=== PATIENT | male | born 1955 | race Caucasian/White ===

== ENCOUNTER 2019-06-24 08:19 | Outpatient (RCR) | payer MEDICARE, SELFPAY | END 2019-07-02 00:01 | LOC: WOUND 08:19 | PROVIDERS: Family Provider Physician Assistant Medical; Visit Provider Nurse Practitioner Family | DX: E11.622 Type 2 diabetes mellitus with other skin ulcer (principal); L97.822 Non-pressure chronic ulcer of other part of left lower leg with fat layer exposed; L97.812 Non-pressure chronic ulcer of other part of right lower leg with fat layer exposed; E11.621 Type 2 diabetes mellitus with foot ulcer; L97.422 Non-pressure chronic ulcer of left heel and midfoot with fat layer exposed ==

== ENCOUNTER 2019-07-29 08:38 | Outpatient (RCR) | payer MEDICARE, OTHER, SELFPAY | END 2019-08-02 23:59 | disposition home or self-care (01) | LOC: WOUND 08:38 | PROVIDERS: Family Provider Physician Assistant Medical; Visit Provider Nurse Practitioner Family | DX: E11.622 Type 2 diabetes mellitus with other skin ulcer (principal); I87.2 Venous insufficiency (chronic) (peripheral); L97.822 Non-pressure chronic ulcer of other part of left lower leg with fat layer exposed; E11.621 Type 2 diabetes mellitus with foot ulcer; L97.422 Non-pressure chronic ulcer of left heel and midfoot with fat layer exposed | CPT/HCPCS: 11042; 99214; G0463 ==

== ENCOUNTER 2019-08-28 08:18 | Outpatient (RCR) | payer MEDICARE, OTHER, SELFPAY | END 2019-08-31 23:59 | disposition home or self-care (01) | LOC: WOUND 08:18 | PROVIDERS: Family Provider Physician Assistant Medical; Visit Provider Nurse Practitioner Family | DX: E11.621 Type 2 diabetes mellitus with foot ulcer (principal); L97.422 Non-pressure chronic ulcer of left heel and midfoot with fat layer exposed; I87.2 Venous insufficiency (chronic) (peripheral); L97.822 Non-pressure chronic ulcer of other part of left lower leg with fat layer exposed | CPT/HCPCS: 11042; 87070; 87077; 87176; 87186; 87205; G0463 ==

== ENCOUNTER 2019-09-18 08:51 | Outpatient (RCR) | payer MEDICARE, OTHER, MEDICAID, SELFPAY | END 2019-10-01 23:59 | disposition home or self-care (01) | LOC: WOUND 08:51 | PROVIDERS: Family Provider Physician Assistant Medical; Visit Provider Emergency Medicine | DX: E11.621 Type 2 diabetes mellitus with foot ulcer (principal); L97.422 Non-pressure chronic ulcer of left heel and midfoot with fat layer exposed; I87.2 Venous insufficiency (chronic) (peripheral); L97.822 Non-pressure chronic ulcer of other part of left lower leg with fat layer exposed | CPT/HCPCS: 11042; L4397 ==

== ENCOUNTER 2019-11-02 22:42 | Emergency (ER) | payer MEDICARE, MEDICAID, SELFPAY ==
[2019-11-02 22:51] VITALS: BP 137/52; PULSE 84; RESP 24; TEMP 38.4; O2SAT 94; BMI 70.6
--- NOTE | 2019-11-02 23:10 | XRR_ITS ---
PROCEDURE INFORMATION: Exam: XR Chest, 1 View Exam date and time: 11/02/2019 11:35 PM Age: 63 years old Clinical indication: Patient HX: C/O fever and weakness TECHNIQUE: Imaging protocol: XR of the chest Views: 1 view. COMPARISON: CR Chest 1 [place] [id number] 07/16/2017 1:15 PM FINDINGS: Lungs: Unremarkable. No consolidation. Pleural space: Unremarkable. No pleural effusion. No pneumothorax. Heart/Mediastinum: Unremarkable. No cardiomegaly. Bones/joints: Unremarkable. XR/XR chest 1V portable [id number] IMPRESSION: No acute findings.
--- NOTE | 2019-11-02 23:15 | W.ED.FALL ---
HPI - Fall General: Chief Complaint: Fall Stated Complaint: FALL/ LOW GRADE TEMP Time Seen by Provider: 11/02/19 22:59 History of Present Illness: HPI Narrative: 63-year-old male presents with generalized weakness, and fall. He states he has had a fever for 6 to 7 days. He has had very little oral intake other than water. He has been generally weak. Tonight, he fell from standing onto his back. He does not complain of back pain. He complains of pain in his left lower quadrant and left groin area. He has a bit of a chronic cough after a bilateral pneumonia in 2018. Otherwise no symptoms as far as his fever. He is not vomited. He did have a colectomy following diverticulitis years ago. MD complaint: fall and other (fever) Onset (ago): day(s) (6) Fall from: standing Fall witnessed: no Place fall occurred: home Prolonged down time: no Symptoms prior to fall: other (generalized weakness) Associated symptoms-after fall: Reports abdominal pain and difficulty walking; Denies chest pain, hematuria or neck pain Review of Systems Const: Reports: fever; Denies: chills Eyes: Denies: change in vision or blurry vision ENMT: Denies: painful swallowing, swelling of lips/tongue, dental pain, Change in hearing or facial/sinus pain Card: Reports: edema; Denies: chest pain, palpitations or irregular heart rhythm Resp: Reports: shortness of breath (chronic) and non-productive cough (chronic, unchanged); Denies: productive cough or wheezing GI: Reports: abdominal pain and nausea; Denies: vomiting, blood in stool or black tarry stool : Denies: difficulty urinating, painful urination or blood in urine Musc: Denies: neck pain, back pain, redness or joint warmth Skin/Breast: Denies: rash or itching Neuro: Reports: difficulty walking Psych: Denies: anxiety PFSH ED PFSH: Social History Smoking and tobacco status: never smoked Physical Exam Const: GENERAL APPEARANCE: well developed ORIENTATION/CONSCIOUSNESS: Yes oriented to person, Yes oriented to place and Yes oriented to time HENMT: COMMON NORMALS: normocephalic, external ears normal and external nose normal HEAD & SCALP: normocephalic NOSE: external nose normal and no nasal discharge EXTERNAL EAR: Yes external ears normal Eye: COMMON NORMALS: PERRL, EOMs intact bilaterally and conjunctivae normal EYELID: eyelids normal CONJUNCTIVA: Yes conjunctivae normal PUPIL: Yes PERRL Neck/C-Spine: GENERAL: No tracheal deviation Chest: COMMONS NORMALS: inspection of chest normal CHEST: No tenderness Resp: COMMON NORMALS: clear to auscultation bilaterally EFFORT & INSPECTION: No tachypneic, No respiratory distress, No retractions, No uses accessory muscles and No tracheal deviation AUSCULTATION: clear to auscultation bilaterally, no rhonchi, no wheezes and lung sounds not diminished Cardio: COMMON NORMALS: regular rate and regular rhythm RATE: regular rate RHYTHM: regular rhythm HEART SOUNDS: no murmurs PERIPHERAL PULSES: radial pulses present GI: INSPECTION: No abdominal distension AUSCULTATION: No hyperactive bowel sounds and No hypoactive bowel sounds PALPATION: Yes tender Details: LLQ, No guarding and No rigid PERCUSSION: no dullness to percussion and no tympanic to percussion Neuro: SENSORIUM/ORIENTATION: Yes oriented to person, Yes oriented to place and Yes oriented to time Psych: COMMON NORMALS: mental status grossly normal Skin: COMMON NORMALS: no rashes or lesions noted GENERAL SKIN EXAM: no rashes or lesions noted Course Vital Signs: Vital signs: Vital Signs Temperature 101.1 F H 11/02/19 22:51 Pulse Rate 84 11/02/19 22:51 Respiratory Rate 24 H 11/02/19 22:51 Blood Pressure 137/52 11/02/19 22:51 Pulse Oximetry 94 11/02/19 22:51 MDM - Fall MDM Narrative: Medical decision making narrative: 63-year-old male with a fever of 101 - 102 for the past few days. His white blood cell count is 16. His chest x-ray is negative. he has left lower quadrant tenderness. He has a history of diverticulitis. This patient weighs 550 pounds, and exceeds our CT scanner weight limit. He has a history of diverticulitis status post hemicolectomy in the past. I suspect diverticulitis. His urinalysis is been acquired but pending. His blood cultures are pending. He is receiving Zosyn. [facility] is the closest CT scanner. We have an accepting emergency room physician there. We will set up his transfer. He will go by ground. Blood pressure currently 115/49, saturations 94% on room air. Heart rate 100. Lab Data: Labs: Lab Results 11/02/19 11/02/19 11/02/19 Range/Units 23:20 23:20 23:40 WBC 16.1 H (4.0-10.0) 10^3/ uL RBC 3.78 L (4.1-5.3) 10^6/u L Hgb 11.5 L (11.7-16.6) g/dL Hct 36.1 L (42.0-52.0) % MCV 95.5 H (80-94) fL MCH 30.4 (28.0-34.0) pg MCHC 31.9 (30.0-36.0) g/dL RDW 14.2 (12.1-15.1) % Plt Count 281 (130-400) 10^3/c mm MPV 8.7 (7.4-10.4) fL Neut % (Auto) 78.7 % Lymph % (Auto) 8.7 % [place] % (Auto) 9.5 % Eos % (Auto) 0.1 % Baso % (Auto) 0.2 % Neut # (Auto) 12.7 H (1.8-7.7) 10^3/u L Lymph # (Auto) 1.4 (0.8-4.8) 10^3/u L [place] # (Auto) 1.5 H (0.2-0.9) 10^3/u L Eos # (Auto) 0.0 (0.0-0.8) 10^3/u L Baso # (Auto) 0.0 (0.0-0.1) 10^3/u L Nucleated RBC % (a uto) 0 % Nucleated RBCs # 0.0 /100WBC Sodium 133 L (136-145) mmol/L Potassium 4.0 (3.5-5.1) mmol/L Chloride 95 L (98-107) mmol/L Carbon Dioxide 24 (22-29) mmol/L Anion Gap 18.0 (5-19) BUN 22 (8-23) mg/dL Creatinine 1.6 H (0.7-1.2) mg/dL GFR Calculation 44.2 L (90-130) mL/min Glucose 140 H (65-115) mg/dL Calculated Osmolal ity 275 L (285-295) mOsm/k g Lactate 0.9 (0.5-2.2) mmol/L Calcium 9.1 (8.5-10.5) mg/dL Total Bilirubin 0.6 (0.15-1.2) mg/dL AST 39 (0-40) U/L ALT 34 (0-41) U/L Alkaline Phosphata se 85 (40-130) IU/L C-Reactive Protein 371.6 H (0.0-4.9) mg/L Total Protein 7.7 (6.6-8.7) g/dL Albumin 3.3 L (3.5-5.2) g/dL Globulin 4.4 (1.3-4.6) g/dL Lipase 14 (13-60) U/L Discharge Plan Discharge Prescriptions: No Action Unable to Assess RF: 0 Coding Level of Care Code ED Campus Administrator for Chg Fwd Exam Comprehensive
[2019-11-02 23:52] LABS: Basophils % 0.2 %; Eosinophils % 0.1 %; Hematocrit 36.1 % (42.0-52.0); Hemoglobin 11.5 g/dL (11.7-16.6); Lymphocytes # 1.4 10^3/uL (0.8-4.8); Lymphocytes % 8.7 %; Mean Corpuscular HGB Conc 31.9 g/dL (30.0-36.0); Mean Corpuscular Hemoglobin 30.4 pg (28.0-34.0); Mean Corpuscular Volume 95.5 fL (80-94); Mean Platelet Volume 8.7 fL (7.4-10.4); Monocytes # 1.5 10^3/uL (0.2-0.9); Monocytes % 9.5 %; Neutrophils # 12.7 10^3/uL (1.8-7.7); Neutrophils % 78.7 %; Nucleated Red Blood Cells % 0 %; Platelet Count 281 10^3/cmm (130-400); Red Blood Count 3.78 10^6/uL (4.1-5.3); Red Cell Distribution Width 14.2 % (12.1-15.1); White Blood Count 16.1 10^3/uL (4.0-10.0)
[2019-11-02 23:55] VITALS: BP 124/62; PULSE 82; RESP 16; O2SAT 96
[2019-11-02 23:59] LABS: Alanine Aminotransferase 34 U/L (0-41); Albumin Level 3.3 g/dL (3.5-5.2); Alkaline Phosphatase 85 IU/L (40-130); Aspartate Amino Transferase 39 U/L (0-40); Blood Urea Nitrogen 22 mg/dL (8-23); Calcium 9.1 mg/dL (8.5-10.5); Carbon Dioxide 24 mmol/L (22-29); Chloride 95 mmol/L (98-107); Globulin 4.4 g/dL (1.3-4.6); Glomerular Filtration Rate 44.2 mL/min (90-130); Glucose 140 mg/dL (65-115); Lipase 14 U/L (13-60); Osmolality Calculated 275 mOsm/kg (285-295); Sodium 133 mmol/L (136-145); Total Bilirubin 0.6 mg/dL (0.15-1.2); Total Protein 7.7 g/dL (6.6-8.7)
[2019-11-03] MEDS: ondansetron 2 mg/ML SDV 2 mL 4 MG IVP (00:04)
[2019-11-03 00:05] LABS: Lactate (Lactic Acid level) 0.9 mmol/L (0.5-2.2)
[2019-11-03] MEDS: sodium chloride 0.9% 1,000 ML 999 ML IV (00:05)
[2019-11-03] MEDS: acetaminophen 325 mg Tablet 650 MG PO (00:05)
[2019-11-03] MEDS: morphine 4 mg/mL SDV 1 mL IVP (00:11)
[2019-11-03 00:14] LABS: C Reactive Protein 371.6 mg/L (0.0-4.9)
[2019-11-03 01:22] VITALS: BP 115/49; PULSE 78; RESP 18; O2SAT 96
[2019-11-03 01:30] VITALS: TEMP 37.4
[2019-11-03] MEDS: piperacillin-tazobactam 3.375 GM in sodium chloride 0.9% (plus) 50 ML IV ×2 (01:50→06:56)
[2019-11-03 02:30] VITALS: BP 136/49; PULSE 72; RESP 16; O2SAT 96
[2019-11-03 03:30] VITALS: BP 140/48; PULSE 78; RESP 16; O2SAT 94
--- NOTE | 2019-11-03 04:50 | PC.NURSE ---
Patient resting in bed with eyes closed. Patient to be transfered after 0700 by EMS.
[2019-11-03 07:00] VITALS: BP 142/66; RESP 18; O2SAT 96
[2019-11-03 07:37] LABS: Add Urine Microscopic? YES; Bilirubin Urine Neg (NEGATIVE); Blood Urine 2+ (Negative); Glucose Urine UA Norm (Normal); Ketones Urine 1+ (Negative); Leukocyte Esterase Urine Negative (Negative); Nitrate Urine Negative (Negative); Protein Urine 1+ (Negative); Urine Color Yellow (Yellow); Urobilinogen Urine 1 mg/dL (Negative); pH Urine 5 (5-7)
[2019-11-03 07:38] LABS: Add Urine Culture? No; Amorphous Sediment Urine 1+; Bacteria Urine TRACE; RBC Urine RARE /hpf (0-2); Squamous Epithelial Cell Urine RARE (0-5); WBC Urine 0-4 /hpf (0-5)
--- NOTE | 2019-11-03 23:07 | PC.NURSE ---
Received positive blood culture from lab (gram positive cocci in clusters), patient transferred to other facility, given zosyn prior to transfer. advised Dr. Banuelos, advised we will await final blood culture report.
== END 2019-11-03 07:50 ==
LOC: ER 11-03 00:09
PROVIDERS: Emergency Provider Emergency Medicine; Family Provider Physician Assistant Medical; PCP Physician Assistant Medical
DX: R53.1 Weakness (principal)
CPT/HCPCS: 12345; 71045; 80053; 81001; 83605; 83690; 85025; 86140; 87040; 87205; 96365; 96367; 96374; 96375; 99283; 99285; J2270; J2405; J2543; J7030

== ENCOUNTER 2019-12-09 10:16 | Outpatient (CLI) | payer MEDICARE, MEDICAID, SELFPAY | END 2019-12-09 10:17 | disposition home or self-care (01) | LOC: WOUND 10:18 | PROVIDERS: PCP Physician Assistant Medical; Visit Provider Nurse Practitioner Family | DX: E11.621 Type 2 diabetes mellitus with foot ulcer (principal); L97.522 Non-pressure chronic ulcer of other part of left foot with fat layer exposed; E11.622 Type 2 diabetes mellitus with other skin ulcer; L97.812 Non-pressure chronic ulcer of other part of right lower leg with fat layer exposed; L97.822 Non-pressure chronic ulcer of other part of left lower leg with fat layer exposed; I87.2 Venous insufficiency (chronic) (peripheral) | CPT/HCPCS: 11042; 99214; G0463 ==

== ENCOUNTER 2019-12-16 09:43 | Outpatient (CLI) | payer MEDICARE, MEDICAID, SELFPAY | END 2019-12-16 09:44 | disposition home or self-care (01) | LOC: WOUND 09:45 | PROVIDERS: PCP Physician Assistant Medical; Visit Provider Nurse Practitioner Family | DX: I87.2 Venous insufficiency (chronic) (peripheral) (principal); L97.812 Non-pressure chronic ulcer of other part of right lower leg with fat layer exposed; L97.822 Non-pressure chronic ulcer of other part of left lower leg with fat layer exposed; E11.621 Type 2 diabetes mellitus with foot ulcer; L97.522 Non-pressure chronic ulcer of other part of left foot with fat layer exposed | CPT/HCPCS: 11042; 11045 ==

== ENCOUNTER 2019-12-23 09:17 | Outpatient (CLI) | payer MEDICARE, MEDICAID, SELFPAY | END 2019-12-23 09:18 | disposition home or self-care (01) | LOC: WOUND 09:20 | PROVIDERS: PCP Physician Assistant Medical; Visit Provider Nurse Practitioner Family | DX: E11.621 Type 2 diabetes mellitus with foot ulcer (principal); L97.522 Non-pressure chronic ulcer of other part of left foot with fat layer exposed; L97.422 Non-pressure chronic ulcer of left heel and midfoot with fat layer exposed; I87.2 Venous insufficiency (chronic) (peripheral); L97.812 Non-pressure chronic ulcer of other part of right lower leg with fat layer exposed; L97.822 Non-pressure chronic ulcer of other part of left lower leg with fat layer exposed | CPT/HCPCS: 11042; 11045 ==

== ENCOUNTER 2019-12-30 10:19 | Outpatient (CLI) | payer MEDICARE, MEDICAID, SELFPAY | END 2019-12-30 10:20 | disposition home or self-care (01) | LOC: WOUND 10:22 | PROVIDERS: PCP Physician Assistant Medical; Visit Provider Nurse Practitioner Family | DX: E11.621 Type 2 diabetes mellitus with foot ulcer (principal); L97.422 Non-pressure chronic ulcer of left heel and midfoot with fat layer exposed; I87.2 Venous insufficiency (chronic) (peripheral); L97.812 Non-pressure chronic ulcer of other part of right lower leg with fat layer exposed; L97.822 Non-pressure chronic ulcer of other part of left lower leg with fat layer exposed | CPT/HCPCS: 11042; 11045 ==

== ENCOUNTER 2020-01-13 09:24 | Outpatient (CLI) | payer MEDICARE, MEDICAID, SELFPAY | END 2020-01-13 09:25 | disposition home or self-care (01) | LOC: WOUND 09:27 | PROVIDERS: PCP Emergency Medicine; Visit Provider Emergency Medicine | DX: E11.621 Type 2 diabetes mellitus with foot ulcer (principal); L97.422 Non-pressure chronic ulcer of left heel and midfoot with fat layer exposed; I87.2 Venous insufficiency (chronic) (peripheral); L97.812 Non-pressure chronic ulcer of other part of right lower leg with fat layer exposed; L97.822 Non-pressure chronic ulcer of other part of left lower leg with fat layer exposed; L97.522 Non-pressure chronic ulcer of other part of left foot with fat layer exposed | CPT/HCPCS: 11042; 11045 ==

== ENCOUNTER 2020-01-20 13:06 | Outpatient (CLI) | payer MEDICARE, MEDICAID, SELFPAY | END 2020-01-20 13:07 | disposition home or self-care (01) | LOC: WOUND 13:09 | PROVIDERS: PCP Emergency Medicine; Visit Provider Emergency Medicine | DX: E11.621 Type 2 diabetes mellitus with foot ulcer (principal); L97.422 Non-pressure chronic ulcer of left heel and midfoot with fat layer exposed; E11.622 Type 2 diabetes mellitus with other skin ulcer; L97.812 Non-pressure chronic ulcer of other part of right lower leg with fat layer exposed; L97.822 Non-pressure chronic ulcer of other part of left lower leg with fat layer exposed; L97.522 Non-pressure chronic ulcer of other part of left foot with fat layer exposed | CPT/HCPCS: 11042; 11045 ==

== ENCOUNTER 2020-01-27 10:12 | Outpatient (CLI) | payer MEDICARE, MEDICAID, SELFPAY ==
--- NOTE | 2020-01-27 10:20 | XR_ITS ---
WS: [id number] LEFT FOOT: 3 VIEW(S) TECHNIQUE: AP, oblique and lateral. HISTORY: PAIN REDNESS NON HEALING ULCER COMPARISON: None available. Diffuse osteopenia. No fractures or displacements. Normal tarsal/metatarsal alignment. Extensive soft tissue edema surrounding the entire foot. Superficial soft tissue ulceration posterior to the calcaneus. Soft tissue ulceration measuring 2.0 cm. There is an additional possible ulceratio n more inferior measuring 2.6 cm. Seen only on the lateral projection is a possible ulceration along the plantar surface of the foot at the level of the proximal phalanges. XR/XR foot LT min 3V* [id number] IMPRESSION: 1. Soft tissue ulceration posterior to the calcaneus measures 2.0 cm. No osteo myelitis. 2. Possible additional ulcerations which are very superficial along the swatch maker ior calcaneus and also plantar surface of the foot.
== END 2020-01-27 10:13 | disposition home or self-care (01) ==
LOC: RADWPI 10:19
PROVIDERS: Family Provider Physician Assistant Medical; PCP Physician Assistant Medical; Visit Provider Emergency Medicine
DX: M79.672 Pain in left foot (principal); L53.9 Erythematous condition, unspecified; L97.522 Non-pressure chronic ulcer of other part of left foot with fat layer exposed
CPT/HCPCS: 73630

== ENCOUNTER 2020-02-03 09:57 | Outpatient (CLI) | payer MEDICARE, MEDICAID, SELFPAY | END 2020-02-03 09:58 | disposition home or self-care (01) | LOC: WOUND 09:58 | PROVIDERS: Family Provider Physician Assistant Medical; PCP Physician Assistant Medical; Visit Provider Nurse Practitioner Family | DX: E11.621 Type 2 diabetes mellitus with foot ulcer (principal); L97.422 Non-pressure chronic ulcer of left heel and midfoot with fat layer exposed; L97.522 Non-pressure chronic ulcer of other part of left foot with fat layer exposed; I87.2 Venous insufficiency (chronic) (peripheral); L97.812 Non-pressure chronic ulcer of other part of right lower leg with fat layer exposed; L97.822 Non-pressure chronic ulcer of other part of left lower leg with fat layer exposed | CPT/HCPCS: 11042; 11045 ==

== ENCOUNTER 2020-02-10 08:20 | Outpatient (CLI) | payer MEDICARE, MEDICAID, SELFPAY | END 2020-02-10 08:21 | disposition home or self-care (01) | LOC: WOUND 08:21 | PROVIDERS: Family Provider Physician Assistant Medical; PCP Physician Assistant Medical; Visit Provider Emergency Medicine | DX: E11.621 Type 2 diabetes mellitus with foot ulcer (principal); L97.422 Non-pressure chronic ulcer of left heel and midfoot with fat layer exposed; L97.522 Non-pressure chronic ulcer of other part of left foot with fat layer exposed; I87.2 Venous insufficiency (chronic) (peripheral); L97.812 Non-pressure chronic ulcer of other part of right lower leg with fat layer exposed; L97.822 Non-pressure chronic ulcer of other part of left lower leg with fat layer exposed | CPT/HCPCS: 11042; 11043; 11046; 97597; 97598 ==

== ENCOUNTER 2020-02-17 08:24 | Outpatient (CLI) | payer MEDICARE, MEDICAID, SELFPAY | END 2020-02-17 08:25 | disposition home or self-care (01) | LOC: WOUND 08:25 | PROVIDERS: Family Provider Physician Assistant Medical; PCP Physician Assistant Medical; Visit Provider Emergency Medicine | DX: E11.621 Type 2 diabetes mellitus with foot ulcer (principal); L97.422 Non-pressure chronic ulcer of left heel and midfoot with fat layer exposed; I87.2 Venous insufficiency (chronic) (peripheral); L97.822 Non-pressure chronic ulcer of other part of left lower leg with fat layer exposed; L97.812 Non-pressure chronic ulcer of other part of right lower leg with fat layer exposed; L97.522 Non-pressure chronic ulcer of other part of left foot with fat layer exposed | CPT/HCPCS: 11042; 11045 ==

== ENCOUNTER 2020-02-24 08:42 | Outpatient (CLI) | payer MEDICARE, MEDICAID, SELFPAY | END 2020-02-24 08:43 | disposition home or self-care (01) | LOC: WOUND 08:43 | PROVIDERS: Family Provider Physician Assistant Medical; PCP Physician Assistant Medical; Visit Provider Emergency Medicine | DX: E11.621 Type 2 diabetes mellitus with foot ulcer (principal); L97.422 Non-pressure chronic ulcer of left heel and midfoot with fat layer exposed; L97.522 Non-pressure chronic ulcer of other part of left foot with fat layer exposed; I87.2 Venous insufficiency (chronic) (peripheral); L97.812 Non-pressure chronic ulcer of other part of right lower leg with fat layer exposed; L97.822 Non-pressure chronic ulcer of other part of left lower leg with fat layer exposed | CPT/HCPCS: 11042 ==

== ENCOUNTER 2020-03-12 08:10 | Outpatient (CLI) | payer MEDICARE, MEDICAID, SELFPAY | END 2020-03-12 08:11 | disposition home or self-care (01) | LOC: WOUND 08:10 | PROVIDERS: Family Provider Physician Assistant Medical; PCP Physician Assistant Medical; Visit Provider Emergency Medicine | DX: E11.621 Type 2 diabetes mellitus with foot ulcer (principal); L97.422 Non-pressure chronic ulcer of left heel and midfoot with fat layer exposed; L97.522 Non-pressure chronic ulcer of other part of left foot with fat layer exposed; I87.2 Venous insufficiency (chronic) (peripheral); L97.812 Non-pressure chronic ulcer of other part of right lower leg with fat layer exposed; L97.822 Non-pressure chronic ulcer of other part of left lower leg with fat layer exposed | CPT/HCPCS: 11042 ==

== ENCOUNTER 2020-03-19 08:01 | Outpatient (CLI) | payer MEDICARE, MEDICAID, SELFPAY | END 2020-03-19 08:02 | disposition home or self-care (01) | LOC: WOUND 08:01 | PROVIDERS: Family Provider Physician Assistant Medical; PCP Physician Assistant Medical; Visit Provider Emergency Medicine | DX: E11.621 Type 2 diabetes mellitus with foot ulcer (principal); L97.422 Non-pressure chronic ulcer of left heel and midfoot with fat layer exposed; L97.522 Non-pressure chronic ulcer of other part of left foot with fat layer exposed; I87.2 Venous insufficiency (chronic) (peripheral); L97.812 Non-pressure chronic ulcer of other part of right lower leg with fat layer exposed; L97.822 Non-pressure chronic ulcer of other part of left lower leg with fat layer exposed | CPT/HCPCS: 11042 ==

== ENCOUNTER 2020-03-26 08:52 | Outpatient (CLI) | payer MEDICARE, MEDICAID, SELFPAY | END 2020-03-26 08:53 | disposition home or self-care (01) | LOC: WOUND 08:53 | PROVIDERS: Family Provider Physician Assistant Medical; PCP Physician Assistant Medical; Visit Provider Nurse Practitioner Family | DX: E11.621 Type 2 diabetes mellitus with foot ulcer (principal); L97.422 Non-pressure chronic ulcer of left heel and midfoot with fat layer exposed; L97.522 Non-pressure chronic ulcer of other part of left foot with fat layer exposed; E11.622 Type 2 diabetes mellitus with other skin ulcer; L97.812 Non-pressure chronic ulcer of other part of right lower leg with fat layer exposed; L97.822 Non-pressure chronic ulcer of other part of left lower leg with fat layer exposed | CPT/HCPCS: 11042 ==

== ENCOUNTER 2020-04-02 08:09 | Outpatient (CLI) | payer MEDICARE, MEDICAID, SELFPAY | END 2020-04-02 08:10 | disposition home or self-care (01) | LOC: WOUND 08:10 | PROVIDERS: Family Provider Physician Assistant Medical; PCP Physician Assistant Medical; Visit Provider Nurse Practitioner Family | DX: E11.621 Type 2 diabetes mellitus with foot ulcer (principal); L97.422 Non-pressure chronic ulcer of left heel and midfoot with fat layer exposed; L97.522 Non-pressure chronic ulcer of other part of left foot with fat layer exposed | CPT/HCPCS: 11042 ==

== ENCOUNTER 2020-04-09 08:08 | Outpatient (CLI) | payer MEDICARE, MEDICAID, SELFPAY | END 2020-04-09 08:09 | disposition home or self-care (01) | LOC: WOUND 08:09 | PROVIDERS: Family Provider Physician Assistant Medical; PCP Physician Assistant Medical; Visit Provider Surgery | DX: E11.621 Type 2 diabetes mellitus with foot ulcer (principal); L97.522 Non-pressure chronic ulcer of other part of left foot with fat layer exposed; E11.622 Type 2 diabetes mellitus with other skin ulcer; L97.812 Non-pressure chronic ulcer of other part of right lower leg with fat layer exposed; L97.822 Non-pressure chronic ulcer of other part of left lower leg with fat layer exposed; L89.622 Pressure ulcer of left heel, stage 2 | CPT/HCPCS: 29581; G0463 ==

== ENCOUNTER 2020-04-16 08:11 | Outpatient (CLI) | payer MEDICARE, MEDICAID, SELFPAY | END 2020-04-16 08:12 | disposition home or self-care (01) | LOC: WOUND 08:12 | PROVIDERS: Family Provider Physician Assistant Medical; PCP Physician Assistant Medical; Visit Provider Nurse Practitioner Family | DX: E11.621 Type 2 diabetes mellitus with foot ulcer (principal); L97.422 Non-pressure chronic ulcer of left heel and midfoot with fat layer exposed; I87.2 Venous insufficiency (chronic) (peripheral); L97.822 Non-pressure chronic ulcer of other part of left lower leg with fat layer exposed | CPT/HCPCS: 97597; 97598 ==

== ENCOUNTER 2020-04-23 08:08 | Outpatient (CLI) | payer MEDICARE, MEDICAID, SELFPAY | END 2020-04-23 08:09 | disposition home or self-care (01) | LOC: WOUND 08:09 | PROVIDERS: Family Provider Physician Assistant Medical; PCP Physician Assistant Medical; Visit Provider Nurse Practitioner Family | DX: E11.621 Type 2 diabetes mellitus with foot ulcer (principal); L97.421 Non-pressure chronic ulcer of left heel and midfoot limited to breakdown of skin; I87.2 Venous insufficiency (chronic) (peripheral); L97.822 Non-pressure chronic ulcer of other part of left lower leg with fat layer exposed | CPT/HCPCS: 11042; 11045 ==

== ENCOUNTER 2020-05-14 08:27 | Outpatient (CLI) | payer MEDICARE, MEDICAID, SELFPAY | END 2020-05-14 08:28 | disposition home or self-care (01) | LOC: WOUND 08:28 | PROVIDERS: Family Provider Physician Assistant Medical; PCP Physician Assistant Medical; Visit Provider Nurse Practitioner Family | DX: E11.621 Type 2 diabetes mellitus with foot ulcer (principal); L97.421 Non-pressure chronic ulcer of left heel and midfoot limited to breakdown of skin; I87.2 Venous insufficiency (chronic) (peripheral); L97.822 Non-pressure chronic ulcer of other part of left lower leg with fat layer exposed | CPT/HCPCS: 11042; A6545 ==

== ENCOUNTER 2020-05-21 08:03 | Outpatient (CLI) | payer MEDICARE, MEDICAID, SELFPAY | END 2020-05-21 08:04 | disposition home or self-care (01) | LOC: WOUND 08:04 | PROVIDERS: Family Provider Physician Assistant Medical; PCP Physician Assistant Medical; Visit Provider Nurse Practitioner Family | DX: E11.621 Type 2 diabetes mellitus with foot ulcer (principal); L97.421 Non-pressure chronic ulcer of left heel and midfoot limited to breakdown of skin; I87.2 Venous insufficiency (chronic) (peripheral); L97.822 Non-pressure chronic ulcer of other part of left lower leg with fat layer exposed | CPT/HCPCS: 11042; 11045 ==

== ENCOUNTER 2020-05-25 13:43 | Outpatient (CLI) | payer MEDICARE, MEDICAID, SELFPAY | END 2020-05-25 13:44 | disposition home or self-care (01) | LOC: WOUND 13:44 | PROVIDERS: Family Provider Physician Assistant Medical; PCP Physician Assistant Medical; Visit Provider Nurse Practitioner Family | DX: E11.621 Type 2 diabetes mellitus with foot ulcer (principal); L97.422 Non-pressure chronic ulcer of left heel and midfoot with fat layer exposed; I87.2 Venous insufficiency (chronic) (peripheral); L97.822 Non-pressure chronic ulcer of other part of left lower leg with fat layer exposed | CPT/HCPCS: 11042 ==

== ENCOUNTER 2020-06-11 08:44 | Outpatient (CLI) | payer MEDICARE, MEDICAID, SELFPAY | END 2020-06-11 08:45 | disposition home or self-care (01) | LOC: WOUND 08:44 | PROVIDERS: Family Provider Physician Assistant Medical; PCP Physician Assistant Medical; Visit Provider Nurse Practitioner Family | DX: E11.621 Type 2 diabetes mellitus with foot ulcer (principal); L97.422 Non-pressure chronic ulcer of left heel and midfoot with fat layer exposed; E11.622 Type 2 diabetes mellitus with other skin ulcer; L97.822 Non-pressure chronic ulcer of other part of left lower leg with fat layer exposed | CPT/HCPCS: 11042 ==

== ENCOUNTER 2020-07-15 16:16 | Emergency (ER) | payer MEDICARE, MEDICAID, SELFPAY ==
[2020-07-15] VITALS (7 sets, daily range): BP systolic 119–178; BP diastolic 51–90; PULSE 68–84; RESP 16–24; TEMP 38.6; O2SAT 64–97; BMI 70.6
--- NOTE | 2020-07-15 16:48 | ECG_ITS ---
[facility] Test Date: 2020-07-15 Pat Name: Kenney Olea Department: Room: Gender: Male Visual Merchandising Associate: : 1955 Requested By: Juan Diego Joseph Order Number: [id number] Shelley MD: Lila Gerber M.D. Measurements Intervals [place] Rate: 67 P: 33 HI: 158 QRS: 37 QRSD: 108 T: 62 QT: 362 QTc: 382 Interpretive Statements SINUS RHYTHM WITH OCCASIONAL VENTRICULAR PREMATURE COMPLEXES NONSPECIFIC T-WAVE ABNORMALITY Compared to ECG 07/16/2017 11:58:33 Ventricular premature complex(es) now present T-wave abnormality now present Sinus tachycardia no longer present Intraventricular conduction delay no longer present Electronically Signed On 07-15-2020 19:16:39 ENTRY LEVEL MARKETING REPRESENTATIVE by Lila Gerber M.D. [email or web address] coast veterans health care systemChanRx Corpcleveland clinic union [facility].[employer]/store/OM/[id number]
[2020-07-15 17:00] LABS: Basophils # 0.1 10^3/uL (0.0-0.1); Basophils % 0.5 %; Hematocrit 31.6 % (42.0-52.0); Hemoglobin 9.9 g/dL (11.7-16.6); Lymphocytes % 8.8 %; Mean Corpuscular HGB Conc 31.3 g/dL (30.0-36.0); Mean Corpuscular Hemoglobin 30.7 pg (28.0-34.0); Mean Corpuscular Volume 98.1 fL (80-94); Mean Platelet Volume 8.7 fL (7.4-10.4); Monocytes # 1.4 10^3/uL (0.2-0.9); Monocytes % 13.1 %; Neutrophils % 77.1 %; Nucleated Red Blood Cells % 0 %; Platelet Count 220 10^3/cmm (130-400); Red Blood Count 3.22 10^6/uL (4.1-5.3); Red Cell Distribution Width 14.3 % (12.1-15.1)
--- NOTE | 2020-07-15 17:01 | ED_ITS ---
Documented by User: Juan Diego Agee DO 07/17/20 13:12 HPI - Abdominal Pain General: Chief Complaint: Abdominal Pain Stated Complaint: ABDOMINAL PAIN/ NAUSEA Time Seen by Provider: 07/15/20 16:38 History of Present Illness: HPI narrative: 64-year-old male presents complaining of left lower quadrant abdominal pain that began earlier today he has had loose stools nausea but no vomiting. He has had some blood in the stools but states that is almost chronic. Patient is diabetic he has chronic diabetic foot ulcers he states his tailbone is sore but denies having any sacral ulcer there. He is running fever and had a temp of 1014 on arrival here. Patient is severely morbidly obese. Refers his pain to the left lower quadrant. MD elicited complaint: abdominal pain Pertinent past history: diverticulitis Pain Consistency: constant Location: LLQ Severity: severe Quality: cramping and stabbing Radiation: none Migration to: no migration Exacerbating factors: nothing Relieving factors: nothing Associated Symptoms: Reports chills, diarrhea, fever(s), nausea and poor appetite; Denies anorexia, belching, bloating, change in bowel habits, change in stool character, coffee ground emesis, constipation, GI cramping, dyspepsia, dysuria, excessive flatus, heartburn, hematochezia, hematuria, hematemesis, fecal incontinence, loose stools, melena, syncope and vomiting Review of Systems Const: Reports: fever(s) and chills ENMT: Denies: throat pain, ear or mastoid pain, nasal discharge or nasal congestion Card: Denies: syncope Resp: Denies: dyspnea, productive cough or non-productive cough GI: Reports: nausea and diarrhea; Denies: vomiting, hematemesis, coffee ground emesis, heartburn, constipation, bloating, GI cramping, belching, excessive flatus, fecal incontinence, change in bowel habits, change in stool character, hematochezia or melena : Denies: dysuria or hematuria Skin/Breast: Denies: rash or pruritus PFSH ED PFSH: Social History Smoking and tobacco status: never smoked Physical Exam Const: COMMON NORMALS: no acute distress GENERAL APPEARANCE: cooperative and comfortable ORIENTATION/CONSCIOUSNESS: Yes awake, Yes oriented to person, Yes oriented to place and Yes oriented to time HENMT: COMMON NORMALS: normocephalic, atraumatic and hearing grossly normal bilaterally HEAD & SCALP: normocephalic and atraumatic Neck/C-Spine: COMMON NORMALS: no JVD Resp: COMMON NORMALS: normal respiratory effort, No retractions, No use of accessory muscles and clear to auscultation bilaterally AUSCULTATION: clear to auscultation bilaterally Cardio: COMMON NORMALS: no JVD, regular rate, regular rhythm and No murmurs present (Cardio) RATE: regular rate RHYTHM: regular rhythm GI: COMMON NORMALS: No hepatosplenomegaly present AUSCULTATION: Yes normoactive bowel sounds PALPATION: Yes Tenderness to palpation present (GI) Details: LLQ, No Guarding due to palpation present (GI) and Yes No hepatosplenomegaly present OTHER: For morbidly obese with a large umbilical hernia that is easily reducible Extremity: COMMON NORMALS: normal to inspection, capillary refill normal, no clubbing, cyanosis or edema, no calf tenderness and no pedal edema Neuro: SENSORIUM/ORIENTATION: Yes oriented to person, Yes oriented to place and Yes oriented to time Skin: COMMON NORMALS: no rashes or lesions noted GENERAL SKIN EXAM: no rashes or lesions noted Course Vital Signs: Vital signs: Vital Signs Temperature 101.4 F H 07/15/20 16:37 Pulse Rate 73 07/15/20 22:12 Respiratory Rate 18 07/15/20 22:12 Blood Pressure 119/62 07/15/20 22:12 Pulse Oximetry 64 L 07/15/20 22:12 MDM - Abdominal Pain Lab Data: Labs: Lab Results 07/15/20 07/15/20 07/15/20 Range/Units 16:30 16:34 17:35 WBC 11.0 H (4.0-10.0) 10^3/ uL RBC 3.22 L (4.1-5.3) 10^6/u L Hgb 9.9 L (11.7-16.6) g/dL Hct 31.6 L (42.0-52.0) % MCV 98.1 H (80-94) fL MCH 30.7 (28.0-34.0) pg MCHC 31.3 (30.0-36.0) g/dL RDW 14.3 (12.1-15.1) % Plt Count 220 (130-400) 10^3/c mm MPV 8.7 (7.4-10.4) fL Neut % (Auto) 77.1 % Lymph % (Auto) 8.8 % [place] % (Auto) 13.1 % Eos % (Auto) 0.0 % Baso % (Auto) 0.5 % Neut # (Auto) 8.50 H (1.8-7.7) 10^3/u L Lymph # (Auto) 1.0 (0.8-4.8) 10^3/u L [place] # (Auto) 1.4 H (0.2-0.9) 10^3/u L Eos # (Auto) 0.0 (0.0-0.8) 10^3/u L Baso # (Auto) 0.1 (0.0-0.1) 10^3/u L Nucleated RBC % (a uto) 0 % Nucleated RBCs # 0.0 /100WBC Sodium 134 L (136-145) mmol/L Potassium 4.2 (3.5-5.1) mmol/L Chloride 98 (98-107) mmol/L Carbon Dioxide 26 (22-29) mmol/L Anion Gap 14.2 (5-19) BUN 20 (8-23) mg/dL Creatinine 1.9 H (0.7-1.2) mg/dL GFR Calculation 36.1 L (90-130) mL/min Glucose 77 (65-115) mg/dL Calculated Osmolal ity 279 L (285-295) mOsm/k g Lactic Acid (0.5-2.2) mmol/L Calcium 8.8 (8.5-10.5) mg/dL Total Bilirubin 0.8 (0.15-1.2) mg/dL AST 10 (0-40) U/L ALT 9 (0-41) U/L Alkaline Phosphata se 65 (40-130) IU/L Troponin T Baselin e 59 H (0-15) ng/L Total Protein 7.0 (6.6-8.7) g/dL Albumin 3.9 (3.5-5.2) g/dL Globulin 3.1 (1.3-4.6) g/dL Lipase 12 L (13-60) U/L Urine Color (Yellow) Urine Appearance (CLEAR) Urine pH (5-7) Ur Specific Gravit y (1.005-1.030) Urine Protein (Negative) Urine Glucose (UA) (Normal) Urine Ketones (Negative) Urine Blood (Negative) Urine Nitrate (Negative) Urine Bilirubin (Negative) Urine Urobilinogen (Negative) mg/dL Ur Leukocyte Amanda ase (Negative) Urine RBC (0-2) /hpf Urine WBC (0-5) /hpf Ur Squamous Epith Cells (0-5) /hpf Amorphous Sediment Urine Bacteria (NONE) /hpf 07/15/20 07/15/20 Range/Units 18:35 20:08 WBC (4.0-10.0) 10^3/ uL RBC (4.1-5.3) 10^6/u L Hgb (11.7-16.6) g/dL Hct (42.0-52.0) % MCV (80-94) fL MCH (28.0-34.0) pg MCHC (30.0-36.0) g/dL RDW (12.1-15.1) % Plt Count (130-400) 10^3/c mm MPV (7.4-10.4) fL Neut % (Auto) % Lymph % (Auto) % [place] % (Auto) % Eos % (Auto) % Baso % (Auto) % Neut # (Auto) (1.8-7.7) 10^3/u L Lymph # (Auto) (0.8-4.8) 10^3/u L [place] # (Auto) (0.2-0.9) 10^3/u L Eos # (Auto) (0.0-0.8) 10^3/u L Baso # (Auto) (0.0-0.1) 10^3/u L Nucleated RBC % (a uto) % Nucleated RBCs # /100WBC Sodium (136-145) mmol/L Potassium (3.5-5.1) mmol/L Chloride (98-107) mmol/L Carbon Dioxide (22-29) mmol/L Anion Gap (5-19) BUN (8-23) mg/dL Creatinine (0.7-1.2) mg/dL GFR Calculation (90-130) mL/min Glucose (65-115) mg/dL Calculated Osmolal ity (285-295) mOsm/k g Lactic Acid 0.7 (0.5-2.2) mmol/L Calcium (8.5-10.5) mg/dL Total Bilirubin (0.15-1.2) mg/dL AST (0-40) U/L ALT (0-41) U/L Alkaline Phosphata se (40-130) IU/L Troponin T Baselin e (0-15) ng/L Total Protein (6.6-8.7) g/dL Albumin (3.5-5.2) g/dL Globulin (1.3-4.6) g/dL Lipase (13-60) U/L Urine Color Dark yellow (Yellow) Urine Appearance Cloudy A (CLEAR) Urine pH 5.0 (5-7) Ur Specific Gravit y 1.005 (1.005-1.030) Urine Protein 1+ H (Negative) Urine Glucose (UA) Norm (Normal) Urine Ketones Negative (Negative) Urine Blood 3+ H (Negative) Urine Nitrate Negative (Negative) Urine Bilirubin Neg (Negative) Urine Urobilinogen Norm (Negative) mg/dL Ur Leukocyte Amanda ase Trace H (Negative) Urine RBC 25-40 H (0-2) /hpf Urine WBC 10-15 H (0-5) /hpf Ur Squamous Epith Cells None (0-5) /hpf Amorphous Sediment Not Reportable Urine Bacteria 1+ H (NONE) /hpf Discharge Plan Discharge Patient Disposition: Xfer Other Clinical Impression: Abdominal pain Condition: Stable Referrals: Cezar Fernandez [Primary Care Provider] - Patient Instructions: Abdominal Pain (ED) Coding Level of Care Code ED Extruder Operator Helper for Chg Fwd Documented by User: Michelle Hansen MD 07/15/20 18:47 HPI - Abdominal Pain General: Chief Complaint: Abdominal Pain Stated Complaint: ABDOMINAL PAIN/ NAUSEA Time Seen by Provider: 07/15/20 16:38 PFSH ED PFSH: Social History Smoking and tobacco status: never smoked Course Vital Signs: Vital signs: Vital Signs Temperature 101.4 F H 07/15/20 16:37 Pulse Rate 73 07/15/20 22:12 Respiratory Rate 18 07/15/20 22:12 Blood Pressure 119/62 07/15/20 22:12 Pulse Oximetry 64 L 07/15/20 22:12 MDM - Abdominal Pain MDM Narrative: Medical decision making narrative: Patient presents here with abdominal pain along with a fever. He does have a quite high fever and is quite tender. He does have a history of diverticulitis we will give him IV antibiotics. Patient will not fit on our CT scanner due to his size. I spoke to [facility] as he is fit on their CT scanner before. They are accepting and will transfer there. Patient has been stable while here. Lab Data: Labs: Lab Results 07/15/20 07/15/20 07/15/20 Range/Units 16:30 16:34 17:35 WBC 11.0 H (4.0-10.0) 10^3/ uL RBC 3.22 L (4.1-5.3) 10^6/u L Hgb 9.9 L (11.7-16.6) g/dL Hct 31.6 L (42.0-52.0) % MCV 98.1 H (80-94) fL MCH 30.7 (28.0-34.0) pg MCHC 31.3 (30.0-36.0) g/dL RDW 14.3 (12.1-15.1) % Plt Count 220 (130-400) 10^3/c mm MPV 8.7 (7.4-10.4) fL Neut % (Auto) 77.1 % Lymph % (Auto) 8.8 % [place] % (Auto) 13.1 % Eos % (Auto) 0.0 % Baso % (Auto) 0.5 % Neut # (Auto) 8.50 H (1.8-7.7) 10^3/u L Lymph # (Auto) 1.0 (0.8-4.8) 10^3/u L [place] # (Auto) 1.4 H (0.2-0.9) 10^3/u L Eos # (Auto) 0.0 (0.0-0.8) 10^3/u L Baso # (Auto) 0.1 (0.0-0.1) 10^3/u L Nucleated RBC % (a uto) 0 % Nucleated RBCs # 0.0 /100WBC Sodium 134 L (136-145) mmol/L Potassium 4.2 (3.5-5.1) mmol/L Chloride 98 (98-107) mmol/L Carbon Dioxide 26 (22-29) mmol/L Anion Gap 14.2 (5-19) BUN 20 (8-23) mg/dL Creatinine 1.9 H (0.7-1.2) mg/dL GFR Calculation 36.1 L (90-130) mL/min Glucose 77 (65-115) mg/dL Calculated Osmolal ity 279 L (285-295) mOsm/k g Lactic Acid (0.5-2.2) mmol/L Calcium 8.8 (8.5-10.5) mg/dL Total Bilirubin 0.8 (0.15-1.2) mg/dL AST 10 (0-40) U/L ALT 9 (0-41) U/L Alkaline Phosphata se 65 (40-130) IU/L Troponin T Baselin e 59 H (0-15) ng/L Total Protein 7.0 (6.6-8.7) g/dL Albumin 3.9 (3.5-5.2) g/dL Globulin 3.1 (1.3-4.6) g/dL Lipase 12 L (13-60) U/L Urine Color (Yellow) Urine Appearance (CLEAR) Urine pH (5-7) Ur Specific Gravit y (1.005-1.030) Urine Protein (Negative) Urine Glucose (UA) (Normal) Urine Ketones (Negative) Urine Blood (Negative) Urine Nitrate (Negative) Urine Bilirubin (Negative) Urine Urobilinogen (Negative) mg/dL Ur Leukocyte Amanda ase (Negative) Urine RBC (0-2) /hpf Urine WBC (0-5) /hpf Ur Squamous Epith Cells (0-5) /hpf Amorphous Sediment Urine Bacteria (NONE) /hpf 07/15/20 07/15/20 Range/Units 18:35 20:08 WBC (4.0-10.0) 10^3/ uL RBC (4.1-5.3) 10^6/u L Hgb (11.7-16.6) g/dL Hct (42.0-52.0) % MCV (80-94) fL MCH (28.0-34.0) pg MCHC (30.0-36.0) g/dL RDW (12.1-15.1) % Plt Count (130-400) 10^3/c mm MPV (7.4-10.4) fL Neut % (Auto) % Lymph % (Auto) % [place] % (Auto) % Eos % (Auto) % Baso % (Auto) % Neut # (Auto) (1.8-7.7) 10^3/u L Lymph # (Auto) (0.8-4.8) 10^3/u L [place] # (Auto) (0.2-0.9) 10^3/u L Eos # (Auto) (0.0-0.8) 10^3/u L Baso # (Auto) (0.0-0.1) 10^3/u L Nucleated RBC % (a uto) % Nucleated RBCs # /100WBC Sodium (136-145) mmol/L Potassium (3.5-5.1) mmol/L Chloride (98-107) mmol/L Carbon Dioxide (22-29) mmol/L Anion Gap (5-19) BUN (8-23) mg/dL Creatinine (0.7-1.2) mg/dL GFR Calculation (90-130) mL/min Glucose (65-115) mg/dL Calculated Osmolal ity (285-295) mOsm/k g Lactic Acid 0.7 (0.5-2.2) mmol/L Calcium (8.5-10.5) mg/dL Total Bilirubin (0.15-1.2) mg/dL AST (0-40) U/L ALT (0-41) U/L Alkaline Phosphata se (40-130) IU/L Troponin T Baselin e (0-15) ng/L Total Protein (6.6-8.7) g/dL Albumin (3.5-5.2) g/dL Globulin (1.3-4.6) g/dL Lipase (13-60) U/L Urine Color Dark yellow (Yellow) Urine Appearance Cloudy A (CLEAR) Urine pH 5.0 (5-7) Ur Specific Gravit y 1.005 (1.005-1.030) Urine Protein 1+ H (Negative) Urine Glucose (UA) Norm (Normal) Urine Ketones Negative (Negative) Urine Blood 3+ H (Negative) Urine Nitrate Negative (Negative) Urine Bilirubin Neg (Negative) Urine Urobilinogen Norm (Negative) mg/dL Ur Leukocyte Amanda ase Trace H (Negative) Urine RBC 25-40 H (0-2) /hpf Urine WBC 10-15 H (0-5) /hpf Ur Squamous Epith Cells None (0-5) /hpf Amorphous Sediment Not Reportable Urine Bacteria 1+ H (NONE) /hpf Discharge Plan Discharge Patient Disposition: Xfer Other Clinical Impression: Abdominal pain Condition: Stable Referrals: Cezar Fernandez [Primary Care Provider] - Patient Instructions: Abdominal Pain (ED) Coding Level of Care Code ED Extruder Operator Helper for Deisi Vogt
[2020-07-15 17:18] LABS: Alanine Aminotransferase 9 U/L (0-41); Albumin Level 3.9 g/dL (3.5-5.2); Alkaline Phosphatase 65 IU/L (40-130); Anion Gap 14.2 (5-19); Aspartate Amino Transferase 10 U/L (0-40); Blood Urea Nitrogen 20 mg/dL (8-23); Calcium 8.8 mg/dL (8.5-10.5); Carbon Dioxide 26 mmol/L (22-29); Chloride 98 mmol/L (98-107); Globulin 3.1 g/dL (1.3-4.6); Glomerular Filtration Rate 36.1 mL/min (90-130); Glucose 77 mg/dL (65-115); Lipase 12 U/L (13-60); Osmolality Calculated 279 mOsm/kg (285-295); Potassium 4.2 mmol/L (3.5-5.1); Sodium 134 mmol/L (136-145); Total Bilirubin 0.8 mg/dL (0.15-1.2)
[2020-07-15 18:09] LABS: Troponin(5th) Baseline 59 ng/L (0-15)
--- NOTE | 2020-07-15 18:28 | PC.NURSE ---
ekg done at 1826 and shown to ER doctor
[2020-07-15] MEDS: vancomycin 1,000 MG in sodium chloride 0.9% 250 ML 250 MG IV (18:47)
[2020-07-15] MEDS: piperacillin-tazobactam 3.375 GM in sodium chloride 0.9% (plus) 50 ML IV (18:47)
[2020-07-15] MEDS: HYDROmorphone 1 mg/mL INJ 1 mL IVP (18:47)
--- NOTE | 2020-07-15 18:48 | ECG_ITS ---
[facility] Test Date: 2020-07-15 Pat Name: Kenney Olea Department: Room: Gender: Male Business Objects Report Developer: : 1955 Requested By: Juan Diego Joseph Order Number: [id number] Shelley MD: Lila Gerber M.D. Measurements Intervals [place] Rate: 69 P: 27 SC: 160 QRS: 38 QRSD: 106 T: 63 QT: 343 QTc: 369 Interpretive Statements SINUS RHYTHM NONSPECIFIC T-WAVE ABNORMALITY Compared to ECG 07/15/2020 18:24:39 Ventricular premature complex(es) no longer present T-wave abnormality still present Electronically Signed On 07-15-2020 21:47:21 SHORT STORY WRITER by Lila Gerber M.D. [id number]
[2020-07-15 19:08] LABS: Lactic Sepsis W/Reflex 0.7 mmol/L (0.5-2.2)
[2020-07-15 20:43] LABS: Add Urine Microscopic? YES; Bilirubin Urine Neg (Negative); Blood Urine 3+ (Negative); Glucose Urine UA Norm (Normal); Ketones Urine Negative (Negative); Leukocyte Esterase Urine Trace (Negative); Nitrate Urine Negative (Negative); Protein Urine 1+ (Negative); RBC Urine 25-40 /hpf (0-2); Specific Gravity, Urine 1.005 (1.005-1.030); Urine Appearance Cloudy (CLEAR); Urine Color Dark Yellow (Yellow); Urobilinogen Urine Norm (Negative)
[2020-07-15 20:44] LABS: Add Urine Culture? Yes; Bacteria Urine 1+ /hpf
--- NOTE | 2020-07-15 21:17 | PC.NURSE ---
EKG done at 2114 and shown to ER doctor
[2020-07-15] MEDS: morphine 4 mg/mL SDV 1 mL IVP (22:09)
--- NOTE | 2020-07-15 22:10 | PC.NURSE ---
[facility] just left facility with patient en route to [facility] in [place]
== END 2020-07-15 22:12 | disposition other institution (70) ==
PROVIDERS: Family Medicine; Emergency Provider Emergency Medicine; PCP Physician Assistant Medical
DX: R10.9 Unspecified abdominal pain (principal)
CPT/HCPCS: 12345; 36415; 80053; 81001; 83605; 83690; 84484; 85025; 87040; 87086; 93005; 96365; 96367; 96375; 99283; 99285; J1170; J2270; J2543; J3370; J7050

== ENCOUNTER 2020-10-31 14:46 | Inpatient (IN) | payer MEDICARE, MEDICAID, SELFPAY ==
[2020-10-31] VITALS (10 sets, daily range): BP systolic 100–172; BP diastolic 54–74; PULSE 62–94; RESP 18–20; TEMP 37.1–39.1; O2SAT 93–98; BMI 67.3
--- NOTE | 2020-10-31 14:58 | XRR_ITS ---
PROCEDURE INFORMATION: Exam: XR Chest Exam date and time: 10/31/2020 3:31 PM Age: 64 years old Clinical indication: Patient HX: PT states cough since 2018 with HX of pneumonia, PT is 76 500+lbs; Additional info: Dyspnea/cough TECHNIQUE: Imaging protocol: XR of the chest. Views: 1 view. Total images: 2 COMPARISON: CR XR chest 1V portable [id number] 11/02/2019 11:25 PM FINDINGS: Lungs: No definitive evidence of active interstitial or alveolar airspace disease. Pleural spaces: Unremarkable. No pleural effusion. No pneumothorax. Heart/Mediastinum: Cardiac structures and configuration with cardiac size upper limits of normal and arteriosclerosis. Bones/joints: Mild scoliotic curvature. Other findings: Obesity. XR/XR chest 1V portable [id number] IMPRESSION: Nonacute.
--- NOTE | 2020-10-31 14:58 | ECG_ITS ---
[facility] Test Date: 2020-10-31 Pat Name: Kenney Olea Department: Room: Gender: Male Lna: : 1955 Requested By: Juan Diego Joseph Order Number: [id number] Reading MD: INGRID WEINSTEIN Measurements Intervals [place] Rate: 57 P: -26 IA: 205 QRS: 23 QRSD: 105 T: 37 QT: 471 QTc: 461 Interpretive Statements SINUS BRADYCARDIA LOW QRS VOLTAGE IN PRECORDIAL LEADS [QRS DEFLECTION < 1.0 mV IN CHEST LEADS] PROLONGED QT INTERVAL Compared to ECG 07/15/2020 21:14:29 Low QRS voltage now present Prolonged QT interval now present Sinus rhythm no longer present T-wave abnormality no longer present Electronically Signed On 11-01-2020 22:25:33 CDT by INGRID WEINSTEIN [email or web address] [id number]
[2020-10-31] MEDS: sodium chloride 0.9% 500 ML IV (15:21)
[2020-10-31 15:27] LABS: Basophils # 0.1 10^3/uL (0.0-0.1); Basophils % 0.3 %; Eosinophils % 0.1 %; Hematocrit 30.4 % (42.0-52.0); Hemoglobin 9.4 g/dL (11.7-16.6); Lymphocytes # 0.9 10^3/uL (0.8-4.8); Lymphocytes % 5.9 %; Mean Corpuscular HGB Conc 30.9 g/dL (30.0-36.0); Mean Corpuscular Hemoglobin 30.6 pg (28.0-34.0); Mean Platelet Volume 8.8 fL (7.4-10.4); Monocytes # 1.2 10^3/uL (0.2-0.9); Monocytes % 7.6 %; Neutrophils # 12.87 10^3/uL (1.8-7.7); Neutrophils % 84.8 %; Nucleated Red Blood Cells % 0 %; Platelet Count 239 10^3/cmm (130-400); Red Blood Count 3.07 10^6/uL (4.1-5.3); Red Cell Distribution Width 14.8 % (12.1-15.1); White Blood Count 15.2 10^3/uL (4.0-10.0)
[2020-10-31 15:44] LABS: Alanine Aminotransferase 16 U/L (0-41); Albumin Level 3.7 g/dL (3.5-5.2); Alkaline Phosphatase 48 IU/L (40-130); Anion Gap 17.3 (5-19); Aspartate Amino Transferase 17 U/L (0-40); Blood Urea Nitrogen 27 mg/dL (8-23); Calcium 8.3 mg/dL (8.5-10.5); Carbon Dioxide 23 mmol/L (22-29); Chloride 101 mmol/L (98-107); Globulin 2.7 g/dL (1.3-4.6); Glomerular Filtration Rate 36.1 mL/min (90-130); Glucose 104 mg/dL (65-115); Magnesium 1.9 mg/dL (1.7-2.3); Osmolality Calculated 289 mOsm/kg (285-295); Potassium 4.3 mmol/L (3.5-5.1); Sodium 137 mmol/L (136-145); Total Bilirubin 0.5 mg/dL (0.15-1.2); Total Protein 6.4 g/dL (6.6-8.7)
[2020-10-31 15:51] LABS: Troponin(5th) Baseline 158 ng/L (0-15)
--- NOTE | 2020-10-31 15:56 | W.ED.WEAKNES ---
HPI - Weakness General: Chief complaint: Weakness Stated complaint: WEAKNESS Time Seen by Provider: 10/31/20 14:57 History of Present Illness: HPI Narrative: 64-year-old male presents to the emergency room with complaint of not feeling well weakness. He was recently discharged from [facility]. he fell last night he has been very weak has had is not had any abdominal discomfort. No excessive shortness of breath. He is now but able to get up and walk for the last few days. Patient bit his super morbid obese with a BMI of 67.4. MD Complaint: generalized weakness Onset (ago): day(s) Duration: constant Quality: aching Relieving factors: none Exacerbating factors: none and movement Associated symptoms: Reports decreased appetite, fever(s), nausea and short of breath; Denies chest pain, chills, confusion, melena, diaphoresis, dysuria, easy bruising, headache(s), myalgias, rash, syncope or vomiting Review of Systems Const: Reports: fever(s); Denies: chills or diaphoresis ENMT: Denies: throat pain, ear or mastoid pain, nasal discharge or nasal congestion Card: Denies: chest pain or syncope Resp: Denies: dyspnea, productive cough or non-productive cough GI: Reports: nausea; Denies: vomiting or melena : Denies: dysuria Skin/Breast: Denies: rash or pruritus Neuro: Denies: headache(s) or confusion Leonardo/Lymph: Denies: easy bruising PFS ED PFSH: Medical History Fall Morbid obesity Social History Smoking and tobacco status: never smoked Physical Exam Const: COMMON NORMALS: no acute distress GENERAL APPEARANCE: cooperative and comfortable ORIENTATION/CONSCIOUSNESS: Yes awake, Yes oriented to person, Yes oriented to place and Yes oriented to time HENMT: COMMON NORMALS: normocephalic, atraumatic and hearing grossly normal bilaterally HEAD & SCALP: normocephalic and atraumatic Neck/C-Spine: COMMON NORMALS: no JVD Resp: COMMON NORMALS: normal respiratory effort, No retractions, No use of accessory muscles and clear to auscultation bilaterally AUSCULTATION: clear to auscultation bilaterally Cardio: COMMON NORMALS: no JVD, regular rate, regular rhythm and No murmurs present (Cardio) RATE: regular rate RHYTHM: regular rhythm GI: COMMON NORMALS: Soft to palpation and No hepatosplenomegaly present AUSCULTATION: Yes normoactive bowel sounds PALPATION: Yes Soft to palpation, Yes Tenderness to palpation present (GI) Details: LLQ, No Guarding due to palpation present (GI) and Yes No hepatosplenomegaly present Neuro: SENSORIUM/ORIENTATION: Yes oriented to person, Yes oriented to place and Yes oriented to time Skin: COMMON NORMALS: no rashes or lesions noted GENERAL SKIN EXAM: no rashes or lesions noted Course Vital Signs: Vital signs: Vital Signs Temperature 97.4 F L 11/02/20 18:49 Pulse Rate 59 L 11/02/20 18:49 Respiratory Rate 17 11/02/20 18:49 Blood Pressure 128/72 11/02/20 18:49 Pulse Oximetry 95 11/02/20 18:49 MDM - Weakness MDM Narrative: Medical decision making narrative: Presumed diagnosis. We cannot do imaging because of his body habitus. Discussed with Dr. Vega will admit if he worsens can consider transferring to [place]. Patient is aware of the plan is okay with proceeding. Lab Data: Labs: Lab Results 10/31/20 10/31/20 10/31/20 Range/Units 13:59 13:59 13:59 WBC 15.2 H (4.0-10.0) 10^3/ uL RBC 3.07 L (4.1-5.3) 10^6/u L Hgb 9.4 L (11.7-16.6) g/dL Hct 30.4 L (42.0-52.0) % MCV 99.0 H (80-94) fL MCH 30.6 (28.0-34.0) pg MCHC 30.9 (30.0-36.0) g/dL RDW 14.8 (12.1-15.1) % Plt Count 239 (130-400) 10^3/c mm MPV 8.8 (7.4-10.4) fL Neut % (Auto) 84.8 % Lymph % (Auto) 5.9 % [place] % (Auto) 7.6 % Eos % (Auto) 0.1 % Baso % (Auto) 0.3 % Neut # (Auto) 12.87 H (1.8-7.7) 10^3/u L Lymph # (Auto) 0.9 (0.8-4.8) 10^3/u L [place] # (Auto) 1.2 H (0.2-0.9) 10^3/u L Eos # (Auto) 0.0 (0.0-0.8) 10^3/u L Baso # (Auto) 0.1 (0.0-0.1) 10^3/u L Nucleated RBC % (a uto) 0 % Nucleated RBCs # 0.0 /100WBC Sodium 137 (136-145) mmol/L Potassium 4.3 (3.5-5.1) mmol/L Chloride 101 (98-107) mmol/L Carbon Dioxide 23 (22-29) mmol/L Anion Gap 17.3 (5-19) BUN 27 H (8-23) mg/dL Creatinine 1.9 H (0.7-1.2) mg/dL GFR Calculation 36.1 L (90-130) mL/min Glucose 104 (65-115) mg/dL Calculated Osmolal ity 289 (285-295) mOsm/k g Calcium 8.3 L (8.5-10.5) mg/dL Magnesium 1.9 (1.7-2.3) mg/dL Total Bilirubin 0.5 (0.15-1.2) mg/dL AST 17 (0-40) U/L ALT 16 (0-41) U/L Alkaline Phosphata se 48 (40-130) IU/L Troponin T Baselin e 158 H* (0-15) ng/L Troponin T 120 Min [place] (0-15) ng/L Delta Troponin T (0-10) ABS# Total Protein 6.4 L (6.6-8.7) g/dL Albumin 3.7 (3.5-5.2) g/dL Globulin 2.7 (1.3-4.6) g/dL Urine Color (Yellow) Urine Appearance (CLEAR) Urine pH (5-7) Ur Specific Gravit y (1.005-1.030) Urine Protein (Negative) Urine Glucose (UA) (Normal) Urine Ketones (Negative) Urine Blood (Negative) Urine Nitrate (Negative) Urine Bilirubin (Negative) Urine Urobilinogen (Negative) mg/dL Ur Leukocyte Amanda ase (Negative) Urine RBC (0-2) /hpf Urine WBC (0-5) /hpf Ur Squamous Epith Cells (0-5) /hpf Amorphous Sediment /hpf Urine Bacteria (NONE) /hpf 10/31/20 10/31/20 Range/Units 15:16 15:51 WBC (4.0-10.0) 10^3/ uL RBC (4.1-5.3) 10^6/u L Hgb (11.7-16.6) g/dL Hct (42.0-52.0) % MCV (80-94) fL MCH (28.0-34.0) pg MCHC (30.0-36.0) g/dL RDW (12.1-15.1) % Plt Count (130-400) 10^3/c mm MPV (7.4-10.4) fL Neut % (Auto) % Lymph % (Auto) % [place] % (Auto) % Eos % (Auto) % Baso % (Auto) % Neut # (Auto) (1.8-7.7) 10^3/u L Lymph # (Auto) (0.8-4.8) 10^3/u L [place] # (Auto) (0.2-0.9) 10^3/u L Eos # (Auto) (0.0-0.8) 10^3/u L Baso # (Auto) (0.0-0.1) 10^3/u L Nucleated RBC % (a uto) % Nucleated RBCs # /100WBC Sodium (136-145) mmol/L Potassium (3.5-5.1) mmol/L Chloride (98-107) mmol/L Carbon Dioxide (22-29) mmol/L Anion Gap (5-19) BUN (8-23) mg/dL Creatinine (0.7-1.2) mg/dL GFR Calculation (90-130) mL/min Glucose (65-115) mg/dL Calculated Osmolal ity (285-295) mOsm/k g Calcium (8.5-10.5) mg/dL Magnesium (1.7-2.3) mg/dL Total Bilirubin (0.15-1.2) mg/dL AST (0-40) U/L ALT (0-41) U/L Alkaline Phosphata se (40-130) IU/L Troponin T Baselin e (0-15) ng/L Troponin T 120 Min [place] 142.3 H (0-15) ng/L Delta Troponin T -15.7 L (0-10) ABS# Total Protein (6.6-8.7) g/dL Albumin (3.5-5.2) g/dL Globulin (1.3-4.6) g/dL Urine Color Dark yellow (Yellow) Urine Appearance Sl hazy (CLEAR) Urine pH 5 (5-7) Ur Specific Gravit y 1.015 (1.005-1.030) Urine Protein Trace (Negative) Urine Glucose (UA) Norm (Normal) Urine Ketones Negative (Negative) Urine Blood 3+ H (Negative) Urine Nitrate Negative (Negative) Urine Bilirubin Neg (Negative) Urine Urobilinogen Norm (Negative) mg/dL Ur Leukocyte Amanda ase Negative (Negative) Urine RBC 0-4 H (0-2) /hpf Urine WBC 5-10 H (0-5) /hpf Ur Squamous Epith Cells None (0-5) /hpf Amorphous Sediment 1+ /hpf Urine Bacteria 1+ H (NONE) /hpf Discharge Plan Discharge Admit Provider: Moira Vega Condition: Stable Discharge Orders: Discharge Order (Routine); Ordered 11/02/20 Ordered By: Moira Vega Coding Level of Care Code ED Customer Service Coordinator [facility]
[2020-10-31 16:06] LABS: Add Urine Microscopic? YES; Bilirubin Urine Neg (Negative); Blood Urine 3+ (Negative); Glucose Urine UA Norm (Normal); Ketones Urine Negative (Negative); Leukocyte Esterase Urine Negative (Negative); Nitrate Urine Negative (Negative); Protein Urine Trace (Negative); Specific Gravity, Urine 1.015 (1.005-1.030); Urine Appearance SL Hazy (CLEAR); Urine Color Dark Yellow (Yellow); Urobilinogen Urine Norm (Negative); pH Urine 5 (5-7)
[2020-10-31 16:08] LABS: Add Urine Culture? No; Amorphous Sediment Urine 1+ /hpf; Bacteria Urine 1+ /hpf; RBC Urine 0-4 /hpf (0-2)
[2020-10-31 16:56] LABS: Troponin 5 2HR Delta -15.7 ABS# (0-10)
[2020-10-31 16:57] LABS: Troponin 5 2HR 142.3 ng/L (0-15)
--- NOTE | 2020-10-31 16:58 | ECG_ITS ---
[facility] Test Date: 2020-10-31 Pat Name: Kenney Olea Department: Room: Gender: Male Certified Juvenile Probation Officer: : 1955 Requested By: Juan Diego Joseph Order Number: [id number] Reading MD: INGRID WEINSTEIN Measurements Intervals [place] Rate: 62 P: 32 NC: 207 QRS: 36 QRSD: 104 T: 48 QT: 449 QTc: 458 Interpretive Statements SINUS RHYTHM Compared to ECG 10/31/2020 15:31:50 Sinus bradycardia no longer present Prolonged QT interval no longer present Electronically Signed On 11-01-2020 22:28:36 CDT by INGRID WEINSTEIN [id number]
[2020-10-31] MEDS: piperacillin-tazobactam 3.375 GM in sodium chloride 0.9% (plus) 50 ML IV (17:07)
[2020-10-31] MEDS: ondansetron 2 mg/ML SDV 2 mL 4 MG IVP (19:43)
[2020-10-31] MEDS: morphine 4 mg/mL SDV 1 mL IVP (19:44)
--- NOTE | 2020-10-31 20:40 | PM.HP ---
Providers/Chief Complaint Admitting Physician: Moira Vega MD Primary Care Provider: Cezar Fernandez Chief Complaint: WEAKNESS History of Present Illness Kenney Olea is a 64 year old male with a past medical history as outlined below who presented to the ER with chief complaints of generalized feeling of being unwell over the last few days. He sustained a recent fall at home while attempting to get out of bed. His friend brought him to ER when he did was unable to ambulate for the last 3 to 4 days. Patient had been experiencing chills at home. T-max in the ER noted to be 99.6. Mild abdominal discomfort is reported. No diarrhea nausea or vomiting. White blood cell count noted to be at 15. No infiltrates on CXR. Unable to get CT abdomen due to obesity/high BMI. Review of Systems General: Reports: 10 or more systems reviewed and unremarkable except in HPI and below Const: Denies: fever(s), chills or body aches Eyes: Denies: change in vision, blurry vision or photophobia ENMT: Reports: hoarseness; Denies: throat pain, enlarged tonsils, odynophagia or nasal congestion Card: Denies: chest pain, palpitations, irregular heart rhythm, edema, swelling of feet/ankles, lightheadedness, pre-syncope, dyspnea on exertion or orthopnea Resp: Denies: dyspnea, productive cough, non-productive cough, wheezing, stridor, pain on inspiration, change in phlegm color, hemoptysis or chest congestion GI: Denies: abdominal pain, nausea, vomiting, hematemesis, coffee ground emesis, dysphagia, heartburn, diarrhea, constipation, GI cramping, change in stool character, hematochezia or melena : Denies: flank pain, dysuria, urinary frequency, urinary urgency, urinary hesitancy or hematuria Musc: Denies: neck pain, back pain, extremity pain, joint swelling, joint warmth or deformity Neuro: Denies: headache(s), numbness in extremities, weakness in extremities, sensory changes, difficulty walking, frequent falls, dizziness, vertigo, behavioral changes, Slurred speech present or seizure-like activity Psych: Denies: anxiety, depression, suicidal ideation or homicidal ideation Endo: Denies: polyuria, polydipsia, tired all the time, cold intolerance or hot flashes Leonardo/Lymph: Denies: easy bruising or easy bleeding Medications/Allergies Home Medications Medication Instructions Recorded Confirmed Last Taken Type amiodarone 200 mg PO BID@0600,1700 07/15/20 10/31/20 10/31/20 History apixaban [Eliquis] 5 mg PO BID@0600,1700 07/15/20 10/31/20 10/31/20 History gabapentin 900 mg PO BEDTIME@2100 07/15/20 10/31/20 10/30/20 History insulin glargine [Lantus Solostar 70 unit SUBCUT BID@0600,1700 07/15/20 10/31/20 10/31/20 History U-100 Insulin] insulin lispro See Rx Instructions .ROUTE .COMPLEX 07/15/20 10/31/20 10/31/20 History levothyroxine 25 mcg PO DAILY@0600 07/15/20 10/31/20 10/31/20 History metoprolol tartrate 25 mg PO BID@0600,1700 07/15/20 10/31/20 10/31/20 History potassium chloride 10 meq PO BID@0600,1700 07/15/20 10/31/20 10/31/20 History Allergies Allergy/AdvReac Type Severity Reaction Status Date / Time aspirin Allergy Unknown Verified 10/31/20 14:53 Vicodin Allergy Unknown Unknown Uncoded 10/31/20 14:53 Victoza Allergy Unknown Unknown Uncoded 10/31/20 14:53 PFSH Acute PFSH: Social History Smoking and tobacco status: never smoked Vitals/I&O/Wt Last Vital Signs Temp 99.6 F 10/31/20 19:23 Pulse 85 10/31/20 19:23 Resp 18 10/31/20 19:44 BP 125/56 10/31/20 19:23 Pulse Ox 96 10/31/20 19:23 10/31/20 10/31/20 10/31/20 06:59 14:59 22:59 Intake Total 550 / 550 Balance 550 / 550 Weight last 48 hrs Weight 238.136 kg Physical Exam Narrative: EXAM NARRATIVE: General: No acute distress, AO x3, morbid obesity HEENT: PERRLA, pupils bilaterally equal and reactive, pallors not present Chest: Normal vesicular breath sounds, no added sounds, equal good air entry bilaterally CVS: S1-S2 regular, no murmurs, no tachycardia, no gallops, no rubs Abdomen: Soft, nontender, no organomegaly, bowel sounds present Neuro: No focal deficits, no facial deformity, AO x3, power 5/5 in all limbs Extremities: B/L LE swelling with superficial ulcerations Data : 11/01/20 05:25 11/01/20 05:25 Micro: Microbiology 10/31/20 17:15 Blood Culture - Preliminary Blood SPECIMEN COLLECTED 10/31/20 17:06 Blood Culture - Preliminary Blood SPECIMEN COLLECTED Attestation for Other Data: I personally reviewed and interpreted the following: Other data: Laboratory Results WBC 9.8 10^3/uL (4.0-10.0) 11/01/20 05:25 RBC 2.81 10^6/uL (4.1-5.3) L 11/01/20 05:25 Hgb 8.5 g/dL (11.7-16.6) L 11/01/20 05:25 Hct 28.9 % (42.0-52.0) L 11/01/20 05:25 MCV 102.8 fL (80-94) H 11/01/20 05:25 MCH 30.2 pg (28.0-34.0) 11/01/20 05:25 MCHC 29.4 g/dL (30.0-36.0) L 11/01/20 05:25 RDW 14.8 % (12.1-15.1) 11/01/20 05:25 Plt Count 210 10^3/cmm (130-400) 11/01/20 05:25 MPV 8.6 fL (7.4-10.4) 11/01/20 05:25 Neut % (Auto) 72.0 % 11/01/20 05:25 Lymph % (Auto) 12.8 % 11/01/20 05:25 [place] % (Auto) 12.5 % 11/01/20 05:25 Eos % (Auto) 0.9 % 11/01/20 05:25 Baso % (Auto) 0.5 % 11/01/20 05:25 Neut # (Auto) 7.05 10^3/uL (1.8-7.7) 11/01/20 05:25 Lymph # (Auto) 1.3 10^3/uL (0.8-4.8) 11/01/20 05:25 [place] # (Auto) 1.2 10^3/uL (0.2-0.9) H 11/01/20 05:25 Eos # (Auto) 0.1 10^3/uL (0.0-0.8) 11/01/20 05:25 Baso # (Auto) 0.1 10^3/uL (0.0-0.1) 11/01/20 05:25 Nucleated RBC % (auto) 0 % 11/01/20 05:25 Nucleated RBCs # 0.0 /100WBC 11/01/20 05:25 Sodium 139 mmol/L (136-145) 11/01/20 05:25 Potassium 4.4 mmol/L (3.5-5.1) 11/01/20 05:25 Chloride 106 mmol/L (98-107) 11/01/20 05:25 Carbon Dioxide 24 mmol/L (22-29) 11/01/20 05:25 Anion Gap 13.4 (5-19) 11/01/20 05:25 BUN 26 mg/dL (8-23) H 11/01/20 05:25 Creatinine 1.9 mg/dL (0.7-1.2) H 11/01/20 05:25 GFR Calculation 36.1 mL/min (90-130) L 11/01/20 05:25 Glucose 72 mg/dL (65-115) 11/01/20 05:25 POC Glucose 99 mg/dL (70-110) 11/01/20 11:17 Calculated Osmolality 291 mOsm/kg (285-295) 11/01/20 05:25 Calcium 8.3 mg/dL (8.5-10.5) L 11/01/20 05:25 Magnesium 1.9 mg/dL (1.7-2.3) 10/31/20 13:59 Total Bilirubin 0.4 mg/dL (0.15-1.2) 11/01/20 05:25 AST 19 U/L (0-40) 11/01/20 05:25 ALT 15 U/L (0-41) 11/01/20 05:25 Alkaline Phosphatase 42 IU/L (40-130) 11/01/20 05:25 Troponin T Baseline 158 ng/L (0-15) H* 10/31/20 13:59 Troponin T 120 Minute 142.3 ng/L (0-15) H 10/31/20 15:51 Delta Troponin T -15.7 ABS# (0-10) L 10/31/20 15:51 Troponin T Hi Sens 6Hr 128.0 ng/L (0-15) H 10/31/20 19:35 Troponin T Hi Sens 6Hr Delta -30.0 ng/L (0-12) L 10/31/20 19:35 Total Protein 6.8 g/dL (6.6-8.7) 11/01/20 05:25 Albumin 3.5 g/dL (3.5-5.2) 11/01/20 05:25 Globulin 3.3 g/dL (1.3-4.6) 11/01/20 05:25 Urine Color Dark yellow (Yellow) 10/31/20 15:16 Urine Appearance Sl hazy (CLEAR) 10/31/20 15:16 Urine pH 5 (5-7) 10/31/20 15:16 Ur Specific [place] 1.015 (1.005-1.030) 10/31/20 15:16 Urine Protein Trace (Negative) 10/31/20 15:16 Urine Glucose (UA) Norm (Normal) 10/31/20 15:16 Urine Ketones Negative (Negative) 10/31/20 15:16 Urine Blood 3+ (Negative) H 10/31/20 15:16 Urine Nitrate Negative (Negative) 10/31/20 15:16 Urine Bilirubin Neg (Negative) 10/31/20 15:16 Urine Urobilinogen Norm mg/dL (Negative) 10/31/20 15:16 Ur Leukocyte Esterase Negative (Negative) 10/31/20 15:16 Urine RBC 0-4 /hpf (0-2) H 10/31/20 15:16 Urine WBC 5-10 /hpf (0-5) H 10/31/20 15:16 Ur Squamous Epith Cells None /hpf (0-5) 10/31/20 15:16 Amorphous Sediment 1+ /hpf 10/31/20 15:16 Urine Bacteria 1+ /hpf (NONE) H 10/31/20 15:16 Impressions Chest X-Ray 10/31/20 14:58 IMPRESSION: Nonacute. A&P Assessment and plan (1) Fever: Source under evaluation Unclear localizing source, exam limited by obesity Abdominal exam benign, midlin eumbilical hernia , no signs of strangulation, past h/o diverticlutis which may be the cause check blood culture LE wounds appear stable UA with increased WBC, negative nitrite and LA, check urine culture Empiric Zosyn while undergoing work up Status: Acute (2) Generalized weakness: encourage ambulation, OOB to chair No acute fractures Status: Acute (3) Fall: Status: Acute (4) Morbid obesity: Status: Acute Attestations Medical Necessity Statement*: >2midnight anticipated for evaluation of fever, need for iv abx Coding Level of Care Code Acute Podiatry Doctor for [facility] Diagnoses Fever R50.9 Generalized weakness R53.1 Fall W19.XXXA Morbid obesity E66.01
--- NOTE | 2020-10-31 20:58 | ECG_ITS ---
[facility] ED Test Date: 2020-10-31 Pat Name: Kenney Olea Department: Room: 258 Gender: Male Owner Manager: : 1955 Requested By: Juan Diego Joseph Order Number: [id number] [place] MD: Lila Gerber M.D. Measurements Intervals [place] Rate: 69 P: 1 NE: 156 QRS: 34 QRSD: 102 T: 48 QT: 407 QTc: 438 Interpretive Statements SINUS RHYTHM Compared to ECG 10/31/2020 16:48:18 No significant changes Electronically Signed On 11-08-2020 12:28:49 CDT by Lila Gerber M.D. [id number]
[2020-10-31] MEDS: acetaminophen 325 mg Tablet 650 MG PO (21:10)
[2020-10-31] MEDS: enoxaparin 40 mg/0.4 mL Syringe SUBCUT (21:13)
--- NOTE | 2020-10-31 21:17 | PC.NURSE ---
Wounds Patient has lymphedema wraps to bilateral lower extremities, reports wounds on both shins. Patient does not want wraps removed so this nurse was unable to assess wounds at this time.
[2020-11-01] MEDS: piperacillin-tazobactam 3.375 GM in sodium chloride 0.9% (plus) 50 ML IV ×3 (00:25→16:21)
[2020-11-01 03:31] VITALS: BP 126/64; PULSE 55; RESP 18; TEMP 36.5; O2SAT 94
--- NOTE | 2020-11-01 05:17 | PC.NURSE ---
Shift Summary Obtained [facility] for pt. Pt states this bed if more comfortable. Spiked fever of 102.3 during the night, tylenol given, fever down to 97.7. Complained of nausea, zofran given. Morphine given for complaint of pain. Lymphedema wraps baliteral on legs. Patient states he has a wound on each bur[place] but was not willing to allow this nurse to remove wraps.
[2020-11-01 06:17] LABS: Basophils # 0.1 10^3/uL (0.0-0.1); Basophils % 0.5 %; Eosinophils # 0.1 10^3/uL (0.0-0.8); Eosinophils % 0.9 %; Hematocrit 28.9 % (42.0-52.0); Hemoglobin 8.5 g/dL (11.7-16.6); Lymphocytes # 1.3 10^3/uL (0.8-4.8); Lymphocytes % 12.8 %; Mean Corpuscular HGB Conc 29.4 g/dL (30.0-36.0); Mean Corpuscular Hemoglobin 30.2 pg (28.0-34.0); Mean Corpuscular Volume 102.8 fL (80-94); Mean Platelet Volume 8.6 fL (7.4-10.4); Monocytes # 1.2 10^3/uL (0.2-0.9); Monocytes % 12.5 %; Neutrophils # 7.05 10^3/uL (1.8-7.7); Nucleated Red Blood Cells % 0 %; Platelet Count 210 10^3/cmm (130-400); Red Blood Count 2.81 10^6/uL (4.1-5.3); Red Cell Distribution Width 14.8 % (12.1-15.1); White Blood Count 9.8 10^3/uL (4.0-10.0)
[2020-11-01 06:45] LABS: Alanine Aminotransferase 15 U/L (0-41); Albumin Level 3.5 g/dL (3.5-5.2); Alkaline Phosphatase 42 IU/L (40-130); Anion Gap 13.4 (5-19); Aspartate Amino Transferase 19 U/L (0-40); Blood Urea Nitrogen 26 mg/dL (8-23); Calcium 8.3 mg/dL (8.5-10.5); Carbon Dioxide 24 mmol/L (22-29); Chloride 106 mmol/L (98-107); Globulin 3.3 g/dL (1.3-4.6); Glomerular Filtration Rate 36.1 mL/min (90-130); Glucose 72 mg/dL (65-115); Osmolality Calculated 291 mOsm/kg (285-295); Potassium 4.4 mmol/L (3.5-5.1); Sodium 139 mmol/L (136-145); Total Bilirubin 0.4 mg/dL (0.15-1.2); Total Protein 6.8 g/dL (6.6-8.7)
[2020-11-01 08:00] VITALS: BP 128/69; PULSE 53; RESP 17; TEMP 36.9; O2SAT 95
--- NOTE | 2020-11-01 08:06 | PC.NURSE ---
Addendum entered by Carmita Chavez 11/03/20 13:33: PATIENT DISCHARGED CALLED October AT 13:30 CONFORMATION [id number] Original Note: BARIATRIC BED ORDERED BY THIS NURSE ON 10-31-20. CONFIRMATION NUMBER [id number]. BED DELIVERED.
--- NOTE | 2020-11-01 08:22 | PC.NURSE ---
Patient sitting up in bed, talking on phone, reports a headache and requesting Tylenol for pain, denies further needs, discussed plan of care and discussed lymphadema wraps to be changed on Monday and refuses to let nursing staff remove them before that time.
[2020-11-01] MEDS: acetaminophen 325 mg Tablet 650 MG PO (09:27)
[2020-11-01 11:21] LABS: Glucose Point of Care 99 mg/dL (70-110)
[2020-11-01 11:49] VITALS: BP 115/63; PULSE 54; RESP 17; TEMP 36.7; O2SAT 96
--- NOTE | 2020-11-01 14:35 | PC.NURSE ---
Assisted up to bariatric chair via walker, patient ambulated well, tolerated well, denies pain or needs, call light in reach.
[2020-11-01 16:00] VITALS: BP 124/66; PULSE 52; RESP 17; TEMP 36.9; O2SAT 98
--- NOTE | 2020-11-01 17:56 | PM.PN ---
Subjective Subjective: Interval history: Tmax 102F last night, leukocytosis resolved, no new interval complaints , hungry, wishes to advance diet Medications: Reviewed: Yes Vitals/I&O/Wt Last Vital Signs Temp 98.5 F 11/01/20 16:00 Pulse 52 L 11/01/20 16:00 Resp 17 11/01/20 16:00 BP 124/66 11/01/20 16:00 Pulse Ox 98 11/01/20 16:00 11/01/20 11/01/20 11/01/20 06:59 14:59 22:59 Intake Total 42.083 / 592.083 490 / 490 Output Total 500 / 1000 700 / 700 Balance -457.917 / -407.917 -210 / -210 Weight last 48 hrs Weight 238.136 kg Physical Exam Narrative: EXAM NARRATIVE: General: No acute distress, AO x3, morbid obesity HEENT: PERRLA, pupils bilaterally equal and reactive, pallors not present Chest: Normal vesicular breath sounds, no added sounds, equal good air entry bilaterally CVS: S1-S2 regular, no murmurs, no tachycardia, no gallops, no rubs Abdomen: Soft, nontender, no organomegaly, bowel sounds present Neuro: No focal deficits, no facial deformity, AO x3, power 5/5 in all limbs Extremities: B/L LE swelling with superficial ulcerations Data : 11/01/20 05:25 11/01/20 05:25 Micro: Microbiology 10/31/20 17:15 Blood Culture - Preliminary Blood NEGATIVE TO DATE 10/31/20 17:06 Blood Culture - Preliminary Blood NEGATIVE TO DATE A&P Assessment and plan (1) Fever: Source under evaluation Unclear localizing source, exam limited by obesity suspect diverticlutis which may be the cause pending blood culture LE wounds appear stable UA with increased WBC, negative nitrite and LA, check urine culture Empiric Zosyn while undergoing work up check covid Ag Status: Acute (2) Generalized weakness: encourage ambulation, OOB to chair No acute fractures Status: Acute (3) Fall: Status: Acute (4) Morbid obesity: Status: Acute Attestations Medical Necessity Statement*: fever evaluation, need for iv abx , still febrile to 102F Coding Level of Care Code Acute Correction Lieutenant for [facility] Diagnoses Fever R50.9 Generalized weakness R53.1 Fall W19.XXXA Morbid obesity E66.01
[2020-11-01 19:27] LABS: SARS Covid-2 Antigen Negative (Negative)
[2020-11-01 20:00] VITALS: BP 127/61; PULSE 61; RESP 18; TEMP 36.7; O2SAT 94
[2020-11-01] MEDS: enoxaparin 40 mg/0.4 mL Syringe SUBCUT (21:22)
[2020-11-02] VITALS: BP 134/47; PULSE 65; RESP 17; TEMP 36.6; O2SAT 95
[2020-11-02] MEDS: piperacillin-tazobactam 3.375 GM in sodium chloride 0.9% (plus) 50 ML IV ×2 (00:44→08:33)
[2020-11-02 04:00] VITALS: BP 149/71; PULSE 60; RESP 16; TEMP 36.8; O2SAT 94
[2020-11-02] MEDS: acetaminophen 325 mg Tablet 650 MG PO (05:06)
[2020-11-02 07:48] LABS: Glucose Point of Care 140 mg/dL (70-110)
[2020-11-02 07:57] VITALS: BP 136/73; PULSE 53; RESP 16; TEMP 36.9; O2SAT 94
[2020-11-02 11:43] VITALS: BP 135/70; PULSE 58; RESP 16; TEMP 36.4; O2SAT 95
--- NOTE | 2020-11-02 14:00 | P.DS_ITS ---
Discharge Providers Date of Admission: 10/31/20 17:21 Date of Discharge: November 02, 2020 Attending Provider at Admission: Moira Vega MD Attending Provider at Discharge: Moira Vega MD Primary Care Provider: Cezar Fernandez Diagnoses at Discharge Discharge Diagnosis (1) Fever: Status: Acute (2) Generalized weakness: Status: Acute (3) Fall: Status: Acute (4) Morbid obesity: Status: Acute Reason for Visit Reason for Visit: WEAKNESS Hospital Course Hospital Course Kenney Olea is a 64 year old male who presented to the ER with chief complaints of generalized feeling of being unwell over the last few days. He sustained a recent fall at home while attempting to get out of bed. His friend brought him to ER when he was unable to ambulate for the last 3 to 4 days. Patient had been experiencing chills at home. T-max in the hospital noted to be 99.6. Mild abdominal discomfort is reported. No diarrhea nausea or vomiting. White blood cell count noted to be at 15, improved quickly with antibiotics. No infiltrates on CXR. Unable to get CT abdomen due to obesity/high BMI. Recent history of diverticulitis. urine cx with mixed GNR in low colony counts, thought to be contaminants. Blood cx NGTD. Overall unable to localize a source of infection, however abdominal source/diverticulitis suspected. He received empiric abx with Zosyn, now being discharged with transition to levofloxacin and Flagyl for additoinal 5 days. Afberile over 24 hrs, leukocytosis resolved. beta blockers held at discharge due to bradycardia. Lantus also held as FS here ranging 70s without any insulin, sliding scale continued Physical Exam Narrative: EXAM NARRATIVE: GEN: Awake, alert and oriented, no acute distress CVS: S1S2 N RS: CTA B/L Abd: Soft, nt/nd , bs+ , morbidly obese MEDIA PRODUCTION OPERATOR: no focal neuro deficits Discharge Data Data Completed and Pending: Completed Studies During Hospitalization Category Date Time Status XR chest 1V max ble [id number] Stat Exams 10/31/20 14:58 Completed Pending at discharge Category Date Time Status Blood Culture Sta t Lab 10/31/20 17:15 Results Labs from last 24 hours 11/02/20 11/01/20 07:33 18:32 POC Glucose 140 H SARS-CoV-2 Ag (Rap id) Negative Addt'l Data from Hospital Stay: Laboratory Results WBC 9.8 10^3/uL (4.0- 10.0) 11/01/20 05:25 RBC 2.81 10^6/uL (4.1 -5.3) L 11/01/20 05:25 Hgb 8.5 g/dL (11.7-16 .6) L 11/01/20 05:25 Hct 28.9 % (42.0-52.0 ) L 11/01/20 05:25 MCV 102.8 fL (80-94) H 11/01/20 05:25 MCH 30.2 pg (28.0-34. 0) 11/01/20 05:25 MCHC 29.4 g/dL (30.0-3 6.0) L 11/01/20 05:25 RDW 14.8 % (12.1-15.1 ) 11/01/20 05:25 Plt Count 210 10^3/cmm (130 -400) 11/01/20 05:25 MPV 8.6 fL (7.4-10.4) 11/01/20 05:25 Neut % (Auto) 72.0 % 11/01/20 05:25 Lymph % (Auto) 12.8 % 11/01/20 05:25 [place] % (Auto) 12.5 % 11/01/20 05:25 Eos % (Auto) 0.9 % 11/01/20 05:25 Baso % (Auto) 0.5 % 11/01/20 05:25 Neut # (Auto) 7.05 10^3/uL (1.8 -7.7) 11/01/20 05:25 Lymph # (Auto) 1.3 10^3/uL (0.8- 4.8) 11/01/20 05:25 [place] # (Auto) 1.2 10^3/uL (0.2- 0.9) H 11/01/20 05:25 Eos # (Auto) 0.1 10^3/uL (0.0- 0.8) 11/01/20 05:25 Baso # (Auto) 0.1 10^3/uL (0.0- 0.1) 11/01/20 05:25 Nucleated RBC % (a uto) 0 % 11/01/20 05:25 Nucleated RBCs # 0.0 /100WBC 11/01/20 05:25 Sodium 139 mmol/L (136-1 45) 11/01/20 05:25 Potassium 4.4 mmol/L (3.5-5 .1) 11/01/20 05:25 Chloride 106 mmol/L (98-10 7) 11/01/20 05:25 Carbon Dioxide 24 mmol/L (22-29) 11/01/20 05:25 Anion Gap 13.4 (5-19) 11/01/20 05:25 BUN 26 mg/dL (8-23) H 11/01/20 05:25 Creatinine 1.9 mg/dL (0.7-1. 2) H 11/01/20 05:25 GFR Calculation 36.1 mL/min (90-1 30) L 11/01/20 05:25 Glucose 72 mg/dL (65-115) 11/01/20 05:25 POC Glucose 140 mg/dL (70-110 ) H 11/02/20 07:33 Calculated Osmolal ity 291 mOsm/kg (285- 295) 11/01/20 05:25 Calcium 8.3 mg/dL (8.5-10 .5) L 11/01/20 05:25 Magnesium 1.9 mg/dL (1.7-2. 3) 10/31/20 13:59 Total Bilirubin 0.4 mg/dL (0.15-1 .2) 11/01/20 05:25 AST 19 U/L (0-40) 11/01/20 05:25 ALT 15 U/L (0-41) 11/01/20 05:25 Alkaline Phosphata se 42 IU/L (40-130) 11/01/20 05:25 Troponin T Baselin e 158 ng/L (0-15) H* 10/31/20 13:59 Troponin T 120 Min joe 142.3 ng/L (0-15) H 10/31/20 15:51 Delta Troponin T -15.7 ABS# (0-10) L 10/31/20 15:51 Troponin T Hi Sens 6Hr 128.0 ng/L (0-15) H 10/31/20 19:35 Troponin T Hi Sens 6Hr Delta -30.0 ng/L (0-12) L 10/31/20 19:35 Total Protein 6.8 g/dL (6.6-8.7 ) 11/01/20 05:25 Albumin 3.5 g/dL (3.5-5.2 ) 11/01/20 05:25 Globulin 3.3 g/dL (1.3-4.6 ) 11/01/20 05:25 Urine Color Dark yellow (Yel low) 10/31/20 15:16 Urine Appearance Sl hazy (CLEAR) 10/31/20 15:16 Urine pH 5 (5-7) 10/31/20 15:16 Ur Specific Gravit y 1.015 (1.005-1.0 30) 10/31/20 15:16 Urine Protein Trace (Negative) 10/31/20 15:16 Urine Glucose (UA) Norm (Normal) 10/31/20 15:16 Urine Ketones Negative (Negati ve) 10/31/20 15:16 Urine Blood 3+ (Negative) H 10/31/20 15:16 Urine Nitrate Negative (Negati ve) 10/31/20 15:16 Urine Bilirubin Neg (Negative) 10/31/20 15:16 Urine Urobilinogen Norm mg/dL (Negat clyde) 10/31/20 15:16 Ur Leukocyte Amanda ase Negative (Negati ve) 10/31/20 15:16 Urine RBC 0-4 /hpf (0-2) H 10/31/20 15:16 Urine WBC 5-10 /hpf (0-5) H 10/31/20 15:16 Ur Squamous Epith Cells None /hpf (0-5) 10/31/20 15:16 Amorphous Sediment 1+ /hpf 10/31/20 15:16 Urine Bacteria 1+ /hpf (NONE) H 10/31/20 15:16 SARS-CoV-2 Ag (Rap id) Negative (Negati ve) 11/01/20 18:32 Impressions Chest X-Ray 10/31/20 14:58 IMPRESSION: Nonacute. Vitals: Last Vital Signs Temp 97.6 F 11/02/20 11:43 Pulse 58 L 11/02/20 11:43 Resp 16 11/02/20 11:43 BP 135/70 11/02/20 11:43 Pulse Ox 95 11/02/20 11:43 Discharge Plan Discharge Patient Disposition: Home Condition: Stable Prescriptions: New Flagyl 500 mg tablet 500 mg PO Q8H 5 Days Qty: 15 RF: 0 levofloxacin 750 mg tablet 750 mg PO DAILY 5 Days Qty: 5 RF: 0 Continued amiodarone 200 mg tablet 200 mg PO BID@0600,1700 RF: 0 potassium chloride 10 mEq tablet extended release 10 meq PO BID@0600,1700 RF: 0 levothyroxine 25 mcg tablet 25 mcg PO DAILY@0600 RF: 0 gabapentin 300 mg capsule 900 mg PO BEDTIME@2100 RF: 0 insulin lispro 100 unit/mL insulin pen See Rx Instructions .ROUTE .COMPLEX RF: 0 Eliquis 5 mg tablet 5 mg PO BID@0600,1700 RF: 0 Held metoprolol tartrate 25 mg tablet 25 mg PO BID@0600,1700 RF: 0 Hold Instructions: Resume on 11/10/20. follow up after PCP visit Lantus Solostar U-100 Insulin 100 unit/mL (3 mL) insulin pen 70 unit SUBCUT BID@0600,1700 RF: 0 Hold Instructions: Resume on 11/10/20. after PCP follow up Discharge Orders: Discharge Order (Routine); Ordered 11/02/20 Ordered By: Moira Vega Referrals: Cezar Fernandez [Primary Care Provider] - Patient Instructions: Opioid Safety Discharge Attestations Time Spent in Discharge Care*: greater than 30 min Quality Metrics Clinical Quality Measures During this hospital stay, did patient experience: None Coding Level of Care Code Acute g FW GA note Diagnoses Fever R50.9 Generalized weakness R53.1 Fall W19.XXXA Morbid obesity E66.01
[2020-11-02 16:00] VITALS: BP 128/72; PULSE 59; RESP 17; TEMP 36.3; O2SAT 95
[2020-11-02 18:49] VITALS: BP 128/72; PULSE 59; RESP 17; TEMP 36.3; O2SAT 95
== END 2020-11-02 18:50 | disposition home health service (06) | DRG 392 ==
LOC: ER 16:45 → MEDSURG 11-01 09:33
PROVIDERS: Admitting Provider Student in an Organized Health Care Education/Training Program; Emergency Provider Family Medicine; PCP Physician Assistant Medical; Visit Provider Student in an Organized Health Care Education/Training Program
DX: K57.92 Diverticulitis of intestine, part unspecified, without perforation or abscess without bleeding (principal); Z68.44 Body mass index [BMI] 60.0-69.9, adult; R53.1 Weakness; E66.01 Morbid (severe) obesity due to excess calories; Z74.09 Other reduced mobility; Z91.81 History of falling
CPT/HCPCS: 36415; 36416; 71045; 80053; 81001; 82962; 83735; 84484; 85025; 87040; 87426; 93005; 96365; 96372; 99285; J1650; J2270; J2405; J2543; J7040

== ENCOUNTER 2020-12-09 12:29 | Emergency (ER) | payer MEDICARE, MEDICAID, SELFPAY ==
[2020-12-09 12:46] VITALS: BP 152/71; PULSE 78; RESP 18; TEMP 36.2; O2SAT 95; BMI 67.3
[2020-12-09 15:41] LABS: Basophils # 0.1 10^3/uL (0.0-0.1); Basophils % 0.7 %; Eosinophils # 0.1 10^3/uL (0.0-0.8); Hematocrit 31.3 % (42.0-52.0); Hemoglobin 9.8 g/dL (11.7-16.6); Lymphocytes # 1.4 10^3/uL (0.8-4.8); Lymphocytes % 14.9 %; Mean Corpuscular HGB Conc 31.3 g/dL (30.0-36.0); Mean Corpuscular Hemoglobin 30.7 pg (28.0-34.0); Mean Corpuscular Volume 98.1 fL (80-94); Mean Platelet Volume 8.8 fL (7.4-10.4); Monocytes # 0.9 10^3/uL (0.2-0.9); Monocytes % 10.4 %; Neutrophils # 6.56 10^3/uL (1.8-7.7); Neutrophils % 72.2 %; Nucleated Red Blood Cells % 0 %; Platelet Count 229 10^3/cmm (130-400); Red Blood Count 3.19 10^6/uL (4.1-5.3); Red Cell Distribution Width 14.8 % (12.1-15.1); White Blood Count 9.1 10^3/uL (4.0-10.0)
--- NOTE | 2020-12-09 15:41 | ED_ITS ---
HPI - Extremity Problem General: Chief complaint: Extremity Problem,Nontraumatic Stated complaint: BLE pain and swelling, sent by PCP Time Seen by Provider: 12/09/20 15:29 History of Present Illness: HPI Narrative: This patient is a 64-year-old male who presents to the emergency department with a complaint of bilateral venous stasis and weeping of the legs. Patient's weight is over 550 pounds according to patient. Patient states that from time to time he will have significant venous stasis changes to his lower extremities where they start weeping fluid. Patient states he wears Unna boots for a while then it began again. Patient is followed by home health due to his size and inability to walk. Patient states they have been wrapping his legs for the past couple weeks. Now the weeping has become so profound that it is just weeping right through his dressings. Patient denies for fever congestion. Patient his PCP sent to the emergency department for further evaluation of these lower extremity wounds and weeping. MD Complaint: extremity swelling Onset (ago): week(s) Pain Consistency: constant Location: left, right and lower extremity Associated symptoms: Deny chest pain, fever(s) or rash Review of Systems General: Reports: 10 or more systems reviewed and unremarkable except in HPI and below Const: Denies: fever(s), chills, body aches or fatigue Eyes: Denies: change in vision or blurry vision ENMT: Denies: throat pain, hoarseness or mouth pain Card: Denies: chest pain, palpitations, irregular heart rhythm, edema, swelling of feet/ankles or lightheadedness Resp: Denies: dyspnea, productive cough, non-productive cough, wheezing or pain on inspiration GI: Denies: abdominal pain, nausea or vomiting : Denies: flank pain, dysuria, urinary frequency, urinary urgency or urinary hesitancy Musc: Reports: extremity swelling; Denies: neck pain, back pain, extremity pain, joint pain, joint swelling, joint redness, joint warmth or limited range of motion Skin/Breast: Reports: skin swelling, non-healing lesions and lesions; Denies: rash, pruritus, erythema or skin tenderness Neuro: Denies: headache(s), numbness in extremities or weakness in extremities Psych: Denies: anxiety or depression PFS ED PFSH: Medical History Fall Morbid obesity Social History Smoking and tobacco status: never smoked Alcohol intake: never Substance/Drug Use: never Physical Exam Const: COMMON NORMALS: no acute distress, average body habitus, patient oriented x3, no limitations, healthy appearing, alert and well nourished HENMT: COMMON NORMALS: normocephalic, atraumatic, hearing grossly normal bilaterally, external ears normal, EAC's normal, TM's normal bilaterally, Normal external nose present, Normal nasal mucous membranes and turbinates present, moist oral mucous membranes, oropharynx normal, dentition normal and gingiva normal HEAD & SCALP: normocephalic and atraumatic NOSE: Normal external nose present and Normal nasal mucous membranes and turbinates present EXTERNAL EAR: Yes external ears normal EXTERNAL AUDITORY CANAL: EAC's normal TYMPANIC MEMBRANE: TM's normal bilaterally Neck/C-Spine: COMMON NORMALS: full ROM, no lymphadenopathy, supple, no meningeal signs, no JVD, Thyroid normal and No carotid bruits THYROID: Thyroid normal Chest: COMMONS NORMALS: normal inspection of the chest, normal palpation of e ntire chest wall, normal inspection of the breasts and normal palpation of the breasts Breast/axilla inspection: Yes normal inspection of the breasts BREAST/AXILLA PALPATION: Yes normal palpation of the breasts Resp: COMMON NORMALS: normal respiratory effort, No retractions, No use of accessory muscles, clear to auscultation bilaterally and percussion normal AUSCULTATION: clear to auscultation bilaterally PERCUSSION: percussion normal Cardio: COMMON NORMALS: no JVD, regular rate, regular rhythm, S1 normal heart sound present, S2 normal heart sound present, No gallops present (Cardio), No clicks present (Cardio), No murmurs present (Cardio), No rub (Cardio) and Peripheral pulses 2+ throughout RATE: regular rate RHYTHM: regular rhythm HEART SOUNDS: S1 normal heart sound present and S2 normal heart sound present PERIPHERAL PULSES: Peripheral pulses 2+ throughout GI: COMMON NORMALS: Normal to inspection, nondistended, normoactive bowel sounds present, Soft to palpation, non-tender, No hepatosplenomegaly present, no masses and no bruits PALPATION: Yes Soft to palpation and Yes No hepatos plenomegaly present : COMMON NORMALS: Yes no CVA tenderness BLADDER/KIDNEY EXAM: Yes no CVA tenderness Back/Pelvis: COMMON NORMALS: no CVA tenderness, thoracic and lumbar spine normal to inspection, no thoracic nor lumbar tenderness, thoraco-lumbar ROM normal and straight leg raise negative bilaterally Extremity: COMMON NORMALS: normal to inspection, full ROM, capillary refill normal, no joint enlargement and no clubbing, cyanosis or edema RIGHT LOWER EXTREMITY: Yes lower leg Right lower leg: Yes inspection (Significant swelling of venous stasis with weeping) LEFT LOWER EXTREMITY: Yes lower leg (Signific ant swelling with venous stasis and weeping of fluid) Left lower leg: Yes inspection EXTREMITY IMAGE (FRONT): 1. Significant venous stasis with bilateral Unna boot wraps with significant weeping fluid. Fluid is pooling in the floor. Neuro: COMMON NORMALS: patient oriented x3 SENSORIUM/ORIENTATION: Yes alert MENINGEAL SIGNS: Yes no meningeal signs Skin: WOUNDS: Yes wounds noted (Chronic lower extreme knee bilateral venous stasis changes weeping) with surrounding erythema Course Reevaluation(s): Reevaluation #1: This patient is a 64-year-old male who presents to the emergency department with a complaint of bilateral venous stasis and weeping of the legs. Patient's weight is over 550 pounds according to patient. Patient states that from time to time he will have significant venous stasis changes to his lower extremities where they start weeping fluid. Patient states he wears Unna boots for a while then it began again. Patient is followed by home health due to his size and inability to walk. Patient states they have been wrapping his legs for the past couple weeks. Now the weeping has become so profound that it is just weeping right through his dressings. Patient denies for fever congestion. Patient his PCP sent to the emergency department for further evaluation of these lower extremity wounds and weeping. Chronic venous stasis changes. Patient has home health set up but needs additional wound care available at home. Laboratory values negative for any acute findings. manager medicare will help set up for wound care with home health. Patient is to continue all home treatments. Nursing staff to rewrap legs with Unna boots prior to discharge. Patient is to continue all home medications. Time: 17:41 Vital Signs: Vital signs: Vital Signs Temperature 97.1 F L 12/09/20 12:46 Pulse Rate 78 12/09/20 12:46 Respiratory Rate 18 12/09/20 12:46 Blood Pressure 152/71 12/09/20 12:46 Pulse Oximetry 95 12/09/20 12:46 MDM - Extremity (Nontraumatic) MDM Narrative: Medical decision making narrative: Chronic venous stasis changes. Patient has home health set up but needs additional wound care kamila ilable at home. Laboratory values negative for any acute findings. manager medicare will help set up for wound care with home health. Patient is to continue all home treatments. Nursing staff to rewrap legs with Unna boots prior to discharge. Patient is to continue all home medications. Lab Data: Labs: Lab Results 12/09/20 12/09/20 12/09/20 Range/Units 15:31 15:31 15:31 WBC 9.1 (4.0-10.0) 10^3/ uL RBC 3.19 L (4.1-5.3) 10^6/u L Hgb 9.8 L (11.7-16.6) g/dL Hct 31.3 L (42.0-52.0) % MCV 98.1 H (80-94) fL MCH 30.7 (28.0-34.0) pg MCHC 31.3 (30.0-36.0) g/dL RDW 14.8 (12.1-15.1) % Plt Count 229 (130-400) 10^3/c mm MPV 8.8 (7.4-10.4) fL Neut % (Auto) 72.2 % Lymph % (Auto) 14.9 % [place] % (Auto) 10.4 % Eos % (Auto) 1.0 % Baso % (Auto) 0.7 % Neut # (Auto) 6.56 (1.8-7.7) 10^3/u L Lymph # (Auto) 1.4 (0.8-4.8) 10^3/u L [place] # (Auto) 0.9 (0.2-0.9) 10^3/u L Eos # (Auto) 0.1 (0.0-0.8) 10^3/u L Baso # (Auto) 0.1 (0.0-0.1) 10^3/u L Nucleated RBC % (a uto) 0 % Nucleated RBCs # 0.0 /100WBC PT (12.1-14.9) SECO NDS INR (0.8-1.2) APTT (23.9-36.7) SECO NDS Sodium 138 (136-145) mmol/L Potassium 4.6 (3.5-5.1) mmol/L Chloride 103 (98-107) mmol/L Carbon Dioxide 23 (22-29) mmol/L Anion Gap 16.6 (5-19) BUN 28 H (8-23) mg/dL Creatinine 1.5 H (0.7-1.2) mg/dL GFR Calculation 47.4 L (90-130) mL/min Glucose 144 H (65-115) mg/dL Calculated Osmolal ity 294 (285-295) mOsm/k g Lactic Acid 0.9 (0.5-2.2) mmol/L Calcium 8.4 L (8.5-10.5) mg/dL Total Bilirubin 0.3 (0.15-1.2) mg/dL AST 10 (0-40) U/L ALT 8 (0-41) U/L Alkaline Phosphata se 66 (40-130) IU/L NT-Pro-B Natriuret Pep (0-125) pg/mL Total Protein 6.9 (6.6-8.7) g/dL Albumin 4.0 (3.5-5.2) g/dL Globulin 2.9 (1.3-4.6) g/dL Urine Color (Yellow) Urine Appearance (CLEAR) Urine pH (5-7) Ur Specific Gravit y (1.005-1.030) Urine Protein (Negative) Urine Glucose (UA) (Normal) Urine Ketones (Negative) Urine Blood (Negative) Urine Nitrate (Negative) Urine Bilirubin (Negative) Urine Urobilinogen (Negative) mg/dL Ur Leukocyte Amanda ase (Negative) Urine RBC (0-2) /hpf Urine WBC (0-5) /hpf Ur Squamous Epith Cells (0-5) /hpf Amorphous Sediment Urine Bacteria (NONE) /hpf 12/09/20 12/09/20 12/09/20 Range/Units 15:31 16:04 16:40 WBC (4.0-10.0) 10^3/ uL RBC (4.1-5.3) 10^6/u L Hgb (11.7-16.6) g/dL Hct (42.0-52.0) % MCV (80-94) fL MCH (28.0-34.0) pg MCHC (30.0-36.0) g/dL RDW (12.1-15.1) % Plt Count (130-400) 10^3/c mm MPV (7.4-10.4) fL Neut % (Auto) % Lymph % (Auto) % [place] % (Auto) % Eos % (Auto) % Baso % (Auto) % Neut # (Auto) (1.8-7.7) 10^3/u L Lymph # (Auto) (0.8-4.8) 10^3/u L [place] # (Auto) (0.2-0.9) 10^3/u L Eos # (Auto) (0.0-0.8) 10^3/u L Baso # (Auto) (0.0-0.1) 10^3/u L Nucleated RBC % (a uto) % Nucleated RBCs # /100WBC PT 19.10 H (12.1-14.9) SECO NDS INR 1.56 H (0.8-1.2) APTT 34.6 (23.9-36.7) SECO NDS Sodium (136-145) mmol/L Potassium (3.5-5.1) mmol/L Chloride (98-107) mmol/L Carbon Dioxide (22-29) mmol/L Anion Gap (5-19) BUN (8-23) mg/dL Creatinine (0.7-1.2) mg/dL GFR Calculation (90-130) mL/min Glucose (65-115) mg/dL Calculated Osmolal ity (285-295) mOsm/k g Lactic Acid (0.5-2.2) mmol/L Calcium (8.5-10.5) mg/dL Total Bilirubin (0.15-1.2) mg/dL AST (0-40) U/L ALT (0-41) U/L Alkaline Phosphata se (40-130) IU/L NT-Pro-B Natriuret Pep 1493 H (0-125) pg/mL Total Protein (6.6-8.7) g/dL Albumin (3.5-5.2) g/dL Globulin (1.3-4.6) g/dL Urine Color Yellow (Yellow) Urine Appearance Clear (CLEAR) Urine pH 5 (5-7) Ur Specific Gravit y 1.010 (1.005-1.030) Urine Protein Neg (Negative) Urine Glucose (UA) Norm (Normal) Urine Ketones Negative (Negative) Urine Blood 2+ H (Negative) Urine Nitrate Negative (Negative) Urine Bilirubin Neg (Negative) Urine Urobilinogen Norm (Negative) mg/dL Ur Leukocyte Amanda ase 1+ H (Negative) Urine RBC 0-4 H (0-2) /hpf Urine WBC 0-4 H (0-5) /hpf Ur Squamous Epith Cells 0-4 H (0-5) /hpf Amorphous Sediment Not Reportable Urine Bacteria None (NONE) /hpf EKG Data^: EKG 1: Attestation: I personally reviewed and interpreted this EKG as follows: EKG interpretation date: 12/09/20 EKG interpretation time: 16:02 Prior EKG tracings: not available for review Ischemic changes: non-specific ST-T wave changes Interpretation: Sinus bradycardia with a first-degree AV block moderate interventricular conduction delay heart rate 50. Discharge Plan Discharge Patient Disposition: Home Clinical Impression: Lower extremity edema, Generalized weakness, Superficial thrombophlebitis, Venous stasis dermatitis of both lower extremities Condition: Stable Prescriptions: New Lasix 20 mg tablet 20 mg PO BID Qty: 20 RF: 0 No Action amiodarone 200 mg tablet 200 mg PO BID@0600,1700 RF: 0 potassium chloride 10 mEq tablet extended release 10 meq PO BID@0600,1700 RF: 0 levothyroxine 25 mcg tablet 25 mcg PO DAILY@0600 RF: 0 gabapentin 300 mg capsule 900 mg PO BEDTIME@2100 RF: 0 insulin lispro 100 unit/mL insulin pen See Rx Instructions .ROUTE .COMPLEX RF: 0 metoprolol tartrate 25 mg tablet 25 mg PO BID@0600,1700 RF: 0 Hold Instructions: Resume on 11/10/20. follow up after PCP visit Lantus Solostar U-100 Insulin 100 unit/mL (3 mL) insulin pen 70 unit SUBCUT BID@0600,1700 RF: 0 Hold Instructions: Resume on 11/10/20. after PCP follow up Eliquis 5 mg tablet 5 mg PO BID@0600,1700 RF: 0 iron 325 mg (65 mg iron) Tablet 325 mg PO BID@0600,1700 RF: 0 Discharge Orders: Discharge ED (Routine); Ordered 12/09/20 Ordered By: Chencho Reyna Referrals: Cezar Fernandez [Primary Care Provider] - Discharge Diet: Advance as tolerated Discharge Activity: Increase activity as tolerated Patient Instructions: Opioid Safety Activity Restrictions/Additional Instructions: Continue with home health and wound care as instructed. Take medications as instructed. Follow-up with primary care physician in 2 to 3 days. Return to the emergency department symptoms fail to improve or worsen. Coding Level of Care Code ED Manager Of Investigations for Deisi Vogt Exam Comprehensive
--- NOTE | 2020-12-09 15:41 | ECG_ITS ---
[facility] Test Date: 2020-12-09 Pat Name: Kenney Olea Department: Room: Gender: Male Antenna Rigger: : 1955 Requested By: Chencho Reyna Order Number: [id number] MD: Lila Gerber M.D. Measurements Intervals Moon Rate: 50 P: 11 KS: 210 QRS: 31 QRSD: 123 T: 58 QT: 484 QTc: 442 Interpretive Statements SINUS BRADYCARDIA WITH FIRST DEGREE AV BLOCK MODERATE INTRAVENTRICULAR CONDUCTION DELAY [110+ ms QRS DURATION] WARNING: DATA QUALITY MAY AFFECT INTERPRETATION Compared to ECG 10/31/2020 21:28:29 First degree AV block now present Intraventricular conduction delay now present Sinus rhythm no longer present Electronically Signed On 12-09-2020 16:25:31 CDT by Lila Gerber M.D. [email or web address]
[2020-12-09 16:00] LABS: Alanine Aminotransferase 8 U/L (0-41); Alkaline Phosphatase 66 IU/L (40-130); Anion Gap 16.6 (5-19); Aspartate Amino Transferase 10 U/L (0-40); Blood Urea Nitrogen 28 mg/dL (8-23); Calcium 8.4 mg/dL (8.5-10.5); Carbon Dioxide 23 mmol/L (22-29); Chloride 103 mmol/L (98-107); Globulin 2.9 g/dL (1.3-4.6); Glomerular Filtration Rate 47.4 mL/min (90-130); Glucose 144 mg/dL (65-115); Osmolality Calculated 294 mOsm/kg (285-295); Potassium 4.6 mmol/L (3.5-5.1); Sodium 138 mmol/L (136-145); Total Bilirubin 0.3 mg/dL (0.15-1.2); Total Protein 6.9 g/dL (6.6-8.7)
[2020-12-09 17:04] LABS: Lactic Sepsis W/Reflex 0.9 mmol/L (0.5-2.2)
[2020-12-09 17:05] LABS: INR 1.56 (0.8-1.2)
[2020-12-09 17:06] LABS: Partial Thromboplastin Time 34.6 SECONDS (23.9-36.7)
[2020-12-09 17:08] LABS: Add Urine Microscopic? YES; Bilirubin Urine Neg (Negative); Blood Urine 2+ (Negative); Glucose Urine UA Norm (Normal); Ketones Urine Negative (Negative); Leukocyte Esterase Urine 1+ (Negative); Nitrate Urine Negative (Negative); Protein Urine Neg (Negative); Urine Appearance Clear (CLEAR); Urine Color Yellow (Yellow); Urobilinogen Urine Norm (Negative); pH Urine 5 (5-7)
[2020-12-09 17:13] LABS: NT Pro B Type Natriuretic Pept 1493 pg/mL (0-125)
[2020-12-09 17:17] LABS: Add Urine Culture? No; RBC Urine 0-4 /hpf (0-2); Squamous Epithelial Cell Urine 0-4 /hpf (0-5); WBC Urine 0-4 /hpf (0-5)
[2020-12-09] MEDS: neomycin-poly-bacitracin oint 28 gm 1 APPLIC TOPICAL (17:52)
[2020-12-09 18:20] VITALS: PULSE 67; O2SAT 98
--- NOTE | 2020-12-09 18:21 | PC.NURSE ---
vitals printed in chart
--- NOTE | 2020-12-10 13:41 | DCPLANNER ---
senior investment manager had message to follow up with patient to make sure that patient was receiving wound care treatment in the home. senior investment manager called patient, unable to speak with patient, left a voicemail for patient to return leather case finisher phone call. senior investment manager called patients primary care physician to see if they would now which home health company was seeing patient. Francie from patients primary care physician, Mary in [facility]. senior investment manager was told that patient does receive home health, and they are doing wound care for patient.
== END 2020-12-09 18:21 | disposition home or self-care (01) ==
PROVIDERS: Physician Assistant; Emergency Provider Emergency Medicine; PCP Physician Assistant Medical
DX: R60.0 Localized edema (principal); R53.1 Weakness; I80.03 Phlebitis and thrombophlebitis of superficial vessels of lower extremities, bilateral; I87.2 Venous insufficiency (chronic) (peripheral); Z79.01 Long term (current) use of anticoagulants; Z79.4 Long term (current) use of insulin
CPT/HCPCS: 36415; 80053; 81001; 83605; 83880; 85025; 85610; 85730; 93005; 99283

== ENCOUNTER 2020-12-28 09:25 | Outpatient (RCR) | payer MEDICARE, MEDICAID, SELFPAY | END 2020-12-28 09:26 | disposition home or self-care (01) | LOC: WOUND 09:25 | PROVIDERS: PCP Physician Assistant Medical; Visit Provider Nurse Practitioner Family | DX: E11.621 Type 2 diabetes mellitus with foot ulcer (principal); L97.422 Non-pressure chronic ulcer of left heel and midfoot with fat layer exposed; L97.522 Non-pressure chronic ulcer of other part of left foot with fat layer exposed; E11.622 Type 2 diabetes mellitus with other skin ulcer; L97.812 Non-pressure chronic ulcer of other part of right lower leg with fat layer exposed; L97.822 Non-pressure chronic ulcer of other part of left lower leg with fat layer exposed | CPT/HCPCS: 11042; 11045 ==

== ENCOUNTER 2021-01-11 08:48 | Outpatient (CLI) | payer MEDICARE, MEDICAID, SELFPAY | END 2021-01-11 08:49 | disposition home or self-care (01) | LOC: WOUND 08:49 | PROVIDERS: PCP Physician Assistant Medical; Visit Provider Thoracic Surgery (Cardiothoracic Vascular Surgery) | DX: E11.621 Type 2 diabetes mellitus with foot ulcer (principal); L97.422 Non-pressure chronic ulcer of left heel and midfoot with fat layer exposed; L97.522 Non-pressure chronic ulcer of other part of left foot with fat layer exposed; L97.511 Non-pressure chronic ulcer of other part of right foot limited to breakdown of skin; E11.622 Type 2 diabetes mellitus with other skin ulcer; L97.822 Non-pressure chronic ulcer of other part of left lower leg with fat layer exposed; L97.812 Non-pressure chronic ulcer of other part of right lower leg with fat layer exposed | CPT/HCPCS: 11042; 11045; 97597 ==

== ENCOUNTER 2021-01-29 08:52 | Outpatient (CLI) | payer MEDICARE, MEDICAID, SELFPAY | END 2021-01-29 08:53 | disposition home or self-care (01) | PROVIDERS: PCP Physician Assistant Medical; Visit Provider Physician Assistant Medical | DX: L98.492 Non-pressure chronic ulcer of skin of other sites with fat layer exposed (principal); E11.51 Type 2 diabetes mellitus with diabetic peripheral angiopathy without gangrene | CPT/HCPCS: 87070; 87075; 87077; 87186; 87205 ==

== ENCOUNTER 2021-02-01 08:03 | Outpatient (CLI) | payer MEDICARE, MEDICAID, SELFPAY | END 2021-02-01 08:04 | disposition home or self-care (01) | LOC: WOUND 08:04 | PROVIDERS: PCP Physician Assistant Medical; Visit Provider Nurse Practitioner Family | DX: E11.621 Type 2 diabetes mellitus with foot ulcer (principal); L97.422 Non-pressure chronic ulcer of left heel and midfoot with fat layer exposed; L97.522 Non-pressure chronic ulcer of other part of left foot with fat layer exposed; E11.622 Type 2 diabetes mellitus with other skin ulcer; L97.822 Non-pressure chronic ulcer of other part of left lower leg with fat layer exposed | CPT/HCPCS: 11042; 11045 ==

== ENCOUNTER 2021-02-08 08:54 | Outpatient (CLI) | payer MEDICARE, MEDICAID, SELFPAY ==
--- NOTE | 2021-02-08 11:55 | XRR_ITS ---
PROCEDURE INFORMATION: Exam: XR Left Foot Exam date and time: 02/08/2021 11:55 AM Age: 65 years old Clinical indication: Pain and condition or disease; Other: Wound left fifth toe; Foot and toes; Patient HX: Pre-op evaluation of a wound that is present on his left fifth toe. PT done in motorized chair; Additional info: Foot pain TECHNIQUE: Imaging protocol: XR Left foot. Views: 3 or more views. COMPARISON: CR XR foot LT min 3V* [id number] 01/27/2020 10:25 AM FINDINGS: Bones/joints: Aggressive osteolytic changes are present in the distal aspect of the 5th metatarsal bone and the proximal phalanx of the 5th digit which have increased from prior. Joint spaces are aligned. Soft tissues: There is soft tissue gas at the lateral margin of the forefoot. Diffuse soft tissue swelling. XR/XR foot LT min 3V* [id number] IMPRESSION: Aggressive osteomyelitis changes are present in the 5th digit crossing the metatarsal phalangeal joint space.
== END 2021-02-08 08:55 | disposition home or self-care (01) ==
LOC: WOUND 08:55
PROVIDERS: PCP Physician Assistant Medical; Visit Provider Emergency Medicine
DX: E11.621 Type 2 diabetes mellitus with foot ulcer (principal); Z11.52 Encounter for screening for COVID-19; L97.422 Non-pressure chronic ulcer of left heel and midfoot with fat layer exposed; Z20.822 Contact with and (suspected) exposure to COVID-19; L97.523 Non-pressure chronic ulcer of other part of left foot with necrosis of muscle; E11.622 Type 2 diabetes mellitus with other skin ulcer; L97.822 Non-pressure chronic ulcer of other part of left lower leg with fat layer exposed
CPT/HCPCS: 11042; 11043; 11045; 73630; 87635; G0463

== ENCOUNTER 2021-02-12 05:40 | Day surgery (SDC) | payer MEDICARE, MEDICAID, SELFPAY ==
[2021-02-11 14:28] VITALS: BMI 68.0
[2021-02-12 06:08] VITALS: BP 163/66; PULSE 63; RESP 20; TEMP 37.3; O2SAT 99
--- NOTE | 2021-02-12 06:34 | W.PM.OPSUD ---
Surgery/Procedure H&P Update DATE OF PROCEDURE: February 12, 2021 DATE H&P PERFORMED: 02/12/21 H&P UPDATE INFORMATION: I have reviewed H&P completed within last 30 days, I have examined patient prior to procedure, No changes to prior documentation and H&P is in [facility] EMR on date indicated PREOP DIAGNOSIS: Osteomyelitis left foot PLANNED PROCEDURE: Operation Date: 02/12/21 07:00 Proposed Procedures p Ray Resection partial fifth ray [id number] L97.54(Left) - Qunin Duran DPM s poss Tendon Lengthening Foot(Left) - Quinn Duran DPM
--- NOTE | 2021-02-12 06:35 | P.OP_ITS ---
Operative Report Date of procedure: February 12, 2021 Pre-op Diagnosis: Osteomyelitis left foot Post-op diagnosis: same Post-op Findings: Osteomyelitis left fifth metatarsal head and base of proximal phalanx left fifth toe. Procedure Done: Partial fifth ray resection left foot CPT code 01611 and debridement down to and including bone right fifth toe CPT code 37134 Implants: Vancomycin powder, 3-0 Vicryl, 3-0 nylon Specimens removed/disposition: Left fifth metatarsal head sent to microbiology as bone culture for Gram stain and sensitivity. Pathology: none sent Surgeon: Quinn Duran D.P.M. Manager Of Transportation: Tru Anesthesia: MAC Estimated blood loss: Less than 10 mL Tourniquet time: 17 minutes IV fluids: None Urine output: None Complications: None Findings: Devitalized soft tissue and bone down to left fifth metatarsal head and left fifth toe proximal phalanx base. Significant pitting edema to the bilateral lower extremities. Condition: stable Disposition: PACU Brief History: Diabetic ulcer extending to bone left foot subfifth metatarsal head is requested for bone biopsy and debridement surgically will be following up in wound care. Procedure: Under mild sedation the patient was brought to the operating room and remained on the gurney in supine position. A timeout was performed. Anesthesia was then administered by the anesthesia service. Local anesthesia injected by myself consisting of 20 cc total in a reverse Nolen block fashion consisting of one-to-one mixture 1% lidocaine and 0.5% Marcaine plain. Well-padded pneumatic tourniquet applied to the left ankle. The left lower extremity was scrubbed, prepped and draped utilizing normal aseptic technique. No Esmarch bandage utilized for due to infection. Tourniquet was inflated to 250 mmHg. Attention was directed to the dorsal lateral aspect of the left fifth metatarsophalangeal joint where a linear longitudinal incision was made with dissection carried down carefully through subcutaneous tissue down the layer of bone mid diaphysis of the left fifth metatarsal care was taken to retract and preserve neurovascular and tendinous structures. All bleeders were ligated and cauterized as necessary. A transverse osteotomy was performed of the diaphysis of the left fifth metatarsal this was passed from the operative field and sent to microbiology for Gram stain and culture this will act as antibiotic guidance moving forward. The head of the fifth metatarsal was significantly devitalized and had significant osteolysis the cartilage Was completely detached and of dark color and poor density. Incision site was flushed with copious amounts of sterile saline solution. Attention was then directed to the base of the proximal phalanx of the left fifth toe this was also of poor density and color in the debrided down to healthier bone utilizing a rongeur. This was sharp debridement both with pickups, 15 blade and rongeur down to healthier bone that was more appropriate density at the more proximal phalanx of the fifth metatarsal base. Incision site was flushed with copious amounts of sterile saline solution. Vancomycin powder introduced into the incision followed by closure of subcutaneous tissue with 3-0 Vicryl and skin closed with 3-0 nylon. Dressing consisting of Adaptic, sterile 4 x 4, Kerlix, cast padding and Coban was applied. Tourniquet was deflated and a prompt hyperemic response was noted to all 5 digits of the left foot. Patient tolerated the procedure and anesthesia well and was transferred to the PACU with vital signs stable and vascular status intact. Following a period of postoperative monitoring he will be discharged home is to remain protected weightbearing on the left foot may heel touch for transfers. He is to elevate his left foot at all times while at rest. Patient has significant edema to the lower extremities this will likely impede wound healing. The wound of the left foot plantarly was left open the determination to avoid primary closure in effort to allow drainage will require secondary healing appreciate wound care efforts in this. Would like to have the patient follow-up in podiatry clinic next Monday the for nurse visit and will likely remove sutures at the operative site of the left foot 3 weeks postoperatively. Otherwise will follow up in wound clinic at their discretion and frequency. I will prescribe him Bactrim DS to be taken twice daily for 10 days. This will likely need to be adjusted once bone culture yields further results.
[2021-02-12] MEDS: sodium chloride 0.9% 1,000 ML 30 ML IV (06:36)
[2021-02-12 06:38] LABS: Glucose Point of Care 133 mg/dL (70-110)
--- NOTE | 2021-02-12 06:45 | ANES.PREANE2 ---
Pre-Anesthetic Assessment Pre-Anesthetic Assessment: Height/Weight: Height 1.88 m Weight 240.404 kg Temp Pulse Resp BP Pulse Ox 99.2 F 63 20 H 163/66 99 02/12/21 06:08 02/12/21 06:08 02/12/21 06:08 02/12/21 06:08 02/12/21 06:08 Preop Diagnosis: Osteomyelitis left foot Proposed Procedure: Operation Date: 02/12/21 07:00 Proposed Procedures p Ray Resection partial fifth ray [id number] 70314 L97.54(Left) - Quinn Duran DPM s poss Tendon Lengthening Foot(Left) - Quinn Duran DPM Was Beta Parisa taken within 24 hours: N/A Was Clonidine taken within 24 hours: N/A Last intake: Intake Last Liquid Date 02/11/21 Last Liquid Time 18:00 Last Solid Date 02/11/21 Last Solid Time 18:00 Social: Social History: No alcohol and No tobacco Exam: Pre-Anes Outpt Exam: alert, oriented x 3, clear to auscultation bilaterally and regular rate & rhythm Airway: Submandibular: WNL Cervical ROM: WNL MP: 2 Dentition: Chipped and Full Additional comments: Iverson : : Chronic renal Insufficiency Metabolic: Metabolic: DM and Thyroid Musc/skel: Musc/skel: Weakness Comments: Uses a wheelchair Anesthetic Plan: ASA status: 3 Anesthesia: MAC Risk of > 500 ml blood loss (7ml/kg in children): No Meds/Allergies Current Medications: Current Medications Generic Name Dose Route Start Last Admin Trade Name Freq PRN Reason Stop Dose Admin Sodium Chloride 1,000 mls @ 30 ml s/hr 02/12/21 06:00 02/12/21 06:36 Sodium Chloride 0.9% IV 02/13/21 05:59 30 mls/hr .Q24H CRUZ Administration PFSH Anesthesia PFSH: Medical History (Updated 02/08/21 @ 12:47 by Quinn Duran DPM) Fall History of end stage renal disease Hx of type 2 diabetes mellitus Morbid obesity Social History Smoking and tobacco status: never smoked Alcohol intake: never Data Anesthesia Other Labs: Laboratory Results - last 48 hr 02/12/21 06:34 POC Glucose 133 H Cardiac Studies: No Data to Display
[2021-02-12] MEDS: lidocaine 1% INJ 20 mL 15 ML INJECTION (07:21)
[2021-02-12] MEDS: vancomycin 1,000 MG SDV 1000 MG XX (07:22)
[2021-02-12 07:37] VITALS: BP 115/48; PULSE 62; RESP 20; TEMP 37; O2SAT 99
[2021-02-12 07:40] VITALS: BP 124/52; PULSE 60; RESP 15; O2SAT 96
[2021-02-12 07:45] VITALS: BP 123/55; PULSE 58; RESP 16; TEMP 37; O2SAT 97
[2021-02-12 07:56] VITALS: BP 128/56; PULSE 59; RESP 18; TEMP 36.3; O2SAT 95
--- NOTE | 2021-02-12 08:01 | XR_ITS ---
WS: [id number] Left foot, AP and lateral views, 02/12/2021 Clinical Data: post op Comparison: Left foot, 02/08/2021. Findings: The distal half the left fifth metatarsal has been removed. The left fifth toe remains. There is dest ructive change at the base of the left fifth proximal phalanx. There is soft tissue swelling over the operative site. There is lateral subluxation of the second through fifth toes. There is a plantar spur. XR/XR foot LT 2V [id number] Impression: 1. Amputation of the distal portion left fifth metatarsal. 2. Soft tissue swelling over the operative site. 3. Destructive changes at the base of the left fifth toe proximal phalanx.
[2021-02-12 08:50] VITALS: BP 142/64; PULSE 56; RESP 16; TEMP 36.6; O2SAT 99
--- NOTE | 2021-02-12 14:43 | ANE.PACU2 ---
Inpatient post-anesthesia follow up: Airway intact: Yes Vital signs: Temperature 97.8 F Pulse Rate 56 Respiratory Rate 16 Blood Pressure 142/64 Pulse Oximetry 99 Oxygen Delivery Me thod Room Air Oxygen Flow Rate 8 Fraction of Inspir ed Oxygen Hydration adequate: Yes Nausea and vomiting: No Pain level: 1 Mental status: Baseline
== END 2021-02-12 09:18 | disposition home or self-care (01) ==
PROVIDERS: PCP Physician Assistant Medical; Visit Provider Podiatrist Foot & Ankle Surgery
PROC: (CPT 28810; principal; 2021-02-12 07:00)
DX: M86.8X7 Other osteomyelitis, ankle and foot (principal); E11.22 Type 2 diabetes mellitus with diabetic chronic kidney disease; N18.6 End stage renal disease; E66.01 Morbid (severe) obesity due to excess calories; Z68.44 Body mass index [BMI] 60.0-69.9, adult; Z79.4 Long term (current) use of insulin
CPT/HCPCS: 28113; 36416; 73620; 82962; 87070; 87077; 87176; 87186; 87205; J2250; J2704; J3370; J3490; J7030

== ENCOUNTER 2021-02-15 08:03 | Outpatient (CLI) | payer MEDICARE, MEDICAID, SELFPAY | END 2021-02-15 08:04 | disposition home or self-care (01) | LOC: WOUND 08:04 | PROVIDERS: PCP Physician Assistant Medical; Visit Provider Emergency Medicine | DX: E11.621 Type 2 diabetes mellitus with foot ulcer (principal); L97.422 Non-pressure chronic ulcer of left heel and midfoot with fat layer exposed; L97.525 Non-pressure chronic ulcer of other part of left foot with muscle involvement without evidence of necrosis; E11.622 Type 2 diabetes mellitus with other skin ulcer; L97.822 Non-pressure chronic ulcer of other part of left lower leg with fat layer exposed | CPT/HCPCS: 11042; 11045; 99212 ==

== ENCOUNTER → 2021-02-16 09:54 | Day surgery (SDC) | payer MEDICARE, MEDICAID, SELFPAY ==
--- NOTE | 2021-02-16 10:41 | XR_ITS ---
WS: [id number] PORTABLE CHEST HISTORY: Post PICC placement COMPARISON: 10/31/2020 Right-sided PICC line with tip terminating in the mid SVC. No complications. Findings are decreased. No pleural effusion or pneumothorax. Cardiac size: Normal. Mediastinum/Aorta: Normal mediastinum. No osseous abnormality seen. XR/XR chest 1V portable [id number] IMPRESSION: Uncomplicated placement RIGHT PICC line.
[2021-02-16 12:57] LABS: Blood Urea Nitrogen 21 mg/dL (8-23); Glomerular Filtration Rate 43.9 mL/min (90-130)
== END ==
PROVIDERS: Thoracic Surgery (Cardiothoracic Vascular Surgery); PCP Physician Assistant Medical; Visit Provider Nurse Practitioner Family
DX: M86.172 Other acute osteomyelitis, left ankle and foot (principal)
CPT/HCPCS: 36569; 71045; 82565; 84520

== ENCOUNTER 2021-02-22 07:56 | Outpatient (CLI) | payer MEDICARE, MEDICAID, SELFPAY | END 2021-02-22 07:57 | disposition home or self-care (01) | LOC: WOUND 07:57 | PROVIDERS: PCP Physician Assistant Medical; Visit Provider Emergency Medicine | DX: E11.621 Type 2 diabetes mellitus with foot ulcer (principal); L97.422 Non-pressure chronic ulcer of left heel and midfoot with fat layer exposed; L97.525 Non-pressure chronic ulcer of other part of left foot with muscle involvement without evidence of necrosis; E11.622 Type 2 diabetes mellitus with other skin ulcer; L97.822 Non-pressure chronic ulcer of other part of left lower leg with fat layer exposed | CPT/HCPCS: 11042; 11045 ==

== ENCOUNTER 2021-03-09 07:52 | Outpatient (CLI) | payer MEDICARE, MEDICAID, SELFPAY | END 2021-03-09 07:53 | disposition home or self-care (01) | LOC: WOUND 07:53 | PROVIDERS: PCP Physician Assistant Medical; Visit Provider Emergency Medicine | DX: E11.621 Type 2 diabetes mellitus with foot ulcer (principal); L97.422 Non-pressure chronic ulcer of left heel and midfoot with fat layer exposed; L97.522 Non-pressure chronic ulcer of other part of left foot with fat layer exposed; E11.622 Type 2 diabetes mellitus with other skin ulcer; L97.822 Non-pressure chronic ulcer of other part of left lower leg with fat layer exposed | CPT/HCPCS: 11042; 11045 ==

== ENCOUNTER → 2021-03-11 13:05 | Outpatient (BNVA) | payer MEDICARE, MEDICAID, SELFPAY | PROVIDERS: PCP Physician Assistant Medical; Visit Provider Podiatrist Foot & Ankle Surgery | DX: Z47.81 Encounter for orthopedic aftercare following surgical amputation (principal); Z89.422 Acquired absence of other left toe(s) | CPT/HCPCS: 73630 ==

== ENCOUNTER 2021-03-15 08:51 | Outpatient (CLI) | payer MEDICARE, MEDICAID, SELFPAY | END 2021-03-15 08:52 | disposition home or self-care (01) | LOC: WOUND 08:53 | PROVIDERS: PCP Physician Assistant Medical; Visit Provider Emergency Medicine | DX: I96 Gangrene, not elsewhere classified (principal); E11.621 Type 2 diabetes mellitus with foot ulcer; L97.422 Non-pressure chronic ulcer of left heel and midfoot with fat layer exposed; L97.522 Non-pressure chronic ulcer of other part of left foot with fat layer exposed; E11.622 Type 2 diabetes mellitus with other skin ulcer; L97.822 Non-pressure chronic ulcer of other part of left lower leg with fat layer exposed | CPT/HCPCS: 11042; 11045 ==

== ENCOUNTER 2021-03-22 08:20 | Outpatient (CLI) | payer MEDICARE, MEDICAID, SELFPAY | END 2021-03-22 08:21 | disposition home or self-care (01) | LOC: WOUND 08:22 | PROVIDERS: PCP Physician Assistant Medical; Visit Provider Emergency Medicine | DX: E11.621 Type 2 diabetes mellitus with foot ulcer (principal); L97.422 Non-pressure chronic ulcer of left heel and midfoot with fat layer exposed; L97.522 Non-pressure chronic ulcer of other part of left foot with fat layer exposed; E11.622 Type 2 diabetes mellitus with other skin ulcer; L97.822 Non-pressure chronic ulcer of other part of left lower leg with fat layer exposed | CPT/HCPCS: 11042; 11045 ==

== ENCOUNTER 2021-03-29 07:57 | Outpatient (CLI) | payer MEDICARE, MEDICAID, SELFPAY | END 2021-03-29 07:58 | disposition home or self-care (01) | LOC: WOUND 07:58 | PROVIDERS: PCP Physician Assistant Medical; Visit Provider Emergency Medicine | DX: E11.621 Type 2 diabetes mellitus with foot ulcer (principal); L97.421 Non-pressure chronic ulcer of left heel and midfoot limited to breakdown of skin; L97.522 Non-pressure chronic ulcer of other part of left foot with fat layer exposed; E11.622 Type 2 diabetes mellitus with other skin ulcer; L97.822 Non-pressure chronic ulcer of other part of left lower leg with fat layer exposed | CPT/HCPCS: 11042; 11045; 97597 ==

== ENCOUNTER 2021-04-19 07:58 | Outpatient (CLI) | payer MEDICARE, MEDICAID, SELFPAY | END 2021-04-19 07:59 | disposition home or self-care (01) | LOC: WOUND 08:02 | PROVIDERS: PCP Physician Assistant Medical; Visit Provider Emergency Medicine | DX: E11.621 Type 2 diabetes mellitus with foot ulcer (principal); L97.422 Non-pressure chronic ulcer of left heel and midfoot with fat layer exposed; L97.522 Non-pressure chronic ulcer of other part of left foot with fat layer exposed; E11.622 Type 2 diabetes mellitus with other skin ulcer; L97.822 Non-pressure chronic ulcer of other part of left lower leg with fat layer exposed | CPT/HCPCS: 11042; 11045 ==

== ENCOUNTER 2021-06-09 06:00 | Outpatient (RCR) | payer MEDICARE, MEDICAID, SELFPAY | END 2021-06-16 09:00 | disposition home or self-care (01) | LOC: SOT 06:00 | PROVIDERS: PCP Physician Assistant Medical; Referring Provider Physician Assistant Medical; Visit Provider Physician Assistant Medical | DX: R26.9 Unspecified abnormalities of gait and mobility (principal); E66.01 Morbid (severe) obesity due to excess calories; R60.9 Edema, unspecified; M79.661 Pain in right lower leg; M79.662 Pain in left lower leg; L97.509 Non-pressure chronic ulcer of other part of unspecified foot with unspecified severity; E11.22 Type 2 diabetes mellitus with diabetic chronic kidney disease | CPT/HCPCS: 97167; 97530 ==

== ENCOUNTER 2021-08-17 08:19 | Outpatient (CLI) | payer MEDICARE, MEDICAID, SELFPAY | END 2021-08-17 08:20 | disposition home or self-care (01) | LOC: WOUND 08:20 | PROVIDERS: PCP Physician Assistant Medical; Visit Provider Emergency Medicine | DX: I96 Gangrene, not elsewhere classified (principal); I87.2 Venous insufficiency (chronic) (peripheral); L97.822 Non-pressure chronic ulcer of other part of left lower leg with fat layer exposed; L97.811 Non-pressure chronic ulcer of other part of right lower leg limited to breakdown of skin; E11.9 Type 2 diabetes mellitus without complications; L89.622 Pressure ulcer of left heel, stage 2 | CPT/HCPCS: 11042; 11045; 99213; A6253 ==

== ENCOUNTER 2021-08-24 09:03 | Outpatient (CLI) | payer MEDICARE, MEDICAID, SELFPAY | END 2021-08-24 09:04 | disposition home or self-care (01) | LOC: WOUND 09:05 | PROVIDERS: PCP Physician Assistant Medical; Visit Provider Emergency Medicine | DX: I96 Gangrene, not elsewhere classified (principal); E11.622 Type 2 diabetes mellitus with other skin ulcer; I87.2 Venous insufficiency (chronic) (peripheral); L97.822 Non-pressure chronic ulcer of other part of left lower leg with fat layer exposed; L97.811 Non-pressure chronic ulcer of other part of right lower leg limited to breakdown of skin; L89.612 Pressure ulcer of right heel, stage 2 | CPT/HCPCS: 11042; A6251; A6252 ==

== ENCOUNTER 2021-08-31 08:39 | Outpatient (CLI) | payer MEDICARE, MEDICAID, SELFPAY | END 2021-08-31 08:40 | disposition home or self-care (01) | LOC: WOUND 08:40 | PROVIDERS: PCP Physician Assistant Medical; Visit Provider Thoracic Surgery (Cardiothoracic Vascular Surgery) | DX: I96 Gangrene, not elsewhere classified (principal); I87.2 Venous insufficiency (chronic) (peripheral); L97.821 Non-pressure chronic ulcer of other part of left lower leg limited to breakdown of skin; L97.811 Non-pressure chronic ulcer of other part of right lower leg limited to breakdown of skin; L97.422 Non-pressure chronic ulcer of left heel and midfoot with fat layer exposed; E11.621 Type 2 diabetes mellitus with foot ulcer | CPT/HCPCS: 11042; 87070; 87077; 87176; 87186; 87205; 97597; 97598; A6252 ==

== ENCOUNTER 2021-09-07 08:11 | Outpatient (CLI) | payer MEDICARE, MEDICAID, SELFPAY | END 2021-09-07 08:12 | disposition home or self-care (01) | LOC: WOUND 08:12 | PROVIDERS: PCP Physician Assistant Medical; Visit Provider Emergency Medicine | DX: I87.2 Venous insufficiency (chronic) (peripheral) (principal); L97.811 Non-pressure chronic ulcer of other part of right lower leg limited to breakdown of skin; L97.422 Non-pressure chronic ulcer of left heel and midfoot with fat layer exposed; L97.822 Non-pressure chronic ulcer of other part of left lower leg with fat layer exposed; E11.8 Type 2 diabetes mellitus with unspecified complications | CPT/HCPCS: 11042; 11045; 99212; A6252 ==

== ENCOUNTER 2021-09-14 09:35 | Outpatient (CLI) | payer MEDICARE, MEDICAID, SELFPAY | END 2021-09-14 09:36 | disposition home or self-care (01) | LOC: WNDACUTE 12:27 → WOUND 09-15 08:14 | PROVIDERS: PCP Physician Assistant Medical; Visit Provider Emergency Medicine | DX: I87.2 Venous insufficiency (chronic) (peripheral) (principal); L97.811 Non-pressure chronic ulcer of other part of right lower leg limited to breakdown of skin; L97.522 Non-pressure chronic ulcer of other part of left foot with fat layer exposed; L97.822 Non-pressure chronic ulcer of other part of left lower leg with fat layer exposed; E11.622 Type 2 diabetes mellitus with other skin ulcer; I96 Gangrene, not elsewhere classified | CPT/HCPCS: 11042; 11045 ==

== ENCOUNTER → 2021-09-21 08:16 | Outpatient (BNVA) | payer MEDICARE, MEDICAID, SELFPAY | PROVIDERS: PCP Physician Assistant Medical; Visit Provider Nurse Practitioner Family | DX: E11.622 Type 2 diabetes mellitus with other skin ulcer (principal); I87.2 Venous insufficiency (chronic) (peripheral); I96 Gangrene, not elsewhere classified; L97.811 Non-pressure chronic ulcer of other part of right lower leg limited to breakdown of skin; L89.622 Pressure ulcer of left heel, stage 2; L97.822 Non-pressure chronic ulcer of other part of left lower leg with fat layer exposed | CPT/HCPCS: 11042; 11045 ==

== ENCOUNTER → 2021-09-28 08:20 | Outpatient (BNVA) | payer MEDICARE, MEDICAID, SELFPAY | PROVIDERS: PCP Physician Assistant Medical; Visit Provider Emergency Medicine | DX: I87.2 Venous insufficiency (chronic) (peripheral) (principal); E11.622 Type 2 diabetes mellitus with other skin ulcer; L97.811 Non-pressure chronic ulcer of other part of right lower leg limited to breakdown of skin; L89.622 Pressure ulcer of left heel, stage 2; L97.822 Non-pressure chronic ulcer of other part of left lower leg with fat layer exposed; I96 Gangrene, not elsewhere classified; E11.621 Type 2 diabetes mellitus with foot ulcer; Z89.422 Acquired absence of other left toe(s) | CPT/HCPCS: 11042; 11045; 73630; 85025; 99212; A6252 ==

== ENCOUNTER 2021-09-28 09:37 | Outpatient (CLI) | payer MEDICARE, MEDICAID, SELFPAY ==
--- NOTE | 2021-09-28 09:59 | XR_ITS ---
WS: [id number] Exam: XR foot LT min 3V* [id number] Date/Time of Exam: 09/28/2021 9:59 AM Reason For Exam: DIABETES II W/FOOT ULCER Comparison 03/11/2021. There is surgical absence of the distal fifth metatarsal. There is bony resorption involving the a po rtion of the base of the proximal phalanx of the fifth toe as well as the distal fourth third metatar raj heads. No acute fracture. The foot is stabilized in a cast. XR/XR foot LT min 3V* [id number] IMPRESSION: 1. Surgical absence of the distal fifth metatarsal. Bony resorption of the base of the proximal phalanx of the fifth toe as well as the distal third and fourt h metatarsal heads. No significant change.
== END 2021-09-28 09:38 | disposition home or self-care (01) ==
PROVIDERS: Visit Provider Emergency Medicine
DX: E11.621 Type 2 diabetes mellitus with foot ulcer (principal); Z89.422 Acquired absence of other left toe(s)
CPT/HCPCS: 11042; 11045; 73630; 85025; 99212; A6252

== ENCOUNTER → 2021-10-05 08:22 | Outpatient (BNVA) | payer MEDICARE, MEDICAID, SELFPAY | PROVIDERS: Visit Provider Emergency Medicine | DX: I87.2 Venous insufficiency (chronic) (peripheral) (principal); I96 Gangrene, not elsewhere classified; L97.811 Non-pressure chronic ulcer of other part of right lower leg limited to breakdown of skin; L89.622 Pressure ulcer of left heel, stage 2; L97.822 Non-pressure chronic ulcer of other part of left lower leg with fat layer exposed | CPT/HCPCS: 11042; 11045; 29581; A6253 ==

== ENCOUNTER 2021-10-12 11:26 | Outpatient (CLI) | payer MEDICARE, MEDICAID, SELFPAY ==
--- NOTE | 2021-10-12 11:34 | USCV_ITS ---
Kenney Olea Age: 65 Gender: M : 1955 Exam Date: 10/12/2021 12:25 Ordering Phys: Heather Escobar DO Technologist: CLEM Exam Location: [facility] [place] Indication: HISTORY: Pressure Ulcers. PROCEDURES: Bilateral duplex Venous Insufficiency study of the Deep and Superficial systems was carried out according to normal protocol with the patient in supine positon for deep system and dependent position for the superficial system. FINDINGS: TDS pt approx 550lbs. Pt could not tolerate tilting of bed. ?pt a candidate for ablatin due to limitations. No evidence of thrombus in visualized vessels. Reflux present in the Rt popliteal, Prox GSV, Mid GSV, Dist GSV, and GSV BK. No reflux visualized on the left lower extremity at this time. CONCLUSIONS 1. No evidence of DVT in the above-mentioned identifiable veins. 2. Significant venous reflux of greater than 1000 ms was noted in the right popliteal vein. 3. Significant venous reflux of greater than 500 ms was noted in the right greater saphenous vein at the proximal, mid, distal and below- knee segments. These venous segments were measuring anywhere from 0.43-0 0.81 cm in diameter and were at a depth of more than 1 cm from the surface. 4. No significant venous reflux were noted on the left side. Technically very difficult study because of the patient's inability to tolerate venous cough/morbid obesity. Dr Raúl Mckenzie MD [facility] (Electronically Signed) Final Date: 18 October 2021 10:07 S
== END 2021-10-12 11:27 | disposition home or self-care (01) ==
LOC: RAD 11:28
PROVIDERS: Visit Provider Emergency Medicine
DX: I87.2 Venous insufficiency (chronic) (peripheral) (principal); E11.622 Type 2 diabetes mellitus with other skin ulcer; L97.811 Non-pressure chronic ulcer of other part of right lower leg limited to breakdown of skin; L89.622 Pressure ulcer of left heel, stage 2; L97.822 Non-pressure chronic ulcer of other part of left lower leg with fat layer exposed; I96 Gangrene, not elsewhere classified
CPT/HCPCS: 11042; 11045; 93970; 99212; A6252

== ENCOUNTER → 2021-10-19 08:11 | Outpatient (BNVA) | payer MEDICARE, MEDICAID, SELFPAY | PROVIDERS: Visit Provider Emergency Medicine | DX: I87.2 Venous insufficiency (chronic) (peripheral) (principal); I96 Gangrene, not elsewhere classified; E11.622 Type 2 diabetes mellitus with other skin ulcer; L97.811 Non-pressure chronic ulcer of other part of right lower leg limited to breakdown of skin; L89.622 Pressure ulcer of left heel, stage 2; L97.822 Non-pressure chronic ulcer of other part of left lower leg with fat layer exposed | CPT/HCPCS: 11042; 11045 ==

== ENCOUNTER → 2021-10-26 08:15 | Outpatient (BNVA) | payer MEDICARE, MEDICAID, SELFPAY | PROVIDERS: Visit Provider Emergency Medicine | DX: I87.2 Venous insufficiency (chronic) (peripheral) (principal); L97.811 Non-pressure chronic ulcer of other part of right lower leg limited to breakdown of skin; I96 Gangrene, not elsewhere classified; E11.621 Type 2 diabetes mellitus with foot ulcer; L89.622 Pressure ulcer of left heel, stage 2; L97.822 Non-pressure chronic ulcer of other part of left lower leg with fat layer exposed | CPT/HCPCS: 11042; 11045; A6252; A6253 ==

== ENCOUNTER 2021-11-02 13:23 | Outpatient (CLI) | payer MEDICARE, MEDICAID, SELFPAY ==
--- NOTE | 2021-11-02 13:42 | USCV_ITS ---
Kenney Olea Age: 65 Gender: M : 1955 Exam Date: 11/02/2021 13:20 Ordering Phys: Heather Escobar DO Technologist: Exam Location: [facility] – [place] Indication: Pressure ulcer stage 2 RIGHT LEFT Brachial 144.00 mmHg Brachial 160.00 mmHg Pressure (mmHg) Waveform Pressure (mmHg) Waveform Below Knee 183.00 RESORT KEEPER 207.00 DPA 185.00 Post-Exercise Ankle Brachial Index 1.29 156.00 Pre-Exercise Toe Pressure 163.00 0.98 Pre-Exercise Toe/Brachial Index 1.02 FINDINGS Unable to obtain thigh PVR or pressures due to body habitus. Normal resting ANNE and TBI on the left side Normal resting TBI on the right side Noncompressible vessels at the right ankle PVR waveforms showing blunting of the dicrotic notch CONCLUSIONS Features of extensive arterial sclerosis No significant arterial obstruction, based on the above finding Dr Raúl Mckenzie MD [facility] (Electronically Signed) Final Date: 02 Nov 2021 15:50 S
== END 2021-11-02 13:24 | disposition home or self-care (01) ==
PROVIDERS: Visit Provider Emergency Medicine
DX: I70.213 Atherosclerosis of native arteries of extremities with intermittent claudication, bilateral legs (principal); I96 Gangrene, not elsewhere classified; I87.2 Venous insufficiency (chronic) (peripheral); E11.622 Type 2 diabetes mellitus with other skin ulcer; L97.811 Non-pressure chronic ulcer of other part of right lower leg limited to breakdown of skin; E11.621 Type 2 diabetes mellitus with foot ulcer; L97.422 Non-pressure chronic ulcer of left heel and midfoot with fat layer exposed; L97.812 Non-pressure chronic ulcer of other part of right lower leg with fat layer exposed
CPT/HCPCS: 11042; 11045; 93923; A6253

== ENCOUNTER → 2021-11-09 08:50 | Outpatient (BNVA) | payer MEDICARE, MEDICAID, SELFPAY | PROVIDERS: Visit Provider Emergency Medicine | DX: E11.622 Type 2 diabetes mellitus with other skin ulcer (principal); I87.2 Venous insufficiency (chronic) (peripheral); L97.811 Non-pressure chronic ulcer of other part of right lower leg limited to breakdown of skin; L89.622 Pressure ulcer of left heel, stage 2; L97.822 Non-pressure chronic ulcer of other part of left lower leg with fat layer exposed; I96 Gangrene, not elsewhere classified | CPT/HCPCS: 11042; 11045; A6252 ==

== ENCOUNTER → 2021-11-17 07:48 | Outpatient (BNVA) | payer MEDICARE, MEDICAID, SELFPAY | PROVIDERS: Visit Provider Thoracic Surgery (Cardiothoracic Vascular Surgery) | DX: I96 Gangrene, not elsewhere classified (principal); I87.2 Venous insufficiency (chronic) (peripheral); E11.622 Type 2 diabetes mellitus with other skin ulcer; L97.811 Non-pressure chronic ulcer of other part of right lower leg limited to breakdown of skin; L89.622 Pressure ulcer of left heel, stage 2; L97.822 Non-pressure chronic ulcer of other part of left lower leg with fat layer exposed | CPT/HCPCS: 11042; 11045; 97597; 97598; A6252 ==

== ENCOUNTER → 2021-11-24 08:32 | Outpatient (BNVA) | payer MEDICARE, MEDICAID, SELFPAY | PROVIDERS: Visit Provider Thoracic Surgery (Cardiothoracic Vascular Surgery) | DX: I87.2 Venous insufficiency (chronic) (peripheral) (principal); L97.821 Non-pressure chronic ulcer of other part of left lower leg limited to breakdown of skin; L89.892 Pressure ulcer of other site, stage 2; L97.822 Non-pressure chronic ulcer of other part of left lower leg with fat layer exposed; I96 Gangrene, not elsewhere classified | CPT/HCPCS: 11042; 97597; 97598; A6252 ==

== ENCOUNTER → 2021-12-01 08:12 | Outpatient (BNVA) | payer MEDICARE, MEDICAID, SELFPAY | PROVIDERS: Visit Provider Thoracic Surgery (Cardiothoracic Vascular Surgery) | DX: I87.2 Venous insufficiency (chronic) (peripheral) (principal); L97.811 Non-pressure chronic ulcer of other part of right lower leg limited to breakdown of skin; L89.623 Pressure ulcer of left heel, stage 3; I96 Gangrene, not elsewhere classified; E11.622 Type 2 diabetes mellitus with other skin ulcer; L97.822 Non-pressure chronic ulcer of other part of left lower leg with fat layer exposed | CPT/HCPCS: 11042; 97597; 97598; A6253 ==

== ENCOUNTER → 2021-12-08 08:10 | Outpatient (BNVA) | payer MEDICARE, MEDICAID, SELFPAY | PROVIDERS: Visit Provider Nurse Practitioner Family | DX: I87.2 Venous insufficiency (chronic) (peripheral) (principal); E11.622 Type 2 diabetes mellitus with other skin ulcer; L97.811 Non-pressure chronic ulcer of other part of right lower leg limited to breakdown of skin; E11.621 Type 2 diabetes mellitus with foot ulcer; L89.623 Pressure ulcer of left heel, stage 3; L97.822 Non-pressure chronic ulcer of other part of left lower leg with fat layer exposed; I96 Gangrene, not elsewhere classified | CPT/HCPCS: 11042; 11045; A6197; A6253 ==

== ENCOUNTER → 2021-12-15 08:13 | Outpatient (BNVA) | payer MEDICARE, MEDICAID, SELFPAY | PROVIDERS: Visit Provider Nurse Practitioner Family | DX: I87.2 Venous insufficiency (chronic) (peripheral) (principal); E11.622 Type 2 diabetes mellitus with other skin ulcer; L97.811 Non-pressure chronic ulcer of other part of right lower leg limited to breakdown of skin; L89.623 Pressure ulcer of left heel, stage 3; L97.822 Non-pressure chronic ulcer of other part of left lower leg with fat layer exposed | CPT/HCPCS: 11042; 11045; A6197; A6253 ==

== ENCOUNTER 2021-12-24 11:50 | Inpatient (IN) | payer MEDICARE, MEDICAID, SELFPAY ==
[2021-12-24] VITALS (8 sets, daily range): BP systolic 130–150; BP diastolic 45–58; PULSE 64–83; RESP 18–20; TEMP 36.7; O2SAT 86–93
--- NOTE | 2021-12-24 12:09 | ED_ITS ---
Documented by User: Ren Alan MD 01/05/22 23:39 HPI - GI Bleed General: Chief complaint: General Medical Stated complaint: tail bone pain, bloody stool Time Seen by Provider: 12/24/21 11:57 History of Present Illness: Mr. Marie is a 66-year-old gentleman with significant past medical history of end-stage renal disease, type 2 diabetes, peripheral vascular disease with chronic nonhealing ulcers who presents to the emergency department due to blood in stool and low back pain. He reportedly has a history of osteomyelitis however completed course of treatments and reports back pain feels similar. This is worse over the past few days. He primarily has low sacral pain. Additionally has had a few day history of dark red blood per rectum. He does have pain after bowel movements but not during. Denies lightheadedness or dizziness. No other signs of hypovolemia. No abdominal tenderness otherwise. Course of symptoms has worsened. Intensity is moderate. No other specific changes in health, exacerbating, or alleviating factors identified. Onset (ago): day(s) Pain Consistency: constant Severity: moderate Exacerbating factors: bowel movement and movement Associated symptoms: Reports other Review of Systems General: Reports: 10 or more systems reviewed and unremarkable except in HPI and below PFSH ED PFSH: Medical History (Updated 12/29/21 @ 14:49 by Carlitos Murray MD) Atrial fibrillation CHF (congestive heart failure) Fall Generalized weakness Heart failure History of end stage renal disease History of osteomyelitis HTN (hypertension) Hx of chronic arthritis Hx of hyperlipidemia Hx of low back pain Hx of obesity Hx of sleep apnea Hx of type 2 diabetes mellitus Hypertension Morbid obesity Surgical History (Updated 12/29/21 @ 14:49 by Carlitos Murray MD) History of hemicolectomy History of surgery on arm Social History Alcohol intake: never Physical Exam Const: COMMON NORMALS: alert GENERAL APPEARANCE: cooperative and well developed NUTRITIONAL APPEARANCE: obese HENMT: COMMON NORMALS: normocephalic and atraumatic HEAD & SCALP: normocephalic and atraumatic Eye: COMMON NORMALS: conjunctivae normal CONJUNCTIVA: Yes conjunctivae normal SCLERA: sclerae normal Neck/C-Spine: COMMON NORMALS: supple GENERAL: Yes trachea midline Resp: COMMON NORMALS: normal respiratory effort EFFORT & INSPECTION: Yes able to speak in complete sentences Cardio: COMMON NORMALS: regular rate and regular rhythm RATE: regular rate RHYTHM: regular rhythm GI: COMMON NORMALS: Soft to palpation PALPATION: Yes Soft to palpation, Yes Tenderness to palpation present (GI), No Guarding due to palpation present (GI) and No Rigid due to palpation PERCUSSION: normal to percussion Extremity: GENERAL: Yes normal exam except as noted and Yes edema Neuro: COMMON NORMALS: moves all extremities SENSORIUM/ORIENTATION: Yes alert and No Orientation impaired Psych: COMMON NORMALS: mental status grossly normal and Normal thought process present THOUGHT PROCESS: Normal thought process present Course ED course: - Patient was seen and evaluated by me at bedside - Patient placed on cardiac monitors, IV access obtained - Initial evaluation notable for exam as above. Obese. Somewhat ill-appearing. - Labs and xrays personally interpreted by me - Analgesia given. - Labs notable for mild leukocytosis, macrocytic anemia. Metabolic panel with creatinine 1.6, no electrolyte arrangements. CRP is elevated. Urinalysis with hematuria though no evidence of urinary tract infection. - Imaging notable for irregular fluid and air collection seen extending from the 2?3 o'clock position of the perianal region anterior to the left side of the urinary bladder. There is adjacent fat stranding. Radiology reports findings felt to represent perianal vesicular abscess and sinus tract that has not yet matured into the lumen of the bladder to create fistula. Abscess portion adjacent to the anus is 5 x 2.8 cm. - Antibiotics ordered - Attempted to visualize region of abscess however was unable to. There is some degree of serosanguineous drainage though exact source remains unclear. No evidence of Aly's gangrene. - Discussed with Dr. Marina who recommends transfer. - Upon serial reexamination after treatment the patient was transiently improved with analgesia - Based on patient history, evaluation, and testing as interpreted the most likely cause of the patient's condition is perianal abscess with tracking into the intra-abdominal space requiring intervention that exceeds her acute abilities. - The results of ED evaluation were discussed with the patient including plan for transfer due to requirement for level of care not available if discharged to prevent significant worsening/deterioration. - Patient care handed off to Dr. Banuelos pending finding accepting facility. Vital Signs: Vital signs: Vital Signs Temperature 98.0 F 12/28/21 15:21 Pulse Rate 52 L 06/28/22 15:21 Respiratory Rate 16 12/28/21 15:21 Blood Pressure 145/71 12/28/21 15:21 Pulse Oximetry 99 12/28/21 15:21 MDM - GI Bleed Medical Decision Making 66-year-old gentleman presenting due to blood in stool and back pain with history of osteomyelitis. Patient recently on Zyvox. ED evaluation is notable for perianal abscess with tracking intra-abdominal. Discussed with general surgery on-call who recommended transfer for definitive management as the patient exceeds our capabilities given weight. Handed off pending accepting facility. 66-year-old patient with a history of diabetes and atrial fibrillation. He was checked out to me at shift change by Dr. Alan. This patient is a perirectal abscess with what appears to be a fistulous tract towards his bladder. There is some air either next to his bladder wall, or abutting it. His white blood cell count is 10. His CRP is 50. His creatinine is baseline 1.6. His vitals been normal. We reached out to multiple facilities regarding potential transfer, as we do not have urology coverage, interventional radiology coverage, or adequate surgical capabilities for this gentleman. He does weigh 530 pounds which complicates the situation. So far, we have not found a facility with appropriate coverage or bed. 12/25/21@0421: We have been in contact with [facility], who is excepted the patient pending bed availability. They state beds will be available later this morning. He will be set up to go by ground transfer. He is continued to receive vancomycin and Zosyn for coverage as well as some maintenance fluid his vital signs remained stable. Dr. Gunter accepts. Medical Records I reviewed the patient's medical records. Lab Data I reviewed the patient's lab results. : 12/28/21 05:27 12/28/21 05:27 Radiology Impressions Abdomen/Pelvis CT 12/24/21 13:25 IMPRESSION: 1. Ventral abdominal wall hernia contains small bowel but is without obstruction or inflammation. 2. Irregular fluid and air collection seen extending from the 2-3 o'clock position of the perianal region anterior to the left side of the urinary bladder. Adjacent fatty stranding is seen. Findings felt to represent a perianal vesicular abscess and sinus tract which has not yet ruptured into the lumen of the bladder to create a fistula. Abscess portion adjacent to the anus measures 5.0 x 2.[address] 12/24/21 13:25 IMPRESSION: 1. L4-S1 degenerative disc disease is noted with vacuum phenomenon. Osteophytes are noted extending from the vertebrae. No acute spinal pathology is detected. Moderate narrowing of the neural foramina is noted bilaterally at these levels. 2. Degenerative changes as described above but no acute pathology detected. Laboratory Results WBC 10.3 10^3/uL (4.0-10.0) H 12/24/21 10:50 RBC 3.66 10^6/uL (4.1-5.3) L 12/24/21 10:50 Hgb 10.6 g/dL (11.7-16.6) L 12/24/21 10:50 Hct 34.8 % (42.0-52.0) L 12/24/21 10:50 MCV 95.1 fl (80-94) H 12/24/21 10:50 MCH 29.0 pg (28.0-34.0) 12/24/21 10:50 MCHC 30.5 g/dL (30.0-36.0) 12/24/21 10:50 RDW 14.9 % (12.1-15.1) 12/24/21 10:50 Plt Count 271 10^3/cmm (130-400) 12/24/21 10:50 MPV 8.4 fL (7.4-10.4) 12/24/21 10:50 Neut % (Auto) 74.9 % 12/24/21 10:50 Lymph % (Auto) 13.6 % 12/24/21 10:50 [place] % (Auto) 9.0 % 12/24/21 10:50 Eos % (Auto) 0.9 % 12/24/21 10:50 Baso % (Auto) 0.7 % 12/24/21 10:50 Neut # (Auto) 7.73 10^3/uL (1.8-7.7) H 12/24/21 10:50 Lymph # (Auto) 1.4 10^3/uL (0.8-4.8) 12/24/21 10:50 [place] # (Auto) 0.9 10^3/uL (0.2-0.9) 12/24/21 10:50 Eos # (Auto) 0.1 10^3/uL (0.0-0.8) 12/24/21 10:50 Baso # (Auto) 0.1 10^3/uL (0.0-0.1) 12/24/21 10:50 Nucleated RBC % (auto) 0 % 12/24/21 10:50 Nucleated RBCs # 0.0 /100WBC 12/24/21 10:50 ESR 70 mm/hr (0-10) H 12/24/21 10:50 PT 17.20 SECONDS (12.1-14.9) H 12/24/21 13:15 INR 1.37 (0.8-1.2) H 12/24/21 13:15 Sodium 137 mmol/L (136-145) 12/24/21 10:50 Potassium 4.0 mmol/L (3.5-5.1) 12/24/21 10:50 Chloride 99 mmol/L (98-107) 12/24/21 10:50 Carbon Dioxide 24 mmol/L (22-29) 12/24/21 10:50 Anion Gap 18.0 (5-19) 12/24/21 10:50 BUN 21 mg/dL (8-23) 12/24/21 10:50 Creatinine 1.6 mg/dL (0.7-1.2) H 12/24/21 10:50 GFR Calculation 43.7 mL/min (90-130) L 12/24/21 10:50 Glucose 160 mg/dL (65-115) H 12/24/21 10:50 POC Glucose 167 mg/dL (70-110) H 12/25/21 11:56 Calculated Osmolality 290 mOsm/kg (285-295) 12/24/21 10:50 Calcium 9.0 mg/dL (8.5-10.5) 12/24/21 10:50 Total Bilirubin 0.3 mg/dL (0.15-1.2) 12/24/21 10:50 AST 10 U/L (0-40) 12/24/21 10:50 ALT 11 U/L (0-41) 12/24/21 10:50 Alkaline Phosphatase 59 IU/L (40-130) 12/24/21 10:50 C-Reactive Protein 49.6 mg/L (0.0-4.9) H 12/24/21 10:50 Total Protein 7.8 g/dL (6.6-8.7) 12/24/21 10:50 Albumin 4.1 g/dL (3.5-5.2) 12/24/21 10:50 Globulin 3.7 g/dL (1.3-4.6) 12/24/21 10:50 Urine Color Yellow (Yellow) 12/24/21 16:10 Urine Appearance Clear (CLEAR) 12/24/21 16:10 Urine pH 5 (5-7) 12/24/21 16:10 Ur Specific [place] 1.005 (1.005-1.030) 12/24/21 16:10 Urine Protein Neg (Negative) 12/24/21 16:10 Urine Glucose (UA) Norm (Normal) 12/24/21 16:10 Urine Ketones Negative (Negative) 12/24/21 16:10 Urine Blood 2+ (Negative) H 12/24/21 16:10 Urine Nitrate Negative (Negative) 12/24/21 16:10 Urine Bilirubin Neg (Negative) 12/24/21 16:10 Urine Urobilinogen Norm mg/dL (Negative) 12/24/21 16:10 Ur Leukocyte Esterase Negative (Negative) 12/24/21 16:10 Urine RBC None /hpf (0-2) 12/24/21 16:10 Urine WBC None /hpf (0-5) 12/24/21 16:10 Ur Squamous Epith Cells 0-4 /hpf (0-5) H 12/24/21 16:10 Amorphous Sediment Not Reportable 12/24/21 16:10 Urine Bacteria None /hpf (NONE) 12/24/21 16:10 SARS-CoV-2 Ag (Rapid) Negative (Negative) 12/24/21 18:57 Misc Test Reference Cancelled 12/24/21 10:50 Discharge Plan Discharge Patient Disposition: Admitted As Inpatient Admit Provider: Jaspreet Ramirez Clinical Impression: Abscess, perirectal Condition: Stable Discharge Diet: Cardiac and Diabetic Discharge Activity: Resume usual activity and Increase activity as tolerated Sign Out Sign Out Data: Patient Sign Out occurred on 12/25/21 at 06:13. Patient's care was discussed, and care was transferred from to Ren Alan MD. Coding Level of Care Code ED Electronic [employer] Technical for Chg Fwd Exam Comprehensive Documented by User: David Banuelos DO 12/25/21 04:24 HPI - GI Bleed General: Chief complaint: General Medical Stated complaint: tail bone pain, bloody stool Time Seen by Provider: 12/24/21 11:57 PFSH ED PFSH: Medical History (Updated 12/29/21 @ 14:49 by Carlitos Murray MD) Atrial fibrillation CHF (congestive heart failure) Fall Generalized weakness Heart failure History of end stage renal disease History of osteomyelitis HTN (hypertension) Hx of chronic arthritis Hx of hyperlipidemia Hx of low back pain Hx of obesity Hx of sleep apnea Hx of type 2 diabetes mellitus Hypertension Morbid obesity Surgical History (Updated 12/29/21 @ 14:49 by Carlitos Murray MD) History of hemicolectomy History of surgery on arm Social History Alcohol intake: never Course Vital Signs: Vital signs: Vital Signs Temperature 98.0 F 12/28/21 15:21 Pulse Rate 52 L 12/28/21 15:21 Respiratory Rate 16 12/28/21 15:21 Blood Pressure 145/71 12/28/21 15:21 Pulse Oximetry 99 12/28/21 15:21 MDM - GI Bleed Medical Decision Making 66-year-old patient with a history of diabetes and atrial fibrillation. He was checked out to me at shift change by Dr. Alan. This patient is a perirectal abscess with what appears to be a fistulous tract towards his bladder. There is some air either next to his bladder wall, or abutting it. His white blood cell count is 10. His CRP is 50. His creatinine is baseline 1.6. His vitals been normal. We reached out to multiple facilities regarding potential transfer, as we do not have urology coverage, interventional radiology coverage, or adequate surgical capabilities for this gentleman. He does weigh 530 pounds which complicates the situation. So far, we have not found a facility with appropriate coverage or bed. 12/25/21@0421: We have been in contact with [facility], who is excepted the patient pending bed availability. They state beds will be available later this morning. He will be set up to go by ground transfer. He is continued to receive vancomycin and Zosyn for coverage as well as some maintenance fluid his vital signs remained stable. Dr. Gunter accepts. Lab Data : 12/28/21 05:27 12/28/21 05:27 Radiology Impressions Abdomen/Pelvis CT 12/24/21 13:25 IMPRESSION: 1. Ventral abdominal wall hernia contains small bowel but is without obstruction or inflammation. 2. Irregular fluid and air collection seen extending from the 2-3 o'clock position of the perianal region anterior to the left side of the urinary bladder. Adjacent fatty stranding is seen. Findings felt to represent a perianal vesicular abscess and sinus tract which has not yet ruptured into the lumen of the bladder to create a fistula. Abscess portion adjacent to the anus measures 5.0 x 2.[address] 12/24/21 13:25
[2021-12-24 13:02] LABS: Basophils # 0.1 10^3/uL (0.0-0.1); Basophils % 0.7 %; Eosinophils # 0.1 10^3/uL (0.0-0.8); Eosinophils % 0.9 %; Hematocrit 34.8 % (42.0-52.0); Hemoglobin 10.6 g/dL (11.7-16.6); Lymphocytes # 1.4 10^3/uL (0.8-4.8); Lymphocytes % 13.6 %; Mean Corpuscular HGB Conc 30.5 g/dL (30.0-36.0); Mean Corpuscular Volume 95.1 fl (80-94); Mean Platelet Volume 8.4 fL (7.4-10.4); Monocytes # 0.9 10^3/uL (0.2-0.9); Neutrophils # 7.73 10^3/uL (1.8-7.7); Neutrophils % 74.9 %; Nucleated Red Blood Cells % 0 %; Platelet Count 271 10^3/cmm (130-400); Red Blood Count 3.66 10^6/uL (4.1-5.3); Red Cell Distribution Width 14.9 % (12.1-15.1); White Blood Count 10.3 10^3/uL (4.0-10.0)
[2021-12-24 13:12] LABS: Alanine Aminotransferase 11 U/L (0-41); Albumin Level 4.1 g/dL (3.5-5.2); Alkaline Phosphatase 59 IU/L (40-130); Aspartate Amino Transferase 10 U/L (0-40); Blood Urea Nitrogen 21 mg/dL (8-23); C Reactive Protein 49.6 mg/L (0.0-4.9); Carbon Dioxide 24 mmol/L (22-29); Chloride 99 mmol/L (98-107); Globulin 3.7 g/dL (1.3-4.6); Glomerular Filtration Rate 43.7 mL/min (90-130); Glucose 160 mg/dL (65-115); Osmolality Calculated 290 mOsm/kg (285-295); Sodium 137 mmol/L (136-145); Total Bilirubin 0.3 mg/dL (0.15-1.2); Total Protein 7.8 g/dL (6.6-8.7)
[2021-12-24] MEDS: morphine 4 mg/mL SDV 1 mL IVP ×2 (13:17→18:24)
--- NOTE | 2021-12-24 13:25 | CTR_ITS ---
PROCEDURE INFORMATION: Exam: CT Lumbar Spine Without Contrast Exam date and time: 12/24/2021 2:00 PM Age: 66 years old Clinical indication: Low back pain; Additional info: HX osteo, increasing back pain TECHNIQUE: Imaging protocol: Computed tomography of the lumbar spine without contrast. Total images: 288 Radiation optimization: All CT scans at this facility use at least one of these dose optimization techniques: automated exposure control; mA and/or kV adjustment per patient size (includes targeted exams where dose is matched to clinical indication); or iterative reconstruction. COMPARISON: No relevant prior studies available. RADIATION DOSE METRICS: Total DLP (mGy-cm): 2903.86 FINDINGS: Bones/joints: Vertebral body heights are maintained. No evidence of spondylolysis nor spondylolisthesis. Discs/Spinal canal/Neural foramina: L4-S1 degenerative disc disease is noted with vacuum phenomenon. Osteophytes are noted extending from the vertebrae. No acute spinal pathology is detected. Moderate narrowing of the neural foramina is noted bilaterally at these levels. Soft tissues: Unremarkable. CT/CT lumbar spine wo con* [id number] IMPRESSION: 1. L4-S1 degenerative disc disease is noted with vacuum phenomenon. Osteophytes are noted extending from the vertebrae. No acute spinal pathology is detected. Moderate narrowing of the neural foramina is noted bilaterally at these levels. 2. Degenerative changes as described above but no acute pathology detected.
--- NOTE | 2021-12-24 13:25 | CTR_ITS ---
PROCEDURE INFORMATION: Exam: CT Abdomen And Pelvis With Contrast Exam date and time: 12/24/2021 2:04 PM Age: 66 years old Clinical indication: Abdominal pain; Additional info: Gi bleed TECHNIQUE: Imaging protocol: Computed tomography of the abdomen and pelvis with contrast. Total images: 24 Radiation optimization: All CT scans at this facility use at least one of these dose optimization techniques: automated exposure control; mA and/or kV adjustment per patient size (includes targeted exams where dose is matched to clinical indication); or iterative reconstruction. Contrast material: OMNI 350; Contrast volume: 95 ml; Contrast route: INTRAVENOUS (IV); COMPARISON: CT lumbar spine wo con* [id number] 12/24/2021 2:00 PM RADIATION DOSE METRICS: Total DLP (mGy-cm): 1895.77 FINDINGS: Liver: Normal. No mass. Gallbladder and bile ducts: Normal. No calcified stones. No ductal dilation. Pancreas: Normal. No ductal dilation. Spleen: Normal. No splenomegaly. Adrenal glands: Normal. No mass. Kidneys and ureters: Normal. No hydronephrosis. Stomach and bowel: Unremarkable. No obstruction. No mucosal thickening. Appendix: No evidence of appendicitis. Intraperitoneal space: Unremarkable. No free air. No significant fluid collection. Vasculature: A retroaortic left renal vein is incidentally noted. Lymph nodes: Unremarkable. No enlarged lymph nodes. Urinary bladder: Irregular fluid and air collection seen extending from the 2-3 o'clock position of the perianal region anterior to the left side of the urinary bladder. Adjacent fatty stranding is seen. Findings felt to represent a perianal vesicular abscess and sinus tract which has not yet ruptured into the lumen of the bladder to create a fistula. Abscess portion adjacent to the anus measures 5.0 x 2.8 cm. Reproductive: Unremarkable as visualized. Bones/joints: Unremarkable. No acute fracture. Soft tissues: Ventral abdominal wall hernia contains small bowel but is without obstruction or inflammation. CT/CT abdomen pelvis w con* [id number] IMPRESSION: 1. Ventral abdominal wall hernia contains small bowel but is without obstruction or inflammation. 2. Irregular fluid and air collection seen extending from the 2-3 o'clock position of the perianal region anterior to the left side of the urinary bladder. Adjacent fatty stranding is seen. Findings felt to represent a perianal vesicular abscess and sinus tract which has not yet ruptured into the lumen of the bladder to create a fistula. Abscess portion adjacent to the anus measures 5.0 x 2.8 cm.
[2021-12-24 13:32] LABS: INR 1.37 (0.8-1.2)
[2021-12-24] MEDS: iodixanol 320 mg/mL 100mL Btl IV (14:06)
[2021-12-24 18:46] LABS: Add Urine Culture? No; Add Urine Microscopic? YES; Bilirubin Urine Neg (Negative); Blood Urine 2+ (Negative); Glucose Urine UA Norm (Normal); Ketones Urine Negative (Negative); Leukocyte Esterase Urine Negative (Negative); Nitrate Urine Negative (Negative); Protein Urine Neg (Negative); Specific Gravity, Urine 1.005 (1.005-1.030); Squamous Epithelial Cell Urine 0-4 /hpf (0-5); Urine Appearance Clear (CLEAR); Urine Color Yellow (Yellow); Urobilinogen Urine Norm (Negative); pH Urine 5 (5-7)
[2021-12-24 19:24] LABS: SARS Covid-2 Antigen Negative (Negative)
[2021-12-24] MEDS: piperacillin-tazobactam 4.5 GM in sodium chloride 0.9% (plus) 50 ML IV (23:43)
[2021-12-25] VITALS (13 sets, daily range): BP systolic 118–173; BP diastolic 46–90; PULSE 53–79; RESP 14–22; TEMP 37.1; O2SAT 96–100; BMI 68.0
[2021-12-25] MEDS: acetaminophen 500 mg Tablet 1000 MG PO (00:44)
[2021-12-25] MEDS: piperacillin-tazobactam 4.5 GM in sodium chloride 0.9% (plus) 50 ML IV ×3 (04:20→19:36)
[2021-12-25] MEDS: fentaNYL 50 mcg/mL INJ 2mL 75 MCG IVP ×2 (04:53→13:07)
[2021-12-25] MEDS: sodium chloride 0.9% 1,000 ML 150 ML IV ×3 (04:54→19:31)
[2021-12-25] MEDS: acetaminophen 1,000 MG/100 ML PIGGYBACK 400 MG IV (08:20)
--- NOTE | 2021-12-25 08:41 | PC.NURSE ---
Shift report received from ROSITA Aguayo. Pt resting in bed, IV fluids continued. Continuous cardiac, BP, SpO2 monitoring continued.
[2021-12-25 12:00] LABS: Glucose Point of Care 167 mg/dL (70-110)
[2021-12-25] MEDS: ondansetron 2 mg/ML SDV 2 mL 4 MG IVP ×2 (16:02→20:37)
[2021-12-25] MEDS: HYDROmorphone 1 mg/mL INJ 1 mL 0.5 MG IVP (16:09)
--- NOTE | 2021-12-25 16:52 | PC.NURSE ---
Vitals changed to Q1H per verbal order from Dr. Alan
--- NOTE | 2021-12-25 23:19 | P.HP_ITS ---
Providers/Chief Complaint Admitting Physician: Jaspreet Ramirez MD Chief Complaint: tail bone pain, bloody stool History of Present Illness Kenney Olea is a 66 year old male with past medical history of hypertension diabetes morbid obesity CKD stage stage III , A. fib, ?peripheral vascular disease with chronic nonhealing ulcers?came in due to blood in stool and low back pain.?Patient has history of osteomyelitis for which she has completed the treatment course. But lately in the last few days his lower back pain has been bad pain is primarily in the sacral region, he is also complaining of couple of days of dark red blood per rectum. He does have pain after bowel movements.Denies lightheadedness or dizziness. Upon arrival in the ER he was worked up for above mentioned complaint: Pertinent imaging studies: Abdomen/Pelvis CT? 12/24/21 13:25 IMPRESSION: 1. Ventral abdominal wall hernia contains small bowel but is without obstruction or inflammation. 2. Irregular fluid and air collection seen extending from the 2-3 o'clock position of the perianal region anterior to the left side of the urinary bladder. Adjacent fatty stranding is seen. Findings felt to represent a perianal vesicular abscess and sinus tract which has not yet ruptured into the lumen of the bladder to create a fistula. Abscess portion adjacent to the anus measures 5.0 x 2.8 cm. ? Lumbar Spine CT? 12/24/21 13:25 IMPRESSION: 1. L4-S1 degenerative disc disease is noted with vacuum phenomenon. Osteophytes are noted extending from the vertebrae. No acute spinal pathology is detected. Moderate narrowing of the neural foramina is noted bilaterally at these levels. 2. Degenerative changes as described above but no acute pathology detected. Pertinent labs: WBC 10.3 , H&H:10.6/ 34 , plt : 271 , serum sodium 137 , serum potassium: 4 , BUN and serum creatinine: 21/1.6 , CRP 49 Review of Systems General: Reports: 10 or more systems reviewed and unremarkable except in HPI and below Narrative: 70-year-old currently not in acute distress being admitted for chest pain evaluation Const: Denies: fever(s), chills, body aches, change in appetite or diaphoresis Card: Denies: palpitations, edema, swelling of feet/ankles, dyspnea on exertion, orthopnea or leg pain with exertion Resp: Denies: dyspnea, productive cough, wheezing or pain on inspiration GI: Denies: abdominal pain, nausea, vomiting, diarrhea or constipation : Denies: flank pain or difficulty urinating Musc: Denies: back pain, extremity pain or extremity swelling Neuro: Denies: headache(s), difficulty walking or confusion Medications/Allergies Home Medications Medication Instructions Recorded Confirmed Last Taken Type apixaban 5 mg tablet (Eliquis) 5 mg PO BID@0600,1700 07/15/20 12/24/21 12/24/21 History gabapentin 300 mg capsule 900 mg PO BEDTIME@2100 07/15/20 12/24/21 12/23/21 History insulin glargine 100 unit/mL (3 70 unit SUBCUT BID@0600,1700 07/15/20 12/24/21 12/24/21 History mL) subcutaneous pen (Lantus Solostar U-100 Insulin) levothyroxine 25 mcg tablet 25 mcg PO DAILY@0600 07/15/20 12/24/21 12/24/21 History metoprolol tartrate 25 mg tablet 25 mg PO BID@0600,1700 07/15/20 12/24/2112/02 History ferrous sulfate 325 mg (65 mg 325 mg PO DAILY 12/09/20 12/24/21 12/24/21 History iron) tablet (iron) amiodarone 200 mg tablet 200 mg PO BID 12/24/21 12/24/21 12/24/21 History furosemide 20 mg tablet (Lasix) 20 mg PO DAILY 12/24/21 12/24/21 12/24/21 History Allergies Allergy/AdvReac Type Severity Reaction Status Date / Time aspirin Allergy Unknown Verified 03/11/21 13:14 Vicodin Allergy Unknown Unknown Uncoded 05/18/21 13:17 Victoza AdvReac Mild ADR-Nausea Uncoded 09/01/21 08:18 PFSH Acute 2 PFSH: Medical History Fall History of end stage renal disease Hx of type 2 diabetes mellitus Morbid obesity Social History Alcohol intake: never Vitals/I&O/Wt Last Vital Signs Temp 98.1 F 12/24/21 12:14 Pulse 73 06/25/22 20:39 Resp 18 12/25/21 20:39 BP 172/70 12/25/21 20:39 Pulse Ox 100 12/25/21 20:39 12/25/21 12/25/21 12/26/21 14:59 22:59 06:59 Intake Total 2650 / 2650 Balance 2650 / 2650 Weight last 48 hrs Weight 240.404 kg Physical Exam Const: COMMON NORMALS: patient oriented x3 HENMT: COMMON NORMALS: normocephalic and atraumatic HEAD & SCALP: normocephalic and atraumatic Eye: GENERAL EYE: appearance normal, both eyes and all related structures Chest: CHEST: Yes Symmetrical chest wall rise Resp: COMMON NORMALS: clear to auscultation bilaterally EFFORT & INSPECTION: Yes symmetric chest movement AUSCULTATION: clear to auscultation bilaterally Cardio: COMMON NORMALS: regular rate, regular rhythm, S1 normal heart sound present, S2 normal heart sound present, No gallops present (Cardio), No murmurs present (Cardio), No rub (Cardio) and Peripheral pulses 2+ throughout RATE: regular rate RHYTHM: regular rhythm HEART SOUNDS: S1 normal heart sound present and S2 normal heart sound present PERIPHERAL PULSES: Peripheral pulses 2+ throughout GI: COMMON NORMALS: Normal to inspection, nondistended, normoactive bowel sounds present, Soft to palpation, non-tender, No hepatosplenomegaly present and no masses AUSCULTATION: Yes normoactive bowel sounds PALPATION: Yes Soft to palpation and Yes No hepatosplenomegaly present RECTAL EXAM: Yes deferred Extremity: COMMON NORMALS: no clubbing, cyanosis or edema and no pedal edema Neuro: COMMON NORMALS: patient oriented x3 Data : 12/26/21 02:30 12/26/21 02:30 A&P Assessment and plan (1) Abscess, perirectal: Status: Acute (2) Hx of type 2 diabetes mellitus: Status: Acute (3) PVD (peripheral vascular disease): Status: Acute (4) Atrial fibrillation: Status: Acute (5) Hypertension: Status: Acute (6) Heart failure: Status: Acute Plan Kenney Olea is a 66 year old male with past medical history of hypertension diabetes morbid obesity CKD stage stage III , A. fib, ?peripheral vascular disease with chronic nonhealing ulcers?came in due to blood in stool and low back pain. Assessment: perianal vesicular abscess with sinus tract which has not yet ruptured into the lumen of the bladder to create a fistula.? Hypertension Hypothyroidism Diabetes A. fib Morbid obesity Plan: Follow blood culture Continue Vanco and Zosyn Continue Lantus 35 units SQ twice daily, LDSSI Continue levothyroxine Continue amiodarone and metoprolol Will hold on Eliquis for now as the patient is complaining of blood in the stool, monitor H&H, Patient has been accepted at [facility], for further management by Dr. Gunter, currently awaiting bed. CODE STATUS: Full code DVT prophylaxis: On heparin Attestations Medical Necessity Statement*: Patient is in hospital for management of perirectal abscess, need for IV antibiotic, anticipated length of stay greater than 2 midnight Time Spent in Patient Care: Greater than 35 minutes (>than 50% of time spent in counselling and/or direct pt care on unit) . 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
[2021-12-26] VITALS (15 sets, daily range): BP systolic 107–163; BP diastolic 53–66; PULSE 59–77; RESP 16–20; TEMP 36.8–37.1; O2SAT 92–100
[2021-12-26] MEDS: heparin 5,000 unit/mL INJ 1 mL 5000 UNIT SUBCUT ×3 (00:44→14:15)
[2021-12-26] MEDS: sodium chloride 0.9% 1,000 ML 150 ML IV (00:45)
[2021-12-26 03:09] LABS: Basophils % 0.3 %; Eosinophils # 0.2 10^3/uL (0.0-0.8); Eosinophils % 1.3 %; Hemoglobin 8.7 g/dL (11.7-16.6); Lymphocytes # 0.9 10^3/uL (0.8-4.8); Lymphocytes % 7.8 %; Mean Corpuscular HGB Conc 31.1 g/dL (30.0-36.0); Mean Corpuscular Hemoglobin 28.6 pg (28.0-34.0); Mean Corpuscular Volume 92.1 fl (80-94); Mean Platelet Volume 8.2 fL (7.4-10.4); Neutrophils % 80.8 %; Nucleated Red Blood Cells % 0 %; Platelet Count 214 10^3/cmm (130-400); Red Blood Count 3.04 10^6/uL (4.1-5.3); Red Cell Distribution Width 15.2 % (12.1-15.1); White Blood Count 11.6 10^3/uL (4.0-10.0)
[2021-12-26 03:28] LABS: Lactic Sepsis W/Reflex 0.9 mmol/L (0.5-2.2)
[2021-12-26] MEDS: piperacillin-tazobactam 3.375 GM in sodium chloride 0.9% (plus) 50 ML IV ×3 (03:31→20:40)
[2021-12-26 03:36] LABS: Anion Gap 14.1 (5-19); Blood Urea Nitrogen 16 mg/dL (8-23); Calcium 8.4 mg/dL (8.5-10.5); Carbon Dioxide 25 mmol/L (22-29); Chloride 103 mmol/L (98-107); Glomerular Filtration Rate 47.1 mL/min (90-130); Glucose 161 mg/dL (65-115); Osmolality Calculated 291 mOsm/kg (285-295); Potassium 4.1 mmol/L (3.5-5.1); Sodium 138 mmol/L (136-145)
[2021-12-26 03:42] LABS: Procalcitonin 0.07 ng/mL (0-0.5)
[2021-12-26] MEDS: morphine 4 mg/mL SDV 1 mL 2 MG IVP ×3 (03:59→20:51)
[2021-12-26 06:45] LABS: Glucose Point of Care 172 mg/dL (70-110)
[2021-12-26 06:49] LABS: Vancomycin Trough 22.7 ug/mL (10-15)
[2021-12-26] MEDS: metoprolol tartrate 25 mg Tablet PO ×2 (06:57→17:56)
[2021-12-26] MEDS: levothyroxine 25 mcg Tablet PO (06:57)
[2021-12-26] MEDS: insulin glargine 100 units/1 mL 35 UNIT SUBCUT (06:58)
[2021-12-26] MEDS: amiodarone 200 mg Tablet PO ×2 (08:59→17:56)
[2021-12-26] MEDS: ferrous sulfate EC 325 mg Tablet PO (08:59)
[2021-12-26] MEDS: HYDROmorphone 1 mg/mL INJ 1 mL 0.5 MG IVP (11:43)
[2021-12-26] MEDS: sodium chloride 0.9% 1,000 ML 75 ML IV (11:44)
--- NOTE | 2021-12-26 13:37 | PM.PN ---
Subjective Subjective: Seen this AM. States he is in pain and morphine not helping very much. Is CPAP dependent at night time Vitals/I&O/Wt Last Vital Signs Temp 98.2 F 12/26/21 12:00 Pulse 60 12/26/21 12:00 Resp 16 12/26/21 12:00 BP 113/53 12/26/21 12:00 Pulse Ox 97 12/26/21 12:00 12/25/21 12/26/21 12/26/21 22:59 06:59 14:59 Intake Total 2200 / 4850 960 / 960 Output Total 300 / 300 Balance 1900 / 4550 960 / 960 Weight last 48 hrs Weight 248.569 kg Weight 240.404 kg Weight 240.404 kg Physical Exam Narrative: Morbidly obese large male laying in bed with CPAP on, He took it off to talk to me NC/AT, EOMI, Large neck Clear to auscultation anterior lung ty. No wheezes or ronchi Soft, non tender, visceral obesity B/L LE edema generalized, wearing compression stockings Data : 12/26/21 02:30 12/26/21 02:30 Micro: Microbiology 12/26/21 05:56 Blood Culture - Preliminary Blood SPECIMEN COLLECTED 12/26/21 02:30 Blood Culture - Preliminary Blood SPECIMEN COLLECTED A&P Assessment and plan (1) Heart failure: Status: Acute (2) Hypertension: Status: Acute (3) Atrial fibrillation: Status: Acute (4) Abscess, perirectal: Status: Acute (5) History of end stage renal disease: Status: Acute (6) Hx of type 2 diabetes mellitus: Status: Acute (7) Venous ulcer of leg: Status: Acute Qualifiers: Laterality: left Qualified Code(s): I83.029 - Varicose veins of left lower extremity with ulcer of unspecified site; L97.929 - Non-pressure chronic ulcer of unspecified part of left lower leg with unspecified severity (8) PVD (peripheral vascular disease): Status: Acute (9) Non-pressure chronic ulcer of other part of left foot with necrosis of bone: Status: Acute (10) Generalized weakness: Status: Acute Plan Kenney Olea is a 66 year old male with past medical history of hypertension diabetes morbid obesity CKD stage stage III , A. fib, ?peripheral vascular disease with chronic nonhealing ulcers?came in? due to blood in stool and low back pain. Assessment: perianal vesicular abscess with sinus tract which has not yet ruptured into the lumen of the bladder to create a fistula.? Hypertension Hypothyroidism Diabetes A. fib Morbid obesity Plan: Follow blood culture Continue Vanco and Zosyn Continue Lantus 35 units SQ twice daily, LDSSI Continue levothyroxine Continue amiodarone and metoprolol Will hold on Eliquis for now as the patient is complaining of blood in the stool, monitor H&H, [facility] by Dr. [facility], currently awaiting bed. CODE STATUS: Full code DVT prophylaxis: On heparin Awaiting bed placement Attestations Medical Necessity Statement*: Patient is? 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
[2021-12-26 18:02] LABS: Glucose Point of Care 159 mg/dL (70-110)
[2021-12-26] MEDS: gabapentin 300 mg Capsule 900 MG PO (22:14)
[2021-12-27] VITALS (12 sets, daily range): BP systolic 130–169; BP diastolic 63–78; PULSE 55–82; RESP 17–24; TEMP 36.6–37.6; O2SAT 90–99
[2021-12-27] MEDS: heparin 5,000 unit/mL INJ 1 mL 5000 UNIT SUBCUT ×3 (00:38→16:06)
[2021-12-27] MEDS: sodium chloride 0.9% 1,000 ML 75 ML IV ×2 (00:39→12:51)
[2021-12-27 03:41] LABS: Basophils % 0.3 %; Eosinophils # 0.3 10^3/uL (0.0-0.8); Eosinophils % 2.7 %; Hematocrit 27.7 % (42.0-52.0); Hemoglobin 8.5 g/dL (11.7-16.6); Lymphocytes # 0.9 10^3/uL (0.8-4.8); Lymphocytes % 9.5 %; Mean Corpuscular HGB Conc 30.7 g/dL (30.0-36.0); Mean Corpuscular Volume 94.5 fl (80-94); Mean Platelet Volume 8.2 fL (7.4-10.4); Monocytes # 1.1 10^3/uL (0.2-0.9); Monocytes % 11.4 %; Neutrophils # 7.26 10^3/uL (1.8-7.7); Neutrophils % 74.8 %; Nucleated Red Blood Cells % 0 %; Platelet Count 193 10^3/cmm (130-400); Red Blood Count 2.93 10^6/uL (4.1-5.3); Red Cell Distribution Width 15.2 % (12.1-15.1); White Blood Count 9.7 10^3/uL (4.0-10.0)
[2021-12-27 04:06] LABS: Anion Gap 14.2 (5-19); Blood Urea Nitrogen 16 mg/dL (8-23); Calcium 8.4 mg/dL (8.5-10.5); Carbon Dioxide 24 mmol/L (22-29); Chloride 104 mmol/L (98-107); Glomerular Filtration Rate 47.1 mL/min (90-130); Glucose 159 mg/dL (65-115); Osmolality Calculated 291 mOsm/kg (285-295); Potassium 4.2 mmol/L (3.5-5.1); Sodium 138 mmol/L (136-145)
[2021-12-27] MEDS: piperacillin-tazobactam 3.375 GM in sodium chloride 0.9% (plus) 50 ML IV ×3 (05:42→20:18)
[2021-12-27] MEDS: insulin glargine 100 units/1 mL 35 UNIT SUBCUT ×2 (06:15→19:02)
[2021-12-27] MEDS: levothyroxine 25 mcg Tablet PO (06:15)
[2021-12-27] MEDS: metoprolol tartrate 25 mg Tablet PO (06:15)
[2021-12-27] MEDS: amiodarone 200 mg Tablet PO (08:55)
[2021-12-27] MEDS: morphine 4 mg/mL SDV 1 mL 2 MG IVP (09:04)
--- NOTE | 2021-12-27 16:11 | P.PN_ITS ---
Subjective Subjective: Full course, labs appreciated. On examination patient lying comfortably in bed on home CPAP. Denies any new complaints. States he is awaiting bed at [facility] for further management. Otherwise has remained hemodynamically stable. T-max 99.9 Fahrenheit Vitals/I&O/Wt Last Vital Signs Temp 99.7 F H 12/27/21 15:25 Pulse 59 L 12/27/21 15:25 Resp 20 H 12/27/21 15:25 BP 165/70 12/27/21 15:25 Pulse Ox 98 12/27/21 15:25 12/27/21 12/27/21 12/27/21 06:59 14:59 22:59 Intake Total 1018.75 / 2528.75 1115 / 1115 Balance 1018.75 / 8.75 1115 / 1115 Weight last 48 hrs Weight 248.569 kg Weight 240.404 kg Physical Exam Narrative: Morbidly obese large male laying in bed with CPAP on, He took it off to talk to me NC/AT, EOMI, Large neck Clear to auscultation anterior lung ty. No wheezes or ronchi Soft, non tender, visceral obesity B/L LE edema generalized, wearing compression stockings Data : 12/27/21 03:27 12/27/21 03:27 Micro: Microbiology 12/26/21 05:56 Blood Culture - Preliminary Blood NEGATIVE TO DATE 12/26/21 02:30 Blood Culture - Preliminary Blood NEGATIVE TO DATE A&P Assessment and plan (1) Abscess, perirectal: Status: Acute (2) Venous ulcer of leg: Status: Acute Qualifiers: Laterality: left Qualified Code(s): I83.029 - Varicose veins of left lower extremity with ulcer of unspecified site; L97.929 - Non-pressure chronic ulcer of unspecified part of left lower leg with unspecified severity (3) Non-pressure chronic ulcer of other part of left foot with necrosis of bone: Status: Acute (4) Heart failure: Status: Acute (5) Hypertension: Status: Acute (6) Atrial fibrillation: Status: Acute (7) History of end stage renal disease: Status: Acute (8) Hx of type 2 diabetes mellitus: Status: Acute (9) PVD (peripheral vascular disease): Status: Acute (10) Generalized weakness: Status: Acute Plan Kenney Olea is a 66 year old male with past medical history of hypertension diabetes morbid obesity CKD stage stage III, A. fib, ?peripheral vascular diseas e with chronic nonhealing ulcers?came in? due to blood in stool and low back pain. For perirectal abscess: Patient requires further evaluation and management at a center with colorectal surgery. Patient has been accepted at [facility] for further management with Dr. Gunter. Awaiting bed. For now continue vancomycin, Zosyn. Follow-up blood cultures. History of atrial fibrillation: Continue amiodarone, Eliquis. History of diabetes mellitus: Insulin sliding scale, Lantus 70 units twice daily at home dose. History of heart failure: Lasix at home dose. History of sleep apnea: Continue with CPAP. 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
[2021-12-27] MEDS: metoprolol tartrate 25 mg Tablet 12.5 MG PO (18:40)
[2021-12-27] MEDS: apixaban 5 mg Tablet PO (18:40)
[2021-12-27] MEDS: HYDROcodone-acetaminophen 5-325 mg Tablet 1 TAB PO (18:41)
[2021-12-27 19:33] LABS: Glucose Point of Care 171 mg/dL (70-110)
[2021-12-27] MEDS: gabapentin 300 mg Capsule 900 MG PO (20:18)
[2021-12-28] VITALS (7 sets, daily range): BP systolic 139–145; BP diastolic 62–88; PULSE 51–59; RESP 14–16; TEMP 36.7–36.8; O2SAT 90–99
[2021-12-28] MEDS: piperacillin-tazobactam 3.375 GM in sodium chloride 0.9% (plus) 50 ML IV ×2 (03:12→11:57)
[2021-12-28] MEDS: apixaban 5 mg Tablet PO ×2 (05:54→17:35)
[2021-12-28] MEDS: levothyroxine 25 mcg Tablet PO (05:54)
[2021-12-28] MEDS: metoprolol tartrate 25 mg Tablet 12.5 MG PO (05:54)
[2021-12-28] MEDS: insulin glargine 100 units/1 mL 35 UNIT SUBCUT ×2 (05:55→17:35)
[2021-12-28 06:08] LABS: Glucose Point of Care 153 mg/dL (70-110)
[2021-12-28] MEDS: HYDROcodone-acetaminophen 5-325 mg Tablet 1 TAB PO ×3 (06:08→18:32)
[2021-12-28 06:14] LABS: Basophils % 0.5 %; Eosinophils # 0.3 10^3/uL (0.0-0.8); Hematocrit 28.3 % (42.0-52.0); Hemoglobin 8.6 g/dL (11.7-16.6); Lymphocytes % 11.4 %; Mean Corpuscular HGB Conc 30.4 g/dL (30.0-36.0); Mean Corpuscular Hemoglobin 29.3 pg (28.0-34.0); Mean Corpuscular Volume 96.3 fl (80-94); Mean Platelet Volume 8.5 fL (7.4-10.4); Monocytes # 0.9 10^3/uL (0.2-0.9); Monocytes % 10.5 %; Neutrophils # 6.11 10^3/uL (1.8-7.7); Neutrophils % 71.7 %; Nucleated Red Blood Cells % 0 %; Platelet Count 224 10^3/cmm (130-400); Red Blood Count 2.94 10^6/uL (4.1-5.3); Red Cell Distribution Width 15.4 % (12.1-15.1); White Blood Count 8.5 10^3/uL (4.0-10.0)
[2021-12-28 06:33] LABS: Blood Urea Nitrogen 18 mg/dL (8-23); Calcium 8.5 mg/dL (8.5-10.5); Carbon Dioxide 25 mmol/L (22-29); Chloride 102 mmol/L (98-107); Glomerular Filtration Rate 43.7 mL/min (90-130); Glucose 146 mg/dL (65-115); Osmolality Calculated 291 mOsm/kg (285-295); Sodium 138 mmol/L (136-145)
[2021-12-28] MEDS: ferrous sulfate EC 325 mg Tablet PO (09:09)
[2021-12-28] MEDS: amiodarone 200 mg Tablet PO (09:10)
--- NOTE | 2021-12-28 11:34 | PC.SOCIAL ---
Pg 2 IMM Explained to pt Pg 2 IMM. No questions voiced. Provided pt a copy. Initialed, dated, & timed a copy & placed in chart.
--- NOTE | 2021-12-28 12:58 | PM.PN ---
Subjective Subjective: No new complains. Compliant with CPAP, saturating well on 2L, still [facility] management. Hemodynamically stable. Vitals/I&O/Wt Last Vital Signs Temp 98.0 F 12/28/21 11:24 Pulse 54 L 12/28/21 11:24 Resp 15 12/28/21 11:24 BP 144/69 12/28/21 11:24 Pulse Ox 98 12/28/21 11:24 12/27/21 12/28/21 12/28/21 22:59 06:59 14:59 Intake Total 1290 / 2405 550 / 2955 50 / 50 Output Total 300 / 300 300 / 600 300 / 300 Balance 990 / 2105 250 / 2355 -250 / -250 Physical Exam Narrative: Morbidly obese , no acute distress,on CPAP NC/AT, EOMI, Large neck Clear to auscultation anterior lung ty. No wheezes or ronchi Soft, non tender, visceral obesity B/L LE edema generalized, wearing compression stockings Data : 12/28/21 05:27 12/28/21 05:27 A&P Assessment and plan (1) Abscess, perirectal: Status: Acute (2) Venous ulcer of leg: Status: Acute Qualifiers: Laterality: left Qualified Code(s): I83.029 - Varicose veins of left lower extremity with ulcer of unspecified site; L97.929 - Non-pressure chronic ulcer of unspecified part of left lower leg with unspecified severity (3) Non-pressure chronic ulcer of other part of left foot with necrosis of bone: Status: Acute (4) Heart failure: Status: Acute (5) Hypertension: Status: Acute (6) Atrial fibrillation: Status: Acute (7) History of end stage renal disease: Status: Acute (8) Hx of type 2 diabetes mellitus: Status: Acute (9) PVD (peripheral vascular disease): Status: Acute (10) Generalized weakness: Status: Acute Plan Kenney Olea is a 66 year old male with past medical history of hypertension diabetes morbid obesity CKD stage stage III, A. fib, ?peripheral vascular disease with chronic nonhealing ulcers?came in? due to blood in stool and low back pain. For perirectal abscess: Patient requires further evaluation and management at a center with colorectal surgery. [facility] for further management with Dr. Gunter. Awaiting bed. For now continue vancomycin, Zosyn. Follow-up blood cultures. As meredith is still at [facility] awaiting bed will request surgical consult of further assessment. Anemia: Check iron panel. Continuing home iron supplementation. History of atrial fibrillation: Continue amiodarone, Eliquis. Hold off metoprolol given bradycardia. History of diabetes mellitus: Insulin sliding scale, Lantus 70 units twice daily at home dose. History of heart failure: Lasix at home dose. History of sleep apnea: Continue with CPAP. 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
[2021-12-28 13:38] LABS: Iron 32 ug/dL (59-158); Percent Saturation 14.9 % (20-50); Total Iron Binding Capacity 214 mcg/dl; Unsaturated Iron Binding 182 ug/dL (112-347)
[2021-12-28 13:40] LABS: Estmated Average Glucose 194; Hemoglobin A1C 8.4 % (4.0-6.0)
[2021-12-28 13:48] LABS: Chol HDL Ratio 4.56 mg/dL (1.0-5.00); Cholesterol 164 mg/dL (0-200); HDL Cholesterol 36 mg/dL (60-100); LDL Cholesterol Calculated 103 mg/dL (50-129); Thyroid Stimulating Hormone 6.37 uIU/mL (0.27-4.20); Triglycerides 127 mg/dL (0-150); VLDL Cholestrol Calculation 25 mg/dL (0-30)
--- NOTE | 2021-12-28 16:07 | P.CONIM_ITS ---
Providers/Reason For Consult Consulting Physician/Specialty*: Navid Marina MD Reason for Consult*: Pelvic abscess Requesting Physician: Dr. Lo Attending Physician: Carlitos Murray MD History of Present Illness History of Present Illness Mr. Kenney Olea is a pleasant 66 year old male presented to the ER few days ago on 12/24/2021. And case was discussed with me over the phone by that the patient will require transfer failure to higher level of care due to the poten tial involvement of the urinary bladder. To my surprise patient was admitted to the hospitalist service on 12/25/2021. And has been receiving antimicrobial therapy and apparently has been waiting on a bed at [facility] to become vacant as he has been accepted over there. Recently I was notified that the patient stayed in the house and general surgery was consulted for evaluating the patient further for potential intervention while waiting to be transferred. Patient presented with history of morbid obesity with a current BMI of 70.4, hypertension, diabetes, chronic kidney disease stage III, A. fib, peripheral vascular disease with chronic nonhealing ulcers. Patient had presented with lower back pain primarily in the sacral region and CT of the abdomen and pelvis was done on 12/24/2021 that did show Abdomen/Pelvis CT? 12/24/21 13:25 IMPRESSION: 1. Ventral abdominal wall hernia contains small bowel but is without obstruction or inflammation. 2. Irregular fluid and air collection seen extending from the 2-3 o'clock position of the perianal region anterior to the left side of the urinary bladder. Adjacent fatty stranding is seen. Findings felt to represent a perianal vesicular abscess and sinus tract which has not yet ruptured into the lumen of the bladder to create a fistula. Abscess portion adjacent to the anus measures 5.0 x 2.8 cm. ? Lumbar Spine CT? 12/24/21 13:25 IMPRESSION: 1. L4-S1 degenerative disc disease is noted with vacuum phenomenon. Osteophytes are noted extending from the vertebrae. No acute spinal pathology is detected. Moderate narrowing of the neural foramina is noted bilaterally at these levels. 2. Degenerative changes as described above but no acute pathology detected. Pertinent labs: WBC 10.3 , H&H:10.6/ 34 , plt : 271 , serum sodium 137 , serum potassium: 4 , BUN and serum creatinine: 21/1.6 , CRP 49. Its not clear for me the indication to admit the patient to the hospital and not being transferred from the ER directly to higher level of care. Review of Systems General: Reports: 10 or more systems reviewed and unremarkable except in HPI and below Medications/Allergies Home Medications Medication Instructions Recorded Confirmed Last Taken Type apixaban 5 mg tablet (Eliquis) 5 mg PO BID@0600,1700 07/15/20 12/24/21 12/24/21 History gabapentin 300 mg capsule 900 mg PO BEDTIME@2100 07/15/20 12/24/21 12/23/21 History insulin glargine 100 unit/mL (3 70 unit SUBCUT BID@0600,1700 07/15/20 12/24/21 12/24/21 History mL) subcutaneous pen (Lantus Solostar U-100 Insulin) levothyroxine 25 mcg tablet 25 mcg PO DAILY@0600 07/15/20 12/24/21 12/24/21 History metoprolol tartrate 25 mg tablet 25 mg PO BID@0600,1700 07/15/20 12/24/21 12/24/21 History ferrous sulfate 325 mg (65 mg 325 mg PO DAILY 12/09/20 12/24/21 12/24/21 History iron) tablet (iron) amiodarone 200 mg tablet 200 mg PO BID 12/24/21 12/24/21 12/24/21 History furosemide 20 mg tablet (Lasix) 20 mg PO DAILY 12/24/21 12/24/21 12/24/21 History Allergies Allergy/AdvReac Type Severity Reaction Status Date / Time aspirin Allergy Unknown Verified 03/11/21 13:14 Vicodin Allergy Unknown Unknown Uncoded 05/18/21 13:17 Victoza AdvReac Mild ADR-Nausea Uncoded 09/01/21 08:18 Current Medications Generic Name Dose Route Start Last Admin Trade Name Freq PRN Reason Stop Dose Admin Hydrocodone Bitart/Acetaminophen 1 tab 12/27/21 16:17 12/28/21 11:59 Hydrocodone-Acetaminophen 5-325 Mg Tablet PO 1 tab Q6H PRN Administration MODERATE PAIN Amiodarone HCl 200 mg 12/28/21 09:00 12/28/21 09:10 Amiodarone 200 Mg Tablet PO 200 mg DAILY CRUZ Administration Apixaban 5 mg 12/27/21 17:00 12/28/21 05:54 Apixaban 5 Mg Tablet PO 5 mg BID@0600,1700 CRUZ Administration Ferrous Sulfate 325 mg 12/26/21 09:00 12/28/21 09:09 Ferrous Sulfate Ec 325 Mg Tablet PO 325 mg DAILY CRUZ Administration Gabapentin 900 mg 12/26/21 21:00 12/27/21 20:18 Gabapentin 300 Mg Capsule PO 900 mg BEDTIME@2100 CRUZ Administration Piperacillin Sod/Tazobactam 50 mls @ 12.5 mls/hr 12/26/21 03:00 12/28/21 11:57 Sod 3.375 gm/ Sodium Chloride IV 12.5 mls/hr Q8H CRUZ Administration Vancomycin HCl 2,000 mg/ 500 mls @ 250 mls/hr 12/26/21 13:00 12/28/21 03:12 Sodium Chloride IV Infused Q18H CRUZ Infusion Insulin Glargine 35 unit 12/26/21 06:00 12/28/21 05:55 Insulin Glargine 100 Units/1 Ml SUBCUT 35 unit BID@0600,1700 CRUZ Administration Levothyroxine Sodium 25 mcg 12/26/21 06:00 12/28/21 05:54 Levothyroxine 25 Mcg Tablet PO 25 mcg DAILY@0600 CRUZ Administration Metoprolol Tartrate 12.5 mg 12/27/21 17:00 12/28/21 05:54 Metoprolol Tartrate 25 Mg Tablet PO 12.5 mg BID@0600,1700 CRUZ Administration PFSH Acute PFSH: Medical History (Updated 12/25/21 @ 23:21 by Jaspreet Ramirez MD) Fall History of end stage renal disease Hx of type 2 diabetes mellitus Morbid obesity Social History Alcohol intake: never Vitals/I&O/Wt Last Vital Signs Temp 98.0 F 12/28/21 15:21 Pulse 52 L 12/28/21 15:21 Resp 16 12/28/21 15:21 BP 145/71 12/28/21 15:21 Pulse Ox 99 12/28/21 15:21 12/28/21 12/28/21 12/28/21 06:59 14:59 22:59 Intake Total 550 / 2955 50 / 50 Output Total 300 / 600 600 / 600 Balance 250 / 2355 -550 / -550 Physical Exam Narrative: Patient is conscious alert oriented X3 No apparent distress BMI 70.4 Head and neck examination PERRLA no masses no cervical lymphadenopathy no ja undice Cardiac examination audible S1-S2 no murmurs no gallops no arrhythmias Chest is clear bilateral,abscence of Rhonchi or wheezes,no surgical emphysema Abdomen nontender nondistended soft no organomegaly guarding or rigidity/no signs of peritonitis Reducible umbilical hernia Super super obese Perianal examination shows no fluctuation or distinct swellings or perianal fistulae or sinuses there is mild denuded skin around the perianal area and some tenderness towards the proximal part of the anal cleft but no evidence of abscess formation. Likely it is a deeply seated perirectal abscess as based on the CT scan findings. Obviously very limited examination due to the body habitus is being done bedside on the floor Data : 12/28/21 05:27 12/28/21 05:27 A&P Assessment and plan (1) Abscess, perirectal: After history taking physical examination and reviewing the chart and images with my personal interpretation. Certainly there is concerning pathology of a perirectal abscess with potential underlying fistulization to the urinary bladder. At this point as I have advised the ER team when I was called on the patient before that patient will require to be transferred to higher level of care due to the complex pathology that he is encountering. Patient will require to be examined under anesthesia in the lithotomy position for appropriate drainage of the perirectal abscess and perhaps a cystoscope or concomitant urological evaluation to be done at the same time. I will defer this to the urology team. Our available OR bed does not have the capacity to accommodate the patient with this weight in a lithotomy position and would be unsafe to subject the patient for such an encounter and thus I would highly emphasize on the fact to expedite the transfer of the patient as I am concerned that this pathology may turn to a necrotizing fasciitis and including but not limited to Aly gangrene which c arries a very dismal prognosis in this capacity. 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 Which makes it more complicated. Yet we will continue current antibiotics per hospitalist service and if there is further concern infectious disease should be consulted. I did explain for the patient the current status and the team is working to expedite the transfer to higher level of care. Patient understands and he agrees on the plan of care. Assurance and education All questions have been answered and all concerns have been addressed to patient's satisfaction. Status: Acute Consult Attestations Medical Necessity Statement: Per admitting service Time Spent in Patient Care: 16 - 35 minutes Coding Level of Care Code [facility] Abscess, perirectal K61.1
--- NOTE | 2021-12-28 17:10 | P.TS_ITS ---
Transfer Summary Providers Date of Admission: 12/25/21 22:50 Date of Discharge/Transfer: 12/29/21 Attending Provider at Admission: Jaspreet Ramirez MD Attending Provider at Transfer: Carlitos Murray MD Consults: Surgery: Dr. Ayala Transfer Plans: Anticipated date of transfer: 12/29/21 . Receiving Facility: [facility] . Receiving Provider: Dr. Abebe . Diagnoses at Discharge Discharge Diagnosis (1) Abscess, perirectal: Status: Acute Reason for Visit Reason for Visit tail bone pain, bloody stool Brief History: History as per HPI: Kenney Olea is a 66 year old male with past medical history of hypertension diabetes morbid obesity CKD stage stage III , A. fib, ?peripheral vascular disease with chronic nonhealing ulcers?came in? due to blood in stool and low back pain.?Patient has history of osteomyelitis for which she has completed the treatment course.? But lately in the last few days his lower back pain has been bad pain is primarily in the sacral region, he is also complaining of couple of days of dark red blood per rectum. He does have pain after bowel movements.Denies lightheadedness or dizziness. Hospital Course Hospital Course Patient had CT abdomen pelvis in the ER which showed collection in perianal area measuring 5 into 2.8 cm concerning for perirectal abscess with possible tracking towards urinary bladder. CT scan in the ER above discussed with surgery on board who recommended patient to be transferred to higher center for further evaluation and surgical treatment. Patient was accepted at [facility] for further management but bed was not available so hospitalist service was requested for admission. Patient was admitted and started on broad-spectrum antibiotics. During hospitalization his blood cultures remain negative. Patient did have episodes of bradycardia for which his home dose of metoprolol and amiodarone number adjusted. Surgery was reconsulted. Patient kept waiting for bed at [facility] for [facility] days. His hospitalization was unremarkable. Because of high risk of patient developing Aly's gangrene, necrotizing fasciitis and inability for patient to get surgical treatment at [facility] because of weight limit in lithotomy position off the OR further transfer to a different center was sought. Patient was accepted by Dr. Abebe at [facility]. He has been transferred in hemodynamically stable condition Physical Exam Narrative: Morbidly obese , no acute distress,on CPAP NC/AT, EOMI, Large neck Clear to auscultation anterior lung ty. No wheezes or ronchi Soft, non tender, visceral obesity B/L LE edema generalized, wearing compression stockings TS Data Studies Completed and Pending Pending at discharge Category Date Time Status Blood Culture Routine Lab 12/26/21 05:56 Results Labs from last 24 hours 12/28/21 12/28/21 12/28/21 06:00 05:27 05:27 WBC RBC Hgb Hct MCV MCH MCHC RDW Plt Count MPV Neut % (Auto) Lymph % (Auto) Chester % (Auto) Eos % (Auto) Baso % (Auto) Neut # (Auto) Lymph # (Auto) Chester # (Auto) Eos # (Auto) Baso # (Auto) Nucleated RBC % (auto) Nucleated RBCs # Sodium Potassium Chloride Carbon Dioxide Anion Gap BUN Creatinine GFR Calculation Glucose POC Glucose 153 H Estimat Average Glucose 194 Hemoglobin A1c 8.4 H Calculated Osmolality Calcium Iron TIBC % Saturation Unsat Iron Binding Triglycerides 127 Cholesterol 164 LDL Cholesterol, Calc 103 Total VLDL Cholesterol 25 HDL Cholesterol 36 L Cholesterol/HDL Ratio 4.56 TSH 6.37 H 12/28/21 12/28/21 12/28/21 05:27 05:27 05:27 WBC 8.5 RBC 2.94 L Hgb 8.6 L Hct 28.3 L MCV 96.3 H MCH 29.3 MCHC 30.4 RDW 15.4 H Plt Count 224 MPV 8.5 Neut % (Auto) 71.7 Lymph % (Auto) 11.4 Chester % (Auto) 10.5 Eos % (Auto) 4.0 Baso % (Auto) 0.5 Neut # (Auto) 6.11 Lymph # (Auto) 1.0 Chester # (Auto) 0.9 Eos # (Auto) 0.3 Baso # (Auto) 0.0 Nucleated RBC % (auto) 0 Nucleated RBCs # 0.0 Sodium 138 Potassium 4.0 Chloride 102 Carbon Dioxide 25 Anion Gap 15.0 BUN 18 Creatinine 1.6 H GFR Calculation 43.7 L Glucose 146 H POC Glucose Estimat Average Glucose Hemoglobin A1c Calculated Osmolality 291 Calcium 8.5 Iron 32 L TIBC 214 % Saturation 14.9 L Unsat Iron Binding 182 Triglycerides Cholesterol LDL Cholesterol, Calc Total VLDL Cholesterol HDL Cholesterol Cholesterol/HDL Ratio TSH 12/27/21 18:56 WBC RBC Hgb Hct MCV MCH MCHC RDW Plt Count MPV Neut % (Auto) Lymph % (Auto) Chester % (Auto) Eos % (Auto) Baso % (Auto) Neut # (Auto) Lymph # (Auto) Chester # (Auto) Eos # (Auto) Baso # (Auto) Nucleated RBC % (auto) Nucleated RBCs # Sodium Potassium Chloride Carbon Dioxide Anion Gap BUN Creatinine GFR Calculation Glucose POC Glucose 171 H Estimat Average Glucose Hemoglobin A1c Calculated Osmolality Calcium Iron TIBC % Saturation Unsat Iron Binding Triglycerides Cholesterol LDL Cholesterol, Calc Total VLDL Cholesterol HDL Cholesterol Cholesterol/HDL Ratio TSH Completed Studies During Hospitalization Category Date Time Status CT abdomen pelvis w con* [id number] Stat Cat Scan 12/24/21 13:[address] lumbar spine wo con* [id number] Stat Cat Scan 12/24/21 13:25 Completed Laboratory Last Values WBC 8.5 10^3/uL (4.0-10.0) 12/28/21 05:27 RBC 2.94 10^6/uL (4.1-5.3) L 12/28/21 05:27 Hgb 8.6 g/dL (11.7-16.6) L 12/28/21 05:27 Hct 28.3 % (42.0-52.0) L 12/28/21 05:27 MCV 96.3 fl (80-94) H 12/28/21 05:27 MCH 29.3 pg (28.0-34.0) 12/28/21 05:27 MCHC 30.4 g/dL (30.0-36.0) 12/28/21 05:27 RDW 15.4 % (12.1-15.1) H 12/28/21 05:27 Plt Count 224 10^3/cmm (130-400) 12/28/21 05:27 MPV 8.5 fL (7.4-10.4) 12/28/21 05:27 Neut % (Auto) 71.7 % 12/28/21 05:27 Lymph % (Auto) 11.4 % 12/28/21 05:27 Chester % (Auto) 10.5 % 12/28/21 05:27 Eos % (Auto) 4.0 % 12/28/21 05:27 Baso % (Auto) 0.5 % 12/28/21 05:27 Neut # (Auto) 6.11 10^3/uL (1.8-7.7) 12/28/21 05:27 Lymph # (Auto) 1.0 10^3/uL (0.8-4.8) 12/28/21 05:27 Chester # (Auto) 0.9 10^3/uL (0.2-0.9) 12/28/21 05:27 Eos # (Auto) 0.3 10^3/uL (0.0-0.8) 12/28/21 05:27 Baso # (Auto) 0.0 10^3/uL (0.0-0.1) 12/28/21 05:27 Nucleated RBC % (auto) 0 % 12/28/21 05:27 Nucleated RBCs # 0.0 /100WBC 12/28/21 05:27 ESR Cancelled 12/24/21 10:50 PT 17.20 SECONDS (12.1-14.9) H 12/24/21 13:15 INR 1.37 (0.8-1.2) H 12/24/21 13:15 Sodium 138 mmol/L (136-145) 12/28/21 05:27 Potassium 4.0 mmol/L (3.5-5.1) 12/28/21 05:27 Chloride 102 mmol/L (98-107) 12/28/21 05:27 Carbon Dioxide 25 mmol/L (22-29) 12/28/21 05:27 Anion Gap 15.0 (5-19) 12/28/21 05:27 BUN 18 mg/dL (8-23) 12/28/21 05:27 Creatinine 1.6 mg/dL (0.7-1.2) H 12/28/21 05:27 GFR Calculation 43.7 mL/min (90-130) L 12/28/21 05:27 Glucose 146 mg/dL (65-115) H 12/28/21 05:27 POC Glucose 153 mg/dL (70-110) H 12/28/21 06:00 Estimat Average Glucose 194 12/28/21 05:27 Hemoglobin A1c 8.4 % (4.0-6.0) H 12/28/21 05:27 Calculated Osmolality 291 mOsm/kg (285-295) 12/28/21 05:27 Lactic Acid 0.9 mmol/L (0.5-2.2) 12/26/21 02:30 Calcium 8.5 mg/dL (8.5-10.5) 12/28/21 05:27 Iron 32 ug/dL (59-158) L 12/28/21 05:27 TIBC 214 mcg/dl 12/28/21 05:27 % Saturation 14.9 % (20-50) L 12/28/21 05:27 Unsat Iron Binding 182 ug/dL (112-347) 12/28/21 05:27 Total Bilirubin 0.3 mg/dL (0.15-1.2) 12/24/21 10:50 AST 10 U/L (0-40) 12/24/21 10:50 ALT 11 U/L (0-41) 12/24/21 10:50 Alkaline Phosphatase 59 IU/L (40-130) 12/24/21 10:50 C-Reactive Protein 49.6 mg/L (0.0-4.9) H 12/24/21 10:50 Total Protein 7.8 g/dL (6.6-8.7) 12/24/21 10:50 Albumin 4.1 g/dL (3.5-5.2) 12/24/21 10:50 Globulin 3.7 g/dL (1.3-4.6) 12/24/21 10:50 Triglycerides 127 mg/dL (0-150) 12/28/21 05:27 Cholesterol 164 mg/dL (0-200) 12/28/21 05:27 LDL Cholesterol, Calc 103 mg/dL (50-129) 12/28/21 05:27 Total VLDL Cholesterol 25 mg/dL (0-30) 12/28/21 05:27 HDL Cholesterol 36 mg/dL (60-100) L 12/28/21 05:27 Cholesterol/HDL Ratio 4.56 mg/dL (1.0-5.00) 12/28/21 05:27 Procalcitonin 0.07 ng/mL (0-0.5) 12/26/21 02:30 TSH 6.37 uIU/mL (0.27-4.20) H 12/28/21 05:27 Urine Color Yellow (Yellow) 12/24/21 16:10 Urine Appearance Clear (CLEAR) 12/24/21 16:10 Urine pH 5 (5-7) 12/24/21 16:10 Ur Specific Perry 1.005 (1.005-1.030) 12/24/21 16:10 Urine Protein Neg (Negative) 12/24/21 16:10 Urine Glucose (UA) Norm (Normal) 12/24/21 16:10 Urine Ketones Negative (Negative) 12/24/21 16:10 Urine Blood 2+ (Negative) H 12/24/21 16:10 Urine Nitrate Negative (Negative) 12/24/21 16:10 Urine Bilirubin Neg (Negative) 12/24/21 16:10 Urine Urobilinogen Norm mg/dL (Negative) 12/24/21 16:10 Ur Leukocyte Esterase Negative (Negative) 12/24/21 16:10 Urine RBC None /hpf (0-2) 12/24/21 16:10 Urine WBC None /hpf (0-5) 12/24/21 16:10 Ur Squamous Epith Cells 0-4 /hpf (0-5) H 12/24/21 16:10 Amorphous Sediment Not Reportable 12/24/21 16:10 Urine Bacteria None /hpf (NONE) 12/24/21 16:10 Vancomycin Trough 22.7 ug/mL (10-15) H 12/26/21 05:56 SARS-CoV-2 Ag (Rapid) Negative (Negative) 12/24/21 18:57 Misc Test Reference See comment 12/24/21 10:50 Radiology Impressions Abdomen/Pelvis CT 12/24/21 13:25 IMPRESSION: 1. Ventral abdominal wall hernia contains small bowel but is without obstruction or inflammation. 2. Irregular fluid and air collection seen extending from the 2-3 o'clock position of the perianal region anterior to the left side of the urinary bladder. Adjacent fatty stranding is seen. Findings felt to represent a perianal vesicular abscess and sinus tract which has not yet ruptured into the lumen of the bladder to create a fistula. Abscess portion adjacent to the anus measures 5.0 x 2.[address] 12/24/21 13:25 IMPRESSION: 1. L4-S1 degenerative disc disease is noted with vacuum phenomenon. Osteophytes are noted extending from the vertebrae. No acute spinal pathology is detected. Moderate narrowing of the neural foramina is noted bilaterally at these levels. 2. Degenerative changes as described above but no acute pathology detected. Recent Clincial Data Last Vital Signs Temp 98.0 F 06/28/22 15:21 Pulse 52 L 12/28/21 15:21 Resp 16 12/28/21 15:21 BP 145/71 12/28/21 15:21 Pulse Ox 99 12/28/21 15:21 Vital Signs Temp Pulse Resp BP Pulse Ox 12/28/21 15:21 98.0 F 52 L 16 145/71 99 12/28/21 13:20 51 L 98 12/28/21 13:19 51 L 98 12/28/21 11:24 98.0 F 54 L 15 144/69 98 12/28/21 07:15 98.1 F 55 L 14 142/62 98 Intake & Output/Weight 12/26/21 12/27/21 12/28/21 12/29/21 06:59 06:59 06:59 06:59 Intake Total 4850 / 4850 2528.75 / 2528.75 2955 / 2955 100 / 100 Output Total 300 / 300 500 / 500 600 / 600 600 / 600 Balance 4550 / 4550 2028.75 / 2028.75 2355 / 2355 -500 / -500 Weight 248.569 kg Vitals Last Vital Signs Temp 98.0 F 12/28/21 15:21 Pulse 52 L 12/28/21 15:21 Resp 16 12/28/21 15:21 BP 145/71 12/28/21 15:21 Pulse Ox 99 12/28/21 15:21 TS Medications Medications Acetaminophen (Acetaminophen 325 Mg Tablet) 650 mg PO Q6H PRN PRN Reason: Mild/Mod Pain Or Temp >/= 101 Hydrocodone Bitart/Acetaminophen (Hydrocodone-Acetaminophen 5-325 Mg Tablet) 1 tab PO Q6H PRN PRN Reason: MODERATE PAIN Last Admin: 12/28/21 11:59 Dose: 1 tab Documented by: Amiodarone HCl (Amiodarone 200 Mg Tablet) 200 mg PO DAILY [facility] Last Admin: 12/28/21 09:10 Dose: 200 mg Documented by: Apixaban (Apixaban 5 Mg Tablet) 5 mg PO BID@0600,1700 [facility] Last Admin: 12/28/21 05:54 Dose: 5 mg Documented by: Bisacodyl (Bisacodyl 5 Mg Tablet) 10 mg PO DAILY PRN; Protocol PRN Reason: Constipation (see protocol) Famotidine (Famotidine 20 Mg Tablet) 20 mg PO BID [facility] Ferrous Sulfate (Ferrous Sulfate Ec 325 Mg Tablet) 325 mg PO DAILY [facility] Last Admin: 12/28/21 09:09 Dose: 325 mg Documented by: Gabapentin (Gabapentin 300 Mg Capsule) 900 mg PO BEDTIME@2100 [facility] Last Admin: 12/27/21 20:18 Dose: 900 mg Documented by: Piperacillin Sod/Tazobactam (Sod 3.375 gm/ Sodium Chloride) 50 mls @ 12.5 mls/hr IV Q8H [facility] Last Infusion: 12/28/21 16:08 Dose: Infused Documented by: Vancomycin HCl 2,000 mg/ (Sodium Chloride) 500 mls @ 250 mls/hr IV Q18H [facility] Last Infusion: 12/28/21 03:12 Dose: Infused Documented by: Insulin Glargine (Insulin Glargine 100 Units/1 Ml) 35 unit SUBCUT BID@0600,1700 [facility] Last Admin: 12/28/21 05:55 Dose: 35 unit Documented by: Levothyroxine Sodium (Levothyroxine 25 Mcg Tablet) 25 mcg PO DAILY@0600 [facility] Last Admin: 12/28/21 05:54 Dose: 25 mcg Documented by: Metoprolol Tartrate (Metoprolol Tartrate 25 Mg Tablet) 12.5 mg PO BID@0600,1700 [facility] Last Admin: 12/28/21 05:54 Dose: 12.5 mg Documented by: Discontinued Medications Acetaminophen (Acetaminophen 500 Mg Tablet) 1,000 mg PO ONCE ONE Stop: 12/25/21 00:06 Last Admin: 12/25/21 00:44 Dose: 1,000 mg Documented by: Amiodarone HCl (Amiodarone 200 Mg Tablet) 200 mg PO BID [facility] Last Admin: 12/27/21 08:55 Dose: 200 mg Documented by: Fentanyl (Fentanyl 50 Mcg/Ml Inj 2ml) 75 mcg IVP ONCE ONE Stop: 12/25/21 04:08 Last Admin: 12/25/21 04:53 Dose: 75 mcg Documented by: Fentanyl (Fentanyl 50 Mcg/Ml Inj 2ml) 75 mcg IVP ONCE ONE Stop: 12/25/21 11:23 Last Admin: 12/25/21 13:07 Dose: 75 mcg Documented by: Heparin Sodium (Porcine) (Heparin 5,000 Unit/Ml Inj 1 Ml) 5,000 unit SUBCUT Q8H [facility] Last Admin: 12/27/21 16:06 Dose: 5,000 unit Documented by: Hydromorphone HCl (Hydromorphone 1 Mg/Ml Inj 1 Ml) 0.5 mg IVP ONCE ONE Stop: 12/25/21 16:05 Last Admin: 12/25/21 16:09 Dose: 0.5 mg Documented by: Hydromorphone HCl (Hydromorphone 1 Mg/Ml Inj 1 Ml) 0.5 mg IVP ONCE ONE Stop: 12/26/21 11:19 Last Admin: 12/26/21 11:43 Dose: 0.5 mg Documented by: Hydromorphone HCl (Hydromorphone 1 Mg/Ml Inj 1 Ml) 0.5 mg IVP ONCE ONE Stop: 12/26/21 18:37 Last Admin: 12/26/21 22:12 Dose: Not Given Documented by: Piperacillin Sod/Tazobactam (Sod 4.5 gm/ Sodium Chloride) 50 mls @ 100 mls/hr IV ONCE ONE; Protocol Stop: 12/24/21 16:47 Last Admin: 12/24/21 23:44 Dose: Not Given Documented by: Vancomycin HCl 2,000 mg/ (Sodium Chloride) 500 mls @ 250 mls/hr IV ONCE ONE; Protocol Stop: 12/24/21 18:17 Last Infusion: 12/24/21 22:53 Dose: Infused Documented by: Piperacillin Sod/Tazobactam (Sod 4.5 gm/ Sodium Chloride) 50 mls @ 100 mls/hr IV ONCE ONE; Protocol Stop: 12/24/21 23:41 Last Infusion: 12/25/21 01:26 Dose: Infused Documented by: Vancomycin HCl 2,000 mg/ (Sodium Chloride) 500 mls @ 250 mls/hr IV ONCE ONE; Protocol Stop: 12/25/21 06:07 Last Infusion: 12/25/21 07:17 Dose: Infused Documented by: Piperacillin Sod/Tazobactam (Sod 4.5 gm/ Sodium Chloride) 50 mls @ 100 mls/hr IV ONCE ONE; Protocol Stop: 12/25/21 04:37 Last Infusion: 12/25/21 05:08 Dose: Infused Documented by: Sodium Chloride (Sodium Chloride 0.9%) 1,000 mls @ 150 mls/hr IV .Q6H40M [facility] Last Infusion: 12/26/21 07:36 Dose: Infused Documented by: Acetaminophen (Acetaminophen) 1,000 mg in 100 mls @ 400 mls/hr IV ONCE ONE Stop: 12/25/21 07:34 Last Infusion: 12/25/21 08:40 Dose: Infused Documented by: Piperacillin Sod/Tazobactam (Sod 4.5 gm/ Sodium Chloride) 50 mls @ 100 mls/hr IV Q8H [facility]; Protocol Piperacillin Sod/Tazobactam (Sod 4.5 gm/ Sodium Chloride) 50 mls @ 100 mls/hr IV Q6H [facility]; Protocol Last Infusion: 12/26/21 00:37 Dose: Infused Documented by: Vancomycin HCl / Sodium (Chloride) 250 mls @ 0 mls/hr [id number] PROTOCOL [facility]; Protocol Vancomycin HCl 2,000 mg/ (Sodium Chloride) 500 mls @ 250 mls/hr IV Q12H [facility] Last Admin: 12/25/21 19:07 Dose: Not Given Documented by: Vancomycin HCl 2,000 mg/ (Sodium Chloride) 500 mls @ 250 mls/hr IV ONCE ONE; Protocol Stop: 12/25/21 21:08 Last Infusion: 12/26/21 00:37 Dose: Infused Documented by: Vancomycin HCl 2,000 mg/ (Sodium Chloride) 500 mls @ 250 mls/hr IV Q12H [facility] Last Admin: 12/26/21 07:36 Dose: Not Given Documented by: Sodium Chloride (Sodium Chloride 0.9%) 1,000 mls @ 75 mls/hr IV .[id number] [facility] Last Infusion: 12/27/21 16:53 Dose: Infused Documented by: Iodixanol (Iodixanol 320 Mg/Ml 100ml Btl) 0 ml IV ONCE ONE Stop: 12/24/21 14:07 Last Admin: 12/24/21 14:06 Dose: 95 ml Documented by: Metoprolol Tartrate (Metoprolol Tartrate 25 Mg Tablet) 25 mg PO BID@0600,1700 [facility] Last Admin: 12/27/21 06:15 Dose: 25 mg Documented by: Morphine Sulfate (Morphine 4 Mg/Ml Sdv 1 Ml) 4 mg IVP ONCE ONE Stop: 12/24/21 12:43 Last Admin: 12/24/21 13:17 Dose: 4 mg Documented by: Morphine Sulfate (Morphine 4 Mg/Ml Sdv 1 Ml) 4 mg IVP ONCE ONE Stop: 12/24/21 16:14 Last Admin: 12/24/21 18:19 Dose: Not Given Documented by: Morphine Sulfate (Morphine 4 Mg/Ml Sdv 1 Ml) 4 mg IVP ONCE ONE Stop: 12/24/21 18:21 Last Admin: 12/24/21 18:24 Dose: 4 mg Documented by: Morphine Sulfate (Morphine 4 Mg/Ml Sdv 1 Ml) 4 mg IVP ONCE ONE Stop: 12/24/21 23:45 Last Admin: 12/25/21 01:25 Dose: Not Given Documented by: Morphine Sulfate (Morphine 4 Mg/Ml Sdv 1 Ml) 2 mg IVP Q4H PRN PRN Reason: SEVERE PAIN Last Admin: 12/27/21 09:04 Dose: 2 mg Documented by: Ondansetron HCl (Ondansetron 2 Mg/Ml Sdv 2 Ml) 4 mg IVP ONCE ONE Stop: 12/25/21 15:42 Last Admin: 12/25/21 16:02 Dose: 4 mg Documented by: Ondansetron HCl (Ondansetron 2 Mg/Ml Sdv 2 Ml) 4 mg IVP ONCE ONE Stop: 12/25/21 19:44 Last Admin: 12/25/21 20:37 Dose: 4 mg Documented by: Ondansetron HCl (Ondansetron 2 Mg/Ml Sdv 2 Ml) 4 mg IVP ONCE ONE Stop: 12/26/21 18:38 Last Admin: 12/26/21 22:12 Dose: Not Given Documented by: Allergies aspirin Allergy (Verified 03/11/21 13:14) Unknown Vicodin Allergy (Unknown, Uncoded 05/18/21 13:17) Unknown Victoza Adverse Reaction (Mild, Uncoded 09/01/21 08:18) ADR-Nausea Home Medications apixaban 5 mg tablet (Eliquis) 5 mg PO BID@0600,1700 07/15/20 [History Confirmed 12/24/21] gabapentin 300 mg capsule 900 mg PO BEDTIME@2100 07/15/20 [History Confirmed 12/24/21] insulin glargine 100 unit/mL (3 mL) subcutaneous pen (Lantus Solostar U-100 Insulin) 70 unit SUBCUT BID@0600,1700 07/15/20 [History Confirmed 12/24/21] levothyroxine 25 mcg tablet 25 mcg PO DAILY@0600 07/15/20 [History Confirmed 12/24/21] metoprolol tartrate 25 mg tablet 25 mg PO BID@0600,1700 07/15/20 [History Confirmed 12/24/21] ferrous sulfate 325 mg (65 mg iron) tablet (iron) 325 mg PO DAILY 12/09/20 [History Confirmed 12/24/21] amiodarone 200 mg tablet 200 mg PO BID 12/24/21 [History Confirmed 12/24/21] furosemide 20 mg tablet (Lasix) 20 mg PO DAILY 12/24/21 [History Confirmed 12/24/21] Discharge Plan Discharge Patient Disposition: Xfer Other Condition: Stable Prescriptions: No Action levothyroxine 25 mcg tablet 25 mcg PO DAILY@0600 0RF gabapentin 300 mg capsule 900 mg PO BEDTIME@2100 0RF metoprolol tartrate 25 mg tablet 25 mg PO BID@0600,1700 0RF Hold Instructions: Resume on 11/10/20. follow up after PCP visit insulin glargine [Lantus Solostar U-100 Insulin] 100 unit/mL (3 mL) insulin pen 70 unit SUBCUT BID@0600,1700 0RF Hold Instructions: Resume on 11/10/20. after PCP follow up Eliquis 5 mg tablet 5 mg PO BID@0600,1700 0RF ferrous sulfate [iron] 325 mg (65 mg iron) Tablet 325 mg PO DAILY 0RF Lasix 20 mg tablet 20 mg PO DAILY 0RF amiodarone 200 mg Tablet 200 mg PO BID 0RF Discharge Orders: Transfer Out of Facility (Order); Ordered 12/28/21 Ordered By: Carlitos Murray Discharge Diet: Cardiac and Diabetic Discharge Activity: Resume usual activity and Increase activity as tolerated Patient Instructions: Opioid Safety Transfer Attestations Time Spent in Transfer Care: greater than 30 min Specific Discharge Activities: educating patient, discussing with pcp/other providers, discussing with mental health case manager/social workers/dc planners, documenting/other paperwork and evaluating patient/reviewing data Status at Transfer: Cognitive status at transfer: cognitively intact ; Behavioral status at transfer: cooperative ; Functional status at transfer: other assisted ambulation ; Overall status at transfer: patient is not back to baseline Quality Metrics Clinical Quality Measures [ No reported AMI, CVA or VTE this stay] Coding Level of Care Code Acute Dry Chain Puller for Chg Fwd History Comprehensive Exam Comprehensive Medical Decision Making High Complexity Diagnoses Abscess, perirectal K61.1
[2021-12-28] MEDS: famotidine 20 mg Tablet PO (17:35)
[2021-12-28 17:38] LABS: Glucose Point of Care 181 mg/dL (70-110)
[2021-12-31 13:38] LABS: Erythrocyte Sedimentation Rate 70 mm/hr (0-10)
== END 2021-12-28 18:46 | disposition short-term general hospital (02) | DRG 394 ==
LOC: ER 12-25 08:13 → MEDSURG 12-25 23:04
PROVIDERS: Internal Medicine; Admitting Provider Internal Medicine; Emergency Provider Emergency Medicine; Visit Provider Student in an Organized Health Care Education/Training Program
DX: K61.1 Rectal abscess (principal); I13.2 Hypertensive heart and chronic kidney disease with heart failure and with stage 5 chronic kidney disease, or end stage renal disease; K92.1 Melena; Z68.45 Body mass index [BMI] 70 or greater, adult; L97.929 Non-pressure chronic ulcer of unspecified part of left lower leg with unspecified severity; E11.22 Type 2 diabetes mellitus with diabetic chronic kidney disease; I50.9 Heart failure, unspecified; E11.51 Type 2 diabetes mellitus with diabetic peripheral angiopathy without gangrene; M54.50 Low back pain, unspecified; E66.01 Morbid (severe) obesity due to excess calories; I48.91 Unspecified atrial fibrillation; E03.9 Hypothyroidism, unspecified; L97.524 Non-pressure chronic ulcer of other part of left foot with necrosis of bone; N18.30 Chronic kidney disease, stage 3 unspecified; Z99.89 Dependence on other enabling machines and devices; Z79.4 Long term (current) use of insulin
CPT/HCPCS: 36415; 36416; 72131; 74177; 80048; 80053; 80061; 80202; 81001; 82962; 83036; 83540; 83550; 83605; 84145; 84443; 85025; 85610; 85651; 86140; 87040; 87426; 94660; 96365; 96366; 96367; 96372; 96375; 96376; 99291; J1170; J1644; J2270; J2405; J2543; J3010; J3370; J7030; J7040; Q9967

== ENCOUNTER → 2022-01-12 08:44 | Outpatient (BNVA) | payer MEDICARE, MEDICAID, SELFPAY | PROVIDERS: Visit Provider Thoracic Surgery (Cardiothoracic Vascular Surgery) | DX: I96 Gangrene, not elsewhere classified (principal); L89.623 Pressure ulcer of left heel, stage 3; I87.2 Venous insufficiency (chronic) (peripheral); L97.822 Non-pressure chronic ulcer of other part of left lower leg with fat layer exposed | CPT/HCPCS: 11042; 11045; A6252; A6253 ==

== ENCOUNTER → 2022-01-19 08:38 | Outpatient (BNVA) | payer MEDICARE, MEDICAID, SELFPAY | PROVIDERS: Visit Provider Thoracic Surgery (Cardiothoracic Vascular Surgery) | DX: L89.623 Pressure ulcer of left heel, stage 3 (principal); I96 Gangrene, not elsewhere classified; I87.2 Venous insufficiency (chronic) (peripheral); L97.822 Non-pressure chronic ulcer of other part of left lower leg with fat layer exposed | CPT/HCPCS: 11042; 11045; A6252; A6253 ==

== ENCOUNTER → 2022-01-26 08:42 | Outpatient (BNVA) | payer MEDICARE, MEDICAID, SELFPAY | PROVIDERS: Visit Provider Nurse Practitioner Family | DX: L89.623 Pressure ulcer of left heel, stage 3 (principal); I96 Gangrene, not elsewhere classified; E11.621 Type 2 diabetes mellitus with foot ulcer; L97.822 Non-pressure chronic ulcer of other part of left lower leg with fat layer exposed; L89.892 Pressure ulcer of other site, stage 2; E11.622 Type 2 diabetes mellitus with other skin ulcer | CPT/HCPCS: 11042; A6251; A6252; A6253 ==

== ENCOUNTER 2022-02-01 12:42 | Inpatient (IN) | payer MEDICARE, MEDICAID, SELFPAY ==
[2022-02-01] VITALS (10 sets, daily range): BP systolic 122–172; BP diastolic 43–134; PULSE 72–97; RESP 16–26; TEMP 37.9–38.6; O2SAT 91–100; BMI 70.6
--- NOTE | 2022-02-01 12:45 | XRR_ITS ---
PROCEDURE INFORMATION: Exam: XR Chest Exam date and time: 02/01/2022 12:57 PM Age: 66 years old Clinical indication: Shortness of breath; Additional info: Nausea TECHNIQUE: Imaging protocol: Radiologic exam of the chest. Views: 1 view. COMPARISON: CR XR chest 1V portable [id number] 02/16/2021 11:21 AM FINDINGS: Lungs: Unremarkable. No consolidation. Pleural spaces: Unremarkable. No pleural effusion. No pneumothorax. Heart/Mediastinum: Unremarkable. No cardiomegaly. Bones/joints: Unremarkable. XR/XR chest 1V portable [id number] IMPRESSION: No acute findings.
--- NOTE | 2022-02-01 12:47 | ED_ITS ---
Documented by User: Nathen Betancourt MD 02/06/22 11:43 HPI - General Adult General: Chief complaint: General Medical Stated complaint: NAUSEA Time Seen by Provider: 02/01/22 12:45 History of Present Illness: Patient is a 66-year-old male with history atrial fibrillation, CHF, hypertension, morbid obesity presenting to the emergency room for evaluation of chills and generalized weakness and fever. Patient tells me that he has been feeling chills for the last few days. Patient reports an ongoing productive cough. Patient denies any abdominal pain, nausea/vomiting and diarrhea, change in taste or smell. No sick contacts around him. Patient denies any chest pain or shortness of breath. Onset:3 days ago Duration:3 days Location:home Severity: moderate Associated symptoms: Reports malaise; Deny chest pain, dyspnea, nausea, rash, palpitations or vomiting Review of Systems Const: Reports: fever(s), chills, malaise and other (+Generalized weakness) Eyes: Denies: change in vision ENMT: Denies: mouth pain Card: Denies: chest pain or palpitations Resp: Denies: dyspnea or non-productive cough GI: Denies: abdominal pain, nausea, vomiting or diarrhea : Denies: dysuria Musc: Denies: extremity pain Skin/Breast: Denies: rash or new lesions Neuro: Denies: weakness in extremities Psych: Reports: other (Normal mood) Leonardo/Lymph: Denies: easy bruising PFS ED PFSH: Medical History Atrial fibrillation Atrial fibrillation CHF (congestive heart failure) Fall Generalized weakness Heart failure History of end stage renal disease History of osteomyelitis HTN (hypertension) Hx of chronic arthritis Hx of hyperlipidemia Hx of low back pain Hx of obesity Hx of sleep apnea Hx of type 2 diabetes mellitus Hypertension Morbid obesity Non-pressure chronic ulcer of other part of left foot with necrosis of bone PVD (peripheral vascular disease) Surgical History History of hemicolectomy History of surgery on arm Social History Alcohol intake: never Physical Exam Const: COMMON NORMALS: alert HENMT: COMMON NORMALS: atraumatic HEAD & SCALP: atraumatic MOUTH: moist mucous membranes not abnormal Eye: COMMON NORMALS: EOMs intact bilaterally and conjunctivae normal CON JUNCTIVA: Yes conjunctivae normal Neck/C-Spine: COMMON NORMALS: full ROM and supple Resp: COMMON NORMALS: normal respiratory effort and clear to auscultation bilaterally AUSCULTATION: clear to auscultation bilaterally Cardio: COMMON NORMALS: regular rate RATE: regular rate GI: COMMON NORMALS: Soft to palpation and non-tender PALPATION: Yes Soft to palpation OTHER: +Mild abdominal distention. No focal TTP. NO guarding rebound, guarding, rigidity. No CVA tenderness to percussion. Neg Edwards/Neg McBurney's point tenderness, no suprabupic tenderness to palpation. Extremity: COMMON NORMALS: full ROM NARRATIVE EXTREMITY EXAM: 2+ edema in the lower extremities b/l Neuro: SENSORIUM/ORIENTATION: Yes alert MOTOR EXAM: No Abnormal motor strength present and Other motor observations present (no focal motor deficits) Psych: COMMON NORMALS: speech normal SPEECH: Yes normal speech MOOD & AFFECT: Yes euthymic mood Skin: OTHER: perianal abscess with tracting on the L glute with surrounding gluteal edema Course Vital Signs: Vital signs: Vital Signs Temperature 98.0 F 02/06/22 08:00 Pulse Rate 53 L 02/06/22 08:10 Respiratory Rate 18 02/06/22 08:10 Blood Pressure 130/66 02/06/22 08:00 Pulse Oximetry 93 02/06/22 08:10 Oxygen Delivery Me thod 02/06/22 08:10 Oxygen Flow Rate 84 02/05/22 20:30 Fraction of Inspir ed Oxygen 30 02/06/22 04:28 MDM - General Adult Medical Decision Making 66-year-old male with history of atrial fibrillation on Eliquis, diabetes presenting to the emergency room for concerns of fever and chills and ongoing cough. On exam, patient febrile to 1 to 1.5 degrees. Patient is noted to have white count 15.2. Physical exam, patient noted to have perianal abscess with track tracking and edema. Rest of exam is unremarkable. Patient was observed in the emergency room and is noted to have significant increased oxygen requirement. Patient has YUSRA at baseline current CPAP. However patient noted to be requiring 4 to 6 L of oxygen. X-ray chest is clear. COVID antigen is negative. CTA chest did not showed bilateral segmental PE. Patient tells me that he has been taking his Eliquis. For concerns for immunocompromise, history of diabetes, findings of renal and perirectal tract extension to the bladder, patient received vancomycin and Zosyn. I discussed case with Dr. Silver who recommended transfer for colorectal surgery. Case was discussed with Dr. Colten Bernstein who agreed with the transfer to [facility] for further management of NSTEMI, PE, perirectal abscess, and perianal sinus tract the bladder. Disposition: Transfer to outside hospital 02/03/22 Patient still pending outside bed availability. He requested eyedrops and I evaluated the patient. It sounds like he accidentally hit his face with the BiPAP mask when he was taking it off and has subsequently developed eye irritation. Initially he had mild pain which was short-lived which is now resol grzegorz. He denies changes in vision. There is subconjunctival hemorrhage with hemorrhagic chemosis that appears about 90% of the sclera. No evidence of hyphema or displacement of iris/other structures. Intraocular pressure 14. Visual acuity 20/40 bilateral/left/right. Plan to continue to monitor with consideration for ophthalmology discussion given use of anticoagulation. Ren Alan MD Emergency Medicine Lab Data : 02/06/22 05:40 02/06/22 05:40 Radiology Impressions Chest X-Ray 02/01/22 12:45 IMPRESSION: No acute findings. Chest/Abdomen/Pelvis CT 02/01/22 14:12 IMPRESSION: Exam is limited due to body habitus with beam hardening artifact and suboptimal contrast bolus. 1. Shallow inspiration. Bibasilar atelectasis. No focal pneumonia. 2. Proximal main pulmonary arteries are normal. Poor filling of the segmental and subsegmental pulmonary arteries more prominent in the RIGHT upper and lower lobe suspicious for pulmonary embolus. Evaluation is limited due to extensive beam hardening artifact. Recommend interval follow-up after treatment. 3. Again seen is the perianal abscess with sinus tract extending adjacent to the bladder. 4. Perirectal abscess portion is decreased in size today measuring 2.2 x 3.2 CM. 5. Stable [place] RIGHT ventral abdominal wall hernia with herniation of smal l bowel loops. No evidence of obstruction. Notified Nathen Betancourt MD at 02/01/2022 3:20 PM. Laboratory Results WBC 6.7 10^3/uL (4.0-10.0) 02/04/22 05:07 RBC 2.87 10^6/uL (4.1-5.3) L 02/04/22 05:07 Hgb 8.4 g/dL (11.7-16.6) L 02/04/22 05:07 Hct 28.0 % (42.0-52.0) L 02/04/22 05:07 MCV 97.6 fl (80-94) H 02/04/22 05:07 MCH 29.3 pg (28.0-34.0) 02/04/22 05:07 MCHC 30.0 g/dL (30.0-36.0) 02/04/22 05:07 RDW 15.9 % (12.1-15.1) H 02/04/22 05:07 Plt Count 156 10^3/cmm (130-400) 02/04/22 05:07 MPV 9.1 fL (7.4-10.4) 02/04/22 05:07 Neut % (Auto) 65.2 % 02/04/22 05:07 Lymph % (Auto) 14.9 % 02/04/22 05:07 [place] % (Auto) 13.2 % 02/04/22 05:07 Eos % (Auto) 4.4 % 02/04/22 05:07 Baso % (Auto) 0.6 % 02/04/22 05:07 Neut # (Auto) 4.35 10^3/uL (1.8-7.7) 02/04/22 05:07 Lymph # (Auto) 1.0 10^3/uL (0.8-4.8) 02/04/22 05:07 [place] # (Auto) 0.9 10^3/uL (0.2-0.9) 02/04/22 05:07 Eos # (Auto) 0.3 10^3/uL (0.0-0.8) 02/04/22 05:07 Baso # (Auto) 0.0 10^3/uL (0.0-0.1) 02/04/22 05:07 Nucleated RBC % (auto) 0 % 02/04/22 05:07 Nucleated RBCs # 0.0 /100WBC 02/04/22 05:07 PT 18.70 SECONDS (12.1-14.9) H 02/02/22 00:49 INR 1.53 (0.8-1.2) H 02/02/22 00:49 APTT 35.9 SECONDS (23.9-36.7) D 02/03/22 16:59 Specimen Type Arterial 02/01/22 13:27 Sample Site Radial, right 02/01/22 13:27 ABG pH 7.41 (7.35-7.45) 02/01/22 13:27 ABG pCO2 39.8 mmHg (35-45) 02/01/22 13:27 ABG pO2 47.8 mmHg (80.0-100.0) L 02/01/22 13:27 ABG HCO3 25.3 mmol/L (22-26) 02/01/22 13:27 ABG O2 Saturation 85.5 02/01/22 13:27 ABG Base Excess 0.6 mmol/L (-2.0-2.0) 02/01/22 13:27 Fidel Test Pos 02/01/22 13:27 A-a O2 Gradient 6.9 mmHg (5-10) 02/01/22 13:27 Hematocrit 33.0 % (42-52) L 02/01/22 13:27 Hgb O2 Saturation 84.6 % (95-100) L 02/01/22 13:27 Carboxyhemoglobin 1.4 %THgb (0.4-20.1) 02/01/22 13:27 Methemoglobin < 0.0 % (0.4-1.5) L 02/01/22 13:27 Total Hemoglobin 10.8 g/dL (14-18) L 02/01/22 13:27 Sodium 140.0 mmol/L (131-143) 02/01/22 13:27 Potassium 4.4 mmol/L (3.5-5.0) 02/01/22 13:27 Glucose 180.0 mg/dL (70-115) H 02/01/22 13:27 Ionized Calcium 1.1 mmol/L (1.1-1.4) 02/01/22 13:27 O2 Delivery Device Room air 02/01/22 13:27 FiO2 21.0 % 02/01/22 13:27 Simulation Specialist ID Kaila 02/01/22 13:27 Sodium 138 mmol/L (136-145) 02/04/22 05:40 Potassium 4.4 mmol/L (3.5-5.1) 02/04/22 05:40 Chloride 103 mmol/L (98-107) 02/04/22 05:40 Carbon Dioxide 24 mmol/L (22-29) 02/04/22 05:40 Anion Gap 15.4 (5-19) 02/04/22 05:40 BUN 26 mg/dL (8-23) H 02/04/22 05:40 Creatinine 1.9 mg/dL (0.7-1.2) H 02/04/22 05:40 GFR Calculation 35.9 mL/min (90-130) L 02/04/22 05:40 Glucose 173 mg/dL (65-115) H 02/04/22 05:40 POC Glucose 197 mg/dL (70-110) H 02/04/22 08:48 Calculated Osmolality 295 mOsm/kg (285-295) 02/04/22 05:40 Lactic Acid 1.4 mmol/L (0.5-2.2) 02/01/22 00:49 Calcium 8.8 mg/dL (8.5-10.5) 02/04/22 05:40 Magnesium 2.1 mg/dL (1.7-2.3) 02/04/22 05:40 Total Bilirubin 0.4 mg/dL (0.15-1.2) 02/04/22 05:40 AST 22 U/L (0-40) 02/04/22 05:40 ALT 16 U/L (0-41) 02/04/22 05:40 Alkaline Phosphatase 41 IU/L (40-130) 02/04/22 05:40 Troponin T Baseline 57 ng/L (0-15) H 02/01/22 13:06 Troponin T 120 Minute 113.7 ng/L (0-15) H 02/01/22 15:45 Delta Troponin T 56.7 ABS# (0-10) H* 02/01/22 15:45 Troponin T Hi Sens 6Hr 197.9 ng/L (0-15) H 02/01/22 19:31 Troponin T Hi Sens 6Hr Delta 140.9 ng/L (0-12) H* 02/01/22 19:31 NT-Pro-B Natriuret Pep 865 pg/mL (0-125) H 02/01/22 13:06 Total Protein 6.8 g/dL (6.6-8.7) 02/04/22 05:40 Albumin 2.9 g/dL (3.5-5.2) L 02/04/22 05:40 Globulin 3.9 g/dL (1.3-4.6) 02/04/22 05:40 Lipase 26 U/L (13-60) 02/01/22 13:06 Vitamin B12 425 pg/mL (232-1245) 02/04/22 05:40 Procalcitonin 0.90 ng/mL (0-0.5) H 02/04/22 05:40 Urine Color Yellow (Yellow) 02/01/22 19:34 Urine Appearance Clear (CLEAR) 02/01/22 19:34 Urine pH 5 (5-7) 02/01/22 19:34 Ur Specific [place] 1.015 (1.005-1.030) 02/01/22 19:34 Urine Protein Trace (Negative) 02/01/22 19:34 Urine Glucose (UA) Norm (Normal) 02/01/22 19:34 Urine Ketones Negative (Negative) 02/01/22 19:34 Urine Blood 3+ (Negative) H 02/01/22 19:34 Urine Nitrate Negative (Negative) 02/01/22 19:34 Urine Bilirubin Neg (Negative) 02/01/22 19:34 Urine Urobilinogen Norm mg/dL (Negative) 02/01/22 19:34 Ur Leukocyte Esterase Negative (Negative) 02/01/22 19:34 Urine RBC 5-10 /hpf (0-2) H 02/01/22 19:34 Urine WBC 0-4 /hpf (0-5) H 02/01/22 19:34 Ur Squamous Epith Cells 0-4 /hpf (0-5) H 02/01/22 19:34 Amorphous Sediment Not Reportable 02/01/22 19:34 Urine Bacteria Trace /hpf (NONE) 02/01/22 19:34 Vancomycin Trough 24.7 ug/mL (10-15) H 02/03/22 00:35 Coronavirus 229E (PCR) Not detected (NOT DETECT) 02/01/22 15:45 Influenza Type A Ag Negative (Negative) 02/01/22 13:40 Influenza Type B Ag Negative (Negative) 02/01/22 13:40 SARS-CoV-2 (PCR) Not detected (NOT DETECT) 02/01/22 15:45 SARS-CoV-2 Ag (Rapid) Negative (Negative) 02/01/22 13:06 Imaging Data Other Imaging: Radiologist's impression: [facility] [address] [place] [address] CT Scan Report Signed Patient: Kenney Olea Unit #: [id number] : 1955 Age/Sex: 66 / M ADM Date: 02/01/22 Loc: ER Room/Bed: Attending Dr: Ordering Provider/Ordering MD: Nathen Betancourt MD Date of Service: 02/01/22 Procedure(s): CT angio chest w abd pel w con Accession Number(s): [id number] Report Number: [id number] WS: [id number] CTA CHEST ABDOMEN AND PELVIS TECHNIQUE: Noncontrast plus contrast enhanced CTA of the chest, abdomen, and pelvis with coronal and sagittal reformatted images and additional MIP Images. CLINICAL INFORMATION: dyspnea, possible PE, leukocytosis, fever COMPARISON: December 24, 2021 DLP: 2084.[address] scans at [facility] use at least one of these dose optimization techniques: automated exposure control; mA and/or kV adjustment per patient size (includes targeted exams where dose is matched to clinical indication); or iterative reconstruction. FINDINGS: Study is limited due to body habitus and beam hardening artifact. CTA CHEST:? Shallow inspiration. Slight bibasilar atelectasis. No focal pneumonia. No acute pulmonary infiltrates. Proximal main pulmonary arteries appear normal. Heterogeneously defects in the RIGHT upper and lower segmental and subsegmental pulmonary artery suspicious for pulmonary embolus. LEFT segmental and subsegmental pulmonary arteries demonstrate better filling. Normal caliber thoracic aorta. No mediastinal or hilar lymphadenopathy. No axillary lymphadenopathy. CT ABDOMEN PELVIS Hepatomegaly. Normal spleen. Normal GE junction. Fatty atrophy of the pancreas. Adrenal glands are normal. Renal cortical atrophy. No hydronephrosis. Normal caliber abdominal aorta. Wide mouth RIGHT lower abdominal hernia with herniation of small bowel loops. No obstruction. Bladder is decompressed. Mild diffuse bladder wall thickening. Again seen is the small fluid collection in the LEFT pelvis adjacent to the urinary bladder consistent with perianal abscess with sinus tract. This appears improved compared to previous. Fluid collection in the perianal region measuring 2.2 x 3.2 CM today. Sinus tract extends adjacent to the bladder wall unchanged from previous No other significant changes compared to previous. CT/CT angio chest w abd pel w con IMPRESSION: Exam is limited due to body habitus with beam hardening artifact and suboptimal contrast bolus. ? 1.? Shallow inspiration. Bibasilar atelectasis. No focal pneumonia. 2.? Proximal main pulmonary arteries are normal. Poor filling of the segmental and subsegmental pulmonary arteries more prominent in the RIGHT upper and lower lobe suspicious for pulmonary embolus. Evaluation is limited due to extensive beam hardening artifact. Recommend interval follow-up after treatment. 3.? Again seen is the perianal abscess with sinus tract extending adjacent to the bladder. 4.? Perirectal abscess portion is decreased in size today measuring 2.2 x 3.2 CM. 5.? Stable [place] RIGHT ventral abdominal wall hernia with herniation of small bowel loops. No evidence of obstruction. ? Notified Nathen Betancourt MD at 02/01/2022 3:20 PM. ? ? Dictated By: Jamel Krueger MD Signed By: Jamel Krueger MD Signed Date/Time: 02/01/22 1530 DD/ [address] [address] XRay Report Signed Patient: Kenney Olea Unit #: [id number] : 1955 Age/Sex: 66 / M ADM Date: 02/01/22 Loc: ER Room/Bed: Attending Dr: Ordering Provider/Ordering MD: Nathen Betancourt MD Date of Service: 02/01/22 Procedure(s): XR chest 1V portable [id number] Accession Number(s): [id number] Report Number: [id number] PROCEDURE INFORMATION: Exam: XR Chest Exam date and time: 02/01/2022 12:57 PM Age: 66 years old Clinical indication: Shortness of breath; Additional info: Nausea TECHNIQUE: Imaging protocol: Radiologic exam of the chest. Views: 1 view. COMPARISON: CR XR chest 1V portable [id number] 02/16/2021 11:21 AM FINDINGS: Lungs: Unremarkable. No consolidation. Pleural spaces: Unremarkable. No pleural effusion. No pneumothorax. Heart/Mediastinum: Unremarkable. No cardiomegaly. Bones/joints: Unremarkable. XR/XR chest 1V portable [id number] IMPRESSION: No acute findings. ? Dictated By: Stephon Cooper Signed By: Stephon Cooper Signed Date/Time: 02/01/22 1331 DD/ 1257 Discharge Plan Discharge Patient Disposition: Transfer to ED Admit Provider: Shekhar Gutierrez Clinical Impression: Pulmonary embolism, MIRTA (acute kidney injury), Fever, Chill, Non-ST elevation RI (NSTEMI), Chest pain Condition: Stable Coding Level of Care Code ED Staff [employer] Officer for Chg Fwd Exam Comprehensive Documented by User: Ren Alan MD 02/04/22 11:06 HPI - General Adult General: Chief complaint: General Medical Stated complaint: NAUSEA Time Seen by Provider: 02/01/22 12:45 [facility] ED PFSH: Medical History Atrial fibrillation Atrial fibrillation CHF (congestive heart failure) Fall Generalized weakness Heart failure History of end stage renal disease History of osteomyelitis HTN (hypertension) Hx of chronic arthritis Hx of hyperlipidemia Hx of low back pain Hx of obesity Hx of sleep apnea Hx of type 2 diabetes mellitus Hypertension Morbid obesity Non-pressure chronic ulcer of other part of left foot with necrosis of bone PVD (peripheral vascular disease) Surgical History History of hemicolectomy History of surgery on arm Social History Alcohol intake: never Course Vital Signs: Vital signs: Vital Signs Temperature 98.0 F 02/06/22 08:00 Pulse Rate 53 L 02/06/22 08:10 Respiratory Rate 18 02/06/22 08:10 Blood Pressure 130/66 02/06/22 08:00 Pulse Oximetry 93 02/06/22 08:10 Oxygen Delivery Me thod 02/06/22 08:10 Oxygen Flow Rate 84 02/05/22 20:30 Fraction of Inspir ed Oxygen 30 02/06/22 04:28 MDM - General Adult Medical Decision Making 66-year-old male with history of atrial fibrillation on Eliquis, diabetes presenting to the emergency room for concerns of fever and chills and ongoing cough. On exam, patient febrile to 1 to 1.5 degrees. Patient is noted to have white count 15.2. Physical exam, patient noted to have perianal abscess with track tracking and edema. Rest of exam is unremarkable. Patient was observed in the emergency room and is noted to have significant increased oxygen requirement. Patient has YUSRA at baseline current CPAP. However patient noted to be requiring 4 to 6 L of oxygen. X-ray chest is clear. COVID antigen is negative. CTA chest did not showed bilateral segmental PE. Patient tells me that he has been taking his Eliquis. For concerns for immunocompromise, history of diabetes, findings of renal and perirectal tract extension to the bladder, patient received vancomycin and Zosyn. I discussed case with Dr. Silver who says that this is better transfer for colorectal surgery. Case was discussed with Dr. Colten Bernstein who agreed with the transfer to [facility] for further management of NSTEMI, PE, perirectal abscess, and perianal abscess with sinus tract the bladder. Disposition: Transfer to outside hospital 02/03/22 Patient still pending outside bed availability. He requested eyedrops and I evaluated the patient. It sounds like he accidentally hit his face with the BiPAP mask when he was taking it off and has subsequently developed eye irritation. Initially he had mild pain which was short-lived which is now resolved. He denies changes in vision. There is subconjunctival hemorrhage with hemorrhagic chemosis that appears about 90% of the sclera. No evidence of hyphema or displacement of iris/other structures. Intraocular pressure 14. Visual acuity 20/40 bilateral/left/right. Plan to continue to monitor with consideration for ophthalmology discussion given use of anticoagulation. Ren Alan MD Emergency Medicine Lab Data : 02/06/22 05:40 02/06/22 05:40 Radiology Impressions Chest X-Ray 02/01/22 12:45 IMPRESSION: No acute findings. Chest/Abdomen/Pelvis CT 02/01/22 14:12 IMPRESSION: Exam is limited due to body habitus with beam hardening artifact and suboptimal contrast bolus. 1. Shallow inspiration. Bibasilar atelectasis. No focal pneumonia. 2. Proximal main pulmonary arteries are normal. Poor filling of the segmental and subsegmental pulmonary arteries more prominent in the RIGHT upper and lower lobe suspicious for pulmonary embolus. Evaluation is limited due to extensive beam hardening artifact. Recommend interval follow-up after treatment. 3. Again seen is the perianal abscess with sinus tract extending adjacent to t he bladder. 4. Perirectal abscess portion is decreased in size today measuring 2.2 x 3.2 CM. 5. Stable [place] RIGHT ventral abdominal wall hernia with herniation of small bowel loops. No evidence of obstruction. Notified Nathen Betancourt MD at 02/01/2022 3:20 PM. Laboratory Results WBC 6.7 10^3/uL (4.0-10.0) 02/04/22 05:07 RBC 2.87 10^6/uL (4.1-5.3) L 02/04/22 05:07 Hgb 8.4 g/dL (11.7-16.6) L 02/04/22 05:07 Hct 28.0 % (42.0-52.0) L 02/04/22 05:07 MCV 97.6 fl (80-94) H 02/04/22 05:07 MCH 29.3 pg (28.0-34.0) 02/04/22 05:07 MCHC 30.0 g/dL (30.0-36.0) 02/04/22 05:07 RDW 15.9 % (12.1-15.1) H 02/04/22 05:07 Plt Count 156 10^3/cmm (130-400) 02/04/22 05:07 MPV 9.1 fL (7.4-10.4) 02/04/22 05:07 Neut % (Auto) 65.2 % 02/04/22 05:07 Lymph % (Auto) 14.9 % 02/04/22 05:07 [place] % (Auto) 13.2 % 02/04/22 05:07 Eos % (Auto) 4.4 % 02/04/22 05:07 Baso % (Auto) 0.6 % 02/04/22 05:07 Neut # (Auto) 4.35 10^3/uL (1.8-7.7) 02/04/22 05:07 Lymph # (Auto) 1.0 10^3/uL (0.8-4.8) 02/04/22 05:07 [place] # (Auto) 0.9 10^3/uL (0.2-0.9) 02/04/22 05:07 Eos # (Auto) 0.3 10^3/uL (0.0-0.8) 02/04/22 05:07 Baso # (Auto) 0.0 10^3/uL (0.0-0.1) 02/04/22 05:07 Nucleated RBC % (auto) 0 % 02/04/22 05:07 Nucleated RBCs # 0.0 /100WBC 02/04/22 05:07 PT 18.70 SECONDS (12.1-14.9) H 02/02/22 00:49 INR 1.53 (0.8-1.2) H 02/02/22 00:49 APTT 35.9 SECONDS (23.9-36.7) D 02/03/22 16:59 Specimen Type Arterial 02/01/22 13:27 Sample Site Radial, right 02/01/22 13:27 ABG pH 7.41 (7.35-7.45) 02/01/22 13:27 ABG pCO2 39.8 mmHg (35-45) 02/01/22 13:27 ABG pO2 47.8 mmHg (80.0-100.0) L 02/01/22 13:27 ABG HCO3 25.3 mmol/L (22-26) 02/01/22 13:27 ABG O2 Saturation 85.5 02/01/22 13:27 ABG Base Excess 0.6 mmol/L (-2.0-2.0) 02/01/22 13:27 Fidel Test Pos 02/01/22 13:27 A-a O2 Gradient 6.9 mmHg (5-10) 02/01/22 13:27 Hematocrit 33.0 % (42-52) L 02/01/22 13:27 Hgb O2 Saturation 84.6 % (95-100) L 02/01/22 13:27 Carboxyhemoglobin 1.4 %THgb (0.4-20.1) 02/01/22 13:27 Methemoglobin < 0.0 % (0.4-1.5) L 02/01/22 13:27 Total Hemoglobin 10.8 g/dL (14-18) L 02/01/22 13:27 Sodium 140.0 mmol/L (131-143) 02/01/22 13:27 Potassium 4.4 mmol/L (3.5-5.0) 02/01/22 13:27 Glucose 180.0 mg/dL (70-115) H 02/01/22 13:27 Ionized Calcium 1.1 mmol/L (1.1-1.4) 02/01/22 13:27 O2 Delivery Device Room air 02/01/22 13:27 FiO2 21.0 % 02/01/22 13:27 Simulation Specialist ID [place] 02/01/22 13:27 Sodium 138 mmol/L (136-145) 02/04/22 05:40 Potassium 4.4 mmol/L (3.5-5.1) 02/04/22 05:40 Chloride 103 mmol/L (98-107) 02/04/22 05:40 Carbon Dioxide 24 mmol/L (22-29) 02/04/22 05:40 Anion Gap 15.4 (5-19) 02/04/22 05:40 BUN 26 mg/dL (8-23) H 02/04/22 05:40 Creatinine 1.9 mg/dL (0.7-1.2) H 02/04/22 05:40 GFR Calculation 35.9 mL/min (90-130) L 02/04/22 05:40 Glucose 173 mg/dL (65-115) H 02/04/22 05:40 POC Glucose 197 mg/dL (70-110) H 02/04/22 08:48 Calculated Osmolality 295 mOsm/kg (285-295) 02/04/22 05:40 Lactic Acid 1.4 mmol/L (0.5-2.2) 02/01/22 00:49 Calcium 8.8 mg/dL (8.5-10.5) 02/04/22 05:40 Magnesium 2.1 mg/dL (1.7-2.3) 02/04/22 05:40 Total Bilirubin 0.4 mg/dL (0.15-1.2) 02/04/22 05:40 AST 22 U/L (0-40) 02/04/22 05:40 ALT 16 U/L (0-41) 02/04/22 05:40 Alkaline Phosphatase 41 IU/L (40-130) 02/04/22 05:40 Troponin T Baseline 57 ng/L (0-15) H 02/01/22 13:06 Troponin T 120 Minute 113.7 ng/L (0-15) H 02/01/22 15:45 Delta Troponin T 56.7 ABS# (0-10) H* 02/01/22 15:45 Troponin T Hi Sens 6Hr 197.9 ng/L (0-15) H 02/01/22 19:31 Troponin T Hi Sens 6Hr Delta 140.9 ng/L (0-12) H* 02/01/22 19:31 NT-Pro-B Natriuret Pep 865 pg/mL (0-125) H 02/01/22 13:06 Total Protein 6.8 g/dL (6.6-8.7) 02/04/22 05:40 Albumin 2.9 g/dL (3.5-5.2) L 02/04/22 05:40 Globulin 3.9 g/dL (1.3-4.6) 02/04/22 05:40 Lipase 26 U/L (13-60) 02/01/22 13:06 Vitamin B12 425 pg/mL (232-1245) 02/04/22 05:40 Procalcitonin 0.90 ng/mL (0-0.5) H 02/04/22 05:40 Urine Color Yellow (Yellow) 02/01/22 19:34 Urine Appearance Clear (CLEAR) 02/01/22 19:34 Urine pH 5 (5-7) 02/01/22 19:34 Ur Specific [place] 1.015 (1.005-1.030) 02/01/22 19:34 Urine Protein Trace (Negative) 02/01/22 19:34 Urine Glucose (UA) Norm (Normal) 02/01/22 19:34 Urine Ketones Negative (Negative) 02/01/22 19:34 Urine Blood 3+ (Negative) H 02/01/22 19:34 Urine Nitrate Negative (Negative) 02/01/22 19:34 Urine Bilirubin Neg (Negative) 02/01/22 19:34 Urine Urobilinogen Norm mg/dL (Negative) 02/01/22 19:34 Ur Leukocyte Esterase Negative (Negative) 02/01/22 19:34 Urine RBC 5-10 /hpf (0-2) H 02/01/22 19:34 Urine WBC 0-4 /hpf (0-5) H 02/01/22 19:34 Ur Squamous Epith Cells 0-4 /hpf (0-5) H 02/01/22 19:34 Amorphous Sediment Not Reportable 02/01/22 19:34 Urine Bacteria Trace /hpf (NONE) 02/01/22 19:34 Vancomycin Trough 24.7 ug/mL (10-15) H 02/03/22 00:35 Coronavirus 229E (PCR) Not detected (NOT DETECT) 02/01/22 15:45 Influenza Type A Ag Negative (Negative) 02/01/22 13:40 Influenza Type B Ag Negative (Negative) 02/01/22 13:40 SARS-CoV-2 (PCR) Not detected (NOT DETECT) 02/01/22 15:45 SARS-CoV-2 Ag (Rapid) Negative (Negative) 02/01/22 13:06 Discharge Plan Discharge Patient Disposition: Transfer to ED Admit Provider: Shekhar Gutierrez Clinical Impression: Pulmonary embolism, MIRTA (acute kidney injury), Fever, Chill, Non-ST elevation RI (NSTEMI), Chest pain Condition: Stable Coding Level of Care Code ED Staff [employer] Information [employer] Officer for [employer]ong Fwd Exam Comprehensive
--- NOTE | 2022-02-01 12:54 | ECG_ITS ---
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 Measurements Intervals [place] Rate: 81 P: IN: QRS: 25 QRSD: 92 T: 61 QT: 344 QTc: 400 Interpretive Statements SUPRAVENTRICULAR RHYTHM MODERATE ST DEPRESSION [0.05+ mV ST DEPRESSION] Compared to ECG 12/09/2020 15:55:14 Supraventricular rhythm now present ST (T wave) deviation now present Sinus bradycardia no longer present First degree AV block no longer present Intraventricular conduction delay no longer present Electronically Signed On 02-01-2022 21:13:08 CDT by Raúl Mckenzie M.D. [id number]
[2022-02-01] MEDS: sodium chloride 0.9% 1,000 ML 999 ML IV (13:20)
[2022-02-01] MEDS: acetaminophen 500 mg Tablet 1000 MG PO (13:20)
[2022-02-01 13:23] LABS: Basophils # 0.1 10^3/uL (0.0-0.1); Basophils % 0.4 %; Eosinophils # 0.1 10^3/uL (0.0-0.8); Eosinophils % 0.5 %; Hematocrit 34.1 % (42.0-52.0); Hemoglobin 10.3 g/dL (11.7-16.6); Lymphocytes # 0.7 10^3/uL (0.8-4.8); Lymphocytes % 4.8 %; Mean Corpuscular HGB Conc 30.2 g/dL (30.0-36.0); Mean Corpuscular Hemoglobin 28.9 pg (28.0-34.0); Mean Corpuscular Volume 95.5 fl (80-94); Mean Platelet Volume 8.5 fL (7.4-10.4); Monocytes # 1.2 10^3/uL (0.2-0.9); Neutrophils % 85.3 %; Nucleated Red Blood Cells % 0 %; Platelet Count 304 10^3/cmm (130-400); Red Blood Count 3.57 10^6/uL (4.1-5.3); Red Cell Distribution Width 15.5 % (12.1-15.1); White Blood Count 15.2 10^3/uL (4.0-10.0)
[2022-02-01 13:39] LABS: ABG PCO2 39.8 mmHg (35-45); ABG PH Result 7.41 (7.35-7.45); Alveolar-Arterial Oxygen Gradi 6.9 mmHg (5-10); Base Excess ABG 0.6 mmol/L (-2.0-2.0); Blood Gas Allen Test Pos; Blood Gas Sample Type Arterial; Carboxyhemoglobin 1.4 %THgb (0.4-20.1); HCO3 ABG 25.3 mmol/L (22-26); HGB O2 Sat 84.6 % (95-100); Ionized Calcium Level - ABG 1.1 mmol/L (1.1-1.4); Methemoglobin < 0.0 % (0.4-1.5); Oxygen Saturation ABG 85.5; PO2 ABG 47.8 mmHg (80.0-100.0); Potassium Level - ABG 4.4 mmol/L (3.5-5.0); Total Hemoglobin 10.8 g/dL (14-18)
[2022-02-01 13:40] LABS: Blood Gas Operator Identificat MONRO; Blood Gas Sample Site Radial, right; Oxygen Device ROOM AIR
[2022-02-01 13:44] LABS: Troponin(5th) Baseline 57 ng/L (0-15)
[2022-02-01 13:54] LABS: SARS Covid-2 Antigen Negative (Negative)
[2022-02-01 13:59] LABS: Alanine Aminotransferase 15 U/L (0-41); Albumin Level 3.9 g/dL (3.5-5.2); Alkaline Phosphatase 61 IU/L (40-130); Anion Gap 18.7 (5-19); Aspartate Amino Transferase 13 U/L (0-40); Blood Urea Nitrogen 24 mg/dL (8-23); Calcium 9.2 mg/dL (8.5-10.5); Carbon Dioxide 28 mmol/L (22-29); Chloride 98 mmol/L (98-107); Glomerular Filtration Rate 38.2 mL/min (90-130); Glucose 183 mg/dL (65-115); Lipase 26 U/L (13-60); Osmolality Calculated 299 mOsm/kg (285-295); Potassium 4.7 mmol/L (3.5-5.1); Sodium 140 mmol/L (136-145); Total Bilirubin 0.4 mg/dL (0.15-1.2); Total Protein 7.9 g/dL (6.6-8.7)
[2022-02-01 14:09] LABS: NT Pro B Type Natriuretic Pept 865 pg/mL (0-125)
--- NOTE | 2022-02-01 14:12 | CT_ITS ---
WS: [id number] CTA CHEST ABDOMEN AND PELVIS TECHNIQUE: Noncontrast plus contrast enhanced CTA of the chest, abdomen, and pelvis with coronal and sagittal reformatted images and additional MIP Images. CLINICAL INFORMATION: dyspnea, possible PE, leukocytosis, fever COMPARISON: December 24, 2021 DLP: 2084.[address] scans at [facility] use at least one of these dose optimization techniques: automated e xposure control; mA and/or kV adjustment per patient size (includes targeted exams where dose is matc hed to clinical indication); or iterative reconstruction. FINDINGS: Study is limited due to body habitus and beam hardening artifact. CTA CHEST: Shallow inspiration. Slight bibasilar atelectasis. No focal pneumonia. No acute pulmonary infiltrates. Proximal main pulmonary arteries appear normal. Heterogeneously defects in the RIGHT upper and lower segmental and subsegmental pulmonary artery suspicious for pulmonary embolus. LEFT segmental and subs egmental pulmonary arteries demonstrate better filling. Normal caliber thoracic aorta. No mediastinal or hilar lymphadenopathy. No axillary lymphadenopathy. CT ABDOMEN PELVIS Hepatomegaly. Normal spleen. Normal GE junction. Fatty atrophy of the pancreas. Adrenal glands are no rmal. Renal cortical atrophy. No hydronephrosis. Normal caliber abdominal aorta. Wide mouth RIGHT low er abdominal hernia with herniation of small bowel loops. No obstruction. Bladder is decompressed. Mi ld diffuse bladder wall thickening. Again seen is the small fluid collection in the LEFT pelvis adjacent to the urinary bladder consisten t with perianal abscess with sinus tract. This appears improved compared to previous. Fluid collectio n in the perianal region measuring 2.2 x 3.2 CM today. Sinus tract extends adjacent to the bladder wa ll unchanged from previous No other significant changes compared to previous. CT/CT angio chest w abd pel w con IMPRESSION: Exam is limited due to body habitus with beam hardening artifact an d suboptimal contrast bolus. 1. Shallow inspiration. Bibasilar atelectasis. No focal pneumonia. 2. Proximal main pulmonary arteries are normal. Poor filling of the segmental and subsegmental pulmonary arteries more prominent in the RIGHT upper and lower lobe suspicious for pulmonary embolus. Evaluation is limited due to extensive beam hardening artifact. Recommend interval follow-up after treatment. 3. Again seen is the perianal abscess with sinus tract extending adjacent to t he bladder. 4. Perirectal abscess portion is decreased in size today measuring 2.2 x 3.2 C M. 5. Stable [place] RIGHT ventral abdominal wall hernia with herniation of sma ll bowel loops. No evidence of obstruction. Notified Nathen Betancourt MD at 02/01/2022 3:20 PM.
--- NOTE | 2022-02-01 14:20 | PC.PHAR ---
PT UNABLE TO VERIFY- VERIFIED USING EXTERNAL MED LIST LAST FILLED- ALSO CALLED BOTH OF PTS PHARMACIES TO VERIFY LAST FILLED ON LASIX AND METOPROLOL TARTRATE BOTH WERE LAST FILLED 01/2021 BY [facility] IN [place].
[2022-02-01 14:39] LABS: Influenza A by IFA Negative (Negative); Influenza B by IFA Negative (Negative)
--- NOTE | 2022-02-01 15:02 | ECG_ITS ---
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 Measurements Intervals [place] Rate: 86 P: [place]: QRS: -19 QRSD: 96 T: 73 QT: 343 QTc: 412 Interpretive Statements Sinus rhythm with a first-degree AV block MODERATE ST DEPRESSION [0.05+ mV ST DEPRESSION] Nonspecific T wave changes Compared to ECG 02/01/2022 12:54:45 No significant changes Electronically Signed On 02-02-2022 6:46:06 CDT by Raúl Mckenzie M.D. [id number]
[2022-02-01 16:30] LABS: Troponin 5 2HR 113.7 ng/L (0-15)
[2022-02-01 16:31] LABS: Troponin 5 2HR Delta 56.7 ABS# (0-10)
[2022-02-01] MEDS: piperacillin-tazobactam 4.5 GM in sodium chloride 0.9% (plus) 50 ML IV (16:57)
[2022-02-01] MEDS: vancomycin 1,000 MG in sodium chloride 0.9% 250 ML 250 MG IV (16:57)
[2022-02-01 17:55] LABS: Adenovirus Not Detected (NOT DETECT); Chlamydia Pneumoniae Not Detected (NOT DETECT); Coronavirus 229E,HKU1,NL63,OC4 Not Detected (NOT DETECT); Human Metapneumovirus Not Detected (NOT DETECT); Human Rhinovirus/Enterovirus Not Detected (NOT DETECT); Influenza A Not Detected (NOT DETECT); Influenza A H1 Not Detected (NOT DETECT); Influenza A H1-2009 Not Detected (NOT DETECT); Influenza A H3 Not Detected (NOT DETECT); Influenza B Not Detected (NOT DETECT); Mycoplasma Pneumoniae Not Detected (NOT DETECT); Parainfluenza Virus Type 1 Not Detected (NOT DETECT); Parainfluenza Virus Type 2 Not Detected (NOT DETECT); Parainfluenza Virus Type 3 Not Detected (NOT DETECT); Parainfluenza Virus Type 4 Not Detected (NOT DETECT); Respiratory Syncytial Virus A Not Detected (NOT DETECT); Respiratory Syncytial Virus B Not Detected (NOT DETECT); SARS-COV-2 Not Detected (NOT DETECT)
[2022-02-01] MEDS: morphine 4 mg/mL SDV 1 mL IVP (18:02)
--- NOTE | 2022-02-01 18:45 | ECG_ITS ---
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 Measurements Intervals [place] Rate: 74 P: 34 ME: 232 QRS: 11 QRSD: 112 T: 50 QT: 329 QTc: 366 Interpretive Statements SINUS RHYTHM WITH FIRST DEGREE AV BLOCK MODERATE INTRAVENTRICULAR CONDUCTION DELAY [110+ ms QRS DURATION] NONSPECIFIC T-WAVE ABNORMALITY Compared to ECG 02/01/2022 15:02:09 First degree AV block now present Intraventricular conduction delay now present T-wave abnormality now present Supraventricular rhythm no longer present ST (T wave) deviation no longer present Electronically Signed On 02-02-2022 19:52:05 CDT by Lila Gerber M.D. [id number]
--- NOTE | 2022-02-01 20:00 | PC.NURSE ---
Bedside report from Vitaly CONLEYN, pt noted to have a red swollen iv site to the left ac. Vanc running stopped by Vitaly and ice applied to site.
[2022-02-01 20:05] LABS: Troponin 5 6HR 197.9 ng/L (0-15); Troponin 5 6HR Delta 140.9 ng/L (0-12)
[2022-02-01] MEDS: enoxaparin 150 mg/mL Syringe SUBCUT (20:14)
[2022-02-01 20:19] LABS: Add Urine Microscopic? YES; Bilirubin Urine Neg (Negative); Blood Urine 3+ (Negative); Glucose Urine UA Norm (Normal); Ketones Urine Negative (Negative); Leukocyte Esterase Urine Negative (Negative); Nitrate Urine Negative (Negative); Protein Urine Trace (Negative); Specific Gravity, Urine 1.015 (1.005-1.030); Urine Appearance Clear (CLEAR); Urine Color Yellow (Yellow); Urobilinogen Urine Norm (Negative); pH Urine 5 (5-7)
[2022-02-01 20:20] LABS: Add Urine Culture? No; Bacteria Urine TRACE /hpf; Squamous Epithelial Cell Urine 0-4 /hpf (0-5); WBC Urine 0-4 /hpf (0-5)
[2022-02-01] MEDS: HYDROmorphone 1 mg/mL INJ 1 mL 0.5 MG IVP (22:22)
--- NOTE | 2022-02-01 23:50 | PM.CONSULT ---
Providers/Reason For Consult Consulting Physician/Specialty*: Dr. Jie Barrera/Internal Medicine Reason for Consult*: Medical management while patient awaits transfer to [facility] (already accepted but awaiting bed) Requesting Physician: Dr. Betancourt/Emergency Medicine History of Present Illness History of Present Illness Kenney Olea is a 66 year old male with past medical history of atrial fibrillation, chronic congestive heart failure, hypertension, morbid obesity, obstructive sleep apnea, diabetes mellitus, insulin-dependent, perirectal abscess with sinus track extending adjacent to bladder presented to the ER today for fever and chills and ongoing cough at home. Patient also had a fever of 102.5. Also complained of generalized weakness and a productive cough of yellow sputum. He usually wears CPAP at night for his sleep apnea. Previously he was transferred to [facility] for further management of perirectal abscess on December 28, 2021 for higher level of care. He had debridement performed there. In ER today patient was found to have a WBC count of 15.2, bilateral segmental pulmonary embolism for which patient is already on Eliquis, troponin elevation/NSTEMI. COVID antigen negative. Chest x-ray clear. Patient requiring 4 to 6 L of oxygen. Patient received Vancomycin Zosyn and 300 mg of subcu Lovenox to treat NSTEMI. His case was discussed with Dr. Silver on-call surgeon who recommended to transfer patient to higher level of care for colorectal surgery evaluation. Case discussed with Dr. Pugh who accepted patient for transfer to [facility] for further management of NSTEMI, PE, perirectal abscess, perianal abscess with sinus tract adjacent to bladder. Patient is currently awaiting a bed opening at [facility]. Hospitalist has been consulted for medical management while patient awaits for a bed. [facility] ER currently does not have any beds. Patient is a ED to ED transfer at this time. Patient seen in ER room 3. He states he is comfortable at this time. He has been febrile throughout his ER stay. Temp 100.3 as of 1 AM. Blood pressure 122/43, pulse 90, saturating 97% on 4 L nasal cannula. Denies chest pain, shortness of breath at this time. He is congested and coughing. He states he is bringing up clear phlegm. Denies a history of COPD. States he has a CPAP at home but no nasal cannula. Medications/Allergies Home Medications Medication Instructions Recorded Confirmed Last Taken Type apixaban 5 mg tablet (Eliquis) 5 mg PO BID@0600,1700 07/15/20 02/01/22 12/24/21 History gabapentin 300 mg capsule 900 mg PO BEDTIME@2100 07/15/20 02/01/22 12/23/21 History insulin glargine 100 unit/mL (3 70 unit SUBCUT BID@0600,1700 07/15/20 02/01/22 12/24/21 History mL) subcutaneous pen (Lantus Solostar U-100 Insulin) levothyroxine 25 mcg tablet 25 mcg PO DAILY@0600 07/15/20 02/01/22 12/24/21 History ferrous sulfate 325 mg (65 mg 325 mg PO DAILY 12/09/20 02/01/22 12/24/21 History iron) tablet (iron) amiodarone 200 mg tablet 200 mg PO BID 12/24/21 02/01/22 12/24/21 History Allergies Allergy/AdvReac Type Severity Reaction Status Date / Time aspirin Allergy Unknown Verified 02/01/22 14:19 Vicodin Allergy Unknown Unknown Uncoded 02/01/22 14:19 Victoza AdvReac Mild Unknown Uncoded 02/01/22 14:19 PFSH Acute PFSH: Medical History Atrial fibrillation Atrial fibrillation CHF (congestive heart failure) Fall Generalized weakness Heart failure History of end stage renal disease History of osteomyelitis HTN (hypertension) Hx of chronic arthritis Hx of hyperlipidemia Hx of low back pain Hx of obesity Hx of sleep apnea Hx of type 2 diabetes mellitus Hypertension Morbid obesity Non-pressure chronic ulcer of other part of left foot with necrosis of bone PVD (peripheral vascular disease) Surgical History History of hemicolectomy History of surgery on arm Social History Alcohol intake: never Vitals/I&O/Wt Last Vital Signs Temp 100.3 F H 02/01/22 19:30 Pulse 90 02/01/22 22:00 Resp 26 H 02/01/22 22:22 BP 122/43 02/01/22 22:00 Pulse Ox 97 02/01/22 22:00 O2 Del Method 02/01/22 22:00 Weight last 48 hrs Weight 249.476 kg Physical Exam Narrative: Morbidly obese lar ge male laying in bed with 4 L nasal cannula at this t roxana NC/AT, EOMI, L arge neck, dry ora l mucosa, appears dehydrated Clear t o auscultation ant erior lung ty. No wheezes or óscar chi, sounds conges jameson and coughs dharmesh te a bit during in terview. Soft, non tender, visceral obesity, perirecta l area not examine d at this time. B/ L LE edema general ized, wearing comp ression stockings Data : 02/01/22 13:06 02/01/22 13:06 A&P Assessment and plan (1) Pulmonary embolism: Status: Acute (2) MIRTA (acute kidney injury): Status: Acute (3) Fever: Status: Acute (4) Chill: Status: Acute (5) Non-ST elevation MT (NSTEMI): Status: Acute (6) Chest pain: Status: Acute (7) Abscess, perirectal: Status: Acute (8) Venous ulcer of leg: Status: Acute Qualifiers: Laterality: left Qualified Code(s): I83.029 - Varicose veins of left lower extremity with ulcer of unspecified site; L97.929 - Non-pressure chronic ulcer of unspecified part of left lower leg with unspecified severity Plan #Sepsis secondary to perirectal and perianal abscess with sinus tract adjacent to bladder #NSTEMI, type I versus type II #Bilateral segmental pulmonary embolism, despite being on Eliquis at home #Acute kidney injury, creatinine 1.8 #Atrial fibrillation on amiodarone and Eliquis at home #Hypertension #Hypothyroidism #Diabetes mellitus, insulin-dependent #Morbid obesity #Obstructive sleep apnea #Anemia, most likely iron deficiency - Check lactic acid, blood cultures, urine culture, Vanco trough ?Continue patient on vancomycin and Zosyn ? Continue on IV fluids normal saline 100 cc/h. Patient did get 1 L normal saline bolus in ER -BNP 875. However patient appears dehydrated. We will continue gentle hydration as noted above. ? Delta troponin 56.7. Unsure type I versus type II MT. Denies chest pain. ? Patient received 300 mg subcu Lovenox in ER around 7 PM. We will switch to heparin drip at 7 AM due to possibility of surgery tomorrow. ? Tylenol 650 every 6 hours as needed for fever -Pain uncontrolled at this time. Morphine 4 mg is not helping him at this time. Will order Dilaudid 0.5 mg every 4 hours as needed. ? Protonix 40 twice daily ? Zofran for nausea ? Morphine 4 mg IV every 4 hour for pain ? Continue amiodarone 200 twice daily -COVID PCR, antigen, influenza A, B all negative ? Continue CPAP at nighttime -Bariatric bed has been ordered for him. Awaiting arrival. Full code DVT prophylaxis: Covered with subcu q. therapeutic Lovenox and will be starting on a heparin drip in a.m. Consult Attestations Medical Necessity Statement: Patient has been accepted for transfer at [facility] to the emergency department. He is awaiting for a bed opening. Patient will be transferred as soon as there is a bed available. Coding Level of Care Code Acute Bottle Assembler for [facility] Fwd Diagnoses Pulmonary embolism I26.99 MIRTA (acute kidney injury) N17.9 Fever R50.9 Chill R68.83 Non-ST elevation MT (NSTEMI) I21.4 Chest pain R07.9 Abscess, perirectal K61.1 Venous ulcer of leg I83.029; L97.929 Laterality: left Time Spent (min) 50
[2022-02-02] VITALS (15 sets, daily range): BP systolic 120–148; BP diastolic 48–82; PULSE 61–88; RESP 19–30; TEMP 37.2–37.3; O2SAT 85–100
--- NOTE | 2022-02-02 00:08 | PC.NURSE ---
BariBed ordered from [facility], confirmation number [id number]
--- NOTE | 2022-02-02 00:27 | PC.PHAR ---
Vancomycin is dosed at 1250mg IVPB every 8 hours to produce a predicted trough level of 17.34 (population based pharmacokinetic analysis). A trough level has been ordered from the lab to be obtained before the fourth dose to confirm and adjust if needed. The Zosyn is dosed at 3.375gm IVPB every 8 hours on the basis of the creatinine clearance level of 87.44.
[2022-02-02 01:09] LABS: INR 1.53 (0.8-1.2)
[2022-02-02 01:10] LABS: Partial Thromboplastin Time 48.1 SECONDS (23.9-36.7)
[2022-02-02 01:18] LABS: Lactic Sepsis W/Reflex 1.4 mmol/L (0.5-2.2)
[2022-02-02] MEDS: morphine 4 mg/mL SDV 1 mL IVP (01:18)
[2022-02-02] MEDS: pantoprazole 40 mg SDV IVP ×2 (01:22→14:23)
[2022-02-02] MEDS: piperacillin-tazobactam 3.375 GM in sodium chloride 0.9% (plus) 50 ML IV ×3 (01:23→18:14)
[2022-02-02] MEDS: vancomycin 1,250 MG/250 ML PIGGYBACK 250 MG IV ×2 (01:35→18:13)
[2022-02-02] MEDS: sodium chloride 0.9% 1,000 ML 100 ML IV (01:35)
[2022-02-02] MEDS: HYDROmorphone 1 mg/mL INJ 1 mL 0.5 MG IVP ×5 (03:28→21:08)
--- NOTE | 2022-02-02 07:16 | PC.NURSE ---
Heather syndrome Vanc needs to be ran at 75.
[2022-02-02 08:32] LABS: Glucose Point of Care 209 mg/dL (70-110)
[2022-02-02] MEDS: vancomycin 1,250 MG/250 ML PIGGYBACK 75 MG IV (08:36)
[2022-02-02] MEDS: insulin lispro 100 unit/1 mL SUBCUT ×2 (08:49→18:26)
[2022-02-02] MEDS: amiodarone 200 mg Tablet PO ×2 (08:49→18:13)
--- NOTE | 2022-02-02 13:59 | PM.PN ---
Subjective Subjective: We are still waiting on assignment of bed Patient is not complaining of active chest pain or shortness of breath Complaining of mild pain in his back which she describing as a lead acid Vitals/I&O/Wt Last Vital Signs Temp 99.0 F 02/02/22 04:00 Pulse 65 02/02/22 10:50 Resp 24 H 02/02/22 12:30 BP 120/69 02/02/22 08:56 Pulse Ox 100 02/02/22 10:50 O2 Del Method 02/02/22 08:56 O2 Flow Rate 4.5 02/02/22 04:00 02/01/22 02/02/22 02/02/22 22:59 06:59 14:59 Intake Total 1600 / 1600 Balance 1600 / 1600 Weight last 48 hrs Weight 249.476 kg Physical Exam Narrative: Morbidly obese Currently no active chest pain Breathing well on room air Diminished breath sounds and heart sounds Abdomen distended, soft Awake and alert Nonfocal neuro exam Unkept appearance Data : 02/01/22 13:06 02/01/22 13:06 Micro: Microbiology 02/01/22 00:40 Blood Culture - Preliminary Blood SPECIMEN COLLECTED 02/01/22 00:49 Blood Culture - Preliminary Blood SPECIMEN COLLECTED A&P Assessment and plan (1) Pulmonary embolism: Status: Acute (2) MIRTA (acute kidney injury): Status: Acute (3) Fever: Status: Acute (4) Chill: Status: Acute (5) Non-ST elevation ID (NSTEMI): Status: Acute (6) Chest pain: Status: Acute (7) Abscess, perirectal: Status: Acute (8) Venous ulcer of leg: Status: Acute Qualifiers: Laterality: left Qualified Code(s): I83.029 - Varicose veins of left lower extremity with ulcer of unspecified site; L97.929 - Non-pressure chronic ulcer of unspecified part of left lower leg with unspecified severity Plan NSTEMI Sepsis related cardiomyopathy question Continue heparin protocol for at least 48 hours No active chest pain Perirectal abscess continue vancomycin and Zosyn He is diabetic Awaiting bed placement, patient will need colorectal surgeon at [facility] fib continue amiodarone, currently on heparin drip, please do not use Lovenox I will put him on sliding scale, consistent carb diet Patient is full code Sepsis secondary to perirectal abscess, Continue IV antibiotics Acute kidney injury related to NSTEMI, sepsis Bilateral PE while being on Eliquis Attestations Medical Necessity Statement*: Awaiting bed placement Time Spent in Patient Care: 30 Coding Level of Care Code Acute Speech And Language Tutor for Chg Fwd Diagnoses Pulmonary embolism I26.99 MIRTA (acute kidney injury) N17.9 Fever R50.9 Chill R68.83 Non-ST elevation ID (NSTEMI) I21.4 Chest pain R07.9 Abscess, perirectal K61.1 Venous ulcer of leg I83.029; L97.929 Laterality: left
[2022-02-02] MEDS: insulin glargine 100 units/1 mL 10 UNIT SUBCUT (15:34)
[2022-02-02 16:38] LABS: Partial Thromboplastin Time 34.9 SECONDS (23.9-36.7)
[2022-02-02] MEDS: heparin 5,000 unit/mL INJ 1 mL IV (17:05)
[2022-02-02] MEDS: heparin drip 25,000 UNIT/500 ML PREMIX 36 UNIT IV (17:12)
[2022-02-02 17:39] LABS: Glucose Point of Care 234 mg/dL (70-110)
--- NOTE | 2022-02-02 22:43 | PC.NURSE ---
Notified nurse and respiratory of oxygen saturation.
[2022-02-03] VITALS (8 sets, daily range): BP systolic 121–163; BP diastolic 59–78; PULSE 56–62; RESP 17–24; TEMP 36.7–37; O2SAT 96–100
[2022-02-03] MEDS: piperacillin-tazobactam 3.375 GM in sodium chloride 0.9% (plus) 50 ML IV ×3 (00:52→17:19)
[2022-02-03] MEDS: pantoprazole 40 mg SDV IVP ×2 (00:52→12:15)
[2022-02-03] MEDS: HYDROmorphone 1 mg/mL INJ 1 mL 0.5 MG IVP ×3 (00:53→20:18)
[2022-02-03 01:01] LABS: Vancomycin Trough 24.7 ug/mL (10-15)
--- NOTE | 2022-02-03 01:12 | PC.PHAR ---
Vancomycin trough on dosage of 1250mg IVPB every 8 hours is 24.7.. Vancomycin is held for 24 hours and resumed at 1gm IVPB every 24 hours with a trough to be obtained before the [id number] dose.
--- NOTE | 2022-02-03 03:30 | PC.NURSE ---
THis nurse reported to room when Bipap alarm sounded. Pt was found in bed with bipap mask in right hand and right eye red and swollen. Pt states that he was taking his mask off and poked himself in the eye with the mask. Physician notifed and at bedside to assess.
[2022-02-03 05:06] LABS: Basophils # 0.1 10^3/uL (0.0-0.1); Basophils % 0.6 %; Eosinophils # 0.1 10^3/uL (0.0-0.8); Eosinophils % 0.7 %; Hematocrit 28.7 % (42.0-52.0); Hemoglobin 8.6 g/dL (11.7-16.6); Lymphocytes # 1.2 10^3/uL (0.8-4.8); Lymphocytes % 11.1 %; Mean Corpuscular Volume 96.6 fl (80-94); Mean Platelet Volume 8.5 fL (7.4-10.4); Monocytes % 9.2 %; Neutrophils # 8.37 10^3/uL (1.8-7.7); Neutrophils % 77.2 %; Nucleated Red Blood Cells % 0 %; Platelet Count 186 10^3/cmm (130-400); Red Blood Count 2.97 10^6/uL (4.1-5.3); Red Cell Distribution Width 15.7 % (12.1-15.1); White Blood Count 10.8 10^3/uL (4.0-10.0)
[2022-02-03 05:15] LABS: Partial Thromboplastin Time 39.1 SECONDS (23.9-36.7)
[2022-02-03 05:26] LABS: Alanine Aminotransferase 13 U/L (0-41); Albumin Level 2.8 g/dL (3.5-5.2); Alkaline Phosphatase 44 IU/L (40-130); Aspartate Amino Transferase 16 U/L (0-40); Blood Urea Nitrogen 24 mg/dL (8-23); Calcium 8.7 mg/dL (8.5-10.5); Carbon Dioxide 24 mmol/L (22-29); Chloride 100 mmol/L (98-107); Glomerular Filtration Rate 40.8 mL/min (90-130); Glucose 177 mg/dL (65-115); Osmolality Calculated 288 mOsm/kg (285-295); Sodium 135 mmol/L (136-145); Total Bilirubin 0.4 mg/dL (0.15-1.2); Total Protein 6.8 g/dL (6.6-8.7)
[2022-02-03 06:21] LABS: Glucose Point of Care 184 mg/dL (70-110)
[2022-02-03] MEDS: heparin drip 25,000 UNIT/500 ML PREMIX 41 UNIT IV (06:21)
--- NOTE | 2022-02-03 06:37 | PC.NURSE ---
Pt repositioned and bedsheets/chucks changed. Pt on phone with daughter and update given on pt condition and transfer status. All questions answered.
[2022-02-03 07:21] LABS: Glucose Point of Care 202 mg/dL (70-110)
--- NOTE | 2022-02-03 07:26 | PC.NURSE ---
PT LYING IN BED. PT DENIES ANY NEEDS AT THIS TIME. BLOOD SUGAR CHECKED VALUE 202.
--- NOTE | 2022-02-03 08:16 | PC.NURSE ---
DR. GARCIA GAVE VERBAL ORDERS TO ADMINISTER 5000UNIT HEPARIN BOLUS IV PER PROTOCOL.
[2022-02-03] MEDS: insulin lispro 100 unit/1 mL SUBCUT ×3 (08:26→21:07)
[2022-02-03] MEDS: amiodarone 200 mg Tablet PO (08:28)
[2022-02-03] MEDS: heparin 5,000 unit/mL INJ 1 mL IV (08:28)
[2022-02-03] MEDS: FUROsemide 20 mg Tablet PO (08:28)
--- NOTE | 2022-02-03 12:08 | PC.NURSE ---
DR. GARCIA GAVE VERBAL ORDERS TO DISCONTINUE HEPARIN DRIP.
[2022-02-03 12:43] LABS: Glucose Point of Care 200 mg/dL (70-110)
--- NOTE | 2022-02-03 13:37 | PM.MISC ---
Miscellaneous Note Purpose of Documentation: This will be his progress note from today Note: Patient injured his eye when he was maneuvering his CPAP mask overnight Heparin drip has been turned off this morning Patient is awake and alert Subconjunctival hemorrhage of right eye No blurry vision Nonfocal neuro exam Currently patient is on 3 L nasal cannula Abdomen soft Distended, with obesity Discontinue heparin Continue IV antibiotics Sliding scale Consistent carb diet Awaiting placement
[2022-02-03 17:54] LABS: Partial Thromboplastin Time 35.9 SECONDS (23.9-36.7)
[2022-02-03 18:58] LABS: Glucose Point of Care 199 mg/dL (70-110)
[2022-02-03] MEDS: artificial tears Op Oint 3.5 gm 1 APPLIC EYE-RIGHT (20:58)
[2022-02-03 21:04] LABS: Glucose Point of Care 179 mg/dL (70-110)
[2022-02-04] VITALS (10 sets, daily range): BP systolic 137–161; BP diastolic 60–71; PULSE 50–77; RESP 12–20; TEMP 36.6–37.1; O2SAT 91–98; BMI 69.8
[2022-02-04] MEDS: HYDROmorphone 1 mg/mL INJ 1 mL 0.5 MG IVP (00:46)
[2022-02-04] MEDS: piperacillin-tazobactam 3.375 GM in sodium chloride 0.9% (plus) 50 ML IV ×3 (00:46→17:51)
[2022-02-04] MEDS: pantoprazole 40 mg SDV IVP ×2 (00:46→12:21)
--- NOTE | 2022-02-04 02:23 | PC.NURSE ---
[facility] called requesting patient status update. Information relayed and questions answered. Right eye hematoma relayed to [facility] RN. [facility] RNDelgado Shrestha reports that bed availability should be assigned in AM.
[2022-02-04 05:13] LABS: Basophils % 0.6 %; Eosinophils # 0.3 10^3/uL (0.0-0.8); Eosinophils % 4.4 %; Hemoglobin 8.4 g/dL (11.7-16.6); Lymphocytes % 14.9 %; Mean Corpuscular Hemoglobin 29.3 pg (28.0-34.0); Mean Corpuscular Volume 97.6 fl (80-94); Mean Platelet Volume 9.1 fL (7.4-10.4); Monocytes # 0.9 10^3/uL (0.2-0.9); Monocytes % 13.2 %; Neutrophils # 4.35 10^3/uL (1.8-7.7); Neutrophils % 65.2 %; Nucleated Red Blood Cells % 0 %; Platelet Count 156 10^3/cmm (130-400); Red Blood Count 2.87 10^6/uL (4.1-5.3); Red Cell Distribution Width 15.9 % (12.1-15.1); White Blood Count 6.7 10^3/uL (4.0-10.0)
[2022-02-04 06:08] LABS: Alanine Aminotransferase 16 U/L (0-41); Albumin Level 2.9 g/dL (3.5-5.2); Alkaline Phosphatase 41 IU/L (40-130); Blood Urea Nitrogen 26 mg/dL (8-23); Calcium 8.8 mg/dL (8.5-10.5); Carbon Dioxide 24 mmol/L (22-29); Chloride 103 mmol/L (98-107); Globulin 3.9 g/dL (1.3-4.6); Glomerular Filtration Rate 35.9 mL/min (90-130); Glucose 173 mg/dL (65-115); Magnesium 2.1 mg/dL (1.7-2.3); Osmolality Calculated 295 mOsm/kg (285-295); Sodium 138 mmol/L (136-145); Total Bilirubin 0.4 mg/dL (0.15-1.2); Total Protein 6.8 g/dL (6.6-8.7)
[2022-02-04 06:09] LABS: Anion Gap 15.4 (5-19); Aspartate Amino Transferase 22 U/L (0-40); Potassium 4.4 mmol/L (3.5-5.1)
[2022-02-04] MEDS: ondansetron 2 mg/ML SDV 2 mL 4 MG IVP (07:44)
[2022-02-04 08:52] LABS: Glucose Point of Care 197 mg/dL (70-110)
[2022-02-04] MEDS: insulin lispro 100 unit/1 mL SUBCUT ×3 (08:59→17:51)
[2022-02-04] MEDS: FUROsemide 20 mg Tablet PO (09:03)
[2022-02-04 12:04] LABS: Glucose Point of Care 201 mg/dL (70-110)
--- NOTE | 2022-02-04 12:05 | PM.HP ---
Providers/Chief Complaint Chief Complaint: NAUSEA History of Present Illness This was a consultation note done on 02/01 Dr. Holly Olea is a 66 year old male with past medical history of atrial fibrillation, chronic congestive heart failure, hypertension, morbid obesity, obstructive sleep apnea, diabetes mellitus, insulin-dependent, perirectal abscess with sinus track extending adjacent to bladder presented to the ER today for fever and chills and ongoing cough at home.? Patient also had a fever of 102.5.? Also complained of generalized weakness and a productive cough of yellow sputum.? He usually wears CPAP at night for his sleep apnea.? Previously he was transferred to [facility] for further management of perirectal abscess on December 28, 2021 for higher level of care.? He had debridement performed there.? In ER today patient was found to have a WBC count of 15.2, bilateral segmental pulmonary embolism for which patient is already on Eliquis, troponin elevation/NSTEMI.? COVID antigen negative.? Chest x-ray clear.? Patient requiring 4 to 6 L of oxygen.? Patient received Vancomycin Zosyn and 300 mg of subcu Lovenox to treat NSTEMI.? His case was discussed with Dr. Silver on-call surgeon who recommended to transfer patient to higher level of care for colorectal surgery evaluation.? Case discussed with Dr. Pugh who accepted patient for transfer to [facility] for further management of NSTEMI, PE, perirectal abscess, perianal abscess with sinus tract adjacent to bladder.? Patient is currently awaiting a bed opening at [facility]. Hospitalist has been consulted for medical management while patient awaits for a bed.? [facility] ER currently does not have any beds.? Patient is a ED to ED transfer at this time. Patient seen in ER room 3. ER course Patient did receive heparin for 48 hours, he developed right eyes subconjunctival hemorrhage after a trauma from his CPAP mask intraocular pressure is 14, no changes in visual acuity He remained afebrile He did receive diuretics in the ER, amiodarone discontinued for his A. fib with slow ventricular response, intermittent junctional rhythm as well hemodynamically stable ED physician did speak with Dr. Alexander who is not planning for any intervention, recommended IR related drainage, Dr. Guerin spoke with the IR, considering the fact he has remained afebrile and leukocytosis trending down they have not recommended any intervention at this point hence hospital service has been requested to admit the patient, he has not received a bed number in last 72 hours by [facility] or [facility]. Will admit him to [facility] Continue antibiotics Will get opinion from Dr. Alexander Review of Systems Const: Reports: chills and body aches Eyes: Reports: eye discomfort and eye redness; Denies: change in vision ENMT: Denies: throat pain Card: Reports: swelling of feet/ankles, dyspnea on exertion and orthopnea; Denies: chest pain Resp: Reports: dyspnea GI: Denies: abdominal pain : Denies: flank pain Musc: Denies: neck pain Skin/Breast: Reports: lesions Neuro: Denies: headache(s) Psych: Denies: anxiety Endo: Denies: polyuria Leonardo/Lymph: Denies: easy bruising All/Imm: Denies: urticaria Medications/Allergies Home Medications Medication Instructions Recorded Confirmed Last Taken Type apixaban 5 mg tablet (Eliquis) 5 mg PO BID@0600,1700 07/15/20 02/01/22 12/24/21 History gabapentin 300 mg capsule 900 mg PO BEDTIME@2100 07/15/20 02/01/22 12/23/21 History insulin glargine 100 unit/mL (3 70 unit SUBCUT BID@0600,1700 07/15/20 02/01/22 12/24/21 History mL) subcutaneous pen (Lantus Solostar U-100 Insulin) levothyroxine 25 mcg tablet 25 mcg PO DAILY@0600 07/15/20 02/01/22 12/24/21 History ferrous sulfate 325 mg (65 mg 325 mg PO DAILY 12/09/20 02/01/22 12/24/21 History iron) tablet (iron) amiodarone 200 mg tablet 200 mg PO BID 12/24/21 02/01/22 12/24/21 History Allergies Allergy/AdvReac Type Severity Reaction Status Date / Time aspirin Allergy Unknown Verified 02/01/22 14:19 Vicodin Allergy Unknown Unknown Uncoded 02/01/22 14:19 Victoza AdvReac Mild Unknown Uncoded 02/01/22 14:19 PFSH Acute PFSH: Medical History Atrial fibrillation Atrial fibrillation CHF (congestive heart failure) Fall Generalized weakness Heart failure History of end stage renal disease History of osteomyelitis HTN (hypertension) Hx of chronic arthritis Hx of hyperlipidemia Hx of low back pain Hx of obesity Hx of sleep apnea Hx of type 2 diabetes mellitus Hypertension Morbid obesity Non-pressure chronic ulcer of other part of left foot with necrosis of bone PVD (peripheral vascular disease) Surgical History History of hemicolectomy History of surgery on arm Social History Alcohol intake: never Vitals/I&O/Wt Last Vital Signs Temp 98.2 F 02/04/22 05:16 Pulse 56 L 02/04/22 09:08 Resp 15 02/04/22 09:08 BP 146/64 02/04/22 09:08 Pulse Ox 92 02/04/22 09:08 O2 Del Method 02/04/22 09:08 O2 Flow Rate 3 02/03/22 20:14 FiO2 21 02/02/22 21:51 02/03/22 02/04/22 02/04/22 22:59 06:59 14:59 Intake Total 250 / 537.117 50 / 587.117 Output Total 300 / 700 400 / 1100 Balance -50 / -162.883 -350 / -512.883 Physical Exam Narrative: Morbidly obese male Unkept appearance Generalized anasarca Distended abdomen nontender Abdominal fold intertrigo Venous stasis dermatitis Significant edema of lower extremity Patient does use CPAP overnight Awake and alert Hemodynamically stable S1, S2 variable Nonfocal neuro exam Not able to examine his back Data : 02/04/22 05:07 02/04/22 05:40 A&P Assessment and plan (1) Sepsis: Status: Acute (2) Perirectal abscess: Status: Acute (3) Non-ST elevation [place] (NSTEMI): Status: Acute (4) Abscess, perirectal: Status: Acute (5) Venous ulcer of leg: Status: Acute Qualifiers: Laterality: left Qualified Code(s): I83.029 - Varicose veins of left lower extremity with ulcer of unspecified site; L97.929 - Non-pressure chronic ulcer of unspecified part of left lower leg with unspecified severity (6) Diabetes: Status: Acute (7) Sleep apnea: Status: Acute (8) Pulmonary embolism: Status: Acute (9) Acute kidney injury superimposed on chronic kidney disease: Status: Acute (10) Iron deficiency anemia: Status: Acute Plan Sepsis related to very anal abscess with sinus tract adjacent to the bladder He received IV antibiotics in last 72 hours Leukocytosis trending down Cultures negative to date Afebrile Patient has improved Sepsis resolved, last episode of fever 02/01 We could not find a bed for him at tertiary centers Plan to admit him to [facility] continue IV antibiotics Dr. Alexander recommended IR drainage however IR has not recommended intervention at this point due to the fact he has improved sepsis is resolving Considering creatinine 1.9 I would use linezolid and renally dosed Zosyn NSTEMI: Likely type II [place] related to sepsis No active chest pain, will request echo with contrast Finished 48-hour heparin protocol ST depression improved, current EKG showing sinus rhythm without ischemic or infarctive changes Macrocytic anemia Acute on chronic Acute GI bleed Check B12 Hemoglobin stable Acute on chronic kidney disease Related to fluid overload I do not see any signs of contraction alkalosis Continue IV diuretics Creatinine 1.9 Baseline creatinine seems to be around 1.6-1.9 Full code Cardiac consistent carb diet DVT prophylaxis Heparin Attestations Medical Necessity Statement*: Anticipating more than 2 midnights in the hospital Time Spent in Patient Care: 40 Coding Level of Care Code Acute 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
--- NOTE | 2022-02-04 12:17 | USCV_ITS ---
Kenney Olea Age: 66 Gender: M : 1955 Exam Date: 02/04/2022 13:59 Ordering Phys: Shekhar Gutierrez MD Technologist: IBRAHIMA Exam Location: [facility] [place] Indication: CHRONIC HEART FAILURE BP: / HR: Rhythm: Sinus Technical Quality: Very technically difficult study MEASUREMENTS (Male / Female) Normal Values FINDINGS Left Ventricle UNABLE TO PREFORM ECHO PT IS MORBIDLY OBESE, UNABLE TO VISUALIZE HEART Right Ventricle Right Atrium Left Atrium Mitral Valve Aortic Valve Tricuspid Valve Pulmonic Valve Pericardium Aorta IVC CONCLUSIONS Unable to visualize the heart-because the patient's body habitus Study was not performed Dr Raúl Mckenzie MD FAC (Electronically Signed) Final Date: 04 February 2022 19:37 S
[2022-02-04 13:12] LABS: Vitamin B12 425 pg/mL (232-1245)
[2022-02-04] MEDS: FUROsemide 20 mg Tablet 40 MG PO (13:47)
[2022-02-04] MEDS: heparin 5,000 unit/mL INJ 1 mL 5000 UNIT SUBCUT (13:47)
[2022-02-04] MEDS: linezolid premix 600 MG/300 ML PREMIX 300 MG IV (13:48)
[2022-02-04 17:15] LABS: Estmated Average Glucose 169; Hemoglobin A1C 7.5 % (4.0-6.0)
[2022-02-04 17:50] LABS: Glucose Point of Care 188 mg/dL (70-110)
[2022-02-04] MEDS: morphine IR 15 mg Tablet PO (17:59)
--- NOTE | 2022-02-04 18:35 | PC.NURSE ---
Pt daughter called October regarding patient, daughter states patient sees wound care q Monday for his legs and he has home health that comes and does his cooking and cleaning. Daughter and patient was unable to get a nurse for home health so she hired someone privately to care for patient wounds due to patient unable to dress buttock wounds. Pt lives at home alone, is able to walk very short distances with his walker. Daughter is wondering about placement possibly for him at discharge.
[2022-02-04] MEDS: insulin glargine 100 units/1 mL 50 UNIT SUBCUT (21:59)
[2022-02-04 22:18] LABS: Glucose Point of Care 165 mg/dL (70-110)
[2022-02-05] VITALS (12 sets, daily range): BP systolic 130–165; BP diastolic 63–74; PULSE 40–84; RESP 14–26; TEMP 36.6–36.9; O2SAT 93–99
[2022-02-05] MEDS: linezolid premix 600 MG/300 ML PREMIX 300 MG IV ×2 (00:48→12:03)
[2022-02-05] MEDS: piperacillin-tazobactam 3.375 GM in sodium chloride 0.9% (plus) 50 ML IV ×2 (00:49→08:28)
[2022-02-05] MEDS: heparin 5,000 unit/mL INJ 1 mL 5000 UNIT SUBCUT ×2 (00:49→11:58)
[2022-02-05 01:27] LABS: Vancomycin Trough 8.6 ug/mL (10-15)
[2022-02-05 04:14] LABS: Basophils % 0.4 %; Eosinophils # 0.3 10^3/uL (0.0-0.8); Hematocrit 28.2 % (42.0-52.0); Hemoglobin 8.5 g/dL (11.7-16.6); Lymphocytes # 1.3 10^3/uL (0.8-4.8); Lymphocytes % 16.5 %; Mean Corpuscular HGB Conc 30.1 g/dL (30.0-36.0); Mean Corpuscular Hemoglobin 28.9 pg (28.0-34.0); Mean Corpuscular Volume 95.9 fl (80-94); Mean Platelet Volume 9.5 fL (7.4-10.4); Monocytes # 0.8 10^3/uL (0.2-0.9); Monocytes % 10.2 %; Neutrophils # 5.05 10^3/uL (1.8-7.7); Neutrophils % 66.8 %; Nucleated Red Blood Cells % 0 %; Platelet Count 246 10^3/cmm (130-400); Red Blood Count 2.94 10^6/uL (4.1-5.3); Red Cell Distribution Width 15.6 % (12.1-15.1); White Blood Count 7.6 10^3/uL (4.0-10.0)
[2022-02-05 04:35] LABS: Alanine Aminotransferase 16 U/L (0-41); Albumin Level 3.1 g/dL (3.5-5.2); Alkaline Phosphatase 45 IU/L (40-130); Blood Urea Nitrogen 28 mg/dL (8-23); C Reactive Protein 66.3 mg/L (0.0-4.9); Calcium 8.5 mg/dL (8.5-10.5); Carbon Dioxide 26 mmol/L (22-29); Chloride 103 mmol/L (98-107); Glomerular Filtration Rate 38.2 mL/min (90-130); Glucose 157 mg/dL (65-115); Magnesium 1.8 mg/dL (1.7-2.3); Osmolality Calculated 299 mOsm/kg (285-295); Sodium 140 mmol/L (136-145); Total Bilirubin 0.3 mg/dL (0.15-1.2); Total Protein 6.1 g/dL (6.6-8.7)
[2022-02-05 04:49] LABS: Anion Gap 15.3 (5-19); Aspartate Amino Transferase 18 U/L (0-40); Potassium 4.3 mmol/L (3.5-5.1)
[2022-02-05 05:31] LABS: Slide Review Slide Review Perform
[2022-02-05 06:14] LABS: Glucose Point of Care 159 mg/dL (70-110)
[2022-02-05] MEDS: lanolin oint 7 gm 1 APPLIC TOPICAL (08:24)
[2022-02-05] MEDS: insulin lispro 100 unit/1 mL SUBCUT ×3 (08:24→18:03)
[2022-02-05] MEDS: FUROsemide 20 mg Tablet 40 MG PO (08:26)
[2022-02-05] MEDS: insulin glargine 100 units/1 mL 50 UNIT SUBCUT ×2 (08:26→20:45)
[2022-02-05] MEDS: sennosides-docusate Tablet 1 TAB PO (08:26)
[2022-02-05] MEDS: artificial tears Op Oint 3.5 gm 1 APPLIC EYE-RIGHT ×2 (08:30→18:07)
--- NOTE | 2022-02-05 12:07 | P.PN_ITS ---
Subjective Subjective: Hemoglobin remained stable No overnight events Patient is still due for a bowel movement Leukocytosis trending down Afebrile Blood pressure is stable Vitals/I&O/Wt Last Vital Signs Temp 98.3 F 02/05/22 08:00 Pulse 53 L 02/05/22 08:37 Resp 20 H 02/05/22 08:37 BP 156/67 02/05/22 08:00 Pulse Ox 94 02/05/22 08:37 O2 Del Method 02/05/22 08:37 O2 Flow Rate 3 02/03/22 20:14 FiO2 30 02/04/22 20:50 02/04/22 02/05/22 02/05/22 22:59 06:59 14:59 Intake Total 50 / 400 350 / 750 120 / 120 Output Total 375 / 375 475 / 850 325 / 325 Balance -325 / 25 -125 / -100 -205 / -205 Weight last 48 hrs Weight 246.811 kg Physical Exam Narrative: Patient is laying supine Has not been able to get up and get out of the bed No abdominal pain Right conjunctival hemorrhage stable No change in visual acuity Distended abdomen nontender Signs of CHF lower extremity edema I have not examined his back Nonlabored breathing Currently on room air Data : 02/05/22 03:50 02/05/22 03:50 A&P Assessment and plan (1) Iron deficiency anemia: Status: Acute (2) Acute kidney injury superimposed on chronic kidney disease: Status: Acute (3) Sleep apnea: Status: Acute (4) Diabetes: Status: Acute (5) Perirectal abscess: Status: Acute (6) Sepsis: Status: Acute (7) Pulmonary embolism: Status: Acute (8) MIRTA (acute kidney injury): Status: Acute (9) Non-ST elevation [place] (NSTEMI): Status: Acute (10) Abscess, perirectal: Status: Acute (11) Venous ulcer of leg: Status: Acute Qualifiers: Laterality: left Qualified Code(s): I83.029 - Varicose veins of left lower extremity with ulcer of unspecified site; L97.929 - Non-pressure chronic ulcer of unspecified part of left lower leg with unspecified severity Plan Sepsis related to anal abscess with sinus tract adjacent to the bladder: Resolved De-escalate antibiotics today Cultures negative to date There is no plan for intervention for now NSTEMI: Type II [place] related to sepsis Macrocytic anemia: Hemoglobin has remained stable Acute on chronic kidney disease: Creatinine is stable for now Type 2 diabetes: Euglycemic If there is no plan for intervention I will plan to discharge him from the hospital to his home in next 48 hours Patient is full code Consistent carb diet Right subconjunctival hemorrhage: Intraocular pressure 14, no visual acuity change, continue artificial/saline drops DVT prophylaxis I will put on hold because of his subconjunctival hemorrhage Attestations Medical Necessity Statement*: Plan disposition Time Spent in Patient Care: 30 Coding Level of Care Code Acute Implementation Director for g Fwd Diagnoses Iron deficiency anemia D50.9 Acute kidney injury superimposed on chronic kidney disease N17.9; N18.9 Sleep apnea G47.30 Diabetes E11.9 Perirectal abscess K61.1 Sepsis A41.9 Pulmonary embolism I26.99 MIRTA (acute kidney injury) N17.9 Non-ST elevation [place] (NSTEMI) I21.4 Abscess, perirectal K61.1 Venous ulcer of leg I83.029; L97.929 Laterality: left
[2022-02-05 12:14] LABS: Glucose Point of Care 200 mg/dL (70-110)
[2022-02-05] MEDS: clindamycin 150 mg Capsule 300 MG PO ×2 (13:11→18:03)
[2022-02-05 17:26] LABS: Glucose Point of Care 160 mg/dL (70-110)
[2022-02-05] MEDS: amoxicillin-clav 875-125 mg Tablet 1 TAB PO (18:02)
[2022-02-05] MEDS: morphine IR 15 mg Tablet PO (18:02)
[2022-02-05 21:20] LABS: Glucose Point of Care 158 mg/dL (70-110)
[2022-02-06] VITALS (9 sets, daily range): BP systolic 130–163; BP diastolic 66–75; PULSE 40–65; RESP 15–22; TEMP 36.7–37.3; O2SAT 93–99
[2022-02-06] MEDS: clindamycin 150 mg Capsule 300 MG PO ×3 (02:07→12:04)
[2022-02-06 05:59] LABS: Basophils # 0.1 10^3/uL (0.0-0.1); Basophils % 0.7 %; Eosinophils # 0.3 10^3/uL (0.0-0.8); Eosinophils % 4.1 %; Hematocrit 29.6 % (42.0-52.0); Hemoglobin 8.5 g/dL (11.7-16.6); Lymphocytes # 1.8 10^3/uL (0.8-4.8); Lymphocytes % 24.3 %; Mean Corpuscular HGB Conc 28.7 g/dL (30.0-36.0); Mean Corpuscular Hemoglobin 28.6 pg (28.0-34.0); Mean Corpuscular Volume 99.7 fl (80-94); Mean Platelet Volume 8.4 fL (7.4-10.4); Monocytes # 0.8 10^3/uL (0.2-0.9); Monocytes % 11.1 %; Neutrophils # 4.06 10^3/uL (1.8-7.7); Neutrophils % 55.8 %; Nucleated Red Blood Cells % 0 %; Platelet Count 263 10^3/cmm (130-400); Red Blood Count 2.97 10^6/uL (4.1-5.3); Red Cell Distribution Width 15.4 % (12.1-15.1); White Blood Count 7.3 10^3/uL (4.0-10.0)
[2022-02-06 06:24] LABS: Anion Gap 14.6 (5-19); Blood Urea Nitrogen 25 mg/dL (8-23); Calcium 8.8 mg/dL (8.5-10.5); Carbon Dioxide 28 mmol/L (22-29); Chloride 102 mmol/L (98-107); Glomerular Filtration Rate 38.2 mL/min (90-130); Glucose 116 mg/dL (65-115); Osmolality Calculated 297 mOsm/kg (285-295); Potassium 3.6 mmol/L (3.5-5.1); Sodium 141 mmol/L (136-145)
[2022-02-06 06:33] LABS: Slide Review Slide Review Perform
[2022-02-06 06:39] LABS: Glucose Point of Care 124 mg/dL (70-110)
[2022-02-06] MEDS: FUROsemide 20 mg Tablet 40 MG PO (08:48)
[2022-02-06] MEDS: amoxicillin-clav 875-125 mg Tablet 1 TAB PO (08:48)
[2022-02-06] MEDS: sennosides-docusate Tablet 1 TAB PO (08:48)
[2022-02-06] MEDS: insulin glargine 100 units/1 mL 50 UNIT SUBCUT (08:49)
--- NOTE | 2022-02-06 09:45 | P.CONIM_ITS ---
Providers/Reason For Consult Consulting Physician/Specialty*: Hospitalist service Reason for Consult*: Perianal abscess Attending Physician: Shekhar Gutierrez MD History of Present Illness History of Present Illness Kenney Olea is a 66 year old male, morbidly obese for previously undergone incision and drainage of a perirectal abscess and [facility] 3 weeks ago as per patient. The patient is subsequently being packed but now is no longer being packed. Patient presented on this occasion with nausea. He was waiting for bed at [facility] and in the meantime his white count had trended down to normal. He still had some perianal discomfort but denies any fevers or chills. His white count is 15.2 on presentation and is down to 7.3 today.Patient is tolerating a regular diet. Medications/Allergies Home Medications Medication Instructions Recorded Confirmed Last Taken Type apixaban 5 mg tablet (Eliquis) 5 mg PO BID@0600,1700 07/15/20 02/01/22 12/24/21 History gabapentin 300 mg capsule 900 mg PO BEDTIME@2100 07/15/20 02/01/22 12/23/21 History insulin glargine 100 unit/mL (3 70 unit SUBCUT BID@0600,1700 07/15/20 02/01/22 12/24/21 History mL) subcutaneous pen (Lantus Solostar U-100 Insulin) levothyroxine 25 mcg tablet 25 mcg PO DAILY@0600 07/15/20 02/01/22 12/24/21 History ferrous sulfate 325 mg (65 mg 325 mg PO DAILY 12/09/20 02/01/22 12/24/21 History iron) tablet (iron) amiodarone 200 mg tablet 200 mg PO BID 12/24/21 02/01/22 12/24/21 History Allergies Allergy/AdvReac Type Severity Reaction Status Date / Time aspirin Allergy Unknown Verified 02/01/22 14:19 Vicodin Allergy Unknown Unknown Uncoded 02/01/22 14:19 Victoza AdvReac Mild Unknown Uncoded 02/01/22 14:19 Current Medications Generic Name Dose Route Start Last Admin Trade Name Freq PRN Reason Stop Dose Admin Amoxicillin/Clavulanate Potassium 1 tab 02/05/22 18:00 02/06/22 08:48 Amoxicillin-Clav 875-125 Mg Tablet PO 1 tab BID CRUZ Administration Protocol Artificial Tears 1 applic 08/04/22 19:32 02/05/22 18:07 Artificial Tears Op Oint 3.5 Gm EYE-RIGHT 1 applic TID PRN Administration irritation Clindamycin HCl 300 mg 02/05/22 13:00 02/06/22 07:41 Clindamycin 150 Mg Capsule PO 300 mg Q6H CRUZ Administration Protocol Furosemide 40 mg 02/04/22 12:30 02/06/22 08:48 Furosemide 20 Mg Tablet PO 40 mg DAILY CRUZ Administration Insulin Glargine 50 unit 02/04/22 21:00 02/06/22 08:49 Insulin Glargine 100 Units/1 Ml SUBCUT 50 unit BID@0900,2100 CRUZ Administration Insulin Human Lispro 0 unit 02/02/22 18:00 02/06/22 07:19 Insulin Lispro 100 Unit/1 Ml SUBCUT Not Given TIDWM CRUZ Protocol Lanolin 1 applic 02/05/22 07:15 02/05/22 08:24 Lanolin Oint 7 Gm TOPICAL 1 applic PRN PRN Administration DRYNESS Morphine Sulfate 15 mg 02/04/22 12:16 02/05/22 18:02 Morphine Ir 15 Mg Tablet PO 15 mg Q6H PRN Administration pAIN Senna/Docusate Sodium 1 tab 02/05/22 09:00 02/06/22 08:48 Sennosides-Docusate Tablet PO 1 tab DAILY CRUZ Administration PFSH Acute PFSH: Medical History Atrial fibrillation Atrial fibrillation CHF (congestive heart failure) Fall Generalized weakness Heart failure History of end stage renal disease History of osteomyelitis HTN (hypertension) Hx of chronic arthritis Hx of hyperlipidemia Hx of low back pain Hx of obesity Hx of sleep apnea Hx of type 2 diabetes mellitus Hypertension Morbid obesity Non-pressure chronic ulcer of other part of left foot with necrosis of bone PVD (peripheral vascular disease) Surgical History History of hemicolectomy History of surgery on arm Social History Alcohol intake: never Vitals/I&O/Wt Last Vital Signs Temp 98.0 F 02/06/22 08:00 Pulse 53 L 02/06/22 08:10 Resp 18 02/06/22 08:10 BP 130/66 02/06/22 08:00 Pulse Ox 93 02/06/22 08:10 O2 Del Method 02/06/22 08:10 O2 Flow Rate 84 02/05/22 20:30 FiO2 30 02/06/22 04:28 02/05/22 02/06/22 02/06/22 22:59 06:59 14:59 Intake Total 240 / 1830 880 / 1830 120 / 120 Output Total 1450 / 2750 625 / 2750 Balance -1210 / -920 255 / -920 120 / 120 Weight last 48 hrs Weight 551 lb 3.2 oz Weight 544 lb 2 oz Physical Exam Narrative: HEENT: Normocephalic Eye: Sclera /conjunctiva normal Abdomen: Soft to palpation, incarcerated ventral hernia Neurological: Oriented to place person and time Skin: Intact, areas of skin breakdown in the gluteal/perianal area, and tender but no evidence of induration or fluctuance noted Data : 02/06/22 05:40 02/06/22 05:40 A&P Assessment and plan (1) Perirectal abscess: 66-year-old male morbidly obese with a BMI of 70 who had previously undergone incision and drainage of a perirectal abscess in [place] in December 2021. Patient presented with nausea and a CT abdomen and pelvis had shown a 2.2 x 3.2 cm collection. He was treated with IV clindamycin and Augmentin while waiting for a bed at [facility]. In the meantime his white count has come down from 15 to 7 and he has been afebrile. Patient and his family would like transfer to [place] and he is being transferred today Status: Acute Coding Level of Care Code Acute Application Integration Specialist for [facility] Diagnoses Perirectal abscess K61.1
[2022-02-06 11:12] LABS: Glucose Point of Care 166 mg/dL (70-110)
[2022-02-06] MEDS: insulin lispro 100 unit/1 mL SUBCUT (12:04)
--- NOTE | 2022-02-06 12:15 | P.TS_ITS ---
Transfer Summary Providers Date of Admission: 02/04/22 10:37 Date of Discharge/Transfer: 02/06/22 Attending Provider at Admission: Shekhar Gutierrez MD Attending Provider at Transfer: Shekhar Gutierrez MD Transfer Plans: Anticipated date of transfer: 02/06/22 . Diagnoses at Discharge Discharge Diagnosis (1) Iron deficiency anemia: Status: Acute (2) Acute kidney injury superimposed on chronic kidney disease: Status: Acute (3) Sleep apnea: Status: Acute (4) Diabetes: Status: Acute (5) Perirectal abscess: Status: Acute (6) Sepsis: Status: Acute (7) Pulmonary embolism: Status: Acute (8) MIRTA (acute kidney injury): Status: Acute (9) Non-ST elevation ID (NSTEMI): Status: Acute (10) Abscess, perirectal: Status: Acute (11) Venous ulcer of leg: Status: Acute Qualifiers: Laterality: left Qualified Code(s): I83.029 - Varicose veins of left lower extremity with ulcer of unspecified site; L97.929 - Non-pressure chronic ulcer of unspecified part of left lower leg with unspecified severity Reason for Visit Reason for Visit NAUSEA Hospital Course Hospital Course Patient was admitted for management evaluation of sepsis related to perianal abscess 2.2 x 3.2 cm(size decreased as compared to previous 5 x 2.8 cm), he was accepted at [facility] to a [facility] bed, for 72 hours we were able to find a bed for him, ER physician Dr. Guerin asked me to admit to [facility], this case was discussed with general surgery, and IR considering improvement of sepsis, afebrile, cultures negative to date decision was made to not intervene at this point, however patient is stating that he would like to get opinion from colorectal surgeon and afraid that he might get worse down the road he would like to get looked at by a colorectal surgeon at [facility]. On 02/06 we did receive a phone call from [place] about his bed number. At this point he is on clindamycin and Augmentin. White count 7.3, afebrile. Cultures negative to date. Kidney function at baseline. During his hospitalization he was treated for NSTEMI with heparin which was discontinued after 48 hours. He also suffered from subconjunctival hemorrhage of right eye due to trauma from BiPAP mask. Artificial/saline drops were used. No visual acuity change intraocular pressure 14. Patient and his daughter in agreement to be transferred to [place]. Please note on 12/28 he was transferred to [place] for management of his perianal abscess. Hospital at [place] was approached this time surgeon stated that they do not have a bariatric bed and [facility] would be a better choice. CT/CT angio chest w abd pel w con IMPRESSION: Exam is limited due to body habitus with beam hardening artifact and suboptimal contrast bolus. ? 1.? Shallow inspiration. Bibasilar atelectasis. No focal pneumonia. 2.? Proximal main pulmonary arteries are normal. Poor filling of the segmental and subsegmental pulmonary arteries more prominent in the RIGHT upper and lower lobe suspicious for pulmonary embolus. Evaluation is limited due to extensive beam hardening artifact. Recommend interval follow-up after treatment. 3.? Again seen is the perianal abscess with sinus tract extending adjacent to the bladder. 4.? Perirectal abscess portion is decreased in size today measuring 2.2 x 3.2 CM. 5.? Stable [place] RIGHT ventral abdominal wall hernia with herniation of small bowel loops. No evidence of obstruction Physical Exam Narrative: Morbidly obese male Unkept appearance Generalized anasarca Distended abdomen nontender Abdominal fold intertrigo Venous stasis dermatitis Significant edema of lower extremity Patient does use CPAP overnight Awake and alert Hemodynamically stable S1, S2 variable Nonfocal neuro exam TS Data Studies Completed and Pending Pending at discharge Category Date Time Status Blood Culture Stat Lab 02/01/22 00:40 Results Labs from last 24 hours 02/06/22 02/06/22 02/06/22 11:02 06:12 05:40 WBC RBC Hgb Hct MCV MCH MCHC RDW Plt Count MPV Neut % (Auto) Lymph % (Auto) [place] % (Auto) Eos % (Auto) Baso % (Auto) Neut # (Auto) Lymph # (Auto) [place] # (Auto) Eos # (Auto) Baso # (Auto) Nucleated RBC % (auto) Nucleated RBCs # Sodium 141 Potassium 3.6 Chloride 102 Carbon Dioxide 28 Anion Gap 14.6 BUN 25 H Creatinine 1.8 H GFR Calculation 38.2 L Glucose 116 H POC Glucose 166 H 124 H Calculated Osmolality 297 H Calcium 8.8 02/06/22 02/05/22 02/05/22 05:40 21:02 16:57 WBC 7.3 RBC 2.97 L Hgb 8.5 L Hct 29.6 L MCV 99.7 H MCH 28.6 MCHC 28.7 L RDW 15.4 H Plt Count 263 MPV 8.4 Neut % (Auto) 55.8 Lymph % (Auto) 24.3 [place] % (Auto) 11.1 Eos % (Auto) 4.1 Baso % (Auto) 0.7 Neut # (Auto) 4.06 Lymph # (Auto) 1.8 [place] # (Auto) 0.8 Eos # (Auto) 0.3 Baso # (Auto) 0.1 Nucleated RBC % (auto) 0 Nucleated RBCs # 0.0 Sodium Potassium Chloride Carbon Dioxide Anion Gap BUN Creatinine GFR Calculation Glucose POC Glucose 158 H 160 H Calculated Osmolality Calcium Completed Studies During Hospitalization Category Date Time Status CT angio chest w abd pel w con Urgent Cat Scan 02/01/22 14:12 Completed XR chest 1V portable [id number] Stat Exams 02/01/22 12:45 Completed CV echo complete* [id number] Routine Ultrasound 02/04/22 12:17 Completed Laboratory Last Values WBC 7.3 10^3/uL (4.0-10.0) 02/06/22 05:40 RBC 2.97 10^6/uL (4.1-5.3) L 02/06/22 05:40 Hgb 8.5 g/dL (11.7-16.6) L 02/06/22 05:40 Hct 29.6 % (42.0-52.0) L 02/06/22 05:40 MCV 99.7 fl (80-94) H 02/06/22 05:40 MCH 28.6 pg (28.0-34.0) 02/06/22 05:40 MCHC 28.7 g/dL (30.0-36.0) L 02/06/22 05:40 RDW 15.4 % (12.1-15.1) H 02/06/22 05:40 Plt Count 263 10^3/cmm (130-400) 02/06/22 05:40 MPV 8.4 fL (7.4-10.4) 02/06/22 05:40 Neut % (Auto) 55.8 % 02/06/22 05:40 Lymph % (Auto) 24.3 % 02/06/22 05:40 [place] % (Auto) 11.1 % 02/06/22 05:40 Eos % (Auto) 4.1 % 02/06/22 05:40 Baso % (Auto) 0.7 % 02/06/22 05:40 Neut # (Auto) 4.06 10^3/uL (1.8-7.7) 02/06/22 05:40 Lymph # (Auto) 1.8 10^3/uL (0.8-4.8) 02/06/22 05:40 [place] # (Auto) 0.8 10^3/uL (0.2-0.9) 02/06/22 05:40 Eos # (Auto) 0.3 10^3/uL (0.0-0.8) 02/06/22 05:40 Baso # (Auto) 0.1 10^3/uL (0.0-0.1) 02/06/22 05:40 Nucleated RBC % (auto) 0 % 02/06/22 05:40 Nucleated RBCs # 0.0 /100WBC 02/06/22 05:40 PT 18.70 SECONDS (12.1-14.9) H 02/02/22 00:49 INR 1.53 (0.8-1.2) H 02/02/22 00:49 APTT 35.9 SECONDS (23.9-36.7) D 02/03/22 16:59 Specimen Type Arterial 02/01/22 13:27 Sample Site Radial, right 02/01/22 13:27 ABG pH 7.41 (7.35-7.45) 02/01/22 13:27 ABG pCO2 39.8 mmHg (35-45) 02/01/22 13:27 ABG pO2 47.8 mmHg (80.0-100.0) L 02/01/22 13:27 ABG HCO3 25.3 mmol/L (22-26) 02/01/22 13:27 ABG O2 Saturation 85.5 02/01/22 13:27 ABG Base Excess 0.6 mmol/L (-2.0-2.0) 02/01/22 13:27 Fidel Test Pos 02/01/22 13:27 A-a O2 Gradient 6.9 mmHg (5-10) 02/01/22 13:27 Hematocrit 33.0 % (42-52) L 02/01/22 13:27 Hgb O2 Saturation 84.6 % (95-100) L 02/01/22 13:27 Carboxyhemoglobin 1.4 %THgb (0.4-20.1) 02/01/22 13:27 Methemoglobin < 0.0 % (0.4-1.5) L 02/01/22 13:27 Total Hemoglobin 10.8 g/dL (14-18) L 02/01/22 13:27 Sodium 140.0 mmol/L (131-143) 02/01/22 13:27 Potassium 4.4 mmol/L (3.5-5.0) 02/01/22 13:27 Glucose 180.0 mg/dL (70-115) H 02/01/22 13:27 Ionized Calcium 1.1 mmol/L (1.1-1.4) 02/01/22 13:27 O2 Delivery Device Room air 02/01/22 13:27 FiO2 21.0 % 02/01/22 13:27 Fruit Stuffer ID [place] 02/01/22 13:27 Sodium 141 mmol/L (136-145) 02/06/22 05:40 Potassium 3.6 mmol/L (3.5-5.1) 02/06/22 05:40 Chloride 102 mmol/L (98-107) 02/06/22 05:40 Carbon Dioxide 28 mmol/L (22-29) 02/06/22 05:40 Anion Gap 14.6 (5-19) 02/06/22 05:40 BUN 25 mg/dL (8-23) H 02/06/22 05:40 Creatinine 1.8 mg/dL (0.7-1.2) H 02/06/22 05:40 GFR Calculation 38.2 mL/min (90-130) L 02/06/22 05:40 Glucose 116 mg/dL (65-115) H 02/06/22 05:40 POC Glucose 166 mg/dL (70-110) H 02/06/22 11:02 Estimat Average Glucose 169 02/04/22 14:22 Hemoglobin A1c 7.5 % (4.0-6.0) H 02/04/22 14:22 Calculated Osmolality 297 mOsm/kg (285-295) H 02/06/22 05:40 Lactic Acid 1.4 mmol/L (0.5-2.2) 02/01/22 00:49 Calcium 8.8 mg/dL (8.5-10.5) 02/06/22 05:40 Magnesium 1.8 mg/dL (1.7-2.3) 02/05/22 03:50 Total Bilirubin 0.3 mg/dL (0.15-1.2) 02/05/22 03:50 AST 18 U/L (0-40) 02/05/22 03:50 ALT 16 U/L (0-41) 02/05/22 03:50 Alkaline Phosphatase 45 IU/L (40-130) 02/05/22 03:50 Troponin T Baseline 57 ng/L (0-15) H 02/01/22 13:06 Troponin T 120 Minute 113.7 ng/L (0-15) H 02/01/22 15:45 Delta Troponin T 56.7 ABS# (0-10) H* 02/01/22 15:45 Troponin T Hi Sens 6Hr 197.9 ng/L (0-15) H 02/01/22 19:31 Troponin T Hi Sens 6Hr Delta 140.9 ng/L (0-12) H* 02/01/22 19:31 C-Reactive Protein 66.3 mg/L (0.0-4.9) H 02/05/22 03:50 NT-Pro-B Natriuret Pep 865 pg/mL (0-125) H 02/01/22 13:06 Total Protein 6.1 g/dL (6.6-8.7) L 02/05/22 03:50 Albumin 3.1 g/dL (3.5-5.2) L 02/05/22 03:50 Globulin 3.0 g/dL (1.3-4.6) 02/05/22 03:50 Lipase 26 U/L (13-60) 02/01/22 13:06 Vitamin B12 425 pg/mL (232-1245) 02/04/22 05:40 Procalcitonin 0.90 ng/mL (0-0.5) H 02/04/22 05:40 Urine Color Yellow (Yellow) 02/01/22 19:34 Urine Appearance Clear (CLEAR) 02/01/22 19:34 Urine pH 5 (5-7) 02/01/22 19:34 Ur Specific [place] 1.015 (1.005-1.030) 02/01/22 19:34 Urine Protein Trace (Negative) 02/01/22 19:34 Urine Glucose (UA) Norm (Normal) 02/01/22 19:34 Urine Ketones Negative (Negative) 02/01/22 19:34 Urine Blood 3+ (Negative) H 02/01/22 19:34 Urine Nitrate Negative (Negative) 02/01/22 19:34 Urine Bilirubin Neg (Negative) 02/01/22 19:34 Urine Urobilinogen Norm mg/dL (Negative) 02/01/22 19:34 Ur Leukocyte Esterase Negative (Negative) 02/01/22 19:34 Urine RBC 5-10 /hpf (0-2) H 02/01/22 19:34 Urine WBC 0-4 /hpf (0-5) H 02/01/22 19:34 Ur Squamous Epith Cells 0-4 /hpf (0-5) H 02/01/22 19:34 Amorphous Sediment Not Reportable 02/01/22 19:34 Urine Bacteria Trace /hpf (NONE) 02/01/22 19:34 Vancomycin Trough 8.6 ug/mL (10-15) L 02/05/22 00:50 Coronavirus 229E (PCR) Not detected (NOT DETECT) 02/01/22 15:45 Influenza Type A Ag Negative (Negative) 02/01/22 13:40 Influenza Type B Ag Negative (Negative) 02/01/22 13:40 SARS-CoV-2 (PCR) Not detected (NOT DETECT) 02/01/22 15:45 SARS-CoV-2 Ag (Rapid) Negative (Negative) 02/01/22 13:06 Radiology Impressions Chest X-Ray 02/01/22 12:45 IMPRESSION: No acute findings. Chest/Abdomen/Pelvis CT 02/01/22 14:12 IMPRESSION: Exam is limited due to body habitus with beam hardening artifact and suboptimal contrast bolus. 1. Shallow inspiration. Bibasilar atelectasis. No focal pneumonia. 2. Proximal main pulmonary arteries are normal. Poor filling of the segmental and subsegmental pulmonary arteries more prominent in the RIGHT upper and lower lobe suspicious for pulmonary embolus. Evaluation is limited due to extensive beam hardening artifact. Recommend interval follow-up after treatment. 3. Again seen is the perianal abscess with sinus tract extending adjacent to the bladder. 4. Perirectal abscess portion is decreased in size today measuring 2.2 x 3.2 CM. 5. Stable [place] RIGHT ventral abdominal wall hernia with herniation of small bowel loops. No evidence of obstruction. Notified Nathen Betancourt MD at 02/01/2022 3:20 PM. Recent Clincial Data Last Vital Signs Temp 98.0 F 02/06/22 08:00 Pulse 53 L 02/06/22 08:10 Resp 18 02/06/22 08:10 BP 130/66 02/06/22 08:00 Pulse Ox 93 02/06/22 08:10 O2 Del Method 02/06/22 08:10 O2 Flow Rate 84 02/05/22 20:30 FiO2 30 02/06/22 04:28 Vital Signs Temp Pulse Resp BP Pulse Ox O2 Del Method FiO2 02/06/22 08:00 98.0 F 52 L 16 130/66 93 Room Air 02/06/22 08:10 53 L 18 93 Room Air 02/06/22 06:00 40 L 02/06/22 04:40 99.0 F 65 22 H 147/75 98 02/06/22 04:28 52 L 99 30 02/06/22 04:09 98.0 F 59 L 17 163/70 98 BiPAP 30 02/06/22 02:32 59 L 98 30 Intake & Output/Weight 02/04/22 02/05/22 02/06/22 02/07/22 06:59 06:59 06:59 06:59 Intake Total 587.117 / 587.117 750 / 750 1830 / 1830 120 / 120 Output Total 1100 / 1100 850 / 850 2750 / 2750 200 / 200 Balance -512.883 / -512.883 -100 / -100 -920 / -920 -80 / -80 Weight 246.811 kg 250.02 kg Vitals Last Vital Signs Temp 98.0 F 02/06/22 08:00 Pulse 53 L 02/06/22 08:10 Resp 18 02/06/22 08:10 BP 130/66 02/06/22 08:00 Pulse Ox 93 02/06/22 08:10 O2 Del Method 02/06/22 08:10 O2 Flow Rate 84 02/05/22 20:30 FiO2 30 02/06/22 04:28 TS Medications Medications Acetaminophen (Acetaminophen 325 Mg Tablet) 650 mg PO Q6H PRN PRN Reason: Mild/Mod Pain Or Temp >/= 101 Albuterol/Ipratropium (Ipratropium-Albuterol 3 Ml Neb) 3 ml INHALATION Q6H PRN PRN Reason: SHORTNESS OF BREATH Amoxicillin/Clavulanate Potassium (Amoxicillin-Clav 875-125 Mg Tablet) 1 tab PO BID CRUZ; Protocol Last Admin: 02/06/22 08:48 Dose: 1 tab Artificial Tears (Artificial Tears Op Oint 3.5 Gm) 1 applic EYE-RIGHT TID PRN PRN Reason: irritation Last Admin: 02/05/22 18:07 Dose: 1 applic Clindamycin HCl (Clindamycin 150 Mg Capsule) 300 mg PO Q6H CRUZ; Protocol Last Admin: 02/06/22 12:04 Dose: 300 mg Dextrose (Dextrose 50% Syringe 50 Ml) 25 ml IVP ONCE PRN; Protocol PRN Reason: hypoglycemia protocol Dextrose (Dextrose 50% Syringe 50 Ml) 50 ml IVP PRN PRN; Protocol PRN Reason: hypoglycemia protocol Dextrose (Dextrose 50% Syringe 50 Ml) 25 ml IVP ONCE PRN; Protocol PRN Reason: hypoglycemia protocol Dextrose (Dextrose 50% Syringe 50 Ml) 50 ml IVP PRN PRN; Protocol PRN Reason: hypoglycemia protocol Furosemide (Furosemide 20 Mg Tablet) 40 mg PO DAILY [facility] Last Admin: 02/06/22 08:48 Dose: 40 mg Gabapentin (Gabapentin 300 Mg Capsule) 900 mg PO ONCE ONE Stop: 02/06/22 12:16 Glucagon (Glucagon 1 Mg/Ml Inj 1 Ml) 1 mg IM ONCE PRN; Protocol PRN Reason: Adult Acute Hypoglycemia Prot. Glucagon (Glucagon 1 Mg/Ml Inj 1 Ml) 1 mg IM ONCE PRN; Protocol PRN Reason: Adult Acute Hypoglycemia Prot. Dextrose (D5w) 500 mls @ 100 mls/hr IV ONCE PRN; Protocol PRN Reason: Adult Acute Hypoglycemia Prot Dextrose (D5w) 500 mls @ 100 mls/hr IV ONCE PRN; Protocol PRN Reason: Adult Acute Hypoglycemia Prot Insulin Glargine (Insulin Glargine 100 Units/1 Ml) 50 unit SUBCUT BID@0900,2100 [facility] Last Admin: 02/06/22 08:49 Dose: 50 unit Insulin Human Lispro (Insulin Lispro 100 Unit/1 Ml) 0 unit SUBCUT TIDWM [facility]; Protocol Last Admin: 02/06/22 12:04 Dose: 4 unit Lanolin (Lanolin Oint 7 Gm) 1 applic TOPICAL PRN PRN PRN Reason: DRYNESS Last Admin: 02/05/22 08:24 Dose: 1 applic Morphine Sulfate (Morphine Ir 15 Mg Tablet) 15 mg PO Q6H PRN PRN Reason: pAIN Last Admin: 02/05/22 18:02 Dose: 15 mg Ondansetron HCl (Ondansetron 2 Mg/Ml Sdv 2 Ml) 4 mg IVP Q6H PRN PRN Reason: NAUSEA AND VOMITING Senna/Docusate Sodium (Sennosides-Docusate Tablet) 1 tab PO DAILY [facility] Last Admin: 02/06/22 08:48 Dose: 1 tab Discontinued Medications Acetaminophen (Acetaminophen 500 Mg Tablet) 1,000 mg PO ONCE ONE Stop: 02/01/22 13:00 Last Admin: 02/01/22 13:20 Dose: 1,000 mg Acetaminophen (Acetaminophen 500 Mg Tablet) 500 mg PO Q4H PRN PRN Reason: fever Albuterol/Ipratropium (Ipratropium-Albuterol 3 Ml Neb) 3 ml INHALATION Q6H PRN PRN Reason: SHORTNESS OF BREATH Amiodarone HCl (Amiodarone 200 Mg Tablet) 200 mg PO BID [facility] Last Admin: 02/03/22 19:11 Dose: Not Given Artificial Tears (Artificial Tears Op Oint 3.5 Gm) 1 applic EYE-BOTH ONCE ONE Stop: 02/04/22 12:17 Last Admin: 02/04/22 13:49 Dose: Not Given Enoxaparin Sodium (Enoxaparin 150 Mg/Ml Syringe) 150 mg SUBCUT ONCE ONE Stop: 02/01/22 15:31 Last Admin: 02/01/22 22:15 Dose: Not Given Enoxaparin Sodium (Enoxaparin 150 Mg/Ml Syringe) 150 mg SUBCUT ONCE ONE Stop: 02/01/22 19:17 Last Admin: 02/01/22 20:14 Dose: 150 mg Furosemide (Furosemide 20 Mg Tablet) 20 mg PO DAILY [facility] Last Admin: 02/04/22 09:03 Dose: 20 mg Gabapentin (Gabapentin 300 Mg Capsule) 600 mg PO ONCE ONE Stop: 02/06/22 02:16 Last Admin: 02/06/22 05:51 Dose: Not Given Heparin Sodium (Porcine) (Heparin 5,000 Unit/Ml Inj 1 Ml) 0 unit IV PRN PRN; Protocol PRN Reason: Heparin weight-base protocol Last Admin: 02/03/22 08:28 Dose: 5,000 unit Heparin Sodium (Porcine) (Heparin 5,000 Unit/Ml Inj 1 Ml) 5,000 unit SUBCUT Q12H [facility] Last Admin: 02/05/22 11:58 Dose: 5,000 unit Hydromorphone HCl (Hydromorphone 1 Mg/Ml Inj 1 Ml) 0.5 mg IVP ONCE ONE Stop: 02/01/22 22:14 Last Admin: 02/01/22 22:22 Dose: 0.5 mg Hydromorphone HCl (Hydromorphone 1 Mg/Ml Inj 1 Ml) 0.5 mg IVP ONCE ONE Stop: 02/02/22 02:44 Last Admin: 02/02/22 03:28 Dose: 0.5 mg Hydromorphone HCl (Hydromorphone 1 Mg/Ml Inj 1 Ml) 0.5 mg IVP Q4H PRN PRN Reason: MODERATE TO SEVERE PAIN Last Admin: 02/04/22 00:46 Dose: 0.5 mg Sodium Chloride (Sodium Chloride 0.9%) 1,000 mls @ 999 mls/hr IV .Q1H1M ONE Stop: 02/01/22 13:59 Last Infusion: 02/02/22 01:44 Dose: Infused Vancomycin HCl 1,000 mg/ (Sodium Chloride) 250 mls @ 250 mls/hr IV ONCE ONE; Protocol Stop: 02/01/22 16:48 Last Infusion: 02/02/22 01:44 Dose: Infused Piperacillin Sod/Tazobactam (Sod 4.5 gm/ Sodium Chloride) 50 mls @ 100 mls/hr IV IP NETWORK ARCHITECT ONE; Protocol Stop: 02/01/22 16:18 Last Infusion: 02/02/22 01:43 Dose: Infused Sodium Chloride (Sodium Chloride 0.9%) 1,000 mls @ 100 mls/hr IV .Q10H CRUZ Last Admin: 02/04/22 19:26 Dose: Not Given Piperacillin Sod/Tazobactam (Sod 3.375 gm/ Sodium Chloride) 50 mls @ 12.5 mls/hr IV Q8H [facility]; Protocol Last Infusion: 02/04/22 10:03 Dose: Infused Heparin Sodium/Sodium Chloride (Heparin Drip) 25,000 unit in 500 mls @ 0 mls/hr IV .Q0M CRUZ; Protocol Last Titration: 02/04/22 17:37 Dose: Infused Vancomycin/PEG/NADA/Lysine/Water (Vancocin) 1,250 mg in 250 mls @ 250 mls/hr IV Q8H [facility] Last Admin: 02/03/22 01:06 Dose: Not Given Vancomycin HCl 1,000 mg/ (Sodium Chloride) 250 mls @ 250 mls/hr IV Q8H CRUZ Linezolid (Zyvox Premix) 600 mg in 300 mls @ 300 mls/hr IV Q12H [facility]; Protocol Last Infusion: 02/05/22 13:05 Dose: Infused Piperacillin Sod/Tazobactam (Sod 3.375 gm/ Sodium Chloride) 50 mls @ 12.5 mls/hr IV Q8H CRUZ Piperacillin Sod/Tazobactam (Sod 3.375 gm/ Sodium Chloride) 50 mls @ 12.5 mls/hr IV Q8H [facility] Last Infusion: 02/05/22 12:28 Dose: Infused Insulin Glargine (Insulin Glargine 100 Units/1 Ml) 10 unit SUBCUT ONCE ONE Stop: 02/02/22 14:31 Last Admin: 02/02/22 15:34 Dose: 10 unit Insulin Human Lispro (Insulin Lispro 100 Unit/1 Ml) 0 unit SUBCUT WM&BEDTIME [facility]; Protocol Last Admin: 02/04/22 19:27 Dose: Not Given Iohexol (Iohexol 350 Mg/Ml 100 Ml Btl) 95 ml .ROUTE .STK-MED ONE Stop: 02/01/22 12:44 Morphine Sulfate (Morphine 4 Mg/Ml Sdv 1 Ml) 4 mg IVP ONCE ONE Stop: 02/01/22 17:55 Last Admin: 02/01/22 18:02 Dose: 4 mg Morphine Sulfate (Morphine 4 Mg/Ml Sdv 1 Ml) 4 mg IVP ONCE ONE Stop: 02/02/22 01:11 Last Admin: 02/02/22 01:18 Dose: 4 mg Ondansetron HCl (Ondansetron 2 Mg/Ml Sdv 2 Ml) 4 mg IVP Q8H PRN PRN Reason: vomiting, or N/V if npo Last Admin: 02/04/22 07:44 Dose: 4 mg Pantoprazole Sodium (Pantoprazole 40 Mg Sdv) 40 mg IVP Q12H CRUZ Last Admin: 02/04/22 12:21 Dose: 40 mg Allergies aspirin Allergy (Verified 02/01/22 14:19) Unknown Vicodin Allergy (Unknown, Uncoded 02/01/22 14:19) Unknown Victoza Adverse Reaction (Mild, Uncoded 02/01/22 14:19) Unknown Home Medications apixaban 5 mg tablet (Eliquis) 5 mg PO BID@0600,1700 07/15/20 [History Confirmed 02/01/22] gabapentin 300 mg capsule 900 mg PO BEDTIME@2100 07/15/20 [History Confirmed 02/01/22] insulin glargine 100 unit/mL (3 mL) subcutaneous pen (Lantus Solostar U-100 Insu caitlin) 70 unit SUBCUT BID@0600,1700 07/15/20 [History Confirmed 02/01/22] levothyroxine 25 mcg tablet 25 mcg PO DAILY@0600 07/15/20 [History Confirmed 02/01/22] ferrous sulfate 325 mg (65 mg iron) tablet (iron) 325 mg PO DAILY 12/09/20 [History Confirmed 02/01/22] amiodarone 200 mg tablet 200 mg PO BID 12/24/21 [History Confirmed 02/01/22] Discharge Plan Discharge Patient Disposition: Xfer Other Condition: Stable Prescriptions: No Action levothyroxine 25 mcg tablet 25 mcg PO DAILY@0600 gabapentin 300 mg capsule 900 mg PO BEDTIME@2100 insulin glargine [Lantus Solostar U-100 Insulin] 100 unit/mL (3 mL) insulin pen 70 unit SUBCUT BID@0600,1700 Hold Instructions: Resume on 11/10/20. after PCP follow up Eliquis 5 mg tablet 5 mg PO BID@0600,1700 ferrous sulfate [iron] 325 mg (65 mg iron) Tablet 325 mg PO DAILY amiodarone 200 mg Tablet 200 mg PO BID Transfer Attestations Time Spent in Transfer Care: less than 30 min Status at Transfer: Cognitive status at transfer: cognitively intact ; Behavioral status at transfer: cooperative ; Quality Metrics Clinical Quality Measures [ No reported AMI, CVA or VTE this stay] Coding Level of Care Code Acute Captain'S Assistant for Chg Fwd Diagnoses Iron deficiency anemia D50.9 Acute kidney injury superimposed on chronic kidney disease N17.9; N18.9 Sleep apnea G47.30 Diabetes E11.9 Perirectal abscess K61.1 Sepsis A41.9 Pulmonary embolism I26.99 MIRTA (acute kidney injury) N17.9 Non-ST elevation ID (NSTEMI) I21.4 Abscess, perirectal K61.1 Venous ulcer of leg I83.029; L97.929 Laterality: left
[2022-02-06] MEDS: gabapentin 300 mg Capsule 900 MG PO (12:16)
== END 2022-02-06 12:49 | disposition short-term general hospital (02) | DRG 871 ==
LOC: ER 02-04 13:22 → MEDSURG 02-04 14:55
PROVIDERS: Family Medicine; Internal Medicine; Admitting Provider Internal Medicine; Emergency Provider Emergency Medicine; Visit Provider Internal Medicine
DX: A41.9 Sepsis, unspecified organism (principal); I21.A1 Myocardial infarction type 2; I26.94 Multiple subsegmental thrombotic pulmonary emboli without acute cor pulmonale; K61.1 Rectal abscess; I13.0 Hypertensive heart and chronic kidney disease with heart failure and stage 1 through stage 4 chronic kidney disease, or unspecified chronic kidney disease; Z68.45 Body mass index [BMI] 70 or greater, adult; N17.9 Acute kidney failure, unspecified; L97.929 Non-pressure chronic ulcer of unspecified part of left lower leg with unspecified severity; I42.8 Other cardiomyopathies; I48.91 Unspecified atrial fibrillation; I50.9 Heart failure, unspecified; N18.9 Chronic kidney disease, unspecified; E11.22 Type 2 diabetes mellitus with diabetic chronic kidney disease; E66.01 Morbid (severe) obesity due to excess calories; G47.33 Obstructive sleep apnea (adult) (pediatric); E11.51 Type 2 diabetes mellitus with diabetic peripheral angiopathy without gangrene; Z99.89 Dependence on other enabling machines and devices; Z90.49 Acquired absence of other specified parts of digestive tract; I86.8 Varicose veins of other specified sites; E11.622 Type 2 diabetes mellitus with other skin ulcer; E03.9 Hypothyroidism, unspecified; D50.9 Iron deficiency anemia, unspecified; D63.1 Anemia in chronic kidney disease; Z79.01 Long term (current) use of anticoagulants; Z79.4 Long term (current) use of insulin; H11.31 Conjunctival hemorrhage, right eye; X58.XXXA Exposure to other specified factors, initial encounter; Y92.230 Patient room in hospital as the place of occurrence of the external cause
CPT/HCPCS: 36415; 36416; 36600; 71045; 71275; 74177; 80048; 80051; 80053; 80202; 81001; 82330; 82607; 82805; 82962; 83036; 83605; 83690; 83735; 83880; 84145; 84484; 85025; 85610; 85730; 86140; 87040; 87426; 87635; 87804; 93005; 93306; 94660; 94664; 94760; 94762; 96365; 96366; 96367; 96372; 96375; 97161; 97530; 99285; C9113; J1170; J1644; J1650; J1815; J2020; J2270; J2405; J2543; J3370; J7030; J7050; Q9967

== ENCOUNTER → 2022-03-02 08:06 | Outpatient (BNVA) | payer MEDICARE, MEDICAID, SELFPAY | PROVIDERS: Visit Provider Nurse Practitioner Family | DX: I96 Gangrene, not elsewhere classified (principal); L89.892 Pressure ulcer of other site, stage 2; L89.623 Pressure ulcer of left heel, stage 3; I87.2 Venous insufficiency (chronic) (peripheral); E11.622 Type 2 diabetes mellitus with other skin ulcer; L97.821 Non-pressure chronic ulcer of other part of left lower leg limited to breakdown of skin; L97.423 Non-pressure chronic ulcer of left heel and midfoot with necrosis of muscle | CPT/HCPCS: 97597; 97598 ==

== ENCOUNTER → 2022-03-09 09:04 | Outpatient (BNVA) | payer MEDICARE, MEDICAID, SELFPAY | PROVIDERS: Visit Provider Thoracic Surgery (Cardiothoracic Vascular Surgery) | DX: I96 Gangrene, not elsewhere classified (principal); L89.892 Pressure ulcer of other site, stage 2; L89.323 Pressure ulcer of left buttock, stage 3; E11.621 Type 2 diabetes mellitus with foot ulcer; E11.622 Type 2 diabetes mellitus with other skin ulcer | CPT/HCPCS: 11042; 11045; 97597; 97598; A6251; A6252; A6253 ==

== ENCOUNTER → 2022-03-16 09:17 | Outpatient (BNVA) | payer MEDICARE, MEDICAID, SELFPAY | PROVIDERS: Visit Provider Nurse Practitioner Family | DX: L89.892 Pressure ulcer of other site, stage 2 (principal); L89.623 Pressure ulcer of left heel, stage 3; L97.423 Non-pressure chronic ulcer of left heel and midfoot with necrosis of muscle; L97.422 Non-pressure chronic ulcer of left heel and midfoot with fat layer exposed; E11.621 Type 2 diabetes mellitus with foot ulcer; E11.622 Type 2 diabetes mellitus with other skin ulcer; L97.822 Non-pressure chronic ulcer of other part of left lower leg with fat layer exposed; I96 Gangrene, not elsewhere classified | CPT/HCPCS: 11042; A6252; A6253 ==

== ENCOUNTER → 2022-03-23 09:21 | Outpatient (BNVA) | payer MEDICARE, MEDICAID, SELFPAY | PROVIDERS: Visit Provider Thoracic Surgery (Cardiothoracic Vascular Surgery) | DX: I96 Gangrene, not elsewhere classified (principal); L89.892 Pressure ulcer of other site, stage 2; L89.623 Pressure ulcer of left heel, stage 3; E11.621 Type 2 diabetes mellitus with foot ulcer; L97.822 Non-pressure chronic ulcer of other part of left lower leg with fat layer exposed | CPT/HCPCS: 97597; 97598; A6252; A6253 ==

== ENCOUNTER → 2022-03-30 09:07 | Outpatient (BNVA) | payer MEDICARE, MEDICAID, SELFPAY | PROVIDERS: Visit Provider Thoracic Surgery (Cardiothoracic Vascular Surgery) | DX: I96 Gangrene, not elsewhere classified (principal); L89.892 Pressure ulcer of other site, stage 2; L89.623 Pressure ulcer of left heel, stage 3; E11.621 Type 2 diabetes mellitus with foot ulcer; L97.822 Non-pressure chronic ulcer of other part of left lower leg with fat layer exposed | CPT/HCPCS: 97597; 97598; A6252; A6253 ==

== ENCOUNTER → 2022-04-06 09:28 | Outpatient (BNVA) | payer MEDICARE, MEDICAID, SELFPAY | PROVIDERS: Visit Provider Thoracic Surgery (Cardiothoracic Vascular Surgery) | DX: L89.892 Pressure ulcer of other site, stage 2 (principal); L89.623 Pressure ulcer of left heel, stage 3; E11.622 Type 2 diabetes mellitus with other skin ulcer; L97.822 Non-pressure chronic ulcer of other part of left lower leg with fat layer exposed; I96 Gangrene, not elsewhere classified | CPT/HCPCS: 11042; 11045; 97597; 97598 ==

== ENCOUNTER → 2022-04-13 08:23 | Outpatient (BNVA) | payer MEDICARE, MEDICAID, SELFPAY | PROVIDERS: Visit Provider Thoracic Surgery (Cardiothoracic Vascular Surgery) | DX: I96 Gangrene, not elsewhere classified (principal); L89.892 Pressure ulcer of other site, stage 2; E11.621 Type 2 diabetes mellitus with foot ulcer; L97.522 Non-pressure chronic ulcer of other part of left foot with fat layer exposed; L97.422 Non-pressure chronic ulcer of left heel and midfoot with fat layer exposed; E11.622 Type 2 diabetes mellitus with other skin ulcer; L97.822 Non-pressure chronic ulcer of other part of left lower leg with fat layer exposed | CPT/HCPCS: 11042; 11045; 97597; 97598; A6253 ==

== ENCOUNTER → 2022-04-27 09:21 | Outpatient (BNVA) | payer MEDICARE, MEDICAID, SELFPAY | PROVIDERS: Visit Provider Thoracic Surgery (Cardiothoracic Vascular Surgery) | DX: I96 Gangrene, not elsewhere classified (principal); E11.622 Type 2 diabetes mellitus with other skin ulcer; L89.893 Pressure ulcer of other site, stage 3; L89.892 Pressure ulcer of other site, stage 2; Z79.4 Long term (current) use of insulin | CPT/HCPCS: 11042; 11045; 97597; 97598 ==

== ENCOUNTER 2022-05-05 08:52 | Emergency (ER) | payer MEDICARE, MEDICAID, SELFPAY ==
[2022-05-05 08:57] VITALS: BP 139/48; PULSE 51; RESP 24; TEMP 37.1; O2SAT 94; BMI 70.6
--- NOTE | 2022-05-05 09:34 | PC.PHAR ---
PT STATES HE TAKES CARE OF HIS OWN MEDICATIONS-PT STATES HE HAS A INHALER BUT DOESNT USE IT-PT STATES HE USES 60 UNITS BID OF [facility] EXT MED HISTORY SHOWS LAST FILLED 04/26/22 70 UNITS BID-
[2022-05-05 09:39] LABS: Basophils # 0.1 10^3/uL (0.0-0.1); Basophils % 0.8 %; Eosinophils # 0.1 10^3/uL (0.0-0.8); Eosinophils % 1.6 %; Hematocrit 34.1 % (42.0-52.0); Hemoglobin 10.1 g/dL (11.7-16.6); Lymphocytes # 1.2 10^3/uL (0.8-4.8); Lymphocytes % 16.7 %; Mean Corpuscular HGB Conc 29.6 g/dL (30.0-36.0); Mean Corpuscular Hemoglobin 27.8 pg (28.0-34.0); Mean Corpuscular Volume 93.9 fl (80-94); Mean Platelet Volume 8.6 fL (7.4-10.4); Monocytes # 0.9 10^3/uL (0.2-0.9); Monocytes % 12.3 %; Neutrophils # 5.05 10^3/uL (1.8-7.7); Neutrophils % 68.1 %; Nucleated Red Blood Cells % 0 %; Platelet Count 294 10^3/cmm (130-400); Red Blood Count 3.63 10^6/uL (4.1-5.3); Red Cell Distribution Width 15.8 % (12.1-15.1); White Blood Count 7.4 10^3/uL (4.0-10.0)
--- NOTE | 2022-05-05 09:40 | CT_ITS ---
WS: [id number] CT ABDOMEN PELVIS TECHNIQUE: Noncontrast CT of the abdomen and pelvis with coronal and sagittal reformatted images. CLINICAL INFORMATION: Abdominal pain COMPARISON: CT abdomen pelvis 12/24/2021 and 02/01/2022 DLP: 2004.[address] scans at [facility] use at least one of these dose optimization techniques: automated e xposure control; mA and/or kV adjustment per patient size (includes targeted exams where dose is matc hed to clinical indication); or iterative reconstruction. FINDINGS: Mild urinary distention of the bladder. Mild diffuse bladder wall thickening eccentric to t he LEFT. Again seen is the small fluid collection in the LEFT pelvis adjacent to the urinary bladder consistent with perianal abscess with sinus tract. Fluid collection in the perianal region measures slightly larger today 3.3 x 5.3 cm compared to 2.2 x 3.2 CM previous. Associated air within the abscess cavity. Again seen is the sinus tract extending t o the LEFT side of the bladder unchanged. Mild adjacent bladder wall thickening eccentric to the LEFT . Slight bibasilar atelectasis. Noncontrast liver is normal. Mild hepatomegaly. Noncontrast spleen is n ormal. Normal GE junction. Adrenal glands are normal. Bilateral renal cortical atrophy. Fatty atrophy of the pancreas. No hydronephrosis in either kidney.Wide mouth RIGHT lower abdominal hernia with her niation of small bowel loops. No obstruction. CT/CT abdomen pelvis wo con [id number] IMPRESSION: 1. Fluid collection in the perianal region measures larger today 3.3 x 5.3 cm compared to 2.2 x 3.2 CM previous tear. Associated air fluid within the abscess cavity. 2. Again seen is the sinus tract extending to the LEFT side of the bladder unc hanged. Mild adjacent bladder wall thickening eccentric to the LEFT. 3. Wide mouth RIGHT lower abdominal hernia with herniation of small bowel loop s. No obstruction. 4. No other changes compared to previous
[2022-05-05 10:01] LABS: Anion Gap 15.8 (5-19); Blood Urea Nitrogen 15 mg/dL (8-23); Calcium 9.2 mg/dL (8.5-10.5); Carbon Dioxide 26 mmol/L (22-29); Chloride 99 mmol/L (98-107); Glomerular Filtration Rate 40.8 mL/min (90-130); Glucose 87 mg/dL (65-115); Osmolality Calculated 284 mOsm/kg (285-295); Potassium 3.8 mmol/L (3.5-5.1); Sodium 137 mmol/L (136-145)
[2022-05-05] MEDS: ondansetron 2 mg/ML SDV 2 mL 4 MG IVP (10:10)
[2022-05-05 10:11] VITALS: RESP 18
[2022-05-05] MEDS: morphine 4 mg/mL SDV 1 mL IVP ×2 (10:11→13:20)
[2022-05-05 10:20] VITALS: BP 139/48; PULSE 50; O2SAT 98
[2022-05-05] MEDS: vancomycin 1,000 MG in sodium chloride 0.9% 250 ML 250 MG IV (12:51)
--- NOTE | 2022-05-05 13:07 | ED_ITS ---
HPI - General Adult General: Chief complaint: General Medical Stated complaint: abcess on buttocks Time Seen by Provider: 05/05/22 09:22 Source: patient Mode of arrival: ambulatory History of Present Illness: 66-year-old male presents to the emergency room with abscess on the buttock. He previously had this evaluated was actually quite large she had it incised and drained and repacking for period of time. He returned and was septic was admitted to [facility] and then later transferred to [place]. There it was observed he was treated medically and seem to have resolved and he was discharged home and is now recurring again is exquisitely painful. He has not had any fever sweats or chills vital signs are stable on presentation Onset (ago): day(s) Location: buttocks Severity: moderate Quality: sharp Pain Consistency: constant Relieving factors: none Exacerbating factors: none Associated symptoms: Deny chest pain, confusion, cough, diaphoresis, decreased appetite, dyspnea, fevers/chills, headache(s), malaise, nausea, rash, palpitations, seizures, short of breath, syncope, vomiting or weakness Treatments prior to arrival: none Review of Systems Const: Denies: fever(s), chills, fatigue, malaise or diaphoresis ENMT: Denies: throat pain, ear or mastoid pain, nasal discharge or nasal congestion Card: Denies: chest pain, palpitations or syncope Resp: Denies: dyspnea GI: Reports: rectal pain; Denies: abdominal pain, nausea or vomiting : Denies: flank pain, difficulty urinating, dysuria, urinary frequency or urinary urgency Skin/Breast: Denies: rash Neuro: Denies: headache(s) or confusion PFS ED PFSH: Medical History Abscess, perirectal Acute kidney injury superimposed on chronic kidney disease MIRTA (acute kidney injury) Atrial fibrillation Atrial fibrillation Chest pain CHF (congestive heart failure) Chill Diabetes Fall Fever Generalized weakness Heart failure History of end stage renal disease History of osteomyelitis HTN (hypertension) Hx of chronic arthritis Hx of hyperlipidemia Hx of low back pain Hx of obesity Hx of sleep apnea Hx of type 2 diabetes mellitus Hypertension Iron deficiency anemia Morbid obesity Non-pressure chronic ulcer of other part of left foot with necrosis of bone Non-ST elevation ME (NSTEMI) Perirectal abscess Pulmonary embolism PVD (peripheral vascular disease) Sepsis Sleep apnea Surgical History History of hemicolectomy History of surgery on arm Social History Alcohol intake: never Physical Exam Const: COMMON NORMALS: no acute distress GENERAL APPEARANCE: cooperative and comfortable ORIENTATION/CONSCIOUSNESS: Yes awake, Yes oriented to person, Yes oriented to place and Yes oriented to time HENMT: COMMON NORMALS: normocephalic, atraumatic and hearing grossly normal bilaterally HEAD & SCALP: normocephalic and atraumatic Resp: COMMON NORMALS: normal respiratory effort, No retractions, No use of accessory muscles and clear to auscultation bilaterally AUSCULTATION: clear to auscultation bilaterally Cardio: COMMON NORMALS: regular rate, regular rhythm and No murmurs present (Cardio) RATE: regular rate RHYTHM: regular rhythm GI: COMMON NORMALS: Soft to palpation and No hepatosplenomegaly present AUSCULTATION: Yes normoactive bowel sounds PALPATION: Yes Soft to palpation, No Tenderness to palpation present (GI), No Guarding due to palpation present (GI) and Yes No hepatosplenomegaly present OTHER: Perirectal abscess with no pointing tender to touch. Extremity: COMMON NORMALS: normal to inspection, capillary refill normal, no clubbing, cyanosis or edema, no calf tenderness and no pedal edema Neuro: SENSORIUM/ORIENTATION: Yes oriented to person, Yes oriented to place and Yes oriented to time Skin: COMMON NORMALS: no rashes or lesions noted GENERAL SKIN EXAM: no rashes or lesions noted Course Vital Signs: Vital signs: Vital Signs Temperature 98.7 F 05/05/22 08:57 Pulse Rate 50 L 05/05/22 10:20 Respiratory Rate 18 05/05/22 13:20 Blood Pressure 139/48 05/05/22 10:20 Pulse Oximetry 98 05/05/22 10:20 Oxygen Delivery Me thod 05/05/22 08:57 MDM - General Adult Medical Decision Making CT shows perirectal abscess. Patient has had this for some time its grown back in size again. It was initially incised and drained packed he was lost to follow-up and return to the ER was admitted with sepsis then transferred to [place] they did not do any surgical procedures he was treated medically and was discharged home it is recurring now it is back to the original size on the CT. He is not septic at the moment discussed with Dr. Silver. He has been taking his Eliquis regularly will need to be off for 2 days prior to surgery we will start him on antibiotics have him hold his Eliquis on the fifth and the sixth and plan on the morning of 05/09 to have the patient go to surgery with Dr. Silver. Discussed with the patient he expressed understanding all questions answered he is to contact Dr. Silver's office as soon as he leaves the ER to make arrangements for the incision and drainage next week. Medical Records I reviewed the patient's medical records. Lab Data I reviewed the patient's lab results. : 05/05/22 09:00 05/05/22 09:00 Radiology Impressions Abdomen/Pelvis CT 05/05/22 09:40 IMPRESSION: 1. Fluid collection in the perianal region measures larger today 3.3 x 5.3 cm compared to 2.2 x 3.2 CM previous tear. Associated air fluid within the abscess cavity. 2. Again seen is the sinus tract extending to the LEFT side of the bladder unchanged. Mild adjacent bladder wall thickening eccentric to the LEFT. 3. Wide mouth RIGHT lower abdominal hernia with herniation of small bowel loops. No obstruction. 4. No other changes compared to previous Laboratory Results WBC 7.4 10^3/uL (4.0-10.0) 05/05/22 09:00 RBC 3.63 10^6/uL (4.1-5.3) L 05/05/22 09:00 Hgb 10.1 g/dL (11.7-16.6) L 05/05/22 09:00 Hct 34.1 % (42.0-52.0) L 05/05/22 09:00 MCV 93.9 fl (80-94) 05/05/22 09:00 MCH 27.8 pg (28.0-34.0) L 05/05/22 09:00 MCHC 29.6 g/dL (30.0-36.0) L 05/05/22 09:00 RDW 15.8 % (12.1-15.1) H 05/05/22 09:00 Plt Count 294 10^3/cmm (130-400) 05/05/22 09:00 MPV 8.6 fL (7.4-10.4) 05/05/22 09:00 Neut % (Auto) 68.1 % 05/05/22 09:00 Lymph % (Auto) 16.7 % 05/05/22 09:00 [place] % (Auto) 12.3 % 05/05/22 09:00 Eos % (Auto) 1.6 % 05/05/22 09:00 Baso % (Auto) 0.8 % 05/05/22 09:00 Neut # (Auto) 5.05 10^3/uL (1.8-7.7) 05/05/22 09:00 Lymph # (Auto) 1.2 10^3/uL (0.8-4.8) 05/05/22 09:00 [place] # (Auto) 0.9 10^3/uL (0.2-0.9) 05/05/22 09:00 Eos # (Auto) 0.1 10^3/uL (0.0-0.8) 05/05/22 09:00 Baso # (Auto) 0.1 10^3/uL (0.0-0.1) 05/05/22 09:00 Nucleated RBC % (auto) 0 % 05/05/22 09:00 Nucleated RBCs # 0.0 /100WBC 05/05/22 09:00 Sodium 137 mmol/L (136-145) 05/05/22 09:00 Potassium 3.8 mmol/L (3.5-5.1) 05/05/22 09:00 Chloride 99 mmol/L (98-107) 05/05/22 09:00 Carbon Dioxide 26 mmol/L (22-29) 05/05/22 09:00 Anion Gap 15.8 (5-19) 05/05/22 09:00 BUN 15 mg/dL (8-23) 05/05/22 09:00 Creatinine 1.7 mg/dL (0.7-1.2) H 05/05/22 09:00 GFR Calculation 40.8 mL/min (90-130) L 05/05/22 09:00 Glucose 87 mg/dL (65-115) 05/05/22 09:00 Calculated Osmolality 284 mOsm/kg (285-295) L 05/05/22 09:00 Calcium 9.2 mg/dL (8.5-10.5) 05/05/22 09:00 Discharge Plan Discharge Patient Disposition: Home Clinical Impression: Abscess, gluteal Condition: Stable Prescriptions: New hydrocodone-acetaminophen 5-325 mg tablet 1 tab PO Q6H PRN (Reason: pain) Qty: 25 0RF Hold Instructions: Resume on 05/12/22. promethazine 25 mg tablet 25 mg PO Q6H PRN (Reason: nausea and vomiting) Qty: 20 0RF No Action gabapentin 300 mg capsule 900 mg PO BEDTIME@2100 insulin glargine [Lantus Solostar U-100 Insulin] 100 unit/mL (3 mL) insulin pen 60 unit SUBCUT BID Hold Instructions: Resume on 11/10/20. after PCP follow up Eliquis 5 mg tablet 5 mg PO BID@0600,1700 Hold Instructions: Resume on 05/12/22. ferrous sulfate [iron] 325 mg (65 mg iron) Tablet 325 mg PO QAM amiodarone 200 mg Tablet 200 mg PO QAM torsemide 20 mg tablet 20 mg PO DAILY PRN (Reason: Edema) doxycycline monohydrate 100 mg Capsule 100 mg PO BID Rx Instructions: RX BOTTLE DATED 02/25/22 levothyroxine [Euthyrox] 50 mcg tablet 50 mcg PO QAM metoprolol tartrate 25 mg tablet 25 mg PO DAILY hydrocodone-acetaminophen 7.5-325 mg tablet 1 tab PO Q6H PRN (Reason: pain) Qty: 10 0RF Discharge Orders: Discharge ED (Routine); Ordered 05/05/22 Ordered By: Juan Diego Agee Discharge Diet: Usual diet Discharge Activity: Resume usual activity Patient Instructions: Opioid Safety, Pain Management Activity Restrictions/Additional Instructions: Hold Eliquis on Monday and Monday you should not eat or drink anything after midnight on Monday night. Dr. Silver's office will call with arrangements to schedule surgery to drain the abscess. If you develop a fever return to the emergency room. Coding Level of Care Code ED Calendering Supervisor for Deisi Vogt
[2022-05-05 13:20] VITALS: RESP 18
[2022-05-05] MEDS: HYDROcodone-acetaminophen 5-325 mg Tablet 1 TAB PO (19:18)
== END 2022-05-05 19:35 | disposition home or self-care (01) ==
PROVIDERS: Emergency Provider Family Medicine
DX: L02.31 Cutaneous abscess of buttock (principal); Z79.4 Long term (current) use of insulin; Z79.01 Long term (current) use of anticoagulants; E11.22 Type 2 diabetes mellitus with diabetic chronic kidney disease; I13.2 Hypertensive heart and chronic kidney disease with heart failure and with stage 5 chronic kidney disease, or end stage renal disease; I50.9 Heart failure, unspecified; N18.6 End stage renal disease; E78.5 Hyperlipidemia, unspecified; I25.2 Old myocardial infarction
CPT/HCPCS: 36415; 74176; 80048; 85025; 87040; 96365; 96375; 96376; 99285; J2270; J2405; J3370; J7050

== ENCOUNTER 2022-05-09 06:30 | Day surgery (SDC) | payer MEDICARE, MEDICAID, SELFPAY ==
[2022-05-06 12:39] VITALS: BMI 69.9
[2022-05-09] VITALS (12 sets, daily range): BP systolic 137–184; BP diastolic 63–90; PULSE 53–57; RESP 10–22; TEMP 36.1–37.2; O2SAT 93–100
--- NOTE | 2022-05-09 07:15 | P.HP_ITS ---
Providers/Chief Complaint Primary Care Provider: Benjamin Cardenas Chief Complaint: Cutaneous Abscess of Buttock History of Present Illness Kenney Olea is a 66 year old male who presents for incision and drainage of a right buttock abscess that has been an ongoing problem for the last 2 years. He underwent incision and drainage in [place] previously but his symptoms have recurred. He had a sigmoidectomy for diverticulitis in the past and now has an incisional hernia from that. He has right gluteal pain that is constant. Palpation makes it worse. Nothing makes it better. Pain does not radiate. Review of Systems General: Reports: 10 or more systems reviewed and unremarkable except in HPI and below Medications/Allergies Home Medications Medication Instructions Recorded Confirmed Last Taken Type apixaban 5 mg tablet (Eliquis) 5 mg PO BID@0600,1700 07/15/20 05/09/22 05/07/22 History 0600 gabapentin 300 mg capsule 900 mg PO BEDTIME@2100 07/15/20 05/06/22 05/08/22 History insulin glargine 100 unit/mL (3 60 unit SUBCUT BID 07/15/20 05/06/22 05/08/22 History mL) subcutaneous pen (Lantus Solostar U-100 Insulin) ferrous sulfate 325 mg (65 mg 325 mg PO QAM 12/09/20 05/06/22 05/08/22 History iron) tablet (iron) amiodarone 200 mg tablet 200 mg PO QAM 12/24/21 05/06/22 05/08/22 History doxycycline hyclate 100 mg tablet 100 mg PO BID 10 days #20 tabs 05/05/22 05/06/22 05/08/22 Rx doxycycline monohydrate 100 mg 100 mg PO BID 05/05/22 05/06/22 05/08/22 History capsule hydrocodone 5 mg-acetaminophen 325 1 tab PO Q6H PRN pain #25 tabs 05/05/22 05/09/22 05/08/22 Rx mg tablet 1200 levothyroxine 50 mcg tablet 50 mcg PO QAM 05/05/22 05/06/22 05/08/22 History (Euthyrox) metoprolol tartrate 25 mg tablet 25 mg PO DAILY 05/05/22 05/06/22 05/08/22 History promethazine 25 mg tablet 25 mg PO Q6H PRN nausea and 05/05/22 05/09/22 05/09/22 Rx vomiting #20 tabs 0500 torsemide 20 mg tablet 20 mg PO DAILY PRN Edema 05/05/22 05/06/22 05/08/22 History Allergies Allergy/AdvReac Type Severity Reaction Status Date / Time amoxicillin Allergy Unknown Verified 05/06/22 12:29 aspirin Allergy Unknown Verified 05/06/22 12:29 hydrocodone Allergy Unknown Verified 05/06/22 12:29 hydromorphone [From Dilaudid] Allergy Unknown Verified 05/06/22 12:29 metronidazole Allergy Unknown Verified 05/06/22 12:29 piperacillin Allergy Unknown Verified 05/06/22 12:29 tazobactam Allergy Unknown Verified 05/06/22 12:29 vancomycin Allergy ALGY-Rash Verified 05/09/22 07:06 Vicodin Allergy Unknown Unknown Uncoded 05/06/22 12:29 Victoza AdvReac Mild Unknown Uncoded 05/06/22 12:29 PFSH Acute PFSH: Medical History Atrial fibrillation Atrial fibrillation CHF (congestive heart failure) Fall Generalized weakness Heart failure History of end stage renal disease History of osteomyelitis HTN (hypertension) Hx of chronic arthritis Hx of hyperlipidemia Hx of low back pain Hx of obesity Hx of sleep apnea Hx of type 2 diabetes mellitus Hypertension Morbid obesity Non-pressure chronic ulcer of other part of left foot with necrosis of bone PVD (peripheral vascular disease) Surgical History History of hemicolectomy History of surgery on arm Social History Alcohol intake: never Physical Exam Narrative: General : Patient is well developed , no acute distress, oriented x3 Head : Normal cephalic, a-traumatic. Ears : Pinnae and external canal are normal. Hearing is normal. Eyes : PERRLA, Sclera and injection are normal. No conjunctival discharge. Nose : Mucous membranes are without erythema. Throat : buccal mucosa is normal, gums are without significant recession or hypertrophy. Lungs : Equal chest rise bilaterally, no use of accessory muscles, trachea is midline. Cor : Rate and rhythm are normal. Abdomen : Soft, ND, NT, no g/r/m Rectal: Right perirectal abscess Extremities : No edema, no cyanosis or clubbing, dorsalis pedis pulses are present bilaterally, non-tender to palpation of calves. Upper extremities are normal bilaterally. Back : non-tender to palpation, no CVA tenderness. Neuro : CN II - XII intact, Upper and lower extremities have equal and full strength A&P Assessment and plan (1) Abscess, perirectal: Plan Incision and drainage of right perirectal abscess The risks and benefits of procedure, including but not limited to, bleeding, infection, recurrence, fistula creation, scar, numbness, pain, were explained to the patient. He is understanding of the risks and wishes to proceed. Attestations Medical Necessity Statement*: Home Coding Level of Care Code Acute Community Resource Consultant for g Fwd Diagnoses Abscess, perirectal K61.1
[2022-05-09 07:43] LABS: Glucose Point of Care 102 mg/dL (70-110)
[2022-05-09] MEDS: sodium chloride 0.9% 1,000 ML 30 ML IV (07:45)
[2022-05-09] MEDS: clindamycin 600 MG/50 ML PREMIX 50 MG IV (08:20)
--- NOTE | 2022-05-09 08:54 | P.ANESASSM_ITS ---
Pre-Anesthetic Assessment Height/Weight: Height 1.88 m Weight 247.208 kg Temp Pulse Resp BP Pulse Ox O2 Del Method 98.9 F 53 L 18 184/67 100 05/09/22 07:10 05/09/22 07:10 05/09/22 07:10 05/09/22 07:10 05/09/22 07:10 05/09/22 07:10 Preop Diagnosis: Perirectal abscess Operation Date: 05/09/22 08:25 Proposed Procedures p I and D of abcess right butock 75278 L02.31,K61.1(Not Applicable) - Bradley Silver DO Familial anesthetic complications: none Was Beta Parisa taken within 24 hours: N/A Was Clonidine taken within 24 hours: N/A Last intake: Intake Last Liquid Date 05/08/22 Last Liquid Time 15:00 Last Solid Date 05/08/22 Last Solid Time 15:00 Social No alcohol and No tobacco Exam alert, oriented x 3, clear to auscultation bilaterally and regular rate & rhythm Airway Submandibular: within normal limits Cervical ROM: within normal limits Mallampati: Class II Dentition: chipped CV/HEM Atrial Fibrillation, Arrythmia and Hypertension Metabolic Diabetes Mellitus, Morbid Obesity and Thyroid Disease Neuropsych Neuropathy Anesthetic Plan ASA status: 3 Anesthesia: General Medications/Allergies Home Medications Medication Instructions Recorded Confirmed Last Taken Type apixaban 5 mg tablet (Eliquis) 5 mg PO BID@0600,1700 07/15/20 05/09/22 05/07/22 History 0600 gabapentin 300 mg capsule 900 mg PO BEDTIME@2100 07/15/20 05/06/22 05/08/22 History insulin glargine 100 unit/mL (3 60 unit SUBCUT BID 07/15/20 05/06/22 05/08/22 History mL) subcutaneous pen (Lantus Solostar U-100 Insulin) ferrous sulfate 325 mg (65 mg 325 mg PO QAM 12/09/20 05/06/22 05/08/22 History iron) tablet (iron) amiodarone 200 mg tablet 200 mg PO QAM 12/24/21 05/06/22 05/08/22 History doxycycline hyclate 100 mg tablet 100 mg PO BID 10 days #20 tabs 05/05/22 05/06/22 05/08/22 Rx doxycycline monohydrate 100 mg 100 mg PO BID 05/05/22 05/06/22 05/08/22 History capsule hydrocodone 5 mg-acetaminophen 325 1 tab PO Q6H PRN pain #25 tabs 05/05/22 05/09/22 05/08/22 Rx mg tablet 1200 levothyroxine 50 mcg tablet 50 mcg PO QAM 05/05/22 05/06/22 05/08/22 History (Euthyrox) metoprolol tartrate 25 mg tablet 25 mg PO DAILY 05/05/22 05/06/22 05/08/22 History promethazine 25 mg tablet 25 mg PO Q6H PRN nausea and 05/05/22 05/09/22 05/09/22 Rx vomiting #20 tabs 0500 torsemide 20 mg tablet 20 mg PO DAILY PRN Edema 05/05/22 05/06/22 05/08/22 History Allergies Allergy/AdvReac Type Severity Reaction Status Date / Time amoxicillin Allergy Unknown Verified 05/06/22 12:29 aspirin Allergy Unknown Verified 05/06/22 12:29 hydrocodone Allergy Unknown Verified 05/06/22 12:29 hydromorphone [From Dilaudid] Allergy Unknown Verified 05/06/22 12:29 metronidazole Allergy Unknown Verified 05/06/22 12:29 piperacillin Allergy Unknown Verified 05/06/22 12:29 tazobactam Allergy Unknown Verified 05/06/22 12:29 vancomycin Allergy ALGY-Rash Verified 05/09/22 07:06 Vicodin Allergy Unknown Unknown Uncoded 05/06/22 12:29 Victoza AdvReac Mild Unknown Uncoded 05/06/22 12:29 [facility] Anesthesia Medical History Atrial fibrillation Atrial fibrillation CHF (congestive heart failure) Fall Generalized weakness Heart failure History of end stage renal disease History of osteomyelitis HTN (hypertension) Hx of chronic arthritis Hx of hyperlipidemia Hx of low back pain Hx of obesity Hx of sleep apnea Hx of type 2 diabetes mellitus Hypertension Morbid obesity Non-pressure chronic ulcer of other part of left foot with necrosis of bone PVD (peripheral vascular disease) Surgical History History of hemicolectomy History of surgery on arm Social History Alcohol intake: never Data Anesthesia Cardiac Studies: Echocardiogram Ultrasound 02/04/22
--- NOTE | 2022-05-09 08:57 | PM.OP ---
Operative Report Date of procedure: May 09, 2022 Pre-op diagnosis: Preop Diagnosis Perirectal abscess Post-op diagnosis: same Procedure done: Incision and drainage of perirectal abscess Specimens removed/disposition: Cultures Surgeon: Bradley Silver Anesthesia: General Complications: None apparent Brief History: This is a very pleasant 66-year-old morbidly obese male who has had a perirectal abscess that he has been battling for the last 2 years. Incision and drainage is indicated. The risks and benefits, including scar, numbness, pain, recurrence, fistula formation, damage to surrounding structures, bleeding, infection, were explained to the patient. He was understanding the risks and wished to proceed Procedure: Patient remained in hospital bed in the left lateral decubitus position. General anesthesia was achieved by department of anesthesia. A timeout was performed. All present were in agreement. There was an open and draining sinus from the abscess close to his anus on the right buttock. This was probed and cultured. A counterincision was made 10 cm lateral to this. This area was probed. No new purulence was identified. There was minimal purulence. Wounds were packed with half-inch iodoform. Sterile dressings were applied. Patient tolerated the procedure well.
[2022-05-09] MEDS: fentaNYL 50 mcg/mL INJ 2mL IVP ×2 (09:13→09:23)
[2022-05-09] MEDS: HYDROcodone-acetaminophen 7.5-325 mg Tablet 1 TAB PO (09:55)
--- NOTE | 2022-05-09 16:41 | ANE.PACU2 ---
Inpatient post-anesthesia follow up: Airway intact: Yes Vital signs: Temperature 97.0 F Pulse Rate 55 Respiratory Rate 18 Blood Pressure 181/90 Pulse Oximetry 94 Oxygen Delivery Me thod Room Air Oxygen Flow Rate 10.0 Fraction of Inspir ed Oxygen Hydration adequate: Yes Nausea and vomiting: No Pain level: 3 Mental status: Baseline
== END 2022-05-09 10:34 | disposition home or self-care (01) ==
PROVIDERS: PCP Family Medicine; Visit Provider Surgery
PROC: (CPT 46040; principal; 2022-05-09 08:15)
DX: K61.1 Rectal abscess (principal); I48.91 Unspecified atrial fibrillation; I10 Essential (primary) hypertension; E11.9 Type 2 diabetes mellitus without complications; Z79.4 Long term (current) use of insulin; E66.01 Morbid (severe) obesity due to excess calories; Z68.45 Body mass index [BMI] 70 or greater, adult; I11.0 Hypertensive heart disease with heart failure; I50.9 Heart failure, unspecified; E78.5 Hyperlipidemia, unspecified; Z90.49 Acquired absence of other specified parts of digestive tract
CPT/HCPCS: 46040; 36416; 82962; 87070; 87075; 87077; 87186; 87205; J0330; J2405; J2704; J3010; J3490; J7030

== ENCOUNTER → 2022-05-18 08:59 | Outpatient (BNVA) | payer MEDICARE, MEDICAID, SELFPAY | PROVIDERS: PCP Family Medicine; Visit Provider Thoracic Surgery (Cardiothoracic Vascular Surgery) | DX: I96 Gangrene, not elsewhere classified (principal); E11.621 Type 2 diabetes mellitus with foot ulcer; L89.623 Pressure ulcer of left heel, stage 3; E11.622 Type 2 diabetes mellitus with other skin ulcer; L89.892 Pressure ulcer of other site, stage 2; L89.312 Pressure ulcer of right buttock, stage 2; Z09 Encounter for follow-up examination after completed treatment for conditions other than malignant neoplasm | CPT/HCPCS: 11042; 11045; 97597; 97598 ==

== ENCOUNTER → 2022-05-25 08:56 | Outpatient (BNVA) | payer MEDICARE, MEDICAID, SELFPAY | PROVIDERS: PCP Family Medicine; Visit Provider Nurse Practitioner Family | DX: I96 Gangrene, not elsewhere classified (principal); E11.621 Type 2 diabetes mellitus with foot ulcer; L89.623 Pressure ulcer of left heel, stage 3; E11.622 Type 2 diabetes mellitus with other skin ulcer; L89.892 Pressure ulcer of other site, stage 2; L89.312 Pressure ulcer of right buttock, stage 2 | CPT/HCPCS: 11042; 11045; A6212 ==

== ENCOUNTER → 2022-06-01 08:26 | Outpatient (BNVA) | payer MEDICARE, MEDICAID, SELFPAY | PROVIDERS: PCP Family Medicine; Visit Provider Nurse Practitioner Family | DX: I96 Gangrene, not elsewhere classified (principal); E11.621 Type 2 diabetes mellitus with foot ulcer; L89.623 Pressure ulcer of left heel, stage 3; E11.622 Type 2 diabetes mellitus with other skin ulcer; L89.892 Pressure ulcer of other site, stage 2; L89.312 Pressure ulcer of right buttock, stage 2 | CPT/HCPCS: 11042; 11045; A6212 ×2; A6252; A6253 ==

== ENCOUNTER → 2022-06-08 08:43 | Outpatient (BNVA) | payer MEDICARE, MEDICAID, SELFPAY | PROVIDERS: PCP Family Medicine; Visit Provider Thoracic Surgery (Cardiothoracic Vascular Surgery) | DX: I96 Gangrene, not elsewhere classified (principal); E11.622 Type 2 diabetes mellitus with other skin ulcer; L89.623 Pressure ulcer of left heel, stage 3; L89.892 Pressure ulcer of other site, stage 2; L89.312 Pressure ulcer of right buttock, stage 2 | CPT/HCPCS: 11042; 11045; 97597; 97598 ==

== ENCOUNTER → 2022-06-15 08:30 | Outpatient (BNVA) | payer MEDICARE, MEDICAID, SELFPAY | PROVIDERS: PCP Family Medicine; Visit Provider Thoracic Surgery (Cardiothoracic Vascular Surgery) | DX: I96 Gangrene, not elsewhere classified (principal); E11.622 Type 2 diabetes mellitus with other skin ulcer; L89.623 Pressure ulcer of left heel, stage 3; L89.892 Pressure ulcer of other site, stage 2; L89.312 Pressure ulcer of right buttock, stage 2 | CPT/HCPCS: 11042; 97597; 97598; A6210 ==

== ENCOUNTER → 2022-06-22 08:41 | Outpatient (BNVA) | payer MEDICARE, MEDICAID, SELFPAY | PROVIDERS: PCP Family Medicine; Visit Provider Thoracic Surgery (Cardiothoracic Vascular Surgery) | DX: I96 Gangrene, not elsewhere classified (principal); E11.622 Type 2 diabetes mellitus with other skin ulcer; L89.623 Pressure ulcer of left heel, stage 3; L89.312 Pressure ulcer of right buttock, stage 2; L89.892 Pressure ulcer of other site, stage 2 | CPT/HCPCS: 11042; 97597; 97598; A6252; A6253 ==

== ENCOUNTER → 2022-06-29 08:44 | Outpatient (BNVA) | payer MEDICARE, MEDICAID, SELFPAY | PROVIDERS: PCP Family Medicine; Visit Provider Surgery | DX: I96 Gangrene, not elsewhere classified (principal); E11.622 Type 2 diabetes mellitus with other skin ulcer; L89.623 Pressure ulcer of left heel, stage 3; L89.892 Pressure ulcer of other site, stage 2; L89.312 Pressure ulcer of right buttock, stage 2 | CPT/HCPCS: 11042; 11045; A6197 ==

== ENCOUNTER → 2022-07-06 08:40 | Outpatient (BNVA) | payer MEDICARE, MEDICAID, SELFPAY | PROVIDERS: PCP Family Medicine; Visit Provider Thoracic Surgery (Cardiothoracic Vascular Surgery) | DX: I96 Gangrene, not elsewhere classified (principal); E11.622 Type 2 diabetes mellitus with other skin ulcer; L89.892 Pressure ulcer of other site, stage 2; E11.621 Type 2 diabetes mellitus with foot ulcer; L89.623 Pressure ulcer of left heel, stage 3; L89.312 Pressure ulcer of right buttock, stage 2 | CPT/HCPCS: 11042; 11043; 11045 ==

== ENCOUNTER 2022-07-13 13:16 | Outpatient (CLI) | payer MEDICARE, MEDICAID, SELFPAY ==
--- NOTE | 2022-07-13 13:20 | XR_ITS ---
WS: [id number] XR foot RT min 3V* [id number] REASON FOR EXAM: non-healing ulcer; r/o osteomyelitis FINDINGS: There is severe swelling of the entire foot, most notably over the dorsum of the forefoot. Calcification of small arteries in the forefoot. There is heterogeneous decreased density of the bones. No periosteal reaction is identified. On the oblique view there appears to be erosion and the lateral base of the proximal phalanx of the f ifth toe. This is concerning for osteomyelitis. In the remainder of the examination there are mild changes of osteoarthropathy. Large calcaneal plantar enthesophyte. XR/XR foot RT min 3V* [id number] IMPRESSION: Severe swelling of the foot as above. Possible erosion of the proximal phalanx of the fifth toe as above. In follow-up a, down view of this area in the oblique position may be helpful.
== END 2022-07-13 13:17 | disposition home or self-care (01) ==
PROVIDERS: PCP Family Medicine; Visit Provider Thoracic Surgery (Cardiothoracic Vascular Surgery)
DX: E11.621 Type 2 diabetes mellitus with foot ulcer (principal); L97.509 Non-pressure chronic ulcer of other part of unspecified foot with unspecified severity; M79.89 Other specified soft tissue disorders; L89.623 Pressure ulcer of left heel, stage 3; L89.892 Pressure ulcer of other site, stage 2; L89.312 Pressure ulcer of right buttock, stage 2
CPT/HCPCS: 11042; 11045; 73630; A6252; A6253

== ENCOUNTER 2022-08-06 09:07 | Emergency (ER) | payer MEDICARE, MEDICAID, SELFPAY ==
[2022-08-06] VITALS (10 sets, daily range): BP systolic 116–159; BP diastolic 29–55; PULSE 53–61; RESP 16–17; TEMP 36.6–36.8; O2SAT 95–100; BMI 67.3
[2022-08-06 09:40] LABS: Basophils # 0.1 10^3/uL (0.0-0.1); Basophils % 0.5 %; Eosinophils # 0.2 10^3/uL (0.0-0.8); Eosinophils % 1.5 %; Hematocrit 25.4 % (42.0-52.0); Hemoglobin 7.4 g/dL (11.7-16.6); Lymphocytes # 1.3 10^3/uL (0.8-4.8); Lymphocytes % 12.2 %; Mean Corpuscular HGB Conc 29.1 g/dL (30.0-36.0); Mean Corpuscular Hemoglobin 26.1 pg (28.0-34.0); Mean Corpuscular Volume 89.4 fl (80-94); Mean Platelet Volume 8.4 fL (7.4-10.4); Monocytes % 8.8 %; Neutrophils # 8.23 10^3/uL (1.8-7.7); Neutrophils % 74.9 %; Nucleated Red Blood Cells % 0 %; Platelet Count 432 10^3/cmm (130-400); Red Blood Count 2.84 10^6/uL (4.1-5.3); Red Cell Distribution Width 15.9 % (12.1-15.1)
--- NOTE | 2022-08-06 09:53 | CTR_ITS ---
PROCEDURE INFORMATION: Exam: CT Pelvis With Contrast Exam date and time: 08/06/2022 11:06 AM Age: 66 years old Clinical indication: Other: Pilonidal cyst/abscess TECHNIQUE: Imaging protocol: Computed tomography of the pelvis with contrast. Radiation optimization: All CT scans at this facility use at least one of these dose optimization techniques: automated exposure control; mA and/or kV adjustment per patient size (includes targeted exams where dose is matched to clinical indication); or iterative reconstruction. Contrast material: OMNI 350; Contrast volume: 100 ml; Contrast route: INTRAVENOUS (IV); Other protocol: This patient has received 4 known CTs and 0 known cardiac nuclear medicine studies in the 12 months prior to the current study. COMPARISON: 1. CT angio chest w abd pel w con 02/01/2022 2:[address] abdomen pelvis wo con [id number] 05/05/2022 10:37 AM RADIATION DOSE METRICS: Total DLP (mGy-cm): 1604.86 FINDINGS: Stomach and bowel: 7 cm anterior pelvic wall hernia containing portions of the small bowel. No signs of obstruction within the pelvis and partially visualized abdomen. Appendix: The appendix appears normal. Intraperitoneal space: Perirectal air and fluid collection in the left lower pelvis measuring approximately 5.6 x 3.2 x 4.6. Fistulous connection to the abscess adjacent to the lateral margin of the left bladder. Lymph nodes: No enlarged pelvic lymph nodes. Urinary bladder: Air and fluid-filled collection measuring 5.4 x 3.2 x 5.0 cm adjacent to the lateral margin of the urinary bladder, enlarged compared to prior exam. Thickening of the left lateral wall again noted similar to prior exam. Reproductive: Normal as visualized. Bones/joints: Soft tissue density in the midline infra coccygeal region, but no significant surrounding inflammatory changes or abscess identified, similar to prior exam. Overall no concern for pilonidal abscess. Soft tissues: Mildly increased marginated soft tissue density measuring 11 x 5 x 5 cm in the superficial soft tissues overlying the posterior right sacroiliac joint unchanged from prior exam. CT/CT pelvis w con* [id number] IMPRESSION: 1. Soft tissue density in the midline infra coccygeal region, but no significant surrounding inflammatory changes or abscess identified, similar to prior exam. Overall no concern for significant pilonidal abscess. 2. Persistent left perirectal abscess again noted with fistulous connection to air and fluid collection/abscess adjacent to the left side of the urinary bladder.
[2022-08-06 09:58] LABS: Alanine Aminotransferase 10 U/L (0-41); Albumin Level 3.4 g/dL (3.5-5.2); Alkaline Phosphatase 70 U/L (40-130); Anion Gap 17.1 (5-19); Aspartate Amino Transferase 14 U/L (0-40); Blood Urea Nitrogen 21 mg/dL (8-23); Calcium 8.6 mg/dL (8.5-10.5); Carbon Dioxide 25 mmol/L (22-29); Chloride 98 mmol/L (98-107); Globulin 3.9 g/dL (1.3-4.6); Glomerular Filtration Rate 38.2 mL/min (90-130); Glucose 115 mg/dL (65-115); Osmolality Calculated 286 mOsm/kg (285-295); Potassium 4.1 mmol/L (3.5-5.1); Sodium 136 mmol/L (136-145); Total Bilirubin 0.5 mg/dL (0.15-1.2); Total Protein 7.3 g/dL (6.6-8.7)
--- NOTE | 2022-08-06 10:00 | W.ED.EXTPRO ---
HPI - Extremity Problem General: Chief complaint: Extremity Injury, Lower Stated complaint: WOUNDS TO MT LOWER EXTS Time Seen by Provider: 08/06/22 09:08 Source: patient Mode of arrival: ambulatory History of Present Illness: 66-year-old morbidly obese male with a BMI of 67. He arrives to the emergency room complaining of a presacral or pilonidal cyst ulcer he has had several problems with it in the past its been drained it is causing pain and discomfort again he also has severe wounds on his bilateral lower extremities he usually sees Dr. Williamson at the wound clinic but he has not seen him in the last couple of weeks a home health care nurse has been coming by to do his wound care. He denies any fever sweats or chills. MD Complaint: other (Perirectal pain) Onset (ago): week(s) Pain Consistency: constant Quality: aching Associated symptoms: Reports arthralgias, fever(s), myalgias, rash and short of breath; Deny chest pain Context: immobilization Review of Systems Const: Reports: fever(s), fatigue and malaise; Denies: chills ENMT: Denies: throat pain, ear or mastoid pain, nasal discharge or nasal congestion Card: Denies: chest pain Resp: Reports: dyspnea and wheezing; Denies: productive cough or non-productive cough GI: Denies: abdominal pain, nausea, vomiting, hematemesis, coffee ground emesis, diarrhea, constipation, bloating, hematochezia or melena : Denies: flank pain, dysuria, urinary frequency or urinary urgency Skin/Breast: Reports: rash PFSH ED PFSH: Medical History (Updated 08/06/22 @ 19:54 by Juan Diego Agee DO) Abscess, perirectal Acute kidney injury superimposed on chronic kidney disease MIRTA (acute kidney injury) Atrial fibrillation Atrial fibrillation Chest pain CHF (congestive heart failure) Chill Diabetes Fall Fever Generalized weakness Heart failure History of end stage renal disease History of osteomyelitis HTN (hypertension) Hx of chronic arthritis Hx of hyperlipidemia Hx of low back pain Hx of obesity Hx of sleep apnea Hx of type 2 diabetes mellitus Hypertension Iron deficiency anemia Morbid obesity Non-pressure chronic ulcer of other part of left foot with necrosis of bone Non-ST elevation MA (NSTEMI) Perirectal abscess Pulmonary embolism PVD (peripheral vascular disease) Sepsis Sleep apnea Surgical History History of hemicolectomy History of surgery on arm Social History Alcohol intake: never Physical Exam Const: ORIENTATION/CONSCIOUSNESS: Yes awake, Yes oriented to person, Yes oriented to place and Yes oriented to time HENMT: COMMON NORMALS: normocephalic, atraumatic and hearing grossly normal bilaterally HEAD & SCALP: normocephalic and atraumatic Resp: COMMON NORMALS: normal respiratory effort, No retractions, No use of accessory muscles and clear to auscultation bilaterally AUSCULTATION: clear to auscultation bilaterally Cardio: COMMON NORMALS: regular rate, regular rhythm and No murmurs present (Cardio) RATE: regular rate RHYTHM: regular rhythm GI: COMMON NORMALS: Soft to palpation and No hepatosplenomegaly present AUSCULTATION: Yes normoactive bowel sounds PALPATION: Yes Soft to palpation, No Tenderness to palpation present (GI), No Guarding due to palpation present (GI) and Yes No hepatosplenomegaly present OTHER: Open perirectal abscess with no localized erythema or drainage no evidence of Needle infection. Extremity: OTHER: Multiple stage I and II venous stasis ulcers with Gelfoam in place were wrapped initially when he arrives no acute drainage redness erythema there is some mild serous drainage is significant lesions noted on the heels posterior calves Neuro: SENSORIUM/ORIENTATION: Yes oriented to person, Yes oriented to place and Yes oriented to time Skin: OTHER: In addition to extremity venous stasis ulcers patient has stage II presacral ulcers at the 3 o'clock position from the rectum approximately 1 to 2 inches out from the anal verge there is an open wound no drainage with palpation I cannot express any fluids or no redness erythema does not appear any Course Vital Signs: Vital signs: Vital Signs Temperature 98.3 F 08/06/22 19:06 Pulse Rate 60 08/06/22 19:41 Respiratory Rate 16 08/06/22 19:41 Blood Pressure 159/55 08/06/22 19:41 Pulse Oximetry 96 08/06/22 19:41 Oxygen Delivery Me thod 08/06/22 18:18 MDM - Extremity (Nontraumatic) Medical Decision Making Initially discussed with the hospitalist accepted patient for admission as for surgical consultation. Dr. Cartagena and patient is recommending patient be transferred back to [place]. Patient is refusing to go back to [place] he states he was there before. He will only consent to go to [place]. Were making phone calls to arrange for transfer to [place]. Called multiple hospitals throughout the region to transfer as per recommendation of general surgery. We were able to get a receiving facility at [facility] patient refuses to be transferred there. He was wanting to leave AM. About the time where he was signing out AMA [place] I called and we had called earlier requesting to talk to us about potential transfer. I asked patient if he be willing to go to, [place] he said no. Patient was advised that if this progresses it could get worse he could even of it. He expresses understanding this he was given 1 unit of blood by transfusion. Patient will be leaving [place] I did give him prescription for clindamycin he should not take his Eliquis. Patient advised he can return if he wishes Medical Records I reviewed the patient's medical records. Lab Data I reviewed the patient's lab results. 08/06/22 09:29 08/06/22 09:[address] 08/06/22 09:53 IMPRESSION: 1. Soft tissue density in the midline infra coccygeal region, but no significant surrounding inflammatory changes or abscess identified, similar to prior exam. Overall no concern for significant pilonidal abscess. 2. Persistent left perirectal abscess again noted with fistulous connection to air and fluid collection/abscess adjacent to the left side of the urinary bladder. Laboratory Results WBC 11.0 10^3/uL (4.0-10.0) H 08/06/22 09:29 RBC 2.84 10^6/uL (4.1-5.3) L 08/06/22 09: Hgb 7.4 g/dL (11.7-16.6) L 08/06/22: Hct 25.4 % (42.0-52.0) L 08/06/22: MCV 89.4 fl (80-94) 08/06/22: MCH 26.1 pg (28.0-34.0) L 08/06/22:29 MCHC 29.1 g/dL (30.0-36.0) L 08/06/22 09: RDW 15.9 % (12.1-15.1) H 08/06/22 09: Plt Count 432 10^3/cmm (130-400) H 08/06/22 09:29 MPV 8.4 fL (7.4-10.4) 08/06/22 09: Neut % (Auto) 74.9 % 08/06/22 09: Lymph % (Auto) 12.2 % 08/06/22 09: [place] % (Auto) 8.8 % 08/06/22 09: Eos % (Auto) 1.5 % 08/06/22 09: Baso % (Auto) 0.5 % 08/06/22 09: Neut # (Auto) 8.23 10^3/uL (1.8-7.7) H 08/06/22 09: Lymph # (Auto) 1.3 10^3/uL (0.8-4.8) 08/06/22 09: [place] # (Auto) 1.0 10^3/uL (0.2-0.9) H 08/06/22 09: Eos # (Auto) 0.2 10^3/uL (0.0-0.8) 08/06/22 09: Baso # (Auto) 0.1 10^3/uL (0.0-0.1) 08/06/22 09: Nucleated RBC % (auto) 0 % 08/06/22 09: Nucleated RBCs # 0.0 /100WBC 08/06/22 09: Sodium 136 mmol/L (136-145) 08/06/22 09: Potassium 4.1 mmol/L (3.5-5.1) 08/06/22 09: Chloride 98 mmol/L (98-107) 08/06/22 09: Carbon Dioxide 25 mmol/L (22-29) 08/06/22 09: Anion Gap 17.1 (5-19) 08/06/22 09: BUN 21 mg/dL (8-23) 08/06/22 09: Creatinine 1.8 mg/dL (0.7-1.2) H 08/06/22 09:29 GFR Calculation 38.2 mL/min (90-130) L 08/06/22 09:29 Glucose 115 mg/dL (65-115) 08/06/22 09:29 Calculated Osmolality 286 mOsm/kg (285-295) 08/06/22 09:29 Calcium 8.6 mg/dL (8.5-10.5) 08/06/22 09:29 Total Bilirubin 0.5 mg/dL (0.15-1.2) 08/06/22 09:29 AST 14 U/L (0-40) 08/06/22 09:29 ALT 10 U/L (0-41) 08/06/22 09:29 Alkaline Phosphatase 70 U/L (40-130) 08/06/22 09:29 Total Protein 7.3 g/dL (6.6-8.7) 08/06/22 09:29 Albumin 3.4 g/dL (3.5-5.2) L 08/06/22 09:29 Globulin 3.9 g/dL (1.3-4.6) 08/06/22 09:29 Blood Type O Positive 08/06/22 10:40 Rho(D) Type Positive 08/06/22 10:40 Antibody Screen Negative 08/06/22 10:40 Crossmatch See Detail 08/06/22 10:40 Discharge Plan Discharge Patient Disposition: Left Against Medical Advice Clinical Impression: Perirectal abscess, Anemia, Venous stasis ulcer of lower extremity Condition: Stable Prescriptions: New clindamycin HCl 300 mg capsule 300 mg PO QID 10 Days Qty: 40 0RF No Action acetaminophen-codeine 300-60 mg tablet 1 tab PO BID Qty: 14 0RF hydrocodone-acetaminophen 5-325 mg tablet 1 tab PO BID PRN (Reason: pain) 10 Days Qty: 20 0RF gabapentin 300 mg capsule 900 mg PO BEDTIME@2100 insulin glargine [Lantus Solostar U-100 Insulin] 100 unit/mL (3 mL) insulin pen 60 unit SUBCUT BID Hold Instructions: Resume on 11/10/20. after PCP follow up Eliquis 5 mg tablet 5 mg PO BID@0600,1700 Hold Instructions: Resume on 05/12/22. ferrous sulfate [iron] 325 mg (65 mg iron) Tablet 325 mg PO QAM Stimulant Laxative Plus 8.6-50 mg tablet 1 tab PO BID PRN (Reason: Constipation) oxycodone-acetaminophen 5-325 mg tablet 1 tab PO Q8H PRN (Reason: Pain) hydrocodone-acetaminophen 5-325 mg tablet 1 tab PO BID PRN (Reason: pain) amiodarone 200 mg Tablet 200 mg PO QAM torsemide 20 mg tablet 20 mg PO DAILY PRN (Reason: Edema) levothyroxine [Euthyrox] 50 mcg tablet 50 mcg PO QAM metoprolol tartrate 25 mg tablet 25 mg PO DAILY promethazine 25 mg tablet 25 mg PO Q6H PRN (Reason: nausea and vomiting) Qty: 20 0RF Discharge Orders: Discharge ED (Routine); Ordered 08/06/22 Ordered By: Juan Diego Agee Referrals: Benjamin Cardenas [Primary Care Provider] - Activity Restrictions/Additional Instructions: You were seen today for anemia and a persistent perirectal abscess extends into the pelvis adjacent to your bladder. Your evaluated by multiple physicians the general surgeon at [facility] recommended that you be transferred to a tertiary care center because of the potential complications of this diagnosis. We attempted to make arrangements for multiple hospitals and ultimately were able to get [facility] to except you on transfer. You were transfused 1 unit of blood since she refused transfer you were allowed to leave A. If you wish to return at any time you can. 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
[2022-08-06] MEDS: iohexol 350 mg/mL 500 mL Btl (per mL) IV (11:19)
--- NOTE | 2022-08-06 13:56 | P.CONIM_ITS ---
Providers/Reason For Consult Consulting Physician/Specialty*: ER physician Reason for Consult*: Abnormal CT scan of the pelvis Primary Care Provider: Benjamin Cardenas History of Present Illness History of Present Illness Kenney Olea is a 66 year old male who presents because he is not feeling well. This patient has a morbidly obese gentleman. The patient has been seen frequently here for multiple ailments. The patient has multiple decubitus ulcers. The CT scan reveals a large, persistent perirectal abscess which extends from the perirectal region next to the bladder. This is been seen on previous CT scans. Review of Systems General: Reports: 10 or more systems reviewed and unremarkable except in HPI and below Medications/Allergies Home Medications Medication Instructions Recorded Confirmed Last Taken Type apixaban 5 mg tablet (Eliquis) 5 mg PO BID@0600,1700 07/15/20 05/09/22 05/07/22 History 0600 gabapentin 300 mg capsule 900 mg PO BEDTIME@2100 07/15/20 05/06/22 05/08/22 History insulin glargine 100 unit/mL (3 60 unit SUBCUT BID 07/15/20 05/06/22 05/08/22 History mL) subcutaneous pen (Lantus Solostar U-100 Insulin) ferrous sulfate 325 mg (65 mg 325 mg PO QAM 12/09/20 05/06/22 05/08/22 History iron) tablet (iron) amiodarone 200 mg tablet 200 mg PO QAM 12/24/21 05/06/22 05/08/22 History doxycycline monohydrate 100 mg 100 mg PO BID 05/05/22 05/06/22 05/08/22 History capsule hydrocodone 5 mg-acetaminophen 325 1 tab PO Q6H PRN pain #25 tabs 05/05/22 05/09/22 05/08/22 Rx mg tablet 1200 levothyroxine 50 mcg tablet 50 mcg PO QAM 05/05/22 05/06/22 05/08/22 History (Euthyrox) metoprolol tartrate 25 mg tablet 25 mg PO DAILY 05/05/22 05/06/22 05/08/22 History promethazine 25 mg tablet 25 mg PO Q6H PRN nausea and 05/05/22 05/09/22 05/09/22 Rx vomiting #20 tabs 0500 torsemide 20 mg tablet 20 mg PO DAILY PRN Edema 05/05/22 05/06/22 05/08/22 History hydrocodone 7.5 mg-acetaminophen 1 tab PO Q6H PRN pain #10 tabs 05/09/22 Unknown Rx 325 mg tablet acetaminophen 300 mg-codeine 60 mg 1 tab PO BID #14 tabs 05/25/22 05/25/22 Unknown Rx tablet hydrocodone 5 mg-acetaminophen 325 1 tab PO BID PRN pain 10 days #20 06/15/22 06/15/22 Unknown Rx mg tablet tabs Allergies Allergy/AdvReac Type Severity Reaction Status Date / Time amoxicillin Allergy Unknown Verified 05/06/22 12:29 aspirin Allergy Unknown Verified 05/06/22 12:29 hydrocodone Allergy Unknown Verified 05/06/22 12:29 hydromorphone [From Dilaudid] Allergy Unknown Verified 05/06/22 12:29 metronidazole Allergy Unknown Verified 05/06/22 12:29 piperacillin Allergy Unknown Verified 05/06/22 12:29 tazobactam Allergy Unknown Verified 05/06/22 12:29 vancomycin Allergy ALGY-Rash Verified 05/09/22 07:06 Vicodin Allergy Unknown Unknown Uncoded 05/06/22 12:29 Victoza AdvReac Mild Unknown Uncoded 05/06/22 12:29 PFSH Acute PFSH: Medical History (Updated 08/06/22 @ 14:01 by Jennifer Cartagena MD) Abscess, perirectal Acute kidney injury superimposed on chronic kidney disease MIRTA (acute kidney injury) Atrial fibrillation Atrial fibrillation Chest pain CHF (congestive heart failure) Chill Diabetes Fall Fever Generalized weakness Heart failure History of end stage renal disease History of osteomyelitis HTN (hypertension) Hx of chronic arthritis Hx of hyperlipidemia Hx of low back pain Hx of obesity Hx of sleep apnea Hx of type 2 diabetes mellitus Hypertension Iron deficiency anemia Morbid obesity Non-pressure chronic ulcer of other part of left foot with necrosis of bone Non-ST elevation DC (NSTEMI) Perirectal abscess Pulmonary embolism PVD (peripheral vascular disease) Sepsis Sleep apnea Surgical History History of hemicolectomy History of surgery on arm Social History Alcohol intake: never Vitals/I&O/Wt Last Vital Signs Temp 97.8 F 08/06/22 09:08 Pulse 54 L 08/06/22 11:30 Resp 17 08/06/22 11:30 BP 137/34 08/06/22 11:30 Pulse Ox 99 08/06/22 11:30 O2 Del Method 08/06/22 11:30 Weight last 48 hrs Weight 525 lb Physical Exam Narrative: Generally: The patient is in a large bariatric bed. Extremely morbidly obese. Lungs: Clear to auscultation Heart: Regular rate and rhythm Abdomen: Difficult to examine because of the patient's size. The patient does not have any tenderness. Pelvis: I did not logroll the patient because of the patient's size. Extremities: Patient has ulcers on both feet. Patient has some erythema on his right foot. This may be suggestive of cellulitis. Neurologic: The patient is awake, alert, and orient x3. The patient's [place] Coma Scale is 15. Data 08/06/22 09:29 08/06/22 09:29 Micro: Microbiology 08/06/22 10:40 Blood Culture - Preliminary Blood SPECIMEN COLLECTED 08/06/22 09:47 Blood Culture - Preliminary Blood SPECIMEN COLLECTED A&P Assessment and plan (1) Anemia: Treatment per hospitalist (2) Perirectal abscess: This patient is not a candidate for surgery at this institution. The patient needs to be at a specialized institution where they can take care of patients who are over 500/600 pounds. Because of this patient size, is even difficult to examine the patient. Is difficult to turn the patient without 4 or 5 people to help. Would recommend transferring this patient to a level of higher care. This patient has multiple wounds. The patient needs to have aggressive wound care therapy. This patient's perirectal wound probably needs to be examined under anesthesia. Again, I do not believe this can be done at this institution. Thank you so much for this consult. Coding Level of Care Code Acute Code for g Fwd Diagnoses Anemia D64.9 Perirectal abscess K61.1
[2022-08-06] MEDS: clindamycin 900 MG/50 ML PREMIX 100 MG IV (20:16)
== END 2022-08-06 21:55 | disposition left against medical advice (07) ==
PROVIDERS: Emergency Provider Family Medicine; PCP Family Medicine
DX: K61.1 Rectal abscess (principal); D64.9 Anemia, unspecified; I83.009 Varicose veins of unspecified lower extremity with ulcer of unspecified site; L97.919 Non-pressure chronic ulcer of unspecified part of right lower leg with unspecified severity; L97.929 Non-pressure chronic ulcer of unspecified part of left lower leg with unspecified severity; Z79.01 Long term (current) use of anticoagulants; Z79.4 Long term (current) use of insulin; Z53.21 Procedure and treatment not carried out due to patient leaving prior to being seen by health care provider; I13.2 Hypertensive heart and chronic kidney disease with heart failure and with stage 5 chronic kidney disease, or end stage renal disease; N18.6 End stage renal disease; E11.22 Type 2 diabetes mellitus with diabetic chronic kidney disease; I50.9 Heart failure, unspecified; E78.5 Hyperlipidemia, unspecified; I25.2 Old myocardial infarction
CPT/HCPCS: 12345; 36415; 36430; 72193; 80053; 85025; 86850; 86900; 86920; 87040; 96365; 99285; J3490; P9016; Q9967

== ENCOUNTER 2022-08-10 12:54 | Emergency (ER) | payer MEDICARE, MEDICAID, SELFPAY ==
[2022-08-10] VITALS (20 sets, daily range): BP systolic 115–178; BP diastolic 46–90; PULSE 48–101; RESP 2–29; TEMP 36.3–36.9; O2SAT 91–99; BMI 67.3
--- NOTE | 2022-08-10 13:49 | W.ED.GENADLT ---
HPI - General Adult General: Chief complaint: General Medical Stated complaint: abd pain, and possible foot infection Time Seen by Provider: 08/10/22 13:49 History of Present Illness: Mr. Marie is a 66-year-old gentleman with complex past medical history including perirectal abscess, diabetes, chronic lower extremity wounds presenting to the emergency department for 2 concerns. He reports increased pain and redness on a wound that he has on his right lower extremity from the base of his foot. He notes generalized malaise and subjective chills associated with some diarrhea. He saw wound care today and they referred him to the emergency department for further evaluation as debridement probed to bone with a worsening wound. Additionally the patient continues to have worsening rectal pain, blood in stool, and painful bowel movements associated with a known perirectal abscess. He was seen in the emergency department on 08/06 and imaging at that time noted perirectal abscess with intra-abdominal abscesses. It took a fair amount of time secondary to limited bed availability in the region to find accepting facility and by the time an accepting facility was identified for transfer as we cannot perform the bariatric surgery that he requires he decided he did not wish to be transferred. Symptoms have worsened since 1 week ago. Overall course of illness has worsened. Intensity of generalized symptoms is moderate to severe. No other specific changes in health, exacerbating, or alleviating factors identified. Onset (ago): day(s) Location: abdomen, pelvis, buttocks and lower extremity Radiation: back Severity: moderate Quality: aching and sharp Pain Consistency: constant Relieving factors: none Exacerbating factors: movement and other Associated symptoms: Reports decreased appetite, fevers/chills, malaise and other Review of Systems General: Reports: 10 or more systems reviewed and unremarkable except in HPI and below Const: Reports: malaise [facility] PFSH: Medical History Abscess, perirectal Acute kidney injury superimposed on chronic kidney disease MIRTA (acute kidney injury) Atrial fibrillation Atrial fibrillation Chest pain CHF (congestive heart failure) Chill Diabetes Fall Fever Generalized weakness Heart failure History of end stage renal disease History of osteomyelitis HTN (hypertension) Hx of chronic arthritis Hx of hyperlipidemia Hx of low back pain Hx of obesity Hx of sleep apnea Hx of type 2 diabetes mellitus Hypertension Iron deficiency anemia Morbid obesity Non-pressure chronic ulcer of other part of left foot with necrosis of bone Non-ST elevation MN (NSTEMI) Perirectal abscess Pulmonary embolism PVD (peripheral vascular disease) Sepsis Sleep apnea Surgical History History of hemicolectomy History of surgery on arm Social History Alcohol intake: never Physical Exam Const: COMMON NORMALS: alert GENERAL APPEARANCE: cooperative, well developed and ill appearing (Somewhat) NUTRITIONAL APPEARANCE: obese morbidly obese HENMT: COMMON NORMALS: normocephalic and atraumatic HEAD & SCALP: normocephalic and atraumatic Eye: COMMON NORMALS: conjunctivae normal CONJUNCTIVA: Yes conjunctivae normal SCLERA: sclerae normal Neck/C-Spine: COMMON NORMALS: supple GENERAL: Yes trachea midline Resp: EFFORT & INSPECTION: Yes able to speak in complete sentences Cardio: COMMON NORMALS: regular rate and regular rhythm RATE: regular rate RHYTHM: regular rhythm GI: COMMON NORMALS: Soft to palpation PALPATION: Yes Soft to palpation, Yes Tenderness to palpation present (GI), No Guarding due to palpation present (GI) and No Rigid due to palpation OTHER: Limited history of exams secondary to body habitus. Perirectal erythema and ulceration approximately 3 o'clock position with central mild opening. There is drainage and tenderness to palpation. Extremity: NARRATIVE EXTREMITY EXAM: Scattered chronic appearing ulcers primarily in the distal left lower extremity, no evidence of superimposed cellulitis. 2+ edema. Right lower extremity with large wound on the base of the medial plantar foot. That probes to bone. Increased swelling and erythema about the foot with palpable pulses DP/PT. Concerning for infection. GENERAL: Yes normal exam except as noted and Yes edema Neuro: COMMON NORMALS: moves all extremities SENSORIUM/ORIENTATION: Yes alert and No Orientation impaired Psych: COMMON NORMALS: mental status grossly normal and Normal thought process present THOUGHT PROCESS: Normal thought process present Course Vital Signs: Vital signs: Vital Signs Temperature 98.4 F 08/10/22 22:30 Pulse Rate 55 L 08/11/22 08:14 Respiratory Rate 18 08/11/22 07:31 Blood Pressure 127/53 08/11/22 08:14 Pulse Oximetry 98 08/11/22 08:14 Oxygen Delivery Me thod 08/11/22 06:00 Oxygen Flow Rate 2 08/11/22 06:00 MDM - General Adult Medical Decision Making 66-year-old gentleman with complex history including insulin-dependent diabetes, chronic venous wounds on bilateral lower extremities, morbid obesity, and known history of perirectal abscess presenting to the emergency department for further evaluation. Patient endorses mild to moderate generalized symptoms that have progressively worsened. He was seen in wound care clinic earlier today. Exam as above. Patient is nontoxic however exam is very challenging secondary to body habitus. Labs notable for mild leukocytosis, hemoglobin 8.7, platelet count elevated at 522. Metabolic panel with normal electrolytes, baseline CKD of 1.8, no evidence of DKA. Inflammatory markers are elevated with ESR of 30 and CRP of 110.7. Imaging of the foot reveals pathologic fracture and bony involvement as well as soft tissue swelling and gas concerning for osteomyelitis with acute infection. Given his physical exam I do not believe that this is necrotizing fasciitis and on serial exams appearance is similar. Soft tissue gas is either contiguous to soft tissue defect or related to osteomyelitis most likely. CT appears worse than prior. The patient has known perirectal component of abscess in comparison to 4 days ago which has enlarged now measuring 6.1 x 2.6 x 4.3 cm. There is a fistulous tract that goes towards the bladder and a left abscess remains similar to minimally smaller at 4.4 x 2.6 x 5 cm. Additionally the patient has a new 2.8 cm fluid and air-containing density concerning for abscess at the midline inferior coccygeal region. We do not have capability to perform the type of bariatric surgery that this patient requires at our facility. Therefore we will look for transfer. In the meantime I will treat the patient with analgesia and broad-spectrum antibiotics. Blood cultures have been obtained. Medical Records I reviewed the patient's medical records. Lab Data I reviewed the patient's lab results. 08/10/22 14:12 08/10/22 14:12 Radiology Impressions Abdomen/Pelvis CT 08/10/22 15:11 IMPRESSION: New fluid collection in the midline inferior coccygeal region suspicious for an abscess measuring 2.8 cm. Adjacent soft tissue thickening is similar. This may have a fistulous connection with the perirectal abscess, which is now larger. The abscess adjacent to the left bladder wall is mildly smaller. The fistulous tract to the perirectal collection is unchanged. Persistent left bladder wall thickening. Foot CT 08/10/22 15:11 IMPRESSION: 1. Findings on CT highly suspicious for osteomyelitis in the 5th metatarsal head with large overlying soft tissue ulcer. There is also a fracture of the 5th metatarsal head, which is suspected to be pathologic. These findings can be confirmed by MRI for follow-up. 2. Diffuse skin thickening suggests cellulitis. No drainable fluid collection or abscess visualized. There is soft tissue gas present, suspicious for gas-forming infection. Laboratory Results WBC 10.7 10^3/uL (4.0-10.0) H 08/10/22 14:12 RBC 3.32 10^6/uL (4.1-5.3) L 08/10/22 14:12 Hgb 8.7 g/dL (11.7-16.6) L 08/10/22 14:12 Hct 29.7 % (42.0-52.0) L 08/10/22 14:12 MCV 89.5 fl (80-94) 08/10/22 14:12 MCH 26.2 pg (28.0-34.0) L 08/10/22 14:12 MCHC 29.3 g/dL (30.0-36.0) L 08/10/22 14:12 RDW 16.4 % (12.1-15.1) H 08/10/22 14:12 Plt Count 522 10^3/cmm (130-400) H 08/10/22 14:12 MPV 8.2 fL (7.4-10.4) 08/10/22 14:12 Neut % (Auto) 71.5 % 08/10/22 14:12 Lymph % (Auto) 13.6 % 08/10/22 14:12 Petroleum % (Auto) 7.9 % 08/10/22 14:12 Eos % (Auto) 1.4 % 08/10/22 14:12 Baso % (Auto) 0.7 % 08/10/22 14:12 Neut # (Auto) 7.64 10^3/uL (1.8-7.7) 08/10/22 14:12 Lymph # (Auto) 1.5 10^3/uL (0.8-4.8) 08/10/22 14:12 Petroleum # (Auto) 0.9 10^3/uL (0.2-0.9) 08/10/22 14:12 Eos # (Auto) 0.2 10^3/uL (0.0-0.8) 08/10/22 14:12 Baso # (Auto) 0.1 10^3/uL (0.0-0.1) 08/10/22 14:12 Nucleated RBC % (auto) 0 % 08/10/22 14:12 Nucleated RBCs # 0.0 /100WBC 08/10/22 14:12 ESR 30 mm/hr (0-10) H 08/10/22 14:12 Sodium 137 mmol/L (136-145) 08/10/22 14:12 Potassium 5.1 mmol/L (3.5-5.1) 08/10/22 14:12 Chloride 100 mmol/L (98-107) 08/10/22 14:12 Carbon Dioxide 25 mmol/L (22-29) 08/10/22 14:12 Anion Gap 17.1 (5-19) 08/10/22 14:12 BUN 19 mg/dL (8-23) 08/10/22 14:12 Creatinine 1.8 mg/dL (0.7-1.2) H 08/10/22 14:12 GFR Calculation 38.2 mL/min (90-130) L 08/10/22 14:12 Glucose 130 mg/dL (65-115) H 08/10/22 14:12 Calculated Osmolality 288 mOsm/kg (285-295) 08/10/22 14:12 Lactate 0.9 mmol/L (0.5-2.2) 08/10/22 19:45 Calcium 8.6 mg/dL (8.5-10.5) 08/10/22 14:12 Total Bilirubin 0.4 mg/dL (0.15-1.2) 08/10/22 14:12 AST 9 U/L (0-40) 08/10/22 14:12 ALT 7 U/L (0-41) 08/10/22 14:12 Alkaline Phosphatase 72 U/L (40-130) 08/10/22 14:12 C-Reactive Protein 110.7 mg/L (0.0-4.9) H 08/10/22 14:12 Total Protein 7.8 g/dL (6.6-8.7) 08/10/22 14:12 Albumin 3.6 g/dL (3.5-5.2) 08/10/22 14:12 Globulin 4.2 g/dL (1.3-4.6) 08/10/22 14:12 SARS-CoV-2 Ag (Rapid) negative (Negative) 08/11/22 00:09 Critical Care Time Critical Care Time: Critical Care Time: Yes Total Critical Care Time: 40 Attestation: Due to a high probability of clinically significant, possibly life threatening deterioration, the patient required my highest level of attention and preparedness to intervene emergently and I personally spent this critical care time directly and personally managing the patient. This critical care time included obtaining a history; examining the patient; pulse oximetry; ordering and review of laboratory and imaging studies; arranging urgent treatment with development of a management plan; evaluation of patient's response to treatment; frequent reassessment; and, discussions with other providers as applicable. It was exclusive of separately billable procedures. Primary system involved is infectious disease Discharge Plan Discharge Patient Disposition: Xfer Short-Term Hosp Clinical Impression: Perirectal abscess, Intra-abdominal abscess, Osteomyelitis, CKD (chronic kidney disease) Condition: Stable Referrals: Benjamin Cardenas [Primary Care Provider] - Coding Level of Care Code ED Meat Inspector for Deisi Vogt
[2022-08-10 14:27] LABS: Basophils # 0.1 10^3/uL (0.0-0.1); Basophils % 0.7 %; Eosinophils # 0.2 10^3/uL (0.0-0.8); Eosinophils % 1.4 %; Hematocrit 29.7 % (42.0-52.0); Hemoglobin 8.7 g/dL (11.7-16.6); Lymphocytes # 1.5 10^3/uL (0.8-4.8); Lymphocytes % 13.6 %; Mean Corpuscular HGB Conc 29.3 g/dL (30.0-36.0); Mean Corpuscular Hemoglobin 26.2 pg (28.0-34.0); Mean Corpuscular Volume 89.5 fl (80-94); Mean Platelet Volume 8.2 fL (7.4-10.4); Monocytes # 0.9 10^3/uL (0.2-0.9); Monocytes % 7.9 %; Neutrophils # 7.64 10^3/uL (1.8-7.7); Neutrophils % 71.5 %; Nucleated Red Blood Cells % 0 %; Platelet Count 522 10^3/cmm (130-400); Red Blood Count 3.32 10^6/uL (4.1-5.3); Red Cell Distribution Width 16.4 % (12.1-15.1); White Blood Count 10.7 10^3/uL (4.0-10.0)
[2022-08-10 14:31] LABS: Erythrocyte Sedimentation Rate 30 mm/hr (0-10)
[2022-08-10 14:47] LABS: Alanine Aminotransferase 7 U/L (0-41); Albumin Level 3.6 g/dL (3.5-5.2); Alkaline Phosphatase 72 U/L (40-130); Anion Gap 17.1 (5-19); Aspartate Amino Transferase 9 U/L (0-40); Blood Urea Nitrogen 19 mg/dL (8-23); C Reactive Protein 110.7 mg/L (0.0-4.9); Calcium 8.6 mg/dL (8.5-10.5); Carbon Dioxide 25 mmol/L (22-29); Chloride 100 mmol/L (98-107); Globulin 4.2 g/dL (1.3-4.6); Glomerular Filtration Rate 38.2 mL/min (90-130); Glucose 130 mg/dL (65-115); Osmolality Calculated 288 mOsm/kg (285-295); Potassium 5.1 mmol/L (3.5-5.1); Sodium 137 mmol/L (136-145); Total Bilirubin 0.4 mg/dL (0.15-1.2); Total Protein 7.8 g/dL (6.6-8.7)
--- NOTE | 2022-08-10 15:07 | PC.PHAR ---
pt states he takes care of his own medications-pt states he is unsure if he is still taking levothyroxine 50mcg daily ext med history shows last filled 08/07/22 90d/s-pt states he is unsure if he still takes toresmide 20mg daily ext med history shows last filled 05/23/22 90d/s-pt state he no longer takes prilosec 40mg daily ext med history shows last filled 07/25/22 30d/s-notes are made in the pharmacy comments
--- NOTE | 2022-08-10 15:11 | CTR_ITS ---
PROCEDURE INFORMATION: Exam: CT Abdomen And Pelvis With Contrast Exam date and time: 08/10/2022 5:20 PM Age: 66 years old Clinical indication: Condition or disease; Abscess; Abscess location: Brenda rectal with bleeding; Additional info: Perirectal abscess TECHNIQUE: Imaging protocol: Computed tomography of the abdomen and pelvis with contrast. Radiation optimization: All CT scans at this facility use at least one of these dose optimization techniques: automated exposure control; mA and/or kV adjustment per patient size (includes targeted exams where dose is matched to clinical indication); or iterative reconstruction. Contrast material: OMNIPAQUE 350; Contrast volume: 95 ml; Contrast route: INTRAVENOUS (IV); Other protocol: This patient has received 6 known CTs and 0 known cardiac nuclear medicine studies in the 12 months prior to the current study. COMPARISON: CT pelvis w con* [id number] 08/06/2022 11:06 AM RADIATION DOSE METRICS: Total DLP (mGy-cm): 2003.13 FINDINGS: Lungs: Minimal bibasilar atelectasis. Liver: Normal. No mass. Gallbladder and bile ducts: Gallstones are unchanged. Pancreas: Normal. No ductal dilation. Spleen: Normal. No splenomegaly. Adrenal glands: Normal. No mass. Kidneys and ureters: Normal. No hydronephrosis. Stomach and bowel: Negative. Appendix: No evidence of appendicitis. Intraperitoneal space: Unremarkable. No free air. No significant fluid collection. Vasculature: Unremarkable. No abdominal aortic aneurysm. Lymph nodes: Unremarkable. No enlarged lymph nodes. Urinary bladder: Air and fluid containing collection adjacent to the left margin of the urinary bladder measures 4.4 by 2.6 by 5.0 cm this is minimally smaller than previous exam. Thickening of the adjacent left lateral bladder wall is unchanged. Fistulous tract between this collection and the left perirectal abscess is unchanged. The perirectal component of the abscess measures 6.1 x 2.6 x 4.3 cm now measuring larger than the previous study. No new collection is seen. Reproductive: Unremarkable as visualized. Bones/joints: Soft tissue density in the midline inferior coccygeal region is again seen. There is a new small air-containing fluid collection on series 4, image 92 measuring 2.8 cm, suspicious for an abscess. This may connect with the perirectal abscess via fistulization. Soft tissues: Inferior ventral abdominal wall hernia in the midline containing nonobstructed loops of bowel, unchanged. Other findings: The study is limited by body habitus. CT/CT abdomen pelvis w con* [id number] IMPRESSION: New fluid collection in the midline inferior coccygeal region suspicious for an abscess measuring 2.8 cm. Adjacent soft tissue thickening is similar. This may have a fistulous connection with the perirectal abscess, which is now larger. The abscess adjacent to the left bladder wall is mildly smaller. The fistulous tract to the perirectal collection is unchanged. Persistent left bladder wall thickening.
--- NOTE | 2022-08-10 15:11 | CTR_ITS ---
PROCEDURE INFORMATION: Exam: CT Right Lower Extremity With Contrast, Foot Exam date and time: 08/10/2022 5:32 PM Age: 66 years old Clinical indication: Cellulitis and edema; Location not specified; Right; Patient HX: Diabetic foot wound TECHNIQUE: Imaging protocol: CT of the Right lower extremity with intravenous contrast was performed. Exam focused on the foot. Radiation optimization: All CT scans at this facility use at least one of these dose optimization techniques: automated exposure control; mA and/or kV adjustment per patient size (includes targeted exams where dose is matched to clinical indication); or iterative reconstruction. Contrast material: OMNIPAQUE 350; Contrast volume: 75 ml; Contrast route: NON-VASCULAR INTERVENTIONAL INJECTION (NON-VASCULA; Other protocol: This patient has received 6 known CTs and 0 known cardiac nuclear medicine studies in the 12 months prior to the current study. COMPARISON: CR XR foot RT min 3V* [id number] 07/13/2022 1:21 PM RADIATION DOSE METRICS: Total DLP (mGy-cm): 226.86 FINDINGS: Bones/joints: There is osseous lucency in the 5th metatarsal head with nondisplaced fracture which is likely pathologic. This is suspicious for osteomyelitis. [id number] scattered degenerative changes. Soft tissues: Subcutaneous soft tissue thickening is seen in the right lower extremity distally. There is soft tissue gas in the dorsal forefoot lateral aspect. A soft tissue ulcer is seen overlying the 5th metatarsal head with a bone abutting the skin surface. CT/CT foot RT w con [id number] IMPRESSION: 1. Findings on CT highly suspicious for osteomyelitis in the 5th metatarsal head with large overlying soft tissue ulcer. There is also a fracture of the 5th metatarsal head, which is suspected to be pathologic. These findings can be confirmed by MRI for follow-up. 2. Diffuse skin thickening suggests cellulitis. No drainable fluid collection or abscess visualized. There is soft tissue gas present, suspicious for gas-forming infection.
[2022-08-10] MEDS: morphine 4 mg/mL SDV 1 mL IVP ×3 (18:05→23:30)
--- NOTE | 2022-08-10 18:13 | PC.NURSE ---
PT PLACED ON AIR FRANK FOR CT
[2022-08-10] MEDS: clindamycin 600 MG/50 ML PREMIX 100 MG IV (18:41)
--- NOTE | 2022-08-10 19:15 | PC.NURSE ---
report received from Jamison Garcia RN. Pt lying supine in bed, blood pressure cuff on, clindamycin running in right AC IV. Pt rates pain 4/10 after having morphine last hour. Denies any needs at this time.
[2022-08-10] MEDS: vancomycin 1,500 MG/300 ML PIGGYBACK 200 MG IV (19:22)
[2022-08-10 20:08] LABS: Lactate (Lactic Acid level) 0.9 mmol/L (0.5-2.2)
[2022-08-10] MEDS: piperacillin-tazobactam 4.5 GM in sodium chloride 0.9% (plus) 50 ML IV (20:59)
[2022-08-11] VITALS (9 sets, daily range): BP systolic 108–132; BP diastolic 42–85; PULSE 55–102; RESP 15–22; O2SAT 93–99
[2022-08-11 00:36] LABS: SARS Covid-2 Antigen negative (Negative)
--- NOTE | 2022-08-11 02:00 | PC.NURSE ---
Report called. REport called to receiving facility, [facility] @ 2312. Spoke with Charge nurse, Leila Hernandez RN.
[2022-08-11] MEDS: clindamycin 600 MG/50 ML PREMIX 100 MG IV (02:39)
[2022-08-11] MEDS: morphine 4 mg/mL SDV 1 mL IVP ×3 (02:59→07:31)
[2022-08-11] MEDS: piperacillin-tazobactam 4.5 GM in sodium chloride 0.9% (plus) 50 ML IV (03:11)
--- NOTE | 2022-08-11 06:19 | PC.NURSE ---
Daughter October contacted per request with information on receiving facility and update with fathers condition.
== END 2022-08-11 08:00 | disposition short-term general hospital (02) ==
PROVIDERS: Emergency Provider Emergency Medicine; PCP Family Medicine
DX: K61.1 Rectal abscess (principal); K65.1 Peritoneal abscess; M86.9 Osteomyelitis, unspecified; I13.0 Hypertensive heart and chronic kidney disease with heart failure and stage 1 through stage 4 chronic kidney disease, or unspecified chronic kidney disease; E11.22 Type 2 diabetes mellitus with diabetic chronic kidney disease; N18.9 Chronic kidney disease, unspecified; I50.9 Heart failure, unspecified; E78.5 Hyperlipidemia, unspecified; I25.2 Old myocardial infarction; Z20.822 Contact with and (suspected) exposure to COVID-19; I96 Gangrene, not elsewhere classified; E11.621 Type 2 diabetes mellitus with foot ulcer; L89.892 Pressure ulcer of other site, stage 2; Z09 Encounter for follow-up examination after completed treatment for conditions other than malignant neoplasm; E11.622 Type 2 diabetes mellitus with other skin ulcer; L97.822 Non-pressure chronic ulcer of other part of left lower leg with fat layer exposed
CPT/HCPCS: 11042; 11045; 36415; 73701; 74177; 80053; 83605; 85025; 85651; 86140; 87040; 87426; 96365; 96367; 96375; 97597; 99285; J2270; J2543; J3370; J3490; Q9967

== ENCOUNTER → 2023-01-13 13:04 | Outpatient (BNVA) | payer MEDICARE, MEDICAID, SELFPAY | PROVIDERS: PCP Family Medicine; Visit Provider Thoracic Surgery (Cardiothoracic Vascular Surgery) | DX: E11.52 Type 2 diabetes mellitus with diabetic peripheral angiopathy with gangrene (principal); L97.812 Non-pressure chronic ulcer of other part of right lower leg with fat layer exposed; L97.822 Non-pressure chronic ulcer of other part of left lower leg with fat layer exposed; L89.153 Pressure ulcer of sacral region, stage 3; L89.622 Pressure ulcer of left heel, stage 2 | CPT/HCPCS: 11042; 97597; 97598; 99213 ==

== ENCOUNTER → 2023-01-20 14:47 | Outpatient (BNVA) | payer MEDICARE, MEDICAID, SELFPAY | PROVIDERS: PCP Family Medicine; Visit Provider Thoracic Surgery (Cardiothoracic Vascular Surgery) | DX: E11.52 Type 2 diabetes mellitus with diabetic peripheral angiopathy with gangrene (principal); L97.812 Non-pressure chronic ulcer of other part of right lower leg with fat layer exposed; L97.822 Non-pressure chronic ulcer of other part of left lower leg with fat layer exposed; L97.422 Non-pressure chronic ulcer of left heel and midfoot with fat layer exposed | CPT/HCPCS: 97597; 97598; A6252; A6253 ==

== ENCOUNTER → 2023-01-30 07:49 | Outpatient (BNVA) | payer MEDICARE, MEDICAID, SELFPAY | PROVIDERS: PCP Family Medicine; Visit Provider Nurse Practitioner Family | DX: E11.52 Type 2 diabetes mellitus with diabetic peripheral angiopathy with gangrene (principal); L97.812 Non-pressure chronic ulcer of other part of right lower leg with fat layer exposed; L97.822 Non-pressure chronic ulcer of other part of left lower leg with fat layer exposed; L89.153 Pressure ulcer of sacral region, stage 3; L89.622 Pressure ulcer of left heel, stage 2 | CPT/HCPCS: 97597; 97598; A6252; A6253 ==

== ENCOUNTER → 2023-02-06 08:29 | Outpatient (BNVA) | payer MEDICARE, MEDICAID, SELFPAY | PROVIDERS: PCP Family Medicine; Visit Provider Thoracic Surgery (Cardiothoracic Vascular Surgery) | DX: E11.52 Type 2 diabetes mellitus with diabetic peripheral angiopathy with gangrene (principal); L97.812 Non-pressure chronic ulcer of other part of right lower leg with fat layer exposed; L97.822 Non-pressure chronic ulcer of other part of left lower leg with fat layer exposed; L89.153 Pressure ulcer of sacral region, stage 3; L89.622 Pressure ulcer of left heel, stage 2 | CPT/HCPCS: 11042; 11045; 97597; 97598; A6252; A6253 ==

== ENCOUNTER → 2023-02-13 08:36 | Outpatient (BNVA) | payer MEDICARE, MEDICAID, SELFPAY | PROVIDERS: PCP Family Medicine; Visit Provider Thoracic Surgery (Cardiothoracic Vascular Surgery) | DX: E11.52 Type 2 diabetes mellitus with diabetic peripheral angiopathy with gangrene (principal); L97.812 Non-pressure chronic ulcer of other part of right lower leg with fat layer exposed; L97.822 Non-pressure chronic ulcer of other part of left lower leg with fat layer exposed; L89.153 Pressure ulcer of sacral region, stage 3; L89.622 Pressure ulcer of left heel, stage 2 | CPT/HCPCS: 11042; 11045; 97597; 97598; A6252; A6253 ==

== ENCOUNTER → 2023-02-20 08:24 | Outpatient (BNVA) | payer MEDICARE, MEDICAID, SELFPAY | PROVIDERS: PCP Family Medicine; Visit Provider Thoracic Surgery (Cardiothoracic Vascular Surgery) | DX: E11.52 Type 2 diabetes mellitus with diabetic peripheral angiopathy with gangrene (principal); L97.812 Non-pressure chronic ulcer of other part of right lower leg with fat layer exposed; L97.822 Non-pressure chronic ulcer of other part of left lower leg with fat layer exposed; L89.153 Pressure ulcer of sacral region, stage 3; L89.622 Pressure ulcer of left heel, stage 2 | CPT/HCPCS: 11042; 11045; 97597; 97598; A6197; A6251; A6253 ==

== ENCOUNTER → 2023-02-27 07:59 | Outpatient (BNVA) | payer MEDICARE, MEDICAID, SELFPAY | PROVIDERS: PCP Family Medicine; Visit Provider Thoracic Surgery (Cardiothoracic Vascular Surgery) | DX: E11.52 Type 2 diabetes mellitus with diabetic peripheral angiopathy with gangrene (principal); L97.822 Non-pressure chronic ulcer of other part of left lower leg with fat layer exposed; L97.512 Non-pressure chronic ulcer of other part of right foot with fat layer exposed; L89.153 Pressure ulcer of sacral region, stage 3; L89.622 Pressure ulcer of left heel, stage 2; Z09 Encounter for follow-up examination after completed treatment for conditions other than malignant neoplasm | CPT/HCPCS: 11042; 11045; 97597; A6252; A6253 ==

== ENCOUNTER → 2023-03-13 08:22 | Outpatient (BNVA) | payer MEDICARE, MEDICAID, SELFPAY | PROVIDERS: PCP Family Medicine; Visit Provider Thoracic Surgery (Cardiothoracic Vascular Surgery) | DX: E11.52 Type 2 diabetes mellitus with diabetic peripheral angiopathy with gangrene (principal); L97.822 Non-pressure chronic ulcer of other part of left lower leg with fat layer exposed; L97.512 Non-pressure chronic ulcer of other part of right foot with fat layer exposed; L89.153 Pressure ulcer of sacral region, stage 3; L89.622 Pressure ulcer of left heel, stage 2 | CPT/HCPCS: 11042; 11045; 29581; 97597; A6197; A6251; A6253 ==

== ENCOUNTER → 2023-03-20 08:35 | Outpatient (BNVA) | payer MEDICARE, MEDICAID, SELFPAY | PROVIDERS: PCP Family Medicine; Visit Provider Nurse Practitioner Family | DX: E11.52 Type 2 diabetes mellitus with diabetic peripheral angiopathy with gangrene (principal); L97.822 Non-pressure chronic ulcer of other part of left lower leg with fat layer exposed; L89.622 Pressure ulcer of left heel, stage 2; L97.512 Non-pressure chronic ulcer of other part of right foot with fat layer exposed | CPT/HCPCS: 11042; 11045; A6197; A6252; A6253 ==

== ENCOUNTER → 2023-03-27 08:49 | Outpatient (BNVA) | payer MEDICARE, MEDICAID, SELFPAY | PROVIDERS: PCP Family Medicine; Visit Provider Thoracic Surgery (Cardiothoracic Vascular Surgery) | DX: E11.52 Type 2 diabetes mellitus with diabetic peripheral angiopathy with gangrene (principal); L97.822 Non-pressure chronic ulcer of other part of left lower leg with fat layer exposed; L97.512 Non-pressure chronic ulcer of other part of right foot with fat layer exposed; L89.622 Pressure ulcer of left heel, stage 2 | CPT/HCPCS: 11042; 11045; A6197; A6251; A6252; A6253 ==

== ENCOUNTER → 2023-04-03 09:48 | Outpatient (BNVA) | payer MEDICARE, MEDICAID, SELFPAY | PROVIDERS: PCP Family Medicine; Visit Provider Thoracic Surgery (Cardiothoracic Vascular Surgery) | DX: E11.52 Type 2 diabetes mellitus with diabetic peripheral angiopathy with gangrene (principal); L97.822 Non-pressure chronic ulcer of other part of left lower leg with fat layer exposed; L97.512 Non-pressure chronic ulcer of other part of right foot with fat layer exposed; L97.421 Non-pressure chronic ulcer of left heel and midfoot limited to breakdown of skin; L89.622 Pressure ulcer of left heel, stage 2 | CPT/HCPCS: 11042; 11045; 97597; A6251; A6252; A6253 ==

== ENCOUNTER → 2023-04-10 09:36 | Outpatient (BNVA) | payer MEDICARE, MEDICAID, SELFPAY | PROVIDERS: PCP Family Medicine; Visit Provider Thoracic Surgery (Cardiothoracic Vascular Surgery) | DX: E11.52 Type 2 diabetes mellitus with diabetic peripheral angiopathy with gangrene (principal); L97.822 Non-pressure chronic ulcer of other part of left lower leg with fat layer exposed; L97.512 Non-pressure chronic ulcer of other part of right foot with fat layer exposed; L97.421 Non-pressure chronic ulcer of left heel and midfoot limited to breakdown of skin; L89.622 Pressure ulcer of left heel, stage 2 | CPT/HCPCS: 11042; 11045; 97597; A6251; A6252; A6253 ==

== ENCOUNTER → 2023-04-17 08:39 | Outpatient (BNVA) | payer MEDICARE, MEDICAID, SELFPAY | PROVIDERS: PCP Family Medicine; Visit Provider Thoracic Surgery (Cardiothoracic Vascular Surgery) | DX: E11.52 Type 2 diabetes mellitus with diabetic peripheral angiopathy with gangrene (principal); E11.622 Type 2 diabetes mellitus with other skin ulcer; L97.822 Non-pressure chronic ulcer of other part of left lower leg with fat layer exposed; E11.621 Type 2 diabetes mellitus with foot ulcer; L97.422 Non-pressure chronic ulcer of left heel and midfoot with fat layer exposed; L97.511 Non-pressure chronic ulcer of other part of right foot limited to breakdown of skin; L97.421 Non-pressure chronic ulcer of left heel and midfoot limited to breakdown of skin | CPT/HCPCS: 11042; 11045; 97597; A6251; A6252; A6253 ==

== ENCOUNTER → 2023-04-24 07:57 | Outpatient (BNVA) | payer MEDICARE, SELFPAY | PROVIDERS: PCP Family Medicine; Visit Provider Nurse Practitioner Family | DX: E11.52 Type 2 diabetes mellitus with diabetic peripheral angiopathy with gangrene (principal); E11.622 Type 2 diabetes mellitus with other skin ulcer; L97.822 Non-pressure chronic ulcer of other part of left lower leg with fat layer exposed; E11.621 Type 2 diabetes mellitus with foot ulcer; L89.622 Pressure ulcer of left heel, stage 2; L97.512 Non-pressure chronic ulcer of other part of right foot with fat layer exposed; L97.422 Non-pressure chronic ulcer of left heel and midfoot with fat layer exposed; L89.892 Pressure ulcer of other site, stage 2 | CPT/HCPCS: 11042; 11045; A6252; A6253 ==

== ENCOUNTER → 2023-05-01 08:50 | Outpatient (BNVA) | payer MEDICARE, SELFPAY | PROVIDERS: PCP Family Medicine; Visit Provider Thoracic Surgery (Cardiothoracic Vascular Surgery) | DX: E11.52 Type 2 diabetes mellitus with diabetic peripheral angiopathy with gangrene (principal); E11.622 Type 2 diabetes mellitus with other skin ulcer; L97.821 Non-pressure chronic ulcer of other part of left lower leg limited to breakdown of skin; L89.622 Pressure ulcer of left heel, stage 2; E11.621 Type 2 diabetes mellitus with foot ulcer; L97.511 Non-pressure chronic ulcer of other part of right foot limited to breakdown of skin; L97.522 Non-pressure chronic ulcer of other part of left foot with fat layer exposed; Z09 Encounter for follow-up examination after completed treatment for conditions other than malignant neoplasm | CPT/HCPCS: 11042; 11045; 97597; 97598; A6251; A6252; A6253 ==

== ENCOUNTER 2023-05-03 10:38 | Emergency (ER) | payer MEDICARE, MEDICAID, SELFPAY ==
[2023-05-03 10:43] VITALS: BP 125/66; PULSE 55; RESP 24; TEMP 36.8; O2SAT 99
--- NOTE | 2023-05-03 10:51 | CT_ITS ---
WS: [id number] CT ABDOMEN PELVIS TECHNIQUE: Noncontrast CT of the abdomen and pelvis with coronal and sagittal reformatted images. CLINICAL INFORMATION: Flank Pain COMPARISON: CT 08/10/2022, 05/05/2022, and 02/01/2022 DLP: 1436.[address] scans at [facility] use at least one of these dose optimization techniques: automated e xposure control; mA and/or kV adjustment per patient size (includes targeted exams where dose is matc hed to clinical indication); or iterative reconstruction. FINDINGS: Bladder is decompressed with mild bladder wall thickening. Again seen is the small LEFT perianal absc ess with fistulous tract to the LEFT aspect of the bladder. This appears stable to slightly improved compared to several prior examinations. LEFT perianal fluid collection measures 2.7 x 2.9 cm in maxim um dimension Sinus tract extends adjacent to the bladder wall unchanged from previous. No new abscess or fistula. Air-fluid levels in the bladder. Hepatomegaly. Normal spleen. Normal GE junction. Fatty atrophy of the pancreas. Adrenal glands are normal. Renal cortical atrophy. No hydronephrosis. Prominent RIGHT extrarenal pelvis progressed tor red to previous with induration about the RIGHT greater than LEFT kidneys suspicious for pyelonephrit is. Normal caliber abdominal aorta. Wide mouth RIGHT lower abdominal hernia with herniation of small abram l loops. No obstruction. IMPRESSION: 1. LEFT perianal fistula tracks along the pelvis to the LEFT bladder wall with air-fluid levels in t he bladder. This is similar in appearance over multiple prior examinations dating back to 02/01/2022. 2. Fistulous tract is stable to slightly improved in appearance. No evidence of progression. 3. LEFT perianal fluid collection measures approximately 2.7 x 2.9 cm stable compared to previous. 4. Mild induration about both kidneys RIGHT greater than LEFT suspicious for pyelonephritis. Promine nt RIGHT extrarenal pelvis. No hydronephrosis. No obstructing renal or ureteral calculi. 5. Sludge in the gallbladder. 6. Hepatomegaly. 7. Nonobstructive [place] ventral abdominal wall hernia containing loops of decompressed bowel. Notified Roman Sharp MD at 05/03/2023 12:19 PM.
[2023-05-03 11:11] VITALS: RESP 20
[2023-05-03] MEDS: ondansetron 2 mg/ML SDV 2 mL 4 MG IVP (11:11)
[2023-05-03] MEDS: morphine 4 mg/mL SDV 1 mL IVP ×2 (11:11→12:15)
[2023-05-03] MEDS: sodium chloride 0.9% 1,000 ML 999 ML IV (11:11)
[2023-05-03 11:12] LABS: Basophils % 0.3 %; Eosinophils % 0.2 %; Hematocrit 30.3 % (37-53); Lymphocytes # 0.8 10^3/uL (0.8-4.8); Lymphocytes % 7.5 %; Mean Corpuscular Hemoglobin 27.5 pg (27-33); Mean Corpuscular Volume 91.5 fl (82-101); Mean Platelet Volume 8.3 fL (7.4-10.4); Monocytes # 0.7 10^3/uL (0.2-0.9); Monocytes % 7.1 %; Neutrophils # 8.51 10^3/uL (1.8-7.7); Neutrophils % 84.2 %; Nucleated Red Blood Cells % 0 %; Platelet Count 254 10^3/cmm (157-399); Red Blood Count 3.31 10^6/uL (3.85-5.65); Red Cell Distribution Width 15.9 % (12.1-15.1); White Blood Count 10.11 10^3/uL (3.29-11.43)
[2023-05-03 11:13] VITALS: BP 133/74; PULSE 64; O2SAT 98
[2023-05-03 11:18] LABS: Protein Urine 1+ (Negative); Urine Appearance Hazy (CLEAR); Urine Color Yellow (Yellow); pH Urine 7 (5-7)
--- NOTE | 2023-05-03 11:18 | PC.PHAR ---
pt states he takes care of his own medications-pt states he thinks he is taking lisinopril 5mg daily ext shows last filled 04/10/23 90d/s-pt states he is not taking omeprazole 40mg daily ext shows last filled 04/09/23 90d/s-notes are made in the pharmacy comments
[2023-05-03 11:19] LABS: Add Urine Microscopic? YES; Bilirubin Urine Neg (Negative); Blood Urine 3+ (Negative); Glucose Urine UA Norm (Normal); Ketones Urine Negative (Negative); Leukocyte Esterase Urine 2+ (Negative); Nitrate Urine Negative (Negative); Urobilinogen Urine Norm (Negative)
[2023-05-03 11:28] LABS: Bacteria Urine 1+ /hpf; RBC Urine 15-25 /hpf (0-2); Renal Epithelial Cells Urine RARE /hpf; Squamous Epithelial Cell Urine 0-4 /hpf (0-5); WBC Urine 80-100 /hpf (0-5)
[2023-05-03 11:28] LABS: Anion Gap 17.1 (5-19); Blood Urea Nitrogen 32 mg/dL (8-23); Calcium 9.1 mg/dL (8.5-10.5); Carbon Dioxide 26 mmol/L (22-29); Chloride 97 mmol/L (98-107); Glomerular Filtration Rate 38.1 mL/min (90-130); Glucose 197 mg/dL (65-115); Osmolality Calculated 292 mOsm/kg (285-295); Potassium 5.1 mmol/L (3.5-5.1); Sodium 135 mmol/L (136-145)
[2023-05-03 11:29] LABS: Add Urine Culture? Yes
[2023-05-03] MEDS: cefTRIAXone 1,000 MG in sodium chloride 0.9% (plus) 50 ML 100 MG IV (11:45)
[2023-05-03 12:15] VITALS: RESP 22; O2SAT 97
--- NOTE | 2023-05-03 12:26 | ED_ITS ---
HPI - Male Genitourinary General: Chief complaint: Urogenital-Male Stated complaint: Rt flank pain Time Seen by Provider: 05/03/23 10:44 History of Present Illness: This patient is a 67-year-old white male who presents to the emergency department complaint of right flank pain. Patient states the pain started this morning. He has noticed increased frequency of urination. He has noticed a milky discoloration of the urine for about 1 week now. He has not had a fever. Patient denies having a history of kidney stones. He does have a history of insulin-dependent diabetes and congestive heart failure. 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 This has been noticed on prior CT scans for about 1 year now. Patient is aware of the fistula. He states he has discussed repair of this with numerous surgeons and he has been told that it is inoperable. He has had multiple perirectal abscesses drained in the past. Review of Systems General: Reports: 10 or more systems reviewed and unremarkable except in HPI and below PFSH ED PFSH: Medical History Abscess, perirectal Acute kidney injury superimposed on chronic kidney disease MIRTA (acute kidney injury) Atrial fibrillation Atrial fibrillation Chest pain CHF (congestive heart failure) Chill Diabetes Fall Fever Generalized weakness Heart failure History of end stage renal disease History of osteomyelitis HTN (hypertension) Hx of chronic arthritis Hx of hyperlipidemia Hx of low back pain Hx of obesity Hx of sleep apnea Hx of type 2 diabetes mellitus Hypertension Iron deficiency anemia Morbid obesity Non-pressure chronic ulcer of other part of left foot with necrosis of bone Non-ST elevation CT (NSTEMI) Perirectal abscess Pulmonary embolism PVD (peripheral vascular disease) Sepsis Sleep apnea Surgical History History of hemicolectomy History of surgery on arm Social History Alcohol intake: never Substance/Drug Use: never Physical Exam Const: COMMON NORMALS: patient oriented x3 and no limitations GENERAL APPEARANCE: cooperative HENMT: COMMON NORMALS: normocephalic, atraumatic, Normal nasal mucous membranes and turbinates present, moist oral mucous membranes and oropharynx normal HEAD & SCALP: normal to inspection, normocephalic and atraumatic FACE & SINUS: normal facial exam NOSE: Normal nasal mucous membranes and turbinates present Eye: COMMON NORMALS: Equal, round and reactive pupils present, EOMs intact bilaterally and conjunctivae normal GENERAL EYE: appearance normal, both eyes and all related structures CONJUNCTIVA: Yes conjunctivae normal PUPIL: Yes Equal, round and reactive pupils present Neck/C-Spine: COMMON NORMALS: supple and no JVD Chest: COMMONS NORMALS: normal inspection of the chest Resp: COMMON NORMALS: normal respiratory effort and clear to auscultation bilaterally AUSCULTATION: clear to auscultation bilaterally Cardio: COMMON NORMALS: no JVD, regular rate, regular rhythm, No gallops present (Cardio), No murmurs present (Cardio) and No rub (Cardio) RATE: regular rate RHYTHM: regular rhythm GI: COMMON NORMALS: Soft to palpation and non-tender AUSCULTATION: Yes normoactive bowel sounds PALPATION: Yes Soft to palpation OTHER: Right sided ventral hernia which was soft and nontender. : OTHER: Right CVA tenderness. Back/Pelvis: COMMON NORMALS: thoracic and lumbar spine normal to inspection Extremity: COMMON NORMALS: normal to inspection Neuro: COMMON NORMALS: patient oriented x3 and CN's II-XII intact bilaterally Psych: COMMON NORMALS: mental status grossly normal, Normal thought process present and cooperative THOUGHT PROCESS: Normal thought process present Skin: COMMON NORMALS: no rashes or lesions noted, turgor normal and no jaundice GENERAL SKIN EXAM: no rashes or lesions noted and turgor normal Course Vital Signs: Vital signs: Vital Signs Temperature 98.2 F 05/03/23 10:43 Pulse Rate 64 05/03/23 11:13 Respiratory Rate 22 H 05/03/23 12:15 Blood Pressure 133/74 05/03/23 11:13 Pulse Oximetry 97 05/03/23 12:15 Oxygen Delivery Me thod Room Air 05/03/23 11:13 MDM - Male Medical Decision Making CBC revealed a normal white count, hemoglobin 9.1 which is chronic. BMP revealed a BUN of 32 creatinine of 1.8 which is chronic as well. Urine analysis is consistent with a urinary tract infection. CT scan of the abdomen pelvis was read by the radiologist. There are no kidney stones or ureteral stones. No obstruction of the ureters. 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 There is air in the bladder. There is stranding around the right kidney consistent with pyelonephritis. All of these results were discussed with the patient. He was given 1 g of Rocephin IV. He was given 2 doses of morphine along with IV fluids and Zofran. He is feeling better. He was discharged in stable condition with prescription for Ceftin and Percocet. Recommended he follow-up with his primary care provider in 1 week for recheck. Lab Data 05/03/23 10:58 05/03/23 10:58 Laboratory Results WBC 10.11 10^3/uL (3.29-11.43) 05/03/23 10:58 RBC 3.31 10^6/uL (3.85-5.65) L 05/03/23 10:58 Hgb 9.10 g/dL (11.27-16.99) L 05/03/23 10:58 Hct 30.3 % (37-53) L 05/03/23 10:58 MCV 91.5 fl (82-101) 05/03/23 10:58 MCH 27.5 pg (27-33) 05/03/23 10:58 MCHC 30.0 g/dL (30-55) 05/03/23 10:58 RDW 15.9 % (12.1-15.1) H 05/03/23 10:58 Plt Count 254 10^3/cmm (157-399) 05/03/23 10:58 MPV 8.3 fL (7.4-10.4) 05/03/23 10:58 Neut % (Auto) 84.2 % 05/03/23 10:58 Lymph % (Auto) 7.5 % 05/03/23 10:58 [place] % (Auto) 7.1 % 05/03/23 10:58 Eos % (Auto) 0.2 % 05/03/23 10:58 Baso % (Auto) 0.3 % 05/03/23 10:58 Neut # (Auto) 8.51 10^3/uL (1.8-7.7) H 05/03/23 10:58 Lymph # (Auto) 0.8 10^3/uL (0.8-4.8) 05/03/23 10:58 [place] # (Auto) 0.7 10^3/uL (0.2-0.9) 05/03/23 10:58 Eos # (Auto) 0.0 10^3/uL (0.0-0.8) 05/03/23 10:58 Baso # (Auto) 0.0 10^3/uL (0.0-0.1) 05/03/23 10:58 Nucleated RBC % (auto) 0 % 05/03/23 10:58 Nucleated RBCs # 0.0 /100WBC 05/03/23 10:58 Sodium 135 mmol/L (136-145) L 05/03/23 10:58 Potassium 5.1 mmol/L (3.5-5.1) 05/03/23 10:58 Chloride 97 mmol/L (98-107) L 05/03/23 10:58 Carbon Dioxide 26 mmol/L (22-29) 05/03/23 10:58 Anion Gap 17.1 (5-19) 05/03/23 10:58 BUN 32 mg/dL (8-23) H 05/03/23 10:58 Creatinine 1.8 mg/dL (0.7-1.2) H 05/03/23 10:58 GFR Calculation 38.1 mL/min (90-130) L 05/03/23 10:58 Glucose 197 mg/dL (65-115) H 05/03/23 10:58 Calculated Osmolality 292 mOsm/kg (285-295) 05/03/23 10:58 Calcium 9.1 mg/dL (8.5-10.5) 05/03/23 10:58 Urine Color Yellow (Yellow) 05/03/23 10:46 Urine Appearance Hazy (CLEAR) A 05/03/23 10:46 Urine pH 7 (5-7) 05/03/23 10:46 Ur Specific [place] 1.010 (1.005-1.030) 05/03/23 10:46 Urine Protein 1+ (Negative) H 05/03/23 10:46 Urine Glucose (UA) Norm (Normal) 05/03/23 10:46 Urine Ketones Negative (Negative) 05/03/23 10:46 Urine Blood 3+ (Negative) H 05/03/23 10:46 Urine Nitrate Negative (Negative) 05/03/23 10:46 Urine Bilirubin Neg (Negative) 05/03/23 10:46 Urine Urobilinogen Norm mg/dL (Negative) 05/03/23 10:46 Ur Leukocyte Esterase 2+ (Negative) H 05/03/23 10:46 Urine RBC 15-25 /hpf (0-2) H 05/03/23 10:46 Urine WBC 80-100 /hpf (0-5) H 05/03/23 10:46 Ur Squamous Epith Cells 0-4 /hpf (0-5) H 05/03/23 10:46 Ur Renal Epithelial Cell Rare /hpf 05/03/23 10:46 Amorphous Sediment Not Reportable 05/03/23 10:46 Urine Bacteria 1+ /hpf (NONE) H 05/03/23 10:46 Urine Mucus None /hpf 05/03/23 10:46 All radiology interpretation(s) finalized by discharge Discharge Plan Discharge Patient Disposition: Home Clinical Impression: Acute pyelonephritis, Fistula Condition: Stable Prescriptions: New cefuroxime axetil 500 mg tablet 500 mg PO BID 10 Days Qty: 20 0RF Percocet 5-325 mg tablet 1 tab PO Q4H PRN (Reason: pain) Qty: 30 0RF No Action gabapentin 300 mg capsule 900 mg PO BEDTIME@2100 insulin glargine [Lantus Solostar U-100 Insulin] 100 unit/mL (3 mL) insulin pen 70 unit SUBCUT BID Hold Instructions: Resume on 11/10/20. after PCP follow up Eliquis 5 mg tablet 5 mg PO BID Hold Instructions: Resume on 05/12/22. ferrous sulfate [iron] 325 mg (65 mg iron) Tablet 325 mg PO QAM sennosides-docusate sodium [Stimulant Laxative Plus] 8.6-50 mg tablet 1 tab PO BID PRN (Reason: Constipation) lisinopril 5 mg tablet 5 mg PO DAILY amiodarone 200 mg Tablet 200 mg PO QAM torsemide 20 mg tablet 20 mg PO DAILY PRN (Reason: Edema) levothyroxine [Euthyrox] 50 mcg tablet 50 mcg PO QAM metoprolol tartrate 25 mg tablet 25 mg PO QAM ondansetron 4 mg tablet,disintegrating 4 mg PO Q8H PRN (Reason: Nausea) acetaminophen [Tylenol Ex Str Rapid Release] 500 mg Tablet 1,000 mg PO Q6H PRN (Reason: Pain) Discharge Orders: Discharge ED (Routine); Ordered 05/03/23 Ordered By: Roman Sharp Referrals: Benjamin Cardenas [Primary Care Provider] - Patient Instructions: Opioid Safety, Pain Management Coding Level of Care Code ED [employer] for Deisi Vogt
== END 2023-05-03 16:24 | disposition home or self-care (01) ==
PROVIDERS: Emergency Provider Emergency Medicine; PCP Family Medicine
DX: N10 Acute pyelonephritis (principal); K60.3 Anal fistula; Z79.01 Long term (current) use of anticoagulants; Z79.4 Long term (current) use of insulin; E11.22 Type 2 diabetes mellitus with diabetic chronic kidney disease; I13.2 Hypertensive heart and chronic kidney disease with heart failure and with stage 5 chronic kidney disease, or end stage renal disease; I50.9 Heart failure, unspecified; N18.6 End stage renal disease; E78.5 Hyperlipidemia, unspecified; I25.2 Old myocardial infarction
CPT/HCPCS: 74176; 80048; 81001; 85025; 87077; 87086; 87186; 96361; 96365; 96375; 96376; 99284; J0696; J2270; J2405; J7030

== ENCOUNTER → 2023-05-08 08:33 | Outpatient (BNVA) | payer MEDICARE, MEDICAID, SELFPAY | PROVIDERS: PCP Family Medicine; Visit Provider Thoracic Surgery (Cardiothoracic Vascular Surgery) | DX: E11.52 Type 2 diabetes mellitus with diabetic peripheral angiopathy with gangrene (principal); E11.622 Type 2 diabetes mellitus with other skin ulcer; L97.821 Non-pressure chronic ulcer of other part of left lower leg limited to breakdown of skin; L89.622 Pressure ulcer of left heel, stage 2; E11.621 Type 2 diabetes mellitus with foot ulcer; L97.512 Non-pressure chronic ulcer of other part of right foot with fat layer exposed | CPT/HCPCS: 11042; 11045; 97597; 97598; A6252; A6253 ==

== ENCOUNTER → 2023-05-15 08:23 | Outpatient (BNVA) | payer MEDICARE, MEDICAID, SELFPAY | PROVIDERS: PCP Family Medicine; Visit Provider Thoracic Surgery (Cardiothoracic Vascular Surgery) | DX: E11.622 Type 2 diabetes mellitus with other skin ulcer (principal); L97.821 Non-pressure chronic ulcer of other part of left lower leg limited to breakdown of skin; L97.811 Non-pressure chronic ulcer of other part of right lower leg limited to breakdown of skin; L89.622 Pressure ulcer of left heel, stage 2; E11.621 Type 2 diabetes mellitus with foot ulcer; L97.512 Non-pressure chronic ulcer of other part of right foot with fat layer exposed; L97.421 Non-pressure chronic ulcer of left heel and midfoot limited to breakdown of skin | CPT/HCPCS: 11042; 11045; 97597; 97598; A6197; A6251; A6252 ==

== ENCOUNTER → 2023-05-22 09:04 | Outpatient (BNVA) | payer MEDICARE, MEDICAID, SELFPAY | PROVIDERS: PCP Family Medicine; Visit Provider Thoracic Surgery (Cardiothoracic Vascular Surgery) | DX: E11.622 Type 2 diabetes mellitus with other skin ulcer (principal); L97.821 Non-pressure chronic ulcer of other part of left lower leg limited to breakdown of skin; L97.811 Non-pressure chronic ulcer of other part of right lower leg limited to breakdown of skin; L89.622 Pressure ulcer of left heel, stage 2; E11.621 Type 2 diabetes mellitus with foot ulcer; L97.512 Non-pressure chronic ulcer of other part of right foot with fat layer exposed; L97.421 Non-pressure chronic ulcer of left heel and midfoot limited to breakdown of skin | CPT/HCPCS: 11042; 11045; 87070; 87176; 87205; 97597; A6251; A6252 ==

== ENCOUNTER → 2023-05-29 08:57 | Outpatient (BNVA) | payer MEDICARE, MEDICAID, SELFPAY | PROVIDERS: PCP Family Medicine; Visit Provider Nurse Practitioner Family | DX: E11.52 Type 2 diabetes mellitus with diabetic peripheral angiopathy with gangrene (principal); E11.622 Type 2 diabetes mellitus with other skin ulcer; L97.822 Non-pressure chronic ulcer of other part of left lower leg with fat layer exposed; L97.811 Non-pressure chronic ulcer of other part of right lower leg limited to breakdown of skin; L89.622 Pressure ulcer of left heel, stage 2; E11.621 Type 2 diabetes mellitus with foot ulcer; L97.512 Non-pressure chronic ulcer of other part of right foot with fat layer exposed; L97.422 Non-pressure chronic ulcer of left heel and midfoot with fat layer exposed | CPT/HCPCS: 11042; 11045; A6251; A6253 ==

== ENCOUNTER → 2023-06-05 08:32 | Outpatient (BNVA) | payer MEDICARE, MEDICAID, SELFPAY | PROVIDERS: PCP Family Medicine; Visit Provider Thoracic Surgery (Cardiothoracic Vascular Surgery) | DX: E11.52 Type 2 diabetes mellitus with diabetic peripheral angiopathy with gangrene (principal); E11.622 Type 2 diabetes mellitus with other skin ulcer; L97.822 Non-pressure chronic ulcer of other part of left lower leg with fat layer exposed; L97.811 Non-pressure chronic ulcer of other part of right lower leg limited to breakdown of skin; E11.621 Type 2 diabetes mellitus with foot ulcer; L97.422 Non-pressure chronic ulcer of left heel and midfoot with fat layer exposed; L97.512 Non-pressure chronic ulcer of other part of right foot with fat layer exposed; L97.421 Non-pressure chronic ulcer of left heel and midfoot limited to breakdown of skin | CPT/HCPCS: 11042; 11045; 97597; A6197; A6251; A6253 ==

== ENCOUNTER → 2023-06-12 08:52 | Outpatient (BNVA) | payer MEDICARE, MEDICAID, SELFPAY | PROVIDERS: PCP Family Medicine; Visit Provider Thoracic Surgery (Cardiothoracic Vascular Surgery) | DX: E11.52 Type 2 diabetes mellitus with diabetic peripheral angiopathy with gangrene (principal); E11.622 Type 2 diabetes mellitus with other skin ulcer; L97.822 Non-pressure chronic ulcer of other part of left lower leg with fat layer exposed; L97.812 Non-pressure chronic ulcer of other part of right lower leg with fat layer exposed; E11.621 Type 2 diabetes mellitus with foot ulcer; L97.422 Non-pressure chronic ulcer of left heel and midfoot with fat layer exposed; L97.512 Non-pressure chronic ulcer of other part of right foot with fat layer exposed | CPT/HCPCS: 29581; A6251; A6252 ==

== ENCOUNTER → 2023-06-19 08:46 | Outpatient (BNVA) | payer MEDICARE, MEDICAID, SELFPAY | PROVIDERS: PCP Family Medicine; Visit Provider Thoracic Surgery (Cardiothoracic Vascular Surgery) | DX: E11.52 Type 2 diabetes mellitus with diabetic peripheral angiopathy with gangrene (principal); E11.622 Type 2 diabetes mellitus with other skin ulcer; L97.821 Non-pressure chronic ulcer of other part of left lower leg limited to breakdown of skin; L97.811 Non-pressure chronic ulcer of other part of right lower leg limited to breakdown of skin; E11.621 Type 2 diabetes mellitus with foot ulcer; L89.622 Pressure ulcer of left heel, stage 2; L97.512 Non-pressure chronic ulcer of other part of right foot with fat layer exposed; L97.422 Non-pressure chronic ulcer of left heel and midfoot with fat layer exposed | CPT/HCPCS: 11042; 11045; 97597; 97598 ==

== ENCOUNTER → 2023-07-04 08:50 | Outpatient (BNVA) | payer MEDICARE, MEDICAID, SELFPAY | PROVIDERS: PCP Family Medicine; Visit Provider Nurse Practitioner Family | DX: E11.52 Type 2 diabetes mellitus with diabetic peripheral angiopathy with gangrene (principal); E11.622 Type 2 diabetes mellitus with other skin ulcer; E11.621 Type 2 diabetes mellitus with foot ulcer; L97.422 Non-pressure chronic ulcer of left heel and midfoot with fat layer exposed; L97.421 Non-pressure chronic ulcer of left heel and midfoot limited to breakdown of skin; L97.511 Non-pressure chronic ulcer of other part of right foot limited to breakdown of skin | CPT/HCPCS: 29581; A6251; A6252; A6253 ==

== ENCOUNTER → 2023-07-10 08:52 | Outpatient (BNVA) | payer MEDICARE, MEDICAID, SELFPAY | PROVIDERS: PCP Family Medicine; Visit Provider Thoracic Surgery (Cardiothoracic Vascular Surgery) | DX: E11.52 Type 2 diabetes mellitus with diabetic peripheral angiopathy with gangrene (principal); E11.622 Type 2 diabetes mellitus with other skin ulcer; L97.822 Non-pressure chronic ulcer of other part of left lower leg with fat layer exposed; I87.2 Venous insufficiency (chronic) (peripheral); L97.811 Non-pressure chronic ulcer of other part of right lower leg limited to breakdown of skin; E11.621 Type 2 diabetes mellitus with foot ulcer; L89.622 Pressure ulcer of left heel, stage 2; L97.412 Non-pressure chronic ulcer of right heel and midfoot with fat layer exposed; L97.421 Non-pressure chronic ulcer of left heel and midfoot limited to breakdown of skin | CPT/HCPCS: 11042; 11045; 97597; 97598; A6251; A6252; A6253 ==

== ENCOUNTER 2023-07-31 12:43 | Inpatient (IN) | payer MEDICARE, MEDICAID, SELFPAY ==
[2023-07-31 13:14] VITALS: BMI 63.4
[2023-07-31 13:15] VITALS: BP 159/69; PULSE 88; RESP 20; TEMP 36.8; O2SAT 96
--- NOTE | 2023-07-31 13:16 | P.HP_ITS ---
Providers/Chief Complaint 2 Admitting Physician: Colleen Clemente MD Primary Care Provider: Benjamin Cardenas Chief Complaint: pressure wounds History of Present Illness Kenney Olea is a 67 year old male who presented to wound care clinic on the day of admission for routine follow-up. He has been followed at wound care clinic for quite a long time for chronic pressure wounds to his lower extremities. Despite regular wound care, he has had worsening of the wounds to both the right foot and the left calf over the last couple of weeks. Multiple wounds have developed areas of necrosis. He underwent some debridement and wound care clinic but after evaluation it was felt he needed further intervention under anesthesia by podiatry. Wounds were measured, photographed and cultured in the wound care clinic. He has had general malaise, increased drainage from the wounds, pain that can be difficult to control at times. He has been taking oxycodone but does not feel like it does much. No report of any fevers. He is on chronic anticoagulation. No increase in bleeding recently. Has not had any GI symptoms, urinary symptoms, sore throat or difficulty breathing. His nose always runs a little bit. He has had a little bit of a productive cough. He has been using his CPAP regularly. Unsure of his home settings. Breathing is at his baseline. He has a longstanding abdominal wall hernia that is reducible. He has had a little bit more swelling in his lower extremities than usual. He Has a prescription for torsemide but does not take it regularly. After discussing management options with Dr. Williamson he agreed to be directly admitted to the hospital for further evaluation and appropriate intervention. He is willing to consider facility where he can receive ongoing wound care at discharge and felt necessary. He lives alone. Review of Systems 2 General: Reports: Other (ROS as per HPI or as otherwise noted here) Medications/Allergies Home Medications Medication Instructions Recorded Confirmed Last Taken Type apixaban 5 mg tablet (Eliquis) 2.5 mg PO BID 07/15/20 07/31/23 07/31/23 History gabapentin 300 mg capsule 900 mg PO BEDTIME 07/15/20 07/31/23 07/30/23 History insulin glargine 100 unit/mL (3 70 unit SUBCUT BID 07/15/20 07/31/23 07/31/23 History mL) subcutaneous pen (Lantus Solostar U-100 Insulin) ferrous sulfate 325 mg (65 mg 325 mg PO QAM 12/09/20 07/31/23 07/30/23 History iron) tablet amiodarone 200 mg tablet 200 mg PO QAM 12/24/21 07/31/23 07/31/23 History levothyroxine 50 mcg tablet 50 mcg PO QAM 05/05/22 07/31/23 07/31/23 History (Euthyrox) metoprolol tartrate 25 mg tablet 25 mg PO QAM 05/05/22 07/31/23 07/31/23 History acetaminophen 500 mg tablet 1,000 mg PO Q6H PRN Pain 08/10/22 07/31/23 Unknown History ondansetron 4 mg disintegrating 4 mg PO Q8H PRN Nausea 08/10/22 07/31/23 Unknown History tablet lisinopril 5 mg tablet 5 mg PO DAILY 05/03/23 07/31/23 07/31/23 History oxycodone-acetaminophen 5 mg-325 1 tab PO Q4H PRN pain #30 tabs 05/03/23 07/31/23 Unknown Rx mg tablet (Percocet) semaglutide 0.25 mg or 0.5 mg (2 0.25 mg SUBCUT Q7D 07/31/23 07/31/23 07/25/23 History mg/3 mL) subcutaneous pen injector (Ozempic) sildenafil 50 mg tablet 50 - 100 mg PO BID PRN Erectile 07/31/23 07/31/23 Unknown History Dysfunction Allergies Allergy/AdvReac Type Severity Reaction Status Date / Time vancomycin Allergy ALGY-Redness Verified 07/31/23 17:32 of Skin aspirin AdvReac Mild ADR-Vomitin Verified 07/31/23 15:45 g Victoza AdvReac Severe ADR-Vomitin Uncoded 07/31/23 15:24 g Additional Medication Information I verbally reviewed medications and allergy with the patient. He had multiple allergies for various pain medicines that cause constipation and sometimes nausea/vomiting. Also listed were several antibiotics with allergies including metronidazole, amoxicillin, cephalosporins. Patient denies allergies to any of these antibiotics today stating that the only antibiotic he has issues with his vancomycin which causes red man syndrome. He denies any other symptoms with vancomycin besides red skin. He said some medications will cramp his stomach but he can still take them if he needs to. PFSH Acute 2 PFSH: Medical History (Updated 07/31/23 @ 18:36 by Colleen Clemente MD) Hypothyroidism Erectile dysfunction Ventral hernia CKD (chronic kidney disease) Sleep apnea Osteoarthritis Iron deficiency anemia Diabetes Perirectal abscess Non-ST elevation [place] (NSTEMI) Pulmonary embolism History of osteomyelitis Hx of low back pain Hx of hyperlipidemia HTN (hypertension) CHF (congestive heart failure) Atrial fibrillation PVD (peripheral vascular disease) History of end stage renal disease Was on hemodialysis for a period of time a but was able to come off of routine hemodialysis treatment with stable renal function Morbid obesity Surgical History (Updated 07/31/23 @ 17:57 by Colleen Clemente MD) 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 Super morbidly obese. Normocephalic. Extraocular movements are intact. Slightly dry oral mucosa. Neck is large but supple. Lungs are clear to auscultation bilaterally without any rales with rhonchi or wheezes noted. Cardiovascular exam reveals a regular rate and rhythm. Abdomen is large but soft. There is a easily reducible ventral hernia below the umbilicus. 2+ edema is noted to both lower extremities. Chronic stasis changes are noted along with some sores in different stages of healing that are more superficial followed by more extensive wounds to the bottom of the right foot along with the heel and posterior calf of the left foot as shown below in pictures. There is also a wound on the lateral left foot. Wounds to both extremities are malodorous with necrotic features. Patient can move both feet but does have decreased sensation. Speech is clear, face symmetric. Data 07/31/23 13:51 01/29/24 13:51 Other Labs: No current labs A&P Assessment and plan (1) Pressure injury of right foot, stage 4: (2) Pressure injury of left foot, stage 4: (3) Pressure injury of left leg, stage 4: (4) Osteomyelitis: Chronic osteomyelitis of both lower extremities (right foot, left foot/calf) suspected, possibly with acute worsening of late (5) Chronic anticoagulation: On chronic anticoagulation with Eliquis, primary care provider has him on 2.5 mg twice daily due to renal function (6) Atrial fibrillation: Chronic longstanding atrial fibrillation managed with amiodarone and beta- blockade (7) CHF (congestive heart failure): CHF with preserved ejection fraction, last echocardiogram in 2021 was not able to visualize heart due to body habitus. Has torsemide as needed but does not often take it. On lisinopril chronically. (8) PVD (peripheral vascular disease): (9) HTN (hypertension): Primary hypertension with contributing secondary component (10) Diabetes mellitus, type II: Insulin requiring, with multiple complications including hyperglycemia, neuropathy, peripheral vascular disease, currently with evidence of osteomyelitis, also with known chronic kidney disease stage IIIb. (11) CKD (chronic kidney disease): Stage IIIb. Has a history of requiring dialysis transiently in the past (12) Anemia: Anemia of chronic kidney disease and chronic inflammation with iron deficiency (13) Hypothyroidism: Acquired, on chronic levothyroxine (14) Sleep apnea: Obstructive sleep apnea, on home CPAP (15) BMI 60.0-69.9, adult: Plan Inpatient admission Podiatry consultation with Dr. Zuluaga, I spoke with him Anticipate surgical debridement during hospital stay Wound cultures were collected at wound care clinic and are pending Will get blood cultures, ESR, CRP Empiric antibiotic coverage with vancomycin and Zosyn Plain films have been ordered of the distal lower extremities Deferring more advanced imaging until patient has been seen by Dr. Zuluaga Hold home Eliquis Subcu heparin x 1 dose this evening, will need to resume when appropriate after procedures Bariatric bed Continue home amiodarone and a lower dose of beta-blockade Continue home GEOVANI inhibitor Will give a dose of IV furosemide x 1 Sliding scale and long-acting insulin for diabetes along with consistent carbohydrate diet Continue home ferrous sulfate dosing Check TIBC Continue home levothyroxine CPAP with sleep VTE prophylaxis: Subcu heparin GI Prophylaxis: PPI Antibiotics: Vancomycin and Zosyn started 07/31/2023 Pending studies: Blood cultures collected 07/31/2023, wound cultures collected at wound care clinic 07/31/2023 Telemetry: not currently indicated Tracy: not currently indicated Line(s): peripheral IVs, depending on clinical course may need PICC line placement Disposition plan: Disposition will depend on clinical course but saying his wounds and progressive worsening despite outpatient management attempts, he may benefit from a period of time of more skilled care in a facility setting for ongoing wound care management as well as potential need for IV antibiotics. At the very least he will need resumption of home care and continued outpatient follow-up to wound care clinic. Code Status: Full Code Supportive care otherwise Findings, concerns and plans were discussed with patient and he was given an opportunity to ask questions Attestations 2 Medical Necessity Statement*: Anticipated stay greater than two midnights in this patient with multiple wounds that have worsened to the point of needing surgical debridement and initiation of antibiotics. He does have known likely chronic osteomyelitis but has had clinical change this month as described. Condition is complicated by comorbidities including diabetes, hypertension, CHF with preserved ejection fraction, chronic kidney disease, chronic anticoagulation, obesity, sleep apnea among other diagnoses. and High Time for a total of 80 minutes, includes reviewing past or interval history, examining/interviewing patient, placing orders, discussing plan of care with staff, communicating with other healthcare providers and documenting encounter Diagnoses Pressure injury of right foot, stage 4 L89.894 Pressure injury of left foot, stage 4 L89.894 Pressure injury of left leg, stage 4 L89.894 Osteomyelitis M86.9 Chronic anticoagulation Z79.01 Atrial fibrillation I48.91 CHF (congestive heart failure) I50.9 PVD (peripheral vascular disease) I73.9 HTN (hypertension) I10 Diabetes mellitus, type II E11.9 CKD (chronic kidney disease) N18.9 Anemia D64.9 Hypothyroidism E03.9 Sleep apnea G47.30 BMI 60.0-69.9, adult Z68.44
[2023-07-31 14:05] LABS: Basophils # 0.1 10^3/uL (0.0-0.1); Basophils % 0.6 %; Eosinophils # 0.2 10^3/uL (0.0-0.8); Eosinophils % 1.8 %; Hematocrit 27.5 % (37-53); Lymphocytes # 1.7 10^3/uL (0.8-4.8); Lymphocytes % 15.2 %; Mean Corpuscular HGB Conc 29.8 g/dL (30-55); Mean Corpuscular Volume 87.3 fl (82-101); Mean Platelet Volume 7.9 fL (7.4-10.4); Monocytes # 1.3 10^3/uL (0.2-0.9); Monocytes % 11.8 %; Neutrophils # 7.47 10^3/uL (1.8-7.7); Neutrophils % 69.1 %; Nucleated Red Blood Cells % 0 %; Platelet Count 368 10^3/cmm (157-399); Red Blood Count 3.15 10^6/uL (3.85-5.65); White Blood Count 10.82 10^3/uL (3.29-11.43)
--- NOTE | 2023-07-31 14:10 | XRR_ITS ---
PROCEDURE INFORMATION: Exam: XR Right Tibia and Fibula Exam date and time: 07/31/2023 2:30 PM Age: 67 years old Clinical indication: Other: Necrotic wounds foot TECHNIQUE: Imaging protocol: Radiologic exam of the right tibia and fibula. Views: 2 views. COMPARISON: CR XR foot RT 2V [id number] 07/31/2023 2:27 PM FINDINGS: Bones/joints: Soft tissue calcifications. No fracture or dislocation. No acute osseous or joint abnormality. Soft tissues: Normal. XR/XR tibia fibula RT 2V [id number] IMPRESSION: No acute findings.
--- NOTE | 2023-07-31 14:10 | XRR_ITS ---
PROCEDURE INFORMATION: Exam: XR Left Ankle Exam date and time: 07/31/2023 2:22 PM Age: 67 years old Clinical indication: Other: Necrotic wounds TECHNIQUE: Imaging protocol: Radiologic exam of the left ankle. Views: 1 or 2 views. COMPARISON: CR XR foot LT 2V [id number] 07/31/2023 2:22 PM FINDINGS: Bones/joints: Soft tissue swelling. Soft tissue calcifications likely due to venous stasis. No acute osseous, joint, or soft tissue abnormality. Calcaneal spurring. Amputation of a portion of the 5th metatarsal. Soft tissues: Normal. XR/XR ankle LT 2V [id number] IMPRESSION: No acute findings.
--- NOTE | 2023-07-31 14:10 | XRR_ITS ---
PROCEDURE INFORMATION: Exam: XR Left Tibia and Fibula Exam date and time: 07/31/2023 2:33 PM Age: 67 years old Clinical indication: Other: Necrotic wounds calf TECHNIQUE: Imaging protocol: Radiologic exam of the left tibia and fibula. Views: 2 views. COMPARISON: CR XR ankle LT 2V [id number] 07/31/2023 2:22 PM FINDINGS: Bones/joints: Soft tissue calcifications. Arterial calcifications. No acute osseous or joint abnormality. No evidence of osteomyelitis or fracture. Soft tissues: Normal. XR/XR tibia fibula LT 2V [id number] IMPRESSION: No acute findings.
--- NOTE | 2023-07-31 14:10 | XRR_ITS ---
PROCEDURE INFORMATION: Exam: XR Left Foot Exam date and time: 07/31/2023 2:22 PM Age: 67 years old Clinical indication: Other: Necrotic wounds heel and calf TECHNIQUE: Imaging protocol: Radiologic exam of the left foot. Views: 1 or 2 views. COMPARISON: CR XR foot LT min 3V* [id number] 09/28/2021 10:28 AM FINDINGS: Bones/joints: Amputation of a portion of the 5th metatarsal. Moderate osteopenia. Interphalangeal articular surface narrowing. No acute osseous or joint abnormality. Soft tissues: Arterial and other soft tissue calcifications. XR/XR foot LT 2V [id number] IMPRESSION: No acute findings.
--- NOTE | 2023-07-31 14:10 | XRR_ITS ---
PROCEDURE INFORMATION: Exam: XR Right Foot Exam date and time: 07/31/2023 2:27 PM Age: 67 years old Clinical indication: Other: Necrotic wounds bottom of foot TECHNIQUE: Imaging protocol: Radiologic exam of the right foot. Views: 1 or 2 views. COMPARISON: CT foot RT w con [id number] 08/10/2022 5:32 PM FINDINGS: Bones/joints: A station of the 5th toe at the level of the distal junctional 3rd of the 5th metatarsal. At the resection site the 5th metatarsal has a fragmented appearance and infection may be present. There is marked soft tissue swelling along the ventral foot and a large soft tissue defect along the plantar foot. Calcaneal spurring. Diffuse demineralization. Soft tissues: Normal. XR/XR foot RT 2V [id number] IMPRESSION: Marked soft tissue swelling. Possible osteomyelitis.
--- NOTE | 2023-07-31 14:10 | XRR_ITS ---
PROCEDURE INFORMATION: Exam: XR Right Ankle Exam date and time: 07/31/2023 2:26 PM Age: 67 years old Clinical indication: Other: Necrotic wounds TECHNIQUE: Imaging protocol: Radiologic exam of the right ankle. Views: 1 or 2 views. COMPARISON: CT foot RT w con [id number] 08/10/2022 5:32 PM FINDINGS: Bones/joints: Soft tissue calcifications likely due to venous stasis. No fracture or dislocation. No acute osseous or joint abnormality. Soft tissues: Soft tissue swelling particularly medially. XR/XR ankle RT 2V [id number] IMPRESSION: No acute osseous abnormality.
[2023-07-31 14:28] LABS: Alanine Aminotransferase 10 U/L (0-41); Albumin Level 3.3 g/dL (3.5-5.2); Alkaline Phosphatase 58 U/L (40-130); Anion Gap 15.4 (5-19); Aspartate Amino Transferase 10 U/L (0-40); Blood Urea Nitrogen 31 mg/dL (8-23); C Reactive Protein 110.7 mg/L (0.0-4.9); Carbon Dioxide 26 mmol/L (22-29); Chloride 100 mmol/L (98-107); Globulin 4.6 g/dL (1.3-4.6); Glomerular Filtration Rate 33.7 mL/min (90-130); Glucose 113 mg/dL (65-115); Magnesium 2.1 mg/dL (1.7-2.3); Osmolality Calculated 291 mOsm/kg (285-295); Phosphorus 3.5 mg/dL (2.5-4.5); Potassium 4.4 mmol/L (3.5-5.1); Sodium 137 mmol/L (136-145); Total Bilirubin 0.3 mg/dL (0.15-1.2); Total Protein 7.9 g/dL (6.6-8.7)
[2023-07-31 15:07] LABS: Erythrocyte Sedimentation Rate 56 mm/hr (0-10)
[2023-07-31 15:37] VITALS: RESP 16
[2023-07-31] MEDS: gabapentin 300 mg Capsule PO (15:37)
[2023-07-31] MEDS: oxyCODONE 5 mg IR Tab/Cap PO ×2 (15:37→21:45)
[2023-07-31 15:50] LABS: Estmated Average Glucose 189; Hemoglobin A1C 8.2 % (4.0-6.0)
[2023-07-31 16:16] VITALS: BP 160/64; PULSE 56; RESP 19; TEMP 36.7; O2SAT 96
[2023-07-31 16:44] LABS: Glucose Point of Care 104 mg/dL (70-110)
--- NOTE | 2023-07-31 17:09 | PM.CONSULT ---
Providers/Reason For Consult Consulting Physician/Specialty*: Lakshmi Rubin.P.M./podiatry Reason for Consult*: Bilateral lower extremity wounds Attending Physician: Colleen Clemente MD Primary Care Provider: Benjamin Cardenas History of Present Illness History of Present Illness Kenney Olea is a 67 year old male with history of chronic ulcerations to bilateral lower extremities. Right foot plantar ulcerations and left posterior heel and posterior leg ulcerations. He has been attending weekly wound care for months. Patient was unable to make his most recent appointments due to inclement weather. He was evaluated today 07/31/2023 and was noted to have significantly worsened wounds to bilateral lower extremities. He was prompted to come to the hospital for direct admission. Podiatry was consulted to provide further recommendations for treatment. Upon review of patient's chart he has undergone partial fifth ray resection of the right foot with partial fifth metatarsal amputation of the left foot. Patient does endorse feelings of general malaise. No other constitutional symptoms. Review of Systems General: Reports: 10 or more systems reviewed and unremarkable except in HPI and below Const: Denies: fever(s), chills, body aches or change in appetite Eyes: Denies: change in vision or blurry vision Card: Denies: chest pain, palpitations or irregular heart rhythm Resp: Denies: dyspnea GI: Denies: abdominal pain, nausea, vomiting or diarrhea Musc: Reports: joint stiffness Skin/Breast: Reports: non-healing lesions and lesions Neuro: Reports: numbness in extremities Medications/Allergies Home Medications Medication Instructions Recorded Confirmed Last Taken Type apixaban 5 mg tablet (Eliquis) 2.5 mg PO BID 07/15/20 07/31/23 07/31/23 History gabapentin 300 mg capsule 900 mg PO BEDTIME 07/15/20 07/31/23 07/30/23 History insulin glargine 100 unit/mL (3 70 unit SUBCUT BID 07/15/20 07/31/23 07/31/23 History mL) subcutaneous pen (Lantus Solostar U-100 Insulin) ferrous sulfate 325 mg (65 mg 325 mg PO QAM 12/09/20 07/31/23 07/30/23 History iron) tablet amiodarone 200 mg tablet 200 mg PO QAM 12/24/21 07/31/23 07/31/23 History levothyroxine 50 mcg tablet 50 mcg PO QAM 05/05/22 07/31/23 07/31/23 History (Euthyrox) metoprolol tartrate 25 mg tablet 25 mg PO QAM 05/05/22 07/31/23 07/31/23 History acetaminophen 500 mg tablet 1,000 mg PO Q6H PRN Pain 08/10/22 07/31/23 Unknown History ondansetron 4 mg disintegrating 4 mg PO Q8H PRN Nausea 08/10/22 07/31/23 Unknown History tablet lisinopril 5 mg tablet 5 mg PO DAILY 05/03/23 07/31/23 07/31/23 History oxycodone-acetaminophen 5 mg-325 1 tab PO Q4H PRN pain #30 tabs 05/03/23 07/31/23 Unknown Rx mg tablet (Percocet) semaglutide 0.25 mg or 0.5 mg (2 0.25 mg SUBCUT Q7D 07/31/23 07/31/23 07/25/23 History mg/3 mL) subcutaneous pen injector (Ozempic) sildenafil 50 mg tablet 50 - 100 mg PO BID PRN Erectile 07/31/23 07/31/23 Unknown History Dysfunction Allergies Allergy/AdvReac Type Severity Reaction Status Date / Time vancomycin Allergy ALGY-Redness Verified 07/31/23 17:32 of Skin aspirin AdvReac Mild ADR-Vomitin Verified 07/31/23 15:45 g Victoza AdvReac Severe ADR-Vomitin Uncoded 07/31/23 15:24 g Current Medications Generic Name Dose Route Start Last Admin Trade Name Freq PRN Reason Stop Dose Admin Gabapentin 300 mg 07/31/23 15:00 07/31/23 15:37 Gabapentin 300 Mg Capsule PO 300 mg TID CRUZ Administration Oxycodone HCl 5 mg 07/31/23 14:01 07/31/23 15:37 Oxycodone 5 Mg Ir Tab/Cap PO 5 mg Q6H PRN Administration SEVERE PAIN PFSH Acute PFSH: Medical History (Updated 07/31/23 @ 19:04 by Hayder Zuluaga DPM) Hypothyroidism Erectile dysfunction Ventral hernia CKD (chronic kidney disease) Sleep apnea Osteoarthritis Iron deficiency anemia Diabetes Perirectal abscess Non-ST elevation MA (NSTEMI) Pulmonary embolism History of osteomyelitis Hx of low back pain Hx of hyperlipidemia HTN (hypertension) CHF (congestive heart failure) Atrial fibrillation PVD (peripheral vascular disease) History of end stage renal disease Was on hemodialysis for a period of time a but was able to come off of routine hemodialysis treatment with stable renal function Morbid obesity Surgical History (Updated 07/31/23 @ 17:57 by Colleen Clemente MD) 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 History of incision and drainage for perirectal abscess, several times in 2021, developed sinus track History of hemicolectomy Due to diverticulitis History of surgery on arm Family History (Updated 07/31/23 @ 14:18 by Colleen Clemente MD) Denies family history of Anesthesia complication Social History (Updated 07/31/23 @ 13:17 by Colleen Clemente MD) Smoking and tobacco/nicotine status: never used tobacco/nicotine Alcohol intake: never Substance/Drug Use: never Vitals/I&O/Wt Last Vital Signs Temp 98.0 F 07/31/23 16:16 Pulse 56 L 07/31/23 16:16 Resp 19 H 07/31/23 16:16 BP 160/64 07/31/23 16:16 Pulse Ox 96 07/31/23 16:16 O2 Del Method Room Air 07/31/23 16:16 Weight last 48 hrs Weight 496 lb Weight 494 lb 6.4 oz Physical Exam Narrative: GENERAL: A&O x 3 VASCULAR: DP/PT pulses palpable 2/4 with CFT intact, <3seconds to distal digits DERMATOLOGICAL: Multiple full-thickness ulcerations to bilateral lower extremities. Right foot has necrotic full-thickness ulcerations to the plantar aspect of the foot with positive probe to bone and active purulence. Positive probe to fourth and fifth metatarsals. Multiple superficial excoriations and superficial stasis ulcerations to right leg. Full-thickness ulceration to plantar aspect of left heel with 100 send fibrotic base. Centralized portion of the wound is exposed calcaneus. 2 large full-thickness venous stasis ulcerations to posterior left calf with 100% fibrotic tissue. Bilateral lower extremity wounds are malodorous with active serous drainage and surrounding erythema MUSCULOSKELETAL: Partial fifth ray resection right foot. Tenderness with palpation of posterior left leg wound NEUROLOGICAL: Neurological sensation to the affected foot and ankle is absent to the level of the mid leg bilaterally IMAGING: Three-view x-rays bilateral ankles, 2 view x-rays bilateral feet show right foot partial fifth ray resection with osteomyelitis present at the resection site. Periosteal reaction to fourth metatarsal head consistent with osteomyelitis. No subcutaneous emphysema noted. Left foot shows partial fifth metatarsal resection. No subcutaneous emphysema noted. Data 07/31/23 13:51 07/31/23 13:51 A&P Assessment and plan (1) Ulcer of foot with necrosis of bone: (2) Venous stasis ulcer: (3) Diabetes mellitus, type II: (4) Edema: (5) Osteomyelitis: Plan -Multiple ulcerations to bilateral lower extremities. Clinical osteomyelitis to right foot fourth and fifth metatarsals and left calcaneus -Labs and vitals reviewed -WBC 10.8 -ESR 56 -CRP 110 -VSS -Cultures taken at wound care pending -Abx Vanco/Zosyn -Diet: N.p.o. at midnight for procedure tomorrow morning 08/01/2023 -Plan for incision bone cortex right foot with removal of necrotic tissue and bone, excisional debridement down to level of bone left heel with removal of nonviable tissue and bone as well as debridement of posterior leg wounds. Potential risks and complications of surgery were discussed with patient which include but not limited to worsening infection, amputation and -Pain Mgmt: Per primary -Weight bearing: Weightbearing as tolerated for transfers only -Dressings: Wet to dry dressings applied to bilateral lower extremities today 07/31/2023 -Continue current Abx therapy until ID and Sensitivity results -Trend labs -Discharge plan: Patient will likely need placement in SNF upon discharge from the hospital. Given clinical findings of osteomyelitis he will need PICC line placed and will require IV antibiotic therapy long-term. Lower extremity edema is driving force of patient's chronic ulcerations to the legs. Recommend Juzo compression wraps upon discharge if possible to help control edema. Further recommendation will be provided based on intraoperative findings -Podiatry will continue to round on patient daily and provide recommendations Coding Level of Care Code Acute Code for [facility] Fwd Diagnoses Ulcer of foot with necrosis of bone L97.504 Venous stasis ulcer I83.009; L97.909 Diabetes mellitus, type II E11.9 Edema R60.9 Osteomyelitis M86.9
[2023-07-31] MEDS: ferrous sulfate EC 325 mg Tablet PO (17:29)
[2023-07-31] MEDS: heparin 5,000 unit/mL INJ 1 mL 5000 UNIT SUBCUT (18:58)
[2023-07-31 20:00] VITALS: BP 151/71; PULSE 66; RESP 18; TEMP 37.2; O2SAT 94
--- NOTE | 2023-07-31 21:00 | SUR.PREOP ---
TIME OUT FOR MIDLINE INSERTION
[2023-07-31 21:45] VITALS: RESP 18
[2023-07-31] MEDS: vancomycin 2,000 MG/400 ML PIGGYBACK 200 MG IV (21:45)
[2023-07-31 21:53] LABS: Glucose Point of Care 134 mg/dL (70-110)
[2023-07-31] MEDS: gabapentin 300 mg Capsule 900 MG PO (22:33)
[2023-07-31] MEDS: metoprolol tartrate 25 mg Tablet 12.5 MG PO (22:33)
[2023-07-31] MEDS: FUROsemide 10 mg/mL SDV 10mL 60 MG IVP (22:35)
[2023-07-31] MEDS: insulin glargine 100 units/1 mL 20 UNIT SUBCUT (22:36)
[2023-08-01] VITALS (10 sets, daily range): BP systolic 104–161; BP diastolic 46–76; PULSE 56–71; RESP 16–20; TEMP 36.1–37.3; O2SAT 92–100; BMI 63.6
[2023-08-01] MEDS: piperacillin-tazobactam 3.375 GM in sodium chloride 0.9% (plus) 50 ML IV ×3 (00:27→17:02)
[2023-08-01 04:17] LABS: Basophils # 0.1 10^3/uL (0.0-0.1); Basophils % 0.6 %; Eosinophils # 0.2 10^3/uL (0.0-0.8); Eosinophils % 2.2 %; Hematocrit 27.5 % (37-53); Lymphocytes # 1.6 10^3/uL (0.8-4.8); Lymphocytes % 16.7 %; Mean Corpuscular HGB Conc 29.1 g/dL (30-55); Mean Corpuscular Hemoglobin 25.5 pg (27-33); Mean Corpuscular Volume 87.6 fl (82-101); Mean Platelet Volume 8.2 fL (7.4-10.4); Monocytes # 1.1 10^3/uL (0.2-0.9); Monocytes % 12.1 %; Neutrophils # 6.28 10^3/uL (1.8-7.7); Neutrophils % 66.7 %; Nucleated Red Blood Cells % 0 %; Platelet Count 395 10^3/cmm (157-399); Red Blood Count 3.14 10^6/uL (3.85-5.65); Red Cell Distribution Width 16.1 % (12.1-15.1); White Blood Count 9.42 10^3/uL (3.29-11.43)
[2023-08-01 04:39] LABS: Iron 30 ug/dL (59-158); Percent Saturation 14.1 % (20-50); Total Iron Binding Capacity 212 mcg/dl; Unsaturated Iron Binding 182 ug/dL (112-347)
[2023-08-01 04:41] LABS: Blood Urea Nitrogen 30 mg/dL (8-23); Calcium 8.8 mg/dL (8.5-10.5); Carbon Dioxide 28 mmol/L (22-29); Chloride 100 mmol/L (98-107); Glomerular Filtration Rate 33.7 mL/min (90-130); Glucose 102 mg/dL (65-115); Osmolality Calculated 294 mOsm/kg (285-295); Sodium 139 mmol/L (136-145)
[2023-08-01 04:43] LABS: Anion Gap 15.5 (5-19); Potassium 4.5 mmol/L (3.5-5.1)
[2023-08-01 06:32] LABS: Glucose Point of Care 120 mg/dL (70-110)
--- NOTE | 2023-08-01 06:45 | W.PM.OPSUD ---
Surgery/Procedure H&P Update DATE OF PROCEDURE: August 01, 2023 DATE H&P PERFORMED: 07/31/23 H&P UPDATE INFORMATION: I have reviewed H&P completed within last 30 days, I have examined patient prior to procedure, No changes to prior documentation and H&P is in [facility] E[facility] on date indicated PLANNED PROCEDURE: Operation Date: 08/01/23 07:00 Proposed Procedures p Wound Debridement bilateral extremities(Bilateral) - Hayder Zuluaga DPM
--- NOTE | 2023-08-01 06:57 | P.ANESASSM_ITS ---
Pre-Anesthetic Assessment Height/Weight: Height 1.88 m Weight 224.982 kg Temp Pulse Resp BP Pulse Ox O2 Del Method 98.9 F 56 L 16 153/76 96 CPAP 08/01/23 04:00 08/01/23 04:00 08/01/23 04:00 08/01/23 04:00 08/01/23 04:00 08/01/23 04:00 Operation Date: 08/01/23 07:00 Proposed Procedures p Wound Debridement bilateral extremities(Bilateral) - Hayder Zuluaga DPM Familial anesthetic complications: None Was Beta Parisa taken within 24 hours: Yes Was Clonidine taken within 24 hours: N/A Last intake: Intake Last Liquid Date 07/31/23 Last Liquid Time 23:55 Last Solid Date 07/31/23 Last Solid Time 18:30 Social No alcohol and No tobacco Exam alert, oriented x 3, clear to auscultation bilaterally and regular rate & rhythm Airway Mallampati: Class IV Dentition: chipped Pulmonary Sleep Apnea CV/HEM Atrial Fibrillation, Congestive Heart Failure, Hypertension and Peripheral Vascular Disease Chronic Renal Insufficiency Metabolic Diabetes Mellitus and Morbid Obesity Anesthetic Plan ASA status: 4 Anesthesia: MAC Risk of > 500 ml blood loss (7ml/kg in children): No Medications/Allergies Home Medications Medication Instructions Recorded Confirmed Last Taken Type apixaban 5 mg tablet (Eliquis) 2.5 mg PO BID 07/15/20 07/31/23 07/31/23 History gabapentin 300 mg capsule 900 mg PO BEDTIME 07/15/20 07/31/23 07/30/23 History insulin glargine 100 unit/mL (3 70 unit SUBCUT BID 07/15/20 07/31/23 07/31/23 History mL) subcutaneous pen (Lantus Solostar U-100 Insulin) ferrous sulfate 325 mg (65 mg 325 mg PO QAM 12/09/20 07/31/23 07/30/23 History iron) tablet amiodarone 200 mg tablet 200 mg PO QAM 12/24/21 07/31/23 07/31/23 History levothyroxine 50 mcg tablet 50 mcg PO QAM 05/05/22 07/31/23 07/31/23 History (Euthyrox) metoprolol tartrate 25 mg tablet 25 mg PO QAM 05/05/22 07/31/23 07/31/23 History acetaminophen 500 mg tablet 1,000 mg PO Q6H PRN Pain 08/10/22 07/31/23 Unknown History ondansetron 4 mg disintegrating 4 mg PO Q8H PRN Nausea 08/10/22 07/31/23 Unknown History tablet lisinopril 5 mg tablet 5 mg PO DAILY 05/03/23 07/31/23 07/31/23 History oxycodone-acetaminophen 5 mg-325 1 tab PO Q4H PRN pain #30 tabs 05/03/23 07/31/23 Unknown Rx mg tablet (Percocet) semaglutide 0.25 mg or 0.5 mg (2 0.25 mg SUBCUT Q7D 07/31/23 07/31/23 07/25/23 History mg/3 mL) subcutaneous pen injector (Ozempic) sildenafil 50 mg tablet 50 - 100 mg PO BID PRN Erectile 07/31/23 07/31/23 Unknown History Dysfunction Allergies Allergy/AdvReac Type Severity Reaction Status Date / Time vancomycin Allergy ALGY-Redness Verified 07/31/23 17:32 of Skin aspirin AdvReac Mild ADR-Vomitin Verified 07/31/23 15:45 g Victoza AdvReac Severe ADR-Vomitin Uncoded 07/31/23 15:24 g Current Medications Generic Name Dose Route Start Last Admin Trade Name Harpreetq PRN Reason Stop Dose Admin Ferrous Sulfate 325 mg 07/31/23 18:00 07/31/23 17:29 Ferrous Sulfate Ec 325 Mg Tablet PO 325 mg BIDWM CRUZ Administration Gabapentin 900 mg 07/31/23 21:00 07/31/23 22:33 Gabapentin 300 Mg Capsule PO 900 mg BEDTIME CRUZ Administration Piperacillin Sod/Tazobactam 50 mls @ 12.5 mls/hr 07/31/23 20:00 08/01/23 03:53 Sod 3.375 gm/ Sodium Chloride IV Infused Q8H CRUZ Infusion Protocol Vancomycin/PEG/NADA/Lysine/Water 2,000 mg in 400 mls @ 200 mls/hr 07/31/23 18:00 07/31/23 23:45 Vancocin IV Infused Q12H CRUZ Infusion Insulin Glargine 40 unit 07/31/23 20:00 07/31/23 22:02 Insulin Glargine 100 Units/1 Ml SUBCUT Not Given BID@ [facility] Insulin Human Lispro 0 unit 07/31/23 18:00 07/31/23 22:10 Insulin Lispro 100 Unit/1 Ml SUBCUT Not Given WM&BEDTIME [facility] Protocol Levothyroxine Sodium 50 mcg 08/01/23 06:00 08/01/23 03:53 Levothyroxine 50 Mcg Tablet PO Not Given QAM [facility] Metoprolol Tartrate 12.5 mg 07/31/23 21:00 07/31/23 22:33 Metoprolol Tartrate 25 Mg Tablet PO 12.5 mg BID@0900,2100 [facility] Administration Oxycodone HCl 5 mg 07/31/23 14:01 07/31/23 21:45 Oxycodone 5 Mg Ir Tab/Cap PO 5 mg Q6H PRN Administration SEVERE PAIN Additional Medication Information I verbally reviewed medications and allergy with the patient. He had multiple allergies for various pain medicines that cause constipation and sometimes nausea/vomiting. Also listed were several antibiotics with allergies including metronidazole, amoxicillin, cephalosporins. Patient denies allergies to any of these antibiotics today stating that the only antibiotic he has issues with his vancomycin which causes red man syndrome. He denies any other symptoms with vancomycin besides red skin. He said some medications will cramp his stomach but he can still take them if he needs to. [facility] Anesthesia Medical History (Updated 07/31/23 @ 19:04 by Hayder Zuluaga DPM) Hypothyroidism Erectile dysfunction Ventral hernia CKD (chronic kidney disease) Sleep apnea Osteoarthritis Iron deficiency anemia Diabetes Perirectal abscess Non-ST elevation PR (NSTEMI) Pulmonary embolism History of osteomyelitis Hx of low back pain Hx of hyperlipidemia HTN (hypertension) CHF (congestive heart failure) Atrial fibrillation PVD (peripheral vascular disease) History of end stage renal disease Was on hemodialysis for a period of time a but was able to come off of routine hemodialysis treatment with stable renal function Morbid obesity Surgical History (Updated 07/31/23 @ 17:57 by Colleen Clemente MD) 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 History of incision and drainage for perirectal abscess, several times in 2021, developed sinus track History of hemicolectomy Due to diverticulitis History of surgery on arm Family History (Updated 07/31/23 @ 14:18 by Colleen Clemente MD) Denies family history of Anesthesia complication Social History (Updated 07/31/23 @ 13:17 by Colleen Clemente MD) Smoking and tobacco/nicotine status: never used tobacco/nicotine Alcohol intake: never Substance/Drug Use: never Data Anesthesia 08/01/23 03:30 08/01/23 03:30 Short CBC 07/31/23 08/01/23 Range/Units 13:51 03:30 WBC 10.82 9.42 (3.29-11.43) 10^3/uL Hgb 8.20 L 8.00 L (11.27-16.99) g/dL Hct 27.5 L 27.5 L (37-53) % MCV 87.3 87.6 (82-101) fl Plt Count 368 395 (157-399) 10^3/cmm Neut % (Auto) 69.1 66.7 % Neut # (Auto) 7.47 6.28 (1.8-7.7) 10^3/uL BMP 07/31/23 08/01/23 13:51 03:30 Sodium 137 139 Potassium 4.4 4.5 Chloride 100 100 Carbon Dioxide 26 28 BUN 31 H 30 H Creatinine 2.0 H 2.0 H Glucose 113 102 Calcium 9.0 8.8 Liver Function 07/31/23 Range/Units 13:51 Total Bilirubin 0.3 (0.15-1.2) mg/dL AST 10 (0-40) U/L ALT 10 (0-41) U/L Alkaline Phosphatase 58 (40-130) U/L Albumin 3.3 L (3.5-5.2) g/dL Coags 07/31/23 13:51 ESR 56 H C-Reactive Protein 110.7 H Cardiac Studies: 2 Echocardiogram Ultrasound 02/04/22
[2023-08-01] MEDS: sodium chloride 0.9% 1,000 ML 30 ML IV (06:58)
[2023-08-01] MEDS: BUPivacaine 0.5% INJ 30 mL INJECTION (07:57)
--- NOTE | 2023-08-01 08:02 | W.PM.BPON ---
Date of procedure: 08/01/2023 Surgeon name: Dr. Hayder Zuluaga D.P.M. Cream Maker(s) name(s): Kayce Procedure(s) performed: Incision bone cortex right foot with removal nonviable tissue and bone, excisional debridement down to level of bone left heel. Excisional debridement down to level of fascia left posterior leg Description of findings: Osteomyelitis right fourth and fifth metatarsals, osteomyelitis left posterior calcaneus Estimated blood loss: 15 cc Tourniquet time: No tourniquet used Specimen(s) removed: Bone right foot sent as specimen and culture, soft tissue left posterior heel sent as soft tissue culture Post-operative diagnosis: Venous stasis ulceration, decubitus heel ulceration left, neuropathic ulceration plantar aspect right foot with osteomyelitis right foot fourth and fifth metatarsals and left posterior calcaneus
--- NOTE | 2023-08-01 08:04 | P.OP_ITS ---
Operative Report Date of procedure: August 01, 2023 Pre-op diagnosis: Osteomyelitis, neuropathic ulcer right foot with necrosis of bone, Stage 4 decubitus heel ulcer left foot. Venous stasis ulceration posterior left leg Post-op diagnosis: same Post-op findings: Osteomyelitic changes to posterior left calcaneus as well as to 4th and 5th metatarsals right foot Procedure done: 1. Incision bone cortex right foot CPT 00991 2. Excisional debridement left heel wound down to level of bone CPT 18487 3. Excisional debridement left posterior leg wounds down to level of deep fascia CPT 45839 Surgeon: Hayder Zuluaga DPM Supervisor [employer]: Kayce Estimated blood loss: 15cc Complications: None Findings: See above Procedure: Patient is a 67-year-old male that has a history of chronic neuropathic ulceration to plantar aspect right foot with bone exposed, stage IV decubitus heel ulcer left heel with venous stasis ulcerations to plantar aspect of left leg. Patient missed recent wound care appointments and wounds rapidly degraded. He was sent to the hospital for direct admission and for evaluation by podiatry for surgical debridement. A lengthy discussion regarding the procedure, including risks and complications has been had with the patient and is noted in the recent clinic note. Written and verbal consent have been obtained. All patient questions have been answered to the patient?s satisfaction. No written or verbal guarantees have been given or implied. The patient has been NPO since midnight. The history has been reviewed and the history and physical is current. The signed consent was confirmed and placed in the patient chart. Patient imaging has been reviewed and is consistent with the diagnosis. Under mild sedation, the patient was brought into the operating room and left on the hospital bed in the supine position. Patient is receiving IV antibiotics [id number] on the floor. IV local field block was then performed bilaterally using 0.5% Marcaine plain. Sedation was then performed by the anesthesiateam. Bilateral extremities were then prepped using Betadine paint scrub before being draped in standard fashion. Attention was directed to the plantar aspect of right foot where 2 large full- thickness ulcerations with fibrotic tissue were visualized. A rongeur was used to remove devitalized and necrotic tissue of the wound. A #15 blade was used to make a full-thickness incision down to the level of metatarsal. After exposing the metatarsal and osteotome was used to remove the portion of exposed metatarsal from the wound. This was fourth metatarsal. The wound was evaluated and the fifth metatarsal was exposed and was noted to be discolored and degenerative. this was removed using a rongeur and passed from the operative field to be sent as specimen. The remaining fourth metatarsal appeared viable i n comparison to that which was removed. 15 blade was used to remove necrotic margins of the wound. Deep tissue was taken using a rongeur and sent as specimen for culture. Site was then irrigated with sterile saline via pulse lavage. Hemostasis was achieved through electrocautery and Kisha. The wound was packed with Betadine wet-to-dry. Attention was then directed to the posterior aspect of the left leg where 2 large venous stasis ulcerations were noted on the posterior aspect of the left calf. Using curette, excisional debridement was carried down to the level of fascia. The remaining tissue appeared healthy and viable. Attention was then directed to the posterior aspect of the left heel at the stage IV decubitus ulceration. Calcaneus was noted to be exposed at the base of the wound. This was surrounded by fibrotic tissue and slough. A rongeur and 15 blade were used to remove the slough which was passed from the operative field to be sent as deep tissue culture. The remaining fibrotic tissue was then removed using a curette. Excisional debridement was carried down to the level of bone. The posterior aspect of calcaneus was noted to have changes consistent with osteomyelitis. The posterior left leg and heel were dressed with Xeroform, 4 x 4 gauze, ABD pads, Kerlix, Coban. The wound was dressed with Betadine wet-to-dry, ABD pads, Kerlix, Coban. The patient tolerated the procedure and anesthesia well and without complication. The patient was transported from the operating room to the recovery room with vital signs stable and vascular status intact to all digits of bilateral feet. Thepatient was instructed to remain nonweightbearing to the operative extremity except for transfers, to keep surgical dressing clean, dry and intact. The patient will be transferred back to the floor once anesthesia criteria is met. I will continue to round on and follow the patient in the inpatientsetting and provide recommendations to stabilize the patient for discharge. Based on intraoperative findings, patient has chronic osteomyelitis. Recommend PICC line with IV antibiotics long-term.
--- NOTE | 2023-08-01 08:25 | ANE.PACU2 ---
Inpatient post-anesthesia follow up: Airway intact: Yes Vital signs: Temperature 97 F Pulse Rate 57 Respiratory Rate 16 Blood Pressure 105/51 Pulse Oximetry 92 Oxygen Delivery Me thod Room Air Oxygen Flow Rate Fraction of Inspir ed Oxygen Hydration adequate: Yes Nausea and vomiting: No Pain level: 1 Mental status: Baseline
[2023-08-01] MEDS: pantoprazole DR 40 mg Tablet PO (08:53)
[2023-08-01] MEDS: amiodarone 200 mg Tablet PO (08:53)
[2023-08-01] MEDS: lisinopril 5 mg Tablet PO (08:53)
[2023-08-01] MEDS: metoprolol tartrate 25 mg Tablet 12.5 MG PO ×2 (09:02→20:30)
--- NOTE | 2023-08-01 10:02 | PC.CHAP ---
Pastoral Care Encounter/Spiritual Assessment Type of Contact [] Declined social media job titles visit [] Patient/Family/Request visit [] Outpatient visit [] Follow-up visit [] Physician referral [] Code/Alert [x] Routine visit [] Staff referral [] Actively dying [] Patient sleeping [] Family support [] [] Out of room [] Palliative care [] [] Receiving care in room [] Pre-surgical visit [] Trauma [] Long length of stay [] ICU visit [] Other: Relational/Emotional Strength [x] Patient feels connected with others/family/visitors/staff [] Distress [] Loneliness/isolation [] Abandonment Spirituality of Patient [x] Person of Haley [] Attends Shinto of their Haley [x] Believes in Prayer [] Reads Bible or Jainism materials [] There are Spiritual issues to be addressed Social Welfare Research Worker Interventions [x] Prayer [x] Active listening [] Non-anxious presence [x] Spiritual/emotional support [] Crisis/trauma care [] Spiritual counseling [] Bereavement support [] Provided bereavement packet [] Provided Bible/devotional materials [] Provided toy/stuffed animal, coloring book to patient or family member [] Provided Communion [] Anointing/Amelia [] Salvation [x] Completed spiritual assessment [] Other: Impact on Illness or Injury [] Angry [] Fearful [] Anxious [] Often cries [] Exhaustion [] Unable to work [] Unable to attend anglican [] Unable to walk/stand [] Unable to read [] Unable to drive [] Unable to eat/drink [] Unable to sleep [] Unable to be with family [] Patient intubated [] Other: Summary Time spent with patient 10 min
[2023-08-01] MEDS: vancomycin 2,000 MG/400 ML PIGGYBACK 200 MG IV (11:05)
[2023-08-01] MEDS: oxyCODONE 5 mg IR Tab/Cap PO (11:11)
[2023-08-01 11:16] LABS: Glucose Point of Care 124 mg/dL (70-110)
--- NOTE | 2023-08-01 13:06 | P.PN_ITS ---
Subjective 2 Subjective: Returned from debridement, states he is doing well. No trouble breathing. No chest pain or pressure. Vitals/I&O/Wt Last Vital Signs Temp 97.5 F L 08/01/23 12:00 Pulse 57 L 08/01/23 12:00 Resp 19 H 08/01/23 12:00 BP 126/46 08/01/23 12:00 Pulse Ox 100 08/01/23 12:00 O2 Del Method Room Air 08/01/23 12:00 07/31/23 08/01/23 08/01/23 22:59 06:59 14:59 Intake Total 480 / 480 450 / 930 0 / 0 Output Total 450 / 450 1100 / 1550 15 / 15 Balance -650 / -620 - -15 Weight last 48 hrs Weight 224.982 kg Weight 224.982 kg Weight 224.256 kg Physical Exam 2 Narrative: Accompanied by family. Const: COMMON NORMALS: patient oriented x3 and alert GENERAL APPEARANCE: c ooperative NUTRITIONAL APPEARANCE: obese morbidly obese O RIENTATION/CONSCIOUSNESS: Yes awake HENMT: COMMON NORMALS: oropharynx normal Neck/C-Spine: COMMON NORMALS: no JVD Resp: COMMON NORMALS: normal respiratory effort and clear to auscultation bilaterally AUSCULTATION: clear to auscultation bilaterally Cardio: COMMON NORMALS: no JVD, regular rhythm, S1 normal heart sound present, S2 normal heart sound present and No murmurs present (Cardio) RHYTHM: regular rhythm HEART SOUNDS: S1 normal heart sound present and S2 normal heart sound present GI: COMMON NORMALS: Normal to inspection, nondistended, normoactive bowel sounds present, Soft to palpation and non-tender PALPATION: Yes Soft to palpation Extremity: COMMON NORMALS: no joint enlargement and no pedal edema N ARRATIVE EXTREMITY EXAM: Lower extremities with possibly trace edema, wrapped in postoperative dressing below the knees.No bleeding or strikethrough at this time. Neuro: COMMON NORMALS: patient oriented x3 and moves all extremities S ENSORIUM/ORIENTATION: Yes alert Data 08/01/23 03:30 08/01/23 03:30 A&P Assessment and plan (1) Osteomyelitis: Discussed with patient, bone biopsy has been collected during debridement. Follow-up culture. For now continue empiric tabetic coverage. Discussed exchanging midline to PICC line. Requested. Discussed with case packer and sealer. Will need complete 6 weeks of antibiotics. Reviewed podiatry note. Stop IV fluid. Continues on Vanco and Zosyn at this time. Risk of renal dysfunction with antibiotic combination. Reassess kidney function. Discussed with vacuum cleaner repairer, okay to resume Eliquis at current time. (2) Pressure injury of right foot, stage 4: Status post debridement bilateral lower extremity wounds. Continue postsurgical care. Continue empiric antibiotics as above. Will request RD consultation. Reviewed vitals, CBC, noted anemia, hemoglobin 8. Reassess blood count at risk of anemia. Reviewed CMP. (3) Pressure injury of left foot, stage 4: (4) Pressure injury of left leg, stage 4: (5) Chronic anticoagulation: On chronic anticoagulation with Eliquis, primary care provider has him on 2.5 mg twice daily due to renal function (6) Atrial fibrillation: Chronic longstanding atrial fibrillation managed with amiodarone and beta- blockade Reviewed potassium,Magnesium. (7) CHF (congestive heart failure): CHF with preserved ejection fraction, last echocardiogram in 2021 was not able to visualize heart due to body habitus. Has torsemide as needed but does not often take it. On lisinopril chronically. (8) PVD (peripheral vascular disease): (9) HTN (hypertension): Primary hypertension with contributing secondary component (10) Diabetes mellitus, type II: Insulin requiring, with multiple complications including hyperglycemia, neuropathy, peripheral vascular disease, currently with evidence of osteomyelitis, also with known chronic kidney disease stage IIIb. (11) CKD (chronic kidney disease): Stage IIIb. Has a history of requiring dialysis transiently in the past (12) Anemia: Reviewed CBC, no anemia, reviewed iron studies, noted iron deficiency. On iron sulfate. Anemia of chronic kidney disease and chronic inflammation with iron deficiency (13) Hypothyroidism: Acquired, on chronic levothyroxine (14) Sleep apnea: Obstructive sleep apnea, on home CPAP (15) BMI 60.0-69.9, adult: Plan Sliding scale and long-acting insulin for diabetes along with consistent carbohydrate diet Continue home ferrous sulfate dosing Continue home levothyroxine CPAP with sleep Antibiotics: Vancomycin and Zosyn started 07/31/2023 Disposition plan: Disposition will depend on clinical course but saying his wounds and progressive worsening despite outpatient management attempts, he may benefit from a period of time of more skilled care in a facility setting for ongoing wound care management as well as potential need for IV antibiotics. At the very least he will need resumption of home care and continued outpatient follow-up to wound care clinic. Attestations 2 Medical Necessity Statement*: Continue admission for assessment of management of extensive lower extremity wounds, status post debridement, osteomyelitis requiring further treatment, pending cultures, planning and arrangements for IV antibiotic regimen after discharge. Diagnoses Osteomyelitis M86.9 Pressure injury of right foot, stage 4 L89.894 Pressure injury of left foot, stage 4 L89.894 Pressure injury of left leg, stage 4 L89.894 Chronic anticoagulation Z79.01 Atrial fibrillation I48.91 CHF (congestive heart failure) I50.9 PVD (peripheral vascular disease) I73.9 HTN (hypertension) I10 Diabetes mellitus, type II E11.9 CKD (chronic kidney disease) N18.9 Anemia D64.9 Hypothyroidism E03.9 Sleep apnea G47.30 BMI 60.0-69.9, adult Z68.44
--- NOTE | 2023-08-01 13:31 | XR_ITS ---
WS: [id number] PORTABLE CHEST HISTORY: PICC line exchange COMPARISON: 02/01/2022 Left-sided PICC line in good position with tip in the mid to distal SVC. Atelectasis at the LEFT lung base. No pleural effusion or pneumothorax. Cardiac size: Normal. Mediastinum/Aorta: Normal mediastinum. No osseous abnormality seen. IMPRESSION: Satisfactory placement left-sided PICC line.
[2023-08-01] MEDS: apixaban 5 mg Tablet 2.5 MG PO ×2 (14:06→20:30)
--- NOTE | 2023-08-01 14:40 | PC.NURSE ---
Single lumen PICC placed to left brachial vein. Referred to vascular access nurse for IV antibiotics x 6 weeks. Midline placed yesterday due to poor access. Midline left in place to right arm for additional access. Risks and benefits discussed and informed consent obtained from patient. Left arm assessed with left brachial vein measuring 4 mm, straight, and apparent best choice for placement. Using sterile technique and MST, left brachial vein accessed x 1 stick. Mid-arm circumference measured 10 cm from left AC 39 cm. Trimmed cath 55 cm with 0 cm external length noted. Line secured with stat-lock. Insertion site covered with Biopatch and TSM. CXR shows tip in SVC, in good position for use per radiologist. Report given to bedside nurse, Leny.
[2023-08-01 16:28] LABS: Glucose Point of Care 191 mg/dL (70-110)
[2023-08-01] MEDS: insulin lispro 100 unit/1 mL SUBCUT ×2 (17:03→21:37)
[2023-08-01] MEDS: ferrous sulfate EC 325 mg Tablet PO (17:03)
[2023-08-01] MEDS: gabapentin 300 mg Capsule 900 MG PO (20:30)
[2023-08-01 21:25] LABS: Glucose Point of Care 196 mg/dL (70-110)
[2023-08-01] MEDS: insulin glargine 100 units/1 mL 40 UNIT SUBCUT (21:37)
--- NOTE | 2023-08-01 22:00 | PC.NURSE ---
called pharmacy about vancomycin being on the allergery list and what rate to run it at. Adjustments were made by pharmacy.
[2023-08-01] MEDS: vancomycin 2,000 MG/400 ML PIGGYBACK 150 MG IV (22:18)
[2023-08-02] VITALS (9 sets, daily range): BP systolic 119–134; BP diastolic 56–68; PULSE 51–81; RESP 16–18; TEMP 36.3–37.3; O2SAT 92–98
[2023-08-02] MEDS: piperacillin-tazobactam 3.375 GM in sodium chloride 0.9% (plus) 50 ML IV ×3 (00:12→17:26)
[2023-08-02] MEDS: levothyroxine 50 mcg Tablet PO (05:54)
--- NOTE | 2023-08-02 06:27 | P.PN_ITS ---
Subjective 2 Subjective: Patient seen at bedside this morning. Resting comfortably. Pain is well- controlled. No overnight events. Vitals/I&O/Wt Last Vital Signs Temp 98.1 F 08/02/23 04:00 Pulse 58 L 08/02/23 04:00 Resp 16 08/02/23 04:00 BP 120/58 08/02/23 04:00 Pulse Ox 95 08/02/23 04:00 O2 Del Method Room Air 08/02/23 04:00 08/01/23 08/01/23 08/02/23 14:59 22:59 06:59 Intake Total 1140.5 / 1140.5 530 / 1670.5 810 / 2480.5 Output Total 565 / 565 900 / 1465 Balance 575.5 / 575.5 -370 / 205.5 810 / 1015.5 Weight last 48 hrs Weight 509 lb Weight 496 lb Weight 496 lb Weight 494 lb 6.4 oz Physical Exam 2 Narrative: GENERAL: A&O x 3 VASCULAR: DP/PT pulses palpable 2/4 with CFT intact, <3seconds to distal digits DERMATOLOGICAL: Surgical dressing intact bilaterally, clean and dry. No strikethrough noted. MUSCULOSKELETAL: Partial fifth ray resection right foot. Tenderness with palpation of posterior left leg wound NEUROLOGICAL: Neurological sensation to the affected foot and ankle is absent to the level of the mid leg bilaterally IMAGING: Three-view x-rays bilateral ankles, 2 view x-rays bilateral feet show right foot partial fifth ray resection with osteomyelitis present at the resection site. Periosteal reaction to fourth metatarsal head consistent with osteomyelitis. No subcutaneous emphysema noted. Left foot shows partial fifth metatarsal resection. No subcutaneous emphysema noted. Data 08/01/23 03:30 08/01/23 03:30 Micro: Microbiology 08/01/23 07:50 Gram Stain - Final Bone 08/01/23 07:55 Gram Stain - Final Foot - #1 A&P Assessment and plan (1) Ulcer of foot with necrosis of bone: (2) Venous stasis ulcer: (3) Diabetes mellitus, type II: (4) Edema: (5) Osteomyelitis: Plan -Multiple ulcerations to bilateral lower extremities. Clinical osteomyelitis to right foot fourth and fifth metatarsals and left calcaneus -Labs and vitals reviewed -WBC 9.4 -ESR 56 -CRP 110 -VSS -Cultures: Gram-negative rods -Abx Vanco/Zosyn -Diet: Okay for diet from podiatry standpoint -Status post bilateral lower extremity wound debridement (08/01/2023) -No further surgical intervention by podiatry during this admission -Pain Mgmt: Per primary -Weight bearing: Weightbearing as tolerated for transfers only -Dressings: Left leg and heel wound to be dressed daily using Santyl, Adaptic, 4 x 4 gauze, Kerlix, Mike compression to the level of the knee. Right foot dressing to be changed twice daily with Betadine wet-to-dry. I will help perform dressing changes today 08/02/2023 at noon -Continue current Abx therapy until ID and Sensitivity results -Trend labs -Discharge plan: Patient will likely need placement in SNF upon discharge from the hospital. Given clinical findings of osteomyelitis he will need PICC line placed and will require IV antibiotic therapy long-term. Lower extremity edema is driving force of patient's chronic ulcerations to the legs. Recommend Juzo compression wraps upon discharge if possible to help control edema. Further recommendation will be provided based on intraoperative findings -Podiatry will continue to round on patient daily and provide recommendations Attestations 2 Medical Necessity Statement*: Clinical osteomyelitis, requiring PICC line placement. Patient would also benefit from SNF placement Coding Level of Care Code Acute Code for [facility] Diagnoses Ulcer of foot with necrosis of bone L97.504 Venous stasis ulcer I83.009; L97.909 Diabetes mellitus, type II E11.9 Edema R60.9 Osteomyelitis M86.9
[2023-08-02 06:34] LABS: Glucose Point of Care 180 mg/dL (70-110)
[2023-08-02] MEDS: lisinopril 5 mg Tablet PO (08:21)
[2023-08-02] MEDS: insulin glargine 100 units/1 mL 40 UNIT SUBCUT ×2 (08:21→21:43)
[2023-08-02] MEDS: amiodarone 200 mg Tablet PO (08:21)
[2023-08-02] MEDS: insulin lispro 100 unit/1 mL SUBCUT ×4 (08:21→21:43)
[2023-08-02] MEDS: ferrous sulfate EC 325 mg Tablet PO ×2 (08:22→17:26)
[2023-08-02] MEDS: pantoprazole DR 40 mg Tablet PO (08:22)
[2023-08-02] MEDS: apixaban 5 mg Tablet 2.5 MG PO ×2 (08:22→21:00)
[2023-08-02] MEDS: metoprolol tartrate 25 mg Tablet 12.5 MG PO (08:22)
[2023-08-02 09:07] LABS: Basophils % 0.2 %; Eosinophils # 0.4 10^3/uL (0.0-0.8); Hematocrit 27.3 % (37-53); Lymphocytes # 0.9 10^3/uL (0.8-4.8); Lymphocytes % 7.2 %; Mean Corpuscular Hemoglobin 26.3 pg (27-33); Mean Corpuscular Volume 87.5 fl (82-101); Mean Platelet Volume 8.2 fL (7.4-10.4); Monocytes # 0.8 10^3/uL (0.2-0.9); Monocytes % 6.4 %; Neutrophils # 10.04 10^3/uL (1.8-7.7); Neutrophils % 81.3 %; Nucleated Red Blood Cells % 0 %; Platelet Count 363 10^3/cmm (157-399); Red Blood Count 3.12 10^6/uL (3.85-5.65); Red Cell Distribution Width 16.2 % (12.1-15.1); White Blood Count 12.36 10^3/uL (3.29-11.43)
[2023-08-02 09:25] LABS: Alanine Aminotransferase 8 U/L (0-41); Albumin Level 3.1 g/dL (3.5-5.2); Alkaline Phosphatase 59 U/L (40-130); Blood Urea Nitrogen 38 mg/dL (8-23); Calcium 8.8 mg/dL (8.5-10.5); Carbon Dioxide 23 mmol/L (22-29); Chloride 95 mmol/L (98-107); Globulin 3.5 g/dL (1.3-4.6); Glomerular Filtration Rate 27.3 mL/min (90-130); Glucose 214 mg/dL (65-115); Osmolality Calculated 291 mOsm/kg (285-295); Sodium 133 mmol/L (136-145); Total Bilirubin 0.3 mg/dL (0.15-1.2); Total Protein 6.6 g/dL (6.6-8.7)
[2023-08-02 09:36] LABS: Vancomycin Trough 29.4 ug/mL (10-15)
[2023-08-02 09:39] LABS: Anion Gap 19.8 (5-19); Potassium 4.8 mmol/L (3.5-5.1)
[2023-08-02 09:40] LABS: Aspartate Amino Transferase 14 U/L (0-40)
[2023-08-02 11:53] LABS: Glucose Point of Care 225 mg/dL (70-110)
[2023-08-02] MEDS: collagenase oint 30 gm 1 APPLIC TOPICAL (16:13)
[2023-08-02 17:14] LABS: Glucose Point of Care 272 mg/dL (70-110)
[2023-08-02] MEDS: oxyCODONE 5 mg IR Tab/Cap PO (17:26)
--- NOTE | 2023-08-02 19:26 | PC.NURSE ---
This nurse called pharmacy to verify the vancomycin dosing and timing tonight. Pharmacy verified the dosing, frequency and duration. The vancomycin is to be started tonight as ordered.
--- NOTE | 2023-08-02 19:49 | P.PN_ITS ---
Subjective 2 Subjective: He states he is doing well, but has developed a rash around his arms, armpits, chest, seems related to antibiotic. No significant pain in his feet. Vitals/I&O/Wt Last Vital Signs Temp 98.3 F 08/02/23 16:00 Pulse 81 08/02/23 16:00 Resp 16 08/02/23 17:26 BP 130/58 08/02/23 16:00 Pulse Ox 98 08/02/23 16:00 O2 Del Method Room Air 08/02/23 16:00 08/02/23 08/02/23 08/02/23 06:59 14:59 22:59 Intake Total 810 / 2480.5 650 / 650 240 / 890 Output Total 200 / 200 450 / 650 Balance 810 / 1015.5 450 / 450 -210 / 240 Weight last 48 hrs Weight 230.879 kg Weight 224.982 kg Physical Exam 2 Const: COMMON NORMALS: patient oriented x3 and alert GENERAL APPEARANCE: c ooperative NUTRITIONAL APPEARANCE: obese morbidly obese O RIENTATION/CONSCIOUSNESS: Yes awake HENMT: COMMON NORMALS: oropharynx normal Neck/C-Spine: COMMON NORMALS: no JVD Resp: COMMON NORMALS: normal respiratory effort and clear to auscultation bilaterally AUSCULTATION: clear to auscultation bilaterally Cardio: COMMON NORMALS: no JVD, regular rhythm, S1 normal heart sound present, S2 normal heart sound present and No murmurs present (Cardio) RHYTHM: regular rhythm HEART SOUNDS: S1 normal heart sound present and S2 normal heart sound present GI: COMMON NORMALS: Normal to inspection, nondistended, normoactive bowel sounds present, Soft to palpation and non-tender PALPATION: Yes Soft to palpation Extremity: COMMON NORMALS: no joint enlargement and no pedal edema N ARRATIVE EXTREMITY EXAM: Lower extremities with possibly trace edema, wrapped in postoperative dressing below the knees.No bleeding or strikethrough at this time. Neuro: COMMON NORMALS: patient oriented x3 and moves all extremities S ENSORIUM/ORIENTATION: Yes alert Skin: OTHER: Maculopapular patches over rash over forearms, armpits and flanks, chest. Data 08/02/23 08:50 08/02/23 08:50 Micro: Microbiology 07/31/23 13:56 Blood Culture - Preliminary Blood 07/31/23 13:51 Blood Culture - Preliminary Blood 08/01/23 07:55 Gram Stain - Final Foot - #1 Tissue Culture - Preliminary Gram Negative Rods 08/01/23 07:50 Gram Stain - Final Bone Tissue Culture - Preliminary Gram Negative Rods A&P Assessment and plan (1) Osteomyelitis: Maculopapular patches of rash appear to be related to antibiotic although not entirely clear which 1. Has red man syndrome history with vancomycin, however, this does not appear like red man syndrome. Possibly Zosyn which she is currently getting infused. Discussed with him switching antibiotic. Reviewing cultures will switch to meropenem. Monitor for risk of seizure. Monitor for any worsening rash or recurrence of rash which may then be related to vancomycin. Monitor for red man syndrome as well. Noted worsening renal function, MIRTA with creatinine up to 2.4. Stopping Zosyn as above. Reassess. Reviewed Vanco level. Vanco dose was also adjusted. Follow-up bone biopsy cultures. So far showing gram-negative rods on review. Reviewed wound culture. Discussed with patient, bone biopsy has been collected during debridement. Follow-up culture. For now continue empiric tabetic coverage. Exchanged midline to PICC line. Requested. Discussed with caseworker protective services. Will need complete 6 weeks of antibiotics. Reviewed podiatry note. Has been resumed on Eliquis. Reviewed hemoglobin, 8.2. Reassess CBC. (2) Pressure injury of right foot, stage 4: Continue arrangements for LTAC versus skilled care for wound care, antibiotics extensive wounds, osteomyelitis, need for dressing changes, antibiotics. Discussed with caseworker protective services. Status post debridement bilateral lower extremity wounds. Continue postsurgical care. Continue empiric antibiotics as above. RD consultation. Reviewed note. Appreciate recommendations. Jaun twice daily, Ensure HP twice daily. Education. Reviewed vitals, CBC, noted anemia, hemoglobin 8. Reassess blood count at risk of anemia. Reviewed CMP. (3) Pressure injury of left foot, stage 4: (4) Pressure injury of left leg, stage 4: (5) Chronic anticoagulation: On chronic anticoagulation with Eliquis, primary care provider has him on 2.5 mg twice daily due to renal function (6) Atrial fibrillation: Chronic longstanding atrial fibrillation managed with amiodarone and beta- blockade Reviewed potassium,Magnesium. (7) CHF (congestive heart failure): CHF with preserved ejection fraction, last echocardiogram in 2021 was not able to visualize heart due to body habitus. Has torsemide as needed but does not often take it. On lisinopril chronically. (8) PVD (peripheral vascular disease): (9) HTN (hypertension): Primary hypertension with contributing secondary component (10) Diabetes mellitus, type II: Reviewed Accu-Cheks. Continue insulin unchanged for now. Insulin requiring, with multiple complications including hyperglycemia, neuropathy, peripheral vascular disease, currently with evidence of osteomyelitis, also with known chronic kidney disease stage IIIb. (11) CKD (chronic kidney disease): Stage IIIb. Has a history of requiring dialysis transiently in the past (12) Anemia: Reviewed CBC, no anemia, reviewed iron studies, noted iron deficiency. On iron sulfate. Anemia of chronic kidney disease and chronic inflammation with iron deficiency (13) Hypothyroidism: Acquired, on chronic levothyroxine (14) Sleep apnea: Obstructive sleep apnea, on home CPAP (15) BMI 60.0-69.9, adult: Plan Sliding scale and long-acting insulin for diabetes along with consistent carbohydrate diet Continue home ferrous sulfate dosing Continue home levothyroxine CPAP with sleep Antibiotics: Vancomycin and Zosyn started 07/31/2023 Disposition plan: Disposition will depend on clinical course but saying his wounds and progressive worsening despite outpatient management attempts, he may benefit from a period of time of more skilled care in a facility setting for ongoing wound care management as well as potential need for IV antibiotics. At the very least he will need resumption of home care and continued outpatient follow-up to wound care clinic. Attestations 2 Medical Necessity Statement*: Clinical osteomyelitis, extensive bilateral lower extremity wounds, allergic reaction to antibiotic, MIRTA. Diagnoses Osteomyelitis M86.9 Pressure injury of right foot, stage 4 L89.894 Pressure injury of left foot, stage 4 L89.894 Pressure injury of left leg, stage 4 L89.894 Chronic anticoagulation Z79.01 Atrial fibrillation I48.91 CHF (congestive heart failure) I50.9 PVD (peripheral vascular disease) I73.9 HTN (hypertension) I10 Diabetes mellitus, type II E11.9 CKD (chronic kidney disease) N18.9 Anemia D64.9 Hypothyroidism E03.9 Sleep apnea G47.30 BMI 60.0-69.9, adult Z68.44
[2023-08-02] MEDS: gabapentin 300 mg Capsule 900 MG PO (20:59)
[2023-08-02 21:33] LABS: Glucose Point of Care 185 mg/dL (70-110)
[2023-08-02] MEDS: diphenhydrAMINE 50 mg/mL SDV 1mL 25 MG IVP (22:05)
[2023-08-02] MEDS: vancomycin 2,000 MG/400 ML PIGGYBACK 100 MG IV (22:07)
[2023-08-03] MEDS: meropenem 1,000 MG in sodium chloride 0.9% (plus) 50 ML 100 MG IV ×3 (01:58→17:58)
[2023-08-03 03:41] VITALS: BP 126/62; PULSE 56; RESP 16; TEMP 36.8; O2SAT 93
[2023-08-03 04:31] LABS: Basophils % 0.2 %; Eosinophils # 0.6 10^3/uL (0.0-0.8); Eosinophils % 4.4 %; Hematocrit 26.8 % (37-53); Lymphocytes % 7.5 %; Mean Corpuscular HGB Conc 29.5 g/dL (30-55); Mean Corpuscular Hemoglobin 25.9 pg (27-33); Mean Corpuscular Volume 87.9 fl (82-101); Mean Platelet Volume 8.1 fL (7.4-10.4); Monocytes % 8.3 %; Neutrophils # 9.82 10^3/uL (1.8-7.7); Nucleated Red Blood Cells % 0 %; Platelet Count 391 10^3/cmm (157-399); Red Blood Count 3.05 10^6/uL (3.85-5.65); Red Cell Distribution Width 16.3 % (12.1-15.1)
[2023-08-03 04:58] LABS: Alanine Aminotransferase 9 U/L (0-41); Albumin Level 3.1 g/dL (3.5-5.2); Alkaline Phosphatase 60 U/L (40-130); Anion Gap 18.8 (5-19); Aspartate Amino Transferase 14 U/L (0-40); Blood Urea Nitrogen 41 mg/dL (8-23); Carbon Dioxide 23 mmol/L (22-29); Chloride 100 mmol/L (98-107); Globulin 4.1 g/dL (1.3-4.6); Glomerular Filtration Rate 24.9 mL/min (90-130); Glucose 149 mg/dL (65-115); Osmolality Calculated 297 mOsm/kg (285-295); Potassium 4.8 mmol/L (3.5-5.1); Sodium 137 mmol/L (136-145); Total Bilirubin 0.2 mg/dL (0.15-1.2); Total Protein 7.2 g/dL (6.6-8.7)
[2023-08-03] MEDS: levothyroxine 50 mcg Tablet PO (05:16)
[2023-08-03 06:00] VITALS: BMI 65.2
[2023-08-03 07:07] LABS: Glucose Point of Care 171 mg/dL (70-110)
[2023-08-03 07:45] VITALS: BP 132/58; PULSE 64; RESP 16; TEMP 36.7; O2SAT 91
[2023-08-03] MEDS: lisinopril 5 mg Tablet PO (08:44)
[2023-08-03] MEDS: amiodarone 200 mg Tablet PO (08:44)
[2023-08-03] MEDS: pantoprazole DR 40 mg Tablet PO (08:44)
[2023-08-03] MEDS: insulin lispro 100 unit/1 mL SUBCUT ×3 (08:45→17:59)
[2023-08-03] MEDS: metoprolol tartrate 25 mg Tablet 12.5 MG PO (08:45)
[2023-08-03] MEDS: ferrous sulfate EC 325 mg Tablet PO ×2 (08:45→17:59)
[2023-08-03] MEDS: apixaban 5 mg Tablet 2.5 MG PO ×2 (08:46→20:08)
[2023-08-03] MEDS: collagenase oint 30 gm 1 APPLIC TOPICAL (08:47)
[2023-08-03] MEDS: insulin glargine 100 units/1 mL 40 UNIT SUBCUT ×2 (10:34→22:15)
--- NOTE | 2023-08-03 10:34 | PC.CHAP ---
Pastoral Care Encounter/Spiritual Assessment Type of Contact [x] Declined senior production supervisor visit [] Patient/Family/Request visit [] Outpatient visit [] Follow-up visit [] Physician referral [] Code/Alert [] Routine visit [] Staff referral [] Actively dying [] Patient sleeping [] Family support [] [] Out of room [] Palliative care [] [] Receiving care in room [] Pre-surgical visit [] Trauma [] Long length of stay [] ICU visit [] Other: Relational/Emotional Strength [] Patient feels connected with others/family/visitors/staff [] Distress [] Loneliness/isolation [] Abandonment Spirituality of Patient [] Person of Haley [] Attends Mormonism of their Haley [] Believes in Prayer [] Reads Bible or Samaritan materials [] There are Spiritual issues to be addressed Intermediate Accountant Interventions [] Prayer [] Active listening [] Non-anxious presence [] Spiritual/emotional support [] Crisis/trauma care [] Spiritual counseling [] Bereavement support [] Provided bereavement packet [] Provided Bible/devotional materials [] Provided toy/stuffed animal, coloring book to patient or family member [] Provided Communion [] Anointing/Imogene [] Salvation [] Completed spiritual assessment [] Other: Impact on Illness or Injury [] Angry [] Fearful [] Anxious [] Often cries [] Exhaustion [] Unable to work [] Unable to attend religion [] Unable to walk/stand [] Unable to read [] Unable to drive [] Unable to eat/drink [] Unable to sleep [] Unable to be with family [] Patient intubated [] Other: Summary Declined senior production supervisor visit Time spent with patient 5 mis
[2023-08-03 11:25] LABS: Glucose Point of Care 168 mg/dL (70-110)
[2023-08-03] MEDS: diphenhydrAMINE 25 mg Capsule PO (11:36)
[2023-08-03 11:39] VITALS: BP 145/61; PULSE 55; RESP 16; TEMP 36.7; O2SAT 95
[2023-08-03] MEDS: linezolid premix 600 MG/300 ML PREMIX 300 MG IV (14:56)
[2023-08-03 14:57] VITALS: RESP 16
[2023-08-03] MEDS: oxyCODONE 5 mg IR Tab/Cap PO (14:57)
--- NOTE | 2023-08-03 15:23 | P.PN_ITS ---
Subjective 2 Subjective: Patient seen at bedside. No overnight events. Leukocytosis persists. Outpatient wound cultures resulted. Proteus ESBL Vitals/I&O/Wt Last Vital Signs Temp 98.0 F 08/03/23 11:39 Pulse 55 L 08/03/23 11:39 Resp 16 08/03/23 14:57 BP 145/61 08/03/23 11:39 Pulse Ox 95 08/03/23 11:39 O2 Del Method Room Air 08/03/23 11:39 08/03/23 08/03/23 08/03/23 06:59 14:59 22:59 Intake Total 450 / 1383.542 650 / 650 Output Total 450 / 1625 470 / 470 Balance 0 / -241.458 180 / 180 Weight last 48 hrs Weight 508 lb 3.2 oz Weight 509 lb Physical Exam 2 Narrative: GENERAL: A&O x 3 VASCULAR: DP/PT pulses palpable 2/4 with CFT intact, <3seconds to distal digits DERMATOLOGICAL: Bilateral dressings intact, clean and dry. No strikethrough noted. MUSCULOSKELETAL: Partial fifth ray resection right foot. Tenderness with palpation of posterior left leg wound NEUROLOGICAL: Neurological sensation to the affected foot and ankle is absent to the level of the mid leg bilaterally IMAGING: Three-view x-rays bilateral ankles, 2 view x-rays bilateral feet show right foot partial fifth ray resection with osteomyelitis present at the resection site. Periosteal reaction to fourth metatarsal head consistent with osteomyelitis. No subcutaneous emphysema noted. Left foot shows partial fifth metatarsal resection. No subcutaneous emphysema noted. Data 08/03/23 04:02 08/03/23 04:02 Micro: Microbiology 07/31/23 13:56 Blood Culture - Preliminary Blood 07/31/23 13:51 Blood Culture - Preliminary Blood 08/01/23 07:55 Gram Stain - Final Foot - #1 Tissue Culture - Preliminary Gram Negative Rods 08/01/23 07:50 Gram Stain - Final Bone Tissue Culture - Preliminary Gram Negative Rods A&P Assessment and plan (1) Ulcer of foot with necrosis of bone: (2) Venous stasis ulcer: (3) Diabetes mellitus, type II: (4) Edema: (5) Osteomyelitis: Plan -Multiple ulcerations to bilateral lower extremities. Clinical osteomyelitis to right foot fourth and fifth metatarsals and left calcaneus -Labs and vitals reviewed -WBC 12.6 -ESR 56 -CRP 110 -VSS -Cultures: Proteus Mirabilis ESBL -Abx: linezolid -Diet: Okay for diet from podiatry standpoint -Status post bilateral lower extremity wound debridement (08/01/2023) -No further surgical intervention by podiatry during this admission -Pain Mgmt: Per primary -Weight bearing: Weightbearing as tolerated for transfers only -Dressings: Left leg and heel wound to be dressed daily using Santyl, Adaptic, 4 x 4 gauze, Kerlix, Mike compression to the level of the knee. Right foot dressing to be changed twice daily with Betadine wet-to-dry. -Continue current Abx therapy. Patient will need long-term IV antibiotics -Trend labs -Discharge plan: Patient will likely need placement in SNF upon discharge from the hospital. Given clinical findings of osteomyelitis he will need PICC line placed and will require IV antibiotic therapy long-term. Lower extremity edema is driving force of patient's chronic ulcerations to the legs. Recommend Juzo compression wraps upon discharge if possible to help control edema. Further recommendation will be provided based on intraoperative findings. Patient would benefit from Prevalon boot to left lower extremity to offload stage IV decubitus heel ulcer -Podiatry will continue to round on patient daily and provide recommendations Attestations 2 Medical Necessity Statement*: Multiple wounds bilateral lower extremities. Patient will need long-term IV antibiotic therapy and likely discharge to [facility] facility. Coding Level of Care Code Acute Code for [facility] Diagnoses Ulcer of foot with necrosis of bone L97.504 Venous stasis ulcer I83.009; L97.909 Diabetes mellitus, type II E11.9 Edema R60.9 Osteomyelitis M86.9
[2023-08-03 16:00] VITALS: BP 130/60; PULSE 52; RESP 15; TEMP 36.7; O2SAT 94
[2023-08-03 16:44] LABS: Glucose Point of Care 200 mg/dL (70-110)
--- NOTE | 2023-08-03 19:45 | PC.NURSE ---
wound care----bilateral dressing changed @ abt 1800
[2023-08-03 20:00] VITALS: BP 148/78; PULSE 56; RESP 16; TEMP 36.6; O2SAT 96
[2023-08-03] MEDS: gabapentin 300 mg Capsule 900 MG PO (20:07)
[2023-08-03 22:13] LABS: Glucose Point of Care 138 mg/dL (70-110)
--- NOTE | 2023-08-03 23:17 | P.PN_ITS ---
Subjective 2 Subjective: He is still having a rash predominantly around the left arm, but also on his flanks, chest, abdomen. Vitals/I&O/Wt Last Vital Signs Temp 97.8 F 08/03/23 20:00 Pulse 56 L 08/03/23 20:00 Resp 16 08/03/23 20:00 BP 148/78 08/03/23 20:00 Pulse Ox 96 08/03/23 20:00 O2 Del Method Room Air 08/03/23 16:00 08/03/23 08/03/23 08/04/23 14:59 22:59 06:59 Intake Total 650 / 650 710 / 1360 Output Total 470 / 470 590 / 1060 Balance 180 / 180 120 / 300 Weight last 48 hrs Weight 230.516 kg Weight 230.879 kg Physical Exam 2 Const: COMMON NORMALS: patient oriented x3 and alert GENERAL APPEARANCE: c ooperative NUTRITIONAL APPEARANCE: obese morbidly obese O RIENTATION/CONSCIOUSNESS: Yes awake HENMT: COMMON NORMALS: oropharynx normal Neck/C-Spine: COMMON NORMALS: no JVD Resp: COMMON NORMALS: normal respiratory effort and clear to auscultation bilaterally AUSCULTATION: clear to auscultation bilaterally Cardio: COMMON NORMALS: no JVD, regular rhythm, S1 normal heart sound present, S2 normal heart sound present and No murmurs present (Cardio) RHYTHM: regular rhythm HEART SOUNDS: S1 normal heart sound present and S2 normal heart sound present GI: COMMON NORMALS: Normal to inspection, nondistended, normoactive bowel sounds present, Soft to palpation and non-tender PALPATION: Yes Soft to palpation Extremity: COMMON NORMALS: no joint enlargement and no pedal edema N ARRATIVE EXTREMITY EXAM: Lower extremities with possibly trace edema, wrapped in postoperative dressing below the knees.No bleeding or strikethrough at this time. Neuro: COMMON NORMALS: patient oriented x3 and moves all extremities S ENSORIUM/ORIENTATION: Yes alert Skin: OTHER: Maculopapular patches over rash over forearms, armpits and flanks, chest. Data 08/03/23 04:02 08/03/23 04:02 Micro: Microbiology 08/01/23 07:50 Gram Stain - Final Bone Tissue Culture - Preliminary Proteus mirabilis esbl 08/01/23 07:55 Gram Stain - Final Foot - #1 Tissue Culture - Preliminary Gram Negative Rods Gram Negative Rods#2 A&P Assessment and plan (1) Osteomyelitis: Still persistent rash. Additionally discussed with him worsening renal function, creatinine up to 2.6. Zosyn was stopped yesterday and switched to meropenem. However still persistent rash. Does not appear like red man syndrome. Suspected allergic reaction. Given Benadryl. Stop vancomycin. Start linezolid. Discussed with him. Monitor for macrocytosis risk with linezolid. Reviewed vitals, CBC, CMP. Reviewed blood culture, bone culture, so far gram- negative rods. Follow-up bone biopsy cultures. So far showing gram-negative rods on review. Reviewed wound culture. Discussed with telephonic case manager. Will need complete 6 weeks of antibiotics. Reviewed podiatry note. Has been resumed on Eliquis. Reviewed hemoglobin, 7.9. Reassess CBC. (2) Pressure injury of right foot, stage 4: Continue arrangements for LTAC versus skilled care for wound care, antibiotics extensive wounds, osteomyelitis, need for dressing changes, antibiotics. Discussed with telephonic case manager. Status post debridement bilateral lower extremity wounds. Continue postsurgical care. Continue empiric antibiotics as above. RD consultation. Reviewed note. Appreciate recommendations. Jaun twice daily, Ensure HP twice daily. Education. (3) Pressure injury of left foot, stage 4: (4) Pressure injury of left leg, stage 4: (5) Chronic anticoagulation: On chronic anticoagulation with Eliquis, primary care provider has him on 2.5 mg twice daily due to renal function (6) Atrial fibrillation: Chronic longstanding atrial fibrillation managed with amiodarone and beta- blockade Reviewed potassium,Magnesium. (7) CHF (congestive heart failure): CHF with preserved ejection fraction, last echocardiogram in 2021 was not able to visualize heart due to body habitus. Has torsemide as needed but does not often take it. On lisinopril chronically. (8) PVD (peripheral vascular disease): (9) HTN (hypertension): Primary hypertension with contributing secondary component (10) Diabetes mellitus, type II: Reviewed Accu-Cheks. Continue insulin unchanged for now. Insulin requiring, with multiple complications including hyperglycemia, neuropathy, peripheral vascular disease, currently with evidence of osteomyelitis, also with known chronic kidney disease stage IIIb. (11) CKD (chronic kidney disease): Stage IIIb. Has a history of requiring dialysis transiently in the past (12) Anemia: Reviewed CBC, no anemia, reviewed iron studies, noted iron deficiency. On iron sulfate. Anemia of chronic kidney disease and chronic inflammation with iron deficiency (13) Hypothyroidism: Acquired, on chronic levothyroxine (14) Sleep apnea: Obstructive sleep apnea, on home CPAP (15) BMI 60.0-69.9, adult: Plan MIRTA: Creatinine elevated at 2.6. Stop vancomycin. Hold lisinopril. Reassess kidney function. Sliding scale and long-acting insulin for diabetes along with consistent carbohydrate diet Continue home ferrous sulfate dosing Continue home levothyroxine CPAP with sleep Antibiotics: Vancomycin and Zosyn started 07/31/2023 Disposition plan: Disposition will depend on clinical course but saying his wounds and progressive worsening despite outpatient management attempts, he may benefit from a period of time of more skilled care in a facility setting for ongoing wound care management as well as potential need for IV antibiotics. At the very least he will need resumption of home care and continued outpatient follow-up to wound care clinic. Attestations 2 Medical Necessity Statement*: Multiple wounds bilateral lower extremities. Patient will need long-term IV antibiotic therapy and likely discharge to long-term facility. Diagnoses Osteomyelitis M86.9 Pressure injury of right foot, stage 4 L89.894 Pressure injury of left foot, stage 4 L89.894 Pressure injury of left leg, stage 4 L89.894 Chronic anticoagulation Z79.01 Atrial fibrillation I48.91 CHF (congestive heart failure) I50.9 PVD (peripheral vascular disease) I73.9 HTN (hypertension) I10 Diabetes mellitus, type II E11.9 CKD (chronic kidney disease) N18.9 Anemia D64.9 Hypothyroidism E03.9 Sleep apnea G47.30 BMI 60.0-69.9, adult Z68.44
[2023-08-04] VITALS (7 sets, daily range): BP systolic 133–173; BP diastolic 59–73; PULSE 51–77; RESP 16–18; TEMP 36.4–37.7; O2SAT 91–95
[2023-08-04] MEDS: meropenem 1,000 MG in sodium chloride 0.9% (plus) 50 ML 100 MG IV ×3 (00:54→18:10)
[2023-08-04] MEDS: linezolid premix 600 MG/300 ML PREMIX 300 MG IV ×2 (01:38→15:58)
[2023-08-04] MEDS: levothyroxine 50 mcg Tablet PO (05:04)
[2023-08-04 05:12] LABS: Basophils % 0.4 %; Eosinophils # 0.5 10^3/uL (0.0-0.8); Eosinophils % 5.3 %; Hematocrit 26.5 % (37-53); Lymphocytes # 1.1 10^3/uL (0.8-4.8); Lymphocytes % 10.8 %; Mean Corpuscular HGB Conc 29.8 g/dL (30-55); Mean Corpuscular Hemoglobin 26.1 pg (27-33); Mean Corpuscular Volume 87.5 fl (82-101); Mean Platelet Volume 8.1 fL (7.4-10.4); Monocytes % 9.7 %; Neutrophils # 7.38 10^3/uL (1.8-7.7); Neutrophils % 71.9 %; Nucleated Red Blood Cells % 0 %; Platelet Count 367 10^3/cmm (157-399); Red Blood Count 3.03 10^6/uL (3.85-5.65); Red Cell Distribution Width 16.5 % (12.1-15.1); White Blood Count 10.26 10^3/uL (3.29-11.43)
[2023-08-04 05:36] LABS: Blood Urea Nitrogen 45 mg/dL (8-23); Carbon Dioxide 23 mmol/L (22-29); Chloride 99 mmol/L (98-107); Glucose 150 mg/dL (65-115); Osmolality Calculated 294 mOsm/kg (285-295); Sodium 135 mmol/L (136-145)
[2023-08-04 05:40] LABS: Anion Gap 17.4 (5-19); Potassium 4.4 mmol/L (3.5-5.1)
[2023-08-04 06:49] LABS: Glucose Point of Care 142 mg/dL (70-110)
[2023-08-04 06:49] LABS: Glucose Point of Care 160 mg/dL (70-110)
[2023-08-04] MEDS: insulin lispro 100 unit/1 mL SUBCUT ×4 (08:51→20:51)
[2023-08-04] MEDS: ferrous sulfate EC 325 mg Tablet PO ×2 (08:53→18:10)
[2023-08-04] MEDS: metoprolol tartrate 25 mg Tablet 12.5 MG PO ×2 (08:54→20:50)
[2023-08-04] MEDS: insulin glargine 100 units/1 mL 40 UNIT SUBCUT ×2 (08:54→19:33)
[2023-08-04] MEDS: amiodarone 200 mg Tablet PO (08:54)
[2023-08-04] MEDS: pantoprazole DR 40 mg Tablet PO (08:54)
[2023-08-04] MEDS: collagenase oint 30 gm 1 APPLIC TOPICAL (08:59)
[2023-08-04] MEDS: apixaban 5 mg Tablet 2.5 MG PO ×2 (09:01→20:50)
[2023-08-04] MEDS: oxyCODONE 5 mg IR Tab/Cap PO (10:41)
[2023-08-04 11:19] LABS: Glucose Point of Care 182 mg/dL (70-110)
[2023-08-04 16:31] LABS: Glucose Point of Care 183 mg/dL (70-110)
--- NOTE | 2023-08-04 19:15 | PM.PN ---
Subjective Subjective: Patches of micropapular erythema persistent but gradually decreasing. No chest pain or pressure. No nausea vomiting or diarrhea. Vitals/I&O/Wt Last Vital Signs Temp 98.1 F 08/04/23 16:00 Pulse 77 08/04/23 16:00 Resp 16 08/04/23 16:00 BP 139/59 08/04/23 16:00 Pulse Ox 91 08/04/23 16:00 O2 Del Method Room Air 08/04/23 16:00 08/04/23 08/04/23 08/04/23 06:59 14:59 22:59 Intake Total 350 / 1710 650 / 650 240 / 890 Output Total 325 / 1385 600 / 600 Balance 25 / 325 50 / 50 240 / 290 Weight last 48 hrs Weight 222.668 kg Weight 230.516 kg Physical Exam Const: COMMON NORMALS: patient oriented x3 and alert GENERAL APPEARANCE: cooperative NUTRITIONAL APPEARANCE: obese morbidly obese ORIENTATION/CONSCIOUSNESS: Yes awake HENMT: COMMON NORMALS: oropharynx normal Neck/C-Spine: COMMON NORMALS: no JVD Resp: COMMON NORMALS: normal respiratory effort and clear to auscultation bilaterally AUSCULTATION: clear to auscultation bilaterally Cardio: COMMON NORMALS: no JVD, regular rhythm, S1 normal heart sound present, S2 normal heart sound present and No murmurs present (Cardio) RHYTHM: regular rhythm HEART SOUNDS: S1 normal heart sound present and S2 normal heart sound present GI: COMMON NORMALS: Normal to inspection, nondistended, normoactive bowel sounds present, Soft to palpation and non-tender PALPATION: Yes Soft to palpation Extremity: COMMON NORMALS: no joint enlargement and no pedal edema NARRATIVE EXTREMITY EXAM: Lower extremities with possibly trace edema, wrapped in postoperative dressing below the knees.No bleeding or strikethrough at this time. Neuro: COMMON NORMALS: patient oriented x3 and moves all extremities SENSORIUM/ORIENTATION: Yes alert Skin: OTHER: Improving Maculopapular patches over rash over forearms, armpits and flanks, chest. Data 08/04/23 05:07 08/04/23 05:07 Micro: Microbiology 08/01/23 07:55 Gram Stain - Final Foot - #1 Tissue Culture - Preliminary Klebsiella pneumonia esbl Morganella morganii Providencia stuartii Coag positive Staphylococcus 08/01/23 07:50 Gram Stain - Final Bone Tissue Culture - Preliminary Proteus mirabilis esbl A&P Assessment and plan (1) Osteomyelitis: Reviewed vitals, CBC, CMP. Blood cultures, wound cultures. Noted ESBL proteus resistant to everything but amikacin. Imipenem is not listed, leaving message with micro to see if sensitivity available. Complicated infection it will be difficult to match an antimicrobial agent. Risk of toxicity with aminoglycoside. Reviewed cultures from the foot as well, noted growing Klebsiella, Morganella, [facility], also coag positive staph. Follow-up Staph ID.There is MRSA growing from prior culture from 07/31. Continue linezolid. Rash persists, but milder fter change of antibiotics. Reassess. Discussed with case making machine operator. Follow-up bone biopsy cultures. So far showing gram-negative rods on review. Reviewed wound culture. Discussed with case making machine operator. Will need complete 6 weeks of antibiotics. Reviewed podiatry note. Has been resumed on Eliquis. Reviewed hemoglobin, 7.9. Reassess CBC. (2) Pressure injury of right foot, stage 4: Continue arrangements for LTAC versus skilled care for wound care, antibiotics extensive wounds, osteomyelitis, need for dressing changes, antibiotics. Discussed with case making machine operator. Status post debridement bilateral lower extremity wounds. Continue postsurgical care. Continue empiric antibiotics as above. RD consultation. Reviewed note. Appreciate recommendations. Jaun twice daily, Ensure HP twice daily. Education. (3) Pressure injury of left foot, stage 4: (4) Pressure injury of left leg, stage 4: (5) Chronic anticoagulation: On chronic anticoagulation with Eliquis, primary care provider has him on 2.5 mg twice daily due to renal function (6) Atrial fibrillation: Chronic longstanding atrial fibrillation managed with amiodarone and beta-blockade Reviewed potassium,Magnesium. (7) CHF (congestive heart failure): CHF with preserved ejection fraction, last echocardiogram in 2021 was not able to visualize heart due to body habitus. Has torsemide as needed but does not often take it. On lisinopril chronically. (8) PVD (peripheral vascular disease): (9) HTN (hypertension): Primary hypertension with contributing secondary component (10) Diabetes mellitus, type II: Reviewed Accu-Cheks. Continue insulin unchanged for now. Insulin requiring, with multiple complications including hyperglycemia, neuropathy, peripheral vascular disease, currently with evidence of osteomyelitis, also with known chronic kidney disease stage IIIb. (11) CKD (chronic kidney disease): Reviewed BUN and creatinine. MIRTA on CKD, creatinine up to 2.6 yesterday, antibiotics changed. Today slightly better down to 2.5. Reassess. Potassium is okay. Anion gap 17.4, bicarb 23. Stage IIIb. Has a history of requiring dialysis transiently in the past (12) Anemia: Reviewed CBC, no anemia, reviewed iron studies, noted iron deficiency. On iron sulfate. Anemia of chronic kidney disease and chronic inflammation with iron deficiency (13) Hypothyroidism: Acquired, on chronic levothyroxine (14) Sleep apnea: Obstructive sleep apnea, on home CPAP (15) BMI 60.0-69.9, adult: Plan MIRTA: As above, Slightly better today, creatinine down to 2.5. Vancomycin stopped. Reassess renal function. Sliding scale and long-acting insulin for diabetes along with consistent carbohydrate diet Continue home ferrous sulfate dosing Continue home levothyroxine CPAP with sleep Disposition plan: Disposition will depend on clinical course but saying his wounds and progressive worsening despite outpatient management attempts, he may benefit from a period of time of more skilled care in a facility setting for ongoing wound care management as well as potential need for IV antibiotics. At the very least he will need resumption of home care and continued outpatient follow-up to wound care clinic. Attestations Medical Necessity Statement*: Multiple wounds bilateral lower extremities. Complicated infection with MDRO. Patient will need long-term IV antibiotic therapy and likely discharge to [facility]. Diagnoses Osteomyelitis M86.9 Pressure injury of right foot, stage 4 L89.894 Pressure injury of left foot, stage 4 L89.894 Pressure injury of left leg, stage 4 L89.894 Chronic anticoagulation Z79.01 Atrial fibrillation I48.91 CHF (congestive heart failure) I50.9 PVD (peripheral vascular disease) I73.9 HTN (hypertension) I10 Diabetes mellitus, type II E11.9 CKD (chronic kidney disease) N18.9 Anemia D64.9 Hypothyroidism E03.9 Sleep apnea G47.30 BMI 60.0-69.9, adult Z68.44
[2023-08-04 19:38] LABS: Glucose Point of Care 193 mg/dL (70-110)
[2023-08-04 20:50] LABS: Glucose Point of Care 175 mg/dL (70-110)
[2023-08-04] MEDS: gabapentin 300 mg Capsule 900 MG PO (20:50)
[2023-08-04 22:59] LABS: Glucose Point of Care 167 mg/dL (70-110)
[2023-08-05] VITALS (7 sets, daily range): BP systolic 144–161; BP diastolic 60–72; PULSE 46–60; RESP 16–19; TEMP 36.5–37.5; O2SAT 95–97; BMI 65.4
[2023-08-05] MEDS: meropenem 1,000 MG in sodium chloride 0.9% (plus) 50 ML 100 MG IV ×3 (01:07→17:52)
[2023-08-05] MEDS: linezolid premix 600 MG/300 ML PREMIX 300 MG IV ×2 (01:35→14:07)
[2023-08-05 05:07] LABS: Basophils # 0.1 10^3/uL (0.0-0.1); Basophils % 0.5 %; Eosinophils # 0.5 10^3/uL (0.0-0.8); Eosinophils % 5.3 %; Hematocrit 27.2 % (37-53); Lymphocytes # 1.3 10^3/uL (0.8-4.8); Lymphocytes % 13.2 %; Mean Corpuscular HGB Conc 28.7 g/dL (30-55); Mean Corpuscular Volume 90.7 fl (82-101); Mean Platelet Volume 8.2 fL (7.4-10.4); Monocytes # 1.1 10^3/uL (0.2-0.9); Monocytes % 11.4 %; Neutrophils # 6.37 10^3/uL (1.8-7.7); Neutrophils % 67.5 %; Nucleated Red Blood Cells % 0 %; Platelet Count 404 10^3/cmm (157-399); Red Cell Distribution Width 16.7 % (12.1-15.1); White Blood Count 9.45 10^3/uL (3.29-11.43)
[2023-08-05] MEDS: levothyroxine 50 mcg Tablet PO (05:17)
[2023-08-05 05:35] LABS: Blood Urea Nitrogen 42 mg/dL (8-23); Calcium 8.7 mg/dL (8.5-10.5); Carbon Dioxide 25 mmol/L (22-29); Chloride 102 mmol/L (98-107); Glomerular Filtration Rate 30.2 mL/min (90-130); Glucose 162 mg/dL (65-115); Osmolality Calculated 298 mOsm/kg (285-295); Sodium 137 mmol/L (136-145)
[2023-08-05 05:39] LABS: Anion Gap 14.5 (5-19); Potassium 4.5 mmol/L (3.5-5.1)
[2023-08-05] MEDS: insulin glargine 100 units/1 mL 40 UNIT SUBCUT ×2 (08:15→21:17)
[2023-08-05] MEDS: metoprolol tartrate 25 mg Tablet 12.5 MG PO ×2 (08:16→21:17)
[2023-08-05] MEDS: amiodarone 200 mg Tablet PO (08:16)
[2023-08-05] MEDS: ferrous sulfate EC 325 mg Tablet PO ×2 (08:16→17:54)
[2023-08-05] MEDS: pantoprazole DR 40 mg Tablet PO (08:16)
[2023-08-05] MEDS: apixaban 5 mg Tablet 2.5 MG PO ×2 (08:17→21:16)
[2023-08-05] MEDS: collagenase oint 30 gm 1 APPLIC TOPICAL (08:19)
[2023-08-05] MEDS: insulin lispro 100 unit/1 mL SUBCUT ×4 (08:19→21:17)
[2023-08-05 11:20] LABS: Glucose Point of Care 165 mg/dL (70-110)
[2023-08-05] MEDS: oxyCODONE 5 mg IR Tab/Cap PO (14:10)
[2023-08-05 17:20] LABS: Glucose Point of Care 178 mg/dL (70-110)
--- NOTE | 2023-08-05 20:16 | PM.PN ---
Subjective Subjective: No new symptoms. Patches of erythema gradually improving. Slow to improve. He states that this was an issue once in the past. Vitals/I&O/Wt Last Vital Signs Temp 97.9 F 08/05/23 16:00 Pulse 59 L 08/05/23 16:00 Resp 16 08/05/23 16:00 BP 158/72 08/05/23 16:00 Pulse Ox 95 08/05/23 16:00 O2 Del Method Room Air 08/05/23 16:00 08/05/23 08/05/23 08/05/23 06:59 14:59 22:59 Intake Total 350 / 1590 530 / 530 240 / 770 Output Total 350 / 950 725 / 725 Balance 0 / 640 -195 / -195 240 / 45 Weight last 48 hrs Weight 231.015 kg Weight 222.668 kg Physical Exam Narrative: Accompanied by family. Const: COMMON NORMALS: patient oriented x3 and alert GENERAL APPEARANCE: cooperative NUTRITIONAL APPEARANCE: obese morbidly obese ORIENTATION/CONSCIOUSNESS: Yes awake HENMT: COMMON NORMALS: oropharynx normal Neck/C-Spine: COMMON NORMALS: no JVD Resp: COMMON NORMALS: normal respiratory effort and clear to auscultation bilaterally AUSCULTATION: clear to auscultation bilaterally Cardio: COMMON NORMALS: no JVD, regular rhythm, S1 normal heart sound present, S2 normal heart sound present and No murmurs present (Cardio) RHYTHM: regular rhythm HEART SOUNDS: S1 normal heart sound present and S2 normal heart sound present GI: COMMON NORMALS: Normal to inspection, nondistended, normoactive bowel sounds present, Soft to palpation and non-tender PALPATION: Yes Soft to palpation Extremity: COMMON NORMALS: no joint enlargement and no pedal edema NARRATIVE EXTREMITY EXAM: Lower extremities with possibly trace edema, wrapped in postoperative dressing below the knees.No bleeding or strikethrough at this time. Neuro: COMMON NORMALS: patient oriented x3 and moves all extremities SENSORIUM/ORIENTATION: Yes alert Skin: OTHER: Slowly improving maculopapular patches over rash over forearms, armpits and flanks, chest. Data 08/05/23 04:45 08/05/23 04:45 Micro: Microbiology 08/01/23 07:55 Gram Stain - Final Foot - #1 Tissue Culture - Preliminary Klebsiella pneumonia esbl Morganella morganii Providencia stuartii Methicillin Resis Staph Aureus A&P Assessment and plan (1) Osteomyelitis: Discussed with him results of wound culture so far. Discussed resistance extensive resistance in the organisms, as well as resistance of Proteus on the bone culture. Discussed consideration of amikacin, but he agrees with concern for toxicity, his kidney function already is not good. Additionally risk of stroke ototoxicity, other. Reviewed culture again, yesterday discussed with microbiology to see if there may be sensitivity to Carbapenem. So far not reported. Will reach out to micro again. Consider reaching out to infectious disease when available on Monday. Reviewed vitals, CBC, CMP. Blood cultures, wound cultures. Rash persists, but milder fter change of antibiotics. Reassess. Continue pain control. Renew oxycodone. Follow-up bone biopsy cultures. So far showing gram-negative rods on review. Reviewed wound culture. Discussed with casework supervisor. Will need complete 6 weeks of antibiotics. Reviewed podiatry note. Has been resumed on Eliquis. Reviewed hemoglobin, 7.9. Reassess CBC. (2) Pressure injury of right foot, stage 4: Continue arrangements for LTAC versus skilled care for wound care, antibiotics extensive wounds, osteomyelitis, need for dressing changes, antibiotics. Discussed with casework supervisor. Status post debridement bilateral lower extremity wounds. Continue postsurgical care. Continue empiric antibiotics as above. RD consultation. Reviewed note. Appreciate recommendations. Jaun twice daily, Ensure HP twice daily. Education. (3) Pressure injury of left foot, stage 4: (4) Pressure injury of left leg, stage 4: (5) Chronic anticoagulation: On chronic anticoagulation with Eliquis, primary care provider has him on 2.5 mg twice daily due to renal function (6) Atrial fibrillation: Chronic longstanding atrial fibrillation managed with amiodarone and beta-blockade Reviewed potassium,Magnesium. (7) CHF (congestive heart failure): CHF with preserved ejection fraction, last echocardiogram in 2021 was not able to visualize heart due to body habitus. Has torsemide as needed but does not often take it. On lisinopril chronically. (8) PVD (peripheral vascular disease): (9) HTN (hypertension): Primary hypertension with contributing secondary component (10) Diabetes mellitus, type II: Reviewed Accu-Cheks. Continue insulin unchanged for now. Insulin requiring, with multiple complications including hyperglycemia, neuropathy, peripheral vascular disease, currently with evidence of osteomyelitis, also with known chronic kidney disease stage IIIb. (11) CKD (chronic kidney disease): Reviewed BUN and creatinine. MIRTA on CKD, creatinine up to 2.6 yesterday, antibiotics changed. Today slightly better down to 2.5. Reassess. Potassium is okay. Anion gap 17.4, bicarb 23. Stage IIIb. Has a history of requiring dialysis transiently in the past (12) Anemia: Reviewed CBC, no anemia, reviewed iron studies, noted iron deficiency. On iron sulfate. Anemia of chronic kidney disease and chronic inflammation with iron deficiency (13) Hypothyroidism: Acquired, on chronic levothyroxine (14) Sleep apnea: Obstructive sleep apnea, on home CPAP (15) BMI 60.0-69.9, adult: Plan Bradycardia: Decrease amiodarone dose to 100 mg. Continue low-dose metoprolol. Monitor heart rates. MIRTA: As above, Slightly better today, creatinine down to 2.5. Vancomycin stopped. Reassess renal function. Sliding scale and long-acting insulin for diabetes along with consistent carbohydrate diet Continue home ferrous sulfate dosing Continue home levothyroxine CPAP with sleep Disposition plan: Disposition will depend on clinical course but saying his wounds and progressive worsening despite outpatient management attempts, he may benefit from a period of time of more skilled care in a facility setting for ongoing wound care management as well as potential need for IV antibiotics. At the very least he will need resumption of home care and continued outpatient follow-up to wound care clinic. Attestations Medical Necessity Statement*: Continue admission for assessment management of complicated infections of lower extremities with MDRO osteomyelitis, multiple pressure ulcers with MDRO organisms growing, bradycardia, other conditions above. Diagnoses Osteomyelitis M86.9 Pressure injury of right foot, stage 4 L89.894 Pressure injury of left foot, stage 4 L89.894 Pressure injury of left leg, stage 4 L89.894 Chronic anticoagulation Z79.01 Atrial fibrillation I48.91 CHF (congestive heart failure) I50.9 PVD (peripheral vascular disease) I73.9 HTN (hypertension) I10 Diabetes mellitus, type II E11.9 CKD (chronic kidney disease) N18.9 Anemia D64.9 Hypothyroidism E03.9 Sleep apnea G47.30 BMI 60.0-69.9, adult Z68.44
[2023-08-05 21:07] LABS: Glucose Point of Care 179 mg/dL (70-110)
[2023-08-05] MEDS: gabapentin 300 mg Capsule 900 MG PO (21:17)
[2023-08-06] VITALS (9 sets, daily range): BP systolic 131–162; BP diastolic 61–69; PULSE 54–60; RESP 16–20; TEMP 36.6–38.1; O2SAT 91–96; BMI 64.4
[2023-08-06] MEDS: meropenem 1,000 MG in sodium chloride 0.9% (plus) 50 ML 100 MG IV ×3 (00:45→17:11)
[2023-08-06] MEDS: linezolid premix 600 MG/300 ML PREMIX 300 MG IV ×2 (01:14→14:38)
[2023-08-06] MEDS: levothyroxine 50 mcg Tablet PO (05:19)
[2023-08-06 05:48] LABS: Basophils # 0.1 10^3/uL (0.0-0.1); Basophils % 0.4 %; Eosinophils # 0.4 10^3/uL (0.0-0.8); Eosinophils % 3.1 %; Lymphocytes # 1.6 10^3/uL (0.8-4.8); Mean Corpuscular HGB Conc 29.6 g/dL (30-55); Mean Corpuscular Hemoglobin 26.3 pg (27-33); Mean Corpuscular Volume 88.9 fl (82-101); Mean Platelet Volume 8.2 fL (7.4-10.4); Monocytes # 1.3 10^3/uL (0.2-0.9); Monocytes % 11.2 %; Neutrophils # 7.82 10^3/uL (1.8-7.7); Nucleated Red Blood Cells % 0 %; Platelet Count 337 10^3/cmm (157-399); Red Blood Count 3.15 10^6/uL (3.85-5.65); Red Cell Distribution Width 16.9 % (12.1-15.1); White Blood Count 11.17 10^3/uL (3.29-11.43)
[2023-08-06 06:06] LABS: Blood Urea Nitrogen 37 mg/dL (8-23); Calcium 8.7 mg/dL (8.5-10.5); Carbon Dioxide 26 mmol/L (22-29); Chloride 104 mmol/L (98-107); Glomerular Filtration Rate 35.8 mL/min (90-130); Glucose 121 mg/dL (65-115); Osmolality Calculated 298 mOsm/kg (285-295); Sodium 139 mmol/L (136-145)
[2023-08-06 06:08] LABS: Anion Gap 13.9 (5-19); Potassium 4.9 mmol/L (3.5-5.1)
[2023-08-06 06:18] LABS: Glucose Point of Care 122 mg/dL (70-110)
[2023-08-06 07:59] LABS: Glucose Point of Care 121 mg/dL (70-110)
[2023-08-06] MEDS: ferrous sulfate EC 325 mg Tablet PO ×2 (08:25→17:10)
[2023-08-06] MEDS: metoprolol tartrate 25 mg Tablet 12.5 MG PO ×2 (08:25→21:03)
[2023-08-06] MEDS: pantoprazole DR 40 mg Tablet PO (08:25)
[2023-08-06] MEDS: oxyCODONE 5 mg IR Tab/Cap PO ×2 (08:25→14:38)
[2023-08-06] MEDS: amiodarone 200 mg Tablet 100 MG PO (08:26)
[2023-08-06] MEDS: apixaban 5 mg Tablet 2.5 MG PO ×2 (08:26→21:03)
[2023-08-06] MEDS: insulin glargine 100 units/1 mL 40 UNIT SUBCUT ×2 (09:11→21:02)
[2023-08-06] MEDS: collagenase oint 30 gm 1 APPLIC TOPICAL (09:11)
[2023-08-06] MEDS: loperamide 2 mg Capsule PO ×2 (10:25→17:10)
[2023-08-06 11:29] LABS: Glucose Point of Care 131 mg/dL (70-110)
--- NOTE | 2023-08-06 12:43 | P.PN_ITS ---
Subjective 2 Subjective: No additional new symptoms, maculopapular patches of rash are resolving. Vitals/I&O/Wt Last Vital Signs Temp 97.8 F 08/06/23 11:11 Pulse 55 L 08/06/23 11:11 Resp 16 08/06/23 11:11 BP 140/65 08/06/23 11:11 Pulse Ox 92 08/06/23 11:11 O2 Del Method Room Air 08/06/23 11:11 08/05/23 08/06/23 08/06/23 22:59 06:59 14:59 Intake Total 590 / 1120 350 / 1470 290 / 290 Output Total 250 / 975 750 / 1725 Balance 340 / 145 -400 / -255 290 / 290 Weight last 48 hrs Weight 227.567 kg Weight 231.015 kg Physical Exam 2 Const: COMMON NORMALS: patient oriented x3 and alert GENERAL APPEARANCE: c ooperative NUTRITIONAL APPEARANCE: obese morbidly obese O RIENTATION/CONSCIOUSNESS: Yes awake HENMT: COMMON NORMALS: oropharynx normal Neck/C-Spine: COMMON NORMALS: no JVD Resp: COMMON NORMALS: normal respiratory effort and clear to auscultation bilaterally AUSCULTATION: clear to auscultation bilaterally Cardio: COMMON NORMALS: no JVD, regular rhythm, S1 normal heart sound present, S2 normal heart sound present and No murmurs present (Cardio) RHYTHM: regular rhythm HEART SOUNDS: S1 normal heart sound present and S2 normal heart sound present GI: COMMON NORMALS: Normal to inspection, nondistended, normoactive bowel sounds present, Soft to palpation and non-tender PALPATION: Yes Soft to palpation Extremity: COMMON NORMALS: no joint enlargement and no pedal edema N ARRATIVE EXTREMITY EXAM: Lower extremities with possibly trace edema, wrapped in postoperative dressing below the knees.No bleeding or strikethrough at this time. Neuro: COMMON NORMALS: patient oriented x3 and moves all extremities S ENSORIUM/ORIENTATION: Yes alert Skin: OTHER: Slowly improving maculopapular patches over rash over forearms, armpits and flanks, chest. Data 08/06/23 05:35 08/06/23 05:35 Micro: Microbiology 08/01/23 07:55 Gram Stain - Final Foot - #1 Tissue Culture - Preliminary Klebsiella pneumonia esbl Morganella morganii Providencia stuartii Methicillin Resis Staph Aureus A&P Assessment and plan (1) Osteomyelitis: Discussed with [place] tech, Proteus mirabilis in bone culture. Imipenem MONICA 2 (goes up to 8). Not the primary choice, but the other option associated with significant risk of toxicity with alraedy underlying renal dysfunction. As discussed with him there is a risk of treatment failure with meropenem with Proteus. Please consult with ID tomorrow if available regarding further course of action, consideration of suboptimal antibiotic choice, risk of toxicity with aminoglycoside vs other options, possibly consideration of amputation vs other? Additional culture reviewed from 07/31, also noted bone R foot, bu polymicrobial and from 07/31 - prior to his procedure, this appears likely superficial swab. For the moment continue meropenem. Linezolid, monitor for agranulocytosis. Reviewed vitals, CBC, CMP. Blood cultures. Rash resolving, but milder after change of antibiotics. Likely vancomycin allergy and not red man. Reassess. Continue pain control. Renew oxycodone. Follow-up bone biopsy cultures. So far showing gram-negative rods on review. Reviewed wound culture. Discussed with mattress spring encaser. Will need complete 6 weeks of antibiotics. Reviewed podiatry note. Has been resumed on Eliquis. Reviewed hemoglobin, 8.3. Reassess CBC. (2) Pressure injury of right foot, stage 4: Continue arrangements for LTAC versus skilled care for wound care, antibiotics extensive wounds, osteomyelitis, need for dressing changes, antibiotics. Collagenase ointment. Status post debridement bilateral lower extremity wounds. Continue postsurgical care. Continue empiric antibiotics as above. RD consultation. Reviewed note. Appreciate recommendations. Jaun twice daily, Ensure HP twice daily. Education. (3) Pressure injury of left foot, stage 4: (4) Pressure injury of left leg, stage 4: (5) Chronic anticoagulation: Has been resumed. On chronic anticoagulation with Eliquis, primary care provider has him on 2.5 mg twice daily due to renal function (6) Atrial fibrillation: Chronic longstanding atrial fibrillation managed with amiodarone and beta- blockade Reviewed potassium (7) CHF (congestive heart failure): CHF with preserved ejection fraction, last echocardiogram in 2021 was not able to visualize heart due to body habitus. Has torsemide as needed but does not often take it. On lisinopril chronically. (8) PVD (peripheral vascular disease): (9) HTN (hypertension): Primary hypertension with contributing secondary component (10) Diabetes mellitus, type II: Reviewed Accu-Cheks. Continue insulin unchanged at current time. Insulin requiring, with multiple complications including hyperglycemia, neuropathy, peripheral vascular disease, currently with evidence of osteomyelitis, also with known chronic kidney disease stage IIIb. (11) CKD (chronic kidney disease): Reviewed BUN and creatinine. Improvement in BUN and creatinine since changing antibiotics. Follow up levels. Potassium is okay. Anion gap and bicarb ok. Stage IIIb. Has a history of requiring dialysis transiently in the past (12) Anemia: Reviewed CBC, no anemia, reviewed iron studies, noted iron deficiency. On iron sulfate. Anemia of chronic kidney disease and chronic inflammation with iron deficiency (13) Hypothyroidism: Acquired, on chronic levothyroxine (14) Sleep apnea: Obstructive sleep apnea, on home CPAP (15) BMI 60.0-69.9, adult: Plan Bradycardia: Still in 50s. Check magnesium. Decreased amiodarone dose to 100 mg. Continue low-dose metoprolol. Monitor heart rates. MIRTA: As above, Slightly better today, creatinine down to 2.5. Vancomycin stopped. Reassess renal function. Sliding scale and long-acting insulin for diabetes along with consistent carbohydrate diet Continue home ferrous sulfate dosing Continue home levothyroxine CPAP with sleep Disposition plan: Disposition will depend on clinical course but saying his wounds and progressive worsening despite outpatient management attempts, he may benefit from a period of time of more skilled care in a facility setting for ongoing wound care management as well as potential need for IV antibiotics. At the very least he will need resumption of home care and continued outpatient follow-up to wound care clinic. Attestations 2 Medical Necessity Statement*: Continue admission for assessment management of complicated infections of lower extremities with MDRO osteomyelitis, multiple pressure ulcers with MDRO organisms growing, bradycardia, other conditions above. and High MDM includes number and complexity of problems actively addressed during encounter and described risk of complication, morbidity or mortality of management as documented Diagnoses Osteomyelitis M86.9 Pressure injury of right foot, stage 4 L89.894 Pressure injury of left foot, stage 4 L89.894 Pressure injury of left leg, stage 4 L89.894 Chronic anticoagulation Z79.01 Atrial fibrillation I48.91 CHF (congestive heart failure) I50.9 PVD (peripheral vascular disease) I73.9 HTN (hypertension) I10 Diabetes mellitus, type II E11.9 CKD (chronic kidney disease) N18.9 Anemia D64.9 Hypothyroidism E03.9 Sleep apnea G47.30 BMI 60.0-69.9, adult Z68.44
[2023-08-06 16:46] LABS: Glucose Point of Care 174 mg/dL (70-110)
[2023-08-06] MEDS: insulin lispro 100 unit/1 mL SUBCUT ×2 (17:10→21:03)
[2023-08-06 20:46] LABS: Glucose Point of Care 176 mg/dL (70-110)
[2023-08-06] MEDS: gabapentin 300 mg Capsule 900 MG PO (21:03)
[2023-08-07] MEDS: linezolid premix 600 MG/300 ML PREMIX 300 MG IV (00:30)
[2023-08-07 03:28] VITALS: BP 153/72; PULSE 50; RESP 18; TEMP 36.9; O2SAT 97; BMI 64.7
[2023-08-07] MEDS: levothyroxine 50 mcg Tablet PO (05:17)
[2023-08-07 05:48] LABS: Basophils # 0.1 10^3/uL (0.0-0.1); Basophils % 0.7 %; Eosinophils # 0.3 10^3/uL (0.0-0.8); Eosinophils % 3.9 %; Hematocrit 27.1 % (37-53); Lymphocytes # 1.8 10^3/uL (0.8-4.8); Lymphocytes % 23.1 %; Mean Corpuscular HGB Conc 29.2 g/dL (30-55); Mean Corpuscular Volume 89.1 fl (82-101); Mean Platelet Volume 8.3 fL (7.4-10.4); Monocytes % 13.3 %; Neutrophils # 4.41 10^3/uL (1.8-7.7); Neutrophils % 57.4 %; Nucleated Red Blood Cells % 0 %; Platelet Count 314 10^3/cmm (157-399); Red Blood Count 3.04 10^6/uL (3.85-5.65); Red Cell Distribution Width 17.1 % (12.1-15.1); White Blood Count 7.67 10^3/uL (3.29-11.43)
[2023-08-07 06:00] VITALS: BMI 64.7
[2023-08-07 06:10] LABS: Magnesium 2.2 mg/dL (1.7-2.3)
[2023-08-07 06:12] LABS: Blood Urea Nitrogen 34 mg/dL (8-23); Calcium 8.7 mg/dL (8.5-10.5); Carbon Dioxide 25 mmol/L (22-29); Chloride 103 mmol/L (98-107); Glomerular Filtration Rate 38.1 mL/min (90-130); Glucose 132 mg/dL (65-115); Osmolality Calculated 293 mOsm/kg (285-295); Sodium 137 mmol/L (136-145)
[2023-08-07 06:14] LABS: Anion Gap 13.6 (5-19); Potassium 4.6 mmol/L (3.5-5.1)
[2023-08-07 06:38] LABS: Glucose Point of Care 125 mg/dL (70-110)
--- NOTE | 2023-08-07 07:13 | PM.PN ---
Subjective Subjective: Patient seen at bedside this morning. Resting comfortably. PICC line placed. No overnight events. Vitals/I&O/Wt Last Vital Signs Temp 98.5 F 08/07/23 03:28 Pulse 50 L 08/07/23 03:28 Resp 18 08/07/23 03:28 BP 153/72 08/07/23 03:28 Pulse Ox 97 08/07/23 03:28 O2 Del Method CPAP 08/07/23 03:28 08/06/23 08/07/23 08/07/23 22:59 06:59 14:59 Intake Total 590 / 1360 350 / 1710 Output Total 350 / 350 450 / 800 Balance 240 / 1010 -100 / 910 Weight last 48 hrs Weight 504 lb 11.2 oz Weight 504 lb 11.2 oz Weight 501 lb 11.2 oz Physical Exam Narrative: GENERAL: A&O x 3 VASCULAR: DP/PT pulses palpable 2/4 with CFT intact, <3seconds to distal digits DERMATOLOGICAL: Bilateral dressings intact, clean and dry. No strikethrough noted. MUSCULOSKELETAL: Partial fifth ray resection right foot. Tenderness with palpation of posterior left leg wound NEUROLOGICAL: Neurological sensation to the affected foot and ankle is absent to the level of the mid leg bilaterally IMAGING: Three-view x-rays bilateral ankles, 2 view x-rays bilateral feet show right foot partial fifth ray resection with osteomyelitis present at the resection site. Periosteal reaction to fourth metatarsal head consistent with osteomyelitis. No subcutaneous emphysema noted. Left foot shows partial fifth metatarsal resection. No subcutaneous emphysema noted. Data 08/07/23 05:19 08/07/23 05:19 Micro: Microbiology 07/31/23 13:56 Blood Culture - Final Blood 07/31/23 13:51 Blood Culture - Final Blood 08/01/23 07:55 Gram Stain - Final Foot - #1 Tissue Culture - Final Klebsiella pneumonia esbl Morganella morganii Providencia stuartii Methicillin Resis Staph Aureus 08/01/23 07:50 Gram Stain - Final Bone Tissue Culture - Final Proteus mirabilis esbl A&P Assessment and plan (1) Ulcer of foot with necrosis of bone: (2) Venous stasis ulcer: (3) Diabetes mellitus, type II: (4) Edema: (5) Osteomyelitis: Plan -Multiple ulcerations to bilateral lower extremities. Clinical osteomyelitis to right foot fourth and fifth metatarsals and left calcaneus -Labs and vitals reviewed -WBC 7.67 -ESR 56 -CRP 110 -VSS -Cultures: Right foot: Proteus mirabilis esbl Left heel: Klebsiella ESBL, Morganella, Providencia, MRSA -Abx: linezolid/meropenem -Diet: Okay for diet from podiatry standpoint -Status post bilateral lower extremity wound debridement (08/01/2023) -No further surgical intervention by podiatry during this admission -Pain Mgmt: Per primary -Weight bearing: Weightbearing as tolerated for transfers only -Dressings: Left leg and heel wound to be dressed daily using Santyl, Adaptic, 4 x 4 gauze, Kerlix, Mike compression to the level of the knee. Right foot dressing to be changed twice daily with Betadine wet-to-dry. -Continue current Abx therapy. Patient will need long-term IV antibiotics -Trend labs -Discharge plan: Patient will likely need placement in SNF upon discharge from the hospital. Given clinical findings of osteomyelitis he will need PICC line placed and will require IV antibiotic therapy long-term. Lower extremity edema is driving force of patient's chronic ulcerations to the legs. Recommend Juzo compression wraps upon discharge if possible to help control edema. Patient would benefit from Prevalon boot to left lower extremity to offload stage IV decubitus heel ulcer. -Awaiting placement. Patient is okay to discharge from podiatry standpoint Attestations Medical Necessity Statement*: Awaiting placement Coding Level of Care Code Acute Code for [facility] Diagnoses Ulcer of foot with necrosis of bone L97.504 Venous stasis ulcer I83.009; L97.909 Diabetes mellitus, type II E11.9 Edema R60.9 Osteomyelitis M86.9
[2023-08-07 08:26] VITALS: BP 168/72; PULSE 55; RESP 18; TEMP 36.4; O2SAT 94
[2023-08-07] MEDS: meropenem 1,000 MG in sodium chloride 0.9% (plus) 50 ML 100 MG IV ×2 (08:59)
[2023-08-07 09:00] VITALS: RESP 16
[2023-08-07] MEDS: pantoprazole DR 40 mg Tablet PO (09:00)
[2023-08-07] MEDS: metoprolol tartrate 25 mg Tablet 12.5 MG PO (09:00)
[2023-08-07] MEDS: apixaban 5 mg Tablet 2.5 MG PO (09:00)
[2023-08-07] MEDS: ferrous sulfate EC 325 mg Tablet PO (09:00)
[2023-08-07] MEDS: oxyCODONE 5 mg IR Tab/Cap PO (09:00)
[2023-08-07] MEDS: insulin glargine 100 units/1 mL 40 UNIT SUBCUT (09:01)
[2023-08-07] MEDS: amiodarone 200 mg Tablet 100 MG PO (09:01)
[2023-08-07 11:42] LABS: Glucose Point of Care 167 mg/dL (70-110)
[2023-08-07 11:51] VITALS: BP 158/66; PULSE 68; RESP 16; TEMP 36.6; O2SAT 94
--- NOTE | 2023-08-07 12:26 | PC.SOCIAL ---
IMM Updated Updated pt on IMM. No questions voiced. Provided pt a copy. Initialed, dated, & timed copy in chart.
[2023-08-07 12:47] LABS: Creatine Phosphokinase 119 U/L (39-308)
[2023-08-07] MEDS: insulin lispro 100 unit/1 mL SUBCUT (13:10)
[2023-08-07] MEDS: acetaminophen 325 mg Tablet 650 MG PO (13:11)
--- NOTE | 2023-08-07 13:52 | P.DS_ITS ---
Discharge Providers Date of Admission: 07/31/23 12:43 Date of Discharge: August 07, 2023 Attending Provider at Admission: Colleen Clemente MD Attending Provider at Discharge: Carlitos Murray MD Consults: Podiatry: Dr. Mantilla ID: Dr. Vega Primary Care Provider: Benjamin Cardenas Diagnoses at Discharge Discharge Diagnosis (1) Ulcer of foot with necrosis of bone: Status: Acute (2) Venous stasis ulcer: Status: Acute (3) Diabetes mellitus, type II: Status: Chronic (4) Edema: Status: Acute (5) Osteomyelitis: Status: Chronic Reason for Visit Reason for Visit: pressure wounds Brief History: History as per HPI: Kenney Olea is a 67 year old male who presented to wound care clinic on the day of admission for routine follow-up. He has been followed at wound care clinic for quite a long time for chronic pressure wounds to his lower extremities. Despite regular wound care, he has had worsening of the wounds to both the right foot and the left calf over the last couple of weeks. Multiple wounds have developed areas of necrosis. He underwent some debridement and wound care clinic but after evaluation it was felt he needed further intervention under anesthesia by podiatry. Wounds were measured, photographed and cultured in the wound care clinic. He has had general malaise, increased drainage from the wounds, pain that can be difficult to control at times. He has been taking oxycodone but does not feel like it does much. No report of any fevers. He is on chronic anticoagulation. No increase in bleeding recently. Has not had any GI symptoms, urinary symptoms, sore throat or difficulty breathing. His nose always runs a little bit. He has had a little bit of a productive cough. He has been using his CPAP regularly. Unsure of his home settings. Breathing is at his baseline. He has a longstanding abdominal wall hernia that is reducible. He has had a little bit more swelling in his lower extremities than usual. He Has a prescription for torsemide but does not take it regularly. After discussing management options with Dr. Williamson he agreed to be directly admitted to the hospital for further evaluation and appropriate intervention. He is willing to consider facility where he can receive ongoing wound care at discharge and felt necessary. He lives alone. Hospital Course Hospital Course Patient was admitted to the hospital further evaluation and management of pressure injury to bilateral feet with concerns for acute on chronic osteomyelitis. Podiatry was consulted and he was started on broad-spectrum antibiotics. He underwent incision of bone cortex of right foot, excisional debridement of left leg and foot with operative findings concerning for osteoporotic changes of posterior left calcaneus as well as fourth and fifth metatarsal of the right foot. During hospitalization the wound cultures grew MRSA, ESBL Proteus, Morganella along with Providencia. Infectious disease was consulted for tapering of antibiotics as per multiple MDRO bacteria's. He was transitioned over to IV or ertapenem and daptomycin daily with advice for weekly CBC, creatinine LFT and CPK along with CRP which will be followed up in ID clinic. Safe discharge plan were discussed in detail with the patient for aggressive IV antibiotic and wound care. Patient was agreeable to SNF placement. Because of body habitus, morbid obesity and noncompliance patient is at a higher risk of failure to treatment and recurrent admissions. Physical Exam Const: COMMON NORMALS: patient oriented x3 and alert GENERAL APPEARANCE: cooperative NUTRITIONAL APPEARANCE: obese morbidly obese ORIENTATION/CONSCIOUSNESS: Yes awake HENMT: COMMON NORMALS: oropharynx normal Neck/C-Spine: COMMON NORMALS: no JVD Resp: COMMON NORMALS: normal respiratory effort and clear to auscultation bilaterally AUSCULTATION: clear to auscultation bilaterally Cardio: COMMON NORMALS: no JVD, regular rhythm, S1 normal heart sound present, S2 normal heart sound present and No murmurs present (Cardio) RHYTHM: regular rhythm HEART SOUNDS: S1 normal heart sound present and S2 normal heart sound present GI: COMMON NORMALS: Normal to inspection, nondistended, normoactive bowel sounds present, Soft to palpation and non-tender PALPATION: Yes Soft to palpation Extremity: COMMON NORMALS: no joint enlargement and no pedal edema NARRATI VE EXTREMITY EXAM: Lower extremities with possibly trace edema, wrapped in postoperative dressing below the knees.No bleeding or strikethrough at this time. Neuro: COMMON NORMALS: patient oriented x3 and moves all extremities SENSORIUM/ORIENTATION: Yes alert Skin: OTHER: Slowly improving maculopapular patches over rash over forearms, armpits and flanks, chest. Discharge Data Studies Completed and Pending Completed Studies During Hospitalization Category Date Time Status CXRP [XR chest 1V portable [id number]] Routine Exams 08/01/23 13:31 Completed XR ankle LT 2V [id number] Routine Exams 07/31/23 14:10 Completed XR ankle RT 2V [id number] Routine Exams 07/31/23 14:10 Completed XR foot LT 2V [id number] Routine Exams 07/31/23 14:10 Completed XR foot RT 2V [id number] Routine Exams 07/31/23 14:10 Completed XR tibia fibula LT 2V [id number] Routine Exams 07/31/23 14:10 Completed XR tibia fibula RT 2V [id number] Routine Exams 07/31/23 14:10 Completed Blood Cultures ([facility]) Routine Lab 07/31/23 13:51 Completed Blood Cultures ([facility]) Routine Lab 07/31/23 13:56 Completed Pending at discharge Category Date Time Status Basic Metabolic Panel AM LABS Lab 08/08/23 04:00 Ordered Basic Metabolic Panel AM LABS Lab 08/09/23 04:00 Ordered Clostridium Difficile PCR Routine Lab 08/06/23 14:05 Received Complete Blood Count w/Auto AM LABS Lab 08/08/23 04:00 Ordered Complete Blood Count w/Auto AM LABS Lab 08/09/23 04:00 Ordered Radiology Impressions Ankle X-Ray 07/31/23 14:10 IMPRESSION: No acute osseous abnormality. Foot X-Ray 07/31/23 14:10 IMPRESSION: Marked soft tissue swelling. Possible osteomyelitis. Tibia/Fibula X-Ray 07/31/23 14:10 IMPRESSION: No acute findings. Microbiology 07/31/23 13:56 Blood Blood Culture - Final 07/31/23 13:51 Blood Blood Culture - Final 08/01/23 07:55 Foot - #1 Gram Stain - Final 08/01/23 07:55 Foot - #1 Tissue Culture - Final Klebsiella pneumonia esbl Morganella morganii Providencia stuartii Methicillin Resis Staph Aureus 08/01/23 07:50 Bone Gram Stain - Final 08/01/23 07:50 Bone Tissue Culture - Final Proteus mirabilis esbl Laboratory Results WBC 7.67 10^3/uL (3.29-11.43) 08/07/23 05:19 RBC 3.04 10^6/uL (3.85-5.65) L 08/07/23 05:19 Hgb 7.90 g/dL (11.27-16.99) L 08/07/23 05:19 Hct 27.1 % (37-53) L 08/07/23 05:19 MCV 89.1 fl (82-101) 08/07/23 05:19 MCH 26.0 pg (27-33) L 08/07/23 05:19 MCHC 29.2 g/dL (30-55) L 08/07/23 05:19 RDW 17.1 % (12.1-15.1) H 08/07/23 05:19 Plt Count 314 10^3/cmm (157-399) 08/07/23 05:19 MPV 8.3 fL (7.4-10.4) 08/07/23 05:19 Neut % (Auto) 57.4 % 08/07/23 05:19 Lymph % (Auto) 23.1 % 08/07/23 05:19 Starke % (Auto) 13.3 % 08/07/23 05:19 Eos % (Auto) 3.9 % 08/07/23 05:19 Baso % (Auto) 0.7 % 08/07/23 05:19 Neut # (Auto) 4.41 10^3/uL (1.8-7.7) 08/07/23 05:19 Lymph # (Auto) 1.8 10^3/uL (0.8-4.8) 08/07/23 05:19 Starke # (Auto) 1.0 10^3/uL (0.2-0.9) H 08/07/23 05:19 Eos # (Auto) 0.3 10^3/uL (0.0-0.8) 08/07/23 05:19 Baso # (Auto) 0.1 10^3/uL (0.0-0.1) 08/07/23 05:19 Nucleated RBC % (auto) 0 % 08/07/23 05:19 Nucleated RBCs # 0.0 /100WBC 08/07/23 05:19 ESR 56 mm/hr (0-10) H 07/31/23 13:51 Sodium 137 mmol/L (136-145) 08/07/23 05:19 Potassium 4.6 mmol/L (3.5-5.1) 08/07/23 05:19 Chloride 103 mmol/L (98-107) 08/07/23 05:19 Carbon Dioxide 25 mmol/L (22-29) 08/07/23 05:19 Anion Gap 13.6 (5-19) 08/07/23 05:19 BUN 34 mg/dL (8-23) H 08/07/23 05:19 Creatinine 1.8 mg/dL (0.7-1.2) H 08/07/23 05:19 GFR Calculation 38.1 mL/min (90-130) L 08/07/23 05:19 Glucose 132 mg/dL (65-115) H 08/07/23 05:19 POC Glucose 167 mg/dL (70-110) H 08/07/23 11:12 Estimat Average Glucose 189 07/31/23 13:51 Hemoglobin A1c 8.2 % (4.0-6.0) H 07/31/23 13:51 Calculated Osmolality 293 mOsm/kg (285-295) 08/07/23 05:19 Calcium 8.7 mg/dL (8.5-10.5) 08/07/23 05:19 Phosphorus 3.5 mg/dL (2.5-4.5) 07/31/23 13:51 Magnesium 2.2 mg/dL (1.7-2.3) 08/07/23 05:19 Iron 30 ug/dL (59-158) L 08/01/23 03:30 TIBC 212 mcg/dl 08/01/23 03:30 % Saturation 14.1 % (20-50) L 08/01/23 03:30 Unsat Iron Binding 182 ug/dL (112-347) 08/01/23 03:30 Total Bilirubin 0.2 mg/dL (0.15-1.2) 08/03/23 04:02 AST 14 U/L (0-40) 08/03/23 04:02 ALT 9 U/L (0-41) 08/03/23 04:02 Alkaline Phosphatase 60 U/L (40-130) 08/03/23 04:02 Creatine Kinase 119 U/L (39-308) 08/07/23 05:19 C-Reactive Protein 110.7 mg/L (0.0-4.9) H 07/31/23 13:51 Total Protein 7.2 g/dL (6.6-8.7) 08/03/23 04:02 Albumin 3.1 g/dL (3.5-5.2) L 08/03/23 04:02 Globulin 4.1 g/dL (1.3-4.6) 08/03/23 04:02 Vancomycin Trough 29.4 ug/mL (10-15) H* 08/02/23 08:50 Vitals Last Vital Signs Temp 97.8 F 08/07/23 11:51 Pulse 68 08/07/23 11:51 Resp 16 08/07/23 11:51 BP 158/66 08/07/23 11:51 Pulse Ox 94 08/07/23 11:51 O2 Del Method Room Air 08/07/23 11:51 Discharge Plan Discharge Patient Disposition: Xfer SNF Condition: Stable Prescriptions: New metoprolol tartrate 25 mg Tablet 12.5 mg PO BID@0900,2100 30 Days Qty: 30 0RF Continued gabapentin 300 mg capsule 900 mg PO BEDTIME Eliquis 5 mg tablet 2.5 mg PO BID Hold Instructions: Resume on 05/12/22. Rx Instructions: Tales 2.5mg (half a tablet) twice per day ferrous sulfate 325 mg (65 mg iron) Tablet 325 mg PO QAM oxycodone-acetaminophen [Percocet] 5-325 mg tablet 1 tab PO Q4H PRN (Reason: pain) Qty: 30 0RF amiodarone 200 mg Tablet 200 mg PO QAM levothyroxine [Euthyrox] 50 mcg tablet 50 mcg PO QAM ondansetron 4 mg tablet,disintegrating 4 mg PO Q8H PRN (Reason: Nausea) acetaminophen 500 mg Tablet 1,000 mg PO Q6H PRN (Reason: Pain) sildenafil 50 mg tablet 50 - 100 mg PO BID PRN (Reason: Erectile Dysfunction) Ozempic 0.25 mg or 0.5 mg (2 mg/3 mL) pen injector 0.25 mg SUBCUT Q7D Rx Instructions: ON MONDAY Changed lisinopril 5 mg tablet 10 mg PO DAILY Qty: 60 0RF Lantus Solostar U-100 Insulin 100 unit/mL (3 mL) insulin pen 50 unit SUBCUT BID Qty: 15 0RF Discontinued metoprolol tartrate 25 mg tablet 25 mg PO QAM No Action lidocaine HCl [Lidocaine Viscous] 2 % solution 1 applic topical ONCE Qty: 1 0RF ertapenem 1 gram recon soln 1 g IV DAILY daptomycin in 0.9 % sod chlor 1,000 mg/100 mL piggyback 1,500 mg IV DAILY Rx Instructions: administer over 30 mins Discharge Orders: Discharge Order (Routine); Ordered 08/07/23 Ordered By: Carlitos Murray Referrals: [facility] [Outside] Discharge Diet: Cardiac and Diabetic Discharge Activity: Resume usual activity and Increase activity as tolerated Patient Instructions: Opioid Safety Activity Restrictions/Additional Instructions: Continue with IV ertapenem 1 g daily along with daptomycin 1600 mg daily for next 6 weeks. Patient will need weekly CBC, creatinine, LFT, CPK and CRP to be followed up in ID clinic. Continue with wound care at wound care clinic. Discharge Attestations Time Spent in Discharge Care*: greater than 30 min Specific Discharge Activities: educating patient, discussing with pcp/other providers, discussing with case management assistant/social workers/dc planners, documenting/other paperwork and evaluating patient/reviewing data Status at Discharge: Cognitive status at discharge: cognitively intact , Behavioral status at discharge: cooperative , Functional status at discharge: other assisted ambulation , Overall status at discharge: patient is progressing back to baseline Quality Metrics Clinical Quality Measures [ No reported AMI, CVA or VTE this stay] Coding Level of Care Code 59088 Total time (in minutes) for Discharge: 60 Diagnoses Ulcer of foot with necrosis of bone L97.504 Venous stasis ulcer I83.009; L97.909 Diabetes mellitus, type II E11.9 Edema R60.9 Osteomyelitis M86.9
[2023-08-07 13:54] LABS: Clostridium Difficile PCR NOT DETECTED (NOT DETECTED)
[2023-08-07] MEDS: collagenase oint 30 gm 1 APPLIC TOPICAL (14:01)
[2023-08-07] MEDS: ertapenem 1,000 MG in sodium chloride 0.9% (plus) 100 ML 200 MG IV (14:02)
[2023-08-07 15:01] LABS: SARS Covid-2 Antigen negative (Negative)
--- NOTE | 2023-08-07 16:33 | PC.NURSE ---
Midline removed per MD order. Tolerated well. Report called to Hal at [facility].
[2023-08-07 16:36] VITALS: BP 158/66; PULSE 68; RESP 16; TEMP 36.6; O2SAT 94
--- NOTE | 2023-08-07 16:56 | PM.CONSULT ---
Providers/Reason For Consult Consulting Physician/Specialty*: Moira Vega MD/ Infectious Disease Reason for Consult*: Osteomyelitis Requesting Physician: Carlitos Murray MD Attending Physician: Carlitos Murray MD Primary Care Provider: Benjamin Cardenas History of Present Illness History of Present Illness Kenney Olea is a 67 year old male with PMH DM, HTN, CKD, Venous stasis and reflux with a h/o multiple LE wounds since 2018. Additionally he has a right gluteal ulcer since 2021 with perirectal abscess in 08/2022 for which he needed inpatient treatment. He follows closely with the wound care clinic however recently was unable to do so because of inclement weathe with missed appts for > 2 weeks. Unfortunately his wounds regressed as a result. Additionally since July his debridements needed to be made less aggressive due to significant bleeding at debridement from having been started on eliquis for A fib. He was noted to have an exposed 5th metatarsal head at most recent [facility] follow up. He was admitted for surgical debridement and iv abx. He was diagnosed with Osteomyelitis right fourth and fifth metatarsals, osteomyelitis left posterior calcaneus. He underwent incision bone cortex right foot with removal nonviable tissue and bone, excisional debridement down to level of bone left heel. Excisional debridement down to level of fascia left posterior leg on 08/07/23. Culture was polymicrobial as noted below. He has been on treatment with meropenem and vancomycin ; the latter was changed to linezolid due to concernf or drug allergy with vancomycin - maculopapular diffuse rash. Currently the rash is improving. Review of Systems General: Reports: 10 or more systems reviewed and unremarkable except in HPI and below Const: Denies: fever(s), chills or body aches Eyes: Denies: change in vision, blurry vision or photophobia ENMT: Reports: hoarseness; Denies: throat pain, enlarged tonsils, odynophagia or nasal congestion Card: Denies: chest pain, palpitations, irregular heart rhythm, edema, swelling of feet/ankles, lightheadedness, pre-syncope, dyspnea on exertion or orthopnea Resp: Denies: dyspnea, productive cough, non-productive cough, wheezing, stridor, pain on inspiration, change in phlegm color, hemoptysis or chest congestion GI: Denies: abdominal pain, nausea, vomiting, hematemesis, coffee ground emesis, dysphagia, heartburn, diarrhea, constipation, GI cramping, change in stool character, hematochezia or melena : Denies: flank pain, dysuria, urinary frequency, urinary urgency, urinary hesitancy or hematuria Musc: Denies: neck pain, back pain, extremity pain, joint swelling, joint warmth or deformity Neuro: Denies: headache(s), numbness in extremities, weakness in extremities, sensory changes, difficulty walking, frequent falls, dizziness, vertigo, behavioral changes, Slurred speech present or seizure-like activity Psych: Denies: anxiety, depression, suicidal ideation or homicidal ideation Endo: Denies: polyuria, polydipsia, tired all the time, cold intolerance or hot flashes Leonardo/Lymph: Denies: easy bruising or easy bleeding Medications/Allergies Home Medications Medication Instructions Recorded Confirmed Last Taken Type apixaban 5 mg tablet (Eliquis) 2.5 mg PO BID 07/15/20 08/15/23 07/31/23 History gabapentin 300 mg capsule 900 mg PO BEDTIME 07/15/20 08/15/23 07/30/23 History ferrous sulfate 325 mg (65 mg 325 mg PO QAM 12/09/20 08/15/23 07/30/23 History iron) tablet amiodarone 200 mg tablet 200 mg PO QAM 12/24/21 08/15/23 07/31/23 History levothyroxine 50 mcg tablet 50 mcg PO QAM 05/05/22 08/15/23 07/31/23 History (Euthyrox) acetaminophen 500 mg tablet 1,000 mg PO Q6H PRN Pain 08/10/22 08/15/23 Unknown History ondansetron 4 mg disintegrating 4 mg PO Q8H PRN Nausea 08/10/22 08/15/23 Unknown History tablet oxycodone-acetaminophen 5 mg-325 1 tab PO Q4H PRN pain #30 tabs 05/03/23 08/15/23 Unknown Rx mg tablet (Percocet) semaglutide 0.25 mg or 0.5 mg (2 0.25 mg SUBCUT Q7D 07/31/23 08/15/23 07/25/23 History mg/3 mL) subcutaneous pen injector (Ozempic) sildenafil 50 mg tablet 50 - 100 mg PO BID PRN Erectile 07/31/23 08/15/23 Unknown History Dysfunction insulin glargine 100 unit/mL (3 50 unit (0.5 mL) SUBCUT BID #15 mL 08/07/23 08/15/23 07/31/23 Rx mL) subcutaneous pen (Lantus Solostar U-100 Insulin) lisinopril 5 mg tablet 10 mg (2 x 5 mg) PO DAILY #60 tabs 08/07/23 08/15/23 07/31/23 Rx metoprolol tartrate 25 mg tablet 12.5 mg (1/2 x 25 mg) PO 08/07/23 08/15/23 Unknown Rx BID@0900,2100 30 days #30 tabs daptomycin 1,000 mg/100 mL in 0.9 1,500 mg IV DAILY 08/08/23 08/15/23 Unknown History % sodium chlor intravenous piggyback ertapenem 1 gram intravenous 1 g IV DAILY 08/08/23 08/15/23 Unknown History solution Allergies Allergy/AdvReac Type Severity Reaction Status Date / Time vancomycin Allergy ALGY-Redness Verified 08/15/23 15:13 of Skin aspirin AdvReac Mild ADR-Vomitin Verified 08/15/23 15:13 g vancomycin Allergy Intermediate ALGY-Rash Uncoded 08/15/23 15:13 Victoza AdvReac Severe ADR-Vomitin Uncoded 08/15/23 15:13 g PFSH Acute PFSH: Medical History Hypothyroidism Erectile dysfunction Ventral hernia CKD (chronic kidney disease) Sleep apnea Osteoarthritis Iron deficiency anemia Diabetes Perirectal abscess Non-ST elevation [place] (NSTEMI) Pulmonary embolism History of osteomyelitis Hx of low back pain Hx of hyperlipidemia HTN (hypertension) CHF (congestive heart failure) Atrial fibrillation PVD (peripheral vascular disease) History of end stage renal disease Was on hemodialysis for a period of time a but was able to come off of routine hemodialysis treatment with stable renal function Morbid obesity Surgical History 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 History of incision and drainage for perirectal abscess, several times in 2021, developed sinus track History of hemicolectomy Due to diverticulitis History of surgery on arm Family History Denies family history of Anesthesia complication Social History Smoking and tobacco/nicotine status: never used tobacco/nicotine Alcohol intake: never Substance/Drug Use: never Housing: Correction Vitals/I&O/Wt Last Vital Signs Temp 97.8 F 08/07/23 16:36 Pulse 68 08/07/23 16:36 Resp 16 08/07/23 16:36 BP 158/66 08/07/23 16:36 Pulse Ox 94 08/07/23 16:36 O2 Del Method Room Air 08/07/23 11:51 08/07/23 08/07/23 08/07/23 06:59 14:59 22:59 Intake Total 350 / 1710 250 / 250 Output Total 450 / 800 Balance -100 / 910 250 / 250 Weight last 48 hrs Weight 228.928 kg Weight 228.928 kg Weight 227.567 kg Physical Exam Narrative: General: No acute distress, AO x3 HEENT: PERRLA, pupils bilaterally equal and reactive, pallors not present Chest: Normal vesicular breath sounds, no added sounds, equal good air entry bilaterally CVS: S1-S2 regular, no murmurs, no tachycardia, no gallops, no rubs Abdomen: Soft, nontender, no organomegaly, bowel sounds present Neuro: No focal deficits, no facial deformity, AO x3, power 5/5 in all limbs Data 08/07/23 05:19 08/07/23 05:19 Micro: Microbiology 07/31/23 13:56 Blood Culture - Final Blood 07/31/23 13:51 Blood Culture - Final Blood 08/01/23 07:55 Gram Stain - Final Foot - #1 Tissue Culture - Final Klebsiella pneumonia esbl Morganella morganii Providencia stuartii Methicillin Resis Staph Aureus 08/01/23 07:50 Gram Stain - Final Bone Tissue Culture - Final Proteus mirabilis esbl Spec #: [id number] Cirilo: 08/01/23-0755 Status: COMP Req #: [id number] Recd: 08/01/23-[address]: Hayder Zuluaga DPLeonid Src: Foot SpDesc: #1 Ordered: Tissue Cult GS Comments: Comment left heel Procedure Result Verified Site Gram Stain Final 08/01/23-1444 Result FEW WHITE BLOOD CELLS HEAVY GRAM POSITIVE RODS HEAVY GRAM NEGATIVE RODS MODERATE GRAM POSITIVE COCCI IN PAIRS Tissue Culture Final 08/06/23-1542 Organism 1 Klebsiella pneumonia esbl Growth HEAVY Organism 2 Morganella morganii Growth HEAVY Organism 3 Providencia stuartii Growth HEAVY Organism 4 Methicillin Resis Staph Aureus Growth MODERATE DAY 4 CRITICAL RESULT YES/NO: YES CRITICAL CALLED BY: RT TO AND READ BACK BY: ASPEN DATE: 08/05/23 TIME: 114 Klepnesbl M morganii P stuartii M.I.C. RX M.I.C. RX M.I.C. RX --------- ------ --------- ------ --------- ------ * Amikacin <=16 S <=16 S <=16 S * Amoxicillin/Clavulanate <=8/4 S >16/8 R >16/8 R * Ampicillin >16 R >16 R >16 R * Ampicillin/Sulbactam 16/8 I >16/8 R >16/8 R * Aztreonam >16 R >16 R <=4 S * Cefepime >16 R <=8 S <=8 S * Ceftriaxone >32 R <=1 S <=1 S * Cefuroxime >16 R >16 R >16 R * Ciprofloxacin 2 I <=1 S >2 R * Clindamycin * Erythromycin * Gentamicin <=2 S <=2 S 8 R * Imipenem <=1 S 8 R 2 I * Levofloxacin <=2 S <=2 S >4 R * Linezolid * Oxacillin * Penicillin * Rifampin * Tetracycline <=4 S >8 R >8 R * Tobramycin 8 R * Trimethoprim/Sulfamethoxazole >2/38 R <=2/38 S <=2/38 S Vancomycin * Piperacillin/Tazobactam <=16 S <=16 S <=16 S Daptomycin MRSA M.I.C. RX --------- ------ * Amikacin * Amoxicillin/Clavulanate * Ampicillin >8 R * Ampicillin/Sulbactam * Aztreonam * Cefepime * Ceftriaxone * Cefuroxime * Ciprofloxacin >2 R * Clindamycin >4 R * Erythromycin >4 R * Gentamicin <=4 S * Imipenem * Levofloxacin >4 R * Linezolid 4 S * Oxacillin >2 R * Penicillin >8 R * Rifampin <=1 S * Tetracycline >8 R * Tobramycin * Trimethoprim/Sulfamethoxazole <=0.5/9.5 S Vancomycin 2 S * Piperacillin/Tazobactam Daptomycin 1 S Tissue Culture Preliminary (changed) 08/05/23-1142 Organism 1 Klebsiella pneumonia esbl Growth HEAVY Organism 2 Morganella morganii Growth HEAVY Organism 3 Providencia stuartii Growth HEAVY Organism 4 Methicillin Resis Staph Aureus Growth MODERATE DAY 4 CRITICAL RESULT YES/NO: YES CRITICAL CALLED BY: RT TO AND READ BACK BY: ASPEN DATE: 08/05/23 TIME: 114 Klepnesbl M morganii P stuartii M.I.C. RX M.I.C. RX M.I.C. RX --------- ------ --------- ------ --------- ------ * Amikacin <=16 S <=16 S <=16 S * Amoxicillin/Clavulanate <=8/4 S >16/8 R >16/8 R * Ampicillin >16 R >16 R >16 R * Ampicillin/Sulbactam 16/8 I >16/8 R >16/8 R * Aztreonam >16 R >16 R <=4 S * Cefepime >16 R <=8 S <=8 S * Ceftriaxone >32 R <=1 S <=1 S * Cefuroxime >16 R >16 R >16 R * Ciprofloxacin 2 I <=1 S >2 R * Clindamycin * Erythromycin * Gentamicin <=2 S <=2 S 8 R * Imipenem <=1 S 8 R 2 I * Levofloxacin <=2 S <=2 S >4 R * Linezolid * Oxacillin * Penicillin * Rifampin * Tetracycline <=4 S >8 R >8 R * Tobramycin 8 R * Trimethoprim/Sulfamethoxazole >2/38 R <=2/38 S <=2/38 S Vancomycin * Piperacillin/Tazobactam <=16 S <=16 S <=16 S Daptomycin MRSA M.I.C. RX --------- ------ * Amikacin * Amoxicillin/Clavulanate * Ampicillin >8 R * Ampicillin/Sulbactam * Aztreonam * Cefepime * Ceftriaxone * Cefuroxime * Ciprofloxacin >2 R * Clindamycin >4 R * Erythromycin >4 R * Gentamicin <=4 S * Imipenem * Levofloxacin >4 R * Linezolid 4 S * Oxacillin >2 R * Penicillin >8 R * Rifampin <=1 S * Tetracycline >8 R * Tobramycin * Trimethoprim/Sulfamethoxazole <=0.5/9.5 S Vancomycin 2 S * Piperacillin/Tazobactam Daptomycin 1 S Tissue Culture Preliminary (changed) 08/04/23-1633 Organism 1 Klebsiella pneumonia esbl Growth HEAVY Organism 2 Morganella morganii Growth HEAVY Organism 3 Providencia stuartii Growth HEAVY Organism 4 Coag positive Staphylococcus DAY 3, RESULTS TO FOLLOW Facundo Jaquez morganii P stuartii M.I.C. RX M.I.C. RX M.I.C. RX --------- ------ --------- ------ --------- ------ * Amikacin <=16 S <=16 S <=16 S * Amoxicillin/Clavulanate <=8/4 S >16/8 R >16/8 R * Ampicillin >16 R >16 R >16 R * Ampicillin/Sulbactam 16/8 I >16/8 R >16/8 R * Aztreonam >16 R >16 R <=4 S * Cefepime >16 R <=8 S <=8 S * Ceftriaxone >32 R <=1 S <=1 S * Cefuroxime >16 R >16 R >16 R * Ciprofloxacin 2 I <=1 S >2 R * Gentamicin <=2 S <=2 S 8 R * Imipenem <=1 S 8 R 2 I * Levofloxacin <=2 S <=2 S >4 R * Tetracycline <=4 S >8 R >8 R * Tobramycin 8 R * Trimethoprim/Sulfamethoxazole >2/38 R <=2/38 S <=2/38 S * Piperacillin/Tazobactam <=16 S <=16 S <=16 S Tissue Culture Preliminary (changed) 08/04/23-1340 Organism 1 Gram Negative Rods Growth HEAVY Organism 2 Gram Negative Rods#2 Organism 3 Gram Negative Rods#3 Organism 4 Coag positive Staphylococcus DAY 3, RESULTS TO FOLLOW Tissue Culture Preliminary (changed) 08/03/23-180 Organism 1 Gram Negative Rods Growth HEAVY Organism 2 Gram Negative Rods#2 DAY 2, RESULTS TO FOLLOW Tissue Culture Preliminary (changed) 08/03/23-1800 Organism 1 Gram Negative Rods Growth HEAVY Organism 2 Gram Negative Rods#2 DAY 2, RESULTS TO FOLLOW Tissue Culture Preliminary (changed) 08/02/23-120 Organism 1 Gram Negative Rods Growth HEAVY DAY 1, RESULTS TO FOLLOW Spec #: [id number] Cirilo: 08/01/23 Status: COMP Req #: [id number] Recd: 08/01/[address]: Hayder Zuluaga DPLeonid Src: Bone SpDesc: Ordered: Tissue Cult GS Comments: Comment Right foot Procedure Result Verified Site Gram Stain Final 08/01/23-144 Result NO WHITE BLOOD CELLS SEEN NO ORGANISMS SEEN Tissue Culture Final 08/06/23-154 Organism 1 Proteus mirabilis esbl Growth HEAVY FEW MIXED SUPERFICIAL BEE ON DAY 3 Promiresb M.I.C. RX --------- ------ * Amikacin <=16 S * Amoxicillin/Clavulanate >16/8 R * Ampicillin >16 R * Ampicillin/Sulbactam >16/8 R * Aztreonam >16 R * Cefepime >16 R * Ceftriaxone >32 R * Cefuroxime >16 R * Ciprofloxacin >2 R * Gentamicin >8 R * Levofloxacin >4 R * Tetracycline >8 R * Tobramycin >8 R * Trimethoprim/Sulfamethoxazole >2/38 R * Piperacillin/Tazobactam <=16 S Tissue Culture Preliminary (changed) 08/03/23 Organism 1 Proteus mirabilis esbl Growth HEAVY DAY 2, RESULTS TO FOLLOW Promiresb M.I.C. RX --------- ------ * Amikacin <=16 S * Amoxicillin/Clavulanate >16/8 R * Ampicillin >16 R * Ampicillin/Sulbactam >16/8 R * Aztreonam >16 R * Cefepime >16 R * Ceftriaxone >32 R * Cefuroxime >16 R * Ciprofloxacin >2 R * Gentamicin >8 R * Levofloxacin >4 R * Tetracycline >8 R * Tobramycin >8 R * Trimethoprim/Sulfamethoxazole >2/38 R * Piperacillin/Tazobactam <=16 S Tissue Culture Preliminary (changed) 08/02/23-1157 Organism 1 Gram Negative Rods Growth FEW DAY 1, RESULTS TO FOLLOW Other data: Launch[employer] [address] [place] [address] XRay Report Signed Patient: Kenney Olea Unit #: [id number] : 1955 Age/Sex: 67 / M ADM Date: 07/31/23 Loc: [facility] Room/Bed: [facility] Attending Dr: Colleen Clemente MD Ordering Provider/Ordering MD: Colleen Clemente MD Date of Service: 07/31/23 Procedure(s): XR foot RT 2V 37516 Accession Number(s): [id number] Report Number: [id number] PROCEDURE INFORMATION: Exam: XR Right Foot Exam date and time: 07/31/2023 2:27 PM Age: 67 years old Clinical indication: Other: Necrotic wounds bottom of foot TECHNIQUE: Imaging protocol: Radiologic exam of the right foot. Views: 1 or 2 views. COMPARISON: CT foot RT w con [id number] 08/10/2022 5:32 PM FINDINGS: Bones/joints: A station of the 5th toe at the level of the distal junctional 3rd of the 5th metatarsal. At the resection site the 5th metatarsal has a fragmented appearance and infection may be present. There is marked soft tissue swelling along the ventral foot and a large soft tissue defect along the plantar foot. Calcaneal spurring. Diffuse demineralization. Soft tissues: Normal. XR/XR foot RT 2V [id number] IMPRESSION: Marked soft tissue swelling. Possible osteomyelitis. A&P Assessment and plan (1) Osteomyelitis: (2) Diabetic ulcer of right lower leg associated with diabetes mellitus due to underlying condition: (3) Cellulitis: Plan Patient presenting with osteomyelitis of the foot as a progression of diabetic foot ulcer. CT findings and cx results from debridement as above Currently on meropenem and linezolid possible allergy to vancomycin during this current admission Recommend discharge with Ertapenem 1g iv q24h + Daptomycin 8mg/kg every 24 hrs for next 6 weeks check baseline CPK PiCC line has been placed check weekly cbc, cr, LFT and CPK, CRP while on above regimen f/up ID clinic in 4-5 weeks Coding Level of Care Code Acute Code for [facility] Fw Diagnoses Osteomyelitis M86.9 Diabetic ulcer of right lower leg associated with diabetes mellitus due to underlying condition E08.622; L97.919 Cellulitis L03.90
== END 2023-08-07 16:36 | disposition skilled nursing facility (03) | DRG 623 ==
PROVIDERS: Internal Medicine; Podiatrist Foot & Ankle Surgery; Student in an Organized Health Care Education/Training Program; Admitting Provider Hospitalist; PCP Family Medicine; Visit Provider Student in an Organized Health Care Education/Training Program
PROC: 0JBM0ZZ Excision of Left Upper Leg Subcutaneous Tissue and Fascia, Open Approach (ICD-10-PCS; principal; 2023-08-01 07:00)
DX: E11.69 Type 2 diabetes mellitus with other specified complication (principal); E11.52 Type 2 diabetes mellitus with diabetic peripheral angiopathy with gangrene; I13.0 Hypertensive heart and chronic kidney disease with heart failure and stage 1 through stage 4 chronic kidney disease, or unspecified chronic kidney disease; M86.672 Other chronic osteomyelitis, left ankle and foot; M86.671 Other chronic osteomyelitis, right ankle and foot; I50.32 Chronic diastolic (congestive) heart failure; Z16.12 Extended spectrum beta lactamase (ESBL) resistance; Z68.44 Body mass index [BMI] 60.0-69.9, adult; I48.11 Longstanding persistent atrial fibrillation; E11.22 Type 2 diabetes mellitus with diabetic chronic kidney disease; N18.32 Chronic kidney disease, stage 3b; N17.9 Acute kidney failure, unspecified; E03.9 Hypothyroidism, unspecified; N52.9 Male erectile dysfunction, unspecified; M19.90 Unspecified osteoarthritis, unspecified site; G47.33 Obstructive sleep apnea (adult) (pediatric); E78.5 Hyperlipidemia, unspecified; R00.1 Bradycardia, unspecified; B95.62 Methicillin resistant Staphylococcus aureus infection as the cause of diseases classified elsewhere; B96.4 Proteus (mirabilis) (morganii) as the cause of diseases classified elsewhere; B96.1 Klebsiella pneumoniae [K. pneumoniae] as the cause of diseases classified elsewhere; L27.1 Localized skin eruption due to drugs and medicaments taken internally; T36.95XA Adverse effect of unspecified systemic antibiotic, initial encounter; D63.1 Anemia in chronic kidney disease; E66.01 Morbid (severe) obesity due to excess calories; Z11.52 Encounter for screening for COVID-19; Z79.85 Long-term (current) use of injectable non-insulin antidiabetic drugs; Z79.4 Long term (current) use of insulin; I25.2 Old myocardial infarction; Z86.711 Personal history of pulmonary embolism; Z89.422 Acquired absence of other left toe(s); Z89.421 Acquired absence of other right toe(s); Z79.01 Long term (current) use of anticoagulants
CPT/HCPCS: 11042; 11043; 11044; 11045; 11046; 11047; 36415; 36416; 36569; 36573; 36592; 71045; 73590; 73600; 73620; 80048; 80053; 80202; 82550; 82962; 83036; 83540; 83550; 83735; 84100; 85025; 85651; 86140; 87040; 87070; 87077; 87176; 87186; 87205; 87426; 87493; 96372; 97597; 97598; J0878; J1200; J1335; J1644; J1815; J1940; J2020; J2185; J2543; J2704; J3010; J3372; J3490; J7030

== ENCOUNTER → 2023-10-02 08:48 | Outpatient (BNVA) | payer MEDICARE, MEDICAID, SELFPAY | PROVIDERS: PCP Family Medicine; Visit Provider Nurse Practitioner Family | DX: E11.52 Type 2 diabetes mellitus with diabetic peripheral angiopathy with gangrene (principal); E11.621 Type 2 diabetes mellitus with foot ulcer; L97.422 Non-pressure chronic ulcer of left heel and midfoot with fat layer exposed; L97.512 Non-pressure chronic ulcer of other part of right foot with fat layer exposed; E11.622 Type 2 diabetes mellitus with other skin ulcer; L97.811 Non-pressure chronic ulcer of other part of right lower leg limited to breakdown of skin; L97.821 Non-pressure chronic ulcer of other part of left lower leg limited to breakdown of skin | CPT/HCPCS: 11042; 11045; 99213; A6252 ==

== ENCOUNTER → 2023-10-09 09:37 | Outpatient (BNVA) | payer MEDICARE, MEDICAID, SELFPAY | PROVIDERS: PCP Family Medicine; Visit Provider Nurse Practitioner Family | DX: E11.52 Type 2 diabetes mellitus with diabetic peripheral angiopathy with gangrene (principal); E11.621 Type 2 diabetes mellitus with foot ulcer; L97.422 Non-pressure chronic ulcer of left heel and midfoot with fat layer exposed; L97.512 Non-pressure chronic ulcer of other part of right foot with fat layer exposed; L97.511 Non-pressure chronic ulcer of other part of right foot limited to breakdown of skin; E11.622 Type 2 diabetes mellitus with other skin ulcer; L97.811 Non-pressure chronic ulcer of other part of right lower leg limited to breakdown of skin; L97.821 Non-pressure chronic ulcer of other part of left lower leg limited to breakdown of skin | CPT/HCPCS: 11042; 11045; A6197 ==

== ENCOUNTER → 2023-10-16 07:52 | Outpatient (BNVA) | payer MEDICARE, MEDICAID, SELFPAY | PROVIDERS: PCP Family Medicine; Visit Provider Nurse Practitioner Family | DX: E11.52 Type 2 diabetes mellitus with diabetic peripheral angiopathy with gangrene (principal); E11.621 Type 2 diabetes mellitus with foot ulcer; L89.623 Pressure ulcer of left heel, stage 3; L97.512 Non-pressure chronic ulcer of other part of right foot with fat layer exposed; L97.511 Non-pressure chronic ulcer of other part of right foot limited to breakdown of skin; E11.622 Type 2 diabetes mellitus with other skin ulcer; L97.811 Non-pressure chronic ulcer of other part of right lower leg limited to breakdown of skin; L97.821 Non-pressure chronic ulcer of other part of left lower leg limited to breakdown of skin | CPT/HCPCS: 11042; 97597; 97598; A6197; A6253 ==

== ENCOUNTER → 2023-10-23 07:53 | Outpatient (BNVA) | payer MEDICARE, MEDICAID, SELFPAY | PROVIDERS: PCP Family Medicine; Visit Provider Nurse Practitioner Family | DX: E11.52 Type 2 diabetes mellitus with diabetic peripheral angiopathy with gangrene (principal); E11.621 Type 2 diabetes mellitus with foot ulcer; L89.623 Pressure ulcer of left heel, stage 3; L97.511 Non-pressure chronic ulcer of other part of right foot limited to breakdown of skin; E11.622 Type 2 diabetes mellitus with other skin ulcer; L97.811 Non-pressure chronic ulcer of other part of right lower leg limited to breakdown of skin; L97.821 Non-pressure chronic ulcer of other part of left lower leg limited to breakdown of skin | CPT/HCPCS: 11042; 97597; 97598; A6021; A6253 ==

== ENCOUNTER → 2023-10-30 07:54 | Outpatient (BNVA) | payer MEDICARE, MEDICAID, SELFPAY | PROVIDERS: PCP Family Medicine; Visit Provider Nurse Practitioner Family | DX: E11.52 Type 2 diabetes mellitus with diabetic peripheral angiopathy with gangrene (principal); E11.621 Type 2 diabetes mellitus with foot ulcer; L89.623 Pressure ulcer of left heel, stage 3; L97.521 Non-pressure chronic ulcer of other part of left foot limited to breakdown of skin; E11.622 Type 2 diabetes mellitus with other skin ulcer; L97.811 Non-pressure chronic ulcer of other part of right lower leg limited to breakdown of skin; L97.821 Non-pressure chronic ulcer of other part of left lower leg limited to breakdown of skin; Z09 Encounter for follow-up examination after completed treatment for conditions other than malignant neoplasm; Z91.199 Patient's noncompliance with other medical treatment and regimen due to unspecified reason | CPT/HCPCS: 29581; A6197; A6252 ==

== ENCOUNTER → 2023-11-06 07:51 | Outpatient (BNVA) | payer MEDICARE, MEDICAID, SELFPAY | PROVIDERS: PCP Family Medicine; Visit Provider Nurse Practitioner Family | DX: E11.52 Type 2 diabetes mellitus with diabetic peripheral angiopathy with gangrene (principal); E11.621 Type 2 diabetes mellitus with foot ulcer; L89.623 Pressure ulcer of left heel, stage 3; L97.512 Non-pressure chronic ulcer of other part of right foot with fat layer exposed; E11.622 Type 2 diabetes mellitus with other skin ulcer; L97.821 Non-pressure chronic ulcer of other part of left lower leg limited to breakdown of skin; L97.811 Non-pressure chronic ulcer of other part of right lower leg limited to breakdown of skin; Z09 Encounter for follow-up examination after completed treatment for conditions other than malignant neoplasm | CPT/HCPCS: 11042; 11045; A6252 ==

== ENCOUNTER → 2023-11-13 07:50 | Outpatient (BNVA) | payer MEDICARE, MEDICAID, SELFPAY | PROVIDERS: PCP Family Medicine; Visit Provider Nurse Practitioner Family | DX: E11.52 Type 2 diabetes mellitus with diabetic peripheral angiopathy with gangrene (principal); E11.621 Type 2 diabetes mellitus with foot ulcer; L89.623 Pressure ulcer of left heel, stage 3; L97.516 Non-pressure chronic ulcer of other part of right foot with bone involvement without evidence of necrosis; E11.622 Type 2 diabetes mellitus with other skin ulcer; L97.821 Non-pressure chronic ulcer of other part of left lower leg limited to breakdown of skin; L97.811 Non-pressure chronic ulcer of other part of right lower leg limited to breakdown of skin | CPT/HCPCS: 11042; 11044; 11045; 97597; 97598; A6197; A6252; A6253 ==

== ENCOUNTER → 2023-11-20 07:58 | Outpatient (BNVA) | payer MEDICARE, MEDICAID, SELFPAY | PROVIDERS: PCP Family Medicine; Visit Provider Nurse Practitioner Family | DX: E11.52 Type 2 diabetes mellitus with diabetic peripheral angiopathy with gangrene (principal); E11.621 Type 2 diabetes mellitus with foot ulcer; L89.623 Pressure ulcer of left heel, stage 3; L97.516 Non-pressure chronic ulcer of other part of right foot with bone involvement without evidence of necrosis; E11.622 Type 2 diabetes mellitus with other skin ulcer; L97.821 Non-pressure chronic ulcer of other part of left lower leg limited to breakdown of skin; L97.811 Non-pressure chronic ulcer of other part of right lower leg limited to breakdown of skin | CPT/HCPCS: 11042; 11045; 97597; 97598 ==

== ENCOUNTER → 2023-11-28 07:47 | Outpatient (BNVA) | payer MEDICARE, MEDICAID, SELFPAY | PROVIDERS: PCP Family Medicine; Visit Provider Thoracic Surgery (Cardiothoracic Vascular Surgery) | DX: E11.52 Type 2 diabetes mellitus with diabetic peripheral angiopathy with gangrene (principal); E11.621 Type 2 diabetes mellitus with foot ulcer; L89.623 Pressure ulcer of left heel, stage 3; L97.516 Non-pressure chronic ulcer of other part of right foot with bone involvement without evidence of necrosis; E11.622 Type 2 diabetes mellitus with other skin ulcer; L97.811 Non-pressure chronic ulcer of other part of right lower leg limited to breakdown of skin; L97.821 Non-pressure chronic ulcer of other part of left lower leg limited to breakdown of skin | CPT/HCPCS: 11042; 11044; 11045; 87070; 87077; 87176; 87186; 87205; 97597; 97598; A6251; A6252; A6253 ==

== ENCOUNTER 2023-12-04 09:25 | Outpatient (CLI) | payer MEDICARE, MEDICAID, SELFPAY ==
--- NOTE | 2023-12-04 09:36 | XR_ITS ---
WS: [id number] XR foot RT min 3V* [id number] REASON FOR EXAM: E11.621 - Type 2 diabetes mellitus with foot ulcer FINDINGS: In comparison to the previous examination of 07/31/2023 there appears to have been osteotomy of the di stal fourth metatarsal and additional osteotomy of the remaining proximal portion of the fifth metata rsal. There is organized periosteal reaction around the remaining fourth metatarsal. There is rarefaction and indistinctness of the distal portion of the remaining fifth metatarsal. The remainder of the foot is unchanged compared to the previous examination with the exception of mod erately decreased bone density. XR/XR foot RT min 3V* [id number] IMPRESSION: Interval osteotomies of the fourth and fifth metatarsals. The appearance of the remaining fifth metatarsal is suspicious for osteomyeliti s.
[2023-12-04 09:50] LABS: Basophils # 0.1 10^3/uL (0.0-0.1); Eosinophils # 0.2 10^3/uL (0.0-0.8); Eosinophils % 2.5 %; Hematocrit 29.8 % (37-53); Lymphocytes # 1.8 10^3/uL (0.8-4.8); Lymphocytes % 21.9 %; Mean Corpuscular HGB Conc 29.9 g/dL (30-55); Mean Corpuscular Hemoglobin 27.6 pg (27-33); Mean Corpuscular Volume 92.3 fl (82-101); Mean Platelet Volume 8.2 fL (7.4-10.4); Monocytes # 0.9 10^3/uL (0.2-0.9); Monocytes % 10.7 %; Neutrophils # 4.98 10^3/uL (1.8-7.7); Neutrophils % 62.4 %; Nucleated Red Blood Cells % 0 %; Platelet Count 303 10^3/cmm (157-399); Red Blood Count 3.23 10^6/uL (3.85-5.65); Red Cell Distribution Width 15.4 % (12.1-15.1); White Blood Count 7.98 10^3/uL (3.29-11.43)
[2023-12-04 09:53] LABS: Erythrocyte Sedimentation Rate 62 mm/hr (0-10)
[2023-12-04 10:13] LABS: Anion Gap 14.7 (5-19); Blood Urea Nitrogen 29 mg/dL (8-23); C Reactive Protein 27.1 mg/L (0.0-4.9); Calcium 8.3 mg/dL (8.5-10.5); Carbon Dioxide 24 mmol/L (22-29); Chloride 102 mmol/L (98-107); Glomerular Filtration Rate 35.8 mL/min (90-130); Glucose 112 mg/dL (65-115); Osmolality Calculated 289 mOsm/kg (285-295); Potassium 4.7 mmol/L (3.5-5.1); Sodium 136 mmol/L (136-145)
== END 2023-12-04 09:26 | disposition home or self-care (01) ==
LOC: RAD 09:29
PROVIDERS: PCP Family Medicine; Visit Provider Thoracic Surgery (Cardiothoracic Vascular Surgery)
DX: E11.621 Type 2 diabetes mellitus with foot ulcer (principal); L97.509 Non-pressure chronic ulcer of other part of unspecified foot with unspecified severity; Z98.890 Other specified postprocedural states; M89.8X7 Other specified disorders of bone, ankle and foot; M85.872 Other specified disorders of bone density and structure, left ankle and foot
CPT/HCPCS: 11042; 11045; 36415; 73630; 80048; 85025; 85651; 86140; 97597; 97598; A6252; A6253

== ENCOUNTER 2023-12-11 09:19 | Outpatient (CLI) | payer MEDICARE, MEDICAID, SELFPAY ==
[2023-12-11 09:43] LABS: Basophils % 0.5 %; Eosinophils # 0.2 10^3/uL (0.0-0.8); Eosinophils % 2.6 %; Hematocrit 30.3 % (37-53); Lymphocytes # 1.5 10^3/uL (0.8-4.8); Lymphocytes % 18.3 %; Mean Corpuscular Hemoglobin 27.6 pg (27-33); Mean Corpuscular Volume 91.8 fl (82-101); Monocytes # 0.8 10^3/uL (0.2-0.9); Monocytes % 10.4 %; Neutrophils # 5.41 10^3/uL (1.8-7.7); Neutrophils % 66.8 %; Nucleated Red Blood Cells % 0 %; Platelet Count 274 10^3/cmm (157-399); Red Cell Distribution Width 15.4 % (12.1-15.1); White Blood Count 8.09 10^3/uL (3.29-11.43)
[2023-12-11 10:05] LABS: Alanine Aminotransferase 9 U/L (0-41); Albumin Level 3.8 g/dL (3.5-5.2); Alkaline Phosphatase 63 U/L (40-130); Anion Gap 15.5 (5-19); Aspartate Amino Transferase 9 U/L (0-40); Blood Urea Nitrogen 28 mg/dL (8-23); Calcium 8.7 mg/dL (8.5-10.5); Carbon Dioxide 25 mmol/L (22-29); Chloride 98 mmol/L (98-107); Globulin 3.8 g/dL (1.3-4.6); Glomerular Filtration Rate 38.1 mL/min (90-130); Glucose 128 mg/dL (65-115); Lipase 16 U/L (13-60); Osmolality Calculated 285 mOsm/kg (285-295); Potassium 4.5 mmol/L (3.5-5.1); Sodium 134 mmol/L (136-145); Total Bilirubin 0.2 mg/dL (0.15-1.2); Total Protein 7.6 g/dL (6.6-8.7)
[2023-12-11 10:54] LABS: Estmated Average Glucose 143; Hemoglobin A1C 6.6 % (4.0-6.0)
[2023-12-11 11:54] LABS: Free T4 Free Thyroxine 1.27 ng/dL (0.82-1.77)
== END 2023-12-11 09:20 | disposition home or self-care (01) ==
LOC: LAB 09:21
PROVIDERS: PCP Family Medicine; Visit Provider Nurse Practitioner Family
DX: M86.9 Osteomyelitis, unspecified (principal); I48.91 Unspecified atrial fibrillation; E11.52 Type 2 diabetes mellitus with diabetic peripheral angiopathy with gangrene; E11.621 Type 2 diabetes mellitus with foot ulcer; L89.623 Pressure ulcer of left heel, stage 3; L97.516 Non-pressure chronic ulcer of other part of right foot with bone involvement without evidence of necrosis; E11.622 Type 2 diabetes mellitus with other skin ulcer; L97.821 Non-pressure chronic ulcer of other part of left lower leg limited to breakdown of skin; L97.811 Non-pressure chronic ulcer of other part of right lower leg limited to breakdown of skin
CPT/HCPCS: 11042; 11044; 11045; 36415; 80053; 83036; 83690; 84439; 84481; 85025; 97597; 99212; A6252

== ENCOUNTER 2023-12-18 09:52 | Outpatient (CLI) | payer MEDICARE, MEDICAID, SELFPAY ==
[2023-12-18 10:27] LABS: Basophils # 0.1 10^3/uL (0.0-0.1); Basophils % 0.6 %; Eosinophils # 0.2 10^3/uL (0.0-0.8); Eosinophils % 2.1 %; Hematocrit 30.8 % (37-53); Lymphocytes # 1.6 10^3/uL (0.8-4.8); Lymphocytes % 20.7 %; Mean Corpuscular HGB Conc 30.2 g/dL (30-55); Mean Corpuscular Hemoglobin 27.5 pg (27-33); Mean Corpuscular Volume 91.1 fl (82-101); Mean Platelet Volume 7.8 fL (7.4-10.4); Monocytes # 0.7 10^3/uL (0.2-0.9); Monocytes % 9.4 %; Neutrophils # 5.13 10^3/uL (1.8-7.7); Neutrophils % 66.3 %; Nucleated Red Blood Cells % 0 %; Platelet Count 217 10^3/cmm (157-399); Red Blood Count 3.38 10^6/uL (3.85-5.65); Red Cell Distribution Width 15.9 % (12.1-15.1); White Blood Count 7.74 10^3/uL (3.29-11.43)
[2023-12-18 10:44] LABS: Alanine Aminotransferase 7 U/L (0-41); Albumin Level 3.7 g/dL (3.5-5.2); Alkaline Phosphatase 61 U/L (40-130); Anion Gap 13.6 (5-19); Aspartate Amino Transferase 8 U/L (0-40); Blood Urea Nitrogen 31 mg/dL (8-23); C Reactive Protein 28.9 mg/L (0.0-4.9); Calcium 8.9 mg/dL (8.5-10.5); Carbon Dioxide 25 mmol/L (22-29); Chloride 104 mmol/L (98-107); Globulin 3.9 g/dL (1.3-4.6); Glomerular Filtration Rate 37.9 mL/min (90-130); Glucose 147 mg/dL (65-115); Osmolality Calculated 295 mOsm/kg (285-295); Potassium 4.6 mmol/L (3.5-5.1); Sodium 138 mmol/L (136-145); Total Bilirubin 0.2 mg/dL (0.15-1.2); Total Protein 7.6 g/dL (6.6-8.7)
[2023-12-18 11:25] LABS: Erythrocyte Sedimentation Rate 69 mm/hr (0-10)
== END 2023-12-18 09:53 | disposition home or self-care (01) ==
LOC: LAB 09:55
PROVIDERS: PCP Family Medicine; Visit Provider Nurse Practitioner Family
DX: M86.9 Osteomyelitis, unspecified (principal)
CPT/HCPCS: 36415; 80053; 85025; 85651; 86140

== ENCOUNTER → 2023-12-25 07:45 | Outpatient (BNVA) | payer MEDICARE, MEDICAID, SELFPAY | PROVIDERS: PCP Family Medicine; Visit Provider Nurse Practitioner Family | DX: E11.52 Type 2 diabetes mellitus with diabetic peripheral angiopathy with gangrene (principal); E11.621 Type 2 diabetes mellitus with foot ulcer; L89.623 Pressure ulcer of left heel, stage 3; L97.514 Non-pressure chronic ulcer of other part of right foot with necrosis of bone; E11.622 Type 2 diabetes mellitus with other skin ulcer; L97.822 Non-pressure chronic ulcer of other part of left lower leg with fat layer exposed; L97.811 Non-pressure chronic ulcer of other part of right lower leg limited to breakdown of skin | CPT/HCPCS: 11042; 11044; 11045; 97597; 97598; A6253 ==

== ENCOUNTER 2024-01-01 10:21 | Outpatient (CLI) | payer MEDICARE, MEDICAID, SELFPAY ==
[2024-01-01 10:54] LABS: Basophils # 0.1 10^3/uL (0.0-0.1); Basophils % 0.5 %; Eosinophils # 0.1 10^3/uL (0.0-0.8); Eosinophils % 1.2 %; Hematocrit 26.5 % (37-53); Lymphocytes # 1.6 10^3/uL (0.8-4.8); Lymphocytes % 13.5 %; Mean Corpuscular HGB Conc 30.2 g/dL (30-55); Mean Corpuscular Volume 92.7 fl (82-101); Mean Platelet Volume 7.9 fL (7.4-10.4); Monocytes # 1.3 10^3/uL (0.2-0.9); Monocytes % 11.5 %; Neutrophils # 8.39 10^3/uL (1.8-7.7); Neutrophils % 72.3 %; Nucleated Red Blood Cells % 0 %; Platelet Count 185 10^3/cmm (157-399); Red Blood Count 2.86 10^6/uL (3.85-5.65); Red Cell Distribution Width 17.6 % (12.1-15.1); White Blood Count 11.61 10^3/uL (3.29-11.43)
[2024-01-01 11:12] LABS: Erythrocyte Sedimentation Rate 34 mm/hr (0-10)
[2024-01-01 11:21] LABS: Alanine Aminotransferase 7 U/L (0-41); Albumin Level 3.5 g/dL (3.5-5.2); Alkaline Phosphatase 48 U/L (40-130); Anion Gap 15.4 (5-19); Aspartate Amino Transferase 9 U/L (0-40); Blood Urea Nitrogen 26 mg/dL (8-23); C Reactive Protein 92.9 mg/L (0.0-4.9); Calcium 8.6 mg/dL (8.5-10.5); Carbon Dioxide 27 mmol/L (22-29); Chloride 100 mmol/L (98-107); Free T4 Free Thyroxine 1.24 ng/dL (0.82-1.77); Globulin 3.3 g/dL (1.3-4.6); Glomerular Filtration Rate 37.9 mL/min (90-130); Glucose 101 mg/dL (65-115); Lipase 9 U/L (13-60); Osmolality Calculated 291 mOsm/kg (285-295); Potassium 4.4 mmol/L (3.5-5.1); Sodium 138 mmol/L (136-145); Thyroid Stimulating Hormone 5.25 uIU/mL (0.27-4.20); Total Bilirubin 0.4 mg/dL (0.15-1.2); Total Protein 6.8 g/dL (6.6-8.7)
[2024-01-02 07:06] LABS: Amylase 15 U/L (21-101)
== END 2024-01-01 10:22 | disposition home or self-care (01) ==
LOC: LAB 10:35
PROVIDERS: PCP Family Medicine; Visit Provider Nurse Practitioner Family
DX: M86.9 Osteomyelitis, unspecified (principal)
CPT/HCPCS: 11042; 11044; 11045; 36415; 80053; 82150; 83690; 84439; 84443; 85025; 85651; 86140; 97597; 97598; A6197; A6237; A6250; A6251; A6252; A6253

== ENCOUNTER → 2024-01-08 07:51 | Outpatient (BNVA) | payer MEDICARE, MEDICAID, SELFPAY | PROVIDERS: PCP Family Medicine; Visit Provider Thoracic Surgery (Cardiothoracic Vascular Surgery) | DX: E11.52 Type 2 diabetes mellitus with diabetic peripheral angiopathy with gangrene (principal); E11.621 Type 2 diabetes mellitus with foot ulcer; L89.623 Pressure ulcer of left heel, stage 3; L97.516 Non-pressure chronic ulcer of other part of right foot with bone involvement without evidence of necrosis; L97.822 Non-pressure chronic ulcer of other part of left lower leg with fat layer exposed; L97.812 Non-pressure chronic ulcer of other part of right lower leg with fat layer exposed | CPT/HCPCS: 11042; 11045; 97597; 97598; 97605 ==

== ENCOUNTER → 2024-01-22 09:02 | Outpatient (BNVA) | payer MEDICARE, MEDICAID, SELFPAY | PROVIDERS: PCP Family Medicine; Visit Provider Thoracic Surgery (Cardiothoracic Vascular Surgery) | DX: E11.52 Type 2 diabetes mellitus with diabetic peripheral angiopathy with gangrene (principal); E11.621 Type 2 diabetes mellitus with foot ulcer; L89.623 Pressure ulcer of left heel, stage 3; L97.511 Non-pressure chronic ulcer of other part of right foot limited to breakdown of skin; L97.521 Non-pressure chronic ulcer of other part of left foot limited to breakdown of skin; E11.622 Type 2 diabetes mellitus with other skin ulcer; L97.811 Non-pressure chronic ulcer of other part of right lower leg limited to breakdown of skin; L97.821 Non-pressure chronic ulcer of other part of left lower leg limited to breakdown of skin | CPT/HCPCS: 97597; 97598 ==

== ENCOUNTER 2024-01-23 09:30 | Outpatient (CLI) | payer MEDICARE, MEDICAID, SELFPAY ==
--- NOTE | 2024-01-23 12:45 | USCV_ITS ---
Kenney Olea Age: 68 Gender: M : 1955 Exam Date: 01/23/2024 09:38 Ordering Phys: Frances Morris NP Technologist: Exam Location: [facility] [place] Indication: HISTORY: PROCEDURES: Bilateral duplex Venous Insufficiency study of the Deep and Superficial systems was carried out according to normal protocol with the patient in supine positon for deep system and dependent position for the superficial system. FINDINGS: All deep veins demonstrated compressibility without evidence of intraluminal thrombus or increased echogenicity. Spectral analysis of Doppler signals demonstrates normal response to compression maneuvers indicating patency without obstruction. Reflux determinations were made with the patient in the dependent position, the weight being on the contralateral leg. No notable reflux was seen at this time. CONCLUSIONS No evidence of DVT in the above-mentioned identifiable veins Significant venous reflux of greater than 500 ms(888 msec) was noted at the mid greater saphenous vein segment on the right side. The vein measured at 0.76 cm in diameter at a depth of 1.13 cm. No significant venous reflux on the left side. Dr Raúl Mckenzie MD [facility] (Electronically Signed) Final Date: 29 January 2024 20:42 S
== END 2024-01-23 09:31 | disposition home or self-care (01) ==
LOC: RAD 09:31
PROVIDERS: PCP Family Medicine; Visit Provider Nurse Practitioner Family
DX: Z51.89 Encounter for other specified aftercare (principal)
CPT/HCPCS: 11042; 11044; 11045; 93970; 97597; 97598; A6252

== ENCOUNTER 2024-01-25 11:15 | Outpatient (CLI) | payer MEDICARE, MEDICAID, SELFPAY ==
--- NOTE | 2024-01-25 11:15 | USCV_ITS ---
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 ABIs not obtained due to inability to record pressures. Could not obtain pressures due to LE sore locations and patients pain. Patent lower extremity arteries bilaterally. Because of the technical difficulties the DPA could not be assessed. Normal arterial Doppler waveforms and Doppler velocities CONCLUSIONS 1. Normal arterial Doppler waveforms and velocities suggesting no significant arterial obstruction. 2. ABIs could not be obtained because of the technical difficulties Dr Raúl Mckenzie MD [facility] (Electronically Signed) Final Date: 26 January 2024 01:24 S
== END 2024-01-25 11:30 | disposition home or self-care (01) ==
PROVIDERS: PCP Family Medicine; Visit Provider Nurse Practitioner Family
DX: I73.9 Peripheral vascular disease, unspecified (principal)
CPT/HCPCS: 93925

== ENCOUNTER → 2024-01-29 08:47 | Outpatient (BNVA) | payer MEDICARE, MEDICAID, SELFPAY | PROVIDERS: PCP Family Medicine; Visit Provider Thoracic Surgery (Cardiothoracic Vascular Surgery) | DX: E11.52 Type 2 diabetes mellitus with diabetic peripheral angiopathy with gangrene (principal); E11.621 Type 2 diabetes mellitus with foot ulcer; L89.623 Pressure ulcer of left heel, stage 3; L97.521 Non-pressure chronic ulcer of other part of left foot limited to breakdown of skin; L97.511 Non-pressure chronic ulcer of other part of right foot limited to breakdown of skin; E11.622 Type 2 diabetes mellitus with other skin ulcer; L97.821 Non-pressure chronic ulcer of other part of left lower leg limited to breakdown of skin; L97.811 Non-pressure chronic ulcer of other part of right lower leg limited to breakdown of skin | CPT/HCPCS: 97597; 97598; A6021; A6252 ==

== ENCOUNTER → 2024-02-05 08:45 | Outpatient (BNVA) | payer MEDICARE, MEDICAID, SELFPAY | PROVIDERS: PCP Family Medicine; Visit Provider Thoracic Surgery (Cardiothoracic Vascular Surgery) | DX: E11.52 Type 2 diabetes mellitus with diabetic peripheral angiopathy with gangrene (principal); E11.621 Type 2 diabetes mellitus with foot ulcer; L89.623 Pressure ulcer of left heel, stage 3; L97.511 Non-pressure chronic ulcer of other part of right foot limited to breakdown of skin; E11.622 Type 2 diabetes mellitus with other skin ulcer; L97.821 Non-pressure chronic ulcer of other part of left lower leg limited to breakdown of skin; L97.811 Non-pressure chronic ulcer of other part of right lower leg limited to breakdown of skin | CPT/HCPCS: 97597; 97598 ==

== ENCOUNTER → 2024-02-12 08:42 | Outpatient (BNVA) | payer MEDICARE, MEDICAID, SELFPAY | PROVIDERS: PCP Family Medicine; Visit Provider Thoracic Surgery (Cardiothoracic Vascular Surgery) | DX: E11.52 Type 2 diabetes mellitus with diabetic peripheral angiopathy with gangrene (principal); E11.621 Type 2 diabetes mellitus with foot ulcer; L89.623 Pressure ulcer of left heel, stage 3; L97.511 Non-pressure chronic ulcer of other part of right foot limited to breakdown of skin; E11.622 Type 2 diabetes mellitus with other skin ulcer; L97.811 Non-pressure chronic ulcer of other part of right lower leg limited to breakdown of skin; L97.821 Non-pressure chronic ulcer of other part of left lower leg limited to breakdown of skin | CPT/HCPCS: 97597; 97598; A6251; A6252; A6253 ==

== ENCOUNTER → 2024-02-19 09:00 | Outpatient (BNVA) | payer MEDICARE, MEDICAID, SELFPAY | PROVIDERS: PCP Family Medicine; Visit Provider Thoracic Surgery (Cardiothoracic Vascular Surgery) | DX: E11.52 Type 2 diabetes mellitus with diabetic peripheral angiopathy with gangrene (principal); E11.621 Type 2 diabetes mellitus with foot ulcer; L89.623 Pressure ulcer of left heel, stage 3; L97.511 Non-pressure chronic ulcer of other part of right foot limited to breakdown of skin; E11.622 Type 2 diabetes mellitus with other skin ulcer; L97.811 Non-pressure chronic ulcer of other part of right lower leg limited to breakdown of skin; L97.821 Non-pressure chronic ulcer of other part of left lower leg limited to breakdown of skin | CPT/HCPCS: 97597; 97598; A6210; A6252 ==

== ENCOUNTER → 2024-02-26 08:55 | Outpatient (BNVA) | payer MEDICARE, MEDICAID, SELFPAY | PROVIDERS: PCP Family Medicine; Visit Provider Thoracic Surgery (Cardiothoracic Vascular Surgery) | DX: E11.52 Type 2 diabetes mellitus with diabetic peripheral angiopathy with gangrene (principal); E11.621 Type 2 diabetes mellitus with foot ulcer; L89.623 Pressure ulcer of left heel, stage 3; L97.511 Non-pressure chronic ulcer of other part of right foot limited to breakdown of skin; E11.622 Type 2 diabetes mellitus with other skin ulcer; L97.811 Non-pressure chronic ulcer of other part of right lower leg limited to breakdown of skin; L97.821 Non-pressure chronic ulcer of other part of left lower leg limited to breakdown of skin | CPT/HCPCS: 97597; 97598; A6252; A6253 ==

== ENCOUNTER → 2024-03-11 08:46 | Outpatient (BNVA) | payer MEDICARE, MEDICAID, SELFPAY | PROVIDERS: PCP Family Medicine; Visit Provider Thoracic Surgery (Cardiothoracic Vascular Surgery) | DX: E11.52 Type 2 diabetes mellitus with diabetic peripheral angiopathy with gangrene (principal); E11.621 Type 2 diabetes mellitus with foot ulcer; L97.511 Non-pressure chronic ulcer of other part of right foot limited to breakdown of skin; L89.623 Pressure ulcer of left heel, stage 3; E11.622 Type 2 diabetes mellitus with other skin ulcer; L97.811 Non-pressure chronic ulcer of other part of right lower leg limited to breakdown of skin; L97.821 Non-pressure chronic ulcer of other part of left lower leg limited to breakdown of skin | CPT/HCPCS: 97597; 97598 ==

== ENCOUNTER → 2024-03-25 08:42 | Outpatient (BNVA) | payer MEDICARE, MEDICAID, SELFPAY | PROVIDERS: PCP Family Medicine; Visit Provider Thoracic Surgery (Cardiothoracic Vascular Surgery) | DX: E11.52 Type 2 diabetes mellitus with diabetic peripheral angiopathy with gangrene (principal); E11.621 Type 2 diabetes mellitus with foot ulcer; L89.623 Pressure ulcer of left heel, stage 3; L97.511 Non-pressure chronic ulcer of other part of right foot limited to breakdown of skin; E11.622 Type 2 diabetes mellitus with other skin ulcer; L97.811 Non-pressure chronic ulcer of other part of right lower leg limited to breakdown of skin; L97.821 Non-pressure chronic ulcer of other part of left lower leg limited to breakdown of skin | CPT/HCPCS: 97597; 97598; A6251; A6252 ==

== ENCOUNTER 2024-04-01 09:28 | Outpatient (CLI) | payer MEDICARE, MEDICAID, SELFPAY ==
--- NOTE | 2024-04-01 09:40 | XR_ITS ---
WS: [id number] Exam: XR foot LT min 3V* [id number] Date/Time of Exam: 04/01/2024 9:42 AM Reason For Exam: E11.621 - Type 2 diabetes mellitus with foot ulcer Comparison 07/31/2023. The distal aspect of the fifth metatarsal is surgically absent. There is likely some bone destruction involving the base of the remaining proximal fifth phalanx. There is associated demineralization. Th ere is soft tissue swelling in this region. Findings are suspicious for osteomyelitis of the fifth pr oximal phalanx base. The remaining bony structures of the foot show no sign of osseous destruction. D egenerative changes in the MP and IP joints. Degenerative changes in the midfoot joints. Soft tissue swelling of the foot. There may be soft tissue ulceration along the posterior calcaneus. No acute fra cture. XR/XR foot LT min 3V* [id number] IMPRESSION: 1. Findings are suspicious for acute bony destruction at the base of the proxim al fifth phalanx. There is associated soft tissue swelling in this region. No o ther sign of osseous destruction identified. 2. Degenerative changes and soft tissue swelling of the foot. There may be ulce ration of the skin along the posterior calcaneus. 3. Extensive soft tissue calcification about the ankle which may be related to venous stasis. Arterial calcifications are also seen.
== END 2024-04-01 09:29 | disposition home or self-care (01) ==
LOC: RAD 09:30
PROVIDERS: PCP Family Medicine; Visit Provider Thoracic Surgery (Cardiothoracic Vascular Surgery)
DX: E11.621 Type 2 diabetes mellitus with foot ulcer (principal); L97.509 Non-pressure chronic ulcer of other part of unspecified foot with unspecified severity; M17.11 Unilateral primary osteoarthritis, right knee; E11.52 Type 2 diabetes mellitus with diabetic peripheral angiopathy with gangrene; L89.623 Pressure ulcer of left heel, stage 3; L97.511 Non-pressure chronic ulcer of other part of right foot limited to breakdown of skin; L97.521 Non-pressure chronic ulcer of other part of left foot limited to breakdown of skin; L97.421 Non-pressure chronic ulcer of left heel and midfoot limited to breakdown of skin; E11.622 Type 2 diabetes mellitus with other skin ulcer; L97.821 Non-pressure chronic ulcer of other part of left lower leg limited to breakdown of skin; L97.811 Non-pressure chronic ulcer of other part of right lower leg limited to breakdown of skin
CPT/HCPCS: 73630; 97597; 97598; A6252

== ENCOUNTER → 2024-04-08 07:51 | Outpatient (BNVA) | payer MEDICARE, MEDICAID, SELFPAY | PROVIDERS: PCP Family Medicine; Visit Provider Thoracic Surgery (Cardiothoracic Vascular Surgery) | DX: E11.52 Type 2 diabetes mellitus with diabetic peripheral angiopathy with gangrene (principal); E11.621 Type 2 diabetes mellitus with foot ulcer; L97.511 Non-pressure chronic ulcer of other part of right foot limited to breakdown of skin; L89.623 Pressure ulcer of left heel, stage 3; L97.521 Non-pressure chronic ulcer of other part of left foot limited to breakdown of skin; L97.421 Non-pressure chronic ulcer of left heel and midfoot limited to breakdown of skin; E11.622 Type 2 diabetes mellitus with other skin ulcer; L97.821 Non-pressure chronic ulcer of other part of left lower leg limited to breakdown of skin; L97.811 Non-pressure chronic ulcer of other part of right lower leg limited to breakdown of skin | CPT/HCPCS: 97597; 97598; A6251; A6253 ==

== ENCOUNTER → 2024-04-15 07:50 | Outpatient (BNVA) | payer MEDICARE, MEDICAID, SELFPAY | PROVIDERS: PCP Family Medicine; Visit Provider Thoracic Surgery (Cardiothoracic Vascular Surgery) | DX: E11.52 Type 2 diabetes mellitus with diabetic peripheral angiopathy with gangrene (principal); E11.621 Type 2 diabetes mellitus with foot ulcer; L89.623 Pressure ulcer of left heel, stage 3; L97.511 Non-pressure chronic ulcer of other part of right foot limited to breakdown of skin; L97.421 Non-pressure chronic ulcer of left heel and midfoot limited to breakdown of skin; E11.622 Type 2 diabetes mellitus with other skin ulcer; L97.821 Non-pressure chronic ulcer of other part of left lower leg limited to breakdown of skin; L97.811 Non-pressure chronic ulcer of other part of right lower leg limited to breakdown of skin; Z09 Encounter for follow-up examination after completed treatment for conditions other than malignant neoplasm | CPT/HCPCS: 29581; 97597; 97598; A6252; A6253 ==

== ENCOUNTER → 2024-04-22 08:54 | Outpatient (BNVA) | payer MEDICARE, MEDICAID, SELFPAY | PROVIDERS: PCP Family Medicine; Visit Provider Thoracic Surgery (Cardiothoracic Vascular Surgery) | DX: E11.52 Type 2 diabetes mellitus with diabetic peripheral angiopathy with gangrene (principal); E11.621 Type 2 diabetes mellitus with foot ulcer; L97.511 Non-pressure chronic ulcer of other part of right foot limited to breakdown of skin; L97.421 Non-pressure chronic ulcer of left heel and midfoot limited to breakdown of skin; E11.622 Type 2 diabetes mellitus with other skin ulcer; L97.821 Non-pressure chronic ulcer of other part of left lower leg limited to breakdown of skin; L97.811 Non-pressure chronic ulcer of other part of right lower leg limited to breakdown of skin | CPT/HCPCS: 29581; 97597; 97598; A6252; A6253 ==

== ENCOUNTER → 2024-04-29 08:48 | Outpatient (BNVA) | payer MEDICARE, MEDICAID, SELFPAY | PROVIDERS: PCP Family Medicine; Visit Provider Thoracic Surgery (Cardiothoracic Vascular Surgery) | DX: E11.52 Type 2 diabetes mellitus with diabetic peripheral angiopathy with gangrene (principal); E11.621 Type 2 diabetes mellitus with foot ulcer; L97.511 Non-pressure chronic ulcer of other part of right foot limited to breakdown of skin; L97.421 Non-pressure chronic ulcer of left heel and midfoot limited to breakdown of skin; L89.623 Pressure ulcer of left heel, stage 3; E11.622 Type 2 diabetes mellitus with other skin ulcer; L97.821 Non-pressure chronic ulcer of other part of left lower leg limited to breakdown of skin; L97.811 Non-pressure chronic ulcer of other part of right lower leg limited to breakdown of skin | CPT/HCPCS: 97597; 97598; A6251; A6252 ==

== ENCOUNTER → 2024-05-13 09:11 | Outpatient (BNVA) | payer MEDICARE, MEDICAID, SELFPAY | PROVIDERS: PCP Family Medicine; Visit Provider Thoracic Surgery (Cardiothoracic Vascular Surgery) | DX: E11.52 Type 2 diabetes mellitus with diabetic peripheral angiopathy with gangrene (principal); E11.621 Type 2 diabetes mellitus with foot ulcer; L97.423 Non-pressure chronic ulcer of left heel and midfoot with necrosis of muscle; L97.512 Non-pressure chronic ulcer of other part of right foot with fat layer exposed; L97.421 Non-pressure chronic ulcer of left heel and midfoot limited to breakdown of skin; E11.622 Type 2 diabetes mellitus with other skin ulcer; L97.822 Non-pressure chronic ulcer of other part of left lower leg with fat layer exposed; L97.811 Non-pressure chronic ulcer of other part of right lower leg limited to breakdown of skin | CPT/HCPCS: 29581; 87070; 87176; 87205; 97597; 97598; A6251; A6252; A6253 ==

== ENCOUNTER → 2024-05-20 08:48 | Outpatient (BNVA) | payer MEDICARE, MEDICAID, SELFPAY | PROVIDERS: PCP Family Medicine; Visit Provider Thoracic Surgery (Cardiothoracic Vascular Surgery) | DX: E11.621 Type 2 diabetes mellitus with foot ulcer (principal); L89.623 Pressure ulcer of left heel, stage 3; L97.511 Non-pressure chronic ulcer of other part of right foot limited to breakdown of skin; L97.421 Non-pressure chronic ulcer of left heel and midfoot limited to breakdown of skin; L97.811 Non-pressure chronic ulcer of other part of right lower leg limited to breakdown of skin; L97.821 Non-pressure chronic ulcer of other part of left lower leg limited to breakdown of skin | CPT/HCPCS: 29581; 97597; 97598; A6251; A6253 ==

== ENCOUNTER → 2024-05-27 08:51 | Outpatient (BNVA) | payer MEDICARE, MEDICAID, SELFPAY | PROVIDERS: PCP Family Medicine; Visit Provider Thoracic Surgery (Cardiothoracic Vascular Surgery) | DX: E11.52 Type 2 diabetes mellitus with diabetic peripheral angiopathy with gangrene (principal); E11.621 Type 2 diabetes mellitus with foot ulcer; L89.623 Pressure ulcer of left heel, stage 3; L97.411 Non-pressure chronic ulcer of right heel and midfoot limited to breakdown of skin; L97.421 Non-pressure chronic ulcer of left heel and midfoot limited to breakdown of skin; E11.622 Type 2 diabetes mellitus with other skin ulcer; L97.822 Non-pressure chronic ulcer of other part of left lower leg with fat layer exposed; L97.811 Non-pressure chronic ulcer of other part of right lower leg limited to breakdown of skin | CPT/HCPCS: 11042; 11045; 97597; 97598; A6251; A6253 ==

== ENCOUNTER → 2024-06-03 08:50 | Outpatient (BNVA) | payer MEDICARE, MEDICAID, SELFPAY | PROVIDERS: PCP Family Medicine; Visit Provider Thoracic Surgery (Cardiothoracic Vascular Surgery) | DX: E11.52 Type 2 diabetes mellitus with diabetic peripheral angiopathy with gangrene (principal); E11.621 Type 2 diabetes mellitus with foot ulcer; L89.623 Pressure ulcer of left heel, stage 3; L97.511 Non-pressure chronic ulcer of other part of right foot limited to breakdown of skin; L97.421 Non-pressure chronic ulcer of left heel and midfoot limited to breakdown of skin; E11.622 Type 2 diabetes mellitus with other skin ulcer; L97.811 Non-pressure chronic ulcer of other part of right lower leg limited to breakdown of skin; L97.821 Non-pressure chronic ulcer of other part of left lower leg limited to breakdown of skin | CPT/HCPCS: 11042; 11045; 97597; 97598; A6251; A6253 ==

== ENCOUNTER 2024-06-06 08:14 | Outpatient (CLI) | payer MEDICARE, MEDICAID, SELFPAY ==
--- NOTE | 2024-06-06 08:16 | CT_ITS ---
WS: [id number] CT ABDOMEN AND PELVIS WITH CONTRAST HISTORY: PERIRECTAL ABSCESS/RECTAL FISTULA TECHNIQUE: Imaging performed of the abdomen and pelvis with IV contrast. Single phase imaging of the abdomen. Coronal and sagittal reformats are submitted. All CT scans at [facility] use at [address] one of these dose optimization techniques: automated exposure control; mA and/or kV adjustment per patient size (includes targeted exams where dose is matched to clinical indication); or iterative re construction. IV CONTRAST: Omnipaque 350; 100 mL IV. Oral contrast: Yes. DLP: 1928.63 mGy.cm COMPARISON: 05/03/2023 Lower thorax: Lung bases are clear. Heart is normal size. No hiatal hernia. Liver/biliary system: Liver is enlarged extending over a length of 21 cm similar to the prior study. No mass identified. Gallbladder: Normal. No gallstones or wall thickening. No pericholecystic fluid. Pancreas: Diffuse pancreatic atrophy. Spleen: Normal size spleen. No mass or infarct. Adrenal glands: Normal. Right and LEFT kidneys: Kidneys are normal size. No obstruction. Small extrarenal pelvis. There is no calyceal dilatation. There are few tiny cortical hypodensities. Aorta: Normal size. Calcified plaque at the origin of the celiac axis. No obstruction. Lymphadenopathy: None. Free fluid: None. GI tract: Normal distention of the stomach and small bowel. Mild constipation. Reidentified is the fi stulous track extending between the rectum and the urinary bladder. Fluid collection along the LEFT l ateral rectum measures 5.0 x 2.7 cm. There are small foci of air along the tract. The tract is very d ifficult to identify in its entirety but there is a small amount of air in the bladder wall along wit h thickening. There is additional air-fluid layer in the bladder. No additional areas suspicious for fistula identified. Normal appendix. Abdominal wall: Marked thinning of the musculature within the abdominal wall. Large mouth hernia chely g the RIGHT pelvis. Hernia orifice measures 9.0 cm. There is nonobstructed small bowel within the her alia sac. Additional small hernias along the anterior abdominal wall more superiorly. These hernias co ntain fat only. Pelvis: No free fluid. Urinary bladder is irregular shaped and contains an air-fluid level. LEFT late ral bladder wall thickening contains foci of air from the fistula. Bones: Degenerative changes throughout the lumbar spine. Disc desiccation. CT/CT abdomen pelvis w con* [id number] IMPRESSION: 1. 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 Urinary bladder c ontinues to contain an air-fluid level and there is a focus of air in the thick ened LEFT lateral bladder wall and the fistulous tract is identified from the L EFT lateral rectum extending towards the bladder. The associated fluid collecti on which has been previously described is reidentified measuring 5.0 x 2.7 cm. 2. RIGHT pelvic abdominal hernia containing a loop of nondilated small bowel. 3. Study is compromised by patient's body habitus. 4. No renal obstruction.
[2024-06-06] MEDS: iohexol 350 mg/mL 500 mL Btl (per mL) PO (08:40)
[2024-06-06] MEDS: iohexol 350 mg/mL 500 mL Btl (per mL) IV (09:56)
== END 2024-06-06 08:15 | disposition home or self-care (01) ==
LOC: RAD 08:14
PROVIDERS: PCP Family Medicine; Visit Provider Family Medicine
DX: K60.42 Rectal fistula, complex (principal); K45.8 Other specified abdominal hernia without obstruction or gangrene
CPT/HCPCS: 74177

== ENCOUNTER → 2024-06-10 08:57 | Outpatient (BNVA) | payer MEDICARE, MEDICAID, SELFPAY | PROVIDERS: PCP Family Medicine; Visit Provider Thoracic Surgery (Cardiothoracic Vascular Surgery) | DX: E11.52 Type 2 diabetes mellitus with diabetic peripheral angiopathy with gangrene (principal); E11.621 Type 2 diabetes mellitus with foot ulcer; L89.623 Pressure ulcer of left heel, stage 3; L97.511 Non-pressure chronic ulcer of other part of right foot limited to breakdown of skin; L97.421 Non-pressure chronic ulcer of left heel and midfoot limited to breakdown of skin; E11.622 Type 2 diabetes mellitus with other skin ulcer; L97.822 Non-pressure chronic ulcer of other part of left lower leg with fat layer exposed; L97.811 Non-pressure chronic ulcer of other part of right lower leg limited to breakdown of skin; Z09 Encounter for follow-up examination after completed treatment for conditions other than malignant neoplasm | CPT/HCPCS: 11042; 11045; 97597; 97598; A6251; A6253 ==

== ENCOUNTER → 2024-06-24 08:57 | Outpatient (BNVA) | payer MEDICARE, MEDICAID, SELFPAY | PROVIDERS: PCP Family Medicine; Visit Provider Thoracic Surgery (Cardiothoracic Vascular Surgery) | DX: E11.52 Type 2 diabetes mellitus with diabetic peripheral angiopathy with gangrene (principal); E11.622 Type 2 diabetes mellitus with other skin ulcer; L97.822 Non-pressure chronic ulcer of other part of left lower leg with fat layer exposed; L97.811 Non-pressure chronic ulcer of other part of right lower leg limited to breakdown of skin; E11.621 Type 2 diabetes mellitus with foot ulcer; L97.421 Non-pressure chronic ulcer of left heel and midfoot limited to breakdown of skin; L97.511 Non-pressure chronic ulcer of other part of right foot limited to breakdown of skin; L89.623 Pressure ulcer of left heel, stage 3 | CPT/HCPCS: 11042; 97597; 97598; A6252; A6253 ==

== ENCOUNTER → 2024-07-01 08:54 | Outpatient (BNVA) | payer MEDICARE, MEDICAID, SELFPAY | PROVIDERS: PCP Family Medicine; Visit Provider Thoracic Surgery (Cardiothoracic Vascular Surgery) | DX: E11.52 Type 2 diabetes mellitus with diabetic peripheral angiopathy with gangrene (principal); E11.621 Type 2 diabetes mellitus with foot ulcer; L97.421 Non-pressure chronic ulcer of left heel and midfoot limited to breakdown of skin; L97.511 Non-pressure chronic ulcer of other part of right foot limited to breakdown of skin; L89.623 Pressure ulcer of left heel, stage 3; E11.622 Type 2 diabetes mellitus with other skin ulcer; L97.822 Non-pressure chronic ulcer of other part of left lower leg with fat layer exposed; L97.811 Non-pressure chronic ulcer of other part of right lower leg limited to breakdown of skin | CPT/HCPCS: 11042; 11045; 97597; 97598; A6197; A6252; A6253 ==

== ENCOUNTER 2024-08-26 16:18 | Outpatient (CLI) | payer MEDICARE, MEDICAID, SELFPAY | END 2024-08-26 16:19 | disposition home or self-care (01) | PROVIDERS: PCP Family Medicine; Visit Provider Family Medicine | DX: L97.229 Non-pressure chronic ulcer of left calf with unspecified severity (principal) | CPT/HCPCS: 87070 ==

== ENCOUNTER 2024-09-27 15:28 | Outpatient (CLI) | payer MEDICARE, MEDICAID, SELFPAY | END 2024-09-27 15:29 | disposition home or self-care (01) | LOC: LAB 15:29 | PROVIDERS: PCP Family Medicine; Visit Provider Family Medicine | DX: L97.211 Non-pressure chronic ulcer of right calf limited to breakdown of skin (principal) | CPT/HCPCS: 87070 ==

== ENCOUNTER 2024-10-16 08:37 | Outpatient (CLI) | payer MEDICARE, MEDICAID, SELFPAY ==
--- NOTE | 2024-10-16 08:43 | CTR_ITS ---
PROCEDURE INFORMATION: Exam: CTA Abdominal Aorta and Bilateral Lower Extremities (Run-off) With Contrast Exam date and time: 10/16/2024 10:15 AM Age: 68 years old Clinical indication: Condition or disease; Peripheral vascular disease; Additional info: Peripheral arterial disease TECHNIQUE: Imaging protocol: Computed tomographic angiography of the of the abdominal aorta, pelvis and bilateral lower extremities with contrast. 3D rendering (Not supervised by radiologist): MIP and/or 3D reconstructed images were created by the technologist. Radiation optimization: All CT scans at this facility use at least one of these dose optimization techniques: automated exposure control; mA and/or kV adjustment per patient size (includes targeted exams where dose is matched to clinical indication); or iterative reconstruction. Contrast material: OMNIPAQUE 350; Contrast volume: 125 ml; Contrast route: INTRAVENOUS (IV); COMPARISON: CT angio chest w abd pel w con 02/01/2022 2:40 PM RADIATION DOSE METRICS: Total DLP (mGy-cm): 43719.77 FINDINGS: Limitations: Markedly limited by extensive streak artifact. Further limited by image degradation from the patient's large size. Limited by suboptimal arterial opacification. Aorta: No obvious significant aortic pathology, but markedly limited. Celiac trunk and mesenteric arteries: Grossly unremarkable, but markedly limited. Renal arteries: Grossly unremarkable, but markedly limited. Right iliac arteries: Grossly unremarkable, but markedly limited. Right femoral/popliteal arteries: Grossly unremarkable, but markedly limited. Right infrapopliteal arteries: Nondiagnostic due to severe limitations. Left iliac arteries: Grossly unremarkable, but markedly limited. Left femoral/popliteal arteries: Grossly unremarkable, but markedly limited. Left infrapopliteal arteries: No occlusion or significant stenosis. Veins: Varices in both calves. No other obvious venous pathology. Lungs: Small amount of scarring in the lung bases. Small amount of compressive atelectasis in the left lung base. Liver: Grossly unremarkable, but markedly limited. Diaphragm: Mild elevation of the left hemidiaphragm. Gallbladder and biliary ducts: Grossly unremarkable, but markedly limited. Pancreas: Unremarkable. No mass. No ductal dilation. Spleen: Grossly unremarkable, but markedly limited. Adrenal glands: Normal. No mass. Kidneys and ureters: 1.5 cm low-density lesions in the superior and inferior left kidney are not significantly changed, and are believed to be benign cysts. Otherwise, grossly unremarkable, but markedly limited. Stomach and bowel: Grossly unremarkable, but markedly limited. Appendix: No obvious appendicitis, but evaluation for such is markedly limited. Urinary bladder: Small amount of gas in the urinary bladder. Consider cystitis if the patient has not been recently instrumented. Otherwise, grossly unremarkable, but markedly limited. Reproductive: Reproductive structures are mostly obscured by artifact. Intraperitoneal space: No obvious free intraperitoneal fluid or free air. Lymph nodes: No lymphadenopathy. Bones/joints: Mild scoliosis. Multilevel spondylosis ranging from mild to severe. Partial spinal ankylosis. Mild bilateral hip arthritis. Otherwise, unremarkable. Soft tissues: Moderate umbilical hernia containing fat and benign-appearing bowel. Diffuse muscle atrophy. Bilateral ankle and foot edema. Subdermal calcification in both calves. Otherwise, unremarkable visualized body wall. Otherwise, unremarkable soft tissues. CT/CT angio abd aorta runof [id number] IMPRESSION: 1. Nondiagnostic CTA of the infrapopliteal arteries bilaterally due to severe limitations. 2. Otherwise, grossly unremarkable systemic arteries, but evaluation is markedly limited. 3. Additional details as above.
[2024-10-16 10:08] LABS: Blood Urea Nitrogen 17 mg/dL (8-23); Glomerular Filtration Rate 74.8 mL/min (90-130)
[2024-10-16] MEDS: iohexol 350 mg/mL 500 mL Btl (per mL) IV (10:43)
== END 2024-10-16 08:38 | disposition home or self-care (01) ==
PROVIDERS: Radiology Diagnostic Radiology; PCP Family Medicine; Visit Provider Family Medicine
DX: I73.9 Peripheral vascular disease, unspecified (principal); I83.93 Asymptomatic varicose veins of bilateral lower extremities; J98.4 Other disorders of lung; J98.11 Atelectasis; N28.89 Other specified disorders of kidney and ureter; M41.80 Other forms of scoliosis, site unspecified; M47.9 Spondylosis, unspecified; M43.20 Fusion of spine, site unspecified; M16.0 Bilateral primary osteoarthritis of hip; K42.9 Umbilical hernia without obstruction or gangrene; M79.89 Other specified soft tissue disorders; R93.6 Abnormal findings on diagnostic imaging of limbs
CPT/HCPCS: 75635; 82565; 84520

== ENCOUNTER 2025-06-17 11:03 | Emergency (ER) | payer MEDICARE, MEDICAID, SELFPAY ==
--- OUTSIDE RECORDS SUMMARY | 2025-06-06 07:40 | XMS_ITS ---
Author Organization [facility] Address [address] [place] [address] Care Team Providers Care Striper Machine Name Role Phone Randolph Dewitt Primary Care Provider Elieser Silva REASON FOR VISIT Alf Rounds Encounters Encounter Location Date Provider Diagnosis [facility] [address] [place] [address] 06/06/2025 Elieser Fernandez Plan Of Treatment No Information Progress Notes * SMOOTH HIDALGOOB:1955 (69 yo M)Acc No.[id number]:06/06/2025 Patient: EDEL HELTON Provider: Adolfo Fernandez MD :1955 A ge:69 Y S ex:Male Date:06/06/2025 Address:[address], [id number] Pcp:Randolph Dewitt Subjective: * Chief Complaints: * N ursing Home Rounds Billing Information: * Procedure Codes: * Electronic signature of Chris Fernandez MD on 06/17/2025 at 12:16 PM GROUNDS AND NURSERY SPECIALIST Sign off status: Pending * Provider: Adolfo Fernandez MD Date: 08/07/2024 Generated for Ash matthews/Siva/Abdiazizransmitting on: 08/18/2024 12:16 PM GROUNDS AND NURSERY SPECIALIST
[2025-06-17 11:05] VITALS: BP 124/66; PULSE 63; RESP 18; TEMP 36.6; O2SAT 96
[2025-06-17 11:25] LABS: Hematocrit 34.2 % (37-53); Hemoglobin 10.00 g/dL (11.27-16.99); Mean Corpuscular HGB Conc 29.2 g/dL (30-55); Mean Corpuscular Hemoglobin 26.7 pg (27-33); Mean Corpuscular Volume 91.4 fl (82-101); Nucleated Red Blood Cells % 0 %; Platelet Count 280 10^3/cmm (157-399); Red Blood Count 3.74 10^6/uL (3.85-5.65); White Blood Count 7.81 10^3/uL (3.29-11.43)
[2025-06-17] MEDS: ondansetron 2 mg/ML SDV 2 mL 4 MG IVP (11:26)
[2025-06-17] MEDS: HYDROmorphone 0.5 MG/0.5 ML INJ 1 MG IVP (11:26)
--- NOTE | 2025-06-17 11:26 | ED_ITS ---
HPI - Wound/Laceration 2 General: Chief Complaint: Wound/Laceration Stated Complaint: pain in fistula Time Seen by Provider: 06/17/25 11:07 Source: patient Mode of arrival: ambulatory Limitations: no limitations History of Present Illness: 69-year-old male states he has a known a nal fistula patient is currently bedbound history of bilateral lower extremity amputations he has been in [facility]. States had some pain on the fistula as he is mainly laying on it. Nursing was concerned about some slight drainage he denies any fevers. Related Data Home Medications ?Medication ?Instructions ?Recorded ?Confirmed apixaban 5 mg tablet (Eliquis) 2.5 mg PO BID 07/15/20 09/26/23 gabapentin 300 mg capsule 900 mg PO BEDTIME 07/15/20 0 09/26/23 ferrous sulfate 325 mg (65 mg 325 mg PO QAM 12/09/20 0 09/26/23 iron) tablet amiodarone 200 mg tablet 200 mg PO QAM 12/24/2109/25 levothyroxine 50 mcg tablet 50 mcg PO QAM 05/05/22 (Euthyrox) acetaminophen 500 mg tablet 1,000 mg PO Q6H PRN Pain 0 08/10/22 09/26/23 ondansetron 4 mg disintegrating 4 mg PO Q8H PRN Nausea 08/10/22 09/26/23 tablet semaglutide 0.25 mg or 0.5 mg (2 0.25 mg SUBCUT Q7D 09/26/23 mg/3 mL) subcutaneous pen injector (Ozempic) sildenafil 50 mg tablet 50 - 100 mg PO BID PRN Erect ile 07/31/23 09/26/23 Dysfunction Previous Rx's ?Medication ?Instructions ?Recorded oxycodone-acetaminophen 5 mg-325 1 tab PO Q4H PRN pain #30 tabs 05/03/23 mg tablet (Percocet) insulin glargine 100 unit/mL (3 50 unit (0.5 mL) SUBCU T BID #15 mL 08/07/23 mL) subcutaneous pen (Lantus Solostar U-100 Insulin) lisinopril 5 mg tablet 10 mg (2 x 5 mg) PO DAILY #6 0 tabs 08/07/23 levofloxacin 750 mg tablet 750 mg PO DAILY #7 tabs 07/26 linezolid 600 mg tablet 600 mg PO Q12H #14 tabs 07/26 levofloxacin 500 mg tablet 500 mg PO DAILY #7 tabs 05/26 sulfamethoxazole 800 1 tab PO BID #20 tabs mg-trimethoprim 160 mg tablet (Bactrim DS) Allergies Allergy/AdvReac Type Severity Reaction Status Date / Time liraglutide (From Victoza) Allergy Severe ADR-Vomitin Verified 04/30/24 14:20 g ertapenem Allergy ALGY-Rash Verified 09/26/23 15:26 vancomycin Allergy ALGY-Redness Verified 04/30/24 14:20 of Skin aspirin AdvReac Mild ADR-Vomitin Verified 09/26/23 15:26 g PFSH ED 2 PFSH: Medical History Anemia Hypothyroidism Erectile dysfunction Ventral hernia CKD (chronic kidney disease) Sleep apnea Osteoarthritis Iron deficiency anemia Diabetes Perirectal abscess Non-ST elevation MA (NSTEMI) Pulmonary embolism History of osteomyelitis Hx of low back pain Hx of hyperlipidemia HTN (hypertension) CHF (congestive heart failure) Atrial fibrillation PVD (peripheral vascular disease) History of end stage renal disease Was on hemodialysis for a period of time a but was able to come off of routine hemodialysis treatment with stable renal function Morbid obesity Surgical History 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 History of incision and drainage for perirectal abscess, several times in 2021, developed sinus track History of hemicolectomy Due to diverticulitis History of surgery on arm Family History Denies family history of Anesthesia complication Social History Smoking and tobacco/nicotine status: never used tobacco/nicotine Alcohol intake: never Substance/Drug Use: never Housing: Senior Living Physical Exam 2 Const: COMMON NORMALS: no acute distress, patient oriented x3 and healthy appearing HENMT: COMMON NORMALS: normocephalic and atraumatic HEAD & SCALP: n ormocephalic and atraumatic Neck/C-Spine: COMMON NORMALS: full ROM and supple Chest: COMMONS NORMALS: normal inspection of the chest Resp: COMMON NORMALS: normal respiratory effort Cardio: COMMON NORMALS: regular rate, regular rhythm and No murmurs present (Cardio) RATE: regular rate RHYTHM: regular rhythm GI: COMMON NORMALS: Normal to inspection, nondistended, normoactive bowel sounds present, Soft to palpation, non-tender and no masses PALPATION: Yes Soft to palpation OTHER: Anorectal fistula noted no drainage at this time no erythema Extremity: COMMON NORMALS: normal to inspection and full ROM Neuro: COMMON NORMALS: patient oriented x3, moves all extremities and no focal motor deficits Psych: COMMON NORMALS: mental status grossly normal, Normal thought process present and cooperative THOUGHT PROCESS: Normal thought process present Skin: COMMON NORMALS: no rashes or lesions noted and no wounds GENERAL SKIN EXAM: no rashes or lesions noted Course 2 Vital Signs: Vital signs: Vital Signs Temperature 97.8 F 06/17/25 11:05 Pulse Rate 63 06/17/25 11:05 Respiratory Rate 18 06/17/25 11:05 Blood Pressure 124/66 06/17/25 11:05 Pulse Oximetry 97 06/17/25 11:34 Oxygen Delivery Me thod Room Air 06/17/25 11:34 MDM - Wound/Laceration Medical Decision Making Patient presents here with concern of some leakage from his known anal fistula. On my exam he had no leakage at this time no signs of cellulitis blood work showed no significant abnormalities his vitals have been stable here he is stable for [facility] to the [facility] Medical Records I reviewed the patient's medical records. Lab Data I reviewed the patient's lab results. 06/17/25 11:20 06/17/25 11:20 Laboratory Results WBC 7.81 10^3/uL (3.29-11.43) 06/17/25 11:20 RBC 3.74 10^6/uL (3.85-5.65) L 06/17/25 11:20 Hgb 10.00 g/dL (11.27-16.99) L 06/17/25 11:20 Hct 34.2 % (37-53) L 06/17/25 11:20 MCV 91.4 fl (82-101) 06/17/25 11:20 MCH 26.7 pg (27-33) L 06/17/25 11:20 MCHC 29.2 g/dL (30-55) L 06/17/25 11:20 RDW 20.4 % (12.1-15.1) H 06/17/25 11:20 Plt Count 280 10^3/cmm (157-399) 06/17/25 11:20 MPV 8.2 fL (7.4-10.4) 06/17/25 11:20 Neut % (Auto) 67.6 % 06/17/25 11:20 Lymph % (Auto) 17.7 % 06/17/25 11:20 [facility] % (Auto) 10.8 % 06/17/25 11:20 Eos % (Auto) 2.4 % 06/17/25 11:20 Baso % (Auto) 0.9 % 06/17/25 11:20 Neut # (Auto) 5.28 10^3/uL (1.8-7.7) 06/17/25 11:20 Lymph # (Auto) 1.4 10^3/uL (0.8-4.8) 06/17/25 11:20 [facility] # (Auto) 0.8 10^3/uL (0.2-0.9) 06/17/25 11:20 Eos # (Auto) 0.2 10^3/uL (0.0-0.8) 06/17/25 11:20 Baso # (Auto) 0.1 10^3/uL (0.0-0.1) 06/17/25 11:20 Nucleated RBC % (auto) 0 % 06/17/25 11:20 Nucleated RBCs # 0.0 /100WBC 06/17/25 11:20 Sodium 138 mmol/L (136-145) 06/17/25 11:20 Potassium 4.0 mmol/L (3.5-5.1) 06/17/25 11:20 Chloride 98 mmol/L (98-107) 06/17/25 11:20 Carbon Dioxide 31 mmol/L (22-29) H 06/17/25 11:20 Anion Gap 13.0 (5-19) 06/17/25 11:20 BUN 16 mg/dL (8-23) 06/17/25 11:20 Creatinine 1.4 mg/dL (0.7-1.2) H 06/17/25 11:20 GFR Calculation 50.5 mL/min (90-130) L 06/17/25 11:20 Glucose 149 mg/dL (65-115) H 06/17/25 11:20 Calculated Osmolality 290 mOsm/kg (285-295) 06/17/25 11:20 Calcium 8.9 mg/dL (8.5-10.5) 06/17/25 11:20 Total Bilirubin 0.3 mg/dL (0.15-1.2) 06/17/25 11:20 AST 10 U/L (0-40) 06/17/25 11:20 ALT 6 U/L (0-41) 06/17/25 11:20 Alkaline Phosphatase 94 U/L (40-130) 06/17/25 11:20 Total Protein 6.8 g/dL (6.6-8.7) 06/17/25 11:20 Albumin 3.7 g/dL (3.5-5.2) 06/17/25 11:20 Globulin 3.1 g/dL (1.3-4.6) 06/17/25 11:20 No radiology studies performed this visit Discharge Plan Discharge Patient Disposition: Home Clinical Impression: Rectal fistula Condition: Stable Prescriptions: No Action lidocaine HCl [Lidocaine Viscous] 2 % solution 1 applic topical ONCE Qty: 1 0RF lidocaine HCl [Lidocaine Viscous] 2 % solution 1 applic topical ONCE Qty: 1 0RF lidocaine HCl [Lidocaine Viscous] 2 % solution 1 applic topical ONCE Qty: 1 0RF levofloxacin 500 mg tablet 500 mg PO DAILY Qty: 7 0RF sulfamethoxazole-trimethoprim [Bactrim DS] 800-160 mg tablet 1 tab PO BID Qty: 20 0RF lidocaine HCl [Lidocaine Viscous] 2 % solution 1 applic topical ONCE Qty: 1 0RF lidocaine HCl [Lidocaine Viscous] 2 % solution 1 applic topical ONCE Qty: 1 0RF lidocaine HCl [Lidocaine Viscous] 2 % solution 1 applic topical ONCE Qty: 1 0RF lidocaine HCl [Lidocaine Viscous] 2 % solution 1 applic topical ONCE Qty: 1 0RF lidocaine HCl [Lidocaine Viscous] 2 % solution 1 applic topical ONCE Qty: 1 0RF linezolid 600 mg tablet 600 mg PO Q12H Qty: 14 5RF levofloxacin 750 mg tablet 750 mg PO DAILY Qty: 7 5RF gabapentin 300 mg capsule 900 mg PO BEDTIME Eliquis 5 mg tablet 2.5 mg PO BID Rx Instructions: Tales 2.5mg (half a tablet) twice per day ferrous sulfate 325 mg (65 mg iron) Tablet 325 mg PO QAM oxycodone-acetaminophen [Percocet] 5-325 mg tablet 1 tab PO Q4H PRN (Reason: pain) Qty: 30 0RF amiodarone 200 mg Tablet 200 mg PO QAM levothyroxine [Euthyrox] 50 mcg tablet 50 mcg PO QAM ondansetron 4 mg tablet,disintegrating 4 mg PO Q8H PRN (Reason: Nausea) acetaminophen 500 mg Tablet 1,000 mg PO Q6H PRN (Reason: Pain) sildenafil 50 mg tablet 50 - 100 mg PO BID PRN (Reason: Erectile Dysfunction) Ozempic 0.25 mg or 0.5 mg (2 mg/3 mL) pen injector 0.25 mg SUBCUT Q7D Rx Instructions: ON MONDAY lisinopril 5 mg tablet 10 mg PO DAILY Qty: 60 0RF Lantus Solostar U-100 Insulin 100 unit/mL (3 mL) insulin pen 50 unit SUBCUT BID Qty: 15 0RF Discharge Orders: Discharge ED (Routine); Ordered 06/17/25 Ordered By: Michelle Hansen Referrals: Benjamin Cardenas [Primary Care Provider, [facility]] - 4-7 days Discharge Diet: Advance as tolerated Discharge Activity: Resume usual activity Patient Instructions: Anorectal Abscess and Anal Fistula (ED) Print Language: Swedish Coding Level of Care Code ED Deburrer Strip for Deisi Vogt
[2025-06-17 11:34] VITALS: O2SAT 97
[2025-06-17 11:45] LABS: Alanine Aminotransferase 6 U/L (0-41); Albumin Level 3.7 g/dL (3.5-5.2); Alkaline Phosphatase 94 U/L (40-130); Anion Gap 13.0 (5-19); Aspartate Amino Transferase 10 U/L (0-40); Blood Urea Nitrogen 16 mg/dL (8-23); Calcium 8.9 mg/dL (8.5-10.5); Carbon Dioxide 31 mmol/L (22-29); Chloride 98 mmol/L (98-107); Globulin 3.1 g/dL (1.3-4.6); Glucose 149 mg/dL (65-115); Osmolality Calculated 290 mOsm/kg (285-295); Potassium 4.0 mmol/L (3.5-5.1); Sodium 138 mmol/L (136-145); Total Protein 6.8 g/dL (6.6-8.7)
--- OUTSIDE RECORDS SUMMARY | 2025-06-17 12:16 | XMS_ITS | Encounter Summary ---
Author Organization [facility] Address [address] [place] [address] Care Team Providers Care Drywall Application Supervisor Name Role Phone Marie Mitchell MD Primary Care Provider [phone] Encounter Details Date Type Department Care Team (Latest Contact Info) Description 02/13/2001 Outpatient Historical [facility] Family Medicine- [place] [address] [place] [address] Kwame Holder MD [address] 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
--- OUTSIDE RECORDS SUMMARY | 2025-06-17 12:16 | XMS_ITS | Encounter Summary ---
Author Organization [facility] Address [address] [place] [address] Care Team Providers Care Fine Unhairer Name Role Phone Marie Mitchell MD Primary Care Provider [phone] Encounter Details Date Type Department Care Team (Latest Contact Info) Description 08/15/2006 Outpatient Historical [facility] Family Medicine- [address] [address] [place], [place] [address] Cezar Fernandez PA NO ADDRESS ON FILE Ingrowing Nail (Primary Dx); Lumbago Social History Tobacco Use Types Packs/Day Years Used Date Smoking Tobacco: Never Assessed Sex and Gender Information Value Date Recorded Sex Assigned at Not on file 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
--- OUTSIDE RECORDS SUMMARY | 2025-06-17 12:16 | XMS_ITS | Encounter Summary ---
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
--- OUTSIDE RECORDS SUMMARY | 2025-06-17 12:16 | XMS_ITS | Encounter Summary ---
Author Organization [facility] Address [address] [place] [address] Care Team Providers Care Community Service Director Name Role Phone Marie Mitchell MD Primary Care Provider [phone] Encounter Details Date Type Department Care Team (Latest Contact Info) Description 07/09/2002 Outpatient Historical [facility] Family Medicine- [place] [address] [place], [place] [phone] [place], NO ADDRESS ON FILE ESOPHAGEAL REFLUX (Primary Dx); MYALGIA AND MYOSITIS NOS Social History Tobacco Use Types Packs/Day Years Used Date Smoking Tobacco: Never Assessed Sex and Gender Information Value Date Recorded Sex Assigned at Not on file 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
--- OUTSIDE RECORDS SUMMARY | 2025-06-17 12:16 | XMS_ITS | Encounter Summary ---
Author Organization [facility] Address [address] [facility] [place] [address] Care Team Providers Care Metal Buildings Assembler Name Role Phone Marie Mitchell MD Primary Care Provider +1- [phone] Encounter Details Date Type Department Care Team (Late st Contact Info) Description 11/13/2019 Lab Requisition [facility] Laboratory Services [address] 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 No / Unsure 10/21/2019 11:41 AM CDT documented as of this encounter Plan of Treatment Not on file documented as of this encounter Procedures Procedure Name Priority Date/Time Associated Diagnosis Comments TSH Stat 11/13/2019 8:02 AM CDT T4 FREE Stat 11/13/2019 8:02 AM CDT documented in this encounter Results * TSH (11/13/2019 8:02 AM CDT) TSH 3.59 0.27 - 4.20 uIU/mL 11/13/2019 5:09 PM CDT [facility] Blood Collection / Unknown 11/13/2019 8:02 AM CDT 11/13/2019 4:39 PM CDT Amada Jones MD CHEMISTRY ORDERABLES F inal Result [facility] CLIA# [id number] [address] [place] [address] * T4 FREE (11/13/2019 8:02 AM CDT) Pathologist [facility] T4 FREE 1.59 0.81 - 1.70 ng/dL 11/13/2019 5:10 PM CDT [facility] Blood Collection / Unknown 11/13/2019 8:02 AM CDT 11/13/2019 4:39 PM CDT Amada Jones MD CHEMISTRY ORDERABLES F inal Result Performing Organization Address City/[facility] [address]/ZIP Co de Phone Number [facility] CLIA# [id number] [address] [place] [address] documented in this encounter Visit Diagnoses Not on filedocumented in this encounter Additional Health Concerns Assessment Noted Time PHQ-9 Depression Total Score: 1 07/31/19 19 9:00 AM PURCHASING ADMINISTRATOR documented as of this encounter Care Teams Metal Buildings Assembler Relationship Specialty Start Date End Date Marie Mitchell MD [address] [phone] PCP - General Family Practice 01/20/17 documented as of this encounter
--- OUTSIDE RECORDS SUMMARY | 2025-06-17 12:16 | XMS_ITS | Encounter Summary ---
Author Organization [facility] Address [address] [place] [address] Care Team Providers Care Dead Mail Checker Name Role Phone Marie Mitchell MD Primary Care Provider +1- [phone] Encounter Details Date Type Department Care Team (Latest Contact Info) Description 12/07/2005 Outpatient Historical [facility] Family Medicine- [place] [address] [place], [place] [address] Pascaul June, NO ADDRESS ON FILE Ingrowing Nail (Primary Dx) Social History Tobacco Use Types Packs/Day Years Used Date Smoking Tobacco: Never Assessed Sex and Gender Information Value Date Recorded Sex Assigned at Not on file 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
--- OUTSIDE RECORDS SUMMARY | 2025-06-17 12:16 | XMS_ITS | Encounter Summary ---
Author Organization [facility] Address [address] [facility] [place] [address] Care Team Providers Care Petrophysical Engineer Name Role Phone Marie Mitchell MD Primary Care Provider +1- [phone] Encounter Details Date Type Department Care Team (Late st Contact Info) Description 11/26/2019 Lab Requisition [facility] Laboratory Services [address] [place] [address] [place] [address] Amada Jones MD NO ADDRESS ON FILE Social History Tobacco Use Types Packs/Day Years Used Date Smoking Tobacco: Never Smokeless Tobacco: Never Alcohol Use Standard Drinks/Week Comments No 0 (1 standard drink = 0.6 oz pur e alcohol) past hx Sex and Gender Information Value Date Recorded Sex Assigned at Not on file Legal Sex Male 4:07 AM COLLEGE COUNSELOR Gender Identity Not on file Sexual Orientation Not on file Occupation Industry Job Start Date Job End Date Not on file Not on file Not on file Not on file documented as of this encounter Plan of Treatment Not on file documented as of this encounter Procedures Procedure Name Priority Date/Time Associated Diagnosis Comments PREALBUMIN Stat 11/26/2019 6:28 AM CDT documented in this encounter Results * PREALBUMIN (11/26/2019 6:28 AM CDT) PREALBUMIN 25 20 - 40 mg/dL 11/26/2019 5:41 PM CDT [facility] Blood Collection / Unknown 11/26/2019 6:28 AM CDT 11/26/2019 5:22 PM CDT Amada Jones MD CHEMISTRY ORDERABLES F inal Result [facility]# [id number] [address] [place] [address] documented in this encounter Visit Diagnoses Not on filedocumented in this encounter Additional Health Concerns Assessment Noted Time PHQ-9 Depression Total Score: 1 07/31/19 19 9:00 AM COLLEGE COUNSELOR documented as of this encounter Care Teams Petrophysical Engineer Relationship Specialty Start Date End Date Marie Mitchell MD [address] [address] PCP - General Family Practice 01/20/17 documented as of this encounter
--- OUTSIDE RECORDS SUMMARY | 2025-06-17 12:16 | XMS_ITS | Encounter Summary ---
Author Organization [facility] Address [address] [place] [address] Care Team Providers Care Manager Video Name Role Phone Marie Mitchell MD Primary Care Provider +1- [phone] Encounter Details Date Type Department Care Team (Latest Contact Info) Description 02/28/2006 Outpatient Historical [facility] Family Medicine- [place] [address] [place] [address] Cezar Fernandez PA NO ADDRESS ON FILE Ingrowing Nail (Primary Dx); Acute Upper Respiratory Infections of Unspecified Site Social History Tobacco Use Types Packs/Day Years Used Date Smoking Tobacco: Never Assessed Sex and Gender Information Value Date Recorded Sex Assigned at Not on file Legal Sex Male 4: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
--- OUTSIDE RECORDS SUMMARY | 2025-06-17 12:16 | XMS_ITS | Encounter Summary ---
Author Organization [facility] Address [address] [place] [address] Care Team Providers Care Laborer Poultry Hatchery Name Role Phone Marie Mitchell MD Primary Care Provider +1- [phone] Encounter Details Date Type Department Care Team (Latest Contact Info) Description 12/18/1998 Outpatient Historical [facility] Medicine [address] [phone] Pascual June, DO NO ADDRESS ON FILE Esophageal reflux (Primary Dx) Social History Tobacco Use Types Packs/Day Years Used Date Smoking Tobacco: Never Assessed Sex and Gender Information Value Date Recorded Sex Assigned at Not on file Legal Sex Male 4:07 AM SANIPRACTIC PHYSICIAN Gender Identity Not on file Sexual Orientation Not on file documented as of this encounter Plan of Treatment Not on file documented as of this encounter Visit Diagnoses Diagnosis Esophageal reflux- Primary documented in this encounter Care Teams Laborer Poultry Hatchery Relationship Specialty Start Date End Date Marie Mitchell MD [address] [address] PCP - General Family Practice 01/20/17 documented as of this encounter
--- OUTSIDE RECORDS SUMMARY | 2025-06-17 12:16 | XMS_ITS | Encounter Summary ---
Author Organization [facility] Address [address] [place] [address] Care Team Providers Care Appraisal Manager Name Role Phone Marie Mitchell MD Primary Care Provider +1- [phone] Encounter Details Date Type Department Care Team (Latest Contact Info) Description 12/15/2004 Outpatient [facility] Medicine [address] [address] Cezar Fernandez, PA NO ADDRESS ON FILE BACKACHE NOS (Primary Dx) Social History Tobacco Use Types Packs/Day Years Used Date Smoking Tobacco: Never Assessed Sex and Gender Information Value Date Recorded Sex Assigned at Not on file Legal Sex Male 4:07 AM PACKING ROOM INSPECTOR Gender Identity Not on file Sexual Orientation Not on file documented as of this encounter Plan of Treatment Not on file documented as of this encounter Visit Diagnoses Diagnosis Backache, unspecified- Primary documented in this encounter Care Teams Appraisal Manager Relationship Specialty Start Date End Date Marie Mitchell MD [address] [address] PCP - General Family Practice 01/20/17 documented as of this encounter
--- OUTSIDE RECORDS SUMMARY | 2025-06-17 12:16 | XMS_ITS | Encounter Summary ---
Author Organization [facility] Address [address] [place] [address] Care Team Providers Care Heater Helper Forge Name Role Phone Marie Mitchell MD Primary Care Provider Encounter Details Date Type Department Care Team (Latest Contact Info) Description 12/04/2000 Outpatient Historical [facility] Family Medicine- [place] [address] [place] [address] Kwame Holder MD [address] [facility] [address] [place] [address] Esophageal reflux (Primary Dx); Foreign body in ear Social History Tobacco Use Types Packs/Day Years Used Date Smoking Tobacco: Never Assessed Sex and Gender Information Value Date Recorded Sex Assigned at Not on file Legal Sex Male 4:07 AM POT HOLDER BINDER Gender Identity Not on file Sexual Orientation Not on file documented as of this encounter Plan of Treatment Not on file documented as of this encounter Visit Diagnoses Diagnosis Esophageal reflux- Primary Foreign body in ear documented in this encounter Care Teams Heater Helper Forge Relationship Specialty Start Date End Date Marie Mitchell MD [address] [facility] [address] [place] [address] PCP - General Family Practice 01/20/17 documented as of this encounter
--- OUTSIDE RECORDS SUMMARY | 2025-06-17 12:16 | XMS_ITS | Encounter Summary ---
Author Organization [facility] Address [address] [place] [address] Care Team Providers Care Prepress Technician Name Role Phone Marie Mitchell MD Primary Care Provider +1- [phone] Encounter Details Date Type Department Care Team (Latest Contact Info) Description 10/05/2005 Outpatient Historical [facility] Family Medicine- [place] [address] [place], [place] [address] Cezar Fernandez, PA NO ADDRESS ON FILE Ingrowing Nail (Primary Dx); Depressive Disorder, not Elsewhere Classified; Unspecified Essential Hypertension Social History Tobacco Use Types Packs/Day Years Used Date Smoking Tobacco: Never Assessed Sex and Gender Information Value Date Recorded Sex Assigned at Not on file Legal Sex Male 4:07 AM GUM SCORING MACHINE OPERATOR Gender Identity Not on file Sexual Orientation Not on file documented as of this encounter Plan of Treatment Not on file documented as of this encounter Visit Diagnoses Diagnosis Ingrowing nail- Primary Depressive disorder, not elsewhere classified Unspecified essential hypertension documented in this encounter Care Teams Prepress Technician Relationship Specialty Start Date End Date Marie Mitchell MD [address] [facility] [address] [place] [address] PCP - General Family Practice 01/20/17 documented as of this encounter
--- OUTSIDE RECORDS SUMMARY | 2025-06-17 12:16 | XMS_ITS | Encounter Summary ---
Author Organization [facility] Address [address] [place] [address] Care Team Providers Care Production Bow Maker Name Role Phone Marie Mitchell MD Primary Care Provider Encounter Details Date Type Department Care Team (Latest Contact Info) Description 06/06/2003 Outpatient [facility]- [address] [phone] Kwame Holder MD [address] [facility] [address] [place] [address] FLU W RESP MANIFEST NEC (Primary Dx) Social History Tobacco Use Types Packs/Day Years Used Date Smoking Tobacco: Never Assessed Sex and Gender Information Value Date Recorded Sex Assigned at Not on file Legal Sex Male 4:07 AM CONCESSIONS MANAGER Gender Identity Not on file Sexual Orientation Not on file documented as of this encounter Plan of Treatment Not on file documented as of this encounter Visit Diagnoses Diagnosis Influenza with other respiratory manifestations- Primary documented in this encounter Care Teams Production Bow Maker Relationship Specialty Start Date End Date Marie Mitchell MD [address] [facility] [address] [place] [address] PCP - General Family Practice 01/20/17 documented as of this encounter
--- OUTSIDE RECORDS SUMMARY | 2025-06-17 12:16 | XMS_ITS | Encounter Summary ---
Author Organization [facility] Address [address] [place] [address] Care Team Providers Care Silver Brazer Name Role Phone Marie Mitchell MD Primary Care Provider +1- [phone] Encounter Details Date Type Department Care Team (Latest Contact Info) Description 05/04/2004 Outpatient Historical [facility] Family Medicine- [place] [address] [place] [address] Cezar Fernandez PA NO ADDRESS ON FILE LUMBAGO (Primary Dx); HYPERTENSION NOS; EDEMA Social History Tobacco Use Types Packs/Day Years Used Date Smoking Tobacco: Never Assessed Sex and Gender Information Value Date Recorded Sex Assigned at Not on file Legal Sex Male 4:07 AM ELECTRICAL ELECTRONICS ENGINEER Gender Identity Not on file Sexual Orientation Not on file documented as of this encounter Plan of Treatment Not on file documented as of this encounter Visit Diagnoses Diagnosis Lumbago- Primary Unspecified essential hypertension Edema documented in this encounter Care Teams Silver Brazer Relationship Specialty Start Date End Date Marie Mitchell MD [address] [facility] [address] [place] [address] PCP - General Family Practice 01/20/17 documented as of this encounter
--- OUTSIDE RECORDS SUMMARY | 2025-06-17 12:16 | XMS_ITS | Encounter Summary ---
Author Organization [facility] Address [address] [place] [address] Care Team Providers Care Automobile Travel Club Counselor Name Role Phone Marie Mitchell MD Primary Care Provider +1- [phone] Encounter Details Date Type Department Care Team (Latest Contact Info) Description 04/12/1999 Outpatient Historical [facility] Family Medicine- [place] [address] [place] [phone] Makeda Castillo ADDRESS ON FILE Esophageal reflux (Primary Dx); Other malaise and fatigue; Pain in joint, site unspecified; Myalgia and myositis, unspecified Social History Tobacco Use Types Packs/Day Years Used Date Smoking Tobacco: Never Assessed Sex and Gender Information Value Date Recorded Sex Assigned at Not on file Legal Sex Male 4:07 AM CHIEF II DISPATCHER Gender Identity Not on file Sexual Orientation Not on file documented as of this encounter Plan of Treatment Not on file documented as of this encounter Visit Diagnoses Diagnosis Esophageal reflux- Primary Other malaise and fatigue Pain in joint, site unspecified Myalgia and myositis, unspecified Mylagia and myositis, unspecified documented in this encounter Care Teams Automobile Travel Club Counselor Relationship Specialty Start Date End Date Marie Mitchell MD [address] [facility] [address] [place] [address] PCP - General Family Practice 01/20/17 documented as of this encounter
--- OUTSIDE RECORDS SUMMARY | 2025-06-17 12:16 | XMS_ITS | Encounter Summary ---
Author Organization [facility] Address [address] [place] [address] Care Team Providers Care Ux Specialist Name Role Phone Marie Mitchell MD Primary Care Provider +1- [phone] Encounter Details Date Type Department Care Team (Latest Contact Info) Description 01/07/[address] [facility] Family Medicine- [place] [address] [place], [place] [address] Pascual June, NO ADDRESS ON FILE HYPERTENSION NOS (Primary Dx); EDEMA Social History Tobacco Use Types Packs/Day Years Used Date Smoking Tobacco: Never Assessed Sex and Gender Information Value Date Recorded Sex Assigned at Not on file Legal Sex Male 4:07 AM RISK MANAGEMENT ANALYST Gender Identity Not on file Sexual Orientation Not on file documented as of this encounter Plan of Treatment Not on file documented as of this encounter Visit Diagnoses Diagnosis Unspecified essential hypertension- Primary Edema documented in this encounter Care Teams Ux Specialist Relationship Specialty Start Date End Date Marie Mitchell MD [address] [facility] [address] [facility] [address] [place] [address] PCP - General Family Practice 01/20/17 documented as of this encounter
--- OUTSIDE RECORDS SUMMARY | 2025-06-17 12:16 | XMS_ITS | Encounter Summary ---
Author Organization [facility] Address [address] [place] [address] Care Team Providers Care Hand Icer Name Role Phone Marie Mitchell MD Primary Care Provider Encounter Details Date Type Department Care Team (Latest Contact Info) Description 03/14/2003 Outpatient [facility]- [address] [phone] Pascual June, DO NO ADDRESS ON FILE ENTHESOPATHY OF KNEE NEC (Primary Dx); EDEMA; DERMATOPHYTOSIS OF BODY; HYPERTENSION NOS Social History Tobacco Use Types Packs/Day Years Used Date Smoking Tobacco: Never Assessed Sex and Gender Information Value Date Recorded Sex Assigned at Not on file Legal Sex Male 4:07 AM AIRCRAFT STRUCTURAL 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
--- OUTSIDE RECORDS SUMMARY | 2025-06-17 12:16 | XMS_ITS | Encounter Summary ---
Author Organization [facility] Address [address] [place] [address] Care Team Providers Care Ski Maker Name Role Phone Marie Mitchell MD Primary Care Provider +1- [phone] Encounter Details Date Type Department Care Team (Latest Contact Info) Description 09/11/2007 Outpatient Historical [facility] Imaging Services [address] [place] [address] Ina Davis MD NO ADDRESS ON FILE Abdominal Pain, Unspecified Site Social History Tobacco Use Types Packs/Day Years Used Date Smoking Tobacco: Never Assessed Sex and Gender Information Value Date Recorded Sex Assigned at Not on file Legal Sex Male 4:07 AM DISPUTE COORDINATOR Gender Identity Not on file Sexual Orientation Not on file documented as of this encounter Plan of Treatment Not on file documented as of this encounter Procedures Procedure Name Priority Date/Time Associated Diagnosis Comments CT ABDOMEN W CONTRAST Routine 09/12/2007 11:48 AM CDT documented in this encounter Results * CT ABDOMEN W CONTRAST (09/12/2007 11:48 AM CDT) Anatomical Region Laterality Modality Abdomen Other 09/12/2007 11:4 8 AM CDT Narrative 09/12/2007 11:48 AM CDT Exam: CT Abdomen with Contrast Date/Time of Exam: Sep 12, 2007 11:48:47 AM History: 789 abdominal pain. Axial tomograms obtained through the abdomen with Optiray-240 intravenous contrast, 75 mL. Oral contrast administered. 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 Visualized lung bases unremarkable. Given size of patient's body habitus, portions of inferior aspect of liver could not be included within [id number] of imaging. Hepatomegaly measures 28.7 cm in length. Gross appearance of geographic fatty infiltration of liver. Nonspecific appearing gallbladder. No biliary ductal dilatation. Remainder of solid upper intra-abdominal organs unremarkable. No apparent lymphadenopathy by size criteria. No free fluid. Imaged bowel structures with scattered colonic diverticula; no apparent accompanying inflammatory change. Multilevel degenerative change of spine. Impression: Diagnostically limited examination as portions of the liver could not be included within imaging [id number] secondary to patient's body habitus. Hepatomegaly with the appearance of geographic fatty infiltration. Colonic diverticulosis. Procedure Note Celena Walsh S - 09/12/2007 Exam: CT Abdomen with Contrast Date/Time of Exam: Sep 12, 2007 11:48:47 AM History: 789 abdominal pain. Axial tomograms obtained through the abdomen with Optiray-240 intravenouscontrast, 75 mL. Oral contrast administered. 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 Visualized lungbases unremarkable. Given size of patient's body habitus, portions of inferior aspect of liver could not beincluded within [id number] of imaging. Hepatomegaly measures 28.7 cm in length. Gross appearance ofgeographic fatty infiltration of liver. Nonspecific appearing gallbladder. No biliary ductal dilatation.Remainder of solid upper intra-abdominal organs unremarkable. No apparent lymphadenopathy by sizecriteria. No free fluid. Imaged bowel structures with scattered colonic diverticula; no apparentaccompanying inflammatory change. Multilevel degenerative change of spine. Impression: Diagnostically limited examination as portions of the livercould not be included within imaging [id number] secondary to patient's body habitus. Hepatomegalywith the appearance of geographic fatty infiltration. Colonic diverticulosis. us Ina Davis MD CT ORDERABLES Final Resul t documented in this encounter Visit Diagnoses Diagnosis Abdominal pain, unspecified site documented in this encounter Care Teams Ski Maker Relationship Specialty Start Date End Date Marie Mitchell MD [address] [phone] PCP - General Family Practice 01/20/17 documented as of this encounter
--- OUTSIDE RECORDS SUMMARY | 2025-06-17 12:16 | XMS_ITS | Encounter Summary ---
Author Organization [facility] Address [address] [place] [address] Care Team Providers Care Flavoring Machine Operator Name Role Phone Marie Mitchell MD Primary Care Provider +1- [phone] Encounter Details Date Type Department Care Team (Latest Contact Info) Description 08/03/[address] [phone] Cezar Fernandez PA NO ADDRESS ON FILE HYPERTENSION NOS (Primary Dx); ALLERGIC RHINITIS NOS Social History Tobacco Use Types Packs/Day Years Used Date Smoking Tobacco: Never Assessed Sex and Gender Information Value Date Recorded Sex Assigned at Not on file Legal Sex Male 4:07 AM 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
--- OUTSIDE RECORDS SUMMARY | 2025-06-17 12:16 | XMS_ITS | Encounter Summary ---
Author Organization [facility] Address [address] [place] [address] Care Team Providers Care Electrical Unit Rebuilder Name Role Phone Marie Micthell MD Primary Care Provider +1- [phone] Encounter Details Date Type Department Care Team (Latest Contact Info) Description 12/12/2006 Outpatient Historical [facility] Family Medicine- [place] [address] [place], [place] [address] Cezar Fernandez, PA NO ADDRESS ON FILE Gout, Unspecified (Primary Dx) Social History Tobacco Use Types Packs/Day Years Used Date Smoking Tobacco: Never Assessed Sex and Gender Information Value Date Recorded Sex Assigned at Not on file Legal Sex Male 4:07 AM HYPOID GEAR TESTER Gender Identity Not on file Sexual Orientation Not on file documented as of this encounter Plan of Treatment Not on file documented as of this encounter Visit Diagnoses Diagnosis Gout, unspecified- Primary documented in this encounter Care Teams Electrical Unit Rebuilder Relationship Specialty Start Date End Date Marie Mitchell MD [address] [facility] [address] [place] [address] PCP - General Family Practice 01/20/17 documented as of this encounter
--- OUTSIDE RECORDS SUMMARY | 2025-06-17 12:16 | XMS_ITS | Encounter Summary ---
Author Organization [facility] Address [address] [place] [address] Care Team Providers Care Oyster Fisherman Name Role Phone Marie Mitchell MD Primary Care Provider +1- [phone] Encounter Details Date Type Department Care Team (Latest Contact Info) Description 08/24/[address] 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
--- OUTSIDE RECORDS SUMMARY | 2025-06-17 12:16 | XMS_ITS | Encounter Summary ---
Author Organization [facility] Address [address] [place] [address] Care Team Providers Care Outside Sales Name Role Phone Marie Mitchell MD Primary Care Provider [phone]- [phone] Encounter Details Date Type Department Care Team (Latest Contact Info) Description 02/14/2006 Outpatient Historical [facility] Family Medicine- [place] [address] [place] [address] Cezar Fernandez, PA NO ADDRESS ON FILE Ingrowing Nail (Primary Dx) Social History Tobacco Use Types Packs/Day Years Used Date Smoking Tobacco: Never Assessed Sex and Gender Information Value Date Recorded Sex Assigned at Not on file Legal Sex Male 4:07 AM LOGISTICS ASSOCIATE Gender Identity Not on file Sexual Orientation Not on file documented as of this encounter Plan of Treatment Not on file documented as of this encounter Visit Diagnoses Diagnosis Ingrowing nail- Primary documented in this encounter Care Teams Outside Sales Relationship Specialty Start Date End Date Marie Mitchell MD [address] [facility] [address] [place] [address] PCP - General Family Practice 01/20/17 documented as of this encounter
--- OUTSIDE RECORDS SUMMARY | 2025-06-17 12:16 | XMS_ITS | Encounter Summary ---
Author Organization [facility] Address [address] [place] [address] Care Team Providers Care Senior Production Manager Name Role Phone Marie Mitchell MD Primary Care Provider Encounter Details Date Type Department Care Team (Latest Contact Info) Description 12/02/1998 Outpatient Historical [facility] General and Trauma Surgery-[address] [place] [address] Mylene Bradley MD NO ADDRESS ON FILE Diverticulitis of colon (Primary Dx) Social History Tobacco Use Types Packs/Day Years Used Date Smoking Tobacco: Never Assessed Sex and Gender Information Value Date Recorded Sex Assigned at Not on file Legal Sex Male 4:07 AM REGISTERED NURSES Gender Identity Not on file Sexual Orientation Not on file documented as of this encounter Plan of Treatment Not on file documented as of this encounter Visit Diagnoses Diagnosis Diverticulitis of colon- Primary Diverticulitis of colon (without mention of hemorrhage) documented in this encounter Care Teams Senior Production Manager Relationship Specialty Start Date End Date Marie Mitchell MD [address] [facility] [address] [place] [address] PCP - General Family Practice 01/20/17 documented as of this encounter
--- OUTSIDE RECORDS SUMMARY | 2025-06-17 12:16 | XMS_ITS | Encounter Summary ---
Author Organization [facility] Address [address] [place] [address] Care Team Providers Care Smoking Pipe Coater Name Role Phone Marie Mitchell MD Primary Care Provider +1- [phone] Encounter Details Date Type Department Care Team (Latest Contact Info) Description 08/22/2006 Outpatient Historical [facility] Family Medicine- [place] [address] [place] [address] Cezar Fernandez, PA NO ADDRESS ON FILE Ingrowing Nail (Primary Dx) Social History Tobacco Use Types Packs/Day Years Used Date Smoking Tobacco: Never Assessed Sex and Gender Information Value Date Recorded Sex Assigned at Not on file Legal Sex Male 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
--- OUTSIDE RECORDS SUMMARY | 2025-06-17 12:16 | XMS_ITS | Encounter Summary ---
Author Organization [facility] Address [address] [place] [address] Care Team Providers Care Bond Trader Name Role Phone Marie Mitchell MD Primary Care Provider +1- [phone] Encounter Details Date Type Department Care Team (Latest Contact Info) Description 05/25/[address] 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
--- OUTSIDE RECORDS SUMMARY | 2025-06-17 12:16 | XMS_ITS | Encounter Summary ---
Author Organization [facility] Address [address] [place] [address] Care Team Providers Care Supervisor Histology Name Role Phone Marie Mitchell MD Primary Care Provider +1- [phone] Encounter Details Date Type Department Care Team (Latest Contact Info) Description 02/18/2003 Outpatient Historical [facility] Family Medicine- [place] [address] [place], [place] [phone] [place], NO ADDRESS ON FILE NONSPECIF SKIN ERUPT NEC (Primary Dx); HYPERTENSION NOS Social History Tobacco Use Types Packs/Day Years Used Date Smoking Tobacco: Never Assessed Sex and Gender Information Value Date Recorded Sex Assigned at Not on file 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
--- OUTSIDE RECORDS SUMMARY | 2025-06-17 12:16 | XMS_ITS | Encounter Summary ---
Author Organization [facility] Address [address] [place] [address] Care Team Providers Care Data Operations Leader Name Role Phone Marie Mitchell MD Primary Care Provider +1- [phone] Encounter Details Date Type Department Care Team (Latest Contact Info) Description 03/05/2002 Outpatient Historical [facility] Family Medicine- [place] [place] [phone] [place], NO ADDRESS ON FILE OBESITY NOS (Primary Dx); JOINT PAIN-UNSPEC Social History Tobacco Use Types Packs/Day Years Used Date Smoking Tobacco: Never Assessed Sex and Gender Information Value Date Recorded Sex Assigned at Not on file 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
--- OUTSIDE RECORDS SUMMARY | 2025-06-17 12:16 | XMS_ITS | Encounter Summary ---
Author Organization [facility] Address [address] [facility] Attn: Epic Prelude ADT [place] [address] Care Team Providers Care Enamel Pulverizer Name Role Phone Marie Mitchell MD Primary Care Provider +1- [phone] Encounter Details Date Type Department Care Team (Late st Contact Info) Description 09/05/2007 Outpatient Historical Cezar Fernandez PA NO ADDRESS ON FILE Social History Tobacco Use Types Packs/Day Years Used Date Smoking Tobacco: Never Assessed Sex and Gender Information Value Date Recorded Sex Assigned at Not on file Legal Sex Male 4:07 AM WHEEL CLEANER Gender Identity Not on file Sexual Orientation Not on file documented as of this encounter Plan of Treatment Not on file documented as of this encounter Procedures Procedure Name Priority Date/Time Associated Diagnosis Comments C-REACTIVE PROTEIN Routine 09/05/2007 9: 58 AM WHEEL CLEANER documented in this encounter Results * (ABNORMAL) C-REACTIVE PROTEIN (09/05/2007 9:58 AM WHEEL CLEANER) CRP 7.54(H) 0.00 - 1.00 mg/dL [facility] Blood specimen (specimen) 09/05/2007 9:58 AM WHEEL CLEANER 09/05/2007 10:18 PM WHEEL CLEANER us Cezar LAMBERT CHEMISTRY ORDERABLES Final Re sult [facility] [address] [place] [address] documented in this encounter Visit Diagnoses Not on filedocumented in this encounter Care Teams Enamel Pulverizer Relationship Specialty Start Date End Date Marie Mitchell MD [address] [address] PCP - General Family Practice 01/20/17 documented as of this encounter
--- OUTSIDE RECORDS SUMMARY | 2025-06-17 12:16 | XMS_ITS | Encounter Summary ---
Author Organization [facility] Address [address] [place] [address] Care Team Providers Care Spray Maker Name Role Phone Marie Mitchell MD Primary Care Provider +1- [phone] Encounter Details Date Type Department Care Team (Latest Contact Info) Description 03/27/2007 Outpatient Historical [facility] Family Medicine- [place] [address] [place] [phone] Cezar Fernandez PA NO ADDRESS ON FILE Ingrowing Nail (Primary Dx); Pain in Joint, Site Unspecified Social History Tobacco Use Types Packs/Day Years Used Date Smoking Tobacco: Never Assessed Sex and Gender Information Value Date Recorded Sex Assigned at Not on file Legal 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
--- OUTSIDE RECORDS SUMMARY | 2025-06-17 12:16 | XMS_ITS | Encounter Summary ---
Author Organization [facility] Address [address] [place] [address] Care Team Providers Care Bridge Ironworker Helper Name Role Phone Marie Mitchell MD Primary Care Provider +1- [phone] Encounter Details Date Type Department Care Team (Late st Contact Info) Description 11/21/2019 Lab Requisition [facility] [address] [place] [address] Amada Jones MD NO ADDRESS ON FILE Social History Tobacco Use Types Packs/Day Years Used Date Smoking Tobacco: Never Smokeless Tobacco: Never Alcohol Use Standard Drinks/Week Comments No 0 (1 standard drink = 0.6 oz pur e alcohol) past hx Sex and Gender Information Value Date Recorded Sex Assigned at Not on file Legal Sex Male 4: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 DIFFICILE DETECTION Stat 11/20/2019 10:30 PM CDT documented in this encounter Results * C. DIFFICILE DETECTION (11/20/2019 10:30 PM CDT) TOXIGENIC C DIFFICILE Not Detected Not Detected 11/21/2019 3:12 PM CDT [facility] [employer] [facility] Stool STOOL SPECIMEN / Unknown Collection / Unknown 11/20/2019 10:30 PM CDT 11/21/2019 1:[address] [facility] - 11/21/2019 3:12 PM CDT This assay is used to detect Toxigenic C. difficile target(B gene) DNA sequences in unformed stool specimens. If toxigenic C. difficile is not detected, but clinical suspicion is high please consult ID for consultation and potential repeat testing. This test should not be used as a test of cure. Amada Jones MD MICROBIOLOGY - GENERAL ORDERABLES Final Result [facility] [employer] [facility] CLIA# [id number] [address] [place] [address] documented in this encounter Visit Diagnoses Not on filedocumented in this encounter Additional Health Concerns Assessment Noted Time PHQ-9 Depression Total Score: 1 07/31/19 19 9:00 AM SPECIMEN PREPARATION ASSISTANT documented as of this encounter Care Teams Bridge Ironworker Helper Relationship Specialty Start Date End Date Marie Mitchell MD [address] [address] PCP - General Family Practice 01/20/17 documented as of this encounter
--- OUTSIDE RECORDS SUMMARY | 2025-06-17 12:16 | XMS_ITS | Encounter Summary ---
Author Organization [facility] Address [address] [place] [address] Care Team Providers Care Outreach And Education Social Worker Name Role Phone Marie Mitchell MD Primary Care Provider +1- [phone] Encounter Details Date Type Department Care Team (Latest Contact Info) Description 10/19/1998 Outpatient Historical [facility] General and Trauma Surgery-[address] [place] [address] Diverticulitis of colon (Primary Dx) Social History Tobacco Use Types Packs/Day Years Used Date Smoking Tobacco: Never Assessed Sex and Gender Information Value Date Recorded Sex Assigned at Not on file Legal 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
--- OUTSIDE RECORDS SUMMARY | 2025-06-17 12:16 | XMS_ITS | Encounter Summary ---
Author Organization [facility] Address [address] [place] [address] Care Team Providers Care Hospital Clerk Name Role Phone Marie Mitchell MD Primary Care Provider +1- [phone] Encounter Details Date Type Department Care Team (Latest Contact Info) Description 10/19/2005 Outpatient Historical [facility] Family Medicine- [place] [address] [place] [phone] Cezar Fernandez PA NO ADDRESS ON FILE Ingrowing Nail (Primary Dx); Skin Sensation Disturb Social History Tobacco Use Types Packs/Day Years Used Date Smoking Tobacco: Never Assessed Sex and Gender Information Value Date Recorded Sex Assigned at Not on file Legal 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
--- OUTSIDE RECORDS SUMMARY | 2025-06-17 12:16 | XMS_ITS | Patient Health Record ---
Author Organization [facility] Address [address] [place] [address] Care Team Providers Care Pilot Teacher Name Role Phone Randolph Dewitt Primary Care Provider Elieser Silva Unavailable [phone] Allergies Allergen (clinical drug ingredient) Drug/Non Drug Allergy documented on EMR Reaction Allergy Type Onset Date Status liraglutide Victoza Unknown Drug Allergy Activ e aspirin Aspirin Unknown Drug Allergy Active hydrocodone HYDROcodone Unknown Drug Allergy Act clyde hydromorphone HYDROmorphone Unknown Drug Allergy Active liraglutide Liraglutide Unknown Drug Allergy Act clyde metronidazole metroNIDAZOLE Unknown Drug Allergy Active vancomycin Vancomycin Unknown Drug Allergy Activ e Reason For Referral No Information Medications Medication SIG (Take, Route, Frequency, Duration) Notes Start Date End Date Status Gabapentin 300 MG Capsule 3 capsules Ora lly Once a day Not-Taking Acetaminophen 500 MG Tablet 1 tablet as needed Orally every 6 hrs Not-Taking Ozempic (2 MG/DOSE) 8 MG/3ML Solution Pen-injector INJECT 2 MG Subcutaneous EVERY 7 DAYS Active Prochlorperazine Maleate 5 MG Tablet 1 tablet as needed Orally every 6 hours Active Ondansetron 4 MG Tablet Disintegrating 1 tablet on the tongue and allow to dissolve Orally Once a day Not-Taking DAPTOmycin 500 MG Solution Reconstituted 1500 mg Intravenous every 6 weeks Not-Taking Amiodarone HCl 200 MG Tablet 1 tablet Orally Once a day Not-Taking diphenhydrAMINE HCl 25 MG Capsule 1 capsule at bedtime as needed Orally Once a day Not-Taking Ferrous Sulfate 325 MG Capsule as directed Orally Not-Takin g Sennosides-Docusate Sodium 8.6-50 MG Tablet 1 tablet as needed Orally Twice a day Active Ozempic (0.25 or 0.5 MG/DOSE) 2 MG/3ML Solution Pen-injector as directed Subcutaneous Not-Taking oxyCODONE-Acetaminophen 5-325 MG Tablet 1 tablet as needed Orally every 4 hours; Duration: 30 days 08/10/2023 Not-Taking Lantus SoloStar 100 UNIT/ML Solution Pen-injector as directed Subcutaneous Not-Taking Levothyroxine Sodium 50 MCG Tablet 1 tablet in the morning on an empty stomach Orally Once a day Not-Taking oxyCODONE-Acetaminophen 10-325 MG Tablet 1 tablet as needed Orally every 8 hours; Duration: 30 days 05/28/2025 Active Nystatin 836214 UNIT/GM Powder APPLY TO AFFECTED AREA Externally Twice a day Active Eliquis 5 MG Tablet 1/2 tablet Orally Twice a day Not-Taking oxyCODONE HCl 15 MG Tablet 1 tablet N EEDED Orally every 4 hours; Duration: 30 days 05/28/2025 Active Sildenafil Citrate 50 MG Tablet 1-2 tablets as needed Orally Once a day Not-Taking Miconazole Nitrate 2 % Cream 1 application Externally Twice a day Active Lisinopril 5 MG Tablet 1 tablet Orally O nce a day Not-Taking Naloxone HCl 4 MG/0.1ML Liquid 1 SPRAY Nasally daily Active Metoprolol Tartrate 25 MG Tablet 1/2 tablet Orally Twice a day Active Problems Problem Type SNOMED Code ICD Code Onset Dates Problem Status W/U Status Risk Notes Problem Type II diabetes mellitus without complication (178753497) Type 2 diabetes mellitus without complications (E11.9) Active confirmed Problem Morbid obesity (disorder) (768912461) Morbid (severe) obesity due to excess calories (E66.01) Active confirmed Problem Essential hypertension (96311756) Essential (primary) hypertension (I10) Active confirmed Problem Hypertensive heart AND chronic kidney disease with congestive heart failure (27003230296700) Hypertensive heart and chronic kidney disease with heart failure and stage 1 through stage 4 chronic kidney disease, or unspecified chronic kidney disease (I13.0) Active confirmed Problem Old myocardial infarction (8263714) Old myocardial infarction (I25.2) Active confirmed Problem Chronic systolic heart failure (097698178) Chronic systolic (congestive) heart failure (I50.22) Active confirmed Problem Peripheral vascular disease (742587693) Peripheral vascular disease, unspecified (I73.9) Active confirmed Problem Varicose ulcer of lower extremity (disorder) (966037101) Varicose veins of unspecified lower extremity with ulcer of unspecified site (I83.009) Active confirmed Problem Pressure injury stage IV (disorder) (4408559668) Pressure ulcer of other site, stage 4 (L89.894) Active confirmed Problem Chronic ulcer of lower extremity (disorder) (25735766) Non-pressure chronic ulcer of unspecified part of unspecified lower leg with unspecified severity (L97.909) Active confirmed Problem End stage renal disease (82644493) End stage renal disease (N18.6) Active confirmed Problem Amputated above knee (037522925) Acquired absence of right leg above knee (Z89.611) Active confirmed Problem Amputated above knee (846027777) Acquired absence of left leg above knee (Z89.612) Active confirmed Problem Non-pressure chronic ulcer of other part of unspecified foot with muscle involvement without evidence of necrosis (L97.505) Active confirmed Problem Iron deficiency anemia (15653033) Iron deficiency anemia, unspecified iron deficiency anemia type (D50.9) Active confirmed Problem Osteoarthritis (170162369) Osteoarthritis, unspecified osteoarthritis type, unspecified site (M19.90) Active confirmed Problem Hypothyroidism (38855294) Hypothyroidism, unspecified type (E03.9) Active confirmed Problem Hyperlipidaemia (96323945) Hyperlipidemia, unspecified hyperlipidemia type (E78.5) Active confirmed Problem Atrial fibrillation (71705923) Atrial fibrillation, unspecified type (I48.91) Active confirmed Problem Sleep apnea (55543507) Sleep apnea, unspecified type (G47.30) Active confirmed Problem Non-pressure chronic ulcer of lower leg, unspecified laterality, unspecified ulcer stage (L97.909) Active confirmed Problem Chronic kidney disease stage 3A (disorder) (032795489) Chronic kidney disease, stage 3a (N18.31) Active confirmed Problem Body mass index 30+ - obesity (finding) (250770903) Body mass index [BMI] 60.0-69.9, adult (Z68.44) Active confirmed Problem Osteomyelitis (60606550) Osteomyelitis, unspecified site, unspecified type (M86.9) Active confirmed Encounters Encounter Location Date Provider Diagnosis Formerly [facility] [address] [place] [address] 06/06/2025 [facility] [address] [place] [address] 05/27/2025 Elieser Fernandez Rectal fistula, complex, 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 ; Cellulitis of right lower limb L03.115 ; Cellulitis of left lower limb L03.116 ; Acquired absence of right leg above knee Z89.611 ; Acquired absence of left leg above knee Z89.612 ; Type 2 diabetes mellitus without complications E11.9 and Morbid (severe) obesity due to excess calories E66.01 [facility] [address] [place] [phone] 05/27/2025 [facility] [address] [address] 05/28/2025 Elieser Fernandez Rectal fistula, complex, 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 ; Cellulitis of right lower limb L03.115 ; Cellulitis of left lower limb L03.116 ; Acquired absence of right leg above knee Z89.611 ; Acquired absence of left leg above knee Z89.612 ; Rectal abscess K61.1 ; Type 2 diabetes mellitus without complications, unspecified whether long term care administrator insulin use E11.9 ; Morbid (severe) obesity due to excess calories E66.01 ; Chronic kidney disease, stage 3a N18.31 ; 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 ; Hypertensive heart and chronic kidney disease with heart failure and stage 1 through stage 4 chronic kidney disease, or unspecified chronic kidney disease I13.0 ; Hypothyroidism, unspecified type E03.9 ; Essential (primary) hypertension I10 ; Chronic systolic (congestive) heart failure I50.22 ; Hyperlipidemia, unspecified hyperlipidemia type E78.5 ; Sleep apnea, unspecified type G47.30 ; Iron deficiency anemia, unspecified iron deficiency anemia type D50.9 ; Old myocardial infarction I25.2 ; Atrial fibrillation, unspecified type I48.91 ; Osteoarthritis, unspecified osteoarthritis type, unspecified site M19.90 and End stage renal disease N18.6 Assessments Encounter Date Diagnosis (ICD Code) Assessment Notes Treatment Notes Treatment Clinical Notes Section Notes 05/28/2025 Cellulitis of right lower limb (ICD-10 - L03.115) 05/28/2025 Rectal fistula, complex, persistent (ICD-10 - K60.422) 05/27/2025 Cellulitis of right lower limb (ICD-10 - L03.115) 05/27/2025 Rectal fistula, complex, persistent (ICD-10 - K60.422) Medications reviewed, orders signed and documented with nursing staff. Vitals taken and recorded at [facility]. 20 mins spent on admission 05/27/2025 Cellulitis of left lower limb (ICD-10 - L03.116) 05/28/2025 Cellulitis of left lower limb (ICD-10 - L03.116) 05/28/2025 Acquired absence of right leg above knee (ICD-10 - Z89.611) 05/27/2025 Acquired absence of right leg above knee (ICD-10 - Z89.611) 05/27/2025 Acquired absence of left leg above knee (ICD-10 - Z89.612) 05/28/2025 Acquired absence of left leg above knee (ICD-10 - Z89.612) 05/27/2025 Type 2 diabetes mellitus without complications (ICD-10 - E11.9) 05/28/2025 Rectal abscess (ICD-10 - K61.1) 05/28/2025 Type 2 diabetes mellitus without complications, unspecified whether detention insulin use (ICD-10 - E11.9) 05/27/2025 Morbid (severe) obesity due to excess calories (ICD-10 - E66.01) 05/28/2025 Morbid (severe) obesity due to excess calories (ICD-10 - E66.01) 05/28/2025 Chronic kidney disease, stage 3a (ICD-10 - N18.31) 05/28/2025 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) 05/28/2025 Hypertensive heart and chronic kidney disease with heart failure and stage 1 through stage 4 chronic kidney disease, or unspecified chronic kidney disease (ICD-10 - I13.0) 05/28/2025 Hypothyroidism, unspecified type (ICD-10 - E03.9) 05/28/2025 Essential (primary) hypertension (ICD-10 - I10) 05/28/2025 Chronic systolic (congestive) heart failure (ICD-10 - I50.22) 05/28/2025 Hyperlipidemia, unspecified hyperlipidemia type (ICD-10 - E78.5) 05/28/2025 Sleep apnea, unspecified type (ICD-10 - G47.30) 05/28/2025 Iron deficiency anemia, unspecified iron deficiency anemia type (ICD-10 - D50.9) 05/28/2025 Old myocardial infarction (ICD-10 - I25.2) 05/28/2025 Atrial fibrillation, unspecified type (ICD-10 - I48.91) 05/28/2025 Osteoarthritis, unspecified osteoarthritis type, unspecified site (ICD-10 - M19.90) 05/28/2025 End stage renal disease (ICD-10 - N18.6) Plan Of Treatment No Information Insurance Providers Payer Name Payer Address Payer Phone Subscriber Number Group Number Insured Name Patient Relationship to Insured Coverage Start Date Coverage End Date [place] [address] [address] [place] [address] [id number] EDEL HIDALGO Self - patient is the insured [place] Medicaid [address] [place] [address] [phone] [id number] EDEL HIDALGO Self - patient is the insured
--- OUTSIDE RECORDS SUMMARY | 2025-06-17 12:16 | XMS_ITS | Encounter Summary ---
Author Organization [facility] Address [address] [place] [address] Care Team Providers Care Sandwich Maker Name Role Phone Marie Mitchell MD Primary Care Provider [phone] Encounter Details Date Type Department Care Team (Latest Contact Info) Description 10/28/1998 Outpatient [facility] [address] [address] Pascual June, DO NO ADDRESS ON FILE Diverticulitis of colon (Primary Dx) Social History Tobacco Use Types Packs/Day Years Used Date Smoking Tobacco: Never Assessed Sex and Gender Information Value Date Recorded Sex Assigned at Not on file Legal 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
--- OUTSIDE RECORDS SUMMARY | 2025-06-17 12:16 | XMS_ITS | Encounter Summary ---
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
--- OUTSIDE RECORDS SUMMARY | 2025-06-17 12:17 | XMS_ITS | Clinical Summary ---
Author Organization [facility] Address [address] [place] [address] Care Team Providers Care Machine Setter Sheet Metal Name Role Phone Marie Mitchell MD Primary Care Provider [phone] Allergies Active Allergy Reactions Criticality Noted Date Comments Aspirin Unknown 04/18/2008 Hydrocodone-Acetaminophen Other (See Comments) 04/21/2009 Liraglutide Nausea and Vomiting Low 02/06/2012 Medications Insulin Syringe-Needle U-100 0.3 mL 30 Misc Syrg 100 Syringe 5 2 Active L. acidophilus/L. rhamnosus (PROBIOTIC ORAL) Take by mouth. Activ e albuterol HFA 90 mcg inhaler Take 2 Puffs by inhalation every 6 hours as needed for Shortness of Breath. 8.5 Gram 11 0 Active insulin lispro (HumaLOG) 100 unit/mL cartridge Inject 8 units twice daily 45 mL 5 1 Active sertraline (ZOLOFT) 50 mg tablet Take 1 Tablet (50 mg) by mouth daily. 90 Tablet 1 1 Active Blood-Glucose Meter Kit Use as directed to check sugars 3 times daily or as directed, Dx: E11.65, #100 lancets, #100 test strips 1 Kit 1 Active torsemide (DEMADEX) 20 mg tablet Take 1 Tablet (20 mg) by mouth daily. 90 Tablet 1 1 Active Eliquis 5 mg tablet Take 1 Tablet (5 mg) by mouth 2 times daily. 180 Tablet 1 1 Active metoprolol tartrate (LOPRESSOR) 25 mg tablet Take 1 Tablet (25 mg) by mouth 2 times daily. 180 Tablet 1 Active Lantus Solostar U-100 Insulin 100 unit/mL (3 mL) solution for injection INJECT 70 UNITS SUBCUTANEOUSLY TWICE DAILY 45 mL 1 1 Active potassium chloride (KLOR-CON) 10 mEq Extended Release tablet Take 1 Tablet (10 mEq) by mouth 2 times daily with meals. 180 Tablet 1 1 Active levothyroxine 25 mcg tablet Take 1 Tablet (25 mcg) by mouth daily in the morning. 90 Tablet 1 1 Active gabapentin (NEURONTIN) 300 mg capsule Take 3 Capsules (900 mg) by mouth daily at bedtime. 270 Capsule 1 1 Active clindamycin HCL (CLEOCIN) 300 mg Capsule Take 1 Capsule (300 mg) by mouth 4 times daily. 40 Capsule 1 Active Insulin [place], Disposable, (BD Ultra-Fine Short Pen Needle) 31 gauge x 5/16 Needle USE DAILY DIRECTED, DX: E11.9 100 Each 3 1 Active OneTouch Verio test strips Strip USE DIRECTED TO CHECK BLOOD SUGARS THREE TIMES DAILY 100 Each 2 1 Active nystatin (MYCOSTATIN) 100,000 unit/gram Cream APPLY TO AFFECTED AREA TWICE DAILY 30 Gram 1 Active amiodarone (Pacerone) 200 mg tablet Take 1 tablet by mouth twice daily 180 Tablet 1 Active Active Problems Problem Noted Date Diagnosed Date DM type 2 with diabetic foot ulcer 04/08/2020 Overview (04/08/2020): ADDED PER PVQ RESPONSE DOS 04.08.2020 Type 2 diabetes mellitus wit h hyperglycemia, with long-term current use of insulin 04/08/2020 Overview (04/08/2020): ADDED PER PVQ RESPONSE DOS 04.08.2020 Type 2 diabetes mellitus with polyneuropathy 01/2020 Overview (04/08/2020): ADDED PER PVQ RESPONSE DOS 04.08.2020 Dvtrcli of sm int w perforation and abscess w bl eeding 12/22/2019 CHF (congestive heart failure) 12/22/2019 Chronic kidney disease, stage III (moderate) 05/2018 Overview (04/08/2020): CHANGED PER PVQ RESPONSE DOS . Atrial fibrillation, chronic 02/10/2018 Type 2 diabetes mellitus wit h stage 3 chronic kidney disease, with long-term current use of insulin 04/30/2015 Overview (04/08/2020): CHANGED PER PVQ RESPONSE DOS . Gait difficulty 03/05/2014 Intertrigo 07/04/2013 Sleep apnea 12/14/2012 Colon cancer screening 02/06/2012 Hyperlipidemia 12/30/2011 Overview (12/30/2011): LDL: 109 (12/12) HDL: 40 (12/12) Chronic low back pain 12/29/2011 Osteoarthritis of lumbar spine 12/29/2011 Prostate cancer screening 12/29/2011 Overview (12/30/2011): PSA: 12/12 Hx of Diverticulitis, S/P Hemicolectomy (around 1999) 11/10/2011 Morbid obesity 04/21/2008 Overview (04/21/2008): nutrasystems diet Arthralgia 04/21/2008 Overview (04/21/2008): soma 350 tid Hypertensive heart and kidney disease with heart failure 04/21/2008 Overview (04/08/2020): CHANGED PER PVQ RESPONSE DOS 04.08.2020 Nonspecific elevation of lev els of transaminase or lactic acid dehydrogenase (LDH) 04/21/2008 Neuropathy 04/21/2008 Immunizations Immunization Administration Dates Next Due (ADACEL/BOOSTRIX)(10 YR UP) TDAP VACCINE, 0.5ML, IM 08/09/2012 (PNEUMOVAX 23)(50 YRS UP) PN EUMOCOCCAL POLYSACCHARIDE (PPV23) 0.5 ML, IM 12/29/2011 (TENIVAC)(7 YRS UP) TETANUS AND DIPHTHERIA TOXOIDS, ADSORBED (5 LF OF TETANUS TOXOID AND 2 LF OF DIPHTHERIA TOXOID), 0.5ML (PF), IM 05/20/2019 INFLUENZA VACCINE QUADRIVALENT 3 YR UP PF IM ,03/29/2018 03/29/2019 INFLUENZA VACCINE QUADRIVALENT 6 MOS UP PF IM Social History Tobacco Use Types Packs/Day Years Used Date Smoking Tobacco: Never Smokeless Tobacco: Never Alcohol Use Standard Drinks/Week Comments No 0 (1 standard drink = 0.6 oz pur e alcohol) past hx Sex and Gender Information Value Date Recorded Sex Assigned at Not on file 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 Gender Identity Not on file Sexual Orientation Not on file Occupation Industry Job Start Date Job End Date Not on file Not on file Not on file Not on file Last Filed Vital Signs Vital Sign Reading Time Taken Comments Blood Pressure 120/64 12/24/2020 12:30 PM CDT Pulse 58 12/24/2020 12:30 PM CDT Temperature 36.5 C (97.7 F) 12/24/2020 12:30 PM CDT Respiratory Rate 15 12/24/2020 12:30 PM CDT Oxygen Saturation 97% 12/24/2020 12:30 PM CDT Inhaled Oxygen Concentration - - Weight 238.1 kg (525 lb) 12/24/2020 12:30 PM CDT Height 188 cm (6' 2 ) 12/24/2020 12:30 PM CDT Body Mass Index 67.41 12/24/2020 12:30 PM CDT Plan of Treatment Health Maintenance Due Date Last Done Comments FIT/ DNA Q 3 YEARS (AUTO ORDER) 12/14/1975 FIT/FOBT Q 1 YEAR (AUTO ORDER) 12/14/1975 FLEX SIG/CT COLONOGRAPHY Q 5 YEARS (AUTO ORDER) 12/14/1975 Traditional Medicare (O) A nnual Wellness Visit 1976 COLORECTAL CANCER SCREENING (AUTO ORDER) 2002 COLORECTAL SCREENING 2002 Colorectal Cancer Screening (AUTO ORDER) 2002 Colorectal Cancer Screening 2002 FIT-DNA Q 3 years 2002 FIT/FOBT Q 1 year 2002 Flex Sig/CT Colonography Q 5 years 2002 RSV VACCINE (60+ or ) (1 - Risk 50-74 years 1-dose series) 12/14/2007 ZOSTER VACCINE (1 of 2) 12/14/2007 PNEUMOCOCCAL VACCINE 50+ YEA RS (2 of 2 - PCV) 12/28/2012 12/29/2011 DIABETES ANNUAL RETINAL EXAM 10/13/2019 10/12/2018 DIABETES ANNUAL FOOT EXAM 04/08/20212019, 04/08/2020, 02/14/2019, Additional history exists DIABETES MICROALBUMIN ANNUAL SCREEN 04/08/2021 04/08/2020, 07/31/2018, 11/03/2011 DIABETES HBA1C Q 6 MONTHS 05/08/20212020, 04/08/2020, 05/20/2019, Additional history exists LDL CHOLESTEROL ANNUAL 11/05/2021 1, 04/08/2020, 05/20/2019, Additional history exists INFLUENZA VACCINE (#1) 2025 0, 05/20/2019, 03/29/2018 DTAP/TDAP/TD VACCINES (3 - T d or Tdap) 05/20/2029 05/20/2019, 08/09/2012 Procedures Procedure Name Priority Date/Time Associated Diagnosis Comments LIPID PANEL Routine 11/05/2020 10:20 AM CDT Type 2 diabetes mellitus with hyperglycemia, with long-term current use of insulin ([facility]) HEMOGLOBIN A1C Routine 11/05/2020 10:20 AM CDT Type 2 diabetes mellitus with hyperglycemia, with long-term current use of insulin ([facility]) MICROALBUMIN/CREATI NINE RATIO, RANDOM UR Routine 04/08/2020 8:52 AM CDT Type 2 diabetes mellitus without complication, unspecified whether retirement insulin use ([facility]) from Last 3 Months or Most Recently Relevant to Health Maintenance Results * (ABNORMAL) HEMOGLOBIN A1C (11/05/2020 10:20 AM CDT) HEMOGLOBIN A1C 6.2(H) See Comment % 11/05/2020 9:14 PM CDT [facility] EST. AVG GLUCOSE, A1C 131 mg/dL 11/05/2020 9:14 PM CDT [facility] Blood Collection / Unknown 11/05/2020 10:20 AM CDT 11/05/2020 8:00 PM CDT [facility] - 11/05/2020 9:14 PM CDT HGB A1C INTERPRETATION NORMAL: <5.7% PRE-DIABETES: 5.7 - 6.4% DIABETES: 6.5% OR GREATER Falsely low A1C measurements can occur when: 1. Anemia and/or hemolytic anemia is present. 2. Hemoglobin variants present. 3. Renal failure. 4. Transfusion of blood product in the last 120 days. We recommend ordering a fructosamine test([id number]) to more accurately assess glycemic status if any of the above conditions are present. us Cezar LAMBERT CHEMISTRY ORDERABLES Final Re sult [facility] CLIA# [id number] [facility] [place] [address] * (ABNORMAL) LIPID PANEL (11/05/2020 10:20 AM CDT) CHOLESTEROL 160 <200 mg/dL 11/05/2020 8:53 PM CDT [facility] TRIGLYCERIDE 140 <150 mg/dL 11/05/2020 8:53 PM CDT [facility] HDL 33(L) 40 - 59 mg/dL 11/05/2020 8:53 PM CDT [facility] LDL CALCULATED 99 <100 mg/dL 11/05/2020 8:53 PM CDT [facility] NON-HDL CHOLESTEROL 127 <130 mg/dL 11/05/2020 8:53 PM T [facility] Blood Collection / Unknown 11/05/2020 10:20 AM CDT 11/05/2020 8:01 PM CDT [facility] - 11/05/2020 8:53 PM CDT TOTAL CHOLESTEROL mg/dL Desirable <200 Borderline high 200-239 High >=240 TRIGLYCERIDES mg/dL Normal <150 Borderline high 150-199 High 200-499 Very high >=500 HDL CHOLESTEROL mg/dL Low <40 Normal 40-59 Desirable >=60 NON HDL CHOLESTEROL mg/dL Optimal <130 Near Optimal 130-159 Borderline High 160-189 Very High >=190 CALCULATED LDL mg/dL LDL <70, OPTIMAL if have Atherosclerotic cardiovascular disease (ASCVD) or intermediate or higher (>7.5%) 10 year risk of ASCVD including most adults with diabetes. LDL <100, Optimal in adult patients with low (<7.5%) 10 year ASCVD risk LDL 100-160, Suboptimal LDL >160, High LDL >190, Very high ATPIII Guidelines Reference Ranges for Lipid Panels (NCEP/AMA) . Cezar LAMBERT CHEMISTRY ORDERABLES Final Re sult [facility] CLIA# [id number] [address] [place] [address] * (ABNORMAL) MICROALBUMIN/CREATININE RATIO, RANDOM UR (04/08/2020 8:52 AM CDT) MICROALBUMIN, URINE 21.0 No Reference Range mg/dL 04/08/2020 9:35 PM CDT [facility] CREATININE, URINE 91.4 40.0 - 278.0 mg/dL 04/08/2020 9:35 PM T [facility] Comment:Reference Range vari es with fluid intake and diet. MICROALBUMIN/ CREAT RATIO, UR 229.8(H) <17.0 mg/g 04/08/2020 9:35 PM T [facility] Urine URINE SPECIMEN OBTAINED BY CLEAN CATCH PROCEDURE / Unknown Collection / Unknown 04/08/2020 8:52 AM CDT 04/08/2020 8:07 PM CDT Narrative [facility] - 04/08/2020 9:35 PM CDT Condition Microalbumin/Creat ratio Normal Males <17 Normal Females <25 Microalbuminuria Males 17-299 Microalbuminuria Females 25-299 Overt proteinuria >=300 Cezar LAMBERT URINE ORDERABLES Final Result [facility]# [id number] [address] [place] [address] from Last 3 Months or Most Recently Relevant to Health Maintenance Insurance MEDICAID [place] MEDICARE PART A AND B Care Teams Machine Setter Sheet Metal Relationship Specialty Start Date End Date Marie Mitchell MD [address] [phone] PCP - General Family Practice 01/20/17
--- OUTSIDE RECORDS SUMMARY | 2025-06-17 12:17 | XMS_ITS | Clinical Summary ---
Author Organization [facility] Address [address] [place] [address] Care Team Providers Care Mechanotherapist Name Role Phone Marie Mitchell MD Primary Care Provider Social History Tobacco Use Types Packs/Day Years Used Date Smoking Tobacco: Never Assessed Sex and Gender Information Value Date Recorded Sex Assigned at Not on file Legal Sex Male 12:08 PM CDT Gender Identity Not on file Sexual Orientation Not on file Plan of Treatment Not on file Insurance MEDICARE Care Teams Mechanotherapist Relationship Specialty Start Date End Date Marie Mitchell MD PCP - General Family Medicine 10/04/21
--- OUTSIDE RECORDS SUMMARY | 2025-06-17 12:17 | XMS_ITS | Encounter Summary ---
Author Organization [facility] Address [address] [place] [address] Care Team Providers Care Storage Manager Name Role Phone Marie Mitchell MD Primary Care Provider [phone] Encounter Details Date Type Department Care Team (Late st Contact Info) Description 09/04/2007 Outpatient Historical [facility] [place] [address] [phone] Cezar Fernandez, [place] NO ADDRESS ON FILE Social History Tobacco Use Types Packs/Day Years Used Date Smoking Tobacco: Never Assessed Sex and Gender Information Value Date Recorded Sex Assigned at Not on file 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
--- OUTSIDE RECORDS SUMMARY | 2025-06-17 12:17 | XMS_ITS | Clinical Summary ---
Author Organization [facility] Address [address] [place] [address] Care Team Providers Care Patients Transporter Name Role Phone Benjamin Cardenas MD Primary Care Provider [phone] Allergies Active Allergy Reactions Criticality Noted Date Comments Aspirin Unknown 04/18/2008 Hydrocodone-Acetaminophe n Other (See Comments) 04/21/2009 Hydromorphone Unknown 08/26/2022 Liraglutide Nausea and Vomiting Low 02/06/2012 Metronidazole Unknown 08/25/2022 Vancomycin Other (See Comments),Hives High 06/08/2021 Red man syndrome Medications Blood-Glucose Meter Kit Use as directed to check sugars 3 times daily or as directed, Dx: E11.65, #100 lancets, #100 test strips 1 Kit 0 021 Active acetaminophen (TYLENOL) 500 mg tablet Take 500 mg by mouth every 6 hours as needed. Active non-adherent bandage (POLYMEM [employer]ESSING TOPICAL) Apply to affected area. Apply to left heel and leg. Active ascorbic acid, vitamin C, (Vitamin C) 250 mg tablet Take 1 Tablet (250 mg) by mouth daily. Take with iron tablet daily. 022 Active sennosides-docusa te sodium (SENNA-S) 8.6-50 mg tablet Take 1 Tablet by mouth 2 times daily. 60 Tablet 5 023 Active omeprazole (PriLOSEC) 40 mg Capsule, Delayed Release(E.C.)Vanessa cations:Gastroeso phageal reflux disease, unspecified whether esophagitis present Take 1 Capsule (40 mg) by mouth daily. 90 Capsule 1 023 Active nystatin (NYSTOP) 100,000 unit/gram powderIndications :Jock itch Apply to affected area 2 times daily. 1 Gram 023 Active sildenafiL (VIAGRA) 50 mg tablet Take 1-2 Tablets (50-100 mg) by mouth 1 time daily as needed for Erectile Dysfunction. 10 Tablet 5 024 Active Blood-Glucose Meter,Continuous (Dexcom G6 Clinical Psychology Professor)Indicati ons:Type 2 diabetes mellitus with stage 3b chronic kidney disease, with long-term current use of insulin (CMS/[facility]),Type 2 diabetes mellitus with polyneuropathy ([facility]) Use to monitor blood glucose continuously throughout the day. 1 Each 024 Active Blood-Glucose Transmitter (Dexcom G6 Transmitter) DeviceIndications :Type 2 diabetes mellitus with stage 3b chronic kidney disease, with long-term current use of insulin (CMS/HCC),Type 2 diabetes mellitus with polyneuropathy (CMS/HCC) Fasten on top of the sensor to wirelessly send data to the hairspring i inspector. Must be changed every 3 months. 1 Each 3 024 Active Blood-Glucose Sensor (Dexcom G6 Sensor) DeviceIndications :Type 2 diabetes mellitus with stage 3b chronic kidney disease, with long-term current use of insulin (CMS/HCC),Type 2 diabetes mellitus with polyneuropathy ([facility]) Discreetly worn under clothing to measure glucose levels just underneath the skin. Must change sensor every 10 days. 1 Each 12 024 Active Miscellaneous Medical SupplyIndications :Chronic congestive heart failure, unspecified heart failure type (CMS/HCC),Venous stasis ulcer of other part of lower leg with necrosis of bone, unspecified laterality, unspecified whether varicose veins present (CMS/HCC) Foam wedge for pressure relief and leg elevation. Dx:I50.9, I83.009 1 Each 024 Active blood sugar diagnostic (Accu-Chek Guide test strips) StripIndications: Type 2 diabetes mellitus with stage 3b chronic kidney disease, with long-term current use of insulin ([facility]) Use to check blood sugar three times daily Dx: E11.65; substitution allowed 100 Strip 5 024 Active Lactobacillus Acidophilus Capsule Take 1 Each by mouth daily. 023 Active metoprolol tartrate (LOPRESSOR) 25 mg tabletIndications :Atrial fibrillation, chronic (CMS/HCC),Chronic congestive heart failure, unspecified heart failure type (CMS/HCC) Take 0.5 Tablets (12.5 mg) by mouth 2 times daily. Hold if HR<60 90 Tablet 1 024 Active cholecalciferol 1,250 mcg (50,000 unit) CapsuleIndication s:Vitamin D insufficiency Take 1 Capsule (50,000 Units) by mouth every 7 days. 12 Capsule 3 024 Active calcium as carbonate (OS-NATE) 1,250 mg (500 mg elemental) tabletIndications :Vitamin D insufficiency Take 1 Tablet (500 mg) by mouth daily. 90 Tablet 3 024 Active furosemide (LASIX) 20 mg tabletIndications :Chronic diastolic congestive heart failure (CMS/HCC) Take 1 Tablet (20 mg) by mouth 1 time daily as needed for Other (See Comment) (Swelling). 30 Tablet 11 024 Active semaglutide (Ozempic) 2 mg/dose (8 mg/3 mL) Pen InjectorIndicatio ns:Type 2 diabetes mellitus with stage 3b chronic kidney disease, with long-term current use of insulin ([facility]),Type 2 diabetes mellitus with polyneuropathy ([facility]) Inject 2 mg by subcutaneous injection every 7 days. Dose increase 3 mL 5 025 Active amiodarone (CORDARONE) 200 mg tabletIndications :Atrial fibrillation, chronic (CMS/HCC) Take 1 Tablet (200 mg) by mouth daily. 100 Tablet 3 025 Active albuterol sulfate HFA 90 mcg/actuation aerosol inhaler Take 2 Puffs by inhalation every 6 hours as needed for Shortness of Breath or Wheezing. 18 Gram 025 Active ferrous sulfate (Iron, Ferrous Sulfate,) 325 mg (65 mg iron) tabletIndications :Iron deficiency anemia, unspecified iron deficiency anemia type Take 1 Tablet (325 mg) by mouth daily in the morning. ON AN EMPTY STOMACH WITH VITAMIN C 250MG 100 Tablet 3 Active apixaban (Eliquis) 5 mg tabletIndications :Atrial fibrillation, chronic (CMS/HCC) Take 1 Tablet (5 mg) by mouth 2 times daily. 200 Tablet 3 025 Active clotrimazole-beta methasone (LOTRISONE) 1-0.05 % CreamIndications: Intertrigo Apply to affected area 2 times daily. 45 Gram 2 025 Active levothyroxine 100 mcg tabletIndications :Acquired hypothyroidism TAKE 1 TABLET BY MOUTH ONCE DAILY (DOSE INCREASE) 90 Tablet 1 025 Active insulin glargine U-300 conc (TOUJEO) 300 unit/mL pen syringeIndication s:Type 2 diabetes mellitus with stage 3b chronic kidney disease, with long-term current use of insulin ([facility]),Type 2 diabetes mellitus with polyneuropathy ([facility]) Inject 70 Units by subcutaneous injection daily with breakfast. 15 mL 5 025 Active prochlorperazine maleate (COMPAZINE) 5 mg tabletIndications :Nausea TAKE 1 TABLET BY MOUTH EVERY 6 HOURS NEEDED FOR NAUSEA /EMESIS 90 Tablet Active Insulin [place], Disposable, (BD Ultra-Fine Short Pen Needle) 31 gauge x 5/16 Needle USE DIRECTED 100 Each 3 025 Active oxyCODONE-acetami nophen (PERCOCET) 10-325 mg TabletIndications :Perirectal abscess,Non-press ure chronic ulcer of lower leg with fat layer exposed, unspecified laterality ([facility]/HCC) Take 1 Tablet by mouth every 8 hours as needed for Pain, Severe. Max Daily Amount: 3 Tablets 40 Tablet Active gabapentin (NEURONTIN) 300 mg capsule Take 2 Capsules (600 mg) by mouth every 8 hours. 025 Active bacitracin zinc 500 unit/gram Ointment Apply to affected area 2 times daily. 025 Active methocarbamoL (ROBAXIN) 500 mg tablet Take 1 Tablet (500 mg) by mouth every 6 hours. 025 Active miconazole nitrate (ALOE VESTA,CRITIC AID CLEAR AF) 2 % OintmentIndicatio ns:for moisture associated skin breakdown in folds Apply to affected area 2 times daily. Active oxyCODONE (ROXICODONE) 15 mg tabletIndications :S/P AKA (above knee amputation) bilateral (CMS/HCC) Take 1 Tablet (15 mg) by mouth every 4 hours as needed for Pain. Max Daily Amount: 90 mg Active polyethylene glycol (MIRALAX) 17 gram Powder in Packet Take 1 Packet (17 Grams) by mouth 2 times daily. Active zinc OXIDE-cod liver oil (DESITIN) 40 % Paste Apply to affected area see administration instructions. Active naloxone (NARCAN) 4 mg/spray [place], Non-Aerosol EMERGENCY USE ONLY: Administer 1 spray (4 mg) in one nostril one time. May repeat in alternating nostrils every 2-3 min until responsive or EMS arrives. Active lisinopriL (PRINIVIL) 10 mg tabletIndications :Type 2 diabetes mellitus with stage 3b chronic kidney disease, with long-term current use of insulin (CMS/HCC),Type 2 diabetes mellitus with polyneuropathy (CMS/HCC) Take 1 Tablet (10 mg) by mouth daily. 100 Tablet 3 2024 Discontinued gabapentin (NEURONTIN) 300 mg capsuleIndication s:Type 2 diabetes mellitus with polyneuropathy (CMS/HCC) Take 2 Capsules (600 mg) by mouth 2 times daily. 360 Capsule 3 2024 Discontinued cefdinir (OMNICEF) 300 mg capsule Take 1 Capsule (300 mg) by mouth every 12 hours. Take at the onset of infectious symptoms 20 Capsule 1 2024 Discontinued Active Problems Problem Noted Date Diagnosed Date Postoperative hematoma of mu sculoskeletal structure following musculoskeletal procedure 05/20/2025 Decubitus ulcer of coccygeal region, unspecified pressure ulcer stage 05/20/2025 Chronic ulcer of sacral region 05/20/2025 Urinary tract infection without hematuria 2024 Atelectasis 05/18/2025 Post-op pain 05/17/2025 Leukocytosis 05/17/2025 S/P AKA (above knee amputation) bilateral 2024 Acute osteomyelitis of right foot 05/13/2025 Diabetic ulcer of right midf oot associated with type 2 diabetes mellitus, with necrosis of bone 05/13/2025 Diabetic ulcer of left midfo ot associated with type 2 diabetes mellitus, with muscle involvement without evidence of necrosis 05/13/2025 Pseudomonas infection 05/12/2025 Acute on chronic anemia 05/07/2025 Insulin dependent type 2 diabetes mellitus 05/07 Stage 3a chronic kidney disease 05/07/2025 Open wound of both lower extremities with compli cation 05/07/2025 Cellulitis of both lower extremities 05/06/2025 Rectal fistula, complex, persistent 05/21/2024 Chronic multifocal osteomyelitis of right foot 0 12/28/2023 Wheelchair dependence 02/24/2022 Iron deficiency anemia 02/24/2022 Acquired hypothyroidism 02/24/2022 Lymphedema of both lower extremities 02/24/2022 Statin myopathy 02/24/2022 PAD (peripheral artery disease) 01/28/2022 Non-pressure chronic ulcer o f lower leg with fat layer exposed 01/28/2022 Benign hypertension 01/28/2022 Perirectal abscess 12/28/2021 Hematochezia 04/22/2021 DM type 2 with diabetic foot ulcer 04/08/2020 Overview (10/30/2020): ADDED PER PVQ RESPONSE DOS ..2019 Type 2 diabetes mellitus with polyneuropathy 01/2020 Overview (10/30/2020): ADDED PER PVQ RESPONSE DOS 10..2019 Chronic diastolic congestive heart failure 12/21 Dvtrcli of sm int w perforation and abscess w bl eeding 12/22/2019 Atrial fibrillation, chronic 02/10/2018 Type 2 diabetes mellitus wit h stage 3 chronic kidney disease, with long-term current use of insulin 04/30/2015 Overview (10/29/2020): CHANGED PER PVQ RESPONSE DOS 10..2019 Gait difficulty 03/05/2014 Intertrigo 07/04/2013 Sleep apnea 12/14/2012 Hyperlipidemia 12/30/2011 Overview (10/29/2020): LDL: 109 (6/12) HDL: 40 (12/12) Chronic low back pain 12/29/2011 Osteoarthritis of lumbar spine 12/29/2011 Hx of Diverticulitis, S/P Hemicolectomy (around 1999) 11/10/2011 Arthralgia 04/21/2008 Overview (10/28/2020): soma 350 tid Neuropathy 04/21/2008 Morbid obesity with BMI of 50.0-59.9, adult 04/03 Overview (10/28/2020): nutrasystems diet Nonspecific elevation of lev els of transaminase or lactic acid dehydrogenase (LDH) 04/21/2008 Hypertensive heart and kidney disease with heart failure 04/21/2008 Overview (10/28/2020): CHANGED PER PVQ RESPONSE DOS 10..2019 Resolved Problems Problem Noted Date Diagnosed Date Resolved Date Rectal pain 04/22/2021 02/24/2022 Lower abdominal pain 04/22/2021 022 Type 2 diabetes mellitus wit h hyperglycemia, with long-term current use of insulin 04/08/2020 Overview (10/30/2020): ADDED PER PVQ RESPONSE DOS 10.7.2019 Chronic kidney disease, stage III (moderate) 8 01/10/2023 Overview (10/29/2020): CHANGED PER PVQ RESPONSE DOS 10.7.2019 Colon cancer screening 02/06/201202/24 Prostate cancer screening 12/29/2011 Overview (10/29/2020): PSA: 12/12 Encounters Date Type Department Care Team Description 06/03/2025 External Device Data STL ABSTRACTION Provider, Abstract 06/03/2025 Telephone [facility] [place] [place] [address] [facility] [address] [place] [address] Heaven Vila NP Missed follow up visit 05/28/2025 Telephone [facility] Family Medicine [place] [address] Benjamin Cardenas MD Provider Call 05/27/2025 4:50 AM ELECTRICIAN REFINERY - 05/27/2025 11:59 PM ELECTRICIAN REFINERY Hospital Encounter [facility] [address] [place] [address] Esther Courtney MD Ambulance, [facility] Discharge Disposition: Intermediate Care Facility 05/15/2025 11:01 AM ELECTRICIAN REFINERY - 05/15/2025 2:48 PM ELECTRICIAN REFINERY Surgery [facility] Operating Room [address] [place] [address] Francine Rosas MD LEG AMPUTATION ABOVE KNEE 05/15/2025 10:18 AM ELECTRICIAN REFINERY Anesthesia Event [facility] Operating Room [address] [place] [address] Chencho Londono MD [place], Krish Arias MD 05/13/2025 External Device Data STL ABSTRACTION Provider, Abstract 05/13/2025 External Device Data STL ABSTRACTION Provider, Abstract 05/13/2025 External Device Data STL ABSTRACTION Provider, Abstract 05/06/2025 2:35 PM ELECTRICIAN REFINERY - 05/27/2025 11:13 AM ELECTRICIAN REFINERY Hospital Encounter [facility] 3[facility] Surgical [address] [place] [address] Shekhar Todd MD Virji, MD Shlomo Bernal Pratik, MD Randhawa, MD Chivo Carranza Chanchal, MD Shaffer, Elizabeth Anne, MD Cellulitis of both lower extremities Discharge Disposition: Longterm Fac(SNF) with Medicare Certification in Anticipation of Skilled Care 05/06/2025 7:05 AM ELECTRICIAN REFINERY - 05/06/2025 11:59 PM ELECTRICIAN REFINERY Hospital Encounter [facility] Emergency [address] [address] Ambulance, [facility] Discharge Disposition: Short term general hospital 05/06/2025 [facility] [address] [address] Benjamin Cardenas MD Perirectal abscess; Non-pressure chronic ulcer of lower leg with fat layer exposed, unspecified laterality (CMS/HCC) 04/23/[address] [address] Benjamin Cardenas MD Provider Call 04/15/[address] [address] Benjamin Cardenas MD Perirectal abscess; Non-pressure chronic ulcer of lower leg with fat layer exposed, unspecified laterality (CMS/HCC) 04/06/2025 Results Follow-Up [address] [address] Benjamin Cardenas MD T4 FREE, TSH, COMPREHENSIVE METABOLIC PANEL, Additional followed-up results: 2 04/02/[address] [address] Benjamin Cardenas MD Perirectal abscess; Non-pressure chronic ulcer of lower leg with fat layer exposed, unspecified laterality (CMS/HCC) 03/25/[address] [phone] Marie Mitchell MD 03/20/[address] [address] Benjamin Cardenas MD Nausea; Perirectal abscess; Non-pressure chronic ulcer of lower leg with fat layer exposed, unspecified laterality (CMS/HCC) 03/18/[address] [place] [address] Benjamin Cardenas MD Nausea from Last 3 Months Immunizations Immunization Administration Dates Next Due (ADACEL/BOOSTRIX)(10 YR UP) TDAP VACCINE, 0.5ML, IM 08/09/2012 (PFIZER)(12 YR UP) COVID-19 VACCINE - EMERGENCY USE AUTHORIZATION, MRNA, [id number](PF) 30 MCG/0.3 ML IM SUSP 06/08/2021,08/31/2020 (PNEUMOVAX 23)(50 YRS UP) PN EUMOCOCCAL POLYSACCHARIDE (PPV23) 0.5 ML, IM 09/19/2021,12/29/2011 (TENIVAC)(7 YRS UP) TETANUS AND DIPHTHERIA TOXOIDS, ADSORBED (5 LF OF TETANUS TOXOID AND 2 LF OF DIPHTHERIA TOXOID), 0.5ML (PF), IM 05/20/2019 INFLUENZA VACCINE HIGH DOSE QUADRIVALENT 65 YR UP PF IM 05/03/2023,04/18/2023 INFLUENZA VACCINE HIGH DOSE TRIVALENT SPLIT VIRUS, (65 YR UP), 0.5ML (PF), IM 03/13/2025 INFLUENZA VACCINE QUADRIVALENT 3 YR UP PF IM ,03/29/2018 INFLUENZA VACCINE QUADRIVALENT 6 MOS UP PF IM ,04/08/2020 04/07/2022 INFLUENZA VACCINE TRIVALENT SPLIT VIRUS, (6 MOS UP), 0.5ML (PF), IM 04/17/2024 Influenza Seasonal Unspecified Formulation IM Social History Tobacco Use Types Packs/Day Years Used Date Smoking Tobacco: Never Smokeless Tobacco: Never Tobacco Cessation:Counseling Given: No Alcohol Use Standard Drinks/Week Comments No 0 (1 standard drink = 0.6 oz pur e alcohol) Food Insecurity Answer Date Recorded Do you find you are eating l ess than you should because you can t pay for food? No 05/06/2025 Transportation Needs Answer Date Record ed Have you gone without health care because you didn t have a way to get there? Or worry about transportation for future doctor visits, pick out hand medication, etc.? No 2024 Housing Stability Answer Date Recorded Do you worry you won t have a steady place to sleep or struggle to pay rent or mortgage? No 05/06/2025 Utility Needs Answer Date Recorded Do you have difficulty payin g for utility costs (electric, water or gas bills)? No 05/06/2025 Medication Needs Answer Date Recorded Have you skipped taking medi cation due to cost or worry you can t afford new medications? No 05/06/2025 Feeling Safe Answer Date Recorded Are you in a relationship wi th someone who hurts you emotionally and/or physically? No 05/06/2025 Food Insecurity Answer Date Recorded Patient needs follow up regardin 05/06/2025 Transportation Needs Answer Date Record ed Patient needs follow up regardin 05/06/2025 Utility Needs Answer Date Recorded Patient needs follow up regardin 05/06/2025 Sex and Gender Information Value Date Recorded Sex Assigned at Not on file Legal Sex Male 11:16 AM ELECTRICIAN REFINERY Gender Identity Not on file Sexual Orientation Not on file Last Filed Vital Signs Vital Sign Reading Time Taken Comments Blood Pressure 136/55 05/27/2025 7:36 AM ELECTRICIAN REFINERY Pulse 50 05/27/2025 7:36 AM ELECTRICIAN REFINERY RN notified via secure chat Temperature 36.7 C (98.1 F) 05/27/2025 7:36 AM ELECTRICIAN REFINERY Respiratory Rate 18 05/27/2025 7:36 AM ELECTRICIAN REFINERY Oxygen Saturation 92% 05/27/2025 7:3 6 AM ELECTRICIAN REFINERY Inhaled Oxygen Concentration - - Weight 170.6 kg (376 lb 3.2 oz) 05/24/2025 3:36 AM ELECTRICIAN REFINERY Height 188 cm (6' 2 ) 05/06/2025 8:22 PM ELECTRICIAN REFINERY Body Mass Index 48.3 05/06/2025 8:22 PM ELECTRICIAN REFINERY Plan of Treatment Upcoming Encounters Date Type Department Care Team (Late st Contact Info) Description 06/24/2025 3:40 PM ELECTRICIAN REFINERY Video Visit [facility] [address] [address] Benjamin Cardenas MD [address] [address] Health Maintenance Due Date Last Done Comments FIT/ DNA Q 3 YEARS (AUTO ORDER) 12/14/1975 FIT/FOBT Q 1 YEAR (AUTO ORDER) 12/14/1975 FLEX SIG/CT COLONOGRAPHY Q 5 YEARS (AUTO ORDER) 12/14/1975 FIT-DNA Q 3 years 2002 FIT/FOBT Q 1 year 2002 Flex Sig/CT Colonography Q 5 years 2002 RSV VACCINE (60+ or ) (1 - Risk 50-74 years 1-dose series) 12/14/2007 ZOSTER VACCINE (1 of 2) 12/14/2007 DIABETES ANNUAL RETINAL EXAM 10/13/2019 10/12/2018 PNEUMOCOCCAL VACCINE 50+ YEA RS (2 of 2 - PCV) 09/19/2022 09/19/2021, 12/29/2011 COVID-19 Vaccine (6 - 2024-2 6 season) 2025 10/25/2021, 06/08/2021, 09/20/2020, Additional history exists DIABETES MICROALBUMIN ANNUAL SCREEN 08/06/2025 08/06/2024, 07/25/2022, 04/08/2020, Additional history exists LDL CHOLESTEROL ANNUAL 08/06/2025 , 05/01/2024, 07/25/2023, Additional history exists DIABETES HBA1C Q 6 MONTHS 09/10/20252024, 08/06/2024, 05/01/2024, Additional history exists DIABETES: A1C (Auto Order) 03/13/202603/13, 08/06/2024, 05/01/2024, Additional history exists Traditional Medicare (ACO) A nnual Wellness Visit 03/14/2026 03/13/2025, 07/25/2023 DTAP/TDAP/TD VACCINES (3 - T d or Tdap) 05/20/2029 05/20/2019, 08/09/2012 COLORECTAL CANCER SCREENING (AUTO ORDER) 02/16/2032 02/15/2022 COLORECTAL SCREENING 02/16/2032 02/15/2022 Colorectal Cancer Screening (AUTO ORDER) 02/16/2032 Colorectal Cancer Screening 02/16/2032 INFLUENZA VACCINE Completed 03/13/2025, , 05/03/2023, Additional history exists Medical Devices Implanted Type Area Owner Operator Device Identifier Shelf Expiration Date Model / Serial / Lot Wax Bone Natural 2.5gm Ylw [id number] - [id number] Implanted:Qty: 1 on 05/15/2025 by Francine Rosas MD at [facility] Hemostatic N/A: Leg [employer] [id number] 07/09/2029 [id number] / / [id number] Wax Bone Natural 2.5gm Ylw [id number] - [id number] Implanted:Qty: 1 on 05/15/2025 by Francine Rosas MD at [facility] Hemostatic N/A: Leg [employer] [id number] 07/09/2029 [id number] / / [id number] Procedures Procedure Name Priority Date/Time Associated Diagnosis Comments TELEMETRY REPORT 05/28/2025 2:41 AM ELECTRICIAN REFINERY POC GLUCOSE Routine 05/27/2025 7:21 AM ELECTRICIAN REFINERY POC GLUCOSE Routine 05/26/2025 8:54 PM ELECTRICIAN REFINERY POC GLUCOSE Routine 05/26/2025 5:45 PM ELECTRICIAN REFINERY POC GLUCOSE Routine 05/26/2025 12:04 PM ELECTRICIAN REFINERY POC GLUCOSE Routine 05/26/2025 7:35 AM ELECTRICIAN REFINERY DIFFERENTIAL, MANUAL Routine 05/26/2025 6:21 AM ELECTRICIAN REFINERY CBC WITH DIFFERENTIAL Routine 05/26/2025 6:21 AM ELECTRICIAN REFINERY BASIC METABOLIC PANEL Routine 05/26/2025 6:20 AM ELECTRICIAN REFINERY POC GLUCOSE Routine 05/25/2025 8:06 PM ELECTRICIAN REFINERY POC GLUCOSE Routine 05/25/2025 4:54 PM ELECTRICIAN REFINERY POC GLUCOSE Routine 05/25/2025 12:28 PM ELECTRICIAN REFINERY POC GLUCOSE Routine 05/25/2025 7:35 AM ELECTRICIAN REFINERY DIFFERENTIAL, MANUAL Routine 05/25/2025 4:45 AM ELECTRICIAN REFINERY BASIC METABOLIC PANEL Routine 05/25/2025 4:45 AM ELECTRICIAN REFINERY CBC WITH DIFFERENTIAL Routine 05/25/2025 4:45 AM ELECTRICIAN REFINERY POC GLUCOSE Routine 05/24/2025 8:07 PM ELECTRICIAN REFINERY POC GLUCOSE Routine 05/24/2025 5:02 PM ELECTRICIAN REFINERY POC GLUCOSE Routine 05/24/2025 12:29 PM ELECTRICIAN REFINERY POC GLUCOSE Routine 05/24/2025 7:50 AM ELECTRICIAN REFINERY POC GLUCOSE Routine 05/23/2025 8:56 PM ELECTRICIAN REFINERY POC GLUCOSE Routine 05/23/2025 5:28 PM ELECTRICIAN REFINERY POC GLUCOSE Routine 05/23/2025 12:30 PM ELECTRICIAN REFINERY POC GLUCOSE Routine 05/23/2025 7:37 AM ELECTRICIAN REFINERY POC GLUCOSE Routine 05/22/2025 10:25 PM ELECTRICIAN REFINERY POC GLUCOSE Routine 05/22/2025 6:04 PM ELECTRICIAN REFINERY POC GLUCOSE Routine 05/22/2025 12:58 PM ELECTRICIAN REFINERY POC GLUCOSE Routine 05/22/2025 9:49 AM ELECTRICIAN REFINERY DIFFERENTIAL, MANUAL Routine 05/22/2025 4:08 AM ELECTRICIAN REFINERY BASIC METABOLIC PANEL Routine 05/22/2025 4:08 AM ELECTRICIAN REFINERY CBC WITH DIFFERENTIAL Routine 05/22/2025 4:08 AM ELECTRICIAN REFINERY POC GLUCOSE Routine 05/21/2025 9:31 PM ELECTRICIAN REFINERY POC GLUCOSE Routine 05/21/2025 5:29 PM ELECTRICIAN REFINERY POC GLUCOSE Routine 05/21/2025 12:24 PM ELECTRICIAN REFINERY POC GLUCOSE Routine 05/21/2025 8:09 AM ELECTRICIAN REFINERY DIFFERENTIAL, MANUAL Routine 05/21/2025 4:11 AM ELECTRICIAN REFINERY BASIC METABOLIC PANEL Routine 05/21/2025 4:11 AM ELECTRICIAN REFINERY CBC WITH DIFFERENTIAL Routine 05/21/2025 4:11 AM ELECTRICIAN REFINERY POC GLUCOSE Routine 05/20/2025 8:55 PM ELECTRICIAN REFINERY POC GLUCOSE Routine 05/20/2025 5:23 PM ELECTRICIAN REFINERY URINE CULTURE Routine 05/20/2025 5:07 PM ELECTRICIAN REFINERY POC GLUCOSE Routine 05/20/2025 12:[address] ABDOMEN PELVIS WO CONTRAST Routine 05/20/2025 11:[address] FEMUR WO CONTRAST LEFT Routine 05/20/2025 11:[address] FEMUR WO CONTRAST RIGHT Routine 05/20/2025 11:15 AM ELECTRICIAN REFINERY POC GLUCOSE Routine 05/20/2025 7:41 AM ELECTRICIAN REFINERY DIFFERENTIAL, MANUAL Routine 05/20/2025 5:09 AM ELECTRICIAN REFINERY BASIC METABOLIC PANEL Routine 05/20/2025 5:09 AM ELECTRICIAN REFINERY CBC WITH DIFFERENTIAL Routine 05/20/2025 5:09 AM ELECTRICIAN REFINERY POC GLUCOSE Routine 05/19/2025 8:58 PM ELECTRICIAN REFINERY POC GLUCOSE Routine 05/19/2025 5:26 PM ELECTRICIAN REFINERY HEMOGLOBIN AND HEMATOCRIT Timed Study 05/19/2025 4:56 PM ELECTRICIAN REFINERY POC GLUCOSE Routine 05/19/2025 12:06 PM ELECTRICIAN REFINERY TRANSFUSE PACKED RED BLOOD CELLS Routine 05/19/2025 11:11 AM ELECTRICIAN REFINERY TYPE AND SCREEN Routine 05/19/2025 8:50 AM ELECTRICIAN REFINERY POC GLUCOSE Routine 05/19/2025 7:29 AM ELECTRICIAN REFINERY PREPARE RED BLOOD CELLS Routine 05/19/2025 5:48 AM ELECTRICIAN REFINERY DIFFERENTIAL, MANUAL Routine 05/19/2025 4:19 AM ELECTRICIAN REFINERY BASIC METABOLIC PANEL Routine 05/19/2025 4:19 AM ELECTRICIAN REFINERY CBC WITH DIFFERENTIAL Routine 05/19/2025 4:19 AM ELECTRICIAN REFINERY POC GLUCOSE Routine 05/18/2025 10:59 PM ELECTRICIAN REFINERY POC GLUCOSE Routine 05/18/2025 4:25 PM ELECTRICIAN REFINERY PROTEIN , RANDOM URINE Routine 05/18/2025 3:57 PM ELECTRICIAN REFINERY EXTRA TUBE (URINE GALEANO) Routine 05/18/2025 3:57 PM ELECTRICIAN REFINERY URINALYSIS W/REFLEX MICROSCOPIC Routine 05/18/2025 3:57 PM ELECTRICIAN REFINERY URINE CULTURE Routine 05/18/2025 3:57 PM ELECTRICIAN REFINERY POC GLUCOSE Routine 05/18/2025 12:04 PM ELECTRICIAN REFINERY XR CHEST PA OR AP 1 VW Routine 05/18/2025 11:13 AM ELECTRICIAN REFINERY BASIC METABOLIC PANEL Stat 05/18/2025 9:37 AM ELECTRICIAN REFINERY CBC WITH DIFFERENTIAL Stat 05/18/2025 9:36 AM ELECTRICIAN REFINERY POC GLUCOSE Routine 05/18/2025 7:51 AM ELECTRICIAN REFINERY POC GLUCOSE Routine 05/17/2025 8:22 PM ELECTRICIAN REFINERY POC GLUCOSE Routine 05/17/2025 5:16 PM ELECTRICIAN REFINERY HEMOGLOBIN AND HEMATOCRIT Timed Study 05/17/2025 4:40 PM ELECTRICIAN REFINERY PROTIME-INR Routine 05/17/2025 4:40 PM ELECTRICIAN REFINERY RT ASSESS AND TREAT Routine 05/17/2025 2 :54 PM ELECTRICIAN REFINERY POC GLUCOSE Routine 05/17/2025 12:35 PM ELECTRICIAN REFINERY TRANSFUSE PACKED RED BLOOD CELLS Routine 05/17/2025 12:19 PM ELECTRICIAN REFINERY PREPARE RED BLOOD CELLS Routine 05/17/2025 11:45 AM ELECTRICIAN REFINERY RETICULOCYTES Routine 05/17/2025 10:00 AM ELECTRICIAN REFINERY DIFFERENTIAL, MANUAL Routine 05/17/2025 10:00 AM ELECTRICIAN REFINERY BASIC METABOLIC PANEL Routine 05/17/2025 10:00 AM ELECTRICIAN REFINERY CBC WITH DIFFERENTIAL Routine 05/17/2025 10:00 AM ELECTRICIAN REFINERY POC GLUCOSE Routine 05/17/2025 7:30 AM ELECTRICIAN REFINERY POC GLUCOSE Routine 05/16/2025 10:19 PM ELECTRICIAN REFINERY POC GLUCOSE Routine 05/16/2025 4:25 PM ELECTRICIAN REFINERY POC GLUCOSE Routine 05/16/2025 11:45 AM ELECTRICIAN REFINERY POC GLUCOSE Routine 05/16/2025 7:31 AM ELECTRICIAN REFINERY PHOSPHORUS Routine 05/16/2025 5:14 AM ELECTRICIAN REFINERY MAGNESIUM LEVEL Routine 05/16/2025 5:14 AM ELECTRICIAN REFINERY COMPREHENSIVE METABOLIC PANEL Routine 05/16/2025 5:14 AM ELECTRICIAN REFINERY CBC WITH DIFFERENTIAL Routine 05/16/2025 5:14 AM ELECTRICIAN REFINERY POC GLUCOSE Routine 05/15/2025 8:16 PM ELECTRICIAN REFINERY POC GLUCOSE Routine 05/15/2025 4:26 PM ELECTRICIAN REFINERY CBC WITHOUT DIFFERENTIAL Stat 05/15/2025 4:07 PM ELECTRICIAN REFINERY HEMOGLOBIN AND HEMATOCRIT Routine 05/15/2025 1:59 PM ELECTRICIAN REFINERY POC GLUCOSE Routine 05/15/2025 1:50 PM ELECTRICIAN REFINERY PATHOLOGY Pathology 05/15/2025 12:14 PM ELECTRICIAN REFINERY TRANSFUSE PACKED RED BLOOD CELLS Routine 05/15/2025 11:43 AM ELECTRICIAN REFINERY WOUND CLOSURE VACUUM ASSISTED 05/15/2025 11:01 AM ELECTRICIAN REFINERY LEG AMPUTATION ABOVE OR BELOW KNEE 05/15/2025 11:01 AM ELECTRICIAN REFINERY TN ANES INSERT ENDOTRACHEAL AIRWAY Routine 05/15/2025 10:55 AM ELECTRICIAN REFINERY POC GLUCOSE Routine 05/15/2025 8:24 AM ELECTRICIAN REFINERY PREPARE RED BLOOD CELLS Routine 05/15/2025 7:48 AM ELECTRICIAN REFINERY PREPARE RED BLOOD CELLS Routine 05/15/2025 7:48 AM ELECTRICIAN REFINERY PREPARE RED BLOOD CELLS Stat 05/15/2025 7:48 AM ELECTRICIAN REFINERY TYPE AND SCREEN Stat 05/15/2025 5:57 AM ELECTRICIAN REFINERY BASIC METABOLIC PANEL Routine 05/15/2025 4:50 AM ELECTRICIAN REFINERY CBC WITH DIFFERENTIAL Routine 05/15/2025 4:50 AM ELECTRICIAN REFINERY POC GLUCOSE Routine 05/14/2025 8:58 PM ELECTRICIAN REFINERY POC GLUCOSE Routine 05/14/2025 6:06 PM ELECTRICIAN REFINERY LMW HEPARIN ACTIVITY Timed Study 05/14/2025 1:11 PM ELECTRICIAN REFINERY POC GLUCOSE Routine 05/14/2025 12:23 PM ELECTRICIAN REFINERY POC GLUCOSE Routine 05/14/2025 7:58 AM ELECTRICIAN REFINERY BASIC METABOLIC PANEL Routine 05/14/2025 4:09 AM ELECTRICIAN REFINERY CBC WITH DIFFERENTIAL Routine 05/14/2025 4:09 AM ELECTRICIAN REFINERY POC GLUCOSE Routine 05/13/2025 9:28 PM ELECTRICIAN REFINERY XR FOOT 3+ VW BILAT Routine 05/13/2025 5 :53 PM ELECTRICIAN REFINERY POC GLUCOSE Routine 05/13/2025 5:48 PM ELECTRICIAN REFINERY POC GLUCOSE Routine 05/13/2025 12:03 PM ELECTRICIAN REFINERY POC GLUCOSE Routine 05/13/2025 7:45 AM ELECTRICIAN REFINERY BASIC METABOLIC PANEL Routine 05/13/2025 4:32 AM ELECTRICIAN REFINERY CBC WITH DIFFERENTIAL Routine 05/13/2025 4:32 AM ELECTRICIAN REFINERY POC GLUCOSE Routine 05/12/2025 10:18 PM ELECTRICIAN REFINERY MRI TIBIA FIBULA W WO CONT RIGHT Routine 05/12/2025 9:54 PM ELECTRICIAN REFINERY MRI TIBIA FIBULA W WO CONTRAST LEFT Routine 05/12/2025 9:54 PM ELECTRICIAN REFINERY MRI FOOT W WO CONTRAST RIGHT Routine 05/12/2025 9:53 PM ELECTRICIAN REFINERY MRI FOOT W WO CONTRAST LEFT Routine 05/12/2025 9:53 PM ELECTRICIAN REFINERY POC GLUCOSE Routine 05/12/2025 5:03 PM ELECTRICIAN REFINERY EKG 12-LEAD Routine 05/12/2025 1:40 PM ELECTRICIAN REFINERY LMW HEPARIN ACTIVITY Timed Study 05/12/2025 1:33 PM ELECTRICIAN REFINERY POC GLUCOSE Routine 05/12/2025 12:11 PM ELECTRICIAN REFINERY POC GLUCOSE Routine 05/12/2025 8:23 AM ELECTRICIAN REFINERY BASIC METABOLIC PANEL Routine 05/12/2025 4:45 AM ELECTRICIAN REFINERY CBC WITH DIFFERENTIAL Routine 05/12/2025 4:45 AM ELECTRICIAN REFINERY POC GLUCOSE Routine 05/11/2025 4:24 PM ELECTRICIAN REFINERY POC GLUCOSE Routine 05/11/2025 11:41 AM ELECTRICIAN REFINERY POC GLUCOSE Routine 05/11/2025 7:42 AM ELECTRICIAN REFINERY BASIC METABOLIC PANEL Routine 05/11/2025 2:02 AM ELECTRICIAN REFINERY CBC WITH DIFFERENTIAL Routine 05/11/2025 2:02 AM ELECTRICIAN REFINERY POC GLUCOSE Routine 05/10/2025 11:46 AM ELECTRICIAN REFINERY POC GLUCOSE Routine 05/10/2025 7:50 AM ELECTRICIAN REFINERY BASIC METABOLIC PANEL Routine 05/10/2025 4:34 AM ELECTRICIAN REFINERY CBC WITH DIFFERENTIAL Routine 05/10/2025 4:34 AM ELECTRICIAN REFINERY POC GLUCOSE Routine 05/09/2025 9:00 PM ELECTRICIAN REFINERY POC GLUCOSE Routine 05/09/2025 5:16 PM ELECTRICIAN REFINERY POC GLUCOSE Routine 05/09/2025 12:07 PM ELECTRICIAN REFINERY POC GLUCOSE Routine 05/09/2025 7:40 AM ELECTRICIAN REFINERY BASIC METABOLIC PANEL Routine 05/09/2025 4:23 AM ELECTRICIAN REFINERY CBC WITH DIFFERENTIAL Routine 05/09/2025 4:23 AM ELECTRICIAN REFINERY POC GLUCOSE Routine 05/08/2025 8:40 PM ELECTRICIAN REFINERY POC GLUCOSE Routine 05/08/2025 5:18 PM ELECTRICIAN REFINERY POC GLUCOSE Routine 05/08/2025 12:17 PM ELECTRICIAN REFINERY BASIC METABOLIC PANEL Routine 05/08/2025 10:16 AM ELECTRICIAN REFINERY CBC WITH DIFFERENTIAL Routine 05/08/2025 10:[address] LOW EXT WO CONTRAST LEFT Routine 05/08/2025 10:[address] LOW EXT WO CONTRAST RIGHT Routine 05/08/2025 10:10 AM ELECTRICIAN REFINERY POC GLUCOSE Routine 05/08/2025 7:43 AM ELECTRICIAN REFINERY POC GLUCOSE Routine 05/07/2025 9:53 PM ELECTRICIAN REFINERY POC GLUCOSE Routine 05/07/2025 5:47 PM ELECTRICIAN REFINERY US TRANSCUTANEOUS OXYGEN BEN MULTI Routine 05/07/2025 3:24 PM ELECTRICIAN REFINERY POC GLUCOSE Routine 05/07/2025 11:54 AM ELECTRICIAN REFINERY POC GLUCOSE Routine 05/07/2025 8:26 AM ELECTRICIAN REFINERY BASIC METABOLIC PANEL Routine 05/07/2025 4:01 AM ELECTRICIAN REFINERY CBC WITH DIFFERENTIAL Routine 05/07/2025 4:01 AM ELECTRICIAN REFINERY WOUND CULTURE WITH GRAM STAIN Routine 05/07/2025 2:52 AM ELECTRICIAN REFINERY POC GLUCOSE Routine 05/06/2025 11:20 PM ELECTRICIAN REFINERY XR TIBIA AND FIBULA 2 VW BILAT Routine 05/06/2025 11:00 PM ELECTRICIAN REFINERY POC GLUCOSE Stat 05/06/2025 5:04 PM ELECTRICIAN REFINERY BLOOD CULTURE Stat 05/06/2025 4:54 PM ELECTRICIAN REFINERY BLOOD CULTURE Stat 05/06/2025 4:54 PM ELECTRICIAN REFINERY BLOOD CULTURE Stat 05/06/2025 4:54 PM ELECTRICIAN REFINERY BLOOD CULTURE Stat 05/06/2025 4:54 PM ELECTRICIAN REFINERY C-REACTIVE PROTEIN Stat 05/06/2025 12 :04 PM ELECTRICIAN REFINERY SEDIMENTATION RATE Stat 05/06/2025 12 :04 PM ELECTRICIAN REFINERY BRAIN NATRIURETIC PEPTIDE, BNP OR PROBNP Stat 05/06/2025 12:04 PM ELECTRICIAN REFINERY COMPREHENSIVE METABOLIC PANEL Stat 05/06/2025 12:04 PM ELECTRICIAN REFINERY CBC WITH DIFFERENTIAL Stat 05/06/2025 12:04 PM ELECTRICIAN REFINERY HEMOGLOBIN A1C Routine 03/13/2025 4:49 PM CDT Type 2 diabetes mellitus with stage 3b chronic kidney disease, with long-term current use of insulin ([facility]) Type 2 diabetes mellitus with polyneuropathy ([facility]) MICROALBUMIN/CREATINI NE RATIO, RANDOM UR Routine 08/06/2024 9:53 AM ELECTRICIAN REFINERY Type 2 diabetes mellitus with stage 3b chronic kidney disease, with long-term current use of insulin ([facility]/HCC) Type 2 diabetes mellitus with polyneuropathy ([facility]/HCC) LIPID PANEL Routine 08/06/2024 9:43 AM ELECTRICIAN REFINERY Type 2 diabetes mellitus with stage 3b chronic kidney disease, with long-term current use of insulin ([facility]) Type 2 diabetes mellitus with polyneuropathy (CMS/HCC) from Last 3 Months or Most Recently Relevant to Health Maintenance Results * TELEMETRY REPORT (05/28/2025 2:41 AM ELECTRICIAN REFINERY) Provider Scanning ECG ORDERABLES Final Result * (ABNORMAL) POC GLUCOSE (05/27/2025 7:21 AM ELECTRICIAN REFINERY) Only the most recent of80 resultswithin the time period is included. Pathologist [facility] GLUCOSE POC 134(H) 74 - 99 mg/dL 05/27/2025 7:21 AM [facility] SPECIMEN SOURCE, GLUCOSE POC Capillary 05/27/2025 7:21 AM [facility] Blood, whole 05/27/2025 7:21 AM ELECTRICIAN REFINERY 05/27/2025 7:44 AM ELECTRICIAN REFINERY Esther Courtney MD POINT OF CARE TESTING Final Result [facility] CLIA # [id number] [address] [place] [id number] * MANUAL DIFFERENTIAL (05/26/2025 6:21 AM ELECTRICIAN REFINERY) Only the most recent of7 resultswithin the time period is included. Pathologist [facility] PLATELET EST. Adequate 05/26/2025 7:29 AM [facility] [employer] [facility] ANISOCYTOSIS 4+ /hpf 05/26/2025 7:29 AM [facility] POIKILOCYTES 1+ /hpf 05/26/2025 7:29 AM [facility] POLYCHROMASIA 1+ /hpf 05/26/2025 7:29 AM [facility] HYPOCHROMIA 1+ /hpf 05/26/2025 7:29 AM [facility] [employer] [facility] OVALOCYTES 1+ /hpf 05/26/2025 7:29 AM [facility] Blood Venipuncture / Unknown 05/26/2025 6:21 AM ELECTRICIAN REFINERY 05/26/2025 6:59 AM ELECTRICIAN REFINERY Ruddy Hodges MD HEMATOLOGY ORDERABLES CO M Final Result [facility] CLIA # [id number] [address] [address] [place] [address] * (ABNORMAL) CBC WITH DIFFERENTIAL (05/26/2025 6:21 AM ELECTRICIAN REFINERY) Only the most recent of19 resultswithin the time period is included. [facility] WBC 6.4 4.8 - 10.8 K/uL 05/26/2025 7:29 AM [facility] RBC 2.76(L) 4.60 - 6.20 M/uL 05/26/2025 7:29 AM [facility] HEMOGLOBIN 7.4(L) 14.0 - 18.0 g/dL 05/26/2025 7:29 AM [facility] HEMATOCRIT 24.8(L) 41.0 - 53.0 % 05/26/2025 7:29 AM [facility] MCV 89.9 84.0 - 103.0 fL 05/26/2025 7:29 AM [facility] MCH 26.8(L) 27.0 - 34.0 pg 05/26/2025 7:29 AM [facility] MCHC 29.8(L) 30.0 - 35.0 g/dL 05/26/2025 7:29 AM [facility] PLATELETS 401 140 - 440 K/uL 05/26/2025 7:29 AM [facility] MPV 8.2(L) 8.9 - 12.8 fL 05/26/2025 7:29 AM [facility] RDW 21.7(H) 11.0 - 14.5 % 05/26/2025 7:29 AM [facility] RDW-STDEV 70.4(H) 37.0 - 54.0 fL 05/26/2025 7:29 AM [facility] NEUTROPHILS 43 42 - 75 % 05/26/2025 7:29 AM [facility] LYMPHOCYTES 34 24 - 44 % 05/26/2025 7:29 AM [facility] MONOCYTES 13(H) 2 - 10 % 05/26/2025 7:29 AM [facility] EOSINOPHILS 6 0 - 7 % 05/26/2025 7:29 AM [facility] BASOPHILS 1 0 - 1 % 05/26/2025 7:29 AM [facility] IMMATURE GRANULOCYTES 3(H) 0 - 2 % 05/26/2025 7:29 AM [facility] NEUTROPHIL ABSOLUTE 2.72 2.00 - 8.00 K/uL 05/26/2025 7:29 AM [facility] LYMPHOCYTE ABSOLUTE 2.17 1.20 - 4.00 K/uL 05/26/2025 7:29 AM [facility] MONOCYTE ABSOLUTE 0.83(H) 0.10 - 0.60 K/uL 05/26/2025 7:29 AM [facility] EOSINOPHIL ABSOLUTE 0.37 0.00 - 0.70 K/uL 05/26/2025 7:29 AM [facility] BASOPHILS ABSOLUTE 0.08 0.00 - 0.20 K/uL 05/26/2025 7:29 AM [facility] IMMATURE GRANULOCYTES ABSOLUTE 0.22(H) 0.00 - 0.10 K/uL 05/26/2025 7:29 AM [facility] SMEAR REVIEWED: SR - See Smear Review on Manual Diff. 05/26/2025 7:29 AM [facility] Blood Venipuncture / Unknown 05/26/2025 6:21 AM ELECTRICIAN REFINERY 05/26/2025 6:59 AM ELECTRICIAN REFINERY us Ruddy Hodges MD HEMATOLOGY ORDERABLES Fi nal Result [facility] CLIA # [id number] [facility] [address] [place] [address] * (ABNORMAL) BASIC METABOLIC PANEL (05/26/2025 6:20 AM ELECTRICIAN REFINERY) Only the most recent of17 resultswithin the time period is included. SODIUM 141 136 - 145 mmol/L 05/26/2025 7:43 AM [facility] POTASSIUM 3.7 3.5 - 5.1 mmol/L 05/26/2025 7:43 AM [facility] CHLORIDE 105 98 - 107 mmol/L 05/26/2025 7:43 AM [facility] CO2 26 22 - 29 mmol/L 05/26/2025 7:43 AM [facility] CALCIUM 8.7(L) 8.8 - 10.2 mg/dL 05/26/2025 7:43 AM [facility] BUN 22 8 - 23 mg/dL 05/26/2025 7:43 AM [facility] CREATININE 1.37(H) 0.67 - 1.17 mg/dL 05/26/2025 7:43 AM [facility] GLUCOSE 150(H) 74 - 99 mg/dL 05/26/2025 7:43 AM [facility] GFR 57(L) >=60 mL/min/1. 73 sq meter 05/26/2025 7:43 AM [facility] Comment:eGFR calculated with 2020 CKD-EPI equation. Vegetarian diet, extremely high or low muscle mass, and may affect results. Cystatin C with Glomerular Filtration Rate is a suitable alternative for these patients. ANION GAP 10 9 - 20 mmol/L 05/26/2025 7:43 AM [facility] Blood Venipuncture / Unknown 05/26/2025 6:20 AM ELECTRICIAN REFINERY 05/26/2025 6:58 AM ELECTRICIAN REFINERY us Nicolas Waldron MD CHEMISTRY ORDERABLES Final Re sult [facility] CLIA # [id number] [address] [facility] [place] [address] * URINE CULTURE (05/20/2025 5:07 PM ELECTRICIAN REFINERY) Only the most recent of2 resultswithin the time period is included. CULTURE No growth 05/21/2025 12:50 PM ELECTRICIAN REFINERY [facility] Urine (Urine, straight in/out catheter) Collection / Unknown 05/20/2025 5:07 PM ELECTRICIAN REFINERY 05/20/2025 5:53 PM ELECTRICIAN REFINERY Ruddy Hodges MD MICROBIOLOGY - GENERAL O RDERABLES Final Result [facility] CLIA # [id number] [address] [facility] [place] [address] * CT ABDOMEN PELVIS WO CONTRAST (05/20/2025 11:16 AM ELECTRICIAN REFINERY) Anatomical Region Laterality Modality Abdomen Computed Tomogra phy 05/20/2025 11:1 6 AM ELECTRICIAN REFINERY Narrative 05/20/2025 11:49 AM ELECTRICIAN REFINERY Exam: CT ABDOMEN PELVIS WO CONTRAST Date/Time of Exam: 05/20/2025 11:16 AM Reason For Exam: retroperitoneal hematoma. Diagnosis: Open wound of both lower extremities with complication, initial encounter; Open wound of both lower extremities with complication, initial encounter. Technique: CT of the abdomen and pelvis was performed without the administration of intravenous contrast. Comparison: None. Findings: Lower chest: The heart size is mildly enlarged without pericardial effusion. Calcifications involve the mitral valve annulus. There is mild bilateral dependent atelectasis with trace left pleural effusion. No pneumothorax. ABDOMEN: The liver is enlarged at 26.7 cm in craniocaudal extent. There is dependent sludge and stones in the gallbladder. No wall thickening or biliary ductal dilatation. The uninfused appearance of the pancreas, spleen, and adrenal glands is normal. There is bilateral renal cortical thinning and scarring without hydronephrosis. The small bowel caliber is normal without obstruction. The appendix is not dilated. Nonspecific air-fluid levels are present in the colon. Diverticulosis involves the descending and sigmoid colon. There are multiple ventral abdominal wall hernias. The largest is an infraumbilical and contains portions of small bowel without obstruction. Pelvis: Air-fluid level is present in the bladder. No free fluid or inguinal hernia. There is a linear tract extending to the coccyx with irregular erosive changes of the distal coccyx. This also extends to a small perirectal collection containing air extending into the left perirectal space. This measures approximately 3.1 x 3.5 x 4.5 cm. Vascular: Atherosclerosis involves the aorta and major branches. 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 No retroperitoneal hematoma. MUSCULOSKELETAL: The paraspinal and gluteal musculature is atrophic. The osseous structures are demineralized. Degenerative changes are noted in the lower thoracic and lumbar spine. ++++++++++++++++++++ IMPRESSION Dependent atelectasis and trace left pleural effusion. Hepatomegaly. Gallbladder sludge and probable small stones. Colonic diverticulosis. Multiple ventral abdominal wall hernias, the largest of which contain small bowel without obstruction. Air-fluid level of the bladder potentially related to recent instrumentation, but recommend clinical correlation. Decubitus ulcer with erosive changes noted of the distal coccyx with fistulous tract extending to a small perirectal air-fluid collection. Procedure Note Jackson Prabhakar MD - 05/20/2025 Exam: CT ABDOMEN PELVIS WO CONTRAST Date/Time of Exam: 05/20/2025 11:16 AM Reason For Exam: retroperitoneal hematoma. Diagnosis: Open wound of both lower extremities with complication, initial encounter; Open wound of both lower extremities with complication, initial encounter. Technique: CT of the abdomen and pelvis was performed without the administration of intravenous contrast. Comparison: None. Findings: Lower chest: The heart size is mildly enlarged without pericardial effusion. Calcifications involve the mitral valve annulus. There is mild bilateral dependent atelectasis with trace left pleural effusion. No pneumothorax. ABDOMEN: The liver is enlarged at 26.7 cm in craniocaudal extent. There is dependent sludge and stones in the gallbladder. No wall thickening or biliary ductal dilatation. The uninfused appearance of the pancreas, spleen, and adrenal glands is normal. There is bilateral renal cortical thinning and scarring without hydronephrosis. The small bowel caliber is normal without obstruction. The appendix is not dilated. Nonspecific air-fluid levels are present in the colon. Diverticulosis involves the descending and sigmoid colon. There are multiple ventral abdominal wall hernias. The largest is an infraumbilical and contains portions of small bowel without obstruction. Pelvis: Air-fluid level is present in the bladder. No free fluid or inguinal hernia. There is a linear tract extending to the coccyx with irregular erosive changes of the distal coccyx. This also extends to a small perirectal collection containing air extending into the left perirectal space. This measures approximately 3.1 x 3.5 x 4.5 cm. Vascular: Atherosclerosis involves the aorta and major branches. 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 No retroperitoneal hematoma. MUSCULOSKELETAL: The paraspinal and gluteal musculature is atrophic. The osseous structures are demineralized. Degenerative changes are noted in the lower thoracic and lumbar spine. ++++++++++++++++++++ IMPRESSION Dependent atelectasis and trace left pleural effusion. Hepatomegaly. Gallbladder sludge and probable small stones. Colonic diverticulosis. Multiple ventral abdominal wall hernias, the largest of which contain small bowel without obstruction. Air-fluid level of the bladder potentially related to recent instrumentation, but recommend clinical correlation. Decubitus ulcer with erosive changes noted of the distal coccyx with fistulous tract extending to a small perirectal air-fluid collection. Ruddy Hodges MD CT ORDERABLES Final Re sult * CT FEMUR WO CONTRAST LEFT (05/20/2025 11:15 AM ELECTRICIAN REFINERY) Anatomical Region Laterality Modality Lower Extremity Computed Tomogra phy 05/20/2025 11:1 5 AM ELECTRICIAN REFINERY Impressions 05/20/2025 11:52 AM ELECTRICIAN REFINERY IMPRESSION: Please see below. Exam: CT FEMUR WO CONTRAST LEFT Date/Time of Exam: 05/20/2025 11:15 AM Reason For Exam: check for hematoma around AKA sites. Diagnosis: Open wound of both lower extremities with complication, initial encounter; Open wound of both lower extremities with complication, initial encounter. Technique: CT of the left femur was performed without the administration of intravenous contrast. Comparison: Left tibia and fibula radiographs 05/06/2025. Findings: Images degraded by beam hardening artifact related to body habitus. Diffuse osteopenia. Mild vacuum phenomenon of the left sacroiliac joint present. Acute postoperative change of above the knee amputation present. No cortical loss or aggressive osseous erosion identified to suggest CT evidence of acute osteomyelitis. Moderate superior joint space loss of the left hip present. A paucity of productive change for the degree of joint space loss present. Despite the technical soft tissue limitations of CT, significant fatty replacement/volume loss of the musculature of the left pelvis and posterior compartment of the left thigh present. An approximately 8.3 cm (transverse) by 4.5 cm (AP) by 2.9 cm (CC) region of fluid attenuation about the stump of the above the knee amputation present consistent with postsurgical hematoma/seroma. Trace subcutaneous emphysema present. IMPRESSION: 1. Noncontrast CT findings compatible with recent postoperative change of above the knee amputation with noncontrast CT findings consistent with postsurgical hematoma/seroma about the stump of the above the knee amputation. Narrative Procedure Note Xochitl Wyatt MD - 05/20/2025 IMPRESSION: Please see below. Exam: CT FEMUR WO CONTRAST LEFT Date/Time of Exam: 05/20/2025 11:15 AM Reason For Exam: check for hematoma around AKA sites. Diagnosis: Open wound of both lower extremities with complication, initial encounter; Open wound of both lower extremities with complication, initial encounter. Technique: CT of the left femur was performed without the administration of intravenous contrast. Comparison: Left tibia and fibula radiographs 05/06/2025. Findings: Images degraded by beam hardening artifact related to body habitus. Diffuse osteopenia. Mild vacuum phenomenon of the left sacroiliac joint present. Acute postoperative change of above the knee amputation present. No cortical loss or aggressive osseous erosion identified to suggest CT evidence of acute osteomyelitis. Moderate superior joint space loss of the left hip present. A paucity of productive change for the degree of joint space loss present. Despite the technical soft tissue limitations of CT, significant fatty replacement/volume loss of the musculature of the left pelvis and posterior compartment of the left thigh present. An approximately 8.3 cm (transverse) by 4.5 cm (AP) by 2.9 cm (CC) region of fluid attenuation about the stump of the above the knee amputation present consistent with postsurgical hematoma/seroma. Trace subcutaneous emphysema present. IMPRESSION: 1. Noncontrast CT findings compatible with recent postoperative change of above the knee amputation with noncontrast CT findings consistent with postsurgical hematoma/seroma about the stump of the above the knee amputation. Ruddy Hodges MD CT ORDERABLES Final Re sult * CT FEMUR WO CONTRAST RIGHT (05/20/2025 11:15 AM ELECTRICIAN REFINERY) Anatomical Region Laterality Modality Lower Extremity Computed Tomogra phy 05/20/2025 11:1 5 AM ELECTRICIAN REFINERY Impressions 05/20/2025 11:31 AM ELECTRICIAN REFINERY IMPRESSION: Please see below. Exam: CT FEMUR WO CONTRAST RIGHT Date/Time of Exam: 05/20/2025 11:15 AM Reason For Exam: check for hematoma around AKA sites. Diagnosis: Open wound of both lower extremities with complication, initial encounter; Open wound of both lower extremities with complication, initial encounter. Technique: CT of the right femur was performed without the administration of intravenous contrast. Comparison: Right tibia and fibula radiographs 05/06/2025. Findings: Diffuse osteopenia. Mild vacuum phenomenon of the sacroiliac joints present. Images degraded by beam hardening artifact related to the patient's body habitus. Status post above the knee amputation. No cortical loss or aggressive osseous erosion identified to suggest CT evidence of acute osteomyelitis. Surgical skin clips about the stump of the above the knee amputation present. Despite the technical soft tissue limitations of CT, an approximately 4.3 cm (AP) by 6.8 cm (transverse) by 2.8 cm (CC) probable postsurgical hematoma/seroma about the posterior aspect of the stump of the above the knee amputation present. Subcutaneous emphysema about the stump of the above the knee amputation present. Fatty replacement/volume loss of the musculature of the imaged pelvis and right thigh present. IMPRESSION: 1. Post operative change of recent above the knee amputation with subcutaneous emphysema and noncontrast CT findings consistent with post surgical hematoma/seroma involving the posterior aspect of the stump of the above the knee amputation as described. Negative for CT evidence of acute osseous abnormality. Specifically negative for CT evidence of acute osteomyelitis. Narrative Procedure Note Xochitl Wyatt MD - 05/20/2025 IMPRESSION: Please see below. Exam: CT FEMUR WO CONTRAST RIGHT Date/Time of Exam: 05/20/2025 11:15 AM Reason For Exam: check for hematoma around AKA sites. Diagnosis: Open wound of both lower extremities with complication, initial encounter; Open wound of both lower extremities with complication, initial encounter. Technique: CT of the right femur was performed without the administration of intravenous contrast. Comparison: Right tibia and fibula radiographs 05/06/2025. Findings: Diffuse osteopenia. Mild vacuum phenomenon of the sacroiliac joints present. Images degraded by beam hardening artifact related to the patient's body habitus. Status post above the knee amputation. No cortical loss or aggressive osseous erosion identified to suggest CT evidence of acute osteomyelitis. Surgical skin clips about the stump of the above the knee amputation present. Despite the technical soft tissue limitations of CT, an approximately 4.3 cm (AP) by 6.8 cm (transverse) by 2.8 cm (CC) probable postsurgical hematoma/seroma about the posterior aspect of the stump of the above the knee amputation present. Subcutaneous emphysema about the stump of the above the knee amputation present. Fatty replacement/volume loss of the musculature of the imaged pelvis and right thigh present. IMPRESSION: 1. Post operative change of recent above the knee amputation with subcutaneous emphysema and noncontrast CT findings consistent with post surgical hematoma/seroma involving the posterior aspect of the stump of the above the knee amputation as described. Negative for CT evidence of acute osseous abnormality. Specifically negative for CT evidence of acute osteomyelitis. Ruddy Hodges MD CT ORDERABLES Final Re sult * (ABNORMAL) HEMOGLOBIN AND HEMATOCRIT (05/19/2025 4:56 PM ELECTRICIAN REFINERY) Only the most recent of3 resultswithin the time period is included. HEMOGLOBIN 7.7(L) 14.0 - 18.0 g/dL 05/19/2025 5:40 PM ELECTRICIAN REFINERY [facility] [employer] [facility] HEMATOCRIT 25.7(L) 41.0 - 53.0 % 05/19/2025 5:40 PM ELECTRICIAN REFINERY [facility] [employer] [facility] Blood Venipuncture / Unknown 05/19/2025 4:56 PM ELECTRICIAN REFINERY 05/19/2025 5:32 PM ELECTRICIAN REFINERY Ruddy Hodges MD HEMATOLOGY ORDERABLES Fi nal Result Performing Organization Address [facility] Co de Phone Number [facility] [place] CLIA # [id number] [address] [address] [place] [address] * TRANSFUSE RED BLOOD CELLS (05/19/2025 1:50 PM ELECTRICIAN REFINERY) Only the most recent of3 resultswithin the time period is included. Day Rojas MD BLOOD TRANSFUSION ORDERABLES Fin al Result * TYPE AND SCREEN (05/19/2025 8:50 AM ELECTRICIAN REFINERY) Only the most recent of2 resultswithin the time period is included. ABO GROUP O 05/19/2025 9:55 AM ELECTRICIAN REFINERY [facility] [place] RH (D) TYPE Positive 05/19/2025 9:55 AM ELECTRICIAN REFINERY [facility] [place] ANTIBODY SCREEN Negative 05/19/2025 9:55 AM ELECTRICIAN REFINERY [facility] [place] Blood Venipuncture / Unknown 05/19/2025 8:50 AM ELECTRICIAN REFINERY 05/19/2025 9:03 AM ELECTRICIAN REFINERY Day Rojas MD BLOOD BANK ORDERABLES Edited Res ult - Final Performing Organization Address [facility] Co de Phone Number [facility] [place] CLIA#[id number] [address] [place] [address], * PREPARE RED BLOOD CELLS (05/19/2025 5:48 AM ELECTRICIAN REFINERY) Only the most recent of5 resultswithin the time period is included. COMPONENT TYPE [id number] [facility] [employer] [place] COMPONENT IDENTIFICATION [id number] [facility] [place] UNIT ABO O [facility] [place] UNIT RH POS [facility] [place] CROSSMATCH Compatible [facility] [place] COMPONENT STATUS Transfused ME [facility] [place] COMPONENT EXPIRATION DATE/TIME [id number] [facility] [place] COMPONENT CODING SYSTEM [address] [facility] [place] VOLUME, BLOOD PRODUCT 350 [facility] [place] Other, specify 05/19/2025 5: 48 AM ELECTRICIAN REFINERY Day Rojas MD LAB TRANSFUSION ORDERABLES Edite d Result - Final Performing Organization Address City/[facility]/ZIP Co de Phone Number [facility] [place] CLIA#[id number] Formerly [facility] [place] [address], * EXTRA TUBE (URINE GALEANO) (05/18/2025 3:57 PM ELECTRICIAN REFINERY) Urine URINE SPECIMEN OBTAINED BY CLEAN CATCH PROCEDURE / Unknown Collection / Unknown 05/18/2025 3:57 PM ELECTRICIAN REFINERY 05/18/2025 4:06 PM ELECTRICIAN REFINERY Ruddy Hodges MD URINE ORDERABLES Final R esult Performing Organization Address [facility] Co de Phone Number [facility] [employer] [facility] CLIA # [id number] [facility] [address] * (ABNORMAL) PROTEIN/CREATININE RATIO, URINE (05/18/2025 3:57 PM ELECTRICIAN REFINERY) PROTEIN CONCENTRATION 154(H) 0 - 20 mg/dL 05/19/2025 10:11 AM [facility] [employer] [facility] CREATININE, URINE 94.8 40.0 - 278.0 mg/dL 05/19/2025 10:11 AM [facility] Comment:Reference Range vari es with fluid intake and diet. PROTEIN/CREAT RATIO, URINE 1.62(H) 0.00 - 0.19 mg/mg Creatinine 05/19/2025 10:11 AM [facility] [employer] [facility] Urine URINE SPECIMEN OBTAINED BY CLEAN CATCH PROCEDURE / Unknown Collection / Unknown 05/18/2025 3:57 PM ELECTRICIAN REFINERY 05/18/2025 4:06 PM ELECTRICIAN REFINERY Ruddy Hodges MD URINE ORDERABLES Final R esult [facility] CLIA # [id number] [address] [place] [address] [place] [address] * (ABNORMAL) URINALYSIS WITH REFLEX MICROSCOPIC (05/18/2025 3:57 PM ELECTRICIAN REFINERY) COLOR UA Yellow Pale to Dark Yellow 05/18/2025 4:13 PM [facility] CLARITY UA Cloudy(A) Clear 05/18/2025 4:13 PM [facility] SPECIFIC GRAVITY UA 1.020 1.003 - 1.035 05/18/2025 4:13 PM [facility] PH UA 6.0 5.0 - 8.0 05/18/2025 4:13 PM [facility] LEUKOCYTE ESTERASE UA 2+(A) Negative 05/18/2025 4:13 PM [facility] NITRITE UA Negative Negative 05/18/2025 4:13 PM [facility] PROTEIN UA 2+(A) Negative 05/18/2025 4:13 PM [facility] GLUCOSE UA Negative Negative 05/18/2025 4:13 PM [facility] KETONES UA Negative Negative 05/18/2025 4:13 PM [facility] UROBILINOGEN UA <2.0 <2.0 mg/dL 4:13 PM [facility] BILIRUBIN UA Negative Negative 05/18/2025 4:13 PM [facility] BLOOD UA 2+(A) Negative 05/18/2025 4:13 PM [facility] WBC UA 11-25(A) 0 - 2 /hpf 05/18/2025 4:13 PM ELECTRICIAN REFINERY [facility] RBC UA 3-5(A) 0 - 2 /hpf 05/18/2025 4:13 PM ELECTRICIAN REFINERY [facility] BACTERIA UA Negative Negative /hpf 05/18/2025 4:13 PM ELECTRICIAN REFINERY [facility] EPITHELIAL CELLS, URINE 0-5 0 - 5 /hpf 05/18/2025 4:13 PM ELECTRICIAN REFINERY [facility] Urine URINE SPECIMEN OBTAINED BY CLEAN CATCH PROCEDURE / Unknown Collection / Unknown 05/18/2025 3:57 PM ELECTRICIAN REFINERY 05/18/2025 4:06 PM ELECTRICIAN REFINERY Ruddy Carina Hodges MD URINE ORDERABLES Final R esult [facility] CLIA # [id number] [address] [place] [address] * XR CHEST PA OR AP 1 VW (05/18/2025 11:13 AM ELECTRICIAN REFINERY) Anatomical Region Laterality Modality Chest Computed Radiogr aphy 05/18/2025 11:1 3 AM ELECTRICIAN REFINERY Impressions 05/18/2025 11:19 AM ELECTRICIAN REFINERY Impression: The cardiomediastinal structures are within normal limits. Decreased lung expansion with asymmetric elevation of left hemidiaphragm. Mildly increased right paramedian and left lower lobe airspace disease is probably atelectasis. No pneumothorax or definite pleural effusion. Narrative 05/18/2025 11:19 AM ELECTRICIAN REFINERY Exam: XR CHEST PA OR AP 1 VW Date/Time of Exam: 05/18/2025 11:13 AM Reason For Exam: Hypoxia. Diagnosis: Open wound of both lower extremities with complication, initial encounter; Open wound of both lower extremities with complication, initial encounter. Comparison: April 21, 2021. Procedure Note Golden Manzanares MD - 05/18/2025 Exam: XR CHEST PA OR AP 1 VW Date/Time of Exam: 05/18/2025 11:13 AM Reason For Exam: Hypoxia. Diagnosis: Open wound of both lower extremities with complication, initial encounter; Open wound of both lower extremities with complication, initial encounter. Comparison: April 21, 2021. Impression: The cardiomediastinal structures are within normal limits. Decreased lung expansion with asymmetric elevation of left hemidiaphragm. Mildly increased right paramedian and left lower lobe airspace disease is probably atelectasis. No pneumothorax or definite pleural effusion. Ruddy Hodges MD DIAGNOSTIC IMAGING ORDER [place] Final Result * (ABNORMAL) PROTIME-INR (05/17/2025 4:40 PM ELECTRICIAN REFINERY) [facility] PROTIME 15.6(H) 12.7 - 14.9 Seconds 05/17/2025 5:12 PM ELECTRICIAN REFINERY [facility] [employer] [facility] INR 1.2 0.8 - 1.2 05/17/2025 5:12 PM ELECTRICIAN REFINERY [facility] Blood Venipuncture / Unknown 05/17/2025 4:40 PM ELECTRICIAN REFINERY 05/17/2025 4:48 PM ELECTRICIAN REFINERY Narrative [facility] [employer] [facility] - 05/17/2025 5:12 PM ELECTRICIAN REFINERY Expected Values for INR: DVT/PE Goal INR 2.5; range 2.0 - 3.0 Valve Replacement Tissue Goal INR 2.5; range 2.0 - 3.0 Valve Replacement Mechanical Goal INR 3.0; range 2.5 - 3.5 POST-PR Goal INR 2.5; range 2.0 - 3.0 or Goal INR 3.0; range 2.5 - 3.5 Atrial Fibrillation Goal INR 2.5; range 2.0 - 3.0 Ischemic Stroke Goal INR 2.5; range 2.0 - 3.0 Ruddy Hodges MD HEMATOLOGY ORDERABLES Fi nal Result [facility] CLIA # [id number] [facility] [address] * (ABNORMAL) RETICULOCYTES (05/17/2025 10:00 AM ELECTRICIAN REFINERY) [facility] RETICULOCYTES 3.0(H) 0.9 - 2.2 % 05/17/2025 12:43 PM [facility] IMMATURE RETIC FRACTION 32.6(H) 4.3 - 16.9 % 05/17/2025 12:43 PM [facility] RETICULOCYTE, ABSOLUTE 0.0795 0.0260 - 0.0950 10e6/uL 05/17/2025 12:43 PM [facility] RETICULOCYTE HEMOGLOBIN CONTENT 30.8 28.6 - 37.4 pg 05/17/2025 12:43 PM [facility] Blood Venipuncture / Unknown 05/17/2025 10:00 AM ELECTRICIAN REFINERY 05/17/2025 10:10 AM ELECTRICIAN REFINERY us Ruddy Hodges MD HEMATOLOGY ORDERABLES Fi nal Result Performing Organization Address City/[facility]/ZIP Co de Phone Number [facility] CLIA # [id number] [address] [address] * PHOSPHORUS (05/16/2025 5:14 AM ELECTRICIAN REFINERY) [facility] PHOSPHORUS 3.6 2.5 - 4.5 mg/dL 05/16/2025 7:23 AM [facility] Blood Venipuncture / Unknown 05/16/2025 5:14 AM ELECTRICIAN REFINERY 05/16/2025 5:58 AM ELECTRICIAN REFINERY us Byron LAMBERT CHEMISTRY ORDERABLES Final Resul t [facility] CLIA # [id number] [address] [address] * MAGNESIUM LEVEL (05/16/2025 5:14 AM ELECTRICIAN REFINERY) [facility] MAGNESIUM 1.9 1.6 - 2.4 mg/dL 05/16/2025 7:23 AM [facility] Blood Venipuncture / Unknown 05/16/2025 5:14 AM ELECTRICIAN REFINERY 05/16/2025 5:58 AM ELECTRICIAN REFINERY us Byron LAMBERT CHEMISTRY ORDERABLES Final Resul t [facility] CLIA # [id number] [facility] [address] [place] [address] * (ABNORMAL) COMPREHENSIVE METABOLIC PANEL (05/16/2025 5:14 AM ELECTRICIAN REFINERY) Only the most recent of2 resultswithin the time period is included. SODIUM 138 136 - 145 mmol/L 05/16/2025 7:21 AM [facility] POTASSIUM 4.9 3.5 - 5.1 mmol/L 05/16/2025 7:21 AM [facility] CHLORIDE 104 98 - 107 mmol/L 05/16/2025 7:21 AM [facility] CO2 23 22 - 29 mmol/L 05/16/2025 7:21 AM [facility] CALCIUM 8.6(L) 8.8 - 10.2 mg/dL 05/16/2025 7:21 AM [facility] BUN 31(H) 8 - 23 mg/dL 05/16/2025 7:21 AM [facility] CREATININE 1.42(H) 0.67 - 1.17 mg/dL 05/16/2025 7:21 AM [facility] GLUCOSE 245(H) 74 - 99 mg/dL 05/16/2025 7:21 AM [facility] TOTAL PROTEIN 6.4 6.4 - 8.3 g/dL 05/16/2025 7:21 AM [facility] ALBUMIN 2.9(L) 3.5 - 5.2 g/dL 05/16/2025 7:21 AM [facility] BILIRUBIN TOTAL 0.3 0.0 - 1.0 mg/dL 05/16/2025 7:21 AM [facility] ALKALINE PHOSPHATASE 49 40 - 129 U/L 05/16/2025 7:21 AM [facility] AST 18 10 - 50 U/L 05/16/2025 7:21 AM [facility] ALT 10 <=50 U/L 05/16/2025 7:21 AM [facility] GFR 54(L) >=60 mL/min/1. 73 sq meter 05/16/2025 7:21 AM [facility] Comment:eGFR calculated with 2020 CKD-EPI equation. Vegetarian diet, extremely high or low muscle mass, and may affect results. Cystatin C with Glomerular Filtration Rate is a suitable alternative for these patients. ANION GAP 11 9 - 20 mmol/L 05/16/2025 7:21 AM [facility] Blood Venipuncture / Unknown 05/16/2025 5:14 AM ELECTRICIAN REFINERY 05/16/2025 5:58 AM ELECTRICIAN REFINERY us Byron LAMBERT CHEMISTRY ORDERABLES Final Resul t [facility] CLIA # [id number] [address] [place] [address] * (ABNORMAL) CBC WITHOUT DIFFERENTIAL (05/15/2025 4:07 PM ELECTRICIAN REFINERY) WBC 18.1(H) 4.8 - 10.8 K/uL 05/15/2025 4:48 PM [facility] RBC 3.32(L) 4.60 - 6.20 M/uL 05/15/2025 4:48 PM [facility] HEMOGLOBIN 8.3(L) 14.0 - 18.0 g/dL 05/15/2025 4:48 PM [facility] HEMATOCRIT 28.3(L) 41.0 - 53.0 % 05/15/2025 4:48 PM [facility] MCV 85.2 84.0 - 103.0 fL 05/15/2025 4:48 PM ELECTRICIAN REFINERY [facility] MCH 25.0(L) 27.0 - 34.0 pg 05/15/2025 4:48 PM [facility] MCHC 29.3(L) 30.0 - 35.0 g/dL 05/15/2025 4:48 PM ELECTRICIAN REFINERY [facility] PLATELETS 306 140 - 440 K/uL 05/15/2025 4:48 PM [facility] MPV 8.6(L) 8.9 - 12.8 fL 05/15/2025 4:48 PM [facility] RDW 19.5(H) 11.0 - 14.5 % 05/15/2025 4:48 PM [facility] RDW-STDEV 55.5(H) 37.0 - 54.0 fL 05/15/2025 4:48 PM [facility] Blood Venipuncture / Unknown 05/15/2025 4:07 PM ELECTRICIAN REFINERY 05/15/2025 4:17 PM ELECTRICIAN REFINERY us Byron LAMBERT HEMATOLOGY ORDERABLES Final Resu lt [facility] CLIA # [id number] [address] [place] [address] * PATHOLOGY (05/15/2025 12:14 PM ELECTRICIAN REFINERY) CASE REPORT Surgical Pathology Report Case: [id number] Authorizing Provider: Francine Rosas MD Collected: 05/15/2025 12:14 PM Ordering Location: [facility] Received: 05/15/2025 12:43 PM Operating Room Pathologist: Bacilio Mullen MD Specimens: A) - Leg, right B) - Leg, left 4:16 PM ELECTRICIAN REFINERY [facility] FINAL DIAGNOSIS A. Leg, right, gzpur-iyu-ytui amputation - Skin with ulceration, acute and chronic inflammation, and necrosis - Underlying bone with serous fat atrophy, increased marrow fibrosis, and no definitive evidence of acute osteomyelitis on junior sales representative sections - Vessels with calcific atherosclerosis - The soft tissue resection margin is viable B. Leg, left, qziug-jni-omcy amputation - Skin with ulceration, acute and chronic inflammation, and necrosis - Underlying bone with serous fat atrophy, increased marrow fibrosis, and no definitive evidence of acute osteomyelitis on junior sales representative sections - Vessels with calcific atherosclerosis - The soft tissue resection margin is viable Bacilio Mullen MD [id number] 4:16 PM ELECTRICIAN REFINERY [facility] at 1616 ELECTRICIAN REFINERY GROSS DESCRIPTION A. Received fresh labeled Lefty -right leg AKSelin is a right ilfpo-bns-gger amputation specimen including a 29.5 x 10.0 x 9.5 cm left foot and a 47.8 cm extremity extending from the foot. There is a 3.1 cm in length femur extending from the soft tissue resection margin. Digits 1-4 intact with yellow, thickened toenails. Digit 5 is surgically absent and replaced by a 4.5 cm in length well-healed scar. Multiple ulcerative lesions are identified on the anterior, lateral and posterior aspect of the leg and plantar aspect of the foot, that range from 1.5 to 14.7 cm in greatest dimension. The underlying bone appears grossly uninvolved, which is yellow-joseph and firm. Dining Car Server sections are submitted as follows: A1: Skin margin, en face A2: Dining Car Server of ulcers A3: Underlying bone, decal B. Received fresh labeled Lefty -left leg TERRIE is a left mozco-zuw-afwe amputation specimen including a 24.5 x 9.8 x 9.5 cm foot and a 50.5 cm in length extremity extending from the foot. There is a 4.8 cm femur extending from the soft tissue resection. Digits 1-5 are intact with yellow, thickened toenails. Multiple ulcers are identified throughout the posterior and lateral leg, lateral foot and heel, that range from 1.5 to 14.5 cm in greatest dimension. The underlying bone appears grossly involved, which is yellow-joseph and softened. Dining Car Server sections are submitted as follows: B1: Skin margin, en face B2: Dining Car Server of ulcers B3: Underlying bone, decal Grossed by: Lu Berrios MS, PA (ASCP) 5 4:16 PM ELECTRICIAN REFINERY [facility] OPERATIVE PROCEDURE 1: LEG AMPUTATION ABOVE OR BELOW KNEE 5 4:16 PM ELECTRICIAN REFINERY [facility] COMMENT The [employer] voice-activated dictation system may have been used in the creation of this report. Inherent to this system is the possibility of errors in syntax, grammar, punctuation, or other areas that could impact interpretation. If there are interpretive questions about the report, please contact the performing pathologist. Unless gross only is specified in the diagnosis, the microscopic examination substantiates the above cited diagnosis. The performance characteristics of all immunohistochemical stains cited in this report (if any) were determined by the [facility] of [facility] in compliance with CLIA'88 regulations. Some of these tests rely on the use of analyte specific reagents and are subject to specific labeling requirements by the FDA. All controls show appropriate reactivity. This testing was developed by the [facility]ohist[facility] Laboratory of [facility]. It has not been cleared or approved by the FDA. The FDA has determined that such clearance or approval is not necessary. 5 4:16 PM ELECTRICIAN REFINERY [facility] Tissue (Leg, right) Collection / Unknown 05/15/2025 12:14 PM ELECTRICIAN REFINERY 05/15/2025 12:43 PM ELECTRICIAN REFINERY Tissue specimen (specimen) (Leg, left) Collection / Unknown 05/15/2025 12:17 PM ELECTRICIAN REFINERY 05/15/2025 12:43 PM ELECTRICIAN REFINERY Francine Rosas MD PATHOLOGY/CYTOLOGY ORDERAB LES Final Result [facility] CLIA # [id number] [address] [place] [id number] * TN ANES INSERT ENDOTRACHEAL AIRWAY (05/15/2025 10:55 AM ELECTRICIAN REFINERY) Narrative Dennis Plaza CRNA - 05/15/2025 10:55 AM ELECTRICIAN REFINERY Dennis Plaza CRNA 05/15/2025 11:40 AM Airway Date/Time: 05/15/2025 10:55 AM Location: OR Plan: routine intubation Patient Identity Confirmed by: Verbally with patient and armband Airway: not difficult 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 Authorized by: Chencho Londono MD Performed by: Dennis Plaza CRNA Indications and Patient Condition: Indications for Airway Management: Anesthesia Sedation Level: general anesthesia Preoxygenated: yes Patient Position: Sniffing Mask Difficulty Assessment: 0 - not attempted Plan to extubate at end of case: Yes Final Airway Details: Final Airway Type: Endotracheal airway ETT Cuffed: Yes Cuff Volume (mL): 8 Technique Used for Successful ETT Placement: Video laryngoscopy Devices/Methods Used in Placement: Intubating stylet and modified RSI Blade Size: 4 Insertion Site: Oral Video Laryngoscopy Devices: Mazariegos Measured from: Teeth ETT to Teeth (cm): 24 Tube secured with: Tape Placement Verified by: auscultation, end tidal CO2 and chest rise Cormack-Lehane Classification: Grade IIa - partial view of glottis Number of Attempts at Approach: 1 Additional Procedure Information: atraumatic and dentition unchanged Chencho Lonodno MD PROCEDURE/MINOR SURGICAL O RDERABLES Final Result * LMW HEPARIN MONITORING (05/14/2025 1:11 PM ELECTRICIAN REFINERY) Only the most recent of2 resultswithin the time period is included. ANTI-XA LMW HEP 1.78 See Comment IU/mL 05/14/2025 1:35 PM ELECTRICIAN REFINERY [facility] [employer] [facility] Blood Venipuncture / Unknown 05/14/2025 1:11 PM ELECTRICIAN REFINERY 05/14/2025 1:15 PM ELECTRICIAN REFINERY Narrative [facility] - 05/14/2025 1:35 PM ELECTRICIAN REFINERY Enoxaparin (Lovenox) Anti-Xa levels in Adults Obtain peak enoxaparin anti-Xa level at 4hr post dose. For therapeutic anticoagulation: For 1mg/kg Q 12hr dosinhr level should be between 0.5 and 1.2 IU/ml For 1.5mg/kg daily dosinhr level should be >1, but less than 2 IU/ml For thromboprophylaxis: 4hr level should be between 0.2 and 0.6 IU/ml What patients might benefit from anti-Xa monitoring: Patients at extremes of body weight: Less than 45kg Greater than 100kg for thromboprophylaxis Greater than 150kg for therapeutic anticoagulation patients with or without mechanical heart valves should have anti-Xa monitoring throughout --hematology consult may be warranted. Patients with chronic renal insufficiency with calculated creatinine clearance <20ml/min OR on Hemodialysis/CRRT patients should NOT receive enoxaparin. Heparin is preferred. The reference range for this test is specific to the anticoagulant and is not appropriate for monitoring patients on a DOAC protocol. us Josef Keenan MD HEMATOLOGY ORDERABLES Final Result [facility] # [id number] [facility]ly [facility] [address] * XR FOOT 3+ VW BILAT (05/13/2025 5:53 PM ELECTRICIAN REFINERY) Anatomical Region Laterality Modality Ankle / Foot Computed Radiogr aphy 05/13/2025 5:53 PM ELECTRICIAN REFINERY Impressions 05/13/2025 7:21 PM ELECTRICIAN REFINERY IMPRESSION: See below. EXAMINATION: XR FOOT 3+ VW BILAT ASSOCIATED DIAGNOSIS: Other - Please see comments, Comment: Ulcers both feet and osteomyelitis right 4th & 5th metatarsals. Open wound of both lower extremities with complication, initial encounter; Open wound of both lower extremities with complication, initial encounter ORDERING PROVIDER: LAKESHIA SHARMA COMPARISON: No prior radiographs available for comparison. Bilateral lower extremity CT and MRI s performed May 2025. FINDINGS/IMPRESSION: Left foot: Bones are osteopenic. Flexion configurations limits evaluation of patient's digits. There is postsurgical changes from osteotomy involving the distal fifth metatarsal. No displaced fractures. Marrow signal is more fully characterized on recent prior MRI. Soft tissue swelling about the foot. There are superficial soft tissue calcifications seen. Vascular sclerosis. Right foot: Bones are osteopenic. Flexion configurations limits evaluation of patient's digits. Postsurgical changes from subtotal amputation of the fifth ray. Postsurgical changes from osteotomy involving the distal fourth metatarsal. 5 osseous remodeling of the proximal residual fourth metatarsal. No displaced fractures. Marrow signal is more fully characterized on recent prior MRI. Soft tissue prominence about the foot. Vascular sclerosis. Superficial soft tissue calcifications. Narrative Procedure Note Glenn Gonzalez MD - 05/13/2025 IMPRESSION: See below. EXAMINATION: XR FOOT 3+ VW BILAT ASSOCIATED DIAGNOSIS: Other - Please see comments, Comment: Ulcers both feet and osteomyelitis right 4th & 5th metatarsals. Open wound of both lower extremities with complication, initial encounter; Open wound of both lower extremities with complication, initial encounter ORDERING PROVIDER: LAKESHIA SHARMA COMPARISON: No prior radiographs available for comparison. Bilateral lower extremity CT and MRI s performed May 2025. FINDINGS/IMPRESSION: Left foot: Bones are osteopenic. Flexion configurations limits evaluation of patient's digits. There is postsurgical changes from osteotomy involving the distal fifth metatarsal. No displaced fractures. Marrow signal is more fully characterized on recent prior MRI. Soft tissue swelling about the foot. There are superficial soft tissue calcifications seen. Vascular sclerosis. Right foot: Bones are osteopenic. Flexion configurations limits evaluation of patient's digits. Postsurgical changes from subtotal amputation of the fifth ray. Postsurgical changes from osteotomy involving the distal fourth metatarsal. 5 osseous remodeling of the proximal residual fourth metatarsal. No displaced fractures. Marrow signal is more fully characterized on recent prior MRI. Soft tissue prominence about the foot. Vascular sclerosis. Superficial soft tissue calcifications. Lakeshia Sharma DPM DIAGNOSTIC IMAGING ORDERABLES Fi nal Result * MRI TIBIA FIBULA W WO CONT RIGHT (05/12/2025 9:54 PM ELECTRICIAN REFINERY) Anatomical Region Laterality Modality Lower Extremity Magnetic Resonan ce 05/12/2025 9:54 PM ELECTRICIAN REFINERY Impressions 05/13/2025 7:12 AM ELECTRICIAN REFINERY IMPRESSION: Please see below. Exam: MRI TIBIA FIBULA W WO CONT RIGHT Date/Time of Exam: 05/12/2025 9:54 PM Reason For Exam: See Diagnosis. Diagnosis: Open wound of both lower extremities with complication, initial encounter; Open wound of both lower extremities with complication, initial encounter. Technique: MRI of the right tibia/fibula was performed prior to and following the administration of intravenous contrast. Contrast: GADOBENATE DIMEGLUMINE 529 MG/ML(0.1 MMOL/0.2 ML) INTRAVENOUS SOLUTION Given:20 mL. Comparison: Radiographs from 05/06/2025. Findings: The exam is mildly degraded by motion artifact. There is a soft tissue wound involving the lateral aspect of the foot at the level of the base of the fifth metatarsal with underlying marrow signal abnormalities; please refer to the MRI of the foot for further details. There is a moderate degree of subcutaneous soft tissue and mild multifocal muscle edema. There is prominent relatively diffuse muscle atrophy. There is enhancement involving the edematous soft tissues distally compatible with a component of cellulitis. There is no evidence of a discrete fluid collection to suggest abscess formation. There are no marrow signal abnormalities involving the tibia or fibula to suggest the presence of active osteomyelitis. There is no evidence of an acute fracture or dislocation. IMPRESSION: Cellulitis without evidence of osteomyelitis or abscess formation. Narrative Procedure Note Ankush Ramirez, DO - 05/13/2025 IMPRESSION: Please see below. Exam: MRI TIBIA FIBULA W WO CONT RIGHT Date/Time of Exam: 05/12/2025 9:54 PM Reason For Exam: See Diagnosis. Diagnosis: Open wound of both lower extremities with complication, initial encounter; Open wound of both lower extremities with complication, initial encounter. Technique: MRI of the right tibia/fibula was performed prior to and following the administration of intravenous contrast. Contrast: GADOBENATE DIMEGLUMINE 529 MG/ML(0.1 MMOL/0.2 ML) INTRAVENOUS SOLUTION Given:20 mL. Comparison: Radiographs from 05/06/2025. Findings: The exam is mildly degraded by motion artifact. There is a soft tissue wound involving the lateral aspect of the foot at the level of the base of the fifth metatarsal with underlying marrow signal abnormalities; please refer to the MRI of the foot for further details. There is a moderate degree of subcutaneous soft tissue and mild multifocal muscle edema. There is prominent relatively diffuse muscle atrophy. There is enhancement involving the edematous soft tissues distally compatible with a component of cellulitis. There is no evidence of a discrete fluid collection to suggest abscess formation. There are no marrow signal abnormalities involving the tibia or fibula to suggest the presence of active osteomyelitis. There is no evidence of an acute fracture or dislocation. IMPRESSION: Cellulitis without evidence of osteomyelitis or abscess formation. us Donn Avila PA-C MR ORDERABLES Final Re sult * MRI TIBIA FIBULA W WO CONTRAST LEFT (05/12/2025 9:54 PM ELECTRICIAN REFINERY) Anatomical Region Laterality Modality Lower Extremity Magnetic Resonan ce 05/12/2025 9:54 PM ELECTRICIAN REFINERY Impressions 05/13/2025 7:12 AM ELECTRICIAN REFINERY IMPRESSION: Please see below. Exam: MRI TIBIA FIBULA W WO CONTRAST LEFT Date/Time of Exam: 05/12/2025 9:54 PM Reason For Exam: Foot swelling, diabetic, osteomyelitis suspected, xray done. Diagnosis: Open wound of both lower extremities with complication, initial encounter; Open wound of both lower extremities with complication, initial encounter. Technique: MRI of the left tibia/fibula was performed prior to and following the administration of intravenous contrast. Contrast: GADOBENATE DIMEGLUMINE 529 MG/ML(0.1 MMOL/0.2 ML) INTRAVENOUS SOLUTION Given:20 mL. Comparison: CT from 05/08/2025 and radiographs from 05/06/2025. Findings: The exam is degraded by motion artifact. There are multiple soft tissue wound involving the hindfoot. There is moderate subcutaneous soft tissue and mild multifocal muscle edema. There is prominent diffuse muscle atrophy. There is enhancement of the edematous soft tissues distally compatible with a component of cellulitis. There is no evidence of a discrete fluid collection to suggest soft tissue abscess formation. There are edema-like marrow signal abnormalities and enhancement involving the distal tibia, talus and calcaneus which are best appreciated on fluid sensitive sequences and likely reactive in nature. There is a small tibiotalar joint effusion with evidence of underlying synovitis. There is no evidence of an acute fracture or dislocation. There are mild degenerative changes. IMPRESSION: Soft tissue wound involving the posterior and lateral aspects of the foot with marrow signal abnormalities affecting the underlying distal tibia, talus and calcaneus which are likely reactive in nature; short-term follow-up may be of benefit if clinically indicated. Nonspecific tibiotalar joint effusion and synovitis; if there is clinical concern for septic arthropathy, arthrocentesis could assess further. Cellulitis without evidence of abscess formation. Narrative Procedure Note Ankush Ramirez DO - 05/13/2025 IMPRESSION: Please see below. Exam: MRI TIBIA FIBULA W WO CONTRAST LEFT Date/Time of Exam: 05/12/2025 9:54 PM Reason For Exam: Foot swelling, diabetic, osteomyelitis suspected, xray done. Diagnosis: Open wound of both lower extremities with complication, initial encounter; Open wound of both lower extremities with complication, initial encounter. Technique: MRI of the left tibia/fibula was performed prior to and following the administration of intravenous contrast. Contrast: GADOBENATE DIMEGLUMINE 529 MG/ML(0.1 MMOL/0.2 ML) INTRAVENOUS SOLUTION Given:20 mL. Comparison: CT from 05/08/2025 and radiographs from 05/06/2025. Findings: The exam is degraded by motion artifact. There are multiple soft tissue wound involving the hindfoot. There is moderate subcutaneous soft tissue and mild multifocal muscle edema. There is prominent diffuse muscle atrophy. There is enhancement of the edematous soft tissues distally compatible with a component of cellulitis. There is no evidence of a discrete fluid collection to suggest soft tissue abscess formation. There are edema-like marrow signal abnormalities and enhancement involving the distal tibia, talus and calcaneus which are best appreciated on fluid sensitive sequences and likely reactive in nature. There is a small tibiotalar joint effusion with evidence of underlying synovitis. There is no evidence of an acute fracture or dislocation. There are mild degenerative changes. IMPRESSION: Soft tissue wound involving the posterior and lateral aspects of the foot with marrow signal abnormalities affecting the underlying distal tibia, talus and calcaneus which are likely reactive in nature; short-term follow-up may be of benefit if clinically indicated. Nonspecific tibiotalar joint effusion and synovitis; if there is clinical concern for septic arthropathy, arthrocentesis could assess further. Cellulitis without evidence of abscess formation. Donn Avila PA-C MR ORDERABLES Final Re sult * MRI FOOT W WO CONTRAST RIGHT (05/12/2025 9:53 PM ELECTRICIAN REFINERY) Anatomical Region Laterality Modality Ankle / Foot Magnetic Resonan ce 05/12/2025 9:53 PM ELECTRICIAN REFINERY Impressions 05/13/2025 7:10 AM ELECTRICIAN REFINERY IMPRESSION: Please see below. Exam: MRI FOOT W WO CONTRAST RIGHT Date/Time of Exam: 05/12/2025 9:53 PM Reason For Exam: Foot swelling, diabetic, osteomyelitis suspected, xray done. Diagnosis: Open wound of both lower extremities with complication, initial encounter; Open wound of both lower extremities with complication, initial encounter. Technique: MRI of the right foot was performed prior to and following the administration of intravenous contrast. Contrast: GADOBENATE DIMEGLUMINE 529 MG/ML(0.1 MMOL/0.2 ML) INTRAVENOUS SOLUTION Given:20 mL. Comparison: None. Findings: There are postsurgical changes related to partial transmetatarsal amputation of the fourth and fifth rays. There is a soft tissue wound involving the lateral aspect of the foot at the level of the amputation stump. There is prominent subcutaneous soft tissue and mild multifocal muscle edema. There is a prominent degree of diffuse muscle atrophy. There is enhancement involving the edematous soft tissues compatible with a component of cellulitis. There is no evidence of soft tissue abscess formation or infectious tenosynovitis. There are edema-like marrow signal abnormalities and enhancement involving the residual fourth and fifth metatarsals deep to the soft tissue wound consistent with active osteomyelitis. There are edema-like marrow signal abnormalities involving the cuboid which are best appreciated on fluid sensitive sequences and likely reactive in nature. There are fourth and fifth tarsometatarsal joint effusions with underlying synovitis which could reflect reactive changes versus septic arthropathy. There is no evidence of an acute fracture or dislocation. There are mild degenerative changes. IMPRESSION: Soft tissue wound involving the lateral aspect of the foot with marrow signal abnormalities affecting the underlying residual fourth and fifth metatarsals compatible with osteomyelitis. Fourth and fifth tarsometatarsal joint effusions which could reflect septic arthropathy. Cellulitis without evidence of abscess formation. Narrative Procedure Note Ankush Ramirez, DO - 05/13/2025 IMPRESSION: Please see below. Exam: MRI FOOT W WO CONTRAST RIGHT Date/Time of Exam: 05/12/2025 9:53 PM Reason For Exam: Foot swelling, diabetic, osteomyelitis suspected, xray done. Diagnosis: Open wound of both lower extremities with complication, initial encounter; Open wound of both lower extremities with complication, initial encounter. Technique: MRI of the right foot was performed prior to and following the administration of intravenous contrast. Contrast: GADOBENATE DIMEGLUMINE 529 MG/ML(0.1 MMOL/0.2 ML) INTRAVENOUS SOLUTION Given:20 mL. Comparison: None. Findings: There are postsurgical changes related to partial transmetatarsal amputation of the fourth and fifth rays. There is a soft tissue wound involving the lateral aspect of the foot at the level of the amputation stump. There is prominent subcutaneous soft tissue and mild multifocal muscle edema. There is a prominent degree of diffuse muscle atrophy. There is enhancement involving the edematous soft tissues compatible with a component of cellulitis. There is no evidence of soft tissue abscess formation or infectious tenosynovitis. There are edema-like marrow signal abnormalities and enhancement involving the residual fourth and fifth metatarsals deep to the soft tissue wound consistent with active osteomyelitis. There are edema-like marrow signal abnormalities involving the cuboid which are best appreciated on fluid sensitive sequences and likely reactive in nature. There are fourth and fifth tarsometatarsal joint effusions with underlying synovitis which could reflect reactive changes versus septic arthropathy. There is no evidence of an acute fracture or dislocation. There are mild degenerative changes. IMPRESSION: Soft tissue wound involving the lateral aspect of the foot with marrow signal abnormalities affecting the underlying residual fourth and fifth metatarsals compatible with osteomyelitis. Fourth and fifth tarsometatarsal joint effusions which could reflect septic arthropathy. Cellulitis without evidence of abscess formation. us Donn Avila PA-C MR ORDERABLES Final Re sult * MRI FOOT W WO CONTRAST LEFT (05/12/2025 9:53 PM ELECTRICIAN REFINERY) Anatomical Region Laterality Modality Ankle / Foot Magnetic Resonan ce 05/12/2025 9:53 PM ELECTRICIAN REFINERY Impressions 05/13/2025 7:10 AM ELECTRICIAN REFINERY IMPRESSION: Please see below. Exam: MRI FOOT W WO CONTRAST LEFT Date/Time of Exam: 05/12/2025 9:53 PM Reason For Exam: Foot swelling, diabetic, osteomyelitis suspected, xray done. Diagnosis: Open wound of both lower extremities with complication, initial encounter; Open wound of both lower extremities with complication, initial encounter. Technique: MRI of the left foot was performed prior to and following the administration of intravenous contrast. Contrast: GADOBENATE DIMEGLUMINE 529 MG/ML(0.1 MMOL/0.2 ML) INTRAVENOUS SOLUTION Given:20 mL. Comparison: CT from 05/08/2025. Findings: The exam is degraded by motion artifact. There is a soft tissue wound involving the lateral aspect of the foot at the level of the anterior calcaneal process. There is prominent subcutaneous soft tissue and mild multifocal muscle edema. There is prominent diffuse muscle atrophy. There is enhancement involving the edematous soft tissues laterally compatible with a component of cellulitis. There is no evidence of soft tissue abscess formation or infectious tenosynovitis. There is no definitive evidence of osteomyelitis or septic arthropathy. There are postsurgical changes related to partially dictation of the fifth ray. There is no evidence of an acute fracture or dislocation. There are mild degenerative changes. IMPRESSION: Soft tissue wound involving the lateral aspect of the hindfoot with associated cellulitis. No evidence of osteomyelitis or abscess formation. Narrative Procedure Note Ankush Ramirez, DO - 05/13/2025 IMPRESSION: Please see below. Exam: MRI FOOT W WO CONTRAST LEFT Date/Time of Exam: 05/12/2025 9:53 PM Reason For Exam: Foot swelling, diabetic, osteomyelitis suspected, xray done. Diagnosis: Open wound of both lower extremities with complication, initial encounter; Open wound of both lower extremities with complication, initial encounter. Technique: MRI of the left foot was performed prior to and following the administration of intravenous contrast. Contrast: GADOBENATE DIMEGLUMINE 529 MG/ML(0.1 MMOL/0.2 ML) INTRAVENOUS SOLUTION Given:20 mL. Comparison: CT from 05/08/2025. Findings: The exam is degraded by motion artifact. There is a soft tissue wound involving the lateral aspect of the foot at the level of the anterior calcaneal process. There is prominent subcutaneous soft tissue and mild multifocal muscle edema. There is prominent diffuse muscle atrophy. There is enhancement involving the edematous soft tissues laterally compatible with a component of cellulitis. There is no evidence of soft tissue abscess formation or infectious tenosynovitis. There is no definitive evidence of osteomyelitis or septic arthropathy. There are postsurgical changes related to partially dictation of the fifth ray. There is no evidence of an acute fracture or dislocation. There are mild degenerative changes. IMPRESSION: Soft tissue wound involving the lateral aspect of the hindfoot with associated cellulitis. No evidence of osteomyelitis or abscess formation. us Donn Avila PA-C MR ORDERABLES Final Re sult * EKG 12-LEAD (05/12/2025 1:40 PM ELECTRICIAN REFINERY) 05/12/2025 1:40 PM ELECTRICIAN REFINERY Narrative INTERFACE SYSTEM - 05/12/2025 5:40 PM ELECTRICIAN REFINERY [place] [id number] Test Date: 2025-05-12 Pat Name: EDEL HIDALGO Department: 12 Room: [facility] 01 Gender: Male Lathmaker: [id number] : 1955 Requested By: Order Number: [id number] Reading MD: Kyaw Bates Measurements Intervals [place] Rate: 48 P: 58 TN: 288 QRS: 12 QRSD: 118 T: 43 QT: 514 QTc: 459 Interpretive Statements Sinus bradycardia with 1st degree AV block Low voltage QRS Nonspecific intraventricular conduction delay Nonspecific T wave abnormality Abnormal ECG Electronically Signed On 05-12-2025 17:40:11 ELECTRICIAN REFINERY by Kyaw Bates Procedure Note Kyaw Bates MD - 05/12/[address] [address] Test Date: 2025-05-12 Pat Name: EDEL HIDALGO Department: 12 Room: [facility] 01 Gender: Male Lathmaker: [id number] : 1955 Requested By: Order Number: [id number] Reading MD: Kyaw Bates Measurements Intervals [place] Rate: 48 P: 58 TN: 288 QRS: 12 QRSD: 118 T: 43 QT: 514 QTc: 459 Interpretive Statements Sinus bradycardia with 1st degree AV block Low voltage QRS Nonspecific intraventricular conduction delay Nonspecific T wave abnormality Abnormal ECG Electronically Signed On 05-12-2025 17:40:11 ELECTRICIAN REFINERY by Kyaw Bates us Abelino Driver MD ECG ORDERABLES Final Result INTERFACE SYSTEM Refer to clinic/hospital department * CT LOW EXT WO CONTRAST LEFT (05/08/2025 10:10 AM ELECTRICIAN REFINERY) Anatomical Region Laterality Modality Lower Extremity Computed Tomogra phy 05/08/2025 10:1 0 AM ELECTRICIAN REFINERY Impressions 05/08/2025 10:32 AM ELECTRICIAN REFINERY IMPRESSION: Please see below. Exam: CT LOW EXT WO CONTRAST LEFT Date/Time of Exam: 05/08/2025 10:10 AM Reason For Exam: Soft tissue infection suspected, lower leg, no prior imaging;Osteomyelitis, foot. Diagnosis: Open wound of both lower extremities with complication, initial encounter; Open wound of both lower extremities with complication, initial encounter. Technique: CT of the left lower extremity was performed without the administration of intravenous contrast. Comparison: Left tibia/fibula radiographs 05/06/2025. Findings: Images degraded by beam hardening artifact related to the body habitus. Diffuse osteopenia. Vacuum phenomenon of the sacral iliac joints present. No CT evidence of acute fracture or dislocation identified. Periarticular tricompartmental degenerative change of the knee greatest within the patellofemoral compartment. No additional significant joint space loss or productive change is seen. No cortical loss or aggressive osseous erosion identified to suggest CT evidence of acute osteomyelitis. Despite the technical soft tissue limitations of CT fatty replacement/volume loss of the left gluteal musculature and of the musculature involving the posterior compartment of the thigh and of the left lower extremity present. Nonspecific circumferential skin thickening of the left lower extremity greatest distally. An approximately 1.9 cm (transverse) by 2.0 cm (CC) soft tissue defect/ulceration about the lateral aspect of the midfoot present with adjacent skin thickening. Negative for CT evidence of a discrete drainable fluid collection. Incidental note of partial surgical resection of the fifth metatarsal. IMPRESSION: 1. Soft tissue defect/ulceration about the lateral aspect of the midfoot with CT findings suspicious for adjacent cellulitis with otherwise nonspecific circumferential skin thickening about the left lower extremity as described. Negative for definite CT evidence of acute osteomyelitis at this time. If high clinical concern for osteomyelitis further assessment with MRI or three-phase nuclear medicine bone scan would be recommended. 2. Status post partial fifth metatarsal resection arthroplasty. Narrative Procedure Note Xochitl Wyatt MD - 05/08/2025 IMPRESSION: Please see below. Exam: CT LOW EXT WO CONTRAST LEFT Date/Time of Exam: 05/08/2025 10:10 AM Reason For Exam: Soft tissue infection suspected, lower leg, no prior imaging;Osteomyelitis, foot. Diagnosis: Open wound of both lower extremities with complication, initial encounter; Open wound of both lower extremities with complication, initial encounter. Technique: CT of the left lower extremity was performed without the administration of intravenous contrast. Comparison: Left tibia/fibula radiographs 05/06/2025. Findings: Images degraded by beam hardening artifact related to the body habitus. Diffuse osteopenia. Vacuum phenomenon of the sacral iliac joints present. No CT evidence of acute fracture or dislocation identified. Periarticular tricompartmental degenerative change of the knee greatest within the patellofemoral compartment. No additional significant joint space loss or productive change is seen. No cortical loss or aggressive osseous erosion identified to suggest CT evidence of acute osteomyelitis. Despite the technical soft tissue limitations of CT fatty replacement/volume loss of the left gluteal musculature and of the musculature involving the posterior compartment of the thigh and of the left lower extremity present. Nonspecific circumferential skin thickening of the left lower extremity greatest distally. An approximately 1.9 cm (transverse) by 2.0 cm (CC) soft tissue defect/ulceration about the lateral aspect of the midfoot present with adjacent skin thickening. Negative for CT evidence of a discrete drainable fluid collection. Incidental note of partial surgical resection of the fifth metatarsal. IMPRESSION: 1. Soft tissue defect/ulceration about the lateral aspect of the midfoot with CT findings suspicious for adjacent cellulitis with otherwise nonspecific circumferential skin thickening about the left lower extremity as described. Negative for definite CT evidence of acute osteomyelitis at this time. If high clinical concern for osteomyelitis further assessment with MRI or three-phase nuclear medicine bone scan would be recommended. 2. Status post partial fifth metatarsal resection arthroplasty. Paris LAMBERT CT ORDERABLES Final Result * CT LOW EXT WO CONTRAST RIGHT (05/08/2025 10:10 AM ELECTRICIAN REFINERY) Anatomical Region Laterality Modality Lower Extremity Computed Tomogra phy 05/08/2025 10:1 0 AM ELECTRICIAN REFINERY Impressions 05/08/2025 10:53 AM ELECTRICIAN REFINERY IMPRESSION: Please see below. Exam: CT LOW EXT WO CONTRAST RIGHT Date/Time of Exam: 05/08/2025 10:10 AM Reason For Exam: Soft tissue infection suspected, lower leg, no prior imaging;Osteomyelitis, foot. Diagnosis: Open wound of both lower extremities with complication, initial encounter; Open wound of both lower extremities with complication, initial encounter. Technique: CT of the right lower extremity was performed without the administration of intravenous contrast. Comparison: Right tibia and fibula 05/06/2025. Findings: Mild vacuum phenomenon of the right sacroiliac joint. Diffuse osteopenia is present. Tricompartmental degenerative change of the knee greatest in severity within the lateral aspect of the patellofemoral compartment. Nonspecific circumferential skin thickening with subcutaneous edema about the right lower extremity present. An approximately 3.1 cm (CC) by 5.0 cm (CC) soft tissue defect/ulceration about the plantar lateral aspect of the forefoot at the level of the fifth metatarsal base present. Status post partial surgical amputation of the fifth ray beyond the base of the fifth metatarsal. There is asymmetric sclerosis involving the base of the fifth metatarsal noted when compared to the base of the fourth metatarsal with loss of normal subcutaneous fat attenuation superficial to the remaining fifth metatarsal. No cortical loss or aggressive osseous erosion identified. Status post partial resection of the fourth metatarsal. Marked vascular calcification. Severe fatty replacement/volume loss of the musculature of the right lower extremity present. No cortical loss or aggressive osseous erosion identified to suggest CT evidence of acute osteomyelitis. Significant fatty replacement/volume loss of the right gluteal musculature and of the musculature of the posterior compartment of the right thigh noted. An approximately 10.9 cm (transverse) by 5.1 cm (AP) by 15.6 cm (CC) circumscribed region of heterogeneous attenuation with scattered calcification of the superior medial aspect of the right gluteus salome present. An additional approximately 2.3 cm (in diameter shallow soft tissue defect/ulceration about the dorsal aspect of the forefoot at the level of the fourth and fifth MTP is present. Incidental note of fat containing ventral hernia with additional fat and bowel-containing hypogastric ventral hernia. IMPRESSION: 1. Soft tissue defect/ulceration with CT findings suspicious for adjacent cellulitis and CT findings concerning for chronic osteomyelitis involving the remaining base of the fifth metatarsal status post partial surgical amputation of the fifth ray. 2. Status post partial surgical resection of the fourth metatarsal. 3. Nonspecific circumferential skin thickening about the right lower extremity as described with additional soft tissue defect/ulceration about the dorsal aspect of the forefoot as described. 4. Region of abnormal attenuation with scattered calcification of the superior medial aspect of the right gluteus salome muscle. Findings may represent CT evidence of calcific myonecrosis superimposed on underlying chronic fatty replacement/volume loss. Further assessment with MRI with and without contrast recommended. Narrative Procedure Note Xochitl Wyatt MD - 05/08/2025 IMPRESSION: Please see below. Exam: CT LOW EXT WO CONTRAST RIGHT Date/Time of Exam: 05/08/2025 10:10 AM Reason For Exam: Soft tissue infection suspected, lower leg, no prior imaging;Osteomyelitis, foot. Diagnosis: Open wound of both lower extremities with complication, initial encounter; Open wound of both lower extremities with complication, initial encounter. Technique: CT of the right lower extremity was performed without the administration of intravenous contrast. Comparison: Right tibia and fibula 05/06/2025. Findings: Mild vacuum phenomenon of the right sacroiliac joint. Diffuse osteopenia is present. Tricompartmental degenerative change of the knee greatest in severity within the lateral aspect of the patellofemoral compartment. Nonspecific circumferential skin thickening with subcutaneous edema about the right lower extremity present. An approximately 3.1 cm (CC) by 5.0 cm (CC) soft tissue defect/ulceration about the plantar lateral aspect of the forefoot at the level of the fifth metatarsal base present. Status post partial surgical amputation of the fifth ray beyond the base of the fifth metatarsal. There is asymmetric sclerosis involving the base of the fifth metatarsal noted when compared to the base of the fourth metatarsal with loss of normal subcutaneous fat attenuation superficial to the remaining fifth metatarsal. No cortical loss or aggressive osseous erosion identified. Status post partial resection of the fourth metatarsal. Marked vascular calcification. Severe fatty replacement/volume loss of the musculature of the right lower extremity present. No cortical loss or aggressive osseous erosion identified to suggest CT evidence of acute osteomyelitis. Significant fatty replacement/volume loss of the right gluteal musculature and of the musculature of the posterior compartment of the right thigh noted. An approximately 10.9 cm (transverse) by 5.1 cm (AP) by 15.6 cm (CC) circumscribed region of heterogeneous attenuation with scattered calcification of the superior medial aspect of the right gluteus salome present. An additional approximately 2.3 cm (in diameter shallow soft tissue defect/ulceration about the dorsal aspect of the forefoot at the level of the fourth and fifth MTP is present. Incidental note of fat containing ventral hernia with additional fat and bowel-containing hypogastric ventral hernia. IMPRESSION: 1. Soft tissue defect/ulceration with CT findings suspicious for adjacent cellulitis and CT findings concerning for chronic osteomyelitis involving the remaining base of the fifth metatarsal status post partial surgical amputation of the fifth ray. 2. Status post partial surgical resection of the fourth metatarsal. 3. Nonspecific circumferential skin thickening about the right lower extremity as described with additional soft tissue defect/ulceration about the dorsal aspect of the forefoot as described. 4. Region of abnormal attenuation with scattered calcification of the superior medial aspect of the right gluteus salome muscle. Findings may represent CT evidence of calcific myonecrosis superimposed on underlying chronic fatty replacement/volume loss. Further assessment with MRI with and without contrast recommended. us Paris LAMBERT CT ORDERABLES Final Result * US TRANSCUTANEOUS OXYGEN BEN MULTI (05/07/2025 3:24 PM ELECTRICIAN REFINERY) Anatomical Region Laterality Modality Lower Extremity Ultrasound 05/07/2025 2:07 PM ELECTRICIAN REFINERY Narrative 05/08/2025 12:32 PM ELECTRICIAN REFINERY [facility] Noninvasive Vascular Laboratory [facility]ly [facility] [place] [address] Noninvasive Vascular Lab Transcutaneous Oxygen Measurements Lower Extremity Patient: Edel Hidalgo Study ID: US TRANSCUTANEOU Gender: M : 1955 Age: 69 Room: Height: Weight: BSA: Pt status: Inpatient Study Date: 05/07/2025 Study Time: 02:07:51 PM BSA: Ordering: Paris Rodriguez Interpreting:Jonathan Abraham Bus Aide: CLAUDINE Indications: Healing potential. Summary Impression: Transcutaneous oximetry measurements at the right thigh, right below knee, right foot, left thigh, left below knee, and left foot . Study data: Bilateral lower extremity transcutaneous oxygen measurements. Location: Bedside. Patient status: Inpatient. Study status: Routine. TCp02 measurements - Right - Mid foot 43mm Hg (Room air) 133mm Hg (100% 02) - Below knee 50mm Hg (Room air) 243mm Hg (100% 02) - Mid Thigh 6mm Hg (Room air) 158mm Hg (100% 02) TCp02 measurements - Left - Mid foot 19mm Hg (Room air) 106mm Hg (Sup 02) - Below knee 27mm Hg (Room air) 181mm Hg (Sup 02) - Mid thigh 42mm Hg (Room air) 191mm Hg (Sup 02) [facility] is accredited with the Intersocietal Commission for the Accreditation of Vascular Laboratories (ICAVL) Prepared and Electronically Authenticated Jonathan Abraham Confirmed 05/08/2025 12:32 Procedure Note Jonathan Abraham MD - 05/08/2025 [facility] Noninvasive Vascular Laboratory [address] [place] [address] Noninvasive Vascular Lab Transcutaneous Oxygen Measurements Lower Extremity Patient: Edel Hidalgo Study ID: US TRANSCUTANEOU Gender: M : 1955 Age: 69 Room: Height: Weight: BSA: Pt status: Inpatient Study Date: 05/07/2025 Study Time: 02:07:51 PM BSA: Ordering: Paris Rodriguez Interpreting:Jonathan Abraham Bus Aide: CLAUDINE Indications: Healing potential. Summary Impression: Transcutaneous oximetry measurements at the right thigh, right belowknee, right foot, left thigh, left below knee, and left foot . Study data: Bilateral lower extremity transcutaneous oxygenmeasurements. Location: Bedside. Patient status: Inpatient. Study status:Routine. TCp02 measurements - Right - Mid foot 43mm Hg (Room air) 133mm Hg (100% 02) - Below knee 50mm Hg (Room air) 243mm Hg (100% 02) - Mid Thigh 6mm Hg (Room air) 158mm Hg (100% 02) TCp02 measurements - Left - Mid foot 19mm Hg (Room air) 106mm Hg (Sup 02) - Below knee 27mm Hg (Room air) 181mm Hg (Sup 02) - Mid thigh 42mm Hg (Room air) 191mm Hg (Sup 02) [facility] is accredited with theIntersocietal Commission for the Accreditation of Vascular Laboratories (ICAVL) Prepared and Electronically Authenticated Jonathan Abraham 05/08/2025 12:32 Paris LAMBERT ORDERABLES Final Result * (ABNORMAL) WOUND (AEROBIC) CULTURE WITH GRAM STAIN (05/07/2025 2:52 AM ELECTRICIAN REFINERY) CULTURE PSEUDOMONAS AERUGINOSA(A) MONICA MCG/ML 05/09/2025 7:47 AM ELECTRICIAN REFINERY [facility] GRAM STAIN No organisms observed 05/09/2025 7:47 AM ELECTRICIAN REFINERY [facility] GRAM STAIN 4+ (Heavy) Polymorphonuclear WBC 05/09/2025 7:47 AM [facility] Wound (Other, specify) Collection / Unknown 05/07/2025 2:52 AM ELECTRICIAN REFINERY 05/07/2025 2:54 AM ELECTRICIAN REFINERY Narrative Organism Antibiotic Method Susceptibility Pseudomonas aeruginosa CEFEPIME MONICA MCG/ML 8 mcg/mL: Susceptible Pseudomonas aeruginosa GENTAMICIN MONICA MCG/ML Resistant Pseudomonas aeruginosa CIPROFLOXACIN MONICA MCG/ML 0.5 mcg/mL: Susceptible Pseudomonas aeruginosa LEVOFLOXACIN MONICA MCG/ML 1 mcg/mL: Susceptible Pseudomonas aeruginosa PIPERACILLIN/ TAZOBACTAM MONICA MC G/ML <=4 mcg/mL: Susceptible Comment:Aminoglycosides shou ld not be used as monotherapy for infections outside the urinary tract. Consultation with an infectious diseases specialist is recommended. Shekhar Todd MD MICROBIOLOGY - GENERAL ORDERABLES Final Result [facility] CLIA # [id number] [address] [place] [id number] * XR TIBIA AND FIBULA 2 VW BILAT (05/06/2025 11:00 PM ELECTRICIAN REFINERY) Anatomical Region Laterality Modality Lower Extremity Computed Radiogr aphy 05/06/2025 11:0 0 PM ELECTRICIAN REFINERY Impressions 05/07/2025 7:18 AM ELECTRICIAN REFINERY IMPRESSION: Negative for an acute bony abnormality. . Narrative 05/07/2025 7:18 AM ELECTRICIAN REFINERY EXAM: XR TIBIA AND FIBULA 2 VW BILAT DATE/TIME OF EXAM: 05/06/2025 11:00 PM REASON FOR EXAM: Other - Please see comments, Comment: r/o gas/osteomyelitis DIAGNOSIS: Open wound of both lower extremities with complication, initial encounter; Open wound of both lower extremities with complication, initial encounter COMPARISON: None FINDINGS: No evidence of acute fracture or suspicious bony lesion bilaterally. No definitive acute osseous abnormalities. Diffuse lower extremities soft tissue swelling; no radiographically visible soft tissue emphysema. Relatively extensive dystrophic calcification the soft tissues distally in the bilateral legs, which may relate to prior infection or chronic venous disease. Bones appear osteopenic. Procedure Note Stevenson Montoya MD - 05/07/2025 EXAM: XR TIBIA AND FIBULA 2 VW BILAT DATE/TIME OF EXAM: 05/06/2025 11:00 PM REASON FOR EXAM: Other - Please see comments, Comment: r/o gas/osteomyelitis DIAGNOSIS: Open wound of both lower extremities with complication, initial encounter; Open wound of both lower extremities with complication, initial encounter COMPARISON: None FINDINGS: No evidence of acute fracture or suspicious bony lesion bilaterally. No definitive acute osseous abnormalities. Diffuse lower extremities soft tissue swelling; no radiographically visible soft tissue emphysema. Relatively extensive dystrophic calcification the soft tissues distally in the bilateral legs, which may relate to prior infection or chronic venous disease. Bones appear osteopenic. IMPRESSION: Negative for an acute bony abnormality. . Shekhar Todd MD DIAGNOSTIC IMAGING ORDE [facility] Final Result * BLOOD CULTURE (05/06/2025 4:54 PM ELECTRICIAN REFINERY) Only the most recent of2 resultswithin the time period is included. BLOOD CULTURE No growth 05/11/2025 6:14 PM ELECTRICIAN REFINERY [facility] Blood (Peripheral) Venipuncture / Unknown 05/06/2025 4:54 PM ELECTRICIAN REFINERY 05/06/2025 4:57 PM ELECTRICIAN REFINERY Narrative [facility] - 05/11/2025 6:14 PM ELECTRICIAN REFINERY Specimen processed with suboptimal blood volume collected. us Cezar LAMBERT MICROBIOLOGY - GENERAL ORDER [place] Final Result [facility] CLIA # [id number] [address] [place] [address] [place] [address] * (ABNORMAL) SEDIMENTATION RATE (05/06/2025 12:04 PM ELECTRICIAN REFINERY) ESR (SEDIMENTATION RATE) 104(H) 0 - 10 mm/Hr 05/06/2025 3:54 PM ELECTRICIAN REFINERY [facility] Blood Venipuncture / Unknown 05/06/2025 12:04 PM ELECTRICIAN REFINERY 05/06/2025 12:17 PM ELECTRICIAN REFINERY Cezar LAMBERT HEMATOLOGY ORDERABLES Final Result Performing Organization Address [facility] Co de Phone Number [facility] CLIA # [id number] [address] [address] * (ABNORMAL) C-REACTIVE PROTEIN (05/06/2025 12:04 PM ELECTRICIAN REFINERY) Pathologist [facility] CRP 143.9(H) 0.0 - 5.0 mg/L 05/06/2025 3:35 PM ELECTRICIAN REFINERY [facility] Blood Venipuncture / Unknown 05/06/2025 12:04 PM ELECTRICIAN REFINERY 05/06/2025 12:19 PM ELECTRICIAN REFINERY Cezar LAMBERT CHEMISTRY ORDERABLES Final R esult Performing Organization Address [facility] Co de Phone Number [facility] CLIA # [id number] [address] [address] * (ABNORMAL) BRAIN NATRIURETIC PEPTIDE, BNP OR PROBNP (05/06/2025 12:04 PM ELECTRICIAN REFINERY) Pathologist [facility] PROBNP, N TERMINAL 1,226(H) 0 - 125 pg/mL 05/06/2025 12:53 PM ELECTRICIAN REFINERY [facility] Comment: INTERPRETIVE COMMENT based on diagnosis: Diagnostic NT pro-BNP cutoffs for Heart Failure in the absence of renal failure is suggested for the following ranges <75 years: <125 pg/mL >=75 years: <450 pg/mL Exclusionary rule out cut-point for Acute Decompensated Heart Failure(ADHF) All ages: <300 pg/mL Diagnostic NT pro-BNP cutoffs for Acute Decompensated Heart Failure(ADHF) in the absence of renal failure is suggested for the following ages <50 years: > 450 pg/mL 50-75 years: > 900 pg/mL >75 years: >1800 pg/mL Blood Venipuncture / Unknown 05/06/2025 12:04 PM ELECTRICIAN REFINERY 05/06/2025 12:19 PM ELECTRICIAN REFINERY Thalia Babb [facility] CHEMISTRY ORDERABLES nal Result [facility] # [id number] [address] [place] [address] * (ABNORMAL) HEMOGLOBIN A1C (03/13/2025 4:49 PM CDT) HEMOGLOBIN A1C 6.5(H) <5.7 % [facility] Comment: For someone without known diabetes, a hemoglobin A1c value of 6.5% or greater indicates that they may have diabetes and this should be confirmed with a follow-up test. For someone with known diabetes, a value <7% indicates that their diabetes is well controlled and a value greater than or equal to 7% indicates suboptimal control. A1c targets should be individualized based on duration of diabetes, age, comorbid conditions, and other considerations. Currently, no consensus exists regarding use of hemoglobin A1c for diagnosis of diabetes for children. ESTIMATED AVERAGE GLUCOSE (MG/DL) 140 mg/dL [facility] ESTIMATED AVERAGE GLUCOSE (MMOL/L) 7.7 mmol/L [facility] Comment: Test Performed at: [facility] [address] [phone] Hitesh Cho MD Blood 03/13/2025 4:49 PM CDT 03/15/2025 5:14 AM CDT Benjamin Cardenas MD CHEMISTRY ORDERABLES Lisa l Result Performing Organization Address [facility]/ZIP Co de Phone Number [facility] [phone] [facility] [address] * (ABNORMAL) MICROALBUMIN/CREATININE RATIO, RANDOM UR (08/06/2024 9:53 AM ELECTRICIAN REFINERY) Creatinine, Urine 61 20 - 320 mg/dL [facility] MICROALBUMIN, URINE 3.4 See Note: mg/dL [facility] Comment: Reference Range: Reference Range Not established MICROALBUMIN/CREAT RATIO, UR 56(H) <30 mg/g creat [facility] Comment: The ADA defines abnormalities in albumin excretion as follows: Albuminuria Category Result (mg/g creatinine) Normal to Mildly increased <30 Moderately increased 30-299 Severely increased > OR = 300 The ADA recommends that at least two of three specimens collected within a 3-6 month period be abnormal before considering a patient to be within a diagnostic category. Test Performed at: [facility] [address] [place] [phone] Hitesh Cho MD Urine URINE SPECIMEN OBTAINED BY CLEAN CATCH PROCEDURE / Unknown 08/06/2024 9:53 AM ELECTRICIAN REFINERY 08/08/2024 4:11 AM ELECTRICIAN REFINERY Benjamin Cardenas MD URINE ORDERABLES Final Re sult Performing Organization Address [facility]/ZIP Co de Phone Number [facility] [phone] [facility] [address] [place] [phone] * (ABNORMAL) LIPID PANEL (08/06/2024 9:43 AM ELECTRICIAN REFINERY) CHOLESTEROL 147 <200 mg/dL [facility] HDL 35(L) > OR = 40 mg/dL [facility] TRIGLYCERIDE 164(H) <150 mg/dL [facility] LDL CALCULATED 86 mg/dL (calc) [facility] Comment: Reference range: <100 Desirable range <100 mg/dL for primary prevention; <70 mg/dL for patients with CHD or diabetic patients with > or = 2 CHD risk factors. LDL-C is now calculated using the Jennie calculation, which is a validated novel method providing better accuracy than the Friedewald equation in the estimation of LDL-C. Adam ZHAO et al. LAMAR. 2013;310(19): 5247-6429 (http://education.Tapatap/faq/NKS966) CHOL/HDL RATIO 4.2 <5.0 (calc) [facility] NON-HDL CHOLESTEROL 112 <130 mg/dL (calc) [facility] Comment: For patients with diabetes plus 1 major ASCVD risk factor, treating to a non-HDL-C goal of <100 mg/dL (LDL-C of <70 mg/dL) is considered a therapeutic option. Test Performed at: [facility] [address] [place] [address] Hitesh Cho MD Blood 08/06/2024 9:43 AM ELECTRICIAN REFINERY 08/07/2024 2:45 AM ELECTRICIAN REFINERY Benjamin Cardenas MD CHEMISTRY ORDERABLES Lisa l Result [facility] [phone] [facility] [address] [place] [address] from Last 3 Months or Most Recently Relevant to Health Maintenance Insurance [place] PART A [place] B Advance Directives For more information, please contact: [phone] * Full Code (Latest Code Status on File) Date Activated Date Inactivated Comments 05/06/2025 4:09 PM 05/27/2025 1:18 PM * Full Code Date Activated Date Inactivated Comments 05/01/2024 8:55 AM 05/06/2025 11:17 AM * Full Code Date Activated Date Inactivated Comments 12/28/2021 9:58 PM 12/30/2021 3:12 PM * Full Code Date Activated Date Inactivated Comments 04/22/2021 12:48 PM 04/23/2021 1:58 AM Care Teams Patients Transporter Relationship Specialty Start Date End Date Benjamin Cardenas MD [address] [place] [address] PCP - General Family Practice 02/11/22
--- OUTSIDE RECORDS SUMMARY | 2025-06-17 12:17 | XMS_ITS | Patient Health Record ---
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
== END 2025-06-17 16:10 | disposition home or self-care (01) ==
PROVIDERS: Emergency Provider Emergency Medicine; PCP Family Medicine
DX: K60.40 Rectal fistula, unspecified (principal); Z79.01 Long term (current) use of anticoagulants; E11.22 Type 2 diabetes mellitus with diabetic chronic kidney disease; I13.2 Hypertensive heart and chronic kidney disease with heart failure and with stage 5 chronic kidney disease, or end stage renal disease; I50.9 Heart failure, unspecified; N18.6 End stage renal disease; Z89.511 Acquired absence of right leg below knee; Z89.512 Acquired absence of left leg below knee
CPT/HCPCS: 36415; 80053; 85025; 96374; 96375; 99284; J1171; J2405